=== PATIENT | male | born 1930 | race Caucasian/White ===

== ENCOUNTER 2017-12-14 16:49 | Emergency (ER) | payer MEDICARE ==
--- NOTE | 2017-12-14 17:19 | ED ---
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 Patient has been straight cathing himself for that time period. Patient presents today with 2 days of left testicular swelling. He also reports today when he was straight cathing himself he noticed some blood within his urine. Patient reports that yesterday evening he was gardening and feeling normal. He denies any fever or chills. Denies any new active pain. Patient states he's had no abdominal pain. His urologist is Dr. Daley.Patient denies any recent fever, chills, shortness of breath, chest pain, back pain, abdominal pain, nausea vomiting, numbness or tingling, constipation or diarrhea , headaches or visual changes, or any other current symptoms - Related Data Previous Rx's Medication Instructions Recorded Levofloxacin [Levaquin] 500 mg PO DAILY #20 tab 12/14/17 Allergies Allergy/AdvReac Type Severity Reaction Status Date / Time No Known Allergies Allergy Verified 12/14/17 17:02 Review of Systems ROS Statement: Those systems with pertinent positive or pertinent negative responses have been documented in the HPI. ROS Other: All systems not noted in ROS Statement are negative. Past Medical History Past Medical History: Thyroid Disorder Additional Past Medical History / Comment(s): Pt uses straight catheterization History of Any Multi-Drug Resistant Organisms: None Reported Past Surgical History: Hernia Repair, Orthopedic Surgery Past Psychological History: No Psychological Hx Reported Smoking Status: Former smoker Past Alcohol Use History: None Reported Past Drug Use History: None Reported General Exam - General Exam Comments Initial Comments: 87-year-old male. Alert and oriented. No acute distress. Limitations: no limitations General appearance: alert, in no apparent distress Head exam: Present: atraumatic Eye exam: Present: normal appearance, PERRL, EOMI. Absent: scleral icterus, conjunctival injection, periorbital swelling ENT exam: Present: normal exam, mucous membranes moist Neck exam: Present: normal inspection. Absent: tenderness, meningismus, lymphadenopathy Respiratory exam: Present: normal lung sounds bilaterally. Absent: respiratory distress, wheezes, rales, rhonchi, stridor Cardiovascular Exam: Present: regular rate, normal rhythm, normal heart sounds. Absent: systolic murmur, diastolic murmur, rubs, gallop, clicks GI/Abdominal exam: Present: soft, normal bowel sounds. Absent: distended, tenderness, guarding, rebound, rigid exam: Present: testicular tenderness (Left testicular tenderness and swelling noted.), scrotal swelling (Left-sided). Absent: circumcision (Patient is uncircumcised. Foreskin appears normal. Able to be retracted without difficulty.) Extremities exam: Present: normal inspection, full ROM, normal capillary refill. 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 Patient has been straight cathing himself for that time period. Patient presents today with 2 days of left testicular swelling. He also reports today when he was straight cathing himself he noticed some blood within his urine. Patient's urinalysis is positive for infection 60 white blood cells. Urine culture obtained. Ultrasound of the scrotum shows evidence of left sided epididymitis. Consistent with patient's consent systems and swelling. He does straight cath. Discussed sterile techniques to complete straight cath. We'll put the Patient on Levaquin for 10 days. Patient given n initial dose in the emergency department. Patient understands treatment plan will comply. He will follow-up with his urologist. - Lab Data Lab Results 12/14/17 Range/Units 17:28 Urine Color Yellow Urine Appearance Clear (Clear) Urine pH 5.5 (5.0-8.0) Ur Specific [place] 1.010 (1.001-1.035) Urine Protein Negative (Negative) Urine Glucose (UA) Negative (Negative) Urine Ketones Negative (Negative) Urine Blood Moderate H (Negative) Urine Nitrite Negative (Negative) Urine Bilirubin Negative (Negative) Urine Urobilinogen <2.0 (<2.0) mg/dL Ur Leukocyte Esterase Large H (Negative) Urine RBC 10 H (0-5) /hpf Urine WBC 61 H (0-5) /hpf Urine WBC Clumps Few H (None) /hpf - Radiology Data Radiology results: report reviewed Findings correlate with clinical exam is of left-sided epididymitis. Right testicle is 4.4 x 3.1 x 2 point recent admission. Left testicle is 4.9 x 3.8 x 3.5. Right epididymis 2.2 x 1 cm. Left epididymis is 2.4 x 1.9 x 2.6 m. The left testicular cyst Patient 0.6 5.6.5. Disposition Clinical Impression: Left epididymitis, UTI (urinary tract infection) Disposition: HOME SELF-CARE Condition: Good Instructions: Urinary Tract Infection in Men (ED), Epididymitis (ED), Scrotal Pain (ED) Additional Instructions: Patient was completely entire antibiotic prescription. Recommended follow-up with your urologist. Patient can do scrotal elevation. Return to the emergency department if any alarming signs or symptoms occur. Prescriptions: Levofloxacin [Levaquin] 500 mg PO DAILY #20 tab Is patient prescribed a controlled substance at d/c from ED?: No When asked, does pt state using other controlled substances?: No If prescribed controlled substance>3 days was MAPS reviewed?: No If opioid is for acute pain is fill amount 7 days or less?: No If Rx opioid, was Start Talking consent form obtained?: No Referrals: Angie Palomares MD [Primary Care Provider] - 1-2 days Time of Disposition: 19:41
[2017-12-14 17:40] LABS: Appearance,Urine Clear (Clear); Bilirubin,Urine Negative (Negative); Blood,Urine Moderate (Negative); Color,Urine Yellow; Glucose,Urine (UA) Negative (Negative); Ketones,Urine Negative (Negative); Leukocyte Esterase,Urine Large (Negative); Nitrite,Urine Negative (Negative); PH, Urine 5.5 (5.0-8.0); Protein,Urine Negative (Negative); RBC,Urine 10 /hpf (0-5); Urobilinogen,Urine <2.0 mg/dL (<2.0); WBC,Urine 61 /hpf (0-5)
[2017-12-14 19:11] VITALS: PULSE 70
--- NOTE | 2017-12-14 19:26 | US ---
EXAMINATION TYPE: US scrotum with doppler. Grayscale and color Doppler Duplex imaging performed of t keysha scrotum. DATE OF EXAM: 12/14/2017 COMPARISON: NONE CLINICAL HISTORY: Pain. EXAM MEASUREMENTS: TESTICLES: Right Testicle: 4.4 x 3.1 x 2.3 cm Left Testicle: 4.9 x 3.8 x 3.5 cm EPIDIDYMIS HEAD: Right Epididymis: 2.2 X 1.0 x 1.0 cm Left Epididymis: 2.4 x 1.9 x 2.6cm cm Doppler performed to assess for testicular vascularity; good bilateral color flow and waveforms are s een. There is no evidence of testicular torsion. Heterogeneous echotexture noted within bilateral testes. Presence of hydroceles: Small amount of fluid noted inferior left scrotal sac. Presence of varicoceles: No. Left scrotal sac has increased wall thickness. Enlarged left epididymis is seen throughout with hyper vascularity to left epididymis compared to right side. Left testicular cyst present = 0.6 x 0.6 x 0.5 cm at mid gland. IMPRESSION: 1. Negative for testicular torsion. 2. Findings which can correlate with a clinical diagnosis of left-sided epididymitis.
[2017-12-14] MEDS ORDERED: LEVOFLOXACIN 500 MG TAB PO STA (19:39)
[2017-12-14 19:52] VITALS: BP 119/70; RESP 18; TEMP 98.6
== END 2017-12-14 20:05 | disposition home or self-care (01) ==
LOC: EC 16:49
DX: N45.1 Epididymitis (principal); N39.0 Urinary tract infection, site not specified; Z87.891 Personal history of nicotine dependence
CPT/HCPCS: 76870; 81001; 87086; 93975; 99284

== ENCOUNTER 2018-03-14 16:29 | Inpatient (IN) | payer MEDICARE ==
[2018-03-14] MEDS ORDERED: ASPIRIN 81 MG PO STA (17:20)
[2018-03-14] MEDS ORDERED: SODIUM CHLORIDE 0.9% 1,000 ML IV STA (17:20)
--- NOTE | 2018-03-14 17:23 | ED ---
Chest Pain HPI - General Chief Complaint: Chest Pain Stated Complaint: Chest/arm pain Time Seen by Provider: 03/14/18 17:00 Source: patient, RN notes reviewed Mode of arrival: wheelchair Limitations: no limitations - History of Present Illness Initial Comments: This is a 87-year-old male with a history of prostatism no prior history of heart disease that he knows of who is had intermittent episodes of chest pain over the last week or so. He states it's intermittent 1-2 minutes in duration 4 -5/10 severity achy pain it radiates from his chest down his left arm. He also is had exertional dyspnea over last week or so. Currently he is symptom free no palpitations no lightheadedness dizziness blurry vision or other symptoms reported at this time. MD Complaint: chest pain, other - Related Data Previous Rx's Medication Instructions Recorded Levofloxacin [Levaquin] 500 mg PO DAILY #20 tab 12/14/17 Allergies Allergy/AdvReac Type Severity Reaction Status Date / Time No Known Allergies Allergy Verified 03/14/18 16:45 Review of Systems ROS Statement: Those systems with pertinent positive or pertinent negative responses have been documented in the HPI. ROS Other: All systems not noted in ROS Statement are negative. EKG Findings - EKG Results: EKG: interpreted by ERMD (Evidence of atrial fibrillation rate was 76 QRS 80 QT since QTC 44/454 low-voltage QRS nonspecific inferior changes poor R-wave progression occasional PVC) Past Medical History Past Medical History: Thyroid Disorder Additional Past Medical History / Comment(s): Pt uses straight catheterization History of Any Multi-Drug Resistant Organisms: None Reported Past Surgical History: Hernia Repair, Orthopedic Surgery Past Psychological History: No Psychological Hx Reported Smoking Status: Former smoker Past Alcohol Use History: None Reported Past Drug Use History: None Reported General Exam - General Exam Comments Initial Comments: This is a well up well-nourished awake alert oriented 3 male Limitations: no limitations General appearance: alert, in no apparent distress Head exam: Present: atraumatic, normocephalic, normal inspection Eye exam: Present: normal appearance, PERRL, EOMI. Absent: scleral icterus, conjunctival injection, periorbital swelling ENT exam: Present: normal exam, mucous membranes moist Neck exam: Present: normal inspection. Absent: tenderness, meningismus, lymphadenopathy Respiratory exam: Present: normal lung sounds bilaterally. Absent: respiratory distress, wheezes, rales, rhonchi, stridor Cardiovascular Exam: Present: irregular rhythm. Absent: systolic murmur, diastolic murmur, rubs, gallop, clicks GI/Abdominal exam: Present: soft, normal bowel sounds. Absent: distended, tenderness, guarding, rebound, rigid Extremities exam: Present: normal inspection, full ROM, normal capillary refill. Absent: tenderness, pedal edema, joint swelling, calf tenderness Back exam: Present: normal inspection Neurological exam: Present: alert, oriented X3, CN II-XII intact Psychiatric exam: Present: normal affect, normal mood Skin exam: Present: warm, dry, intact, normal color. 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 There is evidence of a 1.6 cm right lower lung nodule Critical Care Time Critical Care Time: Yes Critical Care Time: 31 minutes of critical care time which includes initial presentation with history physical labs x-rays reevaluation patient several occasions discussion with patient family regarding findings discussed with the main physician admission orders and documentation of the above Disposition Clinical Impression: Unstable angina pectoris, Chest pain, Right lower lobe pulmonary nodule Disposition: ADMITTED IP TO THIS [facility] Condition: Stable Referrals: Angie Palomares MD [Primary Care Provider] - 1-2 days
[2018-03-14 17:54] LABS: Basophils # (A) 0.1 k/uL (0-0.2); Basophils % (A) 1 %; Eosinophils # (A) 0.3 k/uL (0-0.7); Eosinophils % (A) 4 %; HCT 38.7 % (39.0-53.0); HGB 12.6 gm/dL (13.0-17.5); Lymphocytes # (A) 0.8 k/uL (1.0-4.8); Lymphocytes % (A) 12 %; MCH 29.4 pg (25.0-35.0); MCHC 32.5 g/dL (31.0-37.0); MCV 90.5 fL (80.0-100.0); Mean Platelet Volume 7.5; Monocytes # (A) 0.4 k/uL (0-1.0); Monocytes % (A) 6 %; Neutrophils # (A) 5.2 k/uL (1.3-7.7); Neutrophils % (A) 75 %; Platelet Count 141 k/uL (150-450); RBC 4.28 m/uL (4.30-5.90); RDW 13.8 % (11.5-15.5); WBC 6.9 k/uL (3.8-10.6)
[2018-03-14 18:05] LABS: Potassium 4.3 mmol/L (3.5-5.1); Total Bilirubin 2.2 mg/dL (0.2-1.3); Total Protein 6.8 g/dL (6.3-8.2)
[2018-03-14 18:13] LABS: INR 1.2 (<1.2); Partial Thromboplastin Time 25.4 sec (22.0-30.0); Prothrombin Time 11.4 sec (9.0-12.0)
[2018-03-14 18:26] LABS: Creatine Kinase MB 3.2 ng/mL (0.0-2.4); Troponin I 0.086 ng/mL (0.000-0.034)
--- NOTE | 2018-03-14 18:26 | XR ---
EXAMINATION TYPE: XR chest 2V DATE OF EXAM: 03/14/2018 COMPARISON: NONE HISTORY: Chest pain TECHNIQUE: Frontal and lateral views of the chest are obtained. FINDINGS: 1.6 cm nodule is seen in the right lower lung. There is no additional focal air space opaci ty, pleural effusion, or pneumothorax seen. The cardiac silhouette size is within normal limits. T he osseous structures are intact. IMPRESSION: 1.6 cm right lower lung nodule. Consideration should be given to nonemergent CT for further evaluatio n. Comparison with prior studies if available would be of benefit.
[2018-03-14] MEDS ORDERED: HEPARIN SODIUM,PORCINE 5,000 UNIT/ML 1 ML VIAL IV ONE (19:41)
[2018-03-14] MEDS ORDERED: NITROGLYCERIN SL TABS 0.4 MG TAB SUBLINGUAL PRN (19:41)
--- NOTE | 2018-03-14 19:44 | ED ---
Medical Decision Making - Lab Data Result diagrams: 03/14/18 17:21 03/14/18 17:21 Lab Results 03/14/18 03/14/18 03/14/18 Range/Units 17:21 17:21 17:21 WBC 6.9 (3.8-10.6) k/uL RBC 4.28 L (4.30-5.90) m/uL Hgb 12.6 L (13.0-17.5) gm/dL Hct 38.7 L (39.0-53.0) % MCV 90.5 (80.0-100.0) fL MCH 29.4 (25.0-35.0) pg MCHC 32.5 (31.0-37.0) g/dL RDW 13.8 (11.5-15.5) % Plt Count 141 L (150-450) k/uL Neutrophils % 75 % Lymphocytes % 12 % Monocytes % 6 % Eosinophils % 4 % Basophils % 1 % Neutrophils # 5.2 (1.3-7.7) k/uL Lymphocytes # 0.8 L (1.0-4.8) k/uL Monocytes # 0.4 (0-1.0) k/uL Eosinophils # 0.3 (0-0.7) k/uL Basophils # 0.1 (0-0.2) k/uL PT (9.0-12.0) sec INR (<1.2) APTT (22.0-30.0) sec Sodium 138 (137-145) mmol/L Potassium 4.3 (3.5-5.1) mmol/L Chloride 105 (98-107) mmol/L Carbon Dioxide 25 (22-30) mmol/L Anion Gap 8 mmol/L BUN 16 (9-20) mg/dL Creatinine 1.00 (0.66-1.25) mg/dL Est GFR (CKD-EPI)AfAm 78 (>60 ml/min/1.73 sqM) Est GFR (CKD-EPI)NonAf 67 (>60 ml/min/1.73 sqM) Glucose 112 H (74-99) mg/dL Calcium 9.0 (8.4-10.2) mg/dL Magnesium 2.0 (1.6-2.3) mg/dL Total Bilirubin 2.2 H (0.2-1.3) mg/dL AST 38 (17-59) U/L ALT 33 (21-72) U/L Alkaline Phosphatase 100 (38-126) U/L Total Creatine Kinase 176 H (55-170) U/L CK-MB (CK-2) 3.2 H* (0.0-2.4) ng/mL CK-MB (CK-2) Rel Index 1.8 Troponin I 0.086 H* (0.000-0.034) ng/mL Total Protein 6.8 (6.3-8.2) g/dL Albumin 4.0 (3.5-5.0) g/dL 03/14/18 Range/Units 17:21 WBC (3.8-10.6) k/uL RBC (4.30-5.90) m/uL Hgb (13.0-17.5) gm/dL Hct (39.0-53.0) % MCV (80.0-100.0) fL MCH (25.0-35.0) pg MCHC (31.0-37.0) g/dL RDW (11.5-15.5) % Plt Count (150-450) k/uL Neutrophils % % Lymphocytes % % Monocytes % % Eosinophils % % Basophils % % Neutrophils # (1.3-7.7) k/uL Lymphocytes # (1.0-4.8) k/uL Monocytes # (0-1.0) k/uL Eosinophils # (0-0.7) k/uL Basophils # (0-0.2) k/uL PT 11.4 (9.0-12.0) sec INR 1.2 H (<1.2) APTT 25.4 (22.0-30.0) sec Sodium (137-145) mmol/L Potassium (3.5-5.1) mmol/L Chloride (98-107) mmol/L Carbon Dioxide (22-30) mmol/L Anion Gap mmol/L BUN (9-20) mg/dL Creatinine (0.66-1.25) mg/dL Est GFR (CKD-EPI)AfAm (>60 ml/min/1.73 sqM) Est GFR (CKD-EPI)NonAf (>60 ml/min/1.73 sqM) Glucose (74-99) mg/dL Calcium (8.4-10.2) mg/dL Magnesium (1.6-2.3) mg/dL Total Bilirubin (0.2-1.3) mg/dL AST (17-59) U/L ALT (21-72) U/L Alkaline Phosphatase (38-126) U/L Total Creatine Kinase (55-170) U/L CK-MB (CK-2) (0.0-2.4) ng/mL CK-MB (CK-2) Rel Index Troponin I (0.000-0.034) ng/mL Total Protein (6.3-8.2) g/dL Albumin (3.5-5.0) g/dL Disposition Clinical Impression: Unstable angina pectoris, Chest pain, Right lower lobe pulmonary nodule, Atrial fibrillation Disposition: ADMITTED IP TO THIS HOSP Condition: Stable Referrals: Angie Palomares MD [Primary Care Provider] - 1-2 days
[2018-03-14] MEDS: SODIUM CHLORIDE 0.9% 1,000 ML IV SCH (20:06)
[2018-03-14] MEDS: HEPARIN SOD,PORK IN 0.45% NACL 25,000 UNIT in 0.45% NACL 1 500ML.BAG IV SCH (20:07)
[2018-03-14 21:02] VITALS: BMI 27.2
[2018-03-14] MEDS: NITROGLYCERIN OINT 1 INCH/GM PACKET TOPICAL SCH (23:01)
[2018-03-15 00:28] LABS: Troponin I 0.091 ng/mL (0.000-0.034)
[2018-03-15 01:32] LABS: Cholesterol 120 mg/dL (<200); HDL Cholesterol 66 mg/dL (40-60); LDL Cholesterol,Calculated 41 mg/dL (0-99); Triglycerides 64 mg/dL (<150)
[2018-03-15] MEDS: NITROGLYCERIN OINT 1 INCH/GM PACKET TOPICAL SCH ×4 (06:11→23:21)
[2018-03-15] MEDS: LEVOTHYROXINE 75 MCG TAB PO SCH (06:11)
[2018-03-15 06:57] LABS: Creatine Kinase MB 3.3 ng/mL (0.0-2.4); Troponin I 0.093 ng/mL (0.000-0.034)
--- NOTE | 2018-03-15 10:53 | P.CRDCN ---
History of Present Illness Consult date: 03/15/18 Requesting physician: Breonna Zapien Consult reason: chest pain Chief complaint: Chest pain History of present illness: This is a pleasant 87-year-old gentleman with no prior documented history of hypertension, no diabetes, no hyperlipidemia, nonsmoker, history of hypothyroidism and asthma, patient also states that he had been told in the past when he was in [place], 5 or 6 years ago to have had an irregular heartbeat , he was never initiated on any blood thinners. He also states he underwent a stress test and subsequent cardiac catheterization at that time and was told not to have any significant blockages. He presents to the hospital on this occasion with symptoms of approximately 2 week or more duration of chest discomfort. Initially patient started noticing, that when he would walk on his dry weight, even a short distance that he would need to stop because he would develop heaviness in his chest with some radiation to the back and down his arm , shortness of breath, symptoms would subside and patient would again this continue walking. He also states that he has been waking up on occasion at night and difficulty with taking a deep breath. Symptoms of chest discomfort had been getting progressively worse and for this reason he came to the emergency room for further evaluation. EKG on arrival showed atrial fibrillation with a heart rate in the 70s, occasional PVC. Subsequent EKG performed showed atrial fibrillation with controlled ventricular response. Inferior, anterior lateral changes suggesting prior myocardial infarction. Chest x-ray shows a 1.6 cm right lower lung nodule consideration should be given to non-emergent CT for further evaluation. Blood pressure 124/76 heart rate in the 80s, 97.3 temperature, 96% on room air. A blood cell count 6.9, hemoglobin 12.6, platelet count 141. Sodium 138, potassium 4.3, chloride 105, CO2 25, BUN 16, creatinine 1.0. Magnesium 2.0. Troponin 0.086, 0.091, 0.093. At the time of my examination this morning, patient denies any chest discomfort , breathing is stable. Past Medical History Past Medical History: Thyroid Disorder Additional Past Medical History / Comment(s): Pt uses straight catheterization History of Any Multi-Drug Resistant Organisms: None Reported Past Surgical History: Hernia Repair, Orthopedic Surgery Additional Past Surgical History / Comment(s): left knee replacement, back surgery, prostste surgery Past Psychological History: No Psychological Hx Reported Smoking Status: Former smoker Past Alcohol Use History: None Reported Past Drug Use History: None Reported Medications and Allergies Home Medications Medication Instructions Recorded Confirmed Type Levothyroxine Sodium [Synthroid] 75 mcg PO DAILY 03/14/18 03/15/18 History Albuterol Inhaler [Ventolin Hfa 1 - 2 puff INHALATION RT-Q6H PRN 03/15/18 History Inhaler] Allergies Allergy/AdvReac Type Severity Reaction Status Date / Time No Known Allergies Allergy Verified 03/15/18 09:25 Physical Exam Vitals: Vital Signs Temp Pulse Pulse Resp BP BP Pulse Ox 03/15/18 08:30 97.3 F L 82 16 125/76 96 03/15/18 03:59 77 18 03/15/18 03:58 97.2 F L 77 18 119/81 95 03/15/18 00:00 97.4 F L 85 18 118/77 94 L 03/14/18 21:00 85 18 03/14/18 20:51 97.0 F L 85 18 144/83 94 L 03/14/18 20:04 97.6 F 63 16 118/72 95 03/14/18 19:13 97.3 F L 75 18 122/70 95 03/14/18 18:44 71 18 124/70 98 03/14/18 17:24 56 L 03/14/18 16:41 98.6 F 82 18 129/82 95 Intake and Output 03/14/18 03/15/18 03/15/18 22:59 06:59 14:59 Intake Total 160 Balance 160 Intake: Intake, IV Titration 160 Amount Sodium Chloride 0.9% 1, 160 000 ml @ 20 mls/hr IV . Q24H [facility] Rx#:[id number] Other: Voiding Method Self-Catheterization Self-Catheterization Weight 86.183 kg 93.1 kg PHYSICAL EXAMINATION: GENERAL: 87-year-old gentleman in no acute distress at the time of my examination HEENT: Head is atraumatic, normocephalic. Pupils equal, round. Sclera anicteric. Conjunctiva are clear. Mucous membranes of the mouth are moist. Neck is supple. There is no elevated jugular venous pressure. No Carotid bruit is heard. HEART EXAMINATION: Heart S1-S2 irregularly irregular systolic murmur is heard. CHEST EXAMINATION: Lungs are clear to auscultation and precussion. No chest wall tenderness is noted on palpation or with deep breathing. ABDOMEN: Soft, nontender. Bowel sounds are heard. No organomegaly noted. EXTREMITIES: 2+ peripheral pulses with no evidence of peripheral edema and no calf tenderness noted. NEUROLOGIC patient is awake, alert and oriented X3. . Results 03/14/18 17:21 03/14/18 17:21 Cardiac Enzymes 03/14/18 03/14/18 03/14/18 Range/Units 17:21 17:21 23:18 AST 38 (17-59) U/L CK-MB (CK-2) 3.2 H* 3.0 H* (0.0-2.4) ng/mL Troponin I 0.086 H* 0.091 H* (0.000-0.034) ng/mL 03/15/18 Range/Units 05:54 AST (17-59) U/L CK-MB (CK-2) 3.3 H* (0.0-2.4) ng/mL Troponin I 0.093 H* (0.000-0.034) ng/mL Coagulation 03/14/1818 03/15/18 Range/Units 17:21 23:18 05:54 PT 11.4 (9.0-12.0) sec APTT 25.4 51.5 H 54.4 H (22.0-30.0) sec Lipids 03/14/18 Range/Units 17:21 Triglycerides 64 (<150) mg/dL Cholesterol 120 (<200) mg/dL HDL Cholesterol 66 H (40-60) mg/dL CBC 03/14/18 Range/Units 17:21 WBC 6.9 (3.8-10.6) k/uL RBC 4.28 L (4.30-5.90) m/uL Hgb 12.6 L (13.0-17.5) gm/dL Hct 38.7 L (39.0-53.0) % Plt Count 141 L (150-450) k/uL Comprehensive Metabolic Panel 03/14/18 Range/Units 17:21 Sodium 138 (137-145) mmol/L Potassium 4.3 (3.5-5.1) mmol/L Chloride 105 (98-107) mmol/L Carbon Dioxide 25 (22-30) mmol/L BUN 16 (9-20) mg/dL Creatinine 1.00 (0.66-1.25) mg/dL Glucose 112 H (74-99) mg/dL Calcium 9.0 (8.4-10.2) mg/dL AST 38 (17-59) U/L ALT 33 (21-72) U/L Alkaline Phosphatase 100 (38-126) U/L Total Protein 6.8 (6.3-8.2) g/dL Albumin 4.0 (3.5-5.0) g/dL Current Medications Generic Name Dose Route Start Last Admin Trade Name Freq PRN Reason Stop Dose Admin Aspirin 325 mg 03/15/18 09:00 Aspirin PO DAILY [facility] Heparin Sodium/Sodium Chloride 500 mls @ 19.99 mls/hr 03/14/18 19:45 20:07 25,000 unit/ Sodium Chloride IV 11.6 units/kg/hr .Q24H [facility]A 19.99 mls/hr Administration Protocol 11.6 UNITS/KG/HR Sodium Chloride 1,000 mls @ 20 mls/hr 03/14/18 19:45 03/14/18 20:06 Saline 0.9% IV 20 mls/hr .Q24H [facility] Administration Levothyroxine Sodium 75 mcg 03/15/18 06:00 03/15/18 06:11 Synthroid PO 75 mcg DAILY@0600 [facility] Administration Nitroglycerin 1 inch 03/15/18 00:00 03/15/18 06:11 Nitro-Bid Oint TOPICAL Not Given Q6HR [facility] Nitroglycerin 0.4 mg 03/14/18 19:41 Nitrostat SUBLINGUAL Q5M PRN Chest Pain Intake and Output 03/14/18 03/15/18 03/15/18 22:59 06:59 14:59 Intake Total 160 Balance 160 Intake: Intake, IV Titration 160 Amount Sodium Chloride 0.9% 1, 160 000 ml @ 20 mls/hr IV . 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 Assessment and Plan Plan: Assessment and plan #1 symptoms of exertional chest discomfort and shortness of breath, suggestive of possible acute coronary syndrome. Troponins 0.08, 0.09, 0.09. EKG shows atrial fibrillation with controlled ventricular response, ST-T wave changes suggestive of prior inferior anterior lateral [place] #2 history of cardiac catheterization 5 or 6 years ago in [place] at which time patient was told not to have any significant obstructive coronary artery disease #3 atrial fibrillation, chronic persistent, not on anticoagulation #4 hypothyroidism Plan We will obtain an echocardiogram with Doppler study. Continue IV heparin at this time. We will start the patient on a statin as well as beta marce, continue aspirin. Patient may require further intervention in the form of cardiac catheterization, the risks and benefits were explained to him in detail. We will first review the results of the echocardiogram with Doppler study. Patient was also educated regarding the need for anticoagulation. DNP note has been reviewed, I agree with a documented findings and plan of care. Patient was seen and examined.
[2018-03-15] MEDS: ASPIRIN 325 MG TAB PO SCH (12:13)
--- NOTE | 2018-03-15 12:35 | ECHOF ---
Referral Reason:chest pain MEASUREMENTS -------- HEIGHT: 177.8 cm WEIGHT: 93.0 kg BP: 125/76 RVIDd: 3.0 cm (< 3.3) IVSd: 1.6 cm (0.6 - 1.1) LVIDd: 4.0 cm (3.9 - 5.3) LVPWd: 1.4 cm (0.6 - 1.1) IVSs: 1.9 cm LVIDs: 2.8 cm LVPWs: 1.7 cm LAESV Index (A-L): 47.92 ml/m Ao Diam: 3.4 cm (2.0 - 3.7) AV Cusp: 2.3 cm (1.5 - 2.6) LA Diam: 3.9 cm (2.7 - 3.8) EPSS: 0.2 cm MV E Chencho: 1.12 m/s MV DecT: 245 ms MV A Chencho: 0.01 m/s MV E/A Ratio: 204.46 RAP: 15.00 mmHg RVSP: 43.09 mmHg MV EF SLOPE: 129.61 mm/s (70 - 150) MV EXCURSION: 1.73 cm (> 18.000) FINDINGS -------- Atrial fibrillation. This was a technically adequate study. The left ventricular size is normal. There is moderate concentric left ventricular hypertrophy. O verall left ventricular systolic function is mildly impaired with, an EF between 45 - 50 %. The right ventricle is normal in size and function. LA is severely dilated >40 ml/m2 The right atrium is markedly enlarged. There is mild aortic valve sclerosis. There is no evidence of aortic regurgitation. There is no e vidence of aortic stenosis. The mitral valve leaflets are mildly thickened. [id number] mitral regurgitation is present. Moderate to severe tricuspid regurgitation present. There is mild pulmonary hypertension. The rig ht ventricular systolic pressure, as measured by Doppler, is 43.09mmHg. The pulmonic valve was not well visualized. There is no pulmonic regurgitation present. The aortic root size is normal. The inferior vena cava is dilated with no significant inspiratory collapse which is consistent estima imelda right atrial pressure of >20 mmHg. There is a trivial pericardial effusion present. CONCLUSIONS -------- 1. Atrial fibrillation. 2. This was a technically adequate study. 3. The left ventricular size is normal. 4. There is moderate concentric left ventricular hypertrophy. 5. Overall left ventricular systolic function is mildly impaired with, an EF between 45 - 50 %. 6. LA is severely dilated >40 ml/m2 7. The right atrium is markedly enlarged. 8. There is mild aortic valve sclerosis. 9. The mitral valve leaflets are mildly thickened. 10. [id number] mitral regurgitation is present. 11. Moderate to severe tricuspid regurgitation present. 12. There is mild pulmonary hypertension. 13. The pulmonic valve was not well visualized. 14. There is no pulmonic regurgitation present. 15. The aortic root size is normal. 16. The inferior vena cava is dilated with no significant inspiratory collapse which is consistent es timated right atrial pressure of >20 mmHg. 17. There is a trivial pericardial effusion present. [employer] HAND: Tom Corona RDCS
--- NOTE | 2018-03-15 13:53 | P.HPIM ---
History of Present Illness H&P Date: 03/15/18 Chief Complaint: Chest pain Mr. Sanchez is an 87-year-old male with a past medical history of hypothyroidism admitted to the hospital with a chief complaint of chest pain. The patient states that he has been having substernal chest pain on and off, that is exertional in nature, 6 out of 10 in intensity, radiating to his left shoulder and back. Patient also complaining of exertional dyspnea for the past couple of weeks. Patient denies having any fever, cough. No sick contacts. Patient denies having any sweating or dizziness associated with the chest pain. No loss of consciousness or lightheadedness or blurring of vision. Patient denies having any orthopnea or PND or lower extremity swelling. Patient does not have any history of coronary artery disease. He states that he had a stress test done 5-6 years back and was told to be normal. At baseline patient is healthy able to take care of himself and lives with his . Patient denies having any history of smoking or alcohol use. Review of Systems REVIEW OF SYSTEMS: PSYCH: No history of anxiety or depression NEURO:No c/o weakness of the extremties, No facial droop, No speech abnormalities. VASCULAR: No lower extremity swelling. HEMATOLOGIC: No history of easy bleeding and bruising . No recent infections . RESPIRATORY: No cough, No SOB, No chest discomfort. IMMUNE: No infections INTEGUMENT: no rashes OPHTHALMOLOGIC: No blurry vision and no eye discharge : No dysuria or hematuria CARDIAC: As per HPI MUSCULOSKELETAL : No Aches or pains in the joints or muscles. GI: No abdominal pain, Nausea or vomiting. No constipation or diarrhea. Past Medical History Past Medical History: Thyroid Disorder Additional Past Medical History / Comment(s): Pt uses straight catheterization History of Any Multi-Drug Resistant Organisms: None Reported Past Surgical History: Hernia Repair, Orthopedic Surgery Additional Past Surgical History / Comment(s): left knee replacement, back surgery, prostste surgery Past Psychological History: No Psychological Hx Reported Smoking Status: Former smoker Past Alcohol Use History: None Reported Past Drug Use History: None Reported Medications and Allergies Home Medications Medication Instructions Recorded Confirmed Type Levothyroxine Sodium [Synthroid] 75 mcg PO DAILY 03/14/18 03/15/18 History Albuterol Inhaler [Ventolin Hfa 1 - 2 puff INHALATION RT-Q6H PRN 03/15/18 History Inhaler] Allergies Allergy/AdvReac Type Severity Reaction Status Date / Time No Known Allergies Allergy Verified 03/15/18 09:25 Physical Exam Vitals: Vital Signs Temp Pulse Pulse Resp BP BP Pulse Ox 03/15/18 11:55 88 16 129/72 95 03/15/18 08:30 97.3 F L 82 16 125/76 96 03/15/18 03:59 77 18 03/15/18 03:58 97.2 F L 77 18 119/81 95 03/15/18 00:00 97.4 F L 85 18 118/77 94 L 03/14/18 21:00 85 18 03/14/18 20:51 97.0 F L 85 18 144/83 94 L 03/14/18 20:04 97.6 F 63 16 118/72 95 03/14/18 19:13 97.3 F L 75 18 122/70 95 03/14/18 18:44 71 18 124/70 98 03/14/18 17:24 56 L 03/14/18 16:41 98.6 F 82 18 129/82 95 Intake and Output 03/14/18 03/15/18 03/15/18 22:59 06:59 14:59 Intake Total 160 240 Output Total 600 Balance 160 -360 Intake: Intake, IV Titration 160 Amount Sodium Chloride 0.9% 1, 160 000 ml @ 20 mls/hr IV . Q24H [facility] Rx#:[id number] Oral 240 Output: Urine 600 Other: Voiding Method Self-Catheterization Self-Catheterization Self-Catheterization Weight 86.183 kg 93.1 kg GENERAL EXAM GEN. APPEARANCE: alert, in no apparent distress HEAD EXAM: atraumatic, normocephalic, normal inspection EYE EXAM: No pallor no icterus ENT EXAM: normal exam, mucous membranes moist NECK EXAM: No JVD no thyromegaly RESPIRATORY EXAM: Bilateral breath sounds are normal. Few crackles on the right lower lobe. CARDIOVASCULAR EXAM: S1-S2 heard, tachycardia GI/ABDOMINAL EXAM: soft, normal bowel sounds. Absent: distended, tenderness, guarding, rebound, rigid EXTREMITIES EXAM: No pedal edema BACK EXAM: normal inspection NEUROLOGICAL EXAM: alert, oriented X3, no focal neurological deficits PSYCHIATRIC EXAM: normal affect, normal mood SKIN EXAM: warm, dry, intact, normal color. Absent: rash Results CBC & Chem 7: 03/14/18 17:21 03/14/18 17:21 Labs: Abnormal Lab Results - Last 24 Hours (Table) 03/14/18 03/14/18 03/14/18 Range/Units 17:21 17:21 17:21 RBC 4.28 L (4.30-5.90) m/uL Hgb 12.6 L (13.0-17.5) gm/dL Hct 38.7 L (39.0-53.0) % Plt Count 141 L (150-450) k/uL Lymphocytes # 0.8 L (1.0-4.8) k/uL INR (<1.2) APTT (22.0-30.0) sec Glucose 112 H (74-99) mg/dL Total Bilirubin 2.2 H (0.2-1.3) mg/dL Total Creatine Kinase 176 H (55-170) U/L CK-MB (CK-2) 3.2 H* (0.0-2.4) ng/mL Troponin I 0.086 H* (0.000-0.034) ng/mL HDL Cholesterol (40-60) mg/dL 03/14/18 03/14/18 03/14/18 Range/Units 17:21 17:21 23:18 RBC (4.30-5.90) m/uL Hgb (13.0-17.5) gm/dL Hct (39.0-53.0) % Plt Count (150-450) k/uL Lymphocytes # (1.0-4.8) k/uL INR 1.2 H (<1.2) APTT (22.0-30.0) sec Glucose (74-99) mg/dL Total Bilirubin (0.2-1.3) mg/dL Total Creatine Kinase (55-170) U/L CK-MB (CK-2) 3.0 H* (0.0-2.4) ng/mL Troponin I 0.091 H* (0.000-0.034) ng/mL HDL Cholesterol 66 H (40-60) mg/dL 03/14/18 03/15/18 03/15/18 Range/Units 23:18 05:54 05:54 RBC (4.30-5.90) m/uL Hgb (13.0-17.5) gm/dL Hct (39.0-53.0) % Plt Count (150-450) k/uL Lymphocytes # (1.0-4.8) k/uL INR (<1.2) APTT 51.5 H 54.4 H (22.0-30.0) sec Glucose (74-99) mg/dL Total Bilirubin (0.2-1.3) mg/dL Total Creatine Kinase (55-170) U/L CK-MB (CK-2) 3.3 H* (0.0-2.4) ng/mL Troponin I 0.093 H* (0.000-0.034) ng/mL HDL Cholesterol (40-60) mg/dL Thrombosis Risk Factor Assmnt - Choose All That Apply Any of the Below Risk Factors Present?: No Other Risk Factors: Yes Each Risk Factor Represents 3 Points: Age 75 years or older Thrombosis Risk Factor Assessment Total Risk Factor Score: 3 Thrombosis Risk Factor Assessment Level: Moderate Risk Assessment and Plan Assessment: ASSESSMENT NSTEMI A. fib with rate controlled Hypothyroidism Degenerative joint disease Plan: Patient has been started on IV heparin. Echocardiogram with Doppler pending. Cardiology has been consulted. Currently his A. fib is rate controlled, no acute intervention necessary. Continue with the rest of his home medications. Further recommendations depending on the progress of the patient. The treatment plan was discussed with the , daughter and granddaughter at the bedside in detail.
[2018-03-15] MEDS: METOPROLOL TARTRATE 25 MG TAB PO SCH (20:14)
[2018-03-15] MEDS: SODIUM CHLORIDE 0.9% 1,000 ML IV SCH (20:17)
[2018-03-15] MEDS: HEPARIN SOD,PORK IN 0.45% NACL 25,000 UNIT in 0.45% NACL 1 500ML.BAG IV SCH (22:32)
[2018-03-16] MEDS: LEVOTHYROXINE 75 MCG TAB PO SCH (06:29)
[2018-03-16] MEDS: NITROGLYCERIN OINT 1 INCH/GM PACKET TOPICAL SCH ×4 (06:29→23:14)
[2018-03-16 06:38] LABS: Basophils % (A) 1 %; Eosinophils # (A) 0.2 k/uL (0-0.7); Eosinophils % (A) 5 %; HCT 35.2 % (39.0-53.0); HGB 11.2 gm/dL (13.0-17.5); Lymphocytes # (A) 0.8 k/uL (1.0-4.8); Lymphocytes % (A) 19 %; MCH 29.5 pg (25.0-35.0); MCHC 31.9 g/dL (31.0-37.0); MCV 92.3 fL (80.0-100.0); Mean Platelet Volume 7.3; Monocytes # (A) 0.3 k/uL (0-1.0); Monocytes % (A) 6 %; Neutrophils # (A) 2.9 k/uL (1.3-7.7); Neutrophils % (A) 68 %; Platelet Count 131 k/uL (150-450); RBC 3.81 m/uL (4.30-5.90); RDW 13.9 % (11.5-15.5); WBC 4.3 k/uL (3.8-10.6)
[2018-03-16 06:52] LABS: Calcium 8.5 mg/dL (8.4-10.2); Potassium 4.4 mmol/L (3.5-5.1)
[2018-03-16] MEDS ORDERED: NITROGLYCERIN SL TABS 0.4 MG TAB SUBLINGUAL PRN (08:44)
[2018-03-16] MEDS ORDERED: ALPRAZolam 0.5 MG TAB PO PRN (08:44)
[2018-03-16] MEDS ORDERED: ASPIRIN 325 MG TAB PO STA (08:44)
[2018-03-16] MEDS ORDERED: ATORVASTATIN 40 MG TAB PO STA (08:44)
[2018-03-16] MEDS ORDERED: SODIUM CHLORIDE 0.9% 1,000 ML in EMPTY BAG 1 BAG IV ONE (08:44)
[2018-03-16] MEDS ORDERED: ALPRAZolam 0.25 MG TAB PO PRN (08:44)
[2018-03-16] MEDS: METOPROLOL TARTRATE 25 MG TAB PO SCH ×2 (08:46→20:30)
[2018-03-16] MEDS: ASPIRIN 325 MG TAB PO SCH (08:46)
[2018-03-16] MEDS: ATORVASTATIN 40 MG TAB PO SCH (08:46)
[2018-03-16 11:28] LABS: Glucose,Whole Blood 108 mg/dL (75-99)
[2018-03-16] MEDS ORDERED: IV FLUID CONTINUATION 800 ML IV ONE (13:44)
[2018-03-16] MEDS: fentaNYL (PF) 50 MCG/ML 2 ML AMP IV ONE ×2 (13:44→13:49)
[2018-03-16] MEDS ORDERED: LIDOCAINE 1% (PF) 10MG/ML VIAL SQ ONE (13:49)
[2018-03-16] MEDS ORDERED: IOPAMIDOL-370 125ML BTL INJ ONE (14:06)
[2018-03-16] MEDS ORDERED: RX INFO: IV CONTRAST WAS GIVEN 1 EACH MISC MISCELLANE PRN (14:24)
--- NOTE | 2018-03-16 14:52 | P.CARDCATH ---
Date of Procedure: 03/16/18 Preoperative Diagnosis: Non-ST elevation IL, CHF, atrial fibrillation Postoperative Diagnosis: Diffuse noncritical coronary artery disease, preserved LV function and moderate mitral regurgitation Procedure(s) Performed: Left heart catheterization with left ventriculography Description of Procedure: HISTORY: This is a 87-year-old gentleman with history of mild coronary artery disease who was admitted to the hospital with increasing shortness of breath and chest pains. Patient had abnormal troponin values consistent with non-ST elevation IL. EKG however, did not show any acute changes. Patient is advised to have a cardiac catheterization for definitive diagnosis. Echo showed evidence of moderate to severe mitral regurgitation. BNP levels are elevated. CONSENT:I have discussed the risks, benefits and alternative therapies for the above-mentioned procedure and for both sedation/analgesia as well as necessary blood product administration, if indicated, as they pertain to this patient. The patient has indicated understanding and acceptance of the risks and procedures discussed. [] PROCEDURE: Patient was brought to the lab in a fasting state. Patient was given some IV sedation. The right groin is infiltrated with lidocaine and right femoral artery was entered using Seldinger technique. A 6-Arabic catheter was left in place and selective coronary arteriography and left ventriculography was performed. Patient tolerated the procedure well. Femoral angiogram was performed and Angio-Seal was applied for hemostasis. No immediate complications were noted and patient was transferred to selective care in a stable condition Conscious Sedation: Versed 0 mg Fentanyl 37.5 g Duration 20 minutes HEMODYNAMICS: The aortic pressure is 140/95. Left ventricular end-diastolic pressure is 16. No gradient across the aortic valve SELECTIVE CORONARY ARTERIOGRAPHY: LEFT MAIN: Normal length and patent THE LEFT ANTERIOR DESCENDING CORONARY ARTERY:. Diffuse coronary artery disease with about 40-50% stenosis in the proximal segment and a 50-60% stenosis in the distal segment. No critical lesions are noted THE LEFT CIRCUMFLEX AND IS CORONARY ARTERY:. Dominant vessel giving rise to good-sized OM branch. Free of any significant occlusive disease THE RIGHT CORONARY ARTERY:. Good caliber vessel giving rise to good-sized PDA and PLV. Free of any significant occlusive disease LEFT VENTRICULOGRAPHY:. This was performed 30 right and Toprol projection which revealed mildly dilated left ventricle with fairly preserved LV function. Ejection fraction is a 50-55%. There is about 3+ mitral regurgitation FINAL IMPRESSION: Diffuse coronary artery disease with a intermediate disease in the LAD in the proximal and midportion. Right coronary artery and circumflex are free of any significant focal lesions PLAN: Maximum medical therapy and this factor modification PROGNOSIS: Guarded
[2018-03-16] MEDS ORDERED: IBUPROFEN 400 MG TAB PO STA (15:30)
[2018-03-16] MEDS: FUROSEMIDE 40 MG TAB PO SCH (15:35)
[2018-03-16] MEDS: SODIUM CHLORIDE 0.9% 1,000 ML IV SCH (15:35)
[2018-03-16 16:34] VITALS: RESP 18
[2018-03-16] MEDS ORDERED: HEPARIN SOD,PORK IN 0.45% NACL 25,000 UNIT in 0.45% NACL 1 500ML.BAG IV SCH ×2 (18:30)
[2018-03-17] MEDS: SODIUM CHLORIDE 0.9% 1,000 ML IV SCH (05:04)
[2018-03-17 06:44] LABS: Calcium 8.5 mg/dL (8.4-10.2); Potassium 4.2 mmol/L (3.5-5.1)
[2018-03-17] MEDS: LEVOTHYROXINE 75 MCG TAB PO SCH (06:44)
[2018-03-17] MEDS: NITROGLYCERIN OINT 1 INCH/GM PACKET TOPICAL SCH ×2 (06:53→11:48)
[2018-03-17] MEDS: FUROSEMIDE 40 MG TAB PO SCH (08:09)
[2018-03-17] MEDS: ASPIRIN 325 MG TAB PO SCH (08:09)
[2018-03-17] MEDS: METOPROLOL TARTRATE 25 MG TAB PO SCH (08:09)
[2018-03-17] MEDS: ATORVASTATIN 40 MG TAB PO SCH (08:09)
[2018-03-17] MEDS ORDERED: APIXABAN 2.5 MG TABLET PO SCH (11:45)
[2018-03-17 12:31] VITALS: BP 143/85; PULSE 70; TEMP 96
--- NOTE | 2018-03-17 13:38 | P.PN ---
Subjective Progress Note Date: 03/16/18 Principal diagnosis: Acute non-ST elevated OR Atrial fibrillation with controlled ventricular rate Mr. Sanchez is an 87-year-old male with a past medical history of hypothyroidism admitted to the hospital with a chief complaint of chest pain. The patient states that he has been having substernal chest pain on and off, that is exertional in nature, 6 out of 10 in intensity, radiating to his left shoulder and back. Patient also complaining of exertional dyspnea for the past couple of weeks. Patient denies having any fever, cough. No sick contacts. Patient denies having any sweating or dizziness associated with the chest pain. No loss of consciousness or lightheadedness or blurring of vision. Patient denies having any orthopnea or PND or lower extremity swelling. Patient does not have any history of coronary artery disease. He states that he had a stress test done 5-6 years back and was told to be normal. At baseline patient is healthy able to take care of himself and lives with his . Patient denies having any history of smoking or alcohol use. 03/16/2018 Patient denied any complaints of worsening shortness of breath. Patient does have some chest tightness. Otherwise no fever no chills. Continues to be in atrial fibrillation. Patient is being taken to cardiac catheterization today. Continued on heparin drip. No nausea vomiting or abdominal pain. No other acute overnight issues. Discussed with the family in detail at bedside. All other review of systems negative except the above Current medications reviewed Objective - Vital Signs Vital signs: Vital Signs Temp 97.2 F L 03/16/18 08:00 Pulse 71 03/16/18 08:00 Resp 18 03/16/18 08:00 BP 100/74 03/16/18 08:00 Pulse Ox 94 L 03/16/18 08:00 Intake & Output 03/15/18 03/16/18 03/16/18 18:59 06:59 18:59 Intake Total 560 720 Output Total 600 Balance -40 720 Weight 92.9 kg Intake: IV 220 Sodium Chloride 0.9% 1, 220 000 ml @ 20 mls/hr IV . Q24H [facility] Rx#:[id number] Intake, IV Titration 320 500 Amount Heparin Sod,Pork in 0.45% 160 500 NaCl 25,000 unit In 0.45 % NaCl 1 500ml.bag @ 11.6 UNITS/KG/HR 19.99 mls/hr IV .Q24H [facility] Rx#: [id number] Sodium Chloride 0.9% 1, 160 000 ml @ 20 mls/hr IV . Q24H [facility] Rx#:[id number] Oral 240 Output: Urine 600 Other: Voiding Method Self-Catheterization Self-Catheterization Self-Catheterization - Exam PHYSICAL EXAMINATION: Patient is lying in the bed comfortably, no acute distress, awake alert and oriented. Hard of hearing.. HEENT: Normocephalic. Neck is supple. Pupils reactive. Nostrils clear. Oral cavity is moist. Ears reveal no drainage. Neck reveals no JVD, carotid bruits, or thyromegaly. CHEST EXAMINATION: Trachea is central. Symmetrical expansion. Bibasilar diminished air entry. Lung guy clear to auscultation and percussion. CARDIAC: Normal S1, S2 with no gallops. Systolic murmur. ABDOMEN: Soft. Bowel sounds normal. No organomegaly. No abdominal bruits. Extremities: reveal no edema. No clubbing or cyanosis Neurologically awake, alert, oriented x3 with well-coordinated movements. Possible underlying dementia. No focal deficits noted Skin: No rash or skin lesions. Psychiatric: Coperative. Nonsuicidal Musculoskeletal: No joint swelling or deformity. Normal range of motion. - Labs CBC & Chem 7: 03/16/18 05:55 03/17/18 05:52 Labs: Abnormal Lab Results - Last 24 Hours (Table) 03/16/18 03/16/18 03/16/18 Range/Units 05:55 05:55 05:55 RBC 3.81 L (4.30-5.90) m/uL Hgb 11.2 L (13.0-17.5) gm/dL Hct 35.2 L (39.0-53.0) % Plt Count 131 L (150-450) k/uL Lymphocytes # 0.8 L (1.0-4.8) k/uL APTT 56.6 H (22.0-30.0) sec Sodium 135 L (137-145) mmol/L Assessment and Plan Assessment: Acute NSTEMI A. fib with rate controlled Hypothyroidism Degenerative joint disease Possible dementia Plan: Patient will be continued on heparin drip. 2-D echocardiogram showed normal ejection fraction and moderate to severe tricuspid and mitral regurgitation. Cardiology is planning for cardiac catheterization today. Otherwise continue the current management and further recommendations based on the clinical course. The treatment plan was discussed with the , daughter and granddaughter at the bedside in detail. Time with Patient: Greater than 30
--- NOTE | 2018-03-17 13:54 | P.DS ---
Providers Date of admission: 03/14/18 19:41 Expected date of discharge: 03/17/18 Attending physician: Breonna Zapien Consults: 03/14/18 19:41 Consult Physician Urgent Consulting Provider: Ryan Bardales Consult Reason/Comments: Chest pain, unstable angina, elevated troponin Do you want consulting provider notified?: Yes Primary care physician: Angie Palomares Hospital Course: Discharge diagnosis Acute NSTEMI. Status post cardiac catheterization ASabrina mckeon with rate controlled Hypothyroidism Degenerative joint disease Possible dementia Moderate mitral regurgitation Hospital course Mr. Sanchez is an 87-year-old male with a past medical history of hypothyroidism admitted to the hospital with a chief complaint of chest pain. The patient states that he has been having substernal chest pain on and off, that is exertional in nature, 6 out of 10 in intensity, radiating to his left shoulder and back. Patient also complaining of exertional dyspnea for the past couple of weeks. Patient denies having any fever, cough. No sick contacts. Patient denies having any sweating or dizziness associated with the chest pain. No loss of consciousness or lightheadedness or blurring of vision. Patient denies having any orthopnea or PND or lower extremity swelling. Patient does not have any history of coronary artery disease. He states that he had a stress test done 5-6 years back and was told to be normal. At baseline patient is healthy able to take care of himself and lives with his . Patient denies having any history of smoking or alcohol use. 03/16/2018 Patient denied any complaints of worsening shortness of breath. Patient does have some chest tightness. Otherwise no fever no chills. Continues to be in atrial fibrillation. Patient is being taken to cardiac catheterization today. Continued on heparin drip. No nausea vomiting or abdominal pain. No other acute overnight issues. Discussed with the family in detail at bedside. 03/17/2018 Cardiac catheterization showed Diffuse noncritical coronary artery disease, preserved LV function and moderate mitral regurgitation. Patient denied any complaints of chest pain or shortness of breath. Continues to be on atrial fibrillation. Clear Cardiology standpoint. Plan: Patient was continued on heparin drip. 2-D echocardiogram showed normal ejection fraction and moderate to severe tricuspid and mitral regurgitation. Patient underwent cardiac catheterization. Ventricular rate is controlled otherwise patient is still in atrial fibrillation. Patient was was started on oral anticoagulation. Patient otherwise denied any new complaints. Symptomatically much improved. Recommended to follow-up with cardiology clinic and maximal medical therapy will be continued. The treatment plan was discussed with the , daughter and granddaughter at the bedside in detail. PHYSICAL EXAMINATION: Patient is lying in the bed comfortably, no acute distress, awake alert and oriented.. HEENT: Normocephalic. Neck is supple. Pupils reactive. Nostrils clear. Oral cavity is moist. Ears reveal no drainage. Neck reveals no JVD, carotid bruits, or thyromegaly. CHEST EXAMINATION: Trachea is central. Symmetrical expansion. Lung guy clear to auscultation and percussion. CARDIAC: Normal S1, S2 with no gallops. Systolic murmurs ABDOMEN: Soft. Bowel sounds normal. No organomegaly. No abdominal bruits. Extremities: reveal no edema. No clubbing or cyanosis Neurologically awake, alert, oriented x3 with well-coordinated movements. No focal deficits noted Skin: No rash or skin lesions. Psychiatric: Coperative. Nonsuicidal Musculoskeletal: No joint swelling or deformity. Normal range of motion. Vital Signs - 8 hr 03/17/18 03/17/18 07:58 12:00 Temperature 97.0 F L 96.0 F L Pulse Rate [ 80 70 Pick Up Man ] Respiratory 18 18 Rate Blood Pressure 141/83 143/85 [Right Arm] O2 Sat by Pulse 91 L 93 L Oximetry Total time taken greater than 35 minutes including 18 minutes for counseling and coordination of care. Patient Condition at Discharge: Stable Plan - Discharge Summary Discharge Rx Participant: No New Discharge Prescriptions: New Apixaban [Eliquis] 2.5 mg PO BID #60 tablet Aspirin 81 mg PO DAILY #30 chew Atorvastatin [Lipitor] 40 mg PO DAILY #30 tab Metoprolol Tartrate [Lopressor] 25 mg PO BID #60 tab Nitroglycerin Sl Tabs [Nitrostat] 0.4 mg SUBLINGUAL Q5M PRN #30 tab PRN Reason: Chest Pain Furosemide [Lasix] 40 mg PO BID@0900,1600 #60 tab Continue Levothyroxine Sodium [Synthroid] 75 mcg PO DAILY Albuterol Inhaler [Ventolin Hfa Inhaler] 1 - 2 puff INHALATION RT-Q6H PRN PRN Reason: Shortness Of Breath Discharge Medication List Levothyroxine Sodium [Synthroid] 75 mcg PO DAILY 03/14/18 [History] Albuterol Inhaler [Ventolin Hfa Inhaler] 1 - 2 puff INHALATION RT-Q6H PRN [History] Apixaban [Eliquis] 2.5 mg PO BID #60 tablet 03/17/18 [Rx] Aspirin 81 mg PO DAILY #30 chew 03/17/18 [Rx] Atorvastatin [Lipitor] 40 mg PO DAILY #30 tab 03/17/18 [Rx] Furosemide [Lasix] 40 mg PO BID@0900,1600 #60 tab 03/17/18 [Rx] Metoprolol Tartrate [Lopressor] 25 mg PO BID #60 tab 03/17/18 [Rx] Nitroglycerin Sl Tabs [Nitrostat] 0.4 mg SUBLINGUAL Q5M PRN #30 tab 03/17/18 [Rx ] Follow up Appointment(s)/Referral(s): Emilia Nichols NPC [Nurse Practitioner] - 03/24/18 10:30 am (Thursday) Angie Palomares MD [Primary Care Provider] - 03/23/18 9:00 am (Thursday) Patient Instructions/Handouts: *Surgery [facility] - After Heart Catheterization - Packager Head Instructions, A-fib (Atrial Fibrillation) (DC), Left Heart Catheterization (DC), Safe Use of Anticoagulants (DC) Discharge Disposition: HOME SELF-CARE
--- NOTE | 2018-03-17 14:22 | P.PN ---
Subjective Progress Note Date: 03/17/18 This is a pleasant 87-year-old gentleman with no prior documented history of hypertension, no diabetes, no hyperlipidemia, nonsmoker, history of hypothyroidism and asthma, patient also states that he had been told in the past when he was in [place], 5 or 6 years ago to have had an irregular heartbeat , he was never initiated on any blood thinners. He also states he underwent a stress test and subsequent cardiac catheterization at that time and was told not to have any significant blockages. He presents to the hospital on this occasion with symptoms of approximately 2 week or more duration of chest discomfort. Initially patient started noticing, that when he would walk on his dry weight, even a short distance that he would need to stop because he would develop heaviness in his chest with some radiation to the back and down his arm , shortness of breath, symptoms would subside and patient would again this continue walking. He also states that he has been waking up on occasion at night and difficulty with taking a deep breath. Symptoms of chest discomfort had been getting progressively worse and for this reason he came to the emergency room for further evaluation. EKG on arrival showed atrial fibrillation with a heart rate in the 70s, occasional PVC. Subsequent EKG performed showed atrial fibrillation with controlled ventricular response. Inferior, anterior lateral changes suggesting prior myocardial infarction. Chest x-ray shows a 1.6 cm right lower lung nodule consideration should be given to non-emergent CT for further evaluation. Blood pressure 124/76 heart rate in the 80s, 97.3 temperature, 96% on room air. A blood cell count 6.9, hemoglobin 12.6, platelet count 141. Sodium 138, potassium 4.3, chloride 105, CO2 25, BUN 16, creatinine 1.0. Magnesium 2.0. Troponin 0.086, 0.091, 0.093. At the time of my examination this morning, patient denies any chest discomfort , breathing is stable. 03/17/2018 Patient underwent a cardiac catheterization yesterday by Dr. Bucio, he was not found to have diffuse coronary artery disease with an intermediate lesion in the LAD and proximal and midportion. RCA and circumflex free of any lesions. Maximal medical therapy was advised. Because of his atrial fibrillation, the IV heparin was discontinued today and patient was started on Eliquis 2-1/2 mg one tablet by mouth twice a day, he was educated regarding the importance of watching for any bleeding. Blood pressure 133/78 heart rate in the 80s, temperature 97.8, 96% on room air. Sodium 136, potassium 4.2, BUN 19, creatinine 1.0. Objective - Vital Signs Vital signs: Vital Signs Temp 96.0 F L 03/17/18 12:00 Pulse 70 03/17/18 12:00 Resp 18 03/17/18 12:00 BP 143/85 03/17/18 12:00 Pulse Ox 93 L 03/17/18 12:00 Intake & Output 03/16/18 03/17/18 03/17/18 18:59 06:59 18:59 Intake Total 650 225 600 Balance 650 225 600 Weight 93.4 kg Intake: IV 50 225 Sodium Chloride 0.9% 1, 225 000 ml @ 75 mls/hr IV . [id number] SHAINA Rx#:[id number] Intake, IV Titration 600 Amount Sodium Chloride 0.9% 1, 600 000 ml @ 75 mls/hr IV . [id number] SHAINA Rx#:[id number] Oral 600 Other: Voiding Method Self-Catheterization Self-Catheterization Self-Catheterization # Voids 3 - Exam PHYSICAL EXAMINATION: GENERAL: 87-year-old gentleman in no acute distress at the time of my examination HEENT: Head is atraumatic, normocephalic. Pupils equal, round. Sclera anicteric. Conjunctiva are clear. Mucous membranes of the mouth are moist. Neck is supple. There is no elevated jugular venous pressure. No Carotid bruit is heard. HEART EXAMINATION: Heart S1-S2 irregularly irregular systolic murmur is heard. CHEST EXAMINATION: Lungs are clear to auscultation and precussion. No chest wall tenderness is noted on palpation or with deep breathing. ABDOMEN: Soft, nontender. Bowel sounds are heard. No organomegaly noted. EXTREMITIES: 2+ peripheral pulses with no evidence of peripheral edema and no calf tenderness noted. Right groin soft, no evidence of any hematoma. NEUROLOGIC patient is awake, alert and oriented X3. - Labs CBC & Chem 7: 03/16/18 05:55 03/17/18 05:52 Labs: Abnormal Lab Results - Last 24 Hours (Table) 03/17/18 Range/Units 05:52 Sodium 136 L (137-145) mmol/L Carbon Dioxide 21 L (22-30) mmol/L Assessment and Plan Plan: Assessment and plan #1 symptoms of exertional chest discomfort and shortness of breath, suggestive of possible acute coronary syndrome. Troponins 0.08, 0.09, 0.09. EKG shows atrial fibrillation with controlled ventricular response, ST-T wave changes suggestive of prior inferior anterior lateral TN #2 history of cardiac catheterization 5 or 6 years ago in [place] at which time patient was told not to have any significant obstructive coronary artery disease #3 atrial fibrillation, chronic persistent, not on anticoagulation #4 hypothyroidism Plan Echo with Doppler study was performed which revealed an ejection fraction of 45- 50%. Moderate to severe mitral regurgitation, moderate to severe tricuspid regurgitation. Cardiac catheterization was performed which revealed diffuse coronary artery disease, medical therapy was advised. was started today on Eliquis 2-1/2 mg one tablet by mouth twice a day for anticoagulation for stroke prevention. He may be able to be discharged home from cardiology's perspective, to follow-up in the office post discharge. DNP note has been reviewed, I agree with a documented findings and plan of care. Patient was seen and examined.
[2018-03-18] MEDS ORDERED: ASPIRIN 81 MG PO SCH (09:00)
== END 2018-03-17 13:11 | disposition home or self-care (01) | DRG 281 ==
LOC: EC 16:29 → 6SEL 19:41
PROVIDERS: ADMIT Hospitalist; ATTEND Hospitalist
PROC: B2111ZZ Fluoroscopy of Multiple Coronary Arteries using Low Osmolar Contrast (ICD-10-PCS; 2018-03-16)
PROC: B2151ZZ Fluoroscopy of Left Heart using Low Osmolar Contrast (ICD-10-PCS; 2018-03-16)
PROC: 4A023N7 Measurement of Cardiac Sampling and Pressure, Left Heart, Percutaneous Approach (ICD-10-PCS; principal; 2018-03-16 13:30)
DX: I21.4 Non-ST elevation (NSTEMI) myocardial infarction (principal); I48.1 Persistent atrial fibrillation; E03.9 Hypothyroidism, unspecified; I08.1 Rheumatic disorders of both mitral and tricuspid valves; I25.110 Atherosclerotic heart disease of native coronary artery with unstable angina pectoris; I48.2 Chronic atrial fibrillation; I49.3 Ventricular premature depolarization; M19.90 Unspecified osteoarthritis, unspecified site; Z87.891 Personal history of nicotine dependence; Z96.652 Presence of left artificial knee joint; F03.90 Unspecified dementia, unspecified severity, without behavioral disturbance, psychotic disturbance, mood disturbance, and anxiety; J45.909 Unspecified asthma, uncomplicated; I50.9 Heart failure, unspecified; Z79.890 Hormone replacement therapy
CPT/HCPCS: 36415; 71046; 80048; 80053; 80061; 82550; 82553; 83735; 83880; 84484; 85025; 85610; 85730; 93005; 93306; 93458; 96360; 96361; 99291

== ENCOUNTER 2018-03-20 10:39 | Inpatient (IN) | payer MEDICARE ==
--- NOTE | 2018-03-20 11:04 | ED ---
General Adult HPI - General Chief complaint: Shortness of Breath Stated complaint: fluid retention Time Seen by Provider: 03/20/18 10:40 Source: patient, RN notes reviewed Mode of arrival: wheelchair Limitations: no limitations - History of Present Illness Initial comments: This is a 87-year-old male who presents emergency Department complaining of gaining weight since yesterday. He thinks she gained about 9 pounds. Patient states he recently had a catheterization and he was told everything look good and he was to come in if he had any weight gain. Patient thought he also was a little more short of breath this morning than normal. Patient denies any leg swelling or calf tenderness. Patient states last night he had 2 episodes of chest discomfort which both were relieved immediately with having a large burp. Patient states since then he's had no chest discomfort at all and currently he is chest pain-free. Patient states he was a little bit short of breath coming in. Patient denies any recent fever chills or cough. Patient denies abdominal pain patient denies nausea vomiting diarrhea. - Related Data Home Medications Medication Instructions Recorded Confirmed Levothyroxine Sodium [Synthroid] 75 mcg PO DAILY 03/14/18 03/20/18 Albuterol Inhaler [Ventolin Hfa 1 - 2 puff INHALATION RT-Q6H PRN 03/15/18 Inhaler] Previous Rx's Medication Instructions Recorded Apixaban [Eliquis] 2.5 mg PO BID #60 tablet 03/17/18 Aspirin 81 mg PO DAILY #30 chew 03/17/18 Atorvastatin [Lipitor] 40 mg PO DAILY #30 tab 03/17/18 Furosemide [Lasix] 40 mg PO BID@0900,1600 #60 tab 03/17/18 Metoprolol Tartrate [Lopressor] 25 mg PO BID #60 tab 03/17/18 Nitroglycerin Sl Tabs [Nitrostat] 0.4 mg SUBLINGUAL Q5M PRN #30 tab 03/17/18 Allergies Allergy/AdvReac Type Severity Reaction Status Date / Time No Known Allergies Allergy Verified 03/20/18 11:18 Review of Systems ROS Statement: Those systems with pertinent positive or pertinent negative responses have been documented in the HPI. ROS Other: All systems not noted in ROS Statement are negative. Past Medical History Past Medical History: Atrial Fibrillation, Thyroid Disorder Additional Past Medical History / Comment(s): Pt uses straight catheterization , [facility] HE[employer] [facility]VES History of Any Multi-Drug Resistant Organisms: None Reported Past Surgical History: Hernia Repair, Orthopedic Surgery Additional Past Surgical History / Comment(s): left knee replacement, back surgery, prostste surgery Past Psychological History: No Psychological Hx Reported Smoking Status: Former smoker Past Alcohol Use History: None Reported Past Drug Use History: None Reported General Exam - General Exam Comments Initial Comments: GENERAL: Patient is well-developed and well-nourished. Patient is nontoxic and well- hydrated and is in no acute distress. ENT: Neck is soft and supple. No significant lymphadenopathy is noted. Oropharynx is clear. Moist mucous membranes. Neck has full range of motion without eliciting any pain. EYES: The sclera were anicteric and conjunctiva were pink and moist. Extraocular movements were intact and pupils were equal round and reactive to light. Eyelids were unremarkable. PULMONARY: Unlabored respirations. Good breath sounds bilaterally. No audible rales rhonchi or wheezing was noted. CARDIOVASCULAR: There is a regular rate and rhythm without any murmurs gallops or rubs. ABDOMEN: Soft and nontender with normal bowel sounds. No palpable organomegaly was noted. There is no palpable pulsatile mass. SKIN: Skin is clear with no lesions or rashes and otherwise unremarkable. NEUROLOGIC: Patient is alert and oriented x3. Cranial nerves II through XII are grossly intact. Motor and sensory are also intact. Normal speech, volume and content. Symmetrical smile. MUSCULOSKELETAL: Normal extremities with adequate strength and full range of motion. No lower extremity swelling or edema. No calf tenderness. LYMPHATICS: No significant lymphadenopathy is noted PSYCHIATRIC: Normal psychiatric evaluation. Limitations: no limitations Course Vital Signs 03/20/18 10:50 Temperature 98.3 F Pulse Rate 67 Respiratory 18 Rate Blood Pressure 112/63 O2 Sat by Pulse 94 L Oximetry Medical Decision Making - Medical Decision Making EKG shows atrial fibrillation at a rate of 66 bpm QRS is 94 Q-T intervals 458 QTC is 480. Patient's EKG shows no ST segment elevation or depression or T wave abnormalities are noted. Chest x-ray shows bilateral pleural effusions which are new consistent with pulmonary edema. I started the patient Lasix and Nitropaste because of the weight gain shortness of breath and x-ray findings. I spoke with Dr. Zapien he agreed to admit the patient admitted the patient wrote admitting orders. - Lab Data Result diagrams: 03/20/18 11:04 03/20/18 11:04 Lab Results 03/20/18 03/20/18 03/20/18 Range/Units 11:04 11:04 11:04 WBC 6.5 (3.8-10.6) k/uL RBC 4.42 (4.30-5.90) m/uL Hgb 13.1 (13.0-17.5) gm/dL Hct 39.6 (39.0-53.0) % MCV 89.5 (80.0-100.0) fL MCH 29.7 (25.0-35.0) pg MCHC 33.1 (31.0-37.0) g/dL RDW 14.0 (11.5-15.5) % Plt Count 182 (150-450) k/uL Neutrophils % 76 % Lymphocytes % 13 % Monocytes % 7 % Eosinophils % 3 % Basophils % 0 % Neutrophils # 4.9 (1.3-7.7) k/uL Lymphocytes # 0.8 L (1.0-4.8) k/uL Monocytes # 0.5 (0-1.0) k/uL Eosinophils # 0.2 (0-0.7) k/uL Basophils # 0.0 (0-0.2) k/uL PT (9.0-12.0) sec INR (<1.2) APTT (22.0-30.0) sec Sodium 137 (137-145) mmol/L Potassium 3.4 L (3.5-5.1) mmol/L Chloride 96 L (98-107) mmol/L Carbon Dioxide 29 (22-30) mmol/L Anion Gap 12 mmol/L BUN 16 (9-20) mg/dL Creatinine 0.97 (0.66-1.25) mg/dL Est GFR (CKD-EPI)AfAm 82 (>60 ml/min/1.73 sqM) Est GFR (CKD-EPI)NonAf 71 (>60 ml/min/1.73 sqM) Glucose 123 H (74-99) mg/dL Calcium 9.3 (8.4-10.2) mg/dL Magnesium 1.7 (1.6-2.3) mg/dL Total Bilirubin 1.5 H (0.2-1.3) mg/dL AST 54 (17-59) U/L ALT 48 (21-72) U/L Alkaline Phosphatase 87 (38-126) U/L Total Creatine Kinase 193 H (55-170) U/L CK-MB (CK-2) 3.6 H* (0.0-2.4) ng/mL CK-MB (CK-2) Rel Index 1.9 Troponin I 0.118 H* (0.000-0.034) ng/mL NT-Pro-B Natriuret Pep pg/mL Total Protein 6.6 (6.3-8.2) g/dL Albumin 3.8 (3.5-5.0) g/dL 03/20/18 03/20/18 Range/Units 11:04 11:04 WBC (3.8-10.6) k/uL RBC (4.30-5.90) m/uL Hgb (13.0-17.5) gm/dL Hct (39.0-53.0) % MCV (80.0-100.0) fL MCH (25.0-35.0) pg MCHC (31.0-37.0) g/dL RDW (11.5-15.5) % Plt Count (150-450) k/uL Neutrophils % % Lymphocytes % % Monocytes % % Eosinophils % % Basophils % % Neutrophils # (1.3-7.7) k/uL Lymphocytes # (1.0-4.8) k/uL Monocytes # (0-1.0) k/uL Eosinophils # (0-0.7) k/uL Basophils # (0-0.2) k/uL PT 11.9 (9.0-12.0) sec INR 1.3 H (<1.2) APTT 26.6 (22.0-30.0) sec Sodium (137-145) mmol/L Potassium (3.5-5.1) mmol/L Chloride (98-107) mmol/L Carbon Dioxide (22-30) mmol/L Anion Gap mmol/L BUN (9-20) mg/dL Creatinine (0.66-1.25) mg/dL Est GFR (CKD-EPI)AfAm (>60 ml/min/1.73 sqM) Est GFR (CKD-EPI)NonAf (>60 ml/min/1.73 sqM) Glucose (74-99) mg/dL Calcium (8.4-10.2) mg/dL Magnesium (1.6-2.3) mg/dL Total Bilirubin (0.2-1.3) mg/dL AST (17-59) U/L ALT (21-72) U/L Alkaline Phosphatase (38-126) U/L Total Creatine Kinase (55-170) U/L CK-MB (CK-2) (0.0-2.4) ng/mL CK-MB (CK-2) Rel Index Troponin I (0.000-0.034) ng/mL NT-Pro-B Natriuret Pep 6650 pg/mL Total Protein (6.3-8.2) g/dL Albumin (3.5-5.0) g/dL Disposition Clinical Impression: Acute pulmonary edema Disposition: ADMITTED IP TO THIS HOSP Referrals: Angie Palomares MD [Primary Care Provider] - 1-2 days Time of Disposition: 12:12
[2018-03-20 11:16] LABS: Basophils % (A) 0 %; Eosinophils # (A) 0.2 k/uL (0-0.7); Eosinophils % (A) 3 %; HCT 39.6 % (39.0-53.0); HGB 13.1 gm/dL (13.0-17.5); Lymphocytes # (A) 0.8 k/uL (1.0-4.8); Lymphocytes % (A) 13 %; MCH 29.7 pg (25.0-35.0); MCHC 33.1 g/dL (31.0-37.0); MCV 89.5 fL (80.0-100.0); Mean Platelet Volume 7.6; Monocytes # (A) 0.5 k/uL (0-1.0); Monocytes % (A) 7 %; Neutrophils # (A) 4.9 k/uL (1.3-7.7); Neutrophils % (A) 76 %; Platelet Count 182 k/uL (150-450); RBC 4.42 m/uL (4.30-5.90); WBC 6.5 k/uL (3.8-10.6)
[2018-03-20 11:25] LABS: Albumin 3.8 g/dL (3.5-5.0); Calcium 9.3 mg/dL (8.4-10.2); Magnesium 1.7 mg/dL (1.6-2.3); Potassium 3.4 mmol/L (3.5-5.1); Total Bilirubin 1.5 mg/dL (0.2-1.3); Total Protein 6.6 g/dL (6.3-8.2)
[2018-03-20 11:26] LABS: INR 1.3 (<1.2); Partial Thromboplastin Time 26.6 sec (22.0-30.0); Prothrombin Time 11.9 sec (9.0-12.0)
--- NOTE | 2018-03-20 11:38 | XR ---
EXAMINATION TYPE: XR chest 2V DATE OF EXAM: 03/20/2018 COMPARISON: 03/14/2018 HISTORY: 87-year-old male difficulty breathing, fluid retention today TECHNIQUE: AP and lateral views FINDINGS: Heart mildly enlarged. Mild elongation thoracic aorta. Mild diffuse interstitial prominence. New smal l right pleural effusions. Redemonstrated 1.8 cm nodule peripheral right base. No consolidation. IMPRESSION: Cardiomegaly, interstitial prominence, and new small pleural effusions. Correlate for mild CHF. 1.8 cm pulmonary nodule at the right base redemonstrated. Correlate with any available outside priors to assess stability. Otherwise, nonemergent follow-up contrast enhanced CT is recommended.
[2018-03-20 11:52] LABS: Creatine Kinase MB 3.6 ng/mL (0.0-2.4)
[2018-03-20 11:53] LABS: Troponin I 0.118 ng/mL (0.000-0.034)
[2018-03-20] MEDS ORDERED: NITROGLYCERIN OINT 1 INCH/GM PACKET TOPICAL STA (12:02)
[2018-03-20] MEDS ORDERED: FUROSEMIDE 10 MG/ML 4 ML VIAL IV STA (12:02)
[2018-03-20] MEDS: FUROSEMIDE 10 MG/ML 4 ML VIAL IV SCH ×2 (13:03→23:16)
[2018-03-20] MEDS: NITROGLYCERIN OINT 1 INCH/GM PACKET TOPICAL SCH ×3 (13:03→21:02)
[2018-03-20] MEDS ORDERED: ALBUTEROL NEBULIZED 2.5 MG/3 ML INHALATION PRN (14:11)
[2018-03-20] MEDS ORDERED: TEMAZEPAM 15 MG CAP PO PRN (14:12)
[2018-03-20] MEDS ORDERED: ACETAMINOPHEN TAB 500 MG TAB PO PRN (14:12)
[2018-03-20] MEDS ORDERED: ALPRAZolam 0.25 MG TAB PO PRN (14:12)
--- NOTE | 2018-03-20 15:48 | HP ---
HISTORY AND PHYSICAL DATE OF SERVICE: 03/20/2018 CHIEF COMPLAINTS: Chief complaints are shortness of breath, acute pulmonary edema and chest pain. HISTORY OF PRESENT ILLNESS: This 87-year-old gentleman with a past medical history of atrial fibrillation, history of hypothyroidism, history of straight catheterization being followed by Dr. Palomares in the outpatient setting was in the emergency department with fluid again yesterday. The patient apparently gained 9 pounds of weight loss. The patient also had shortness of breath and some paroxysmal nocturnal dyspnea. The patient also had chest pain, was unable to sleep last night. The patient came to [facility] and admitted for further evaluation and treatment. Burping was noted last night. On admission, the BNP was noted to be 6650, troponin 0.118 and chest x-ray showed CHF and EKG showed a ST-T changes and atrial fibrillation also. Patient admitted for further evaluation and treatment. There is no history of fever or rigors. No history of headache, loss of consciousness, seizures. The recent 2D echo showed ejection fraction about 45% to 50% and moderate to severe mitral regurgitation and moderate to severe tricuspid regurgitation also. The recent cardiac catheterization showed diffuse noncritical coronary artery disease. PAST MEDICAL HISTORY: History of atrial fibrillation, hypothyroidism, history of straight catheterization, history of leaky heart valve. MEDICATIONS: Medications are: 1. Nitro 0.4 sublingual p.r.n. 2. Lopressor 25 mg b.i.d. 3. Synthroid 75 mcg p.o. daily. 4. Lasix 40 mg p.o. b.i.d. 5. Lipitor 40 mg p.o. daily. 6. Aspirin 81 mg daily. 7. Eliquis 2.5 mg b.i.d. 8. Ventolin HFA 1 to 2 puffs q.6 p.r.n. ALLERGIES: Allergies are none. FAMILY HISTORY: No history of heart disease or strokes in the family. SOCIAL HISTORY: Previous smoking. No history of alcohol intake. REVIEW OF SYSTEMS: ENT: Diminished hearing and diminished vision. CARDIOVASCULAR SYSTEM: As mentioned earlier. RESPIRATORY SYSTEM: As mentioned earlier. GI: No nausea. : No dysuria. NERVOUS SYSTEM: No numbness or weakness. ALLERGY/IMMUNOLOGY No asthma or hayfever. MUSCULOSKELETAL: As mentioned earlier. HEMATOLOGY/ONCOLOGY: No history of anemia. ENDOCRINE: No history of diabetes. Hypothyroidism. CONSTITUTIONAL: As mentioned earlier. DERMATOLOGY: Negative. RHEUMATOLOGY: Negative. PSYCHIATRY: As mentioned earlier. PHYSICAL EXAMINATION: On physical examination, the patient is alert and oriented x3. Pulse is 69, blood pressure 136/74, respiration 16, temperature 98.1, pulse ox 93% on room air. HEENT: Conjunctivae normal. Oral mucosa moist. NECK; . No carotid bruit. No lymph node enlargement. Jugular venous distention. CARDIOVASCULAR: S1, S2 muffled. Ejection systolic murmur present. RESPIRATORY: Breath sounds diminished at the bases. Bilateral scattered rhonchi and crackles. Respiratory wheezing also present. ABDOMEN: Soft, nontender. No mass palpable. LEGS: No edema, no swelling. NERVOUS SYSTEM: Higher functions as mentioned. Moves on 4 limbs. No focal motor or sensory deficits. LYMPHATICS: No lymphadenopathy of the neck, axillae or groin. SKIN: No ulcer, rash or bleeding. LABS: CBC within normal limits. INR 1.3. Sodium 137, potassium 3.4. Glucose 123. Total bilirubin 1.5. Creatine kinase 193 and troponin 0.118. ASSESSMENT: 1. Shortness of breath possible congestive heart failure acute exacerbation. Ejection fraction unknown. 2. Troponin 0.118. Possible acute cbl-VT-xieemat elevation myocardial infarction. 3. Atrial fibrillation with controlled ventricular rate. 4. Hypokalemia. 5. Increased bilirubin. 6. Hypothyroidism. 7. History of straight catheterization. 8. Remote history of nicotine dependence. 9. On Eliquis. 10.Congestive heart failure with acute on chronic systolic dysfunction, ejection fraction 45% to 50%. 11.Moderate to severe mitral and tricuspid regurgitations. RECOMMENDATIONS AND DISCUSSION: This 87-year-old gentleman presented with multiple complex medical issues. At this time, we will monitor the patient closely. Continue the current medications. Continue symptomatic treatment. Continue with antiplatelet agents. Otherwise continue the rest of medications, IV Lasix. Monitor fluid and electrolyte balance closely. Fluid 200 mL per 24 hours. A 2D echo with Doppler. Guarded prognosis because of multiple complex medical issues. Further recommendations to follow. A copy of dictation forwarded to Dr. Palomares who is the primary physician. MMODL / IJN: [id number] / MTDD
[2018-03-20 16:55] LABS: Appearance,Urine Clear (Clear); Bilirubin,Urine Negative (Negative); Blood,Urine Negative (Negative); Color,Urine Colorless; Glucose,Urine (UA) Negative (Negative); Ketones,Urine Negative (Negative); Leukocyte Esterase,Urine Negative (Negative); Nitrite,Urine Negative (Negative); Protein,Urine Negative (Negative); Specific Gravity,Urine 1.004 (1.001-1.035); Urobilinogen,Urine <2.0 mg/dL (<2.0)
[2018-03-20] MEDS: POTASSIUM CHLORIDE ER 20 MEQ TAB.ER PO SCH ×3 (21:01→23:16)
[2018-03-20] MEDS: APIXABAN 2.5 MG TABLET PO SCH (21:02)
[2018-03-20] MEDS: METOPROLOL TARTRATE 25 MG TAB PO SCH (21:02)
[2018-03-20] MEDS ORDERED: Potassium Replacement Protocol 1 EACH MISC MISCELLANE PRN (21:10)
[2018-03-21] MEDS: LEVOTHYROXINE 75 MCG TAB PO SCH (06:02)
[2018-03-21] MEDS: PANTOPRAZOLE 40 MG TABLET PO SCH (06:02)
[2018-03-21 06:46] LABS: Basophils # (A) 0.1 k/uL (0-0.2); Basophils % (A) 1 %; Eosinophils # (A) 0.4 k/uL (0-0.7); Eosinophils % (A) 6 %; HCT 38.8 % (39.0-53.0); HGB 12.4 gm/dL (13.0-17.5); Lymphocytes # (A) 1.1 k/uL (1.0-4.8); Lymphocytes % (A) 19 %; MCH 29.1 pg (25.0-35.0); MCV 90.9 fL (80.0-100.0); Mean Platelet Volume 6.8; Monocytes # (A) 0.5 k/uL (0-1.0); Monocytes % (A) 8 %; Neutrophils # (A) 3.9 k/uL (1.3-7.7); Neutrophils % (A) 64 %; Platelet Count 190 k/uL (150-450); RBC 4.27 m/uL (4.30-5.90); RDW 14.4 % (11.5-15.5); WBC 6.1 k/uL (3.8-10.6)
[2018-03-21 07:02] LABS: Potassium 3.6 mmol/L (3.5-5.1)
[2018-03-21] MEDS: NITROGLYCERIN OINT 1 INCH/GM PACKET TOPICAL SCH ×4 (07:49→20:28)
[2018-03-21] MEDS: ATORVASTATIN 40 MG TAB PO SCH (07:49)
[2018-03-21] MEDS: METOPROLOL TARTRATE 25 MG TAB PO SCH ×2 (07:50→20:27)
[2018-03-21] MEDS: APIXABAN 2.5 MG TABLET PO SCH ×2 (07:50→20:27)
[2018-03-21] MEDS: POTASSIUM CHLORIDE ER 20 MEQ TAB.ER PO SCH ×2 (07:50→20:28)
[2018-03-21] MEDS: ASPIRIN 325 MG TAB PO SCH (07:50)
--- NOTE | 2018-03-21 10:59 | P.CRDCN ---
History of Present Illness Consult date: 03/21/18 Requesting physician: Breonna Zapien Reason for Consult (text): Congestive heart failure, with systolic dysfunction, shortness of breath, elevated troponins Consult reason: atrial fibrillation, congestive heart failure Chief complaint: Shortness of breath, weight gain, chest discomfort History of present illness: This is a 87-year-old white male patient, who usually follows with Dr. Bucio for his history of congestive heart failure, with reduced left ventricular ejection fraction, chronic atrial fibrillation, presented to the emergency department on 03/20/2018 at 1039 with symptoms of shortness of breath , weight gain of 9.4 pounds in 1 day, few episodes of chest tightness that were relieved with her pain, and sleeping in the recliner, instead of lying down in bed. Patient has history of chronic atrial fibrillation currently on chronic anticoagulation in the form of Eliquis. Patient has valvular heart disease, moderate to severe mitral regurgitation noted on his last echo from 03/15/2018. It also showed reduced left ventricular systolic function with an EF between 45-50%, mild pulmonary hypertension with right ventricular systolic pressure of 43 mmHg. Patient underwent cardiac catheterization on 03/08/2018 during his last hospitalization for non-ST elevated VT, which showed diffuse coronary artery disease with about 40-50% stenosis in the left anterior descending coronary artery in the proximal segment and a 50-60% stenosis in the distal segment, no critical lesions were noted. The left circumflex, and right coronary artery were free of any significant occlusive disease. Chest x-ray showed cardiomegaly, interstitial prominence, and a new small pleural effusions. Lab work did not show any leukocytosis, hemoglobin of 13.1, and 0.3 , potassium is 3.4, chloride is 96, renal profile was within normal limits, troponin was 0.118, and proBNP was elevated at 6650. EKG showed atrial fibrillation with ventricular rate of 66 BPM, with evidence of anteroseptal infarct, age undetermined. Patient states his episodes of chest tightness lasted 2-3 minutes, not precipitated by any exertion, and were relieved with burping, and sitting upright. No peripheral swelling, patient is on maintenance dose of Lasix of 40 mg twice daily at home. During my evaluation patient seen resting in bed, in no acute distress, denies any shortness of breath, denies any chest pain, denies any palpitations, lightheadedness, or dizziness. Review of Systems All systems: negative Constitutional: Denies chills, Denies fever Eyes: denies blurred vision, denies pain Ears, nose, mouth and throat: Denies headache, Denies sore throat Cardiovascular: Denies chest pain, Denies shortness of breath Respiratory: Denies cough Gastrointestinal: Denies abdominal pain, Denies diarrhea, Denies nausea, Denies vomiting Musculoskeletal: Denies myalgias Integumentary: Denies pruritus, Denies rash Neurological: Denies numbness, Denies weakness Psychiatric: Denies anxiety, Denies depression Endocrine: Denies fatigue, Denies weight change Past Medical History Past Medical History: Atrial Fibrillation, Thyroid Disorder Additional Past Medical History / Comment(s): Pt uses straight catheterization , [facility] History of Any Multi-Drug Resistant Organisms: None Reported Past Surgical History: Heart Catheterization, Hernia Repair, Orthopedic Surgery Additional Past Surgical History / Comment(s): left knee replacement, back surgery, prostste surgery Past Psychological History: No Psychological Hx Reported Smoking Status: Former smoker Past Alcohol Use History: None Reported Past Drug Use History: None Reported Medications and Allergies Home Medications Medication Instructions Recorded Confirmed Type Levothyroxine Sodium [Synthroid] 75 mcg PO DAILY 03/14/18 03/20/18 History Albuterol Inhaler [Ventolin Hfa 1 - 2 puff INHALATION RT-Q6H PRN 03/15/18 History Inhaler] Apixaban [Eliquis] 2.5 mg PO BID #60 tablet 03/17/18 03/20/18 Rx Aspirin 81 mg PO DAILY #30 chew 03/17/18 03/20/18 Rx Atorvastatin [Lipitor] 40 mg PO DAILY #30 tab 03/17/18 03/20/18 Rx Furosemide [Lasix] 40 mg PO BID@0900,1600 #60 tab 03/17/18 03/20/18 Rx Metoprolol Tartrate [Lopressor] 25 mg PO BID #60 tab 03/17/18 03/20/18 Rx Nitroglycerin Sl Tabs [Nitrostat] 0.4 mg SUBLINGUAL Q5M PRN #30 tab 03/17/1808/06 Rx Allergies Allergy/AdvReac Type Severity Reaction Status Date / Time No Known Allergies Allergy Verified 03/20/18 11:18 Physical Exam Vitals: Vital Signs Temp Pulse Pulse Resp BP BP Pulse Ox 03/21/18 08:00 97.4 F L 77 18 141/70 94 L 03/21/18 04:00 98.4 F 70 16 102/61 95 03/20/18 23:49 98.4 F 68 16 100/56 94 L 03/20/18 20:00 98.4 F 62 16 119/71 95 03/20/18 16:00 65 18 110/56 96 03/20/18 13:13 98.1 F 69 16 136/74 93 L 03/20/18 13:01 97.8 F 77 18 151/80 96 03/20/18 12:22 64 18 115/69 92 L 03/20/18 10:50 98.3 F 67 18 112/63 94 L Intake and Output 03/20/18 03/21/18 03/21/18 22:59 06:59 14:59 Intake Total 240 240 Balance 240 240 Intake: Oral 240 240 Other: Voiding Method Self-Catheterization Self-Catheterization Self-Catheterization # Voids 1 1 Weight 89.1 kg GENERAL EXAM: Alert, pleasant, 87-year-old white male comfortable in no apparent distress. HEAD: Normocephalic/atraumatic. EYES: Normal reaction of pupils, equal size. Conjunctiva pink, sclera white. NOSE: Clear with pink turbinates. THROAT: No erythema or exudates. NECK: No masses, no JVD, no thyroid enlargement, no adenopathy. CHEST: No chest wall deformity. Symmetrical expansion. LUNGS: Equal air entry with crackles at the left lower base, no wheeze, rhonchi or dullness. CVS: Irregular rate and rhythm, normal S1 and S2, no gallops, systolic murmur noted at the apex ABDOMEN: Soft, nontender. No hepatosplenomegaly, normal bowel sounds, no guarding or rigidity. EXTREMITIES: No clubbing, no edema, no cyanosis, 2+ pulses and upper and lower extremities. MUSCULOSKELETAL: Muscle strength and tone normal. SPINE: No scoliosis or deformity SKIN: No rashes CENTRAL NERVOUS SYSTEM: Alert and oriented -3. No focal deficits, tone is normal in all 4 extremities. PSYCHIATRIC: Alert and oriented -3. Appropriate affect. Intact judgment and insight. Results 03/21/18 06:05 03/21/18 06:05 Cardiac Enzymes 03/20/18 03/20/18 Range/Units 11:04 11:04 AST 54 (17-59) U/L CK-MB (CK-2) 3.6 H* (0.0-2.4) ng/mL Troponin I 0.118 H* (0.000-0.034) ng/mL Coagulation 03/20/18 Range/Units 11:04 PT 11.9 (9.0-12.0) sec APTT 26.6 (22.0-30.0) sec CBC 03/20/18 03/21/18 Range/Units 11:04 06:05 WBC 6.5 6.1 (3.8-10.6) k/uL RBC 4.42 4.27 L (4.30-5.90) m/uL Hgb 13.1 12.4 L (13.0-17.5) gm/dL Hct 39.6 38.8 L (39.0-53.0) % Plt Count 182 190 (150-450) k/uL Comprehensive Metabolic Panel 03/20/18 03/21/18 Range/Units 11:04 06:05 Sodium 137 137 (137-145) mmol/L Potassium 3.4 L 3.6 (3.5-5.1) mmol/L Chloride 96 L 96 L (98-107) mmol/L Carbon Dioxide 29 33 H (22-30) mmol/L BUN 16 15 (9-20) mg/dL Creatinine 0.97 0.99 (0.66-1.25) mg/dL Glucose 123 H 92 (74-99) mg/dL Calcium 9.3 9.0 (8.4-10.2) mg/dL AST 54 (17-59) U/L ALT 48 (21-72) U/L Alkaline Phosphatase 87 (38-126) U/L Total Protein 6.6 (6.3-8.2) g/dL Albumin 3.8 (3.5-5.0) g/dL Current Medications Generic Name Dose Route Start Last Admin Trade Name Freq PRN Reason Stop Dose Admin Acetaminophen 500 mg 03/20/18 14:12 03/20/18 21:54 Tylenol Tab PO 500 mg Q6HR PRN Administration Fever and/ or Pain Albuterol Sulfate 2.5 mg 03/20/18 14:11 Ventolin Nebulized INHALATION RT-Q6H PRN Shortness Of Breath Alprazolam 0.25 mg 03/20/18 14:12 Xanax PO TID PRN Anxiety Apixaban 2.5 mg 03/20/18 21:00 03/21/18 07:50 Eliquis PO 2.5 mg BID SHAINA Administration Aspirin 325 mg 03/21/18 12:13 03/21/18 07:50 Aspirin PO 325 mg DAILY SHAINA Administration Atorvastatin Calcium 40 mg 03/21/18 09:00 03/21/18 07:49 Lipitor PO 40 mg DAILY SHAINA Administration Furosemide 40 mg 03/20/18 12:15 03/20/18 23:16 Lasix IV 40 mg Q12H SHAINA Administration Levothyroxine Sodium 75 mcg 03/21/18 06:30 03/21/18 06:02 Synthroid PO 75 mcg DAILY@0630 SHAINA Administration Metoprolol Tartrate 25 mg 03/20/18 21:00 03/21/18 07:50 Lopressor PO 25 mg BID SHAINA Administration Miscellaneous Information 1 each 03/20/18 21:10 Potassium Per Protocol MISCELLANE DAILY PRN Per Protocol Protocol Nitroglycerin 1 inch 03/20/18 13:00 03/21/18 07:49 Nitro-Bid Oint TOPICAL Not Given QID [facility] Pantoprazole Sodium 40 mg 03/21/18 07:30 03/21/18 06:02 Protonix PO 40 mg AC-[id number] SHANIA Administration Potassium Chloride 20 meq 03/20/18 21:00 03/21/18 07:50 K-Dur 20 PO 20 meq BID SHAINA Administration Temazepam 15 mg 03/20/18 14:12 Restoril PO HS PRN Insomnia Intake and Output 03/20/18 03/21/18 03/21/18 22:59 06:59 14:59 Intake Total 240 240 Balance 240 240 Intake: Oral 240 240 Other: Voiding Method Self-Catheterization Self-Catheterization Self-Catheterization # Voids 1 1 Weight 89.1 kg 03/21/18 06:05 03/21/18 06:05 - Imaging and Cardiology Echo: report reviewed Cardiac cath: report reviewed - EKG Interpretation EKG: interpreted by STEPHON, no acute changes EKG shows: atrial fibrillation Assessment and Plan Plan: Assessment: #1. Shortness of breath, related to acute exacerbation of congestive heart failure, with systolic dysfunction, based on a previous echocardiogram from #2. Elevated troponin #3. Chronic atrial fibrillation with controlled ventricular rate #4. History of valvular heart disease, with moderate to severe mitral regurgitation #5. Hypokalemia #6. Chronic congestive heart failure with systolic dysfunction #7. Hypothyroidism Plan: Continue IV diuretics at 40 mg every 12 hours, continue Eliquis, home dose metoprolol. Correct hypokalemia. Will add losartan 25 mg daily. Continue to follow. I performed a history & physical examination of the patient and discussed their management with my nurse practitioner, Cait Carlson. I reviewed the nurse practitioner's note and agree with the documented findings and plan of care. Lung sounds are positive for scattered rales at the left posterior base, heart sounds are irregularly irregular. The findings and the impression was discussed with the patient. I attest to the documentation by the nurse practitioner. Time with Patient: Greater than 30
[2018-03-21] MEDS: FUROSEMIDE 10 MG/ML 4 ML VIAL IV SCH ×2 (11:28→23:45)
[2018-03-21] MEDS: SPIRONOLACTONE 25 MG TAB PO SCH (11:29)
[2018-03-21 11:53] VITALS: BMI 28.1
[2018-03-21] MEDS: LOSARTAN 25 MG TAB PO SCH (12:06)
--- NOTE | 2018-03-21 18:22 | PN ---
PROGRESS NOTE DATE OF SERVICE: 03/21/2018 This 87-year-old gentleman who was admitted for shortness of breath with CHF acute exacerbation is being closely monitored. At this time Cardiology is following the patient closely. Patient is feeling slightly better. Patient is on diuretics. PHYSICAL EXAM: Alert and oriented x3. The pulse is 72, blood pressure 118/66, respiration 18, temperature 97.4, pulse ox 94% on room air. HEENT: Conjunctivae normal. Oral mucosa moist. Neck is no jugular venous distention. No carotid bruit. No lymph node enlargement. CARDIOVASCULAR: S1, S2. RESPIRATORY: Breath sounds diminished in the bases. A few scattered rhonchi and crackles. ABDOMEN: Soft, nontender. LEGS: No edema, no swelling. NERVOUS SYSTEM: No focal deficits. LABS: WBC 6, hemoglobin 12.4. D-dimer is 1.66. ASSESSMENT: 1. Shortness of breath with possible congestive heart failure acute exacerbation. ac on chronic systolic dysfucntion ef 40-45%. 2. Troponin 0.118. Possible acute non ST elevation myocardial infarction. 3. Atrial fibrillation with a controlled ventricular rate. 4. Hypokalemia. 5. Increased bilirubin. 6. Hypothyroidism. 7. History of straight catheterization. 8. Remote history of nicotine dependence. 9. On Eliquis. 10.Congestive heart failure with chronic systolic dysfunction ejection fraction 40- 45%. 11.Moderate to severe mitral and tricuspid regurgitation. RECOMMENDATIONS AND DISCUSSION: I recommend to continue current management, continue monitoring and symptomatic treatment. Continue with diuretics at this time. Otherwise, closely monitored. Closely follow with Cardiology. Guarded prognosis. Further recommendations to follow. MMBAILEEL / DAYANARAN: [id number] / MTDD
[2018-03-22] MEDS: PANTOPRAZOLE 40 MG TABLET PO SCH (06:21)
[2018-03-22] MEDS: LEVOTHYROXINE 75 MCG TAB PO SCH (06:21)
[2018-03-22 06:37] LABS: Basophils # (A) 0.1 k/uL (0-0.2); Basophils % (A) 1 %; Eosinophils # (A) 0.5 k/uL (0-0.7); Eosinophils % (A) 7 %; HCT 41.8 % (39.0-53.0); HGB 13.3 gm/dL (13.0-17.5); Lymphocytes # (A) 1.2 k/uL (1.0-4.8); Lymphocytes % (A) 19 %; MCH 28.9 pg (25.0-35.0); MCHC 31.7 g/dL (31.0-37.0); MCV 91.1 fL (80.0-100.0); Mean Platelet Volume 6.8; Monocytes # (A) 0.5 k/uL (0-1.0); Monocytes % (A) 7 %; Neutrophils # (A) 3.9 k/uL (1.3-7.7); Neutrophils % (A) 63 %; Platelet Count 196 k/uL (150-450); RBC 4.59 m/uL (4.30-5.90); RDW 14.3 % (11.5-15.5); WBC 6.3 k/uL (3.8-10.6)
[2018-03-22 06:57] LABS: Calcium 9.4 mg/dL (8.4-10.2)
--- NOTE | 2018-03-22 07:39 | XR ---
EXAMINATION TYPE: XR chest 1V portable DATE OF EXAM: 03/22/2018 Comparison: 03/20/2018 Clinical History: 87-year-old female CHF Findings: The heart remains mildly enlarged. Trace effusions seen on prior lateral view not seen on the frontal view. Redemonstrated 1.8 cm right basilar pulmonary nodule. Upper mid lungs remain clear. Impression: Cardiomegaly and redemonstrated a 1.8 cm right basilar pulmonary nodule. Nonemergent follow-up CT to assess versus comparison to outside priors. No acute change.
[2018-03-22] MEDS: APIXABAN 2.5 MG TABLET PO SCH ×2 (08:39→21:55)
[2018-03-22] MEDS: SPIRONOLACTONE 25 MG TAB PO SCH (08:39)
[2018-03-22] MEDS: ASPIRIN 325 MG TAB PO SCH (08:39)
[2018-03-22] MEDS: METOPROLOL TARTRATE 25 MG TAB PO SCH ×2 (08:39→21:55)
[2018-03-22] MEDS: POTASSIUM CHLORIDE ER 20 MEQ TAB.ER PO SCH ×2 (08:39→21:55)
[2018-03-22] MEDS: LOSARTAN 25 MG TAB PO SCH (08:39)
[2018-03-22] MEDS: NITROGLYCERIN OINT 1 INCH/GM PACKET TOPICAL SCH ×4 (08:40→21:59)
[2018-03-22] MEDS: ATORVASTATIN 40 MG TAB PO SCH (08:41)
[2018-03-22] MEDS: FUROSEMIDE 10 MG/ML 4 ML VIAL IV SCH ×2 (13:41→21:55)
--- NOTE | 2018-03-22 17:27 | CT ---
EXAMINATION TYPE: CT chest wo con DATE OF EXAM: 03/22/2018 COMPARISON: None HISTORY: Right pulmonary nodule. CT DLP: 393.9 mGycm. Automated Exposure Control for Dose Reduction was Utilized. TECHNIQUE: CT scan of the thorax is performed without IV contrast. FINDINGS: There is patchy linear density at the lung bases. There is no pleural effusion. There is small perica rdial effusion. Heart is enlarged. There is no mediastinal adenopathy. There are a few paratracheal l ymph nodes that measure less than 1 cm. There are no hilar masses. There is spurring in the thoracic spine. There is 1.3 cm calcified nodule in the right middle lobe. There is partly calcified 8 mm nodu le anterior right middle lobe. There is 8 mm calcified granuloma at the right pulmonary hilum. IMPRESSION: Cardiomegaly with small pericardial effusion. Old granulomatous disease. No suspicious pu lmonary nodules seen. Minimal scarring or subsegmental atelectasis at the lung bases.
[2018-03-23 05:33] VITALS: TEMP 97.4
--- NOTE | 2018-03-23 05:38 | PN ---
PROGRESS NOTE DATE OF SERVICE: 03/22/2018 This 87-year-old gentleman admitted with CHF acute exacerbation is improving significantly. IV Lasix has been switched to p.o. Lasix drip by Cardiology. A 1.8 cm right basal pulmonary nodule has been noted on the chest x-ray. No chest pain or palpitation. No fever. PHYSICAL EXAMINATION: On exam, alert and oriented x3. Pulse is 82, blood pressure 111/72, respiration 18, temperature 97.5, pulse ox 97% on room air. HEENT: Conjunctivae normal. Oral mucosa moist. Neck is no jugular venous distention. No carotid bruit. No lymph node enlargement. CARDIOVASCULAR: S1 and S2 muffled. RESPIRATORY: Breath sounds diminished at the bases. No rhonchi, no crackles. ABDOMEN: Soft, nontender. LEGS: No edema. NERVOUS SYSTEM: No focal deficits. LABS: CBC within normal limits, otherwise CO2 is 33. ASSESSMENT: 1. Shortness of breath with possible congestive heart failure acute exacerbation with acute on chronic systolic dysfunction, ejection fraction 40% to 45%. 2. Troponin 0.118. Possible acute non ST-segment elevation myocardial infarction. 3. Atrial fibrillation with controlled ventricular rate. 4. Possible 1.8 cm right basilar pulmonary nodule. 5. Hypokalemia. 6. Increased bilirubin. 7. Hypothyroidism. 8. History of straight catheterization. 9. Remote history of nicotine dependence. 10.On Eliquis. 11.Moderate to severe mitral and tricuspid regurgitation. RECOMMENDATION AND DISCUSSION: Recommend to continue current medications. Continue symptomatic treatment. Continue with Lasix. Otherwise, I would also order a CT scan of the chest to evaluate for the possible nodule. Otherwise, closely follow with Cardiology and further to recommendations. MMODL / IJN: [id number] /
[2018-03-23] MEDS: PANTOPRAZOLE 40 MG TABLET PO SCH (06:46)
[2018-03-23] MEDS: LEVOTHYROXINE 75 MCG TAB PO SCH (06:46)
[2018-03-23 07:26] LABS: Basophils # (A) 0.1 k/uL (0-0.2); Basophils % (A) 1 %; Eosinophils # (A) 0.5 k/uL (0-0.7); Eosinophils % (A) 8 %; HCT 41.8 % (39.0-53.0); HGB 13.2 gm/dL (13.0-17.5); Lymphocytes # (A) 1.1 k/uL (1.0-4.8); Lymphocytes % (A) 18 %; MCH 28.9 pg (25.0-35.0); MCHC 31.6 g/dL (31.0-37.0); MCV 91.4 fL (80.0-100.0); Mean Platelet Volume 6.7; Monocytes # (A) 0.4 k/uL (0-1.0); Monocytes % (A) 7 %; Neutrophils # (A) 3.9 k/uL (1.3-7.7); Neutrophils % (A) 65 %; Platelet Count 199 k/uL (150-450); RBC 4.58 m/uL (4.30-5.90); RDW 14.2 % (11.5-15.5); WBC 6.1 k/uL (3.8-10.6)
[2018-03-23 07:39] LABS: Calcium 9.6 mg/dL (8.4-10.2); Potassium 4.1 mmol/L (3.5-5.1)
--- NOTE | 2018-03-23 08:24 | PN ---
PROGRESS NOTE Mr. Sanchez is an 87-year-old gentleman who was admitted with symptoms of shortness of breath chest pain. Patient is feeling better. He denies any orthopnea or PND. The patient's oxygen saturation is 91%. The blood pressure is 130/80 mmHg. Heart S1, S2 heard. Lungs are clinically clear to auscultation and percussion. The patient's D- dimer is 1.66. Chest x-ray does not show any significant heart failure. Patient will be switched to the p.o. Lasix. Overall history is not suggestive of pulmonary embolism. Patient currently is already on Eliquis, so we will continue the current medications. If the patient remains stable, he can be discharged home tomorrow. VIKI / DAYANARAN: [id number] /
[2018-03-23 08:46] VITALS: RESP 18
[2018-03-23] MEDS: POTASSIUM CHLORIDE ER 20 MEQ TAB.ER PO SCH (09:21)
[2018-03-23] MEDS: APIXABAN 2.5 MG TABLET PO SCH (09:21)
[2018-03-23] MEDS: SPIRONOLACTONE 25 MG TAB PO SCH (09:21)
[2018-03-23] MEDS: LOSARTAN 25 MG TAB PO SCH (09:22)
[2018-03-23] MEDS: ASPIRIN 325 MG TAB PO SCH (09:22)
[2018-03-23] MEDS: METOPROLOL TARTRATE 25 MG TAB PO SCH (09:22)
[2018-03-23] MEDS: ATORVASTATIN 40 MG TAB PO SCH (09:22)
[2018-03-23] MEDS: NITROGLYCERIN OINT 1 INCH/GM PACKET TOPICAL SCH ×2 (09:29→12:55)
[2018-03-23] MEDS ORDERED: FUROSEMIDE 40 MG TAB PO SCH ×2 (10:05→16:00)
[2018-03-23 11:46] VITALS: BP 109/68; PULSE 62
--- NOTE | 2018-03-23 12:51 | P.PN ---
Subjective Mr. Sanchez is a pleasant 87-year-old male past medical history significant for paroxysmal atrial fibrillation , coronary artery disease, systolic congestive heart failure, moderate to severe mitral regurgitation and mild pulmonary hypertension. He recent was admitted with NSTEMI and underwent angioplasty. He presented with increased shortness of breath and diagnosed with acute exacerbation of heart failure and was started on IV diuretics. He is seen and examined sitting up in bed in no acute distress. He states his breathing is much better. Denies chest pain, dizziness or palpitations. Laboratory data reviewed, hgb 13.2, plt 172, sodium 137, potassium 4.1, creatinine 1.22. Blood pressure 109/68 heart rate 62 afebrile. Objective - Vital Signs Vital signs: Vital Signs Temp 97.4 F L 03/23/18 08:00 Pulse 62 03/23/18 11:45 Resp 18 03/23/18 11:45 BP 109/68 03/23/18 11:45 Pulse Ox 94 L 03/23/18 11:45 Intake & Output 03/22/18 03/23/18 03/23/18 18:59 06:59 18:59 Intake Total 720 30 240 Output Total 800 Balance -80 30 240 Weight 85.1 kg Intake: IV 30 Invasive Line 1 30 Oral 720 240 Output: Urine 800 Other: Voiding Method Self-Catheterization Self-Catheterization Self-Catheterization # Voids 2 1 - Exam GENERAL: Well-appearing, well-nourished and in no acute distress. NECK: Supple without JVD or thyromegaly. LUNGS: Breath sounds clear to auscultation bilaterally. Respiration equal and unlabored. No wheezes, rales or rhonchi. HEART: Irregular rate and rhythm with systolic murmur at the apex, no rubs or gallops. S1 and S2 heard. EXTREMITIES: Normal range of motion, no edema. No clubbing or cyanosis. Peripheral pulses intact. - Labs CBC & Chem 7: 03/23/18 07:13 03/23/18 07:13 Labs: Abnormal Lab Results - Last 24 Hours (Table) 03/23/18 Range/Units 07:13 Chloride 95 L (98-107) mmol/L Carbon Dioxide 33 H (22-30) mmol/L BUN 22 H (9-20) mg/dL Glucose 106 H (74-99) mg/dL Assessment and Plan Assessment: ASSESSMENT Acute exacerbation systolic heart failure. 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 Continue Lopressor 25 mg twice a day, atorvastatin 40 mg daily, aspirin 81 mg daily and Eliquis 2.5 mg twice a day. Follow-up appointment has been made with Dr. Bucio. Stable from a cardiac perspective. Nurse Practitioner note has been reviewed, I agree with a documented findings and plan of care. Patient was seen and examined.
--- NOTE | 2018-03-30 14:00 | P.DS ---
Providers Date of admission: 03/20/18 12:13 Expected date of discharge: 03/23/18 Attending physician: Breonna Frankel Consults: 03/20/18 12:12 Consult Physician Routine Consulting Provider: [facility] Consult Reason/Comments: Acute pulmonary edema Do you want consulting provider notified?: Yes Primary care physician: Angie Palomares [facility] Course: Final Diagnoses: -Shortness of breath and possible acute on chronic congestive heart failure exacerbation, systolic dysfunction, EF 4045% -Troponin 0.118, possible acute non-STEMI -Chronic Persistent Atrial fibrillation with controlled ventricular rate -Possible 1.8 cm right basilar pulmonary nodule per chest x-ray.CT reported few paratracheal lymph nodes less than 1 cm, no hilar masses, 1.3 cm calcified nodule in the right middle lobe, partially calcified 8 mm nodule anterior right middle lobe, 8 mm calcified granuloma at the right pulmonary hilum-no suspicious pulmonary nodules,old granulomatous disease. -Hypothyroidism -Moderate to severe mitral and tricuspid regurgitation -Hypokalemia, resolved -Mild Acute renal failure, diuretic induced. Hospital course this is an 87-year-old gentleman acute CHF exacerbation, recent non-STEMI /status post angioplasty and multiple other medical issues. Evaluated by cardiology. Diuresed well on IV diuretics. Significant clinical improvement. Chest x-ray reported to 1.8 cm right basal pulmonary nodule. CT reported few paratracheal lymph nodes less than 1 cm, no hilar masses, 1.3 cm calcified nodule in the right middle lobe, partially calcified 8 mm nodule anterior right middle lobe, 8 mm calcified granuloma at the right pulmonary hilum-no suspicious pulmonary nodules,old granulomatous disease. Patient has been cleared by cardiology for discharge. Patient is being discharged home in a stable condition with guarded prognosis. EXAM: Sitting up in bed, no acute distress CV:GENERAL: S1, S2, Irregular, positive systolic murmur, no rubs or gallops.LUNGS: Respiratory effort normal ,Clear to auscultation, no rhonchi, crackles, wheezes.ABD: Soft, nontender, positive bowel sounds. NEURO: No focal deficits. The impression and plan of care has been dictated as directed. : I performed a history and examination of this patient, discussed the same with the dictator. I agree with the dictator's note ,documented as a scribe. Any additional findings or plans will be noted. Time taken: 35 minutes Patient Condition at Discharge: Stable Plan - Discharge Summary New Discharge Prescriptions: Continue Levothyroxine Sodium [Synthroid] 75 mcg PO DAILY Albuterol Inhaler [Ventolin Hfa Inhaler] 1 - 2 puff INHALATION RT-Q6H PRN PRN Reason: Shortness Of Breath Apixaban [Eliquis] 2.5 mg PO BID #60 tablet Aspirin 81 mg PO DAILY #30 chew Atorvastatin [Lipitor] 40 mg PO DAILY #30 tab Metoprolol Tartrate [Lopressor] 25 mg PO BID #60 tab Nitroglycerin Sl Tabs [Nitrostat] 0.4 mg SUBLINGUAL Q5M PRN #30 tab PRN Reason: Chest Pain Furosemide [Lasix] 40 mg PO BID@0900,1600 #60 tab Discharge Medication List Levothyroxine Sodium [Synthroid] 75 mcg PO DAILY 03/14/18 [History] Albuterol Inhaler [Ventolin Hfa Inhaler] 1 - 2 puff INHALATION RT-Q6H PRN [History] Apixaban [Eliquis] 2.5 mg PO BID #60 tablet 03/17/18 [Rx] Aspirin 81 mg PO DAILY #30 chew 03/17/18 [Rx] Atorvastatin [Lipitor] 40 mg PO DAILY #30 tab 03/17/18 [Rx] Furosemide [Lasix] 40 mg PO BID@0900,1600 #60 tab 03/17/18 [Rx] Metoprolol Tartrate [Lopressor] 25 mg PO BID #60 tab 03/17/18 [Rx] Nitroglycerin Sl Tabs [Nitrostat] 0.4 mg SUBLINGUAL Q5M PRN #30 tab 03/17/18 [Rx ] Follow up Appointment(s)/Referral(s): Angie Palomares MD [Primary Care Provider] - 03/29/18 9:00 am Cole Bucio MD [STAFF PHYSICIAN] - 03/25/18 4:00 pm (Please keep previous follow up appointment. Rupinder off for the rest of the month.) Remigio Gonzalez MD [STAFF PHYSICIAN] - 2 Weeks Ambulatory/Diagnostic Orders: Complete Blood Count w/diff [LAB.AMB] Time Frame: 3 Days, Location: None Selected Patient Instructions/Handouts: Heart Failure (DC), Pulmonary Edema (DC), Low- Sodium Diet (DC) Discharge Disposition: HOME SELF-CARE
== END 2018-03-23 14:50 | disposition home or self-care (01) | DRG 280 ==
LOC: EC 10:39 → 6SEL 12:13
PROVIDERS: ADMIT Hospitalist; ATTEND Hospitalist
DX: I21.4 Non-ST elevation (NSTEMI) myocardial infarction (principal); I50.23 Acute on chronic systolic (congestive) heart failure; I48.2 Chronic atrial fibrillation; I25.10 Atherosclerotic heart disease of native coronary artery without angina pectoris; E03.9 Hypothyroidism, unspecified; E87.6 Hypokalemia; I27.20 Pulmonary hypertension, unspecified; Z96.652 Presence of left artificial knee joint; I08.1 Rheumatic disorders of both mitral and tricuspid valves; Z87.891 Personal history of nicotine dependence; Z79.01 Long term (current) use of anticoagulants; Z79.82 Long term (current) use of aspirin; Z79.899 Other long term (current) drug therapy
CPT/HCPCS: 36415; 71045; 71046; 71250; 80048; 80053; 81003; 82550; 82553; 83735; 83880; 84484; 85025; 85379; 85610; 85730; 96374; 99285

== ENCOUNTER 2018-05-18 19:06 | Inpatient (IN) | payer MEDICARE ==
[2018-05-18] MEDS ORDERED: SODIUM CHLORIDE 0.9% 500 ML 500 ML IV STA (20:22)
[2018-05-18] MEDS ORDERED: SODIUM CHLORIDE 0.9% 1,000 ML IV STA (20:22)
--- NOTE | 2018-05-18 20:45 | ED ---
General Adult HPI <AlexandrTres - Last Filed: 05/18/18 22:27> - General Source: patient, family, RN notes reviewed, old records reviewed Mode of arrival: wheelchair Limitations: no limitations <HaydeMaribel - Last Filed: 05/18/18 23:14> - General Chief complaint: Recheck/Abnormal Lab/Rx Stated complaint: Water retention Time Seen by Provider: 05/18/18 19:51 - History of Present Illness Initial comments: 87-year-old excess fluid retention. He has a history of CHF and A. fib. Patient reports that over the past that he's been 5 pounds. Patient states that he has having some dyspnea on exertion. He was treated in February for chest pains. He states he has no pain at this time. He reports that he feels like he is having increased swelling in his legs up into his abdomen and is having hard time buckling his by pants. Eyes any abdominal pain. He reports he 's had normal stools and he does have to self cath to help relieve his urine. Patient states that he has had no fevers or chills. Denies any cough. ( Maribel Lock) - Related Data Home Medications Medication Instructions Recorded Confirmed Levothyroxine Sodium [Synthroid] 75 mcg PO DAILY 03/14/18 05/18/18 Isosorbide Mononitrate ER [Imdur] 15 mg PO DAILY 05/18/18 05/18/18 Previous Rx's Medication Instructions Recorded Apixaban [Eliquis] 2.5 mg PO BID #60 tablet 03/17/18 Aspirin 81 mg PO DAILY #30 chew 03/17/18 Atorvastatin [Lipitor] 40 mg PO DAILY #30 tab 03/17/18 Furosemide [Lasix] 40 mg PO BID@0900,1600 #60 tab 03/17/18 Metoprolol Tartrate [Lopressor] 25 mg PO BID #60 tab 03/17/18 Nitroglycerin Sl Tabs [Nitrostat] 0.4 mg SUBLINGUAL Q5M PRN #30 tab 03/17/18 Allergies Allergy/AdvReac Type Severity Reaction Status Date / Time No Known Allergies Allergy Verified 05/18/18 19:49 Review of Systems ROS Other: All systems not noted in ROS Statement are negative. <Tres Strange - Last Filed: 05/18/18 22:27> ROS Other: All systems not noted in ROS Statement are negative. <Maribel Lock - Last Filed: 05/18/18 23:14> ROS Statement: Those systems with pertinent positive or pertinent negative responses have been documented in the HPI. Past Medical History Past Medical History: Atrial Fibrillation, Thyroid Disorder Additional Past Medical History / Comment(s): Pt uses straight catheterization , LEAKY HEART VALVES History of Any Multi-Drug Resistant Organisms: None Reported Past Surgical History: Heart Catheterization, Hernia Repair, Orthopedic Surgery Additional Past Surgical History / Comment(s): left knee replacement, back surgery, prostste surgery Past Psychological History: No Psychological Hx Reported Smoking Status: Former smoker Past Alcohol Use History: None Reported Past Drug Use History: None Reported <Maribel Lock - Last Filed: 05/18/18 23:14> General Exam <Tres Strange - Last Filed: 05/18/18 22:27> Limitations: no limitations General appearance: alert, in no apparent distress Head exam: Present: atraumatic, normocephalic, normal inspection Eye exam: Present: normal appearance, PERRL, EOMI. Absent: scleral icterus, conjunctival injection, periorbital swelling ENT exam: Present: normal exam, mucous membranes moist Neck exam: Present: normal inspection. Absent: tenderness, meningismus, lymphadenopathy Respiratory exam: Present: decreased breath sounds. Absent: normal lung sounds bilaterally, respiratory distress, rales, rhonchi, stridor Cardiovascular Exam: Present: regular rate, normal rhythm, normal heart sounds. Absent: systolic murmur, diastolic murmur, rubs, gallop, clicks GI/Abdominal exam: Present: soft, normal bowel sounds. Absent: distended, tenderness, guarding, rebound, rigid Extremities exam: Present: normal inspection, full ROM, normal capillary refill , pedal edema. Absent: tenderness, joint swelling, calf tenderness Back exam: Present: normal inspection Neurological exam: Present: alert, oriented X3, CN II-XII intact <Maribel Lock - Last Filed: 05/18/18 23:14> - General Exam Comments Initial Comments: This patient's a 89-year-old male. Alert and oriented. No significant distress. (Maribel Lock) Course <Tres Strange - Last Filed: 05/18/18 22:27> <Maribel Lock - Last Filed: 05/18/18 23:14> Vital Signs 05/18/18 05/18/18 05/18/18 19:09 19:30 20:30 Temperature 98.2 F Pulse Rate 80 71 73 Respiratory 16 15 22 Rate Blood Pressure 106/67 114/75 146/91 O2 Sat by Pulse 97 93 L 93 L Oximetry 05/18/18 05/18/18 05/18/18 21:30 22:00 23:00 Temperature Pulse Rate 89 68 86 Respiratory 20 22 24 Rate Blood Pressure 124/95 124/95 130/74 O2 Sat by Pulse 93 L 94 L 94 L Oximetry - Reevaluation(s) Reevaluation #1: 05/18/18 22:27 PA supervision: I personally do a [id number] evaluation the patient and did discuss findings with him and his family. Patient presents with complaints of exertional dyspnea with about a pound weight gain over last several days. Lung sounds reveal diminished breath sounds x-ray show evidence of CHF he does have elevated BNP as well as elevated troponin. He does present with evidence of a non-STEMI as well as CHF. He will be admitted with cardiology consultation. The case is discussed with Dr. Maldonado. I do agree with the assessment and plan. Additionally the patient did complain of scrotal penile edema which is been coming on for the same period time. (Tres Strange) Medical Decision Making - Lab Data Result diagrams: 05/18/18 19:41 05/18/18 19:41 <Tres Strange - Last Filed: 05/18/18 22:27> - Lab Data Result diagrams: 05/18/18 19:41 05/18/18 19:41 - Radiology Data Radiology results: report reviewed <Maribel Lock - Last Filed: 05/18/18 23:14> - Medical Decision Making 87-year-old male present is a with shortness breath on exertion and increased fluid retention. Patient has history of A. fib. He is on Eliquis. He denies any specific chest pain at this time. He does have some pedal edema. Chest x- ray shows acute CHF exacerbation with pleural effusion. Patient was started on Lasix and Nitropaste. He does have an elevated troponin as well. I will start the Patient on heparin. Patient is concerned for admission because he will miss his granddaughter's wedding. He does agree to be admitted. Consult to cardiology. (Maribel Lock) - Lab Data Lab Results 05/18/18 05/18/18 05/18/18 Range/Units 19:41 19:41 19:41 WBC 5.1 (3.8-10.6) k/uL RBC 4.58 (4.30-5.90) m/uL Hgb 13.3 (13.0-17.5) gm/dL Hct 41.6 (39.0-53.0) % MCV 90.8 (80.0-100.0) fL MCH 29.1 (25.0-35.0) pg MCHC 32.1 (31.0-37.0) g/dL RDW 15.0 (11.5-15.5) % Plt Count 155 (150-450) k/uL Neutrophils % 70 % Lymphocytes % 16 % Monocytes % 6 % Eosinophils % 5 % Basophils % 1 % Neutrophils # 3.5 (1.3-7.7) k/uL Lymphocytes # 0.8 L (1.0-4.8) k/uL Monocytes # 0.3 (0-1.0) k/uL Eosinophils # 0.3 (0-0.7) k/uL Basophils # 0.0 (0-0.2) k/uL PT (9.0-12.0) sec INR (<1.2) APTT (22.0-30.0) sec Sodium 136 L (137-145) mmol/L Potassium 3.9 (3.5-5.1) mmol/L Chloride 99 (98-107) mmol/L Carbon Dioxide 28 (22-30) mmol/L Anion Gap 9 mmol/L BUN 26 H (9-20) mg/dL Creatinine 1.21 (0.66-1.25) mg/dL Est GFR (CKD-EPI)AfAm 62 (>60 ml/min/1.73 sqM) Est GFR (CKD-EPI)NonAf 54 (>60 ml/min/1.73 sqM) Glucose 118 H (74-99) mg/dL Calcium 9.1 (8.4-10.2) mg/dL Magnesium 2.2 (1.6-2.3) mg/dL Total Bilirubin 2.4 H (0.2-1.3) mg/dL AST 63 H (17-59) U/L ALT 46 (21-72) U/L Alkaline Phosphatase 170 H (38-126) U/L Total Creatine Kinase 293 H (55-170) U/L CK-MB (CK-2) 5.3 H (0.0-2.4) ng/mL CK-MB (CK-2) Rel Index 1.8 Troponin I 0.347 H* (0.000-0.034) ng/mL NT-Pro-B Natriuret Pep pg/mL Total Protein 6.8 (6.3-8.2) g/dL Albumin 3.8 (3.5-5.0) g/dL Amylase 40 (30-110) U/L Lipase 287 (23-300) U/L Urine Color Urine Appearance (Clear) Urine pH (5.0-8.0) Ur Specific [place] (1.001-1.035) Urine Protein (Negative) Urine Glucose (UA) (Negative) Urine Ketones (Negative) Urine Blood (Negative) Urine Nitrite (Negative) Urine Bilirubin (Negative) Urine Urobilinogen (<2.0) mg/dL Ur Leukocyte Esterase (Negative) Urine RBC (0-5) /hpf Urine WBC (0-5) /hpf Urine Bacteria (None) /hpf Hyaline Casts (0-2) /lpf Urine Mucus (None) /hpf 05/18/18 05/18/18 05/18/18 Range/Units 19:41 19:41 20:56 WBC (3.8-10.6) k/uL RBC (4.30-5.90) m/uL Hgb (13.0-17.5) gm/dL Hct (39.0-53.0) % MCV (80.0-100.0) fL MCH (25.0-35.0) pg MCHC (31.0-37.0) g/dL RDW (11.5-15.5) % Plt Count (150-450) k/uL Neutrophils % % Lymphocytes % % Monocytes % % Eosinophils % % Basophils % % Neutrophils # (1.3-7.7) k/uL Lymphocytes # (1.0-4.8) k/uL Monocytes # (0-1.0) k/uL Eosinophils # (0-0.7) k/uL Basophils # (0-0.2) k/uL PT 12.7 H (9.0-12.0) sec INR 1.3 H (<1.2) APTT 27.1 (22.0-30.0) sec Sodium (137-145) mmol/L Potassium (3.5-5.1) mmol/L Chloride (98-107) mmol/L Carbon Dioxide (22-30) mmol/L Anion Gap mmol/L BUN (9-20) mg/dL Creatinine (0.66-1.25) mg/dL Est GFR (CKD-EPI)AfAm (>60 ml/min/1.73 sqM) Est GFR (CKD-EPI)NonAf (>60 ml/min/1.73 sqM) Glucose (74-99) mg/dL Calcium (8.4-10.2) mg/dL Magnesium (1.6-2.3) mg/dL Total Bilirubin (0.2-1.3) mg/dL AST (17-59) U/L ALT (21-72) U/L Alkaline Phosphatase (38-126) U/L Total Creatine Kinase (55-170) U/L CK-MB (CK-2) (0.0-2.4) ng/mL CK-MB (CK-2) Rel Index Troponin I (0.000-0.034) ng/mL NT-Pro-B Natriuret Pep 8130 pg/mL Total Protein (6.3-8.2) g/dL Albumin (3.5-5.0) g/dL Amylase (30-110) U/L Lipase (23-300) U/L Urine Color Yellow Urine Appearance Clear (Clear) Urine pH 6.5 (5.0-8.0) Ur Specific [place] 1.008 (1.001-1.035) Urine Protein Negative (Negative) Urine Glucose (UA) Negative (Negative) Urine Ketones Negative (Negative) Urine Blood Negative (Negative) Urine Nitrite Positive (Negative) Urine Bilirubin Negative (Negative) Urine Urobilinogen <2.0 (<2.0) mg/dL Ur Leukocyte Esterase Moderate H (Negative) Urine RBC 2 (0-5) /hpf Urine WBC 16 H (0-5) /hpf Urine Bacteria Few H (None) /hpf Hyaline Casts 7 H (0-2) /lpf Urine Mucus Rare H (None) /hpf 05/18/18 22:48 EKG shows atrial fibrillation level distress. Her condition to return. Anterolateral infarct age undetermined. Abnormal EKG noted. Ventricular rate of 70 bpm. NC interval is undetectable. Frustration 86. QT QTc is 44/436 most seconds. 05/18/18 23:11 (Maribel Lock) - Radiology Data Correlate for CHF exacerbation. There is cardiomegaly with new bilateral pleural effusion. Associated left basilar atelectasis or infiltrate is noted. ( Maribel Lock) Disposition <Tres Strange - Last Filed: 05/18/18 22:27> Is patient prescribed a controlled substance at d/c from ED?: No Time of Disposition: 22:38 <Maribel Lock - Last Filed: 05/18/18 23:14> Clinical Impression: NSTEMI (non-ST elevated myocardial infarction), CHF (congestive heart failure) Disposition: ADMITTED IP TO THIS HOSP Condition: Stable
[2018-05-18 20:48] LABS: Basophils % (A) 1 %; Eosinophils # (A) 0.3 k/uL (0-0.7); Eosinophils % (A) 5 %; HCT 41.6 % (39.0-53.0); HGB 13.3 gm/dL (13.0-17.5); Lymphocytes # (A) 0.8 k/uL (1.0-4.8); Lymphocytes % (A) 16 %; MCH 29.1 pg (25.0-35.0); MCHC 32.1 g/dL (31.0-37.0); MCV 90.8 fL (80.0-100.0); Mean Platelet Volume 7.9; Monocytes # (A) 0.3 k/uL (0-1.0); Monocytes % (A) 6 %; Neutrophils # (A) 3.5 k/uL (1.3-7.7); Neutrophils % (A) 70 %; Platelet Count 155 k/uL (150-450); RBC 4.58 m/uL (4.30-5.90); WBC 5.1 k/uL (3.8-10.6)
[2018-05-18 20:54] LABS: Albumin 3.8 g/dL (3.5-5.0); Calcium 9.1 mg/dL (8.4-10.2); Magnesium 2.2 mg/dL (1.6-2.3); Potassium 3.9 mmol/L (3.5-5.1); Total Bilirubin 2.4 mg/dL (0.2-1.3); Total Protein 6.8 g/dL (6.3-8.2)
--- NOTE | 2018-05-18 21:01 | XR ---
EXAMINATION TYPE: XR chest 2V DATE OF EXAM: 05/18/2018 COMPARISON: Chest x-ray and CT chest March 22, 2018. HISTORY: History of CHF with chest pain. TECHNIQUE: Frontal and lateral views of the chest are obtained. FINDINGS: There is cardiomegaly redemonstrated. New small bilateral pleural effusions are seen. Th ere is associated left basilar atelectasis and/or infiltrate. Calcified granuloma right lower lung is redemonstrated slightly ectatic descending thoracic aorta is redemonstrated. The osseous structures remain demineralized. IMPRESSION: Correlate for CHF exacerbation and there is cardiomegaly with new small bilateral pleura l effusions. Associated left basilar atelectasis and/or infiltrate is noted.
[2018-05-18 21:10] LABS: Creatine Kinase MB 5.3 ng/mL (0.0-2.4)
[2018-05-18 21:11] LABS: Troponin I 0.347 ng/mL (0.000-0.034)
[2018-05-18 21:14] LABS: Appearance,Urine Clear (Clear); Bacteria,Urine Few /hpf; Bilirubin,Urine Negative (Negative); Blood,Urine Negative (Negative); Color,Urine Yellow; Glucose,Urine (UA) Negative (Negative); Hyaline Casts,Urine 7 /lpf (0-2); Ketones,Urine Negative (Negative); Leukocyte Esterase,Urine Moderate (Negative); Mucus,Urine Rare /hpf; Nitrite,Urine Positive (Negative); PH, Urine 6.5 (5.0-8.0); Protein,Urine Negative (Negative); RBC,Urine 2 /hpf (0-5); Specific Gravity,Urine 1.008 (1.001-1.035); Urobilinogen,Urine <2.0 mg/dL (<2.0); WBC,Urine 16 /hpf (0-5)
[2018-05-18] MEDS ORDERED: HEPARIN SODIUM,PORCINE 5,000 UNIT/ML 1 ML VIAL IV ONE (21:37)
[2018-05-18] MEDS ORDERED: NITROGLYCERIN SL TABS 0.4 MG TAB SUBLINGUAL PRN (21:37)
[2018-05-18] MEDS ORDERED: FUROSEMIDE 10 MG/ML 4 ML VIAL IV STA (21:39)
[2018-05-18] MEDS: FUROSEMIDE 10 MG/ML 4 ML VIAL IV SCH (21:48)
[2018-05-18] MEDS ORDERED: HEPARIN SOD,PORK IN 0.45% NACL 25,000 UNIT in 0.45% NACL 1 500ML.BAG IV SCH (22:00)
[2018-05-18] MEDS ORDERED: NITROGLYCERIN OINT 1 INCH/GM PACKET TOPICAL SCH (22:00)
[2018-05-18 22:31] LABS: INR 1.3 (<1.2); Partial Thromboplastin Time 27.1 sec (22.0-30.0); Prothrombin Time 12.7 sec (9.0-12.0)
[2018-05-18 23:40] VITALS: BMI 29.7
[2018-05-18 23:51] LABS: Cholesterol 86 mg/dL (<200); HDL Cholesterol 51 mg/dL (40-60); LDL Cholesterol,Calculated 23 mg/dL (0-99); Triglycerides 61 mg/dL (<150)
[2018-05-19 02:18] LABS: Creatine Kinase MB 4.6 ng/mL (0.0-2.4)
[2018-05-19 02:23] LABS: Troponin I 0.411 ng/mL (0.000-0.034)
[2018-05-19] MEDS: FUROSEMIDE 10 MG/ML 4 ML VIAL IV SCH ×3 (05:28→21:13)
[2018-05-19 08:34] LABS: Creatine Kinase MB 4.7 ng/mL (0.0-2.4)
[2018-05-19 08:38] LABS: Troponin I 0.437 ng/mL (0.000-0.034)
[2018-05-19] MEDS ORDERED: ASPIRIN 325 MG TAB PO SCH (09:00)
--- NOTE | 2018-05-19 10:52 | P.CRDCN ---
History of Present Illness Consult date: 05/19/18 Requesting physician: Peggy Maldonado Consult reason: congestive heart failure Chief complaint: Shortness of breath and weight gain History of present illness: This is a pleasant 87-year-old gentleman who follows regularly with Dr. Bucio in the office. Patient has history of prior congestive cardiac failure with his most recent admission being in February of this year, at which time an echocardiogram with Doppler study was performed which revealed an ejection fraction of 45-50%, moderate to severe mitral regurg and moderate to severe tricuspid regurg noted at that time. Patient also underwent a cardiac catheterization in February by Dr. Bucio which revealed diffuse coronary artery disease with an intermediate lesion in the LAD in the proximal and midportion, right coronary artery and circumflex were free of any disease, and medical therapy was advised at that time. Patient comes to the hospital on this admission with a one-week duration of worsening shortness of breath, positive PND and orthopnea. Patient also states that he has put on a significant amount of swelling since that time. Patient has history of chronic persistent atrial fibrillation. He is on Eliquis for anticoagulation. Chest x- ray on admission showed correlation for congestive heart failure exacerbation and cardiomegaly with new small bilateral pleural effusions. EKG on admission here showed atrial fibrillation with a controlled ventricular response. Blood pressure 114/70 with a heart rate in the 70s, 93% on room air. CBC is normal. Sodium 136, potassium 3.9, BUN 26, creatinine 1.2. Troponin 0.3, 0.4, 0.4. BNP level 8130. Patient was initiated on IV Lasix in the emergency room and has been diuresing well through the night last night. At the time of my examination this morning, patient actually feels well. He is anxious to head to [place] for his granddaughter's wedding. We will discontinue the IV heparin and resume the Eliquis which she was on at home, decrease aspirin to 81 mg daily. Continue Lipitor, IV Lasix, resume metoprolol. Past Medical History Past Medical History: Atrial Fibrillation, Thyroid Disorder Additional Past Medical History / Comment(s): Pt uses straight catheterization , LEAKY HEART VALVES History of Any Multi-Drug Resistant Organisms: None Reported Past Surgical History: Heart Catheterization, Hernia Repair, Orthopedic Surgery Additional Past Surgical History / Comment(s): left knee replacement, back surgery, prostste surgery Past Psychological History: No Psychological Hx Reported Smoking Status: Former smoker Past Alcohol Use History: None Reported Past Drug Use History: None Reported - Past Family History Father Family Medical History: Cancer Additional Family Medical History / Comment(s): pancreas/liver cancer Daughter(s) Family Medical History: Cancer Additional Family Medical History / Comment(s): 'some sort of GI cancer' Medications and Allergies Home Medications Medication Instructions Recorded Confirmed Type Levothyroxine Sodium [Synthroid] 75 mcg PO DAILY 03/14/18 05/18/18 History Apixaban [Eliquis] 2.5 mg PO BID #60 tablet 03/17/18 05/18/18 Rx Aspirin 81 mg PO DAILY #30 chew 03/17/18 05/18/18 Rx Atorvastatin [Lipitor] 40 mg PO DAILY #30 tab 03/17/18 05/18/18 Rx Furosemide [Lasix] 40 mg PO BID@0900,1600 #60 tab 03/17/18 05/18/18 Rx Metoprolol Tartrate [Lopressor] 25 mg PO BID #60 tab 03/17/18 05/18/18 Rx Nitroglycerin Sl Tabs [Nitrostat] 0.4 mg SUBLINGUAL Q5M PRN #30 tab 03/17/18 Rx Isosorbide Mononitrate ER [Imdur] 15 mg PO DAILY 05/18/18 05/18/18 History Allergies Allergy/AdvReac Type Severity Reaction Status Date / Time No Known Allergies Allergy Verified 05/18/18 19:49 Physical Exam Vitals: Vital Signs Temp Pulse Pulse Resp BP BP Pulse Ox 05/19/18 09:06 97.7 F 75 16 117/72 95 05/19/18 04:00 97.4 F L 54 L 18 129/79 97 05/19/18 00:00 56 L 22 119/56 96 05/18/18 23:07 97.8 F 56 L 20 120/59 94 L 05/18/18 23:00 86 24 130/74 94 L 05/18/18 22:00 68 22 124/95 94 L 05/18/18 21:30 89 20 124/95 93 L 05/18/18 20:30 73 22 146/91 93 L 05/18/18 19:30 71 15 114/75 93 L 05/18/18 19:09 98.2 F 80 16 106/67 97 Intake and Output 05/18/18 05/19/18 05/19/18 22:59 06:59 14:59 Intake Total 480 Output Total 450 650 Balance -450 -170 Intake: Oral 480 Output: Urine 450 650 Other: Voiding Method Self-Catheterization Self-Catheterization Weight 88.451 kg 94 kg PHYSICAL EXAMINATION: GENERAL: 87-year-old gentleman in no acute distress at the time of my examination HEENT: Head is atraumatic, normocephalic. Pupils equal, round. Sclera anicteric. Conjunctiva are clear. Mucous membranes of the mouth are moist. Neck is supple. There is elevated jugular venous pressure. No carotid bruit is heard. HEART EXAMINATION: Heart S1 and S2 irregularly irregular a systolic murmur is heard. CHEST EXAMINATION: Lungs are clear with fine crackles to bilateral bases. ABDOMEN: Soft, nontender. Bowel sounds are heard. No organomegaly noted. EXTREMITIES: 2+ peripheral pulses with trace evidence of peripheral edema and no calf tenderness noted. NEUROLOGIC patient is awake, alert and oriented X3. . Results 05/18/18 19:41 05/18/18 19:41 Cardiac Enzymes 05/18/18 05/18/18 05/19/18 Range/Units 19:41 19:41 01:40 AST 63 H (17-59) U/L CK-MB (CK-2) 5.3 H 4.6 H (0.0-2.4) ng/mL Troponin I 0.347 H* 0.411 H* (0.000-0.034) ng/mL 05/19/18 Range/Units 07:28 AST (17-59) U/L CK-MB (CK-2) 4.7 H (0.0-2.4) ng/mL Troponin I 0.437 H* (0.000-0.034) ng/mL Coagulation 05/18/18 05/19/18 Range/Units 19:41 07:28 PT 12.7 H (9.0-12.0) sec APTT 27.1 97.5 H (22.0-30.0) sec Lipids 05/18/18 Range/Units 18:41 Triglycerides 61 (<150) mg/dL Cholesterol 86 (<200) mg/dL HDL Cholesterol 51 (40-60) mg/dL CBC 05/18/18 Range/Units 19:41 WBC 5.1 (3.8-10.6) k/uL RBC 4.58 (4.30-5.90) m/uL Hgb 13.3 (13.0-17.5) gm/dL Hct 41.6 (39.0-53.0) % Plt Count 155 (150-450) k/uL Comprehensive Metabolic Panel 05/18/18 Range/Units 19:41 Sodium 136 L (137-145) mmol/L Potassium 3.9 (3.5-5.1) mmol/L Chloride 99 (98-107) mmol/L Carbon Dioxide 28 (22-30) mmol/L BUN 26 H (9-20) mg/dL Creatinine 1.21 (0.66-1.25) mg/dL Glucose 118 H (74-99) mg/dL Calcium 9.1 (8.4-10.2) mg/dL AST 63 H (17-59) U/L ALT 46 (21-72) U/L Alkaline Phosphatase 170 H (38-126) U/L Total Protein 6.8 (6.3-8.2) g/dL Albumin 3.8 (3.5-5.0) g/dL Current Medications Generic Name Dose Route Start Last Admin Trade Name Freq PRN Reason Stop Dose Admin Aspirin 325 mg 05/19/18 09:00 Aspirin PO DAILY SHAINA Furosemide 40 mg 05/18/18 21:45 05/19/18 05:28 Lasix IV 40 mg Q8H SHAINA Administration Heparin Sodium/Sodium Chloride 500 mls @ 20 mls/hr 05/18/18 22:00 05/18/18 22 :27 25,000 unit/ Sodium Chloride IV 11.3 units/kg/hr .Q24H SHAINA 19.98 mls/hr Administration Protocol Nitroglycerin 0.4 mg 05/18/18 21:37 Nitrostat SUBLINGUAL Q5M PRN Chest Pain Nitroglycerin 1 inch 05/18/18 22:00 05/18/18 22:31 Nitro-Bid Oint TOPICAL 1 inch QID SHAINA Administration Intake and Output 05/18/18 05/19/18 05/19/18 22:59 06:59 14:59 Intake Total 480 Output Total 450 650 Balance -450 -170 Intake: Oral 480 Output: Urine 450 650 Other: Voiding Method Self-Catheterization Self-Catheterization Weight 88.451 kg 94 kg 05/18/18 19:41 05/18/18 19:41 EKG Interpretations (text) EKG shows atrial fibrillation with controlled ventricular response Assessment and Plan Plan: Assessment and plan #1 diastolic congestive heart failure acute on chronic #2 abnormal troponins, not consistent with acute coronary syndrome, likely secondary to supply and demand mismatch. Patient underwent a cardiac catheterization in February of this year which revealed diffuse coronary artery disease with an intermediate lesion in the LAD and in its proximal and midportion, medical therapy advised at that time. He also had an echo performed in February which revealed an ejection fraction of 45-50% with moderate to severe MR and moderate to severe TR. #3 chronic persistent atrial fibrillation on Eliquis for anticoagulation #4 hypothyroidism Plan We will continue current dose of IV Lasix, monitoring intake and output and daily weights, daily lytes BUN and creatinine. We will discontinue the IV heparin and resume the patient's Eliquis which she was taking at home. Decrease aspirin 81 mg daily and resume the patient's metoprolol. Further recommendations to follow. DNP note has been reviewed, I agree with a documented findings and plan of care. Patient was seen and examined.
[2018-05-19] MEDS: APIXABAN 2.5 MG TABLET PO SCH ×2 (12:35→21:12)
--- NOTE | 2018-05-19 13:06 | P.HPIM ---
History of Present Illness This is a pleasant 87 years old male with past medical history of atrial fibrillation's on Eliquis and hypothyroidism, coronary artery disease status post cardiac cath., History of chronic CHF Hyperlipidemia, essential hypertension, he was recently in the hospital about one month ago for possible NSTEMI, and multiple pulmonary nodules including right pulmonary nodule of 1.5 cm, moderate to severe mitral and tricuspid regurgitation. Presents because of dyspnea suspicious for acute on chronic diastolic CHF. With elevated troponins , mostly secondary to type II. This time patient presents because of one week of progressive dyspnea mainly on exertion with no chest pain associated with bilateral leg swelling which was worsening 2. No dizziness or headache. Patient and family are planning to leave the [place] tomorrow for his granddaughter waiting on this coming Thursday. When he went to see the patient he was shaving the restroom and he was coming walking with no difficulties with no exertional shortness of breath and he could talk freely with no interruption. Review of Systems CONSTITUTIONAL: No fever, no malaise, no fatigue. HEENT: No recent visual problems or hearing problems. Denied any sore throat. CARDIOVASCULAR: No orthopnea, PND, no palpitations, no syncope. PULMONARY: No shortness of breath, no cough, no hemoptysis. GASTROINTESTINAL: No diarrhea, no nausea, no vomiting, no abdominal pain. Normoactive bowel sounds. NEUROLOGICAL: No headaches, no weakness, no numbness. HEMATOLOGICAL: Denies any bleeding or petechiae. GENITOURINARY: Denies any burning micturition, frequency, or urgency. MUSCULOSKELETAL/RHEUMATOLOGICAL: Denies any joint pain, swelling, or any muscle pain. ENDOCRINE: Denies any polyuria or polydipsia. Past Medical History Past Medical History: Atrial Fibrillation, Thyroid Disorder Additional Past Medical History / Comment(s): Pt uses straight catheterization , [facility] History of Any Multi-Drug Resistant Organisms: None Reported Past Surgical History: Heart Catheterization, Hernia Repair, Orthopedic Surgery Additional Past Surgical History / Comment(s): left knee replacement, back surgery, prostste surgery Past Psychological History: No Psychological Hx Reported Smoking Status: Former smoker Past Alcohol Use History: None Reported Past Drug Use History: None Reported - Past Family History Father Family Medical History: Cancer Additional Family Medical History / Comment(s): pancreas/liver cancer Daughter(s) Family Medical History: Cancer Additional Family Medical History / Comment(s): 'some sort of GI cancer' Medications and Allergies Home Medications Medication Instructions Recorded Confirmed Type Levothyroxine Sodium [Synthroid] 75 mcg PO DAILY 03/14/18 05/18/18 History Apixaban [Eliquis] 2.5 mg PO BID #60 tablet 03/17/18 05/18/18 Rx Aspirin 81 mg PO DAILY #30 chew 03/17/18 05/18/18 Rx Atorvastatin [Lipitor] 40 mg PO DAILY #30 tab 03/17/18 05/18/18 Rx Furosemide [Lasix] 40 mg PO BID@0900,1600 #60 tab 03/17/18 05/18/18 Rx Metoprolol Tartrate [Lopressor] 25 mg PO BID #60 tab 03/17/18 05/18/18 Rx Nitroglycerin Sl Tabs [Nitrostat] 0.4 mg SUBLINGUAL Q5M PRN #30 tab 03/17/18 Rx Isosorbide Mononitrate ER [Imdur] 15 mg PO DAILY 05/18/18 05/18/18 History Allergies Allergy/AdvReac Type Severity Reaction Status Date / Time No Known Allergies Allergy Verified 05/18/18 19:49 Physical Exam Vitals: Vital Signs Temp Pulse Pulse Resp BP BP Pulse Ox 05/19/18 09:06 97.7 F 75 16 117/72 95 05/19/18 04:00 97.4 F L 54 L 18 129/79 97 05/19/18 00:00 56 L 22 119/56 96 05/18/18 23:07 97.8 F 56 L 20 120/59 94 L 05/18/18 23:00 86 24 130/74 94 L 05/18/18 22:00 68 22 124/95 94 L 05/18/18 21:30 89 20 124/95 93 L 05/18/18 20:30 73 22 146/91 93 L 05/18/18 19:30 71 15 114/75 93 L 05/18/18 19:09 98.2 F 80 16 106/67 97 Intake and Output 05/18/18 05/19/18 05/19/18 22:59 06:59 14:59 Intake Total 480 Output Total 450 650 Balance -450 -170 Intake: Oral 480 Output: Urine 450 650 Other: Voiding Method Self-Catheterization Self-Catheterization Weight 88.451 kg 94 kg GENERAL: The patient is alert and oriented x3, not in any acute distress. Well developed, well nourished. HEENT: Pupils are round and equally reacting to light. EOMI. No scleral icterus. No conjunctival pallor. Normocephalic, atraumatic. No pharyngeal erythema. No thyromegaly. CARDIOVASCULAR: S1 and S2 present. No murmurs, rubs, or gallops. PULMONARY: Chest is clear to auscultation, no wheezing or crackles. ABDOMEN: Soft, nontender, nondistended, normoactive bowel sounds. No palpable organomegaly. MUSCULOSKELETAL: No joint swelling or deformity. EXTREMITIES: No cyanosis, clubbing, or pedal edema. NEUROLOGICAL: Gross neurological examination did not reveal any focal deficits. SKIN: No rashes. Results CBC & Chem 7: 05/18/18 19:41 05/18/18 19:41 Labs: Abnormal Lab Results - Last 24 Hours (Table) 05/18/18 05/18/18 05/18/18 Range/Units 19:41 19:41 19:41 Lymphocytes # 0.8 L (1.0-4.8) k/uL PT (9.0-12.0) sec INR (<1.2) APTT (22.0-30.0) sec Sodium 136 L (137-145) mmol/L BUN 26 H (9-20) mg/dL Glucose 118 H (74-99) mg/dL Total Bilirubin 2.4 H (0.2-1.3) mg/dL AST 63 H (17-59) U/L Alkaline Phosphatase 170 H (38-126) U/L Total Creatine Kinase 293 H (55-170) U/L CK-MB (CK-2) 5.3 H (0.0-2.4) ng/mL Troponin I 0.347 H* (0.000-0.034) ng/mL Ur Leukocyte Esterase (Negative) Urine WBC (0-5) /hpf Urine Bacteria (None) /hpf Hyaline Casts (0-2) /lpf Urine Mucus (None) /hpf 05/18/18 05/18/18 05/19/18 Range/Units 19:41 20:56 01:40 Lymphocytes # (1.0-4.8) k/uL PT 12.7 H (9.0-12.0) sec INR 1.3 H (<1.2) APTT (22.0-30.0) sec Sodium (137-145) mmol/L BUN (9-20) mg/dL Glucose (74-99) mg/dL Total Bilirubin (0.2-1.3) mg/dL AST (17-59) U/L Alkaline Phosphatase (38-126) U/L Total Creatine Kinase 260 H (55-170) U/L CK-MB (CK-2) 4.6 H (0.0-2.4) ng/mL Troponin I 0.411 H* (0.000-0.034) ng/mL Ur Leukocyte Esterase Moderate H (Negative) Urine WBC 16 H (0-5) /hpf Urine Bacteria Few H (None) /hpf Hyaline Casts 7 H (0-2) /lpf Urine Mucus Rare H (None) /hpf 05/19/18 05/19/18 Range/Units 07:28 07:28 Lymphocytes # (1.0-4.8) k/uL PT (9.0-12.0) sec INR (<1.2) APTT 97.5 H (22.0-30.0) sec Sodium (137-145) mmol/L BUN (9-20) mg/dL Glucose (74-99) mg/dL Total Bilirubin (0.2-1.3) mg/dL AST (17-59) U/L Alkaline Phosphatase (38-126) U/L Total Creatine Kinase 225 H (55-170) U/L CK-MB (CK-2) 4.7 H (0.0-2.4) ng/mL Troponin I 0.437 H* (0.000-0.034) ng/mL Ur Leukocyte Esterase (Negative) Urine WBC (0-5) /hpf Urine Bacteria (None) /hpf Hyaline Casts (0-2) /lpf Urine Mucus (None) /hpf Thrombosis Risk Factor Assmnt - Choose All That Apply Each Risk Factor Represents 3 Points: Age 75 years or older Thrombosis Risk Factor Assessment Total Risk Factor Score: 3 Thrombosis Risk Factor Assessment Level: Moderate Risk Assessment and Plan Assessment: acute on chronic diastolic CHF elevated troponins, mostly secondary to type II Moderate to severe mitral and tricuspid regurgitation atrial fibrillation's on Eliquis Hypothyroidism History of coronary artery disease is status post cardiac cath Essential hypertension Hyperlipidemia multiple pulmonary nodules including right pulmonary nodule of 1.5 cm Plan: This is a pleasant 87 years old male who presents because of acute diastolic CHF. Cardiology evaluated the patient. Continue with diuretic and beta marce. Continue with the Eliquis. Labs and medication were resumed. Continue same treatment. Continue with symptomatic treatment. Resume home medication. Monitor lytes and vitals. DVT and GI prophylaxis. Further recommendationsof the clinical course of the patient DVT prophylaxis: On Eliquis GI Prophylaxis: Pepcid Patient looks mobile with no difficulty. Prognosis is guarded Discharge planning in 24-48 hours
[2018-05-19] MEDS ORDERED: FAMOTIDINE 20 MG/2 ML VIAL IV SCH (21:00)
[2018-05-19] MEDS: METOPROLOL TARTRATE 25 MG TAB PO SCH (21:12)
[2018-05-19 22:32] VITALS: RESP 17
[2018-05-20] MEDS ORDERED: LEVOTHYROXINE 75 MCG TAB PO SCH (06:30)
[2018-05-20] MEDS: FUROSEMIDE 10 MG/ML 4 ML VIAL IV SCH (06:35)
[2018-05-20 09:00] VITALS: BP 126/64; PULSE 73; TEMP 97.9
[2018-05-20] MEDS ORDERED: ATORVASTATIN 40 MG TAB PO SCH (09:00)
[2018-05-20] MEDS: APIXABAN 2.5 MG TABLET PO SCH (09:00)
[2018-05-20] MEDS ORDERED: FAMOTIDINE 20 MG/2 ML VIAL IV SCH (09:00)
[2018-05-20] MEDS ORDERED: ASPIRIN 81 MG PO SCH (09:00)
[2018-05-20] MEDS: METOPROLOL TARTRATE 25 MG TAB PO SCH (09:01)
--- NOTE | 2018-05-20 10:27 | P.DS ---
Providers Date of admission: 05/18/18 22:29 Attending physician: Peggy Maldonado Consults: 05/19/18 07:41 Consult Physician Stat Consulting Provider: Ayan Argueta Consult Reason/Comments: chf nstemi Do you want consulting provider notified?: Yes Primary care physician: Angie Palomares [facility] Course: This is a pleasant 87 years old male with past medical history of atrial fibrillation's on Eliquis and hypothyroidism, coronary artery disease status post cardiac cath., History of chronic CHF Hyperlipidemia, essential hypertension, he was recently in the hospital about one month ago for possible NSTEMI, and multiple pulmonary nodules including right pulmonary nodule of 1.5 cm, moderate to severe mitral and tricuspid regurgitation. Presents because of dyspnea suspicious for acute on chronic diastolic CHF. With elevated troponins , mostly secondary to type II. This time patient presents because of one week of progressive dyspnea mainly on exertion with no chest pain associated with bilateral leg swelling which was worsening 2. No dizziness or headache. Patient and family are planning to leave the [place] tomorrow for his granddaughter waiting on this coming Thursday. When he went to see the patient he was shaving the restroom and he was coming walking with no difficulties with no exertional shortness of breath and he could talk freely with no interruption. Patient was treated with diuretics Lasix 40 mg every 8 hours. Patient showed interval improvement and on the day of discharge patient denies any dyspnea. No chest pain. No change in bowel habits. No fever. Patient wants to be discharged home because he has limited to catch up his trip to [place] for his granddaughter in 2-3 days. Patient has been evaluated by java scala developer and cleared for discharge. Patient does feel stable and can be discharged home. Problems and management plan was discussed with the patient and he verbalized understanding and acceptance. Patient is found stable and can be discharged home in correct prognosis. However he needs follow-up as an outpatient. Gen: patient is a AAOx3, no distress CVS: S1-S2, RRR, no murmur Lungs: B/L CTA, no wheezing Abdomen: soft, no distention, no tenderness, positive bowel sounds Extremity: no induration, still has bilateral leg swelling but is improving Time spent more than 35 minutes Patient Condition at Discharge: Stable Plan - Discharge Summary Discharge Rx Participant: No New Discharge Prescriptions: No Action Levothyroxine Sodium [Synthroid] 75 mcg PO DAILY Apixaban [Eliquis] 2.5 mg PO BID #60 tablet Aspirin 81 mg PO DAILY #30 chew Atorvastatin [Lipitor] 40 mg PO DAILY #30 tab Metoprolol Tartrate [Lopressor] 25 mg PO BID #60 tab Nitroglycerin Sl Tabs [Nitrostat] 0.4 mg SUBLINGUAL Q5M PRN #30 tab PRN Reason: Chest Pain Furosemide [Lasix] 40 mg PO BID@0900,1600 #60 tab Isosorbide Mononitrate ER [Imdur] 15 mg PO DAILY Discharge Medication List Levothyroxine Sodium [Synthroid] 75 mcg PO DAILY 03/14/18 [History] Apixaban [Eliquis] 2.5 mg PO BID #60 tablet 03/17/18 [Rx] Aspirin 81 mg PO DAILY #30 chew 03/17/18 [Rx] Atorvastatin [Lipitor] 40 mg PO DAILY #30 tab 03/17/18 [Rx] Furosemide [Lasix] 40 mg PO BID@0900,1600 #60 tab 03/17/18 [Rx] Metoprolol Tartrate [Lopressor] 25 mg PO BID #60 tab 03/17/18 [Rx] Nitroglycerin Sl Tabs [Nitrostat] 0.4 mg SUBLINGUAL Q5M PRN #30 tab 03/17/18 [Rx ] Isosorbide Mononitrate ER [Imdur] 15 mg PO DAILY 05/18/18 [History] Follow up Appointment(s)/Referral(s): Angie Palomares MD [Primary Care Provider] - 05/26/18 12:30 pm Cole Bucio MD [STAFF PHYSICIAN] - 1 Week Patient Instructions/Handouts: Heart Failure (DC), Heart Healthy Diet (DC)
--- NOTE | 2018-05-20 11:21 | PN ---
PROGRESS NOTE Mr. Sanchez is an 87-year-old male who presented with symptoms of dyspnea and worsening peripheral edema. He is followed by Dr. Bucio on a regular basis, has a mildly impaired left ventricular systolic function with significant mitral regurgitation and tricuspid regurgitation. He has diffuse coronary artery disease. He is feeling much better today. His breathing is stable. He is denying any symptoms of chest pain. He denies any dizziness, palpitation. He denies any nausea. He is anxious to go home to attend his granddaughter's wedding in [place]. He continues to be on Eliquis 2.5 mg twice a day, aspirin once a day, Lipitor 40 mg daily, Lasix 40 mg IV q.8 hours, metoprolol tartrate 25 mg twice a day, levothyroxine. PHYSICAL EXAMINATION: Blood pressure 126/60 with a heart rate in the 70s. LUNGS: No wheezes. HEART: Irregular, regular. S1, S2. No S3 with a holosystolic murmur at the apex. No diastolic murmur, no rub. ABDOMEN: Soft, nontender. EXTREMITIES: Trace to 1+ edema. LAB DATA: Revealed BUN and creatinine 26 and 1.21. Hemoglobin of 13.3. IMPRESSION: 1. Worsening congestive heart failure in a patient with preserved systolic function and significant valvular disease. 2. History of coronary artery disease. 3. Mild troponin elevation, most likely related to a type 2 event. 4. Persistent chronic atrial fibrillation. RECOMMENDATION: From the cardiac standpoint, he should be able to be discharged home today. I will stop his IV Lasix and switch him to 60 mg orally twice a day. I have discussed with him the importance of salt intake. He will follow up with Dr. Bucio on a regular basis. MMODL / IJN: [id number] /
[2018-05-20] MEDS ORDERED: FUROSEMIDE 20 MG TAB PO SCH (21:00)
== END 2018-05-20 11:52 | disposition home or self-care (01) | DRG 293 ==
LOC: EC 19:06 → 3SCARD 22:29
PROVIDERS: ADMIT Internal Medicine; ATTEND Internal Medicine
DX: I11.0 Hypertensive heart disease with heart failure (principal); I08.1 Rheumatic disorders of both mitral and tricuspid valves; I48.2 Chronic atrial fibrillation; I50.33 Acute on chronic diastolic (congestive) heart failure; E03.9 Hypothyroidism, unspecified; E78.5 Hyperlipidemia, unspecified; I25.10 Atherosclerotic heart disease of native coronary artery without angina pectoris; R77.9 Abnormality of plasma protein, unspecified; R91.8 Other nonspecific abnormal finding of lung field; Z79.82 Long term (current) use of aspirin; Z79.899 Other long term (current) drug therapy; Z79.01 Long term (current) use of anticoagulants; Z79.890 Hormone replacement therapy; Z96.652 Presence of left artificial knee joint; Z87.891 Personal history of nicotine dependence; Z80.0 Family history of malignant neoplasm of digestive organs
CPT/HCPCS: 36415; 71046; 80053; 80061; 81001; 82150; 82550; 82553; 83690; 83735; 83880; 84484; 85025; 85610; 85730; 96361; 96365; 96375; 96376; 99285

== ENCOUNTER 2018-07-02 23:01 | Inpatient (IN) | payer MEDICARE ==
[2018-07-03 01:02] LABS: Basophils % (A) 0 %; Eosinophils # (A) 0.2 k/uL (0-0.7); Eosinophils % (A) 3 %; HGB 14.4 gm/dL (13.0-17.5); Lymphocytes # (A) 0.7 k/uL (1.0-4.8); Lymphocytes % (A) 12 %; MCH 29.6 pg (25.0-35.0); MCHC 32.7 g/dL (31.0-37.0); MCV 90.5 fL (80.0-100.0); Mean Platelet Volume 7.7; Monocytes # (A) 0.4 k/uL (0-1.0); Monocytes % (A) 7 %; Neutrophils # (A) 3.9 k/uL (1.3-7.7); Neutrophils % (A) 74 %; Platelet Count 128 k/uL (150-450); RBC 4.87 m/uL (4.30-5.90); RDW 15.9 % (11.5-15.5); WBC 5.2 k/uL (3.8-10.6)
--- NOTE | 2018-07-03 01:09 | ED ---
General Adult HPI - General Source: patient Mode of arrival: wheelchair Limitations: no limitations <Laura Marin - Last Filed: 07/03/18 03:43> <Kaelyn Main - Last Filed: 07/09/18 02:49> - General Chief complaint: Recheck/Abnormal Lab/Rx Stated complaint: Retaining water Time Seen by Provider: 07/02/18 23:35 - History of Present Illness Initial comments: 87-year-old male patient presents to the emergency department today for evaluation of increased abdominal and lower extremity swelling. Patient states that he does have history of congestive heart failure, does take 60 mg of Lasix twice a day. Patient states over the last 24-48 hours he has been expands and increased swelling to the abdomen and legs. Patient states that his scrotum is also quite swollen. States he did take an additional 20 mg of Lasix twice yesterday. States that he did lose a pound overnight however he still feels very uncomfortable and swollen. He denies any chest pain, shortness of breath, or orthopnea. Denies any dyspnea with physical activity. Patient states that he feels he has been urinating less than usual. Denies any fevers or chills. Denies any significant abdominal pain. States bowel movements have been normal. He has had decreased appetite. Patient denies any recent rash, fever, chills, nausea, vomiting, back pain, numbness, tingling, dizziness, weakness, hematuria, dysuria, urinary urgency, urinary frequency, headache, visual changes , or any other complaints. (Laura Marin) - Related Data Home Medications Medication Instructions Recorded Confirmed Isosorbide Mononitrate ER [Imdur] 15 mg PO DAILY 05/18/18 07/03/18 Levothyroxine Sodium [Synthroid] 100 mcg PO DAILY 07/03/18 07/03/18 Previous Rx's Medication Instructions Recorded Apixaban [Eliquis] 2.5 mg PO BID #60 tablet 03/17/18 Aspirin 81 mg PO DAILY #30 chew 03/17/18 Atorvastatin [Lipitor] 40 mg PO DAILY #30 tab 03/17/18 Metoprolol Tartrate [Lopressor] 25 mg PO BID #60 tab 03/17/18 Nitroglycerin Sl Tabs [Nitrostat] 0.4 mg SUBLINGUAL Q5M PRN #30 tab 03/17/18 Spironolactone [Aldactone] 25 mg PO DAILY #90 tab 07/05/18 Furosemide [Lasix] 40 mg PO BID@0900,1600 #60 tab 07/08/18 Allergies Allergy/AdvReac Type Severity Reaction Status Date / Time No Known Allergies Allergy Verified 07/03/18 08:05 Review of Systems ROS Other: All systems not noted in ROS Statement are negative. <Laura Marin - Last Filed: 07/03/18 03:43> ROS Other: All systems not noted in ROS Statement are negative. <Kaelyn Main - Last Filed: 07/09/18 02:49> ROS Statement: Those systems with pertinent positive or pertinent negative responses have been documented in the HPI. Past Medical History Past Medical History: Atrial Fibrillation, Heart Failure, Hearing Disorder / Deafness, Thyroid Disorder Additional Past Medical History / Comment(s): Pt uses straight catheterization , LEAKY HEART VALVES History of Any Multi-Drug Resistant Organisms: None Reported Past Surgical History: Heart Catheterization, Hernia Repair, Orthopedic Surgery Additional Past Surgical History / Comment(s): left knee replacement, back surgery, prostste surgery Past Psychological History: No Psychological Hx Reported Smoking Status: Former smoker Past Alcohol Use History: None Reported Past Drug Use History: None Reported - Past Family History Father Family Medical History: Cancer Additional Family Medical History / Comment(s): pancreas/liver cancer Daughter(s) Family Medical History: Cancer Additional Family Medical History / Comment(s): 'some sort of GI cancer' <Laura Marin - Last Filed: 07/03/18 03:43> General Exam Limitations: no limitations General appearance: alert, in no apparent distress, other (This is a well- developed, well-nourished elderly male patient in no acute distress. Vital signs upon presentation are temperature 98.3F, pulse 83, respirations 17, blood pressure 92/49, pulse ox 95% on room air.) Eye exam: Present: normal appearance, PERRL, EOMI. Absent: scleral icterus, conjunctival injection, periorbital swelling ENT exam: Present: normal exam, normal oropharynx, mucous membranes moist Respiratory exam: Present: normal lung sounds bilaterally. Absent: respiratory distress, wheezes, rales, rhonchi, stridor Cardiovascular Exam: Present: regular rate, normal rhythm, normal heart sounds. Absent: systolic murmur, diastolic murmur, rubs, gallop, clicks GI/Abdominal exam: Present: soft, distended (=), normal bowel sounds. Absent: tenderness, guarding, rebound, rigid Extremities exam: Present: normal inspection, full ROM, normal capillary refill , pedal edema, other (Patient has 3+ pitting edema to the lower extremities and feet.). Absent: tenderness, joint swelling, calf tenderness Neurological exam: Present: alert, oriented X3, CN II-XII intact Psychiatric exam: Present: normal affect, normal mood Skin exam: Present: warm, dry, intact, normal color. Absent: rash <Laura Marin - Last Filed: 07/03/18 03:43> Vital Signs 07/02/18 07/03/18 07/03/18 23:28 00:00 01:00 Temperature 98.3 F Pulse Rate 83 61 63 Respiratory 17 18 13 Rate Blood Pressure 92/49 115/86 103/71 O2 Sat by Pulse 95 90 L 95 Oximetry 07/03/18 07/03/18 07/03/18 01:55 02:00 03:00 Temperature 98.0 F Pulse Rate 65 68 Respiratory 20 14 30 H Rate Blood Pressure 118/89 118/89 O2 Sat by Pulse 95 93 L 95 Oximetry 07/03/18 07/03/18 04:00 05:00 Temperature Pulse Rate 72 71 Respiratory 18 13 Rate Blood Pressure 102/72 102/72 O2 Sat by Pulse 95 92 L Oximetry Medical Decision Making - Lab Data Result diagrams: 07/03/18 00:37 07/03/18 00:37 - Radiology Data Radiology results: report reviewed, image reviewed <Laura Marin - Last Filed: 07/03/18 03:43> - Lab Data Result diagrams: 07/06/18 10:06 07/08/18 07:20 <Kaelyn Main - Last Filed: 07/09/18 02:49> - Medical Decision Making 87-year-old male patient presents to the emergency department today with complaints of increased swelling to his abdomen and lower extremities. Physical examination did reveal 2+ pitting edema to the lower extremities. Lungs are clear to auscultation. Labs reviewed and did reveal sodium of 135, potassium 3.3, BUN 31, creatinine 1.49, elevated AST at 113, total bili 3.7. BNP was 10,600, TSH 11.5. Urinalysis did show small amount of blood, large leukocyte esterase, 30 white blood cells, many bacteria, 33 hyaline casts, rare urine mucus. Chest x-ray shows no evidence of heart failure but there is small bilateral pleural effusions. Patient will be admitted to the hospital heart failure protocol, IV Lasix ordered. We will consult cardiology. Patient is aware of all results and plan, he is agreeable. (Laura Marin) I personally saw and examined the patient. I reviewed and agree with the mid- level provider findings including all diagnostic interpretations and treatment plans as written unless otherwise stated. Admission orders placed (Kaelyn Main) - Lab Data Lab Results 07/03/18 07/03/18 07/03/18 Range/Units 00:37 00:37 00:37 WBC 5.2 (3.8-10.6) k/uL RBC 4.87 (4.30-5.90) m/uL Hgb 14.4 (13.0-17.5) gm/dL Hct 44.0 (39.0-53.0) % MCV 90.5 (80.0-100.0) fL MCH 29.6 (25.0-35.0) pg MCHC 32.7 (31.0-37.0) g/dL RDW 15.9 H (11.5-15.5) % Plt Count 128 L (150-450) k/uL Neutrophils % 74 % Lymphocytes % 12 % Monocytes % 7 % Eosinophils % 3 % Basophils % 0 % Neutrophils # 3.9 (1.3-7.7) k/uL Lymphocytes # 0.7 L (1.0-4.8) k/uL Monocytes # 0.4 (0-1.0) k/uL Eosinophils # 0.2 (0-0.7) k/uL Basophils # 0.0 (0-0.2) k/uL PT (9.0-12.0) sec INR (<1.2) APTT (22.0-30.0) sec Sodium 135 L (137-145) mmol/L Potassium 3.3 L (3.5-5.1) mmol/L Chloride 95 L (98-107) mmol/L Carbon Dioxide 30 (22-30) mmol/L Anion Gap 10 mmol/L BUN 31 H (9-20) mg/dL Creatinine 1.49 H (0.66-1.25) mg/dL Est GFR (CKD-EPI)AfAm 48 (>60 ml/min/1.73 sqM) Est GFR (CKD-EPI)NonAf 42 (>60 ml/min/1.73 sqM) Glucose 98 (74-99) mg/dL Calcium 9.0 (8.4-10.2) mg/dL Total Bilirubin 3.7 H (0.2-1.3) mg/dL AST 113 H (17-59) U/L ALT 72 (21-72) U/L Alkaline Phosphatase 177 H (38-126) U/L NT-Pro-B Natriuret Pep 53666 pg/mL Total Protein 6.6 (6.3-8.2) g/dL Albumin 3.6 (3.5-5.0) g/dL TSH 11.500 H (0.465-4.680) mIU/L Free T4 (0.78-2.19) ng/dL Urine Color Urine Appearance (Clear) Urine pH (5.0-8.0) Ur Specific Pritchett (1.001-1.035) Urine Protein (Negative) Urine Glucose (UA) (Negative) Urine Ketones (Negative) Urine Blood (Negative) Urine Nitrite (Negative) Urine Bilirubin (Negative) Urine Urobilinogen (<2.0) mg/dL Ur Leukocyte Esterase (Negative) Urine RBC (0-5) /hpf Urine WBC (0-5) /hpf Ur Squamous Epith Cells (0-4) /hpf Urine Bacteria (None) /hpf Hyaline Casts (0-2) /lpf Urine Mucus (None) /hpf 07/03/18 07/03/18 07/03/18 Range/Units 00:37 00:37 01:45 WBC (3.8-10.6) k/uL RBC (4.30-5.90) m/uL Hgb (13.0-17.5) gm/dL Hct (39.0-53.0) % MCV (80.0-100.0) fL MCH (25.0-35.0) pg MCHC (31.0-37.0) g/dL RDW (11.5-15.5) % Plt Count (150-450) k/uL Neutrophils % % Lymphocytes % % Monocytes % % Eosinophils % % Basophils % % Neutrophils # (1.3-7.7) k/uL Lymphocytes # (1.0-4.8) k/uL Monocytes # (0-1.0) k/uL Eosinophils # (0-0.7) k/uL Basophils # (0-0.2) k/uL PT 13.5 H (9.0-12.0) sec INR 1.3 H (<1.2) APTT 31.9 H (22.0-30.0) sec Sodium (137-145) mmol/L Potassium (3.5-5.1) mmol/L Chloride (98-107) mmol/L Carbon Dioxide (22-30) mmol/L Anion Gap mmol/L BUN (9-20) mg/dL Creatinine (0.66-1.25) mg/dL Est GFR (CKD-EPI)AfAm (>60 ml/min/1.73 sqM) Est GFR (CKD-EPI)NonAf (>60 ml/min/1.73 sqM) Glucose (74-99) mg/dL Calcium (8.4-10.2) mg/dL Total Bilirubin (0.2-1.3) mg/dL AST (17-59) U/L ALT (21-72) U/L Alkaline Phosphatase (38-126) U/L NT-Pro-B Natriuret Pep pg/mL Total Protein (6.3-8.2) g/dL Albumin (3.5-5.0) g/dL TSH (0.465-4.680) mIU/L Free T4 2.03 (0.78-2.19) ng/dL Urine Color Yellow Urine Appearance Clear (Clear) Urine pH 6.0 (5.0-8.0) Ur Specific [place]tt 1.011 (1.001-1.035) Urine Protein Trace H (Negative) Urine Glucose (UA) Negative (Negative) Urine Ketones Negative (Negative) Urine Blood Small H (Negative) Urine Nitrite Negative (Negative) Urine Bilirubin Negative (Negative) Urine Urobilinogen 2.0 (<2.0) mg/dL Ur Leukocyte Esterase Large H (Negative) Urine RBC 3 (0-5) /hpf Urine WBC 30 H (0-5) /hpf Ur Squamous Epith Cells 2 (0-4) /hpf Urine Bacteria Many H (None) /hpf Hyaline Casts 33 H (0-2) /lpf Urine Mucus Rare H (None) /hpf - Radiology Data Two-view x-ray of the chest is obtained. Report was reviewed in its entirety. Impression by Dr. Martinez shows small pleural effusions or pleural diaphragmatic scarring without change. No heart failure. Old granulomatous disease. Moderate cardiomegaly. (Laura Marin) Disposition Decision to Admit Reason: Admit from EC Decision Date: 07/03/18 Decision Time: 03:26 <Laura Marin - Last Filed: 07/03/18 03:43> <Kaelyn Main - Last Filed: 07/09/18 02:49> Clinical Impression: CHF (congestive heart failure), Urinary tract infection Disposition: ADMITTED IP TO THIS HOSP Condition: Serious Addendum entered and electronically signed by Laura Marin, [employer] SALESPERSON-BC, AGACNP -BC 07/03/18 17:25: EKG DOCUMENTATION: EKG obtained at 00 42 shows atrial fibrillation ventricular rate of 68, QRS duration 106, QT 458, QTC 487. No evidence of ST elevation or depression, QRS is widened.
[2018-07-03 01:13] LABS: Albumin 3.6 g/dL (3.5-5.0); Potassium 3.3 mmol/L (3.5-5.1); Total Bilirubin 3.7 mg/dL (0.2-1.3); Total Protein 6.6 g/dL (6.3-8.2)
[2018-07-03 01:16] LABS: INR 1.3 (<1.2); Partial Thromboplastin Time 31.9 sec (22.0-30.0); Prothrombin Time 13.5 sec (9.0-12.0)
--- NOTE | 2018-07-03 01:29 | XR ---
EXAMINATION TYPE: XR chest 2V DATE OF EXAM: 07/03/2018 COMPARISON: 05/08/2018 HISTORY: Retaining water TECHNIQUE: Frontal and lateral views of the chest are obtained. FINDINGS: Heart is enlarged. There is slight blunting of costophrenic angles. There is a 1.5 cm nodu lar density in the lateral right lower lobe there is quite dense and is a calcifying granuloma. Thora cic aorta is atheromatous. There is no heart failure. Bony thorax is intact. IMPRESSION: Small pleural effusions or pleural diaphragmatic scarring without change. No heart failu re. Old granulomatous disease. Moderate cardiomegaly.
[2018-07-03 02:12] LABS: Appearance,Urine Clear (Clear); Bacteria,Urine Many /hpf; Bilirubin,Urine Negative (Negative); Blood,Urine Small (Negative); Color,Urine Yellow; Glucose,Urine (UA) Negative (Negative); Hyaline Casts,Urine 33 /lpf (0-2); Ketones,Urine Negative (Negative); Leukocyte Esterase,Urine Large (Negative); Mucus,Urine Rare /hpf; Nitrite,Urine Negative (Negative); Protein,Urine Trace (Negative); RBC,Urine 3 /hpf (0-5); Specific Gravity,Urine 1.011 (1.001-1.035); Squamous Epithelial Cell,Urine 2 /hpf (0-4); WBC,Urine 30 /hpf (0-5)
[2018-07-03] MEDS: FUROSEMIDE 10 MG/ML 4 ML VIAL IV SCH ×3 (03:26→17:42)
[2018-07-03] MEDS ORDERED: LEVOTHYROXINE 75 MCG TAB PO SCH (06:30)
[2018-07-03 08:38] LABS: Creatine Kinase MB 5.2 ng/mL (0.0-2.4)
[2018-07-03 08:52] LABS: Troponin I 0.494 ng/mL (0.000-0.034)
--- NOTE | 2018-07-03 10:01 | ECHOF ---
Referral Reason:Heart Failure MEASUREMENTS -------- HEIGHT: 180.3 cm WEIGHT: 86.2 kg BP: 102/72 RVIDd: 4.2 cm (< 3.3) IVSd: 1.6 cm (0.6 - 1.1) LVIDd: 3.3 cm (3.9 - 5.3) LVPWd: 2.0 cm (0.6 - 1.1) IVSs: 2.2 cm LVIDs: 2.4 cm LVPWs: 2.2 cm LAESV Index (A-L): 35.75 ml/m Ao Diam: 3.1 cm (2.0 - 3.7) AV Cusp: 2.0 cm (1.5 - 2.6) LA Diam: 3.6 cm (2.7 - 3.8) MV EXCURSION: 13.883 mm (> 18.000) MV EF SLOPE: 73 mm/s (70 - 150) EPSS: 0.2 cm MV E Chencho: 0.86 m/s MV DecT: 254 ms MV A Chencho: 0.30 m/s MV E/A Ratio: 2.88 RAP: 15.00 mmHg RVSP: 24.31 mmHg FINDINGS -------- Sinus rhythm with extra systolic beats. This was a technically good study. The cavity size is decreased. There is severe concentric left ventricular hypertrophy. Overall le ft ventricular systolic function is normal with, an EF between 60 - 65 %. The right ventricle is moderately enlarged. LA is moderately dilated 34-39 ml/m2 The right atrium is mildly enlarged. Aortic valve is trileaflet and is mildly thickened. The mitral valve leaflets are mildly thickened. Mild mitral annular calcification present. Mild m itral regurgitation is present. The tricuspid valve appears myxomatous. Severe tricuspid regurgitation present. The right ventric ular systolic pressure, as measured by Doppler, is 24.31mmHg. Tricuspid Valve is apically displaced. ? Ebstein's Pulmonic valve appears structurally normal. The aortic root size is normal. The inferior vena cava is mildly dilated. There is a trivial pericardial effusion present. CONCLUSIONS -------- 1. Sinus rhythm with extra systolic beats. 2. This was a technically good study. 3. The cavity size is decreased. 4. There is severe concentric left ventricular hypertrophy. 5. Overall left ventricular systolic function is normal with, an EF between 60 - 65 %. 6. The right ventricle is moderately enlarged. 7. LA is moderately dilated 34-39 ml/m2 8. The right atrium is mildly enlarged. 9. Aortic valve is trileaflet and is mildly thickened. 10. The mitral valve leaflets are mildly thickened. 11. Mild mitral annular calcification present. 12. Mild mitral regurgitation is present. 13. The tricuspid valve appears myxomatous. 14. Severe tricuspid regurgitation present. 15. The right ventricular systolic pressure, as measured by Doppler, is 24.31mmHg. 16. Pulmonic valve appears structurally normal. 17. The aortic root size is normal. 18. The inferior vena cava is mildly dilated. 19. There is a trivial pericardial effusion present. TAXATION ACCOUNTANT: Traci Godinez RDCS
[2018-07-03] MEDS: APIXABAN 2.5 MG TABLET PO SCH ×2 (10:09→21:17)
[2018-07-03] MEDS: ASPIRIN 81 MG PO SCH (10:09)
[2018-07-03] MEDS: METOPROLOL TARTRATE 25 MG TAB PO SCH ×2 (10:09→21:17)
[2018-07-03] MEDS: ATORVASTATIN 40 MG TAB PO SCH (10:09)
--- NOTE | 2018-07-03 12:51 | P.HPIM ---
History of Present Illness This is a pleasant 87 years old male with past medical history of congestive heart failure, atrial fibrillation on eliquis, hypothyroidism, hearing disorder , deafness status post cardiac cath. He presents because of increasing swelling in his both lower, scrotum and waist over 3-4 days , no chest pain or dyspnea In the emergency room Vitas looks stable and saturation 92% on room air. CBC was artery: Whole except for low platelets at 1.8. INR 1.3. Sodium 135. Potassium 3.3. Creatinine 1.49, with baseline 0.9-1.2. Urine suspicious for infection. Urine culture sent chest x-ray shows small pleural effusion with no heart failure. Echocardiogram done today showing ejection fraction 60-65% with severe left ventricular hypertrophy, dilated LA, with severe tricuspid regurgitation and right ventricular systolic pressure of 24. Review of Systems CONSTITUTIONAL: No fever, no malaise, no fatigue. HEENT: No recent visual problems or hearing problems. Denied any sore throat. CARDIOVASCULAR: No orthopnea, PND, no palpitations, no syncope. PULMONARY: No shortness of breath, no cough, no hemoptysis. GASTROINTESTINAL: No diarrhea, no nausea, no vomiting, no abdominal pain. Normoactive bowel sounds. NEUROLOGICAL: No headaches, no weakness, no numbness. HEMATOLOGICAL: Denies any bleeding or petechiae. GENITOURINARY: Denies any burning micturition, frequency, or urgency. MUSCULOSKELETAL/RHEUMATOLOGICAL: Denies any joint pain, swelling, or any muscle pain. ENDOCRINE: Denies any polyuria or polydipsia. Past Medical History Past Medical History: Atrial Fibrillation, Heart Failure, Hearing Disorder / Deafness, Thyroid Disorder Additional Past Medical History / Comment(s): Pt uses straight catheterization , LEAKY HEART VALVES History of Any Multi-Drug Resistant Organisms: None Reported Past Surgical History: Heart Catheterization, Hernia Repair, Orthopedic Surgery Additional Past Surgical History / Comment(s): left knee replacement, back surgery, prostste surgery Past Psychological History: No Psychological Hx Reported Smoking Status: Never smoker Past Alcohol Use History: None Reported Past Drug Use History: None Reported - Past Family History Father Family Medical History: Cancer Additional Family Medical History / Comment(s): pancreas/liver cancer Daughter(s) Family Medical History: Cancer Additional Family Medical History / Comment(s): 'some sort of GI cancer' Medications and Allergies Home Medications Medication Instructions Recorded Confirmed Type Apixaban [Eliquis] 2.5 mg PO BID #60 tablet 03/17/18 07/03/18 Rx Aspirin 81 mg PO DAILY #30 chew 03/17/18 07/03/18 Rx Atorvastatin [Lipitor] 40 mg PO DAILY #30 tab 03/17/18 07/03/18 Rx Metoprolol Tartrate [Lopressor] 25 mg PO BID #60 tab 03/17/18 07/03/18 Rx Nitroglycerin Sl Tabs [Nitrostat] 0.4 mg SUBLINGUAL Q5M PRN #30 tab 03/17/18 Rx Isosorbide Mononitrate ER [Imdur] 15 mg PO DAILY 05/18/18 07/03/18 History Furosemide [Lasix] 60 mg PO BID #180 tab 05/20/18 07/03/18 Rx Levothyroxine Sodium [Synthroid] 100 mcg PO DAILY 07/03/18 07/03/18 History Allergies Allergy/AdvReac Type Severity Reaction Status Date / Time No Known Allergies Allergy Verified 07/03/18 08:05 Physical Exam Vitals: Vital Signs Temp Pulse Pulse Resp BP BP Pulse Ox 07/03/18 09:13 98.2 F 84 16 102/58 92 L 07/03/18 05:00 71 13 102/72 92 L 07/03/18 04:00 72 18 102/72 95 07/03/18 03:00 30 H 95 07/03/18 02:00 68 14 118/89 93 L 07/03/18 01:55 98.0 F 65 20 118/89 95 07/03/18 01:00 63 13 103/71 95 07/03/18 00:00 61 18 115/86 90 L 07/02/18 23:28 98.3 F 83 17 92/49 95 Intake and Output 07/02/18 07/03/18 07/03/18 22:59 06:59 14:59 Intake Total 70 240 Output Total 300 Balance -230 240 Intake: Amount of Fluid Infused ( 70 ml) Oral 240 Output: Urine 300 Other: Voiding Method Self-Catheterization Weight 86.273 kg 89.6 kg GENERAL: The patient is alert and oriented x3, not in any acute distress. Well developed, well nourished. HEENT: Pupils are round and equally reacting to light. EOMI. No scleral icterus. No conjunctival pallor. Normocephalic, atraumatic. No pharyngeal erythema. No thyromegaly. CARDIOVASCULAR: S1 and S2 present. No murmurs, rubs, or gallops. PULMONARY: Chest is clear to auscultation, no wheezing or crackles. ABDOMEN: Soft, nontender, nondistended, normoactive bowel sounds. No palpable organomegaly. MUSCULOSKELETAL: No joint swelling or deformity. EXTREMITIES: No cyanosis, clubbing, or pedal edema. NEUROLOGICAL: Gross neurological examination did not reveal any focal deficits. SKIN: No rashes. Results CBC & Chem 7: 07/03/18 00:37 07/03/18 00:37 Labs: Abnormal Lab Results - Last 24 Hours (Table) 07/03/18 07/03/18 07/03/18 Range/Units 00:37 00:37 00:37 RDW 15.9 H (11.5-15.5) % Plt Count 128 L (150-450) k/uL Lymphocytes # 0.7 L (1.0-4.8) k/uL PT 13.5 H (9.0-12.0) sec INR 1.3 H (<1.2) APTT 31.9 H (22.0-30.0) sec Sodium 135 L (137-145) mmol/L Potassium 3.3 L (3.5-5.1) mmol/L Chloride 95 L (98-107) mmol/L BUN 31 H (9-20) mg/dL Creatinine 1.49 H (0.66-1.25) mg/dL Total Bilirubin 3.7 H (0.2-1.3) mg/dL AST 113 H (17-59) U/L Alkaline Phosphatase 177 H (38-126) U/L CK-MB (CK-2) (0.0-2.4) ng/mL Troponin I (0.000-0.034) ng/mL TSH 11.500 H (0.465-4.680) mIU/L Urine Protein (Negative) Urine Blood (Negative) Ur Leukocyte Esterase (Negative) Urine WBC (0-5) /hpf Urine Bacteria (None) /hpf Hyaline Casts (0-2) /lpf Urine Mucus (None) /hpf 07/03/18 07/03/18 Range/Units 01:45 07:30 RDW (11.5-15.5) % Plt Count (150-450) k/uL Lymphocytes # (1.0-4.8) k/uL PT (9.0-12.0) sec INR (<1.2) APTT (22.0-30.0) sec Sodium (137-145) mmol/L Potassium (3.5-5.1) mmol/L Chloride (98-107) mmol/L BUN (9-20) mg/dL Creatinine (0.66-1.25) mg/dL Total Bilirubin (0.2-1.3) mg/dL AST (17-59) U/L Alkaline Phosphatase (38-126) U/L CK-MB (CK-2) 5.2 H (0.0-2.4) ng/mL Troponin I 0.494 H* (0.000-0.034) ng/mL TSH (0.465-4.680) mIU/L Urine Protein Trace H (Negative) Urine Blood Small H (Negative) Ur Leukocyte Esterase Large H (Negative) Urine WBC 30 H (0-5) /hpf Urine Bacteria Many H (None) /hpf Hyaline Casts 33 H (0-2) /lpf Urine Mucus Rare H (None) /hpf Microbiology - Last 24 Hours (Table) 07/03/18 01:45 Urine Culture - Preliminary Urine,Voided Thrombosis Risk Factor Assmnt - Choose All That Apply Each Risk Factor Represents 3 Points: Age 75 years or older Thrombosis Risk Factor Assessment Total Risk Factor Score: 3 Thrombosis Risk Factor Assessment Level: Moderate Risk Assessment and Plan Assessment: Acute on chronic diastolic CHF Severe tricuspid regurgitation Dilated left atrium Thrombocytopenia Acute kidney injury Mild electrolyte abnormality of hyponatremia and hypokalemia Plan: This is a pleasant 87 years old male who presents because of acute diastolic CHF. Continue with diuresis. Cardiology consult. Labs and medication were reviewed.. Continue same treatment. Continue with symptomatic treatment. Resume home medication. Monitor lytes and vitals. DVT and GI prophylaxis. Further recommendations of the clinical course of the patient DVT prophylaxis: Subcutaneous heparin GI Prophylaxis: Pepcid PT/OT: Pending Prognosis is guarded
[2018-07-03] MEDS ORDERED: POTASSIUM CHLORIDE ER 20 MEQ TAB.ER PO STA (13:28)
--- NOTE | 2018-07-03 13:30 | P.CRDCN ---
History of Present Illness Consult date: 07/03/18 Reason for Consult (text): Heart failure History of present illness: This is a pleasant 87-year-old gentleman who follows regularly with Dr. Bucio in the office. Patient has history of prior congestive cardiac failure with his most recent admission being in February of this year, at which time an echocardiogram with Doppler study was performed which revealed an ejection fraction of 45-50%, moderate to severe mitral regurg and moderate to severe tricuspid regurg noted at that time. Patient also underwent a cardiac catheterization in February by Dr. Bucio which revealed diffuse coronary artery disease with an intermediate lesion in the LAD in the proximal and midportion, right coronary artery and circumflex were free of any disease, and medical therapy was advised at that time. Patient states that he has been instructed by Dr. Bucio to increase his Lasix at home when he feels he is filling up with fluid. Patient states that yesterday he thought he was holding fluid and was taking his prescribed Lasix at 60 mg twice daily. Yesterday he increased it to 80 mg twice daily and he did lose weight but he still felt that he was full of fluid. He came into [facility] emergency center for evaluation. He denies having any chest pain, shortness of breath, orthopnea. No PND. He has been started on Lasix 40 mg IV every 8 hours and states he has been urinating well since he came in and feels that he has had some mild improvement but continues to have some fullness feeling. EKG reveals atrial fibrillation with a controlled ventricular response. Chest x-ray reveals small pleural effusions or pleural diaphragmatic scarring without change. No heart failure. 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 Moderate cardiomegaly. Laboratory data review: WBC 5.2, hemoglobin 14.4, platelets 128, sodium 135, potassium 3.3, creatinine 1.49, cardiac enzymes 0.494, proBNP 10,600, TSH 11.5 with free T4 2 0.03. Current cardiac medications include eliquis 2.5 mg daily, aspirin 81 mg daily, Lipitor 40 mg daily, Lasix 60 mg twice daily, Imdur 15 mg daily, Lopressor 25 mg twice daily. At the time of my exam: CONSTITUTIONAL: Denies fever. Denies chills. EYES: Denies blurred vision. Denies vision changes. Denies eye pain. EARS, NOSE, MOUTH & THROAT: Denies headache. Denies sore throat. Denies ear pain. CARDIOVASCULAR: Denies chest pain. Denies shortness of breath. Denies orthopnea. Denies PND. Denies palpitations. RESPIRATORY: Denies cough. GASTROINTESTINAL: Denies abdominal pain. Denies diarrhea. Denies constipation. Denies nausea. Denies vomiting. MUSCULOSKELETAL: Denies myalgias. Complains of pain to the left elbow. INTEGUMENTARY: Denies pruitis. Denies rash. NEUROLOGIC: Denies numbness. Denies tingling. Denies weakness. PSYCHIATRIC: Denies anxiety. Denies depression. ENDOCRINE: Denies fatigue. Denies weight change. Denies polydipsia. Denies polyurina. GENITOURINARY: Denies burning, hematuria or urgency with micturation. HEMATOLOGIC: Denies history of anemia. Denies bleeding. Blood pressure 102/58, heart rate 72, afebrile, maintaining oxygen saturation on room air 92%. GENERAL: This is an 87-year-old male in no apparent distress at the time of my examination. HEENT: Head is atraumatic, normocephalic. Pupils are equal, round. Sclerae anicteric. Conjunctivae are clear. Mucous membranes of the mouth are moist. Neck is supple. There is no jugular venous distention. No carotid bruit is heard. LUNGS: Clear to auscultation no wheezes, rales or rhonchi. No chest wall tenderness is noted on palpation or with deep breathing. HEART: Irregularly irregular with systolic murmur, no rubs or gallops. S1 and S2 heard. ABDOMEN: Soft, nontender. Bowel sounds are heard. No organomegaly noted. EXTREMITIES: Trace lower extremity edema and no calf tenderness noted. Dorsalis pedis +2 bilaterally. VASCULAR: Radial and dorsalis pedis pulses palpated, no evidence of clubbing. NEUROLOGIC: Patient is awake, alert and oriented x3. No focal neuro deficits. ASSESSMENT Acute on chronic diastolic heart failure. Abnormal troponin most likely secondary to heart failure Chronic atrial fibrillation Valvular heart disease with severe mitral regurgitation and tricuspid regurgitation Hypothyroidism UTI on ceftriaxone PLAN Patient will be maintained on Lasix 40 mg IV every 12 hours. Potassium replacement. Continue Lopressor 25 mg twice daily and eliquis 2.5 mg twice daily, aspirin 81 mg daily, Imdur 15 mg daily. Home dose of levothyroxine was 100 g and this will be increased to 112 g daily. Repeat electrolytes and magnesium level. Anticipate patient will be ready for discharge by tomorrow. Thank you kindly for this consultation. Nurse Practitioner note has been reviewed, I agree with a documented findings and plan of care. Patient was seen and examined. Past Medical History Past Medical History: Atrial Fibrillation, Heart Failure, Hearing Disorder / Deafness, Thyroid Disorder Additional Past Medical History / Comment(s): Pt uses straight catheterization , [facility] History of Any Multi-Drug Resistant Organisms: None Reported Past Surgical History: Heart Catheterization, Hernia Repair, Orthopedic Surgery Additional Past Surgical History / Comment(s): left knee replacement, back surgery, prostste surgery Past Psychological History: No Psychological Hx Reported Smoking Status: Never smoker Past Alcohol Use History: None Reported Past Drug Use History: None Reported - Past Family History Father Family Medical History: Cancer Additional Family Medical History / Comment(s): pancreas/liver cancer Daughter(s) Family Medical History: Cancer Additional Family Medical History / Comment(s): 'some sort of GI cancer' Medications and Allergies Home Medications Medication Instructions Recorded Confirmed Type Apixaban [Eliquis] 2.5 mg PO BID #60 tablet 03/17/18 07/03/18 Rx Aspirin 81 mg PO DAILY #30 chew 03/17/18 07/03/18 Rx Atorvastatin [Lipitor] 40 mg PO DAILY #30 tab 03/17/18 07/03/18 Rx Metoprolol Tartrate [Lopressor] 25 mg PO BID #60 tab 03/17/18 07/03/18 Rx Nitroglycerin Sl Tabs [Nitrostat] 0.4 mg SUBLINGUAL Q5M PRN #30 tab 03/17/18 Rx Isosorbide Mononitrate ER [Imdur] 15 mg PO DAILY 05/18/18 07/03/18 History Furosemide [Lasix] 60 mg PO BID #180 tab 05/20/18 07/03/18 Rx Levothyroxine Sodium [Synthroid] 100 mcg PO DAILY 07/03/18 07/03/18 History Allergies Allergy/AdvReac Type Severity Reaction Status Date / Time No Known Allergies Allergy Verified 07/03/18 08:05 Physical Exam Vitals: Vital Signs Temp Pulse Pulse Resp BP BP Pulse Ox 07/03/18 09:13 98.2 F 84 16 102/58 92 L 07/03/18 05:00 71 13 102/72 92 L 07/03/18 04:00 72 18 102/72 95 07/03/18 03:00 30 H 95 07/03/18 02:00 68 14 118/89 93 L 07/03/18 01:55 98.0 F 65 20 118/89 95 07/03/18 01:00 63 13 103/71 95 07/03/18 00:00 61 18 115/86 90 L 07/02/18 23:28 98.3 F 83 17 92/49 95 Intake and Output 07/02/18 07/03/18 07/03/18 22:59 06:59 14:59 Intake Total 70 240 Output Total 300 Balance -230 240 Intake: Amount of Fluid Infused ( 70 ml) Oral 240 Output: Urine 300 Other: Voiding Method Self-Catheterization Weight 86.273 kg 89.6 kg Results 07/03/18 00:37 07/03/18 00:37 Cardiac Enzymes 07/03/18 07/03/18 Range/Units 00:37 07:30 AST 113 H (17-59) U/L CK-MB (CK-2) 5.2 H (0.0-2.4) ng/mL Troponin I 0.494 H* (0.000-0.034) ng/mL Coagulation 07/03/18 Range/Units 00:37 PT 13.5 H (9.0-12.0) sec APTT 31.9 H (22.0-30.0) sec CBC 07/03/18 Range/Units 00:37 WBC 5.2 (3.8-10.6) k/uL RBC 4.87 (4.30-5.90) m/uL Hgb 14.4 (13.0-17.5) gm/dL Hct 44.0 (39.0-53.0) % Plt Count 128 L (150-450) k/uL Comprehensive Metabolic Panel 07/03/18 Range/Units 00:37 Sodium 135 L (137-145) mmol/L Potassium 3.3 L (3.5-5.1) mmol/L Chloride 95 L (98-107) mmol/L Carbon Dioxide 30 (22-30) mmol/L BUN 31 H (9-20) mg/dL Creatinine 1.49 H (0.66-1.25) mg/dL Glucose 98 (74-99) mg/dL Calcium 9.0 (8.4-10.2) mg/dL AST 113 H (17-59) U/L ALT 72 (21-72) U/L Alkaline Phosphatase 177 H (38-126) U/L Total Protein 6.6 (6.3-8.2) g/dL Albumin 3.6 (3.5-5.0) g/dL Current Medications Generic Name Dose Route Start Last Admin Trade Name Freq PRN Reason Stop Dose Admin Apixaban 2.5 mg 07/03/18 09:00 07/03/18 10:09 Eliquis PO 2.5 mg BID SHAINA Administration Aspirin 81 mg 07/03/18 09:00 07/03/18 10:09 Aspirin PO 81 mg DAILY SHANIA Administration Atorvastatin Calcium 40 mg 07/03/18 09:00 07/03/18 10:09 Lipitor PO 40 mg DAILY SHAINA Administration Furosemide 40 mg 07/03/18 03:00 07/03/18 10:08 Lasix IV 40 mg Q8H SHAINA Administration Ceftriaxone Sodium 1,000 mg/ 50 mls @ 100 mls/hr 07/03/18 04:00 07/03/18 04: 26 Sodium Chloride IVPB 100 mls/hr Q24H SHAINA Administration Levothyroxine Sodium 75 mcg 07/03/18 06:30 07/03/18 06:38 Synthroid PO 75 mcg DAILY@0630 SHAINA Administration Metoprolol Tartrate 25 mg 07/03/18 09:00 07/03/18 10:09 Lopressor PO 25 mg BID SHAINA Administration Intake and Output 07/02/18 07/03/18 07/03/18 22:59 06:59 14:59 Intake Total 70 240 Output Total 300 Balance -230 240 Intake: Amount of Fluid Infused ( 70 ml) Oral 240 Output: Urine 300 Other: Voiding Method Self-Catheterization Weight 86.273 kg 89.6 kg Patient Weight 07/04/18 06:59 Weight 89.6 kg 07/03/18 00:37 07/03/18 00:37
[2018-07-03 14:49] LABS: Creatine Kinase MB 4.7 ng/mL (0.0-2.4)
[2018-07-03 15:17] LABS: Troponin I 0.555 ng/mL (0.000-0.034)
[2018-07-04] MEDS: FUROSEMIDE 10 MG/ML 4 ML VIAL IV SCH (05:32)
[2018-07-04] MEDS: METOPROLOL TARTRATE 25 MG TAB PO SCH ×2 (07:28→22:20)
[2018-07-04] MEDS: APIXABAN 2.5 MG TABLET PO SCH ×2 (07:28→22:20)
[2018-07-04] MEDS: LEVOTHYROXINE 112 MCG TAB PO SCH (07:28)
[2018-07-04] MEDS: ASPIRIN 81 MG PO SCH (07:29)
[2018-07-04] MEDS: ISOSORBIDE MONONITRATE ER 15 MG TAB PO SCH (07:29)
[2018-07-04] MEDS: ATORVASTATIN 40 MG TAB PO SCH (07:29)
[2018-07-04 08:17] LABS: Calcium 8.7 mg/dL (8.4-10.2); Potassium 3.4 mmol/L (3.5-5.1)
[2018-07-04] MEDS ORDERED: POTASSIUM CHLORIDE ER 20 MEQ TAB.ER PO SCH (09:00)
--- NOTE | 2018-07-04 11:05 | P.PN ---
Subjective This is a pleasant 87-year-old gentleman who follows regularly with Dr. Bucio in the office. Patient has history of prior congestive cardiac failure with his most recent admission being in February of this year, at which time an echocardiogram with Doppler study was performed which revealed an ejection fraction of 45-50%, moderate to severe mitral regurg and moderate to severe tricuspid regurg noted at that time. Patient also underwent a cardiac catheterization in February by Dr. Bucio which revealed diffuse coronary artery disease with an intermediate lesion in the LAD in the proximal and midportion, right coronary artery and circumflex were free of any disease, and medical therapy was advised at that time. Echocardiogram obtained yesterday reveals preserved LV systolic function with ejection fraction 60-65%, moderately dilated left atrium, severe tricuspid regurgitation and trivial pericardial effusion. he is currently maintained on Lasix 40 mg IV twice a day. Laboratory data reviewed, potassium 3.4, creatinine down to 1.37, magnesium 2.3. Blood [id number] heart rate 72 afebrile maintaining oxygen saturation on room air. He states generally he feels well he denies symptoms of shortness of breath, chest pain, dizziness or palpitations. He states he feels as though his swelling is improving but he still feels generally "tight all over". GENERAL: This is an 87-year-old male in no apparent distress at the time of my examination. HEENT: Head is atraumatic, normocephalic. Pupils are equal, round. Sclerae anicteric. Conjunctivae are clear. Mucous membranes of the mouth are moist. Neck is supple. There is no jugular venous distention. No carotid bruit is heard. LUNGS: Clear to auscultation no wheezes, rales or rhonchi. No chest wall tenderness is noted on palpation or with deep breathing. HEART: Irregularly irregular with systolic murmur, no rubs or gallops. S1 and S2 heard. ABDOMEN: Soft, nontender. Bowel sounds are heard. No organomegaly noted. EXTREMITIES: 1+ bilateral lower extremity edema, right greater than left. some improvement since admission. ASSESSMENT Acute on chronic diastolic heart failure. 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 Replace potassium with two does this morning then start on aldactone 25 mg daily and discontinue to daily potassium. Repeat electrolytes and kidney function in the morning. Repeat EKG. Further recommendations to follow. Nurse Practitioner note has been reviewed, I agree with a documented findings and plan of care. Patient was seen and examined. Objective - Vital Signs Vital signs: Vital Signs Temp 98.1 F 07/04/18 07:20 Pulse 72 07/04/18 07:20 Resp 16 07/04/18 07:20 BP 102/69 07/04/18 07:20 Pulse Ox 94 L 07/04/18 07:20 Intake & Output 07/03/18 07/04/18 07/04/18 18:59 06:59 18:59 Intake Total 720 240 Balance 720 240 Weight 89.6 kg 89.2 kg Intake: Oral 720 240 Other: Voiding Method Self-Catheterization Self-Catheterization # Voids 2 1 - Labs CBC & Chem 7: 07/03/18 00:37 07/04/18 06:50 Labs: Abnormal Lab Results - Last 24 Hours (Table) 07/03/18 07/04/18 Range/Units 13:58 06:50 Potassium 3.4 L (3.5-5.1) mmol/L Chloride 94 L (98-107) mmol/L Carbon Dioxide 31 H (22-30) mmol/L BUN 25 H (9-20) mg/dL Creatinine 1.37 H (0.66-1.25) mg/dL CK-MB (CK-2) 4.7 H (0.0-2.4) ng/mL Troponin I 0.555 H* (0.000-0.034) ng/mL Microbiology - Last 24 Hours (Table) 07/03/18 01:45 Urine Culture - Preliminary Urine,Voided
[2018-07-04] MEDS: POTASSIUM CHLORIDE ER 20 MEQ TAB.ER PO SCH ×2 (13:04→14:27)
[2018-07-04] MEDS: FUROSEMIDE 20 MG TAB PO SCH (16:31)
[2018-07-04] MEDS ORDERED: POTASSIUM CHLORIDE ER 20 MEQ TAB.ER PO STA (16:34)
[2018-07-05] MEDS: SPIRONOLACTONE 25 MG TAB PO SCH (07:52)
[2018-07-05] MEDS: FUROSEMIDE 20 MG TAB PO SCH (07:52)
[2018-07-05] MEDS: ISOSORBIDE MONONITRATE ER 15 MG TAB PO SCH (07:52)
[2018-07-05] MEDS: METOPROLOL TARTRATE 25 MG TAB PO SCH ×2 (07:52→21:09)
[2018-07-05] MEDS: ASPIRIN 81 MG PO SCH (07:52)
[2018-07-05] MEDS: ATORVASTATIN 40 MG TAB PO SCH (07:52)
[2018-07-05] MEDS: APIXABAN 2.5 MG TABLET PO SCH ×2 (07:53→21:09)
[2018-07-05] MEDS: LEVOTHYROXINE 112 MCG TAB PO SCH (07:53)
--- NOTE | 2018-07-05 09:01 | P.PN ---
Subjective This is a pleasant 87 years old male with past medical history of congestive heart failure, atrial fibrillation on eliquis, hypothyroidism, hearing disorder , deafness status post cardiac cath. He presents because of increasing swelling in his both lower, scrotum and waist over 3-4 days , no chest pain or dyspnea In the emergency room Vitas looks stable and saturation 92% on room air. CBC was unremarkable except for low platelets at 1.8. INR 1.3. Sodium 135. Potassium 3.3. Creatinine 1.49, with baseline 0.9-1.2. Urine suspicious for infection. Urine culture sent chest x-ray shows small pleural effusion with no heart failure. Echocardiogram done today showing ejection fraction 60-65% with severe left ventricular hypertrophy, dilated LA, with severe tricuspid regurgitation and right ventricular systolic pressure of 24. 07/04/2018 Patient lying in bed comfortable with no chest pain or dyspnea. He lost 0.4 kg of weight. Vitals stable.labs reviewed, potassium 3.4, potassium replaced. Patient on ceftriaxone for UTI. Urine culture showing gram-negative bacilli. Final culture results still pending. Cardiology input is appreciated and they recommended to adjust the dose of Lasix to 60 mg by mouth twice a day. And add Aldactone. Repeat labs in the morning. Objective - Vital Signs Vital signs: Vital Signs Temp 98.0 F 07/04/18 14:24 Pulse 97 07/04/18 14:24 Resp 18 07/04/18 14:24 BP 97/61 07/04/18 14:24 Pulse Ox 95 07/04/18 14:24 Intake & Output 07/03/18 07/04/18 07/04/18 18:59 06:59 18:59 Intake Total 720 480 Balance 720 480 Weight 89.6 kg 89.2 kg Intake: Oral 720 480 Other: Voiding Method Self-Catheterization Self-Catheterization # Voids 2 1 4 - Exam GENERAL: The patient is alert and oriented x3, not in any acute distress. Well developed, well nourished. HEENT: Pupils are round and equally reacting to light. EOMI. No scleral icterus. No conjunctival pallor. Normocephalic, atraumatic. No pharyngeal erythema. No thyromegaly. CARDIOVASCULAR: S1 and S2 present. No murmurs, rubs, or gallops. PULMONARY: Chest is clear to auscultation, no wheezing or crackles. ABDOMEN: Soft, nontender, nondistended, normoactive bowel sounds. No palpable organomegaly. -Scrotal swelling MUSCULOSKELETAL: No joint swelling or deformity. EXTREMITIES: No cyanosis, clubbing, bilateral leg edema. NEUROLOGICAL: Gross neurological examination did not reveal any focal deficits. SKIN: No rashes. - Labs CBC & Chem 7: 07/03/18 00:37 07/04/18 06:50 Labs: Abnormal Lab Results - Last 24 Hours (Table) 07/04/18 Range/Units 06:50 Potassium 3.4 L (3.5-5.1) mmol/L Chloride 94 L (98-107) mmol/L Carbon Dioxide 31 H (22-30) mmol/L BUN 25 H (9-20) mg/dL Creatinine 1.37 H (0.66-1.25) mg/dL Microbiology - Last 24 Hours (Table) 07/03/18 01:45 Urine Culture - Preliminary Urine,Voided Gram Neg Bacilli Assessment and Plan Assessment: Acute on chronic diastolic CHF Severe tricuspid regurgitation Dilated left atrium Thrombocytopenia Acute kidney injury Mild electrolyte abnormality of hyponatremia and hypokalemia Plan: This is a pleasant 87 years old male who presents because of acute diastolic CHF. Continue with diuresis. Cardiology consult. Labs and medication were reviewed.. Continue same treatment. Continue with symptomatic treatment. Resume home medication. Monitor lytes and vitals. DVT and GI prophylaxis. Further recommendations of the clinical course of the patient DVT prophylaxis: Subcutaneous heparin GI Prophylaxis: Pepcid PT/OT: Pending Prognosis is guarded
[2018-07-05 09:34] LABS: Calcium 8.8 mg/dL (8.4-10.2); Potassium 3.5 mmol/L (3.5-5.1)
--- NOTE | 2018-07-05 14:10 | P.PN ---
Subjective This is a pleasant 87-year-old gentleman who follows regularly with Dr. Bucio in the office. Patient has history of prior congestive cardiac failure with his most recent admission being in February of this year, at which time an echocardiogram with Doppler study was performed which revealed an ejection fraction of 45-50%, moderate to severe mitral regurg and moderate to severe tricuspid regurg noted at that time. Patient also underwent a cardiac catheterization in February by Dr. Bucio which revealed diffuse coronary artery disease with an intermediate lesion in the LAD in the proximal and midportion, right coronary artery and circumflex were free of any disease, and medical therapy was advised at that time. Echocardiogram obtained this admission reveals preserved LV systolic function with ejection fraction 60-65%, moderately dilated left atrium, severe tricuspid regurgitation and trivial pericardial effusion. Lasix was transitioned to PO last evening and aldactone was added. He is seen and examined sitting up in bed in no acute distress. He states he has been up walking around with no shortness of breath or chest pain. His swelling has decreased since admission. Blood pressure 118/74 heart rate 68 afebrile maintaining oxygen saturation on room air. Laboratory data reviewed, sodium 136, potassium 3.5, creatinine 1.32, repeat NTproBNP 11,600. GENERAL: This is an 87-year-old male in no apparent distress at the time of my examination. HEENT: Head is atraumatic, normocephalic. Pupils are equal, round. Sclerae anicteric. Conjunctivae are clear. Mucous membranes of the mouth are moist. Neck is supple. There is elevated jugular venous distention. No carotid bruit is heard. LUNGS: Clear to auscultation no wheezes, rales or rhonchi. No chest wall tenderness is noted on palpation or with deep breathing. HEART: Irregularly irregular with systolic murmur, no rubs or gallops. S1 and S2 heard. ABDOMEN: Soft, nontender. Bowel sounds are heard. No organomegaly noted. EXTREMITIES: 1+ bilateral lower extremity edema, right greater than left, with some improvement since admission. ASSESSMENT Acute on chronic diastolic heart failure, improved Abnormal troponin most likely secondary to heart failure not an acute event. Chronic atrial fibrillation on longterm anticoagulation Valvular heart disease with severe mitral regurgitation and tricuspid regurgitation Hypothyroidism UTI on ceftriaxone Hypokalemia, resolved. PLAN Increase lasix to 40 mg TID. Follow renal function and electrolytes in the morning. Further recommendations to follow. Nurse Practitioner note has been reviewed, I agree with a documented findings and plan of care. Patient was seen and examined. Objective - Vital Signs Vital signs: Vital Signs Temp 98.1 F 07/05/18 07:48 Pulse 68 07/05/18 07:48 Resp 16 07/05/18 07:48 BP 118/74 07/05/18 07:48 Pulse Ox 94 L 07/05/18 07:48 Intake & Output 07/04/18 07/05/18 07/05/18 18:59 06:59 18:59 Intake Total 720 240 Balance 720 240 Weight 89.2 kg 90.3 kg Intake: Oral 720 240 Other: Voiding Method Self-Catheterization Self-Catheterization # Voids 4 1 - Labs CBC & Chem 7: 07/03/18 00:37 07/05/18 08:43 Labs: Abnormal Lab Results - Last 24 Hours (Table) 07/05/18 Range/Units 08:43 Sodium 136 L (137-145) mmol/L Chloride 94 L (98-107) mmol/L BUN 26 H (9-20) mg/dL Creatinine 1.32 H (0.66-1.25) mg/dL Glucose 128 H (74-99) mg/dL Microbiology - Last 24 Hours (Table) 07/03/18 01:45 Urine Culture - Final Urine,Voided Escherichia coli
--- NOTE | 2018-07-05 14:55 | P.PN ---
Subjective Progress Note Date: 07/05/18 Pleasant 87-year-old gentleman with a history of CHF, A. fib on antibiotic admission is admitted forwhat is swelling, scrotal swelling and swelling up to the waist. Today the patient says that his swelling has gone down. He does not complain of any chest pain, racing heart, no cough, shortness of breath, no bowel pain, nausea and vomiting, no diarrhea no constipation, no tingling numbness in the extremities, no itch or rash. Patient was also diagnosed with UTI and started on ceftriaxone Objective - Vital Signs Vital signs: Vital Signs Temp 98.1 F 07/05/18 07:48 Pulse 68 07/05/18 07:48 Resp 16 07/05/18 07:48 BP 118/74 07/05/18 07:48 Pulse Ox 94 L 07/05/18 07:48 Intake & Output 07/04/18 07/05/18 07/05/18 18:59 06:59 18:59 Intake Total 720 480 Balance 720 480 Weight 89.2 kg 90.3 kg Intake: Oral 720 480 Other: Voiding Method Self-Catheterization Self-Catheterization # Voids 4 1 2 - Constitutional General appearance: Present: cooperative - EENT Eyes: Present: PERRLA ENT: Present: hard of hearing - Neck Neck: Absent: lymphadenopathy, thyromegaly - Respiratory Respiratory: bilateral: CTA - Cardiovascular Heart sounds: normal: S1, S2 - Gastrointestinal General gastrointestinal: Present: normal bowel sounds - Genitourinary Male genitourinary: scrotal edema - Neurologic Neurologic: Present: CNII-XII intact. Absent: focal deficits - Musculoskeletal Musculoskeletal: Present: strength equal bilaterally - Psychiatric Psychiatric: Present: A&O x's 3, appropriate affect - Labs CBC & Chem 7: 07/03/18 00:37 07/05/18 08:43 Labs: Abnormal Lab Results - Last 24 Hours (Table) 07/05/18 Range/Units 08:43 Sodium 136 L (137-145) mmol/L Chloride 94 L (98-107) mmol/L BUN 26 H (9-20) mg/dL Creatinine 1.32 H (0.66-1.25) mg/dL Glucose 128 H (74-99) mg/dL Microbiology - Last 24 Hours (Table) 07/03/18 01:45 Urine Culture - Final Urine,Voided Escherichia coli Assessment and Plan Plan: Assessment 1. CHF exacerbation 2. UTI 3. History of A. fib on eliquis 4. Severe tricuspid regurgitation 5. AK I Plan - Continue Lasix 40 3 times a day IV as per cardiology recommendations - Continue Rocephin - Continue rest of the patient's home medications - DVT and GI prophylaxis - Monitor labs - We will follow the patient
[2018-07-05] MEDS: FUROSEMIDE 10 MG/ML 4 ML VIAL IV SCH ×2 (17:10→23:44)
[2018-07-06] MEDS: ATORVASTATIN 40 MG TAB PO SCH (08:39)
[2018-07-06] MEDS: SPIRONOLACTONE 25 MG TAB PO SCH (08:39)
[2018-07-06] MEDS: ISOSORBIDE MONONITRATE ER 15 MG TAB PO SCH (08:40)
[2018-07-06] MEDS: APIXABAN 2.5 MG TABLET PO SCH ×2 (08:40→20:38)
[2018-07-06] MEDS: METOPROLOL TARTRATE 25 MG TAB PO SCH ×2 (08:40→20:38)
[2018-07-06] MEDS: FUROSEMIDE 10 MG/ML 4 ML VIAL IV SCH ×3 (08:40→22:05)
[2018-07-06] MEDS: ASPIRIN 81 MG PO SCH (08:40)
[2018-07-06] MEDS: LEVOTHYROXINE 112 MCG TAB PO SCH (09:52)
[2018-07-06 11:24] LABS: Calcium 8.7 mg/dL (8.4-10.2); Potassium 3.2 mmol/L (3.5-5.1)
[2018-07-06 11:27] LABS: Anisocytosis Slight; Basophils % (A) 0 %; Eosinophils # (A) 0.2 k/uL (0-0.7); Eosinophils % (A) 3 %; HCT 44.3 % (39.0-53.0); HGB 13.9 gm/dL (13.0-17.5); Lymphocytes # (A) 0.7 k/uL (1.0-4.8); Lymphocytes % (A) 13 %; MCH 29.1 pg (25.0-35.0); MCHC 31.3 g/dL (31.0-37.0); MCV 92.8 fL (80.0-100.0); Mean Platelet Volume 7.6; Monocytes # (A) 0.3 k/uL (0-1.0); Monocytes % (A) 7 %; Neutrophils # (A) 3.7 k/uL (1.3-7.7); Neutrophils % (A) 74 %; Platelet Count 132 k/uL (150-450); RBC 4.77 m/uL (4.30-5.90); RDW 16.3 % (11.5-15.5)
[2018-07-06] MEDS ORDERED: POTASSIUM CHLORIDE ER 20 MEQ TAB.ER PO STA (13:33)
--- NOTE | 2018-07-06 13:35 | P.PN ---
Subjective This is a pleasant 87-year-old gentleman who follows regularly with Dr. Bucio in the office. Patient has history of prior congestive cardiac failure with his most recent admission being in February of this year, at which time an echocardiogram with Doppler study was performed which revealed an ejection fraction of 45-50%, moderate to severe mitral regurg and moderate to severe tricuspid regurg noted at that time. Patient also underwent a cardiac catheterization in February by Dr. Bucio which revealed diffuse coronary artery disease with an intermediate lesion in the LAD in the proximal and midportion, right coronary artery and circumflex were free of any disease, and medical therapy was advised at that time. Echocardiogram obtained this admission reveals preserved LV systolic function with ejection fraction 60-65%, moderately dilated left atrium, severe tricuspid regurgitation and trivial pericardial effusion. He is maintained on lasix 40 mg TID. He continues to have lower extremity edema and increased jugular venous pressure. Laboratory data reviewed, WBC 5.0, hemoglobin 13.9, platelets 132, sodium 137, potassium 3.2, creatinine 1.29. Blood pressure 102/68 heart rate 68 afebrile maintaining oxygen saturation on room air. GENERAL: This is an 87-year-old male in no apparent distress at the time of my examination. HEENT: Head is atraumatic, normocephalic. Pupils are equal, round. Sclerae anicteric. Conjunctivae are clear. Mucous membranes of the mouth are moist. Neck is supple. There is elevated jugular venous distention. No carotid bruit is heard. LUNGS: Clear to auscultation no wheezes, rales or rhonchi. No chest wall tenderness is noted on palpation or with deep breathing. HEART: Irregularly irregular with systolic murmur, no rubs or gallops. S1 and S2 heard. ABDOMEN: Soft, nontender. Bowel sounds are heard. No organomegaly noted. EXTREMITIES: 1+ bilateral lower extremity edema, right greater than left, with some improvement since admission. ASSESSMENT Acute on chronic diastolic heart failure, improved Abnormal troponin most likely secondary to heart failure not an acute event. 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 Repeat chest xray today and NTproBNP tomorrow morning. Follow renal function and electrolytes in the morning. Further recommendations to follow. Nurse Practitioner note has been reviewed, I agree with a documented findings and plan of care. Patient was seen and examined. Objective - Vital Signs Vital signs: Vital Signs Temp 97.8 F 07/06/18 07:37 Pulse 68 07/06/18 07:37 Resp 17 07/06/18 07:37 BP 102/68 07/06/18 07:37 Pulse Ox 97 07/06/18 07:37 Intake & Output 07/05/18 07/06/18 07/06/18 18:59 06:59 18:59 Intake Total 480 550 Balance 480 550 Weight 90.3 kg Intake: Intake, IV Titration 100 Amount cefTRIAXone 1,000 mg In 100 Sodium Chloride 0.9% 50 ml @ 100 mls/hr IVPB Q24H [facility] Rx#:[id number] Oral 480 450 Other: Voiding Method Self-Catheterization Self-Catheterization # Voids 2 1 - Labs CBC & Chem 7: 07/06/18 10:06 07/06/18 10:06 Labs: Abnormal Lab Results - Last 24 Hours (Table) 07/06/18 07/06/18 Range/Units 10:06 10:06 RDW 16.3 H (11.5-15.5) % Plt Count 132 L (150-450) k/uL Lymphocytes # 0.7 L (1.0-4.8) k/uL Potassium 3.2 L (3.5-5.1) mmol/L Chloride 94 L (98-107) mmol/L Carbon Dioxide 32 H (22-30) mmol/L BUN 25 H (9-20) mg/dL Creatinine 1.29 H (0.66-1.25) mg/dL Glucose 100 H (74-99) mg/dL Microbiology - Last 24 Hours (Table) 07/03/18 01:45 Urine Culture - Final Urine,Voided Escherichia coli
[2018-07-06 14:18] VITALS: BMI 28.5
[2018-07-06 15:03] VITALS: RESP 16
--- NOTE | 2018-07-06 20:17 | P.PN ---
Subjective Progress Note Date: 07/06/18 Pleasant 87-year-old gentleman with a history of CHF, A. fib on antibiotic admission is admitted forwhat is swelling, scrotal swelling and swelling up to the waist. Today the patient says that his swelling has gone down. He does not complain of any chest pain, racing heart, no cough, shortness of breath, no bowel pain, nausea and vomiting, no diarrhea no constipation, no tingling numbness in the extremities, no itch or rash. Patient was also diagnosed with UTI and started on ceftriaxone 07/06/2018 Patient still having lower extremity edema. He does not complain of any shortness of breath or cough, no chest pain or racing heart, no abdominal pain, nausea no vomiting, no diarrhea constipation Objective - Vital Signs Vital signs: Vital Signs Temp 97.8 F 07/06/18 07:37 Pulse 68 07/06/18 07:37 Resp 17 07/06/18 07:37 BP 102/68 07/06/18 07:37 Pulse Ox 97 07/06/18 07:37 Intake & Output 07/05/18 07/06/18 07/06/18 18:59 06:59 18:59 Intake Total 480 550 Balance 480 550 Weight 90.3 kg 90.3 kg Intake: Intake, IV Titration 100 Amount cefTRIAXone 1,000 mg In 100 Sodium Chloride 0.9% 50 ml @ 100 mls/hr IVPB Q24H [facility] Rx#:[id number] Oral 480 450 Other: Voiding Method Self-Catheterization Self-Catheterization # Voids 2 1 - Exam Constitutional General appearance: Present: cooperative - EENT Eyes: Present: PERRLA ENT: Present: hard of hearing - Neck Neck: Absent: lymphadenopathy, thyromegaly, JVD present, - Respiratory Respiratory: bilateral: CTA - Cardiovascular Heart sounds: normal: S1, S2 - Gastrointestinal General gastrointestinal: Present: normal bowel sounds - Genitourinary Male genitourinary: scrotal edema - Neurologic Neurologic: Present: CNII-XII intact. Absent: focal deficits - Musculoskeletal Musculoskeletal: Present: strength equal bilaterally - Psychiatric Psychiatric: Present: A&O x's 3, appropriate affect - Labs CBC & Chem 7: 07/06/18 10:06 07/06/18 10:06 Labs: Abnormal Lab Results - Last 24 Hours (Table) 07/06/18 07/06/18 Range/Units 10:06 10:06 RDW 16.3 H (11.5-15.5) % Plt Count 132 L (150-450) k/uL Lymphocytes # 0.7 L (1.0-4.8) k/uL Potassium 3.2 L (3.5-5.1) mmol/L Chloride 94 L (98-107) mmol/L Carbon Dioxide 32 H (22-30) mmol/L BUN 25 H (9-20) mg/dL Creatinine 1.29 H (0.66-1.25) mg/dL Glucose 100 H (74-99) mg/dL Assessment and Plan Plan: Assessment 1. CHF exacerbation 2. UTI 3. History of A. fib on eliquis 4. Severe tricuspid regurgitation 5. AK I Plan - Continue lasix as per cardio recommedations - Continue Rocephin - Monitor I and O - Order for labs in THE AM - DVT and GI ppx - Will f/u on the patient. Time with Patient: Greater than 30
--- NOTE | 2018-07-06 20:29 | XR ---
EXAMINATION: XR chest 2V DATE AND TIME: 07/06/2018 7:15 PM CLINICAL INDICATION: PHH; sob TECHNIQUE: Departmental protocol COMPARISON: 07/03/2018 FINDINGS: Previously seen 1.5 cm nodular density in the lateral right lower lung zone is redemonstrated, likely calcified granuloma. Lungs are otherwise clear bilaterally. Bilateral blunting of the costophrenic angle is redemonstrated, later on the left, likely bilateral s mall pleural effusions. Moderate cardiac silhouette enlargement redemonstrated. No acute bone or soft tissue findings. IMPRESSION: Stable radiographic findings. No new process.
[2018-07-07] MEDS: LEVOTHYROXINE 112 MCG TAB PO SCH (05:25)
--- NOTE | 2018-07-07 08:03 | P.CONS ---
History of Present Illness - Reason for Consult Consult date: 07/06/18 Leg swelling Requesting physician: Breonna Zapien - Chief Complaint leg swelling, shortness of breath - History of Present Illness The patient is a pleasant 87-year-old male with a known history of coronary artery disease currently on medical treatment who presented to the hospital due to complaints of fluid overload. The patient had noticed increasing in his lower extremity swelling and some shortness of breath. Currently the patient is being seen and managed by the cardiology service with associated diaphoresis as part of his management. The patient had lower extremity swelling and distention which extended up to his abdomen. He denies any history of prior abdominal swelling or ascites. He denies any history of liver disease or cirrhosis. He denies any associated abdominal pain. He denies any history of dysphagia, nausea or vomiting. He reports that bowel movements are regular and color, caliber and without any hematochezia or melena. He reports very occasional heartburn for which he takes [id number] Tums. He does report a prior history of colonoscopy but states that this was approximately 30 years ago and he has a known history of colonic polyps. He denies any fevers chills or night sweats. Review of Systems REVIEW OF SYSTEMS: CARDIO: Denies any chest pain or palpitations. PULMONARY: Denies any shortness of breath or wheezing. GENITOURINARY: No dysuria or hematuria. MUSCULOSKELETAL: No weakness reported. SKIN: Denies any new rashes or lesions, jaundice or pallor. PSYCHIATRIC: Denies any depression or anxiety. NEUROLOGY: Denies headache, denies any new focal deficits. EARS: No tinnitus, discharge or new hearing loss. NOSE: No discharge or congestion. EYES: No pain in eyes or change in vision. CONSTITUTIONAL: No recent weight loss. No fever, chills, night sweats. Past Medical History Past Medical History: Atrial Fibrillation, Heart Failure, Hearing Disorder / Deafness, Thyroid Disorder Additional Past Medical History / Comment(s): Pt uses straight catheterization , [facility] History of Any Multi-Drug Resistant Organisms: None Reported Past Surgical History: Heart Catheterization, Hernia Repair, Orthopedic Surgery Additional Past Surgical History / Comment(s): left knee replacement, back surgery, prostste surgery Past Psychological History: No Psychological Hx Reported Smoking Status: Never smoker Past Alcohol Use History: None Reported Past Drug Use History: None Reported - Past Family History Father Family Medical History: Cancer Additional Family Medical History / Comment(s): pancreas/liver cancer Daughter(s) Family Medical History: Cancer Additional Family Medical History / Comment(s): 'some sort of GI cancer' Medications and Allergies Home Medications Medication Instructions Recorded Confirmed Type Apixaban [Eliquis] 2.5 mg PO BID #60 tablet 03/17/18 07/03/18 Rx Aspirin 81 mg PO DAILY #30 chew 03/17/18 07/03/18 Rx Atorvastatin [Lipitor] 40 mg PO DAILY #30 tab 03/17/18 07/03/18 Rx Metoprolol Tartrate [Lopressor] 25 mg PO BID #60 tab 03/17/18 07/03/18 Rx Nitroglycerin Sl Tabs [Nitrostat] 0.4 mg SUBLINGUAL Q5M PRN #30 tab 03/17/18 Rx Isosorbide Mononitrate ER [Imdur] 15 mg PO DAILY 05/18/18 07/03/18 History Furosemide [Lasix] 60 mg PO BID #180 tab 05/20/18 07/03/18 Rx Levothyroxine Sodium [Synthroid] 100 mcg PO DAILY 07/03/18 07/03/18 History Spironolactone [Aldactone] 25 mg PO DAILY #90 tab 07/05/18 Rx Allergies Allergy/AdvReac Type Severity Reaction Status Date / Time No Known Allergies Allergy Verified 07/03/18 08:05 Physical Exam Vitals: Vital Signs Temp Pulse Resp BP Pulse Ox 07/06/18 19:54 98.0 F 71 16 112/64 95 07/06/18 15:00 97.7 F 70 16 102/69 95 07/06/18 07:37 97.8 F 68 17 102/68 97 Intake and Output 07/06/18 07/06/18 07/07/18 14:59 22:59 06:59 Intake Total 150 Balance 150 Intake: Oral 150 Other: Voiding Method Self-Catheterization Self-Catheterization Self-Catheterization # Voids 2 1 Weight 90.3 kg On physical examination, patient appears comfortable in no apparent distress. HEAD: Normocephalic, atraumatic. EYES: No scleral icterus. No conjunctival injection. MOUTH: No lesions, tongue midline. NECK: Trachea midline, no gross abnormalities. CHEST: Clear to auscultation with no wheezing or rhonchi appreciated. HEART: S1, S2, irregularly irregular. ABDOMEN: Soft, obese. Bowel sounds are positive. No organomegaly. No guarding or rigidity. EXTREMITIES: Bilateral pitting pedal edema. SKIN: No rashes, no jaundice. NEUROLOGIC: Alert and oriented x3. No focal deficits. Results CBC & Chem 7: 07/06/18 10:06 07/06/18 10:06 Labs: Abnormal Lab Results - Last 24 Hours (Table) 07/06/18 07/06/18 Range/Units 10: 10:06 RDW 16.3 H (11.5-15.5) % Plt Count 132 L (150-450) k/uL Lymphocytes # 0.7 L (1.0-4.8) k/uL Potassium 3.2 L (3.5-5.1) mmol/L Chloride 94 L (98-107) mmol/L Carbon Dioxide 32 H (22-30) mmol/L BUN 25 H (9-20) mg/dL Creatinine 1.29 H (0.66-1.25) mg/dL Glucose 100 H (74-99) mg/dL Assessment and Plan (1) Abdominal distension Narrative/Plan: New-onset abdominal distention which the patient reports extends up from his lower extremities into the abdomen. In a patient with no laboratory evidence of liver disease or reported history of cirrhosis or liver disease this likely represents a cardiac etiology. Differential also includes infectious process, malignant process, underlying liver disease or other etiology although these are less likely. Current Visit: Yes Status: Acute Code(s): R14.0 - ABDOMINAL DISTENSION ( GASEOUS) SNOMED Code(s): 10798215 (2) CHF (congestive heart failure) Current Visit: Yes Status: Acute Code(s): I50.9 - HEART FAILURE, UNSPECIFIED SNOMED Code(s): 15781664 Plan: Supportive care Okay for diet Continue diuresis per cardiology service Cardiology recommendations appreciated Will order ultrasound-guided paracentesis with fluid studies, continue on the patient having enough ascitic fluid for paracentesis to be performed Thank you for allowing us to participate in the care of this patient we will continue to follow
[2018-07-07 09:17] LABS: Calcium 8.8 mg/dL (8.4-10.2); Potassium 3.3 mmol/L (3.5-5.1)
--- NOTE | 2018-07-07 09:20 | P.PN ---
Subjective Progress Note Date: 07/07/18 Pleasant 87-year-old gentleman with a history of CHF, A. fib on antibiotic admission is admitted forwhat is swelling, scrotal swelling and swelling up to the waist. Today the patient says that his swelling has gone down. He does not complain of any chest pain, racing heart, no cough, shortness of breath, no bowel pain, nausea and vomiting, no diarrhea no constipation, no tingling numbness in the extremities, no itch or rash. Patient was also diagnosed with UTI and started on ceftriaxone 07/06/2018 Patient still having lower extremity edema. He does not complain of any shortness of breath or cough, no chest pain or racing heart, no abdominal pain, nausea no vomiting, no diarrhea constipation 07/07/2018 Patient still having lower extremities edema which is more than yesterday. GI evaluated the patient. He'll be going for ultrasound to see if he needs paracentesis. He otherwise does not complain of any chest pain or racing heart, , no cough or shortness of breath, no bowel pain, nausea or vomiting, or diarrhea constipation. Objective - Vital Signs Vital signs: Vital Signs Temp 98.0 F 07/07/18 00:02 Pulse 64 07/07/18 00:02 Resp 16 07/07/18 00:02 BP 101/65 07/07/18 00:02 Pulse Ox 95 07/07/18 00:02 Intake & Output 07/06/18 07/07/18 07/07/18 18:59 06:59 18:59 Intake Total 150 Balance 150 Weight 90.3 kg 89.8 kg Intake: Oral 150 Other: Voiding Method Self-Catheterization Self-Catheterization # Voids 2 1 - Exam Constitutional General appearance: Present: cooperative - EENT Eyes: Present: PERRLA ENT: Present: hard of hearing - Neck Neck: Absent: lymphadenopathy, thyromegaly, JVD present, - Respiratory Respiratory: bilateral: CTA - Cardiovascular Heart sounds: normal: S1, S2 - Gastrointestinal General gastrointestinal: Present: normal bowel sounds - Genitourinary Male genitourinary: scrotal edema - Neurologic Neurologic: Present: CNII-XII intact. Absent: focal deficits - Musculoskeletal Musculoskeletal: Present: strength equal bilaterally, +2 pedal edema bilateral - Psychiatric Psychiatric: Present: A&O x's 3, appropriate affect - Labs CBC & Chem 7: 07/06/18 10:06 07/06/18 10:06 Labs: Abnormal Lab Results - Last 24 Hours (Table) 07/06/18 07/06/18 Range/Units 10:06 10:06 RDW 16.3 H (11.5-15.5) % Plt Count 132 L (150-450) k/uL Lymphocytes # 0.7 L (1.0-4.8) k/uL Potassium 3.2 L (3.5-5.1) mmol/L Chloride 94 L (98-107) mmol/L Carbon Dioxide 32 H (22-30) mmol/L BUN 25 H (9-20) mg/dL Creatinine 1.29 H (0.66-1.25) mg/dL Glucose 100 H (74-99) mg/dL Assessment and Plan Plan: Assessment 1. CHF exacerbation 2. UTI 3. History of A. fib on eliquis 4. Severe tricuspid regurgitation 5. MARK ANTHONY improving her diuretics probably due to cardiorenal syndrome Plan - Continue lasix as per cardio recommedations - Continue Rocephin - Monitor I and O -GI saw the patient. Appreciate GI recommendations. Patient having ultrasound to see if he needs paracentesis if there is significant ascites fluid - Order for labs in THE AM - DVT and GI ppx - Will f/u on the patient. Time with Patient: Greater than 30
[2018-07-07] MEDS: FUROSEMIDE 10 MG/ML 4 ML VIAL IV SCH (09:34)
[2018-07-07] MEDS: ATORVASTATIN 40 MG TAB PO SCH (09:35)
[2018-07-07] MEDS: METOPROLOL TARTRATE 25 MG TAB PO SCH ×2 (09:35→23:01)
[2018-07-07] MEDS: ASPIRIN 81 MG PO SCH (09:35)
[2018-07-07] MEDS: APIXABAN 2.5 MG TABLET PO SCH ×2 (09:35→23:01)
[2018-07-07] MEDS: SPIRONOLACTONE 25 MG TAB PO SCH (09:35)
[2018-07-07] MEDS: ISOSORBIDE MONONITRATE ER 15 MG TAB PO SCH (09:36)
--- NOTE | 2018-07-07 11:22 | US ---
EXAMINATION TYPE: US abdomen limited DATE OF EXAM: 07/07/2018 COMPARISON: US CLINICAL HISTORY: ascites. Ascites check Mild/Moderate amount of ascites visualized, more RLQ and left flank 6 images saved show mild to moderate amount of ascites most prominent in the left flank. IMPRESSION: As above.
[2018-07-07] MEDS ORDERED: POTASSIUM CHLORIDE ER 20 MEQ TAB.ER PO STA (11:48)
--- NOTE | 2018-07-07 11:50 | P.PN ---
Subjective This is a pleasant 87-year-old gentleman who follows regularly with Dr. Bucio in the office. Patient has history of prior congestive cardiac failure with his most recent admission being in February of this year, at which time an echocardiogram with Doppler study was performed which revealed an ejection fraction of 45-50%, moderate to severe mitral regurg and moderate to severe tricuspid regurg noted at that time. Patient also underwent a cardiac catheterization in February by Dr. Bucio which revealed diffuse coronary artery disease with an intermediate lesion in the LAD in the proximal and midportion, right coronary artery and circumflex were free of any disease, and medical therapy was advised at that time. Echocardiogram obtained this admission reveals preserved LV systolic function with ejection fraction 60-65%, moderately dilated left atrium, severe tricuspid regurgitation and trivial pericardial effusion. He is maintained on lasix 40 mg IV TID. He continues to have lower extremity edema and increased jugular venous pressure. Laboratory data reviewed, sodium 137, potassium 3.3, creatinine 1.3, NT proBNP 10,900. Repeat chest x-ray is stable with ongoing bilateral blunting of the costophrenic angles with a likely bilateral small pleural effusions. He has been seen in consultation by GI services an abdominal ultrasound was then obtained. Mild to moderate amount of ascites visualized in the right lower quadrant and left flank. Blood pressure 120/63 heart rate 79 afebrile maintaining oxygen saturation on room air. He is seen and examined resting comfortably in bed in no acute distress. He continues to deny symptoms of shortness of breath, chest pain, dizziness or palpitations. GENERAL: This is an 87-year-old male in no apparent distress at the time of my examination. HEENT: Head is atraumatic, normocephalic. Pupils are equal, round. Sclerae anicteric. Conjunctivae are clear. Mucous membranes of the mouth are moist. Neck is supple. There is elevated jugular venous distention. No carotid bruit is heard. LUNGS: Clear to auscultation no wheezes, rales or rhonchi. No chest wall tenderness is noted on palpation or with deep breathing. HEART: Irregularly irregular with systolic murmur, no rubs or gallops. S1 and S2 heard. ABDOMEN: Soft, nontender. Bowel sounds are heard. No organomegaly noted. EXTREMITIES: 1+ bilateral lower extremity edema. No change from yesterday's exam. ASSESSMENT Acute on chronic diastolic heart failure, improved Abnormal troponin most likely secondary to heart failure not an acute event. Chronic atrial fibrillation on medical terminologist anticoagulation Valvular heart disease with severe mitral regurgitation and tricuspid regurgitation Hypothyroidism UTI on ceftriaxone Hypokalemia ongoing despite addition of aldactone PLAN Give potassium 40 MEQ x 1. Transition to PO lasix 40 mg BID. Ongoing medical management per GI services for possible drainage of ascites. Follow up with Dr. Bucio upon discharge. Nurse Practitioner note has been reviewed, I agree with a documented findings and plan of care. Patient was seen and examined. Objective - Vital Signs Vital signs: Vital Signs Temp 97.5 F L 07/07/18 08:05 Pulse 79 07/07/18 08:05 Resp 16 07/07/18 08:05 BP 120/63 07/07/18 08:05 Pulse Ox 94 L 07/07/18 08:05 Intake & Output 07/06/18 07/07/18 07/07/18 18:59 06:59 18:59 Intake Total 150 Balance 150 Weight 90.3 kg 89.8 kg Intake: Oral 150 Other: Voiding Method Self-Catheterization Self-Catheterization Self-Catheterization # Voids 2 1 - Labs CBC & Chem 7: 07/06/18 10:06 07/07/18 08:25 Labs: Abnormal Lab Results - Last 24 Hours (Table) 07/07/18 Range/Units 08:25 Potassium 3.3 L (3.5-5.1) mmol/L Chloride 97 L (98-107) mmol/L Carbon Dioxide 32 H (22-30) mmol/L BUN 25 H (9-20) mg/dL Creatinine 1.30 H (0.66-1.25) mg/dL Glucose 109 H (74-99) mg/dL
--- NOTE | 2018-07-07 12:41 | P.PN ---
Subjective Progress Note Date: 07/07/18 Principal diagnosis: Shortness of breath leg swelling 87-year-old male with a history of CAD maintained on anticoagulation admitted with lower extremity edema abdominal bloatedness shortness of breath. Feels better today. Abdominal bloatedness improved. Receiving diuretics. Diagnostic paracentesis requested but presently on hold secondary to anticoagulation. Ultrasound abdomen mild/moderate ascites. Objective - Vital Signs Vital signs: Vital Signs Temp 97.5 F L 07/07/18 08:05 Pulse 79 07/07/18 08:05 Resp 16 07/07/18 08:05 BP 120/63 07/07/18 08:05 Pulse Ox 94 L 07/07/18 08:05 Intake & Output 07/06/18 07/07/18 07/07/18 18:59 06:59 18:59 Intake Total 150 Balance 150 Weight 90.3 kg 89.8 kg Intake: Oral 150 Other: Voiding Method Self-Catheterization Self-Catheterization Self-Catheterization # Voids 2 1 - Exam General appearance: The patient is alert, oriented, in no acute distress. HET: Head is normocephalic and atraumatic. Pupils are equal and reactive. Oropharynx is clear without lesions. Neck: Supple without lymphadenopathy. Trachea midline. Heart: S1 S2. Regular rate and rhythm. Lungs: No crackles or wheezes are heard. Abdomen: Soft, nontender, mildly bloated with bowel sounds. No peritoneal signs. No palpable organomegaly or masses. Extremities: +2 bilateral lower extremity edema. Neurological: No focal deficits. Strength and sensation are grossly intact. - Labs CBC & Chem 7: 07/06/18 10:06 07/07/18 08:25 Labs: Abnormal Lab Results - Last 24 Hours (Table) 07/07/18 Range/Units 08:25 Potassium 3.3 L (3.5-5.1) mmol/L Chloride 97 L (98-107) mmol/L Carbon Dioxide 32 H (22-30) mmol/L BUN 25 H (9-20) mg/dL Creatinine 1.30 H (0.66-1.25) mg/dL Glucose 109 H (74-99) mg/dL Assessment and Plan (1) Abdominal distension Current Visit: Yes Status: Acute Code(s): R14.0 - ABDOMINAL DISTENSION ( GASEOUS) SNOMED Code(s): 31639328 (2) CHF (congestive heart failure) Current Visit: Yes Status: Acute Code(s): I50.9 - HEART FAILURE, UNSPECIFIED SNOMED Code(s): 09911864 (3) Elevated liver enzymes Narrative/Plan: Possible secondary to passive venous congestion CHF exacerbation Current Visit: Yes Status: Acute Code(s): R74.8 - ABNORMAL LEVELS OF OTHER SERUM ENZYMES SNOMED Code(s): 197160024 Plan: 1. Continue with diuretic therapy. Low-salt diet. CMP in a.m. Diagnostic paracentesis requested however anticoagulation needs to be held 48 hours prior to procedure. Consideration for holding off on paracentesis if lower extremity/ abdominal edema improves with diuretics; advanced age and diagnosis of underlying portal hypertension would not necessarily change present diuretic treatment. Assessment and plan a care discussed with Dr. Cook
--- NOTE | 2018-07-07 13:56 | CDI ---
Documentation Clarification Form Date: 07/08/2018 CDS: Kayli Medeiros, CCS, CCDS Admit Date: 07/03/2018 Patient Name: Shahzad Sanchez Discharge Date: ATTENTION: The Clinical Documentation Specialists (CDI) and [facility] Coding Staff appreciate your assistance in clarifying documentation. Please respond to the clarification below the line at the bottom and electronically sign. The CDI & [facility] Coding staff will review the response and follow-up if needed. Please note: Queries are made part of the Legal Health Record. If you have any questions, please contact the author of this message via ITS. Dr. Tremayne Marques M.D.: Per the 07/07 attending progress note: "MARK ANTHONY improving her diuretics probably due to cardiorenal syndrome." History/Risk Factors: Atrial Fibrillation on Eliquis, CHF, Hypothyroidism, no documented history of hypertension. Clinical Indicators: Presented with swelling in bilateral lower extremities & scrotum & increased abdominal swelling. Diagnosed with Acute on Chronic Diastolic CHF. ECHO 07/03: EF 60-65% w/severe left ventricular hypertrophy. Current BUN/CR/GFR: 31 - 1.49 - 42 Patients Baseline BUN/CR/GFR: unknown or not documented, no nephrology consult. Treatment: Telemetry, IV Lasix, IV Rocephin, Nephrology not consulted. In order to capture the severity of condition, please clarify if the condition signifies: Cardiorenal syndrome including Hypertensive heart disease with documented acute on chronic diastolic congestive heart failure o With or Without Acute Renal Failure and o CKD Stage 1 (GFR > 90) o CKD Stage 2 (GFR 60-89) o CKD Stage 3 (GFR 30-59) o Other, please specify: o Unable to determine o CKD ruled out (Last Revision: October 2017) MTDD
[2018-07-07] MEDS: FUROSEMIDE 40 MG TAB PO SCH (17:43)
[2018-07-08] MEDS: LEVOTHYROXINE 112 MCG TAB PO SCH (06:06)
[2018-07-08 08:08] VITALS: BP 123/76; PULSE 67; TEMP 97.7
[2018-07-08 08:51] LABS: Albumin 3.1 g/dL (3.5-5.0); Calcium 8.5 mg/dL (8.4-10.2); Potassium 3.4 mmol/L (3.5-5.1); Total Bilirubin 2.6 mg/dL (0.2-1.3); Total Protein 6.2 g/dL (6.3-8.2)
[2018-07-08] MEDS ORDERED: CODEINE 30 MG TAB PO PRN ×2 (09:28)
[2018-07-08] MEDS: SPIRONOLACTONE 25 MG TAB PO SCH (10:02)
[2018-07-08] MEDS: METOPROLOL TARTRATE 25 MG TAB PO SCH (10:02)
[2018-07-08] MEDS: ISOSORBIDE MONONITRATE ER 15 MG TAB PO SCH (10:02)
[2018-07-08] MEDS: FUROSEMIDE 40 MG TAB PO SCH (10:02)
[2018-07-08] MEDS: ASPIRIN 81 MG PO SCH (10:02)
[2018-07-08] MEDS: ATORVASTATIN 40 MG TAB PO SCH (10:02)
[2018-07-08] MEDS: APIXABAN 2.5 MG TABLET PO SCH (10:02)
--- NOTE | 2018-07-08 12:02 | P.DS ---
Providers Date of admission: 07/03/18 02:52 Expected date of discharge: 07/08/18 Attending physician: Breonna Zapien Consults: 07/03/18 02:53 Consult Physician Routine Consulting Provider: Cardiology Naz Consult Reason/Comments: chf exacerbation Do you want consulting provider notified?: Yes, Notify in am 07/05/18 11:35 Consult Physician Routine Consulting Provider: Meghan Hanna Consult Reason/Comments: leg swelling Do you want consulting provider notified?: Yes Primary care physician: Angie Palomares - Linda Diagnosis(es) (1) CHF (congestive heart failure) Current Visit: Yes Status: Acute (2) Urinary tract infection Current Visit: Yes Status: Acute (3) Abdominal distension Current Visit: Yes Status: Acute (4) Elevated liver enzymes Current Visit: Yes Status: Acute (5) Atrial fibrillation Current Visit: No Status: Acute Hospital Course: Very pleasant 87-year-old gentleman with a history of CHF and A. fib on anti- correlation for swelling of his lower extremities, scrotum and his waist. He was not complaining of any chest pain or shortness of breath no racing heart no cough. He is also diagnosed with UTI and started on Rocephin. Cardiology was consulted and he was put on Lasix IV. His swelling started improving and his kidney functions also started to improve. He was continued on Rocephin and completed about 6 days course of antibiotic. GI was also consulted for swelling of his abdomen and his lower extremities. Ultrasound was done and showed mild to moderate ascites. GI service that the patient can be discharged on Lasix and see her response. Patient will thus be discharged on Lasix and we'll have to follow with cardiology and primary care doctors after discharge for follow-up Patient Condition at Discharge: Serious Plan - Discharge Summary Discharge Rx Participant: No New Discharge Prescriptions: New Spironolactone [Aldactone] 25 mg PO DAILY #90 tab Furosemide [Lasix] 40 mg PO BID@0900,1600 #60 tab Continue Apixaban [Eliquis] 2.5 mg PO BID #60 tablet Aspirin 81 mg PO DAILY #30 chew Atorvastatin [Lipitor] 40 mg PO DAILY #30 tab Metoprolol Tartrate [Lopressor] 25 mg PO BID #60 tab Nitroglycerin Sl Tabs [Nitrostat] 0.4 mg SUBLINGUAL Q5M PRN #30 tab PRN Reason: Chest Pain Isosorbide Mononitrate ER [Imdur] 15 mg PO DAILY Levothyroxine Sodium [Synthroid] 100 mcg PO DAILY Discontinued Furosemide [Lasix] 60 mg PO BID #180 tab Discharge Medication List Apixaban [Eliquis] 2.5 mg PO BID #60 tablet 03/17/18 [Rx] Aspirin 81 mg PO DAILY #30 chew 03/17/18 [Rx] Atorvastatin [Lipitor] 40 mg PO DAILY #30 tab 03/17/18 [Rx] Metoprolol Tartrate [Lopressor] 25 mg PO BID #60 tab 03/17/18 [Rx] Nitroglycerin Sl Tabs [Nitrostat] 0.4 mg SUBLINGUAL Q5M PRN #30 tab 03/17/18 [Rx ] Isosorbide Mononitrate ER [Imdur] 15 mg PO DAILY 05/18/18 [History] Levothyroxine Sodium [Synthroid] 100 mcg PO DAILY 07/03/18 [History] Spironolactone [Aldactone] 25 mg PO DAILY #90 tab 07/05/18 [Rx] Furosemide [Lasix] 40 mg PO BID@0900,1600 #60 tab 07/08/18 [Rx] Follow up Appointment(s)/Referral(s): Angie Palomares MD [Primary Care Provider] - 07/14/18 2:00 pm Cole Bucio MD [STAFF PHYSICIAN] - 2 Weeks [facility] Visiting Nurse, [NON-STAFF] - As Needed Activity/Diet/Wound Care/Special Instructions: DC pending recommendations from GI regarding Paracentesis if they want to do it while pt is inpatient or as an outpatient. and also clarification from cardiology if patient needs to be dced on lasix 40 mg bid vs lasix 60 mg bid Discharge Disposition: HOME SELF-CARE
--- NOTE | 2018-07-08 14:34 | P.PN ---
Subjective This is a pleasant 87-year-old gentleman who follows regularly with Dr. Bucio in the office. Patient has history of prior congestive cardiac failure with his most recent admission being in February of this year, at which time an echocardiogram with Doppler study was performed which revealed an ejection fraction of 45-50%, moderate to severe mitral regurg and moderate to severe tricuspid regurg noted at that time. Patient also underwent a cardiac catheterization in February by Dr. Bucio which revealed diffuse coronary artery disease with an intermediate lesion in the LAD in the proximal and midportion, right coronary artery and circumflex were free of any disease, and medical therapy was advised at that time. Echocardiogram obtained this admission reveals preserved LV systolic function with ejection fraction 60-65%, moderately dilated left atrium, severe tricuspid regurgitation and trivial pericardial effusion. He was transitioned to PO lasix yesterday. His echo was again reviewed by Dr. Chapman and feels there is some degree of possible amyloidosis with possibly restrictive cardiomyopathy. Blood pressure 123/76 herat rate 67 afebrile maintaining oxygen saturation on room air. Laboratory data reviewed, sodium 136, potassium 3.4, creatinine 1.27, repeat NT proBNP 10, 900. GI has evaluated the abdominal ultrasound and has decided to hold off for now due to anticoagulation. He is seen and examined sitting up in the chair reading. He denies chest pain, shortness of breath at rest or with exertion, dizziness or palpitations. GENERAL: This is an 87-year-old male in no apparent distress at the time of my examination. HEENT: Head is atraumatic, normocephalic. Pupils are equal, round. Sclerae anicteric. Conjunctivae are clear. Mucous membranes of the mouth are moist. Neck is supple. There is elevated jugular venous distention. No carotid bruit is heard. LUNGS: Clear to auscultation no wheezes, rales or rhonchi. No chest wall tenderness is noted on palpation or with deep breathing. HEART: Irregularly irregular with systolic murmur, no rubs or gallops. S1 and S2 heard. ABDOMEN: Soft, nontender. Bowel sounds are heard. No organomegaly noted. EXTREMITIES: 1+ bilateral lower extremity edema. No change from yesterday's exam. ASSESSMENT Acute on chronic diastolic heart failure. 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 Stable for discharge to follow up with Dr. Bucio in 2 weeks. Repeat BMP in 1 week. Nurse Practitioner note has been reviewed, I agree with a documented findings and plan of care. Patient was seen and examined. Objective - Vital Signs Vital signs: Vital Signs Temp 97.7 F 07/08/18 07:00 Pulse 67 07/08/18 07:00 Resp 16 07/08/18 07:00 BP 123/76 07/08/18 07:00 Pulse Ox 94 L 07/08/18 07:00 Intake & Output 07/07/18 07/08/18 07/08/18 18:59 06:59 18:59 Intake Total 450 222 Balance 450 222 Weight 91.3 kg Intake: Oral 450 222 Other: Voiding Method Self-Catheterization Self-Catheterization Self-Catheterization # Voids 1 - Labs CBC & Chem 7: 07/06/18 10:06 07/08/18 07:20 Labs: Abnormal Lab Results - Last 24 Hours (Table) 07/08/18 Range/Units 07:20 Sodium 136 L (137-145) mmol/L Potassium 3.4 L (3.5-5.1) mmol/L BUN 25 H (9-20) mg/dL Creatinine 1.27 H (0.66-1.25) mg/dL Total Bilirubin 2.6 H (0.2-1.3) mg/dL AST 109 H (17-59) U/L Alkaline Phosphatase 185 H (38-126) U/L Total Protein 6.2 L (6.3-8.2) g/dL Albumin 3.1 L (3.5-5.0) g/dL
[2018-07-08] MEDS ORDERED: SPIRONOLACTONE 25 MG TAB PO SCH (21:00)
== END 2018-07-08 13:30 | disposition home or self-care (01) | DRG 291 ==
LOC: EC 23:01 → 4SSUR 07-03 02:52
PROVIDERS: ADMIT Hospitalist; ATTEND Hospitalist
DX: I13.0 Hypertensive heart and chronic kidney disease with heart failure and stage 1 through stage 4 chronic kidney disease, or unspecified chronic kidney disease (principal); I50.33 Acute on chronic diastolic (congestive) heart failure; E87.1 Hypo-osmolality and hyponatremia; N17.9 Acute kidney failure, unspecified; N39.0 Urinary tract infection, site not specified; R18.8 Other ascites; D69.6 Thrombocytopenia, unspecified; I08.1 Rheumatic disorders of both mitral and tricuspid valves; I48.2 Chronic atrial fibrillation; E03.9 Hypothyroidism, unspecified; N18.9 Chronic kidney disease, unspecified; E87.6 Hypokalemia; H91.90 Unspecified hearing loss, unspecified ear; I25.10 Atherosclerotic heart disease of native coronary artery without angina pectoris; N50.89 Other specified disorders of the male genital organs; R77.9 Abnormality of plasma protein, unspecified; B96.20 Unspecified Escherichia coli [E. coli] as the cause of diseases classified elsewhere; Z79.01 Long term (current) use of anticoagulants; Z79.82 Long term (current) use of aspirin; Z79.890 Hormone replacement therapy; Z79.899 Other long term (current) drug therapy; Z96.652 Presence of left artificial knee joint; Z87.891 Personal history of nicotine dependence; Z86.010 Personal history of colon polyps; Z80.0 Family history of malignant neoplasm of digestive organs
CPT/HCPCS: 36415; 71046; 76705; 80048; 80053; 81001; 82553; 83735; 83880; 84439; 84443; 84484; 85025; 85610; 85730; 87077; 87086; 87186; 93005; 93306; 96365; 96375; 99284

== ENCOUNTER 2018-08-06 04:05 | Emergency (ER) | payer MEDICARE ==
[2018-08-06 04:30] LABS: Anisocytosis Slight; Basophils % (A) 0 %; Eosinophils # (A) 0.1 k/uL (0-0.7); Eosinophils % (A) 3 %; HCT 43.9 % (39.0-53.0); HGB 14.2 gm/dL (13.0-17.5); Lymphocytes # (A) 0.6 k/uL (1.0-4.8); Lymphocytes % (A) 12 %; MCH 30.8 pg (25.0-35.0); MCHC 32.3 g/dL (31.0-37.0); MCV 95.5 fL (80.0-100.0); Mean Platelet Volume 7.8; Monocytes # (A) 0.3 k/uL (0-1.0); Monocytes % (A) 7 %; Neutrophils # (A) 3.4 k/uL (1.3-7.7); Neutrophils % (A) 75 %; Platelet Count 113 k/uL (150-450); RDW 16.7 % (11.5-15.5); WBC 4.6 k/uL (3.8-10.6)
[2018-08-06 04:40] LABS: Albumin 3.5 g/dL (3.5-5.0); Calcium 9.4 mg/dL (8.4-10.2); Potassium 4.3 mmol/L (3.5-5.1); Total Bilirubin 3.3 mg/dL (0.2-1.3); Total Protein 6.6 g/dL (6.3-8.2)
[2018-08-06 04:48] LABS: Appearance,Urine Cloudy (Clear); Bilirubin,Urine Negative (Negative); Blood,Urine Small (Negative); Color,Urine Yellow; Glucose,Urine (UA) Negative (Negative); Hyaline Casts,Urine 77 /lpf (0-2); Ketones,Urine Negative (Negative); Leukocyte Esterase,Urine Moderate (Negative); Mucus,Urine Occasional /hpf; Nitrite,Urine Negative (Negative); Protein,Urine 1+ (Negative); RBC,Urine 5 /hpf (0-5); Specific Gravity,Urine 1.014 (1.001-1.035); Squamous Epithelial Cell,Urine 2 /hpf (0-4); WBC,Urine 8 /hpf (0-5)
--- NOTE | 2018-08-06 05:11 | ED ---
Abdominal Pain HPI - General Chief Complaint: Abdominal Pain Stated Complaint: Abdominal Pain Time Seen by Provider: 08/06/18 04:16 Source: patient, EMS Mode of arrival: EMS Limitations: no limitations - History of Present Illness Initial Comments: This patient is a 87-year-old man who comes to be evaluated for abdominal pain. He indicates the pain started proximally 5-6 hours ago. He indicates the suprapubic area but then states that it moved up to the umbilical area. He states that the pain seemed to resolve as ambulance was bringing him here. He states that he feels well now. Complaint: abdominal pain Onset/Timin -: hour(s) Location: suprapubic Migration to: periumbilical Severity: moderate Quality: aching Consistency: constant, now resolved Improves With: nothing Worsens With: nothing Associated Symptoms: nausea - Related Data Home Medications Medication Instructions Recorded Confirmed Isosorbide Mononitrate ER [Imdur] 15 mg PO DAILY 05/18/18 08/06/18 Metoprolol Tartrate [Lopressor] 25 mg PO BID@0900,1400 08/06/18 08/06/18 Previous Rx's Medication Instructions Recorded Apixaban [Eliquis] 2.5 mg PO BID #60 tablet 03/17/18 Aspirin 81 mg PO DAILY #30 chew 03/17/18 Atorvastatin [Lipitor] 40 mg PO DAILY #30 tab 03/17/18 Nitroglycerin Sl Tabs [Nitrostat] 0.4 mg SUBLINGUAL Q5M PRN #30 tab 03/17/18 Spironolactone [Aldactone] 25 mg PO DAILY #90 tab 07/05/18 Furosemide [Lasix] 40 mg PO BID@0900,1600 #60 tab 07/08/18 Allergies Allergy/AdvReac Type Severity Reaction Status Date / Time No Known Allergies Allergy Verified 08/06/18 07:15 Review of Systems ROS Statement: Those systems with pertinent positive or pertinent negative responses have been documented in the HPI. ROS Other: All systems not noted in ROS Statement are negative. Constitutional: Denies: fever, chills Respiratory: Denies: cough, dyspnea Cardiovascular: Denies: chest pain, palpitations, edema Gastrointestinal: Reports: as per HPI, abdominal pain, nausea. Denies: vomiting , diarrhea, melena, hematochezia Genitourinary: Denies: dysuria, hematuria Musculoskeletal: Denies: back pain Neurological: Denies: headache, weakness, numbness Past Medical History Past Medical History: Atrial Fibrillation, Heart Failure, Hearing Disorder / Deafness, Thyroid Disorder Additional Past Medical History / Comment(s): Pt uses straight catheterization , [facility] HE[employer] [facility]VES History of Any Multi-Drug Resistant Organisms: None Reported Past Surgical History: Heart Catheterization, Hernia Repair, Orthopedic Surgery Additional Past Surgical History / Comment(s): left knee replacement, back surgery, prostste surgery Past Psychological History: No Psychological Hx Reported Smoking Status: Never smoker Past Alcohol Use History: None Reported Past Drug Use History: None Reported - Past Family History Father Family Medical History: Cancer Additional Family Medical History / Comment(s): pancreas/liver cancer Daughter(s) Family Medical History: Cancer Additional Family Medical History / Comment(s): 'some sort of GI cancer' General Exam Limitations: no limitations General appearance: alert, in no apparent distress Head exam: Present: atraumatic, normocephalic Eye exam: Present: normal appearance. Absent: scleral icterus, conjunctival injection ENT exam: Present: normal oropharynx Neck exam: Present: normal inspection Respiratory exam: Present: normal lung sounds bilaterally. Absent: respiratory distress, wheezes, rales, rhonchi, stridor Cardiovascular Exam: Present: regular rate, irregular rhythm, normal heart sounds. Absent: systolic murmur, diastolic murmur GI/Abdominal exam: Present: soft. Absent: distended, tenderness, guarding, rebound, rigid Extremities exam: Present: normal inspection, normal capillary refill, pedal edema. Absent: calf tenderness Back exam: Present: normal inspection. Absent: CVA tenderness (R), CVA tenderness (L) Neurological exam: Present: alert Skin exam: Present: warm, dry, intact, normal color. Absent: rash Course Vital Signs 08/06/18 08/06/18 08/06/18 04:06 05:30 06:00 Temperature 98.2 F 98 F Pulse Rate 82 71 60 Respiratory 20 20 18 Rate Blood Pressure 99/85 105/75 105/73 O2 Sat by Pulse 95 97 97 Oximetry 08/06/18 07:00 Temperature 98 F Pulse Rate 75 Respiratory 16 Rate Blood Pressure 104/64 O2 Sat by Pulse 97 Oximetry Medical Decision Making - Medical Decision Making This patient is a 7-year-old man presenting to be evaluated for abdominal pain. His pain had resolved just prior to the arrival by ambulance. His workup is unremarkable other than the mild elevation in his troponin, but he has chronically elevated troponin. I did discuss with him whether this could've represented anginal episode, but he is maintaining that the pain was mainly low in the abdomen, and he does not think it was cardiac in nature. He states that he feels well and wants to go home. He understands possibility of missed ME. He does agree to return should any symptoms recur or if he is feeling worse in anyway. Discussed return parameters. - Lab Data Result diagrams: 08/06/18 04:14 08/06/18 04:14 Lab Results 08/06/18 08/06/18 08/06/18 Range/Units 04:14 04:14 04:14 WBC 4.6 (3.8-10.6) k/uL RBC 4.60 (4.30-5.90) m/uL Hgb 14.2 (13.0-17.5) gm/dL Hct 43.9 (39.0-53.0) % MCV 95.5 (80.0-100.0) fL MCH 30.8 (25.0-35.0) pg MCHC 32.3 (31.0-37.0) g/dL RDW 16.7 H (11.5-15.5) % Plt Count 113 L (150-450) k/uL Neutrophils % 75 % Lymphocytes % 12 % Monocytes % 7 % Eosinophils % 3 % Basophils % 0 % Neutrophils # 3.4 (1.3-7.7) k/uL Lymphocytes # 0.6 L (1.0-4.8) k/uL Monocytes # 0.3 (0-1.0) k/uL Eosinophils # 0.1 (0-0.7) k/uL Basophils # 0.0 (0-0.2) k/uL Anisocytosis Slight Sodium 135 L (137-145) mmol/L Potassium 4.3 (3.5-5.1) mmol/L Chloride 97 L (98-107) mmol/L Carbon Dioxide 30 (22-30) mmol/L Anion Gap 8 mmol/L BUN 29 H (9-20) mg/dL Creatinine 1.30 H (0.66-1.25) mg/dL Est GFR (CKD-EPI)AfAm 57 (>60 ml/min/1.73 sqM) Est GFR (CKD-EPI)NonAf 49 (>60 ml/min/1.73 sqM) Glucose 123 H (74-99) mg/dL Plasma Lactic Acid Prabhu 1.5 (0.7-2.0) mmol/L Calcium 9.4 (8.4-10.2) mg/dL Total Bilirubin 3.3 H (0.2-1.3) mg/dL AST 72 H (17-59) U/L ALT 48 (21-72) U/L Alkaline Phosphatase 199 H (38-126) U/L Troponin I (0.000-0.034) ng/mL Total Protein 6.6 (6.3-8.2) g/dL Albumin 3.5 (3.5-5.0) g/dL Amylase 42 (30-110) U/L Lipase 237 (23-300) U/L Urine Color Urine Appearance (Clear) Urine pH (5.0-8.0) Ur Specific Rosser (1.001-1.035) Urine Protein (Negative) Urine Glucose (UA) (Negative) Urine Ketones (Negative) Urine Blood (Negative) Urine Nitrite (Negative) Urine Bilirubin (Negative) Urine Urobilinogen (<2.0) mg/dL Ur Leukocyte Esterase (Negative) Urine RBC (0-5) /hpf Urine WBC (0-5) /hpf Ur Squamous Epith Cells (0-4) /hpf Hyaline Casts (0-2) /lpf Urine Mucus (None) /hpf 08/06/18 08/06/18 Range/Units 04:14 04:14 WBC (3.8-10.6) k/uL RBC (4.30-5.90) m/uL Hgb (13.0-17.5) gm/dL Hct (39.0-53.0) % MCV (80.0-100.0) fL MCH (25.0-35.0) pg MCHC (31.0-37.0) g/dL RDW (11.5-15.5) % Plt Count (150-450) k/uL Neutrophils % % Lymphocytes % % Monocytes % % Eosinophils % % Basophils % % Neutrophils # (1.3-7.7) k/uL Lymphocytes # (1.0-4.8) k/uL Monocytes # (0-1.0) k/uL Eosinophils # (0-0.7) k/uL Basophils # (0-0.2) k/uL Anisocytosis Sodium (137-145) mmol/L Potassium (3.5-5.1) mmol/L Chloride (98-107) mmol/L Carbon Dioxide (22-30) mmol/L Anion Gap mmol/L BUN (9-20) mg/dL Creatinine (0.66-1.25) mg/dL Est GFR (CKD-EPI)AfAm (>60 ml/min/1.73 sqM) Est GFR (CKD-EPI)NonAf (>60 ml/min/1.73 sqM) Glucose (74-99) mg/dL Plasma Lactic Acid Prabhu (0.7-2.0) mmol/L Calcium (8.4-10.2) mg/dL Total Bilirubin (0.2-1.3) mg/dL AST (17-59) U/L ALT (21-72) U/L Alkaline Phosphatase (38-126) U/L Troponin I 0.219 H* (0.000-0.034) ng/mL Total Protein (6.3-8.2) g/dL Albumin (3.5-5.0) g/dL Amylase (30-110) U/L Lipase (23-300) U/L Urine Color Yellow Urine Appearance Cloudy (Clear) Urine pH 5.0 (5.0-8.0) Ur Specific Rosser 1.014 (1.001-1.035) Urine Protein 1+ H (Negative) Urine Glucose (UA) Negative (Negative) Urine Ketones Negative (Negative) Urine Blood Small H (Negative) Urine Nitrite Negative (Negative) Urine Bilirubin Negative (Negative) Urine Urobilinogen 2.0 (<2.0) mg/dL Ur Leukocyte Esterase Moderate H (Negative) Urine RBC 5 (0-5) /hpf Urine WBC 8 H (0-5) /hpf Ur Squamous Epith Cells 2 (0-4) /hpf Hyaline Casts 77 H (0-2) /lpf Urine Mucus Occasional H (None) /hpf - EKG Data -: EKG Interpreted by Al EKG shows normal: axis (Normal), intervals (Normal), QRS complexes (Low-voltage QRS complexes), ST-T waves (Normal) Interpretation: other (Atrial fibrillation, rate proximal to 70 bpm. There are multiple ventricular beats.) Disposition Clinical Impression: Abdominal pain Disposition: HOME SELF-CARE Condition: Good Instructions: Abdominal Pain (ED) Is patient prescribed a controlled substance at d/c from ED?: No Referrals: Angie Palomares MD [Primary Care Provider] - 1-2 days
[2018-08-06 06:37] VITALS: TEMP 98
[2018-08-06 07:03] VITALS: BP 104/64; PULSE 75; RESP 16
--- NOTE | 2018-08-06 07:07 | CT ---
EXAMINATION TYPE: CT abdomen pelvis wo con DATE OF EXAM: 08/06/2018 COMPARISON: None HISTORY: Abdomnial pain CT DLP: 649.3 mGycm Automated exposure control for dose reduction was used. TECHNIQUE: Helical acquisition of images was performed from the lung bases through the pelvis. FINDINGS: There are bilateral pleural effusions slightly more on the right side. There is 1.5 cm calcified gran uloma in the right middle lobe. Heart is enlarged. There is small pericardial effusion. There is a la rge amount of ascites fluid in the abdomen. Bladder distends smoothly. Liver is relatively small and consistent with cirrhosis. There is no evidence of a splenic mass. There is no pancreatic mass. There is a 2 cm calcified gallstone. There is no adrenal mass. Kidneys have normal size. There is no hydro nephrosis. Ureters are not dilated. There is no sign of a bowel obstruction. There is no evidence of pneumoperitoneum. I see no intestinal wall thickening. There are spondylotic changes in the lumbar sp ine. There is hypertrophic spurring and disc space narrowing. IMPRESSION: LARGE AMOUNT OF ASCITES FLUID. CHANGES IN THE LIVER CONSISTENT WITH CIRRHOSIS. CARDIOMEGALY WITH PLEU RAL EFFUSIONS. SMALL PERICARDIAL EFFUSION. No evidence of a bowel obstruction. Mild intestinal ileus is probably present.
== END 2018-08-06 07:30 | disposition home or self-care (01) ==
LOC: EC 04:05
DX: R10.33 Periumbilical pain (principal); R11.0 Nausea; R79.89 Other specified abnormal findings of blood chemistry; I50.9 Heart failure, unspecified; I48.91 Unspecified atrial fibrillation; Z79.899 Other long term (current) drug therapy; Z95.818 Presence of other cardiac implants and grafts; Z96.652 Presence of left artificial knee joint
CPT/HCPCS: 36415; 74176; 80053; 81001; 82150; 83605; 83690; 84484; 85025; 93005; 99285

== ENCOUNTER 2018-08-07 06:28 | Emergency (ER) | payer MEDICARE ==
[2018-08-07 06:44] VITALS: TEMP 99
[2018-08-07 06:57] LABS: Anisocytosis Slight; Basophils % (A) 1 %; Eosinophils # (A) 0.3 k/uL (0-0.7); Eosinophils % (A) 5 %; HCT 42.9 % (39.0-53.0); HGB 13.8 gm/dL (13.0-17.5); Lymphocytes # (A) 0.9 k/uL (1.0-4.8); Lymphocytes % (A) 17 %; MCHC 32.2 g/dL (31.0-37.0); MCV 93.1 fL (80.0-100.0); Mean Platelet Volume 8.2; Monocytes # (A) 0.4 k/uL (0-1.0); Monocytes % (A) 8 %; Neutrophils # (A) 3.4 k/uL (1.3-7.7); Neutrophils % (A) 67 %; Platelet Count 128 k/uL (150-450); RBC 4.61 m/uL (4.30-5.90); RDW 16.8 % (11.5-15.5); WBC 5.1 k/uL (3.8-10.6)
[2018-08-07 07:03] LABS: INR 1.3 (<1.2); Partial Thromboplastin Time 30.2 sec (22.0-30.0)
--- NOTE | 2018-08-07 07:09 | XR ---
EXAMINATION TYPE: XR chest 2V DATE OF EXAM: 08/07/2018 HISTORY: Pain. REFERENCE: Previous study dated 07/06/2018. FINDINGS: The heart is enlarged. There is a stable right-sided pulmonary nodule and a questionable le ft-sided pulmonary nodule. There is blunting of both CP angles. I could not exclude effusions or pleu ral reactions. There has been no significant interval change in the appearance of the chest. IMPRESSION: 1. CARDIOMEGALY. 2. BILATERAL PLEURAL REACTIONS. 3. BILATERAL PULMONARY NODULES.
--- NOTE | 2018-08-07 07:09 | XR ---
EXAMINATION TYPE: XR shoulder complete LT , 3 VIEWS DATE OF EXAM ORDERED: 08/07/2018 HISTORY: Pain. COMPARISON: None. FINDINGS: There are hypertrophic changes present in the left AC joint. No fracture or dislocation is seen. IMPRESSION: 1. NO ACUTE OSSEOUS LESION. 2. DEGENERATIVE CHANGE.
[2018-08-07 07:11] LABS: Albumin 3.6 g/dL (3.5-5.0); Calcium 9.2 mg/dL (8.4-10.2); Potassium 4.5 mmol/L (3.5-5.1); Total Bilirubin 3.5 mg/dL (0.2-1.3); Total Protein 6.9 g/dL (6.3-8.2)
--- NOTE | 2018-08-07 07:20 | ED ---
General Adult HPI - General Chief complaint: Extremity Injury, Upper Stated complaint: Shoulder pain Time Seen by Provider: 08/07/18 07:03 Source: patient, EMS, RN notes reviewed Mode of arrival: EMS Limitations: no limitations - History of Present Illness Initial comments: 87-year-old male presents for evaluation of left shoulder and arm pain. Patient 's symptoms began at 5 AM just upon wakening. Patient states he rolled over and developed left shoulder pain radiating down his arm. Denies chest pain or dyspnea. Denies pain in the arm at the time my evaluation. He has some mild persistent left shoulder pain which is worse with movement. Patient has history of atrial fibrillation, CAD, and congestive heart failure. He is currently on Eliquis. Patient is presenting with this complaint is concerned it may be related to his heart. No abdominal pain. No nausea vomiting. No diaphoresis. Patient has bilateral lower extremity swelling which he states is chronic. - Related Data Home Medications Medication Instructions Recorded Confirmed Isosorbide Mononitrate ER [Imdur] 15 mg PO DAILY 05/18/18 08/07/18 Metoprolol Tartrate [Lopressor] 25 mg PO BID@0900,1400 08/06/18 08/07/18 Previous Rx's Medication Instructions Recorded Apixaban [Eliquis] 2.5 mg PO BID #60 tablet 03/17/18 Aspirin 81 mg PO DAILY #30 chew 03/17/18 Atorvastatin [Lipitor] 40 mg PO DAILY #30 tab 03/17/18 Nitroglycerin Sl Tabs [Nitrostat] 0.4 mg SUBLINGUAL Q5M PRN #30 tab 03/17/18 Spironolactone [Aldactone] 25 mg PO DAILY #90 tab 07/05/18 Furosemide [Lasix] 40 mg PO BID@0900,1600 #60 tab 07/08/18 traMADol HCL [Ultram] 50 mg PO Q8HR PRN 3 Days #12 tab 08/07/18 Allergies Allergy/AdvReac Type Severity Reaction Status Date / Time No Known Allergies Allergy Verified 08/07/18 06:44 Review of Systems ROS Statement: Those systems with pertinent positive or pertinent negative responses have been documented in the HPI. ROS Other: All systems not noted in ROS Statement are negative. Past Medical History Past Medical History: Atrial Fibrillation, Heart Failure, Hearing Disorder / Deafness, Thyroid Disorder Additional Past Medical History / Comment(s): Pt uses straight catheterization , LEAKY HEART VALVES History of Any Multi-Drug Resistant Organisms: None Reported Past Surgical History: Heart Catheterization, Hernia Repair, Orthopedic Surgery Additional Past Surgical History / Comment(s): left knee replacement, back surgery, prostste surgery Past Psychological History: No Psychological Hx Reported Smoking Status: Never smoker Past Alcohol Use History: None Reported Past Drug Use History: None Reported - Past Family History Father Family Medical History: Cancer Additional Family Medical History / Comment(s): pancreas/liver cancer Daughter(s) Family Medical History: Cancer Additional Family Medical History / Comment(s): 'some sort of GI cancer' General Exam Limitations: no limitations General appearance: alert, in no apparent distress Head exam: Present: atraumatic, normocephalic Eye exam: Present: normal appearance, PERRL ENT exam: Present: normal exam Neck exam: Present: normal inspection. Absent: tenderness, meningismus Respiratory exam: Present: normal lung sounds bilaterally, wheezes (trace). Absent: respiratory distress, rales, rhonchi Cardiovascular Exam: Present: regular rate, irregular rhythm GI/Abdominal exam: Present: soft. Absent: distended, tenderness, guarding Extremities exam: Present: pedal edema (1+ bilateral pedal edema) Neurological exam: Present: alert, oriented X3, CN II-XII intact. Absent: motor sensory deficit Psychiatric exam: Present: normal affect, normal mood Skin exam: Present: warm, dry, intact. Absent: cyanosis, diaphoretic Course Vital Signs 08/07/18 08/07/18 06:39 08:35 Temperature 99 F Pulse Rate 88 65 Respiratory 20 18 Rate Blood Pressure 95/66 101/69 O2 Sat by Pulse 99 94 L Oximetry - Reevaluation(s) Reevaluation #1: 08/07/18 07:19 Labs and x-rays ordered as advanced triage protocol. EKG Findings - EKG Comments: EKG Findings:: EKG: Atrial fibrillation rate of 69, QRS duration 104, QTC 471, no definitive signs of acute ischemia, no ST segment elevation Medical Decision Making - Medical Decision Making 87-year-old male presenting for left shoulder pain. Pain sounds musculoskeletal and is reproducible on exam patient is concerned this may be his heart. He does receive workup in the emergency department which shows chest x-ray with left-sided pleural effusion, no central pulmonary edema, no focal pneumonia as well as cardiomegaly. Shoulder x-ray shows some hypertrophy of the before meals joint as well as diffuse osteoarthritis. Patient has normal white blood cell count, stable hemoglobin, mildly elevated creatinine which is at baseline. Total bili elevated which is also baseline. Troponin 0.256 which is chronic and stable for this patient. I did discuss this at length with the patient that his heart enzymes elevated, patient prefers to be discharged as this is chronic troponin elevation. Patient had a heart cath in February of this year which showed CAD, no intervention. Recommended maximal medical therapy at that time. Patient is on antiplatelet and anticoagulant as well as statin. Given his history and exam I feel this is more related to musculoskeletal shoulder pain rather than acute TX. - Lab Data Result diagrams: 08/07/18 06:32 08/07/18 06:32 Lab Results 08/07/18 08/07/18 08/07/18 Range/Units 06:32 06:32 06:32 WBC 5.1 (3.8-10.6) k/uL RBC 4.61 (4.30-5.90) m/uL Hgb 13.8 (13.0-17.5) gm/dL Hct 42.9 (39.0-53.0) % MCV 93.1 (80.0-100.0) fL MCH 30.0 (25.0-35.0) pg MCHC 32.2 (31.0-37.0) g/dL RDW 16.8 H (11.5-15.5) % Plt Count 128 L (150-450) k/uL Neutrophils % 67 % Lymphocytes % 17 % Monocytes % 8 % Eosinophils % 5 % Basophils % 1 % Neutrophils # 3.4 (1.3-7.7) k/uL Lymphocytes # 0.9 L (1.0-4.8) k/uL Monocytes # 0.4 (0-1.0) k/uL Eosinophils # 0.3 (0-0.7) k/uL Basophils # 0.0 (0-0.2) k/uL Anisocytosis Slight PT (9.0-12.0) sec INR (<1.2) APTT (22.0-30.0) sec Sodium 139 (137-145) mmol/L Potassium 4.5 (3.5-5.1) mmol/L Chloride 100 (98-107) mmol/L Carbon Dioxide 29 (22-30) mmol/L Anion Gap 10 mmol/L BUN 29 H (9-20) mg/dL Creatinine 1.29 H (0.66-1.25) mg/dL Est GFR (CKD-EPI)AfAm 57 (>60 ml/min/1.73 sqM) Est GFR (CKD-EPI)NonAf 50 (>60 ml/min/1.73 sqM) Glucose 91 (74-99) mg/dL Calcium 9.2 (8.4-10.2) mg/dL Total Bilirubin 3.5 H (0.2-1.3) mg/dL AST 74 H (17-59) U/L ALT 42 (21-72) U/L Alkaline Phosphatase 165 H (38-126) U/L Total Creatine Kinase 187 H (55-170) U/L CK-MB (CK-2) 3.0 H (0.0-2.4) ng/mL CK-MB (CK-2) Rel Index 1.6 Troponin I 0.256 H* (0.000-0.034) ng/mL Total Protein 6.9 (6.3-8.2) g/dL Albumin 3.6 (3.5-5.0) g/dL 08/07/18 Range/Units 06:32 WBC (3.8-10.6) k/uL RBC (4.30-5.90) m/uL Hgb (13.0-17.5) gm/dL Hct (39.0-53.0) % MCV (80.0-100.0) fL MCH (25.0-35.0) pg MCHC (31.0-37.0) g/dL RDW (11.5-15.5) % Plt Count (150-450) k/uL Neutrophils % % Lymphocytes % % Monocytes % % Eosinophils % % Basophils % % Neutrophils # (1.3-7.7) k/uL Lymphocytes # (1.0-4.8) k/uL Monocytes # (0-1.0) k/uL Eosinophils # (0-0.7) k/uL Basophils # (0-0.2) k/uL Anisocytosis PT 13.0 H (9.0-12.0) sec INR 1.3 H (<1.2) APTT 30.2 H (22.0-30.0) sec Sodium (137-145) mmol/L Potassium (3.5-5.1) mmol/L Chloride (98-107) mmol/L Carbon Dioxide (22-30) mmol/L Anion Gap mmol/L BUN (9-20) mg/dL Creatinine (0.66-1.25) mg/dL Est GFR (CKD-EPI)AfAm (>60 ml/min/1.73 sqM) Est GFR (CKD-EPI)NonAf (>60 ml/min/1.73 sqM) Glucose (74-99) mg/dL Calcium (8.4-10.2) mg/dL Total Bilirubin (0.2-1.3) mg/dL AST (17-59) U/L ALT (21-72) U/L Alkaline Phosphatase (38-126) U/L Total Creatine Kinase (55-170) U/L CK-MB (CK-2) (0.0-2.4) ng/mL CK-MB (CK-2) Rel Index Troponin I (0.000-0.034) ng/mL Total Protein (6.3-8.2) g/dL Albumin (3.5-5.0) g/dL Disposition Clinical Impression: Atrial fibrillation, Troponin level elevated, Osteoarthritis of left shoulder Disposition: HOME SELF-CARE Condition: Fair Instructions: Osteoarthritis (ED) Prescriptions: traMADol HCL [Ultram] 50 mg PO Q8HR PRN 3 Days #12 tab PRN Reason: Pain Is patient prescribed a controlled substance at d/c from ED?: No Referrals: Angie Palomares MD [Primary Care Provider] - 1-2 days Cole Bucio MD [STAFF PHYSICIAN] - 1-2 days Time of Disposition: 09:03
[2018-08-07 07:30] LABS: Troponin I 0.256 ng/mL (0.000-0.034)
[2018-08-07 08:36] VITALS: BP 101/69; PULSE 65; RESP 18
== END 2018-08-07 09:12 | disposition home or self-care (01) ==
LOC: EC 06:28
DX: M19.012 Primary osteoarthritis, left shoulder (principal); I48.91 Unspecified atrial fibrillation; R74.8 Abnormal levels of other serum enzymes; J90 Pleural effusion, not elsewhere classified; I25.10 Atherosclerotic heart disease of native coronary artery without angina pectoris; I50.9 Heart failure, unspecified; Z79.01 Long term (current) use of anticoagulants; Z79.02 Long term (current) use of antithrombotics/antiplatelets; Z79.899 Other long term (current) drug therapy; Z95.5 Presence of coronary angioplasty implant and graft; Z96.652 Presence of left artificial knee joint
CPT/HCPCS: 36415; 71046; 80053; 82550; 82553; 83880; 84484; 85025; 85610; 85730; 93005; 99284

== ENCOUNTER 2019-01-15 10:25 | Emergency (ER) | payer MEDICARE ==
[2019-01-15 10:41] VITALS: RESP 18
--- NOTE | 2019-01-15 12:11 | CT ---
EXAMINATION TYPE: CT brain annamaria james DATE OF EXAM: 01/15/2019 COMPARISON: NONE HISTORY: Fall, hit head CT DLP: 1402.2 mGycm Automated exposure control for dose reduction was used. TECHNIQUE: CT scan of the head and cervical spine are performed without contrast. FINDINGS: BRAIN: There are generalized changes of sulcal prominence and ventriculomegaly, compatible with atrop hic change. There is periventricular white matter lucency, compatible with chronic white matter ische dane change. There is no acute focal lesion, mass effect or midline shift identified. I do not see julio dence of intracranial blood. There is some mucoperiosteal thickening involving a left maxillary sinus. The remainder the visualize d paranasal sinuses and mastoids are clear. There is no depressed skull fracture. IMPRESSION: 1. NO ACUTE INTRACRANIAL ABNORMALITY. 2. DEGENERATIVE CHANGE. 3. LEFT MAXILLARY SINUS MUCOSAL DISEASE. CERVICAL SPINE: Visualized portions of the lungs are clear. Prevertebral soft tissues are normal. Vertebral body height and alignment are maintained. Atlantoaxial relationships are normal. There is some pseudocystic formation in the odontoid. There is diffuse degenerative disc disease and hypertrophic spondylosis throughout the cervical spine . There is diffuse uncovertebral joint disease. There is facet arthropathy present throughout the cer vical spine. No fractures are seen. No definite protrusion is identified. IMPRESSION: 1. NO ACUTE OSSEOUS ABNORMALITY. 2. MODERATE DEGENERATIVE CHANGE.
--- NOTE | 2019-01-15 12:42 | ED ---
Fall HPI - General Source: patient Mode of arrival: ambulatory <Jaison Cook - Last Filed: 01/15/19 13:14> <BrianTres stein Donna - Last Filed: 01/16/19 08:38> - General Chief Complaint: Fall Stated Complaint: Fall, hit head Time Seen by Provider: 01/15/19 10:42 - History of Present Illness Initial Comments: Patient is an 88-year-old male presents emergency department after fall. Patient reports he was at the house when his cane slipped and he fell forward. Patient reports that he lost his balance causing his fall. Patient does report a chronic history of poor balance for which she uses a cane and a walker. Patient denied loss of consciousness at time of incident. Patient states that he is on blood thinners (eliquis). Patient reports easy bruising. Patient reports no pain except mild soreness in the right shoulder. Patient denies headache, burning, nausea, vomiting. Patient denies taking any medication to relieve the symptoms. (Jaison Cook) - Related Data Home Medications Medication Instructions Recorded Confirmed Isosorbide Mononitrate ER [Imdur] 15 mg PO DAILY 05/18/18 08/07/18 Metoprolol Tartrate [Lopressor] 25 mg PO BID@0900,1400 08/06/18 08/07/18 Previous Rx's Medication Instructions Recorded Apixaban [Eliquis] 2.5 mg PO BID #60 tablet 03/17/18 Aspirin 81 mg PO DAILY #30 chew 03/17/18 Atorvastatin [Lipitor] 40 mg PO DAILY #30 tab 03/17/18 Nitroglycerin Sl Tabs [Nitrostat] 0.4 mg SUBLINGUAL Q5M PRN #30 tab 03/17/18 Spironolactone [Aldactone] 25 mg PO DAILY #90 tab 07/05/18 Furosemide [Lasix] 40 mg PO BID@0900,1600 #60 tab 07/08/18 traMADol HCL [Ultram] 50 mg PO Q8HR PRN 3 Days #12 tab 08/07/18 Allergies Allergy/AdvReac Type Severity Reaction Status Date / Time No Known Allergies Allergy Verified 01/15/19 10:41 Review of Systems ROS Other: All systems not noted in ROS Statement are negative. <Jaison Cook - Last Filed: 01/15/19 13:14> ROS Other: All systems not noted in ROS Statement are negative. <Tres Lagunas - Last Filed: 01/16/19 08:38> ROS Statement: Those systems with pertinent positive or pertinent negative responses have been documented in the HPI. Past Medical History Past Medical History: Atrial Fibrillation, Heart Failure, Hearing Disorder / Deafness, Thyroid Disorder Additional Past Medical History / Comment(s): Pt uses straight catheterization , LEAKY HEART VALVES History of Any Multi-Drug Resistant Organisms: None Reported Past Surgical History: Heart Catheterization, Hernia Repair, Orthopedic Surgery Additional Past Surgical History / Comment(s): left knee replacement, back surgery, prostste surgery Past Psychological History: No Psychological Hx Reported Smoking Status: Never smoker Past Alcohol Use History: None Reported Past Drug Use History: None Reported - Past Family History Father Family Medical History: Cancer Additional Family Medical History / Comment(s): pancreas/liver cancer Daughter(s) Family Medical History: Cancer Additional Family Medical History / Comment(s): 'some sort of GI cancer' <Jaison Cook - Last Filed: 01/15/19 13:14> General Exam Limitations: no limitations General appearance: alert, in no apparent distress Head exam: Present: normocephalic, other (No raccoon eyes or Alvarado sign.). Absent: atraumatic (1 cm abrasion on the right frontal region.) Eye exam: Present: normal appearance, PERRL, EOMI Pupils: Present: normal accommodation ENT exam: Present: normal exam, mucous membranes moist, TM's normal bilaterally (No hemotympanum) Neck exam: Present: normal inspection, full ROM. Absent: tenderness Respiratory exam: Present: normal lung sounds bilaterally Cardiovascular Exam: Present: regular rate, normal rhythm, normal heart sounds Extremities exam: Present: full ROM (+2 ulnar and radial pulses, bilaterally. Centimeter abrasion on the right lateral shoulder. Patient does have full range of motion bilateral upper and lower extremities.), tenderness (Mild pain in the right shoulder.), normal capillary refill Back exam: Present: normal inspection. Absent: tenderness Neurological exam: Present: alert, oriented X3 Psychiatric exam: Present: normal affect, normal mood Skin exam: Present: warm, intact, normal color <Jaison Cook - Last Filed: 01/15/19 13:14> Course Vital Signs 01/15/19 01/15/19 10:36 13:08 Temperature 97.9 F 98 F Pulse Rate 64 61 Respiratory 18 18 Rate Blood Pressure 98/61 98/68 O2 Sat by Pulse 97 94 L Oximetry Medical Decision Making <Jaison Cook - Last Filed: 01/15/19 13:14> <Tres Lagunas - Last Filed: 01/16/19 08:38> - Medical Decision Making Patient is an 80-year-old male presents emergency department after fall. Computed tomography scan of the brain and C-spine is negative for a acute fractures, dislocations, hemorrhage or any space-occupying lesions. The abrasion of the right shoulder was covered with triple antibiotic and gauze. Patient advised possible options of assisted-living and using mobility aids. At this point I do not suspect any imaging is necessary for right shoulder because the patient has full range of motion the pain is only exacerbated on palpation. Patient advised to follow with primary care. Strict return parameters were thoroughly discussed with the patient and family members who are understandable and agreeable. Case discussed with physician. (Jaison Cook) 80-year-old male, evaluated by myself. Resting comfortably stable vitals. He did have head trauma, he has right forehead abrasion and minimal hematoma. Head CT performed which is negative for intracranial hemorrhage. Patient is on eliquis, and can be closely monitored. His daughter who is at bedside will stay with him, they will return with any changes or concerns. (Tres Lagunas) Disposition Is patient prescribed a controlled substance at d/c from ED?: No Time of Disposition: 12:42 <Jaison Cook - Last Filed: 01/15/19 13:14> <Tres Lagunas - Last Filed: 01/16/19 08:38> Clinical Impression: Fall Disposition: HOME SELF-CARE Condition: Stable Instructions (If sedation given, give patient instructions): Fall Prevention for Older Adults (ED) Additional Instructions: Please return to emergency department if he starts to develop headaches, blurry vision, nausea, vomiting, dizziness or light headedness. Please follow-up with primary care. Please return to emergency department if symptoms worsen. Referrals: Angie Palomares MD [Primary Care Provider] - 1-2 days
[2019-01-15 13:09] VITALS: BP 98/68; PULSE 61; TEMP 98
== END 2019-01-15 13:08 | disposition home or self-care (01) ==
LOC: EC 10:25
DX: S00.83XA Contusion of other part of head, initial encounter (principal); S40.211A Abrasion of right shoulder, initial encounter; I50.9 Heart failure, unspecified; I48.91 Unspecified atrial fibrillation; Z79.899 Other long term (current) drug therapy; Z95.5 Presence of coronary angioplasty implant and graft; Z96.652 Presence of left artificial knee joint; W01.198A Fall on same level from slipping, tripping and stumbling with subsequent striking against other object, initial encounter
CPT/HCPCS: 70450; 72125; 99283

== ENCOUNTER 2019-02-07 13:30 | Inpatient (IN) | payer MEDICARE ==
[2019-02-07] MEDS ORDERED: IPRATROPIUM 0.5 MG/2.5 ML NEBU INHALATION STA (14:52)
[2019-02-07] MEDS ORDERED: ALBUTEROL NEBULIZED 2.5 MG/3 ML INHALATION STA (14:52)
[2019-02-07] MEDS ORDERED: DEXAMETHASONE 4 MG TAB PO STA (14:53)
--- NOTE | 2019-02-07 14:58 | ED ---
General Adult HPI - General Chief complaint: Shortness of Breath Stated complaint: SOB Time Seen by Provider: 02/07/19 14:26 Source: patient Mode of arrival: wheelchair Limitations: no limitations - History of Present Illness Initial comments: Dictation was produced using [employer] dictation software. please excuse any grammatical, word or spelling errors. Chief Complaint: 88-year-old male past medical history atrial fibrillation ablation heart failure presents for shortness of breath and cough. History of Present Illness: She is an 88-year-old male he has past medical history of heart failure and atrial fibrillation he is on anticoagulation medications presents with noisy breathing. He was seen by his physical thera pist at home today told to come to the emergency department for his breathing symptoms. Patient has a history of heart failure. He has been having a productive cough over the last 48 hours. Patient denies any constitutional symptoms. He has been around his family member who also has similar symptoms and ended up getting admitted for pneumonia. Denies any history of COPD or asthma. He does have remote history of smoking from early adulthood. The ROS documented in this emergency department record has been reviewed and confirmed by me. Those systems with pertinent positive or negative responses have been documented in the HPI. All other systems are other negative and/or noncontributory. PHYSICAL EXAM: General Impression: Alert and oriented x3, not in acute distress HEENT: Normocephalic atraumatic, extra-ocular movements intact, pupils equal and reactive to light bilaterally, mucous membranes moist. Cardiovascular: Heart regular rate and rhythm, S1&S2 audible, no murmurs, rubs or gallops Chest: Bilateral lung wheezing Abdomen: Bowel sounds present, abdomen soft, non-tender, non-distended, no organomegaly Musculoskeletal: Pulses present and equal in all extremities, no peripheral edema Motor: no focal deficits noted Neurological: CN II-XII grossly intact, no focal motor or sensory deficits noted Skin: Intact with no visualized rashes Psych: Normal affect and mood ED course: 88-year-old male with clinical presentation consistent with acute bronchitis. Vital signs upon arrival are within acceptable limits.Patient referred breathing treatment. He is also given Decadron. Laboratory evaluation obtained. CBC is unremarkable. Metabolic panel shows elevated BNP creatinine ratio. His BUN is 72. Patient has been naturopathic peptide of 8000 which is above his usual limit. Patient denies any improvement of symptoms after breathing treatment. X-ray shows cardiomegaly and chronic parenchymal changes. It's without any acute pulmonary processes. Given patient's symptomatology there is concern that patient's symptoms reflect acute decompensated heart failure. He does report exertional dyspnea and increase swelling to his lower legs with mild exacerbation of orthopnea as well. Patient given 40 mg of IV Lasix. She decision-making was made with patient and family members. They're requested patient be admitted observation for diuresis and cardiology cons ultation. EKG interpretation: Ventricular rate 59, A. fib, QS 90, QTc 435. No MA prolongation, no QTC prolongation, no ST or T-wave changes noted. Overall, this EKG is unremarkable - Related Data Home Medications Medication Instructions Recorded Confirmed Isosorbide Mononitrate ER [Imdur] 15 mg PO DAILY 05/18/18 02/07/19 Carvedilol [Coreg] 3.125 mg PO BID 02/07/19 02/07/19 Furosemide [Lasix] 60 mg PO BID@0900,1600 02/07/19 02/07/19 Levothyroxine Sodium [Synthroid] 137 mcg PO DAILY 02/07/19 02/07/19 Spironolactone [Aldactone] 25 mg PO BID 02/07/19 02/07/19 Previous Rx's Medication Instructions Recorded Apixaban [Eliquis] 2.5 mg PO BID #60 tablet 03/17/18 Atorvastatin [Lipitor] 40 mg PO DAILY #30 tab 03/17/18 Allergies Allergy/AdvReac Type Severity Reaction Status Date / Time No Known Allergies Allergy Verified 02/07/19 14:46 Review of Systems ROS Statement: Those systems with pertinent positive or pertinent negative responses have been documented in the HPI. ROS Other: All systems not noted in ROS Statement are negative. Past Medical History Past Medical History: Atrial Fibrillation, Heart Failure, Hearing Disorder / Deafness, Thyroid Disorder Additional Past Medical History / Comment(s): Pt uses straight catheterization , LEAKY HEART VALVES History of Any Multi-Drug Resistant Organisms: None Reported Past Surgical History: Heart Catheterization, Hernia Repair, Orthopedic Surgery Additional Past Surgical History / Comment(s): left knee replacement, back surgery, prostste surgery Past Psychological History: No Psychological Hx Reported Smoking Status: Never smoker Past Alcohol Use History: None Reported Past Drug Use History: None Reported - Past Family History Father Family Medical History: Cancer Additional Family Medical History / Comment(s): pancreas/liver cancer Daughter(s) Family Medical History: Cancer Additional Family Medical History / Comment(s): 'some sort of GI cancer' General Exam Limitations: no limitations Course Vital Signs 02/07/19 02/07/19 02/07/19 14:25 14:50 15:00 Temperature 98.1 F Pulse Rate 60 64 63 Respiratory 22 22 22 Rate Blood Pressure 112/69 91/64 103/77 O2 Sat by Pulse 96 96 91 L Oximetry 02/07/19 02/07/19 02/07/19 15:41 16:09 16:10 Temperature Pulse Rate 52 L 54 L 64 Respiratory 18 Rate Blood Pressure 109/70 O2 Sat by Pulse 99 Oximetry Medical Decision Making - Lab Data Result diagrams: 02/07/19 15:00 02/07/19 15:00 Lab Results 02/07/19 02/07/19 02/07/19 Range/Units 15:00 15:00 15:00 WBC 4.0 (3.8-10.6) k/uL RBC 3.96 L (4.30-5.90) m/uL Hgb 12.7 L (13.0-17.5) gm/dL Hct 39.6 (39.0-53.0) % MCV 100.1 H (80.0-100.0) fL MCH 32.2 (25.0-35.0) pg MCHC 32.2 (31.0-37.0) g/dL RDW 14.4 (11.5-15.5) % Plt Count 132 L (150-450) k/uL Neutrophils % 77 % Lymphocytes % 10 % Monocytes % 7 % Eosinophils % 2 % Basophils % 0 % Neutrophils # 3.1 (1.3-7.7) k/uL Lymphocytes # 0.4 L (1.0-4.8) k/uL Monocytes # 0.3 (0-1.0) k/uL Eosinophils # 0.1 (0-0.7) k/uL Basophils # 0.0 (0-0.2) k/uL Macrocytosis Slight Sodium 135 L (137-145) mmol/L Potassium 4.4 (3.5-5.1) mmol/L Chloride 99 (98-107) mmol/L Carbon Dioxide 26 (22-30) mmol/L Anion Gap 10 mmol/L BUN 72 H (9-20) mg/dL Creatinine 1.07 (0.66-1.25) mg/dL Est GFR (CKD-EPI)AfAm 72 (>60 ml/min/1.73 sqM) Est GFR (CKD-EPI)NonAf 62 (>60 ml/min/1.73 sqM) Glucose 96 (74-99) mg/dL Calcium 8.4 (8.4-10.2) mg/dL NT-Pro-B Natriuret Pep 8150 pg/mL Disposition Clinical Impression: Dyspnea Disposition: ADMITTED IP TO THIS HOSP Condition: Fair Is patient prescribed a controlled substance at d/c from ED?: No Referrals: Angie Palomares MD [Primary Care Provider] - 1-2 days Decision Time: 16:52
[2019-02-07 15:09] LABS: Basophils % (A) 0 %; Eosinophils # (A) 0.1 k/uL (0-0.7); Eosinophils % (A) 2 %; HCT 39.6 % (39.0-53.0); HGB 12.7 gm/dL (13.0-17.5); Lymphocytes # (A) 0.4 k/uL (1.0-4.8); Lymphocytes % (A) 10 %; MCH 32.2 pg (25.0-35.0); MCHC 32.2 g/dL (31.0-37.0); MCV 100.1 fL (80.0-100.0); Macrocytosis Slight; Mean Platelet Volume 7.8; Monocytes # (A) 0.3 k/uL (0-1.0); Monocytes % (A) 7 %; Neutrophils # (A) 3.1 k/uL (1.3-7.7); Neutrophils % (A) 77 %; Platelet Count 132 k/uL (150-450); RBC 3.96 m/uL (4.30-5.90); RDW 14.4 % (11.5-15.5)
[2019-02-07 15:15] LABS: Calcium 8.4 mg/dL (8.4-10.2); Potassium 4.4 mmol/L (3.5-5.1)
--- NOTE | 2019-02-07 16:36 | XR ---
EXAMINATION TYPE: XR chest 2V DATE OF EXAM: 02/07/2019 COMPARISON: Chest x-ray August 07, 2018. HISTORY: Increasing shortness of breath for 2 days. TECHNIQUE: Frontal and lateral views of the chest are obtained. FINDINGS: There is chronic parenchymal change in the bases without suspicious new focal air space op acity, pleural effusion, or pneumothorax seen. Calcified granuloma or nodule right lung base is redem onstrated. The cardiac silhouette size remains enlarged with atherosclerotic and ectatic aorta. The osseous structures are demineralized. IMPRESSION: Cardiomegaly and chronic parenchymal changes without acute pulmonary process.
[2019-02-07] MEDS ORDERED: FUROSEMIDE 10 MG/ML 4 ML VIAL IV STA (16:47)
[2019-02-07] MEDS ORDERED: FUROSEMIDE 40 MG TAB PO SCH (17:00)
[2019-02-07] MEDS ORDERED: IPRATROPIUM-ALBUTEROL 3 ML NEB INHALATION PRN (20:11)
[2019-02-07] MEDS ORDERED: ACETAMINOPHEN TAB 500 MG TAB PO PRN (20:12)
[2019-02-07] MEDS ORDERED: ALPRAZolam 0.25 MG TAB PO PRN (20:12)
[2019-02-07 20:54] LABS: INR 1.1 (<1.2); Prothrombin Time 11.7 sec (9.0-12.0)
--- NOTE | 2019-02-07 21:26 | HP ---
HISTORY AND PHYSICAL DATE OF SERVICE: 02/07/2019 CHIEF COMPLAINT: Shortness of breath, cough and sputum. HISTORY OF PRESENT ILLNESS: This 88-year-old gentleman with a past medical history of atrial fibrillation, history of congestive heart failure with chronic diastolic dysfunction, ejection fraction 50-60 percent, history of valve abnormality, history of cryptogenic cirrhosis of the liver, being followed by Dr. Palomares in the outpatient setting was complaining of shortness of breath which is increasing over the past several days. Patient also had cough and sputum also. The patient also went to [facility] and drained about 8 L of ascitic fluid. The records are not available at this time. The chest x-ray showed some minimal CHF. Patient has taken 3 times Lasix and patient also following Cardiology, Dr. Gutiérrez in the outpatient setting. There is no history of fever, rigors or chills at this time. PAST MEDICAL HISTORY: Atrial fibrillation, history of hypothyroidism, history of cryptogenic cirrhosis of the liver, history of cardiac valve abnormality. MEDICATIONS: Home medications are: 1. Aldactone 25 mg p.o. b.i.d. 2. Synthroid 137 mcg p.o. daily. 3. Imdur 15 mg p.o. daily. 4. Lasix 60 mg p.o. b.i.d. 5. Coreg 3.125 mg p.o. b.i.d. 6. Lipitor 40 mg b.i.d. 7. Eliquis 2.5 mg p.o. b.i.d. ALLERGIES: None. FAMILY HISTORY: History of pancreas and liver cancer. SOCIAL HISTORY: No history of smoking. No history of alcohol. REVIEW OF SYSTEMS: ENT diminished vision. No diminished hearing. CARDIOVASCULAR system as mentioned earlier. RESPIRATORY: As mentioned earlier. GI: As mentioned earlier. no dysuria or hematuria. NERVOUS SYSTEM: No numbness or weakness. ALLERGY/IMMUNOLOGY: No asthma or hayfever. MUSCULOSKELETAL as mentioned earlier. HEMATOLOGY/ONCOLOGY: As mentioned earlier. ENDOCRINE: Hypothyroidism. CONSTITUTIONAL: As mentioned earlier. DERMATOLOGY negative. RHEUMATOLOGY negative. PSYCHIATRY as mentioned. PHYSICAL EXAMINATION: Alert and oriented times two. Pulse 71, blood pressure 99/65, respiration 18, temperature 97.8, pulse ox 94% on 2 L. HEENT: Conjunctivae normal. Oral mucosa moist. NECK: Jugular venous distention at the root of the neck. CARDIOVASCULAR SYSTEM: S1, S2 muffled. Ejection systolic murmur present. RESPIRATION: Breath sounds diminished in the bases. Bilateral scattered rhonchi and crackles. Expiratory wheezing also present. ABDOMEN is diffusely distended. No tenderness while tense. Fluid thrill and flanks are also dull. LEGS: Bilateral leg edema. NERVOUS SYSTEM: Higher functions as mentioned earlier. Moves all 4 limbs. No focal motor or sensory deficits. Lymphatics: No lymph nodes palpable in the neck, axillae or groin. SKIN: No ulcers, no rashes, no bleeding. JOINTS: No active deforming arthropathy. LABS: WBC 4, hemoglobin 12.7, MCV 100.1, sodium 135, BUN is 72. ASSESSMENT: 1. Shortness of breath with possible congestive heart failure, acute exacerbation with acute on chronic diastolic dysfunction ejection fraction 50 to 60%. 2. Acute cryptogenic cirrhosis of the liver with tense ascites, status post multiple thoracocentesis at [facility]. 3. Possible acute bronchitis with purulent tracheobronchitis. 4. Anemia macrocytic secondary to cirrhosis of liver. 5. Thrombocytopenia secondary to cirrhosis of the liver. 6. Hyponatremia. 7. Increased BUN. 8. History of atrial fibrillation. 9. On Eliquis. 10.Hard of hearing. 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 RECOMMENDATIONS AND DISCUSSION: Recommend to continue current medications, management and symptomatic treatment. Recommend to continue with the diuretics. I would also recommend Cardiology evaluation and also interventional radiology evaluation for possible ascitic therapeutic tap. I would also recommend a course of bronchodilators and empiric antibiotics also. Will follow the patient closely. Discussed the patient with Dr. Palomares. Prognosis guarded because of multiple complex medical issues. See orders for details. A copy of dictation is being forwarded to Dr. Palomares who is the primary physician. MMODL / IJN: [id number] /
[2019-02-07] MEDS: APIXABAN 2.5 MG TABLET PO SCH (21:35)
[2019-02-07] MEDS: SPIRONOLACTONE 25 MG TAB PO SCH (21:35)
[2019-02-07] MEDS: CARVEDILOL 3.125 MG TAB PO SCH (22:50)
[2019-02-07] MEDS: FUROSEMIDE 10 MG/ML 10 ML VIAL IV SCH (23:47)
[2019-02-08] MEDS ORDERED: FUROSEMIDE 20 MG TAB PO SCH
[2019-02-08] MEDS: LEVOTHYROXINE 137 MCG TAB PO SCH (05:50)
[2019-02-08] MEDS: FUROSEMIDE 10 MG/ML 10 ML VIAL IV SCH ×3 (08:29→23:29)
[2019-02-08] MEDS: CARVEDILOL 3.125 MG TAB PO SCH ×2 (08:30→17:18)
[2019-02-08] MEDS: ATORVASTATIN 40 MG TAB PO SCH (08:30)
[2019-02-08] MEDS: APIXABAN 2.5 MG TABLET PO SCH (08:30)
[2019-02-08] MEDS: SPIRONOLACTONE 25 MG TAB PO SCH ×2 (08:30→21:34)
[2019-02-08 09:29] LABS: Basophils % (A) 0 %; Eosinophils % (A) 0 %; HCT 37.6 % (39.0-53.0); HGB 11.8 gm/dL (13.0-17.5); Lymphocytes # (A) 0.3 k/uL (1.0-4.8); Lymphocytes % (A) 5 %; MCH 32.2 pg (25.0-35.0); MCHC 31.4 g/dL (31.0-37.0); MCV 102.5 fL (80.0-100.0); Macrocytosis Slight; Mean Platelet Volume 7.8; Monocytes # (A) 0.2 k/uL (0-1.0); Monocytes % (A) 5 %; Neutrophils # (A) 4.5 k/uL (1.3-7.7); Neutrophils % (A) 89 %; Platelet Count 143 k/uL (150-450); RBC 3.67 m/uL (4.30-5.90); RDW 14.3 % (11.5-15.5); WBC 5.1 k/uL (3.8-10.6)
[2019-02-08] MEDS: IPRATROPIUM-ALBUTEROL 3 ML NEB INHALATION SCH ×3 (09:33→19:03)
[2019-02-08 09:52] LABS: Potassium 3.6 mmol/L (3.5-5.1)
[2019-02-08 11:30] LABS: ALT 44 U/L (21-72); AST 61 U/L (17-59)
[2019-02-08 11:58] VITALS: BMI 27.9
[2019-02-08] MEDS: ISOSORBIDE MONONITRATE ER 15 MG TAB PO SCH (12:45)
--- NOTE | 2019-02-08 14:46 | US ---
EXAMINATION TYPE: US abdomen limited DATE OF EXAM: 02/08/2019 COMPARISON: NONE CLINICAL HISTORY: 88-year-old male reassess ascites. TECHNIQUE: Multiple sonographic images of the 4 abdominal quadrants for assessment of ascites fluid. FINDINGS: Large amount of abdominal ascites is demonstrated within all 4 quadrants. IMPRESSION: Large abdominal ascites fluid.
--- NOTE | 2019-02-08 15:06 | P.CRDCN ---
History of Present Illness History of present illness: This is a pleasant 88-year-old male past medical history significant for atrial fibrillation on long-term anticoagulation, chronic diastolic heart failure, liver disease and hypothyroidism. He states he recently underwent a paracentesis at [facility] in early December. He presented to the hospital with symptoms of shortness of breath and cough. He states for the previous one to 2 days he has noticed increasing shortness of breath at rest and with exertion. He is also coughing bringing up yellow green sputum. Denies fever or chills at home. He denies significant chest discomfort, there've been no palpitations, nausea, vomiting or diaphoresis. He states his abdomen does seem tight. He states he weighs himself daily and there has been no real fluctuation in his daily weight. He is seen and examined resting comfortably in no acute distress. EKG reveals atrial fibrillation with poor R-wave progression and nonspecific ST abnormalities. Chest x-ray reveals cardiomegaly and chronic proximal changes without an acute cardiopulmonary process. Laboratory data reviewed, WBC 5.1, hemoglobin 11.8, platelets 143, sodium 137, potassium 3.6, creatinine 1.24, AST 61, ALT 44 and proBNP 8150. Current cardiac medications include Eliquis 2.5 mg twice a day, atorvastatin 40 mg daily, carvedilol 3.125 mg twice a day, Lasix 60 mg twice a day, Imdur 15 mg daily and Aldactone 25 mg twice a day. He recently underwent cardiac catheterization in February 2018 revealing 40-50% proximal LAD stenosis and 50-60% distal LAD stenosis, RCA and circumflex artery are free of stenosis. Most recent echocardiogram obtained June 2018 reveals preserved LV systolic function with ejection fraction 60-65%, severe concentric LVH, moderately dilated left atrium, moderately enlarged right ventricle, mild mitral regurgitation, severe tricuspid regurgitation and normal RVSP with no evidence of pulmonary hypertension. At the time of my exam: CONSTITUTIONAL: Denies fever. Denies chills. EYES: Denies blurred vision. Denies vision changes. Denies eye pain. EARS, NOSE, MOUTH & THROAT: Denies headache. Denies sore throat. Denies ear pain. CARDIOVASCULAR: Denies chest pain. Complains of shortness of breath. Denies orthopnea. Denies PND. Denies palpitations. RESPIRATORY: Complains of cough. GASTROINTESTINAL: Complains of abdominal fullness. Denies abdominal pain. Denies diarrhea. Denies constipation. Denies nausea. Denies vomiting. MUSCULOSKELETAL: Denies myalgias. INTEGUMENTARY: Denies pruitis. Denies rash. NEUROLOGIC: Denies numbness. Denies tingling. Denies weakness. PSYCHIATRIC: Denies anxiety. Denies depression. ENDOCRINE: Denies fatigue. Denies weight change. Denies polydipsia. Denies polyurina. GENITOURINARY: Denies burning, hematuria or urgency with micturation. HEMATOLOGIC: Denies history of anemia. Denies bleeding. Blood pressure 111/70 heart rate 59 afebrile maintaining oxygen saturation on room air GENERAL: This is a 88-year-old male in no apparent distress at the time of my examination. HEENT: Head is atraumatic, normocephalic. Pupils are equal, round. Sclerae anicteric. Conjunctivae are clear. Mucous membranes of the mouth are moist. Neck is supple. There is jugular venous distention. No carotid bruit is heard. LUNGS: Scattered rhonchi and faint bibasilar rales. No wheezes. No chest wall tenderness is noted on palpation or with deep breathing. HEART: Irregular rate and rhythm with murmur at the left sternal border, no rubs or gallops. S1 and S2 heard. ABDOMEN: Mildly firm, nontender and distended. Bowel sounds are heard. No org anomegaly noted. EXTREMITIES: 2+ bilateral lower extremity pitting edema and no calf tenderness noted. VASCULAR: Radial and dorsalis pedis pulses palpated, no evidence of clubbing. NEUROLOGIC: Patient is awake, alert and oriented x3. 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 Repeat echocardiogram to assess cardiac structure and function. Continue IV diuresis. Recommend GI evaluation. Document accurate intake and output along with daily weights. Follow renal function and electrolytes in the morning. Thank you kindly for this consultation. Nurse Practitioner note has been reviewed, I agree with a documented findings and plan of care. Patient was seen and examined. Past Medical History Past Medical History: Atrial Fibrillation, Heart Failure, Hearing Disorder / Deafness, Thyroid Disorder Additional Past Medical History / Comment(s): Pt uses straight catheterization , LEAKY HEART VALVES History of Any Multi-Drug Resistant Organisms: None Reported Past Surgical History: Heart Catheterization, Hernia Repair, Orthopedic Surgery Additional Past Surgical History / Comment(s): left knee replacement, back surgery, prostste surgery Past Psychological History: No Psychological Hx Reported Smoking Status: Never smoker Past Alcohol Use History: None Reported Past Drug Use History: None Reported - Past Family History Father Family Medical History: Cancer Additional Family Medical History / Comment(s): pancreas/liver cancer Daughter(s) Family Medical History: Cancer Additional Family Medical History / Comment(s): 'some sort of GI cancer' Medications and Allergies Home Medications Medication Instructions Recorded Confirmed Type Apixaban [Eliquis] 2.5 mg PO BID #60 tablet 03/17/18 02/07/19 Rx Atorvastatin [Lipitor] 40 mg PO DAILY #30 tab 03/17/18 02/07/19 Rx Isosorbide Mononitrate ER [Imdur] 15 mg PO DAILY 05/18/18 02/07/19 History Carvedilol [Coreg] 3.125 mg PO BID 02/07/19 02/07/19 History Furosemide [Lasix] 60 mg PO BID@0900,1600 02/07/19 02/07/19 History Levothyroxine Sodium [Synthroid] 137 mcg PO DAILY 02/07/19 02/07/19 History Spironolactone [Aldactone] 25 mg PO BID 02/07/19 02/07/19 History Allergies Allergy/AdvReac Type Severity Reaction Status Date / Time No Known Allergies Allergy Verified 02/07/19 14:46 Physical Exam Vitals: Vital Signs Temp Pulse Pulse Resp BP BP Pulse Ox 02/08/19 09:42 56 L 02/08/19 09:33 56 L 02/08/19 05:00 97.8 F 59 L 22 111/70 94 L 02/08/19 03:52 80 22 02/08/19 00:00 80 02/07/19 20:00 97.7 F 61 22 94/57 99 02/07/19 18:32 97.6 F 64 16 100/68 95 02/07/19 17:56 97.8 F 71 18 99/65 94 L 02/07/19 17:00 62 20 94/65 93 L 02/07/19 16:10 64 20 109/70 99 02/07/19 16:09 54 L 02/07/19 15:41 52 L 02/07/19 15:00 63 22 103/77 91 L 02/07/19 14:50 64 22 91/64 96 02/07/19 14:25 98.1 F 60 22 112/69 96 Intake and Output 02/07/19 02/08/19 02/08/19 22:59 06:59 14:59 Intake Total 420 50 Balance 420 50 Intake: Intake, IV Titration 50 Amount cefTRIAXone 1 gm In 50 Sodium Chloride 0.9% 50 ml @ 100 mls/hr IVPB Q24H [facility] Rx#:[id number] Oral 420 Other: Voiding Method Self-Catheterization Self-Catheterization Self-Catheterization # Voids 2 Weight 88.4 kg 88.4 kg Results 02/08/19 08:54 02/08/19 08:54 Cardiac Enzymes 02/08/19 Range/Units 08:54 AST 61 H (17-59) U/L Coagulation 02/07/19 Range/Units 15:00 PT 11.7 (9.0-12.0) sec CBC 02/07/19 02/08/19 Range/Units 15:00 08:54 WBC 4.0 5.1 (3.8-10.6) k/uL RBC 3.96 L 3.67 L (4.30-5.90) m/uL Hgb 12.7 L 11.8 L (13.0-17.5) gm/dL Hct 39.6 37.6 L (39.0-53.0) % Plt Count 132 L 143 L (150-450) k/uL Comprehensive Metabolic Panel 02/07/19 02/08/19 02/08/19 Range/Units 15:00 08:54 08:54 Sodium 135 L 137 (137-145) mmol/L Potassium 4.4 3.6 (3.5-5.1) mmol/L Chloride 99 98 (98-107) mmol/L Carbon Dioxide 26 28 (22-30) mmol/L BUN 72 H 66 H (9-20) mg/dL Creatinine 1.07 1.24 (0.66-1.25) mg/dL Glucose 96 159 H (74-99) mg/dL Calcium 8.4 9.0 (8.4-10.2) mg/dL AST 61 H (17-59) U/L ALT 44 (21-72) U/L Current Medications Generic Name Dose Route Start Last Admin Trade Name Freq PRN Reason Stop Dose Admin Acetaminophen 500 mg 02/07/19 20:12 Tylenol Tab PO Q6HR PRN Fever and/ or Mild Pain Albuterol/Ipratropium 3 ml 02/08/19 08:00 02/08/19 09:33 Duoneb 0.5 Mg-3 Mg/3 Ml Soln INHALATION 3 ml RT-TID SHAINA Administration Albuterol/Ipratropium 3 ml 02/07/19 20:11 Duoneb 0.5 Mg-3 Mg/3 Ml Soln INHALATION RT-TID PRN Shortness Of Breath Or Wheezing Alprazolam 0.25 mg 02/07/19 20:12 Xanax PO TID PRN Anxiety Apixaban 2.5 mg 02/07/19 21:00 02/08/19 08:30 Eliquis PO 2.5 mg BID SHAINA Administration Atorvastatin Calcium 40 mg 02/08/19 09:00 02/08/19 08:30 Lipitor PO 40 mg DAILY SHAINA Administration Carvedilol 3.125 mg 02/07/19 18:00 02/08/19 08:30 Coreg PO 3.125 mg AC-BID SHAINA Administration Furosemide 60 mg 02/08/19 00:00 02/08/19 08:29 Lasix IV 60 mg Q8HR SHAINA Administration Ceftriaxone Sodium 1 gm/ 50 mls @ 100 mls/hr 02/07/19 21:00 02/07/19 21:36 Sodium Chloride IVPB 100 mls/hr Q24H SHAINA Administration Isosorbide Mononitrate 15 mg 02/08/19 09:00 Imdur PO DAILY SHAINA Levothyroxine Sodium 137 mcg 02/08/19 06:30 02/08/19 05:50 Synthroid PO 137 mcg DAILY@0630 SHAINA Administration Spironolactone 25 mg 02/07/19 21:00 02/08/19 08:30 Aldactone PO 25 mg BID SHAINA Administration Intake and Output 02/07/19 02/08/19 02/08/19 22:59 06:59 14:59 Intake Total 420 50 Balance 420 50 Intake: Intake, IV Titration 50 Amount cefTRIAXone 1 gm In 50 Sodium Chloride 0.9% 50 ml @ 100 mls/hr IVPB Q24H [facility] Rx#:[id number] Oral 420 Other: Voiding Method Self-Catheterization Self-Catheterization Self-Catheterization # Voids 2 Weight 88.4 kg 88.4 kg Patient Weight 02/09/19 06:59 Weight 88.4 kg 02/08/19 08:54 02/08/19 08:54
--- NOTE | 2019-02-08 18:35 | PN ---
PROGRESS NOTE DATE OF SERVICE: 02/08/2019 This 88-year-old gentleman, admitted with CHF, acute exacerbation, had significant ascites, also. The patient is also taking Eliquis at this time. Dr. Palomares is following the patient closely. The patient also had cryptogenic cirrhosis. The patient was evaluated by Cardiology as well as [facility]. There is no history of any fever, rigor or chills. No history of headache, loss of consciousness, seizures. The patient is still have shortness of breath and cough and sputum. Past medical history reviewed. REVIEW OF SYSTEMS: CARDIOVASCULAR SYSTEM: As mentioned earlier. RESPIRATORY SYSTEM: As mentioned earlier. GI: As mentioned earlier. : No dysuria or retention. NERVOUS SYSTEM: No numbness, weakness. CURRENT MEDICATIONS: Reviewed. They include: 1. Tylenol 500 mg q.6 p.r.n. 2. DuoNeb q.i.d. and p.r.n. 3. Xanax 0.25 t.i.d. 4. Lipitor 40 mg daily. 5. Coreg 3.125 mg b.i.d. 6. Rocephin 1 gram daily. 7. Lasix 60 mg IV at bedtime. 8. Imdur 15 mg daily. 9. Synthroid 137 mcg p.o. daily. 10.Aldactone 25 mg p.o. b.i.d. PHYSICAL EXAMINATION: Patient is alert, oriented x3. Pulse 58, blood pressure 107/71, respiration 17, temperature 97.9, pulse ox 94% on room air. HEENT: Conjunctivae normal. Oral mucosa moist. NECK: No jugular venous distention. No carotid bruit. No lymph node enlargement. CARDIOVASCULAR SYSTEM: S1, S2 muffled. RESPIRATORY SYSTEM: Breath sounds diminished at the bases. Bilateral scattered rhonchi and crackles. Expiratory wheezing also present. ABDOMEN: Soft but diffuse distention, ascites present. LEGS: Bilateral leg edema. NERVOUS SYSTEM: Diffusely weak. LABS: WBC 5.1, hemoglobin 11.8, sodium 137, potassium 3.6. ASSESSMENT: 1. Shortness of breath with possible congestive heart failure, acute exacerbation, with acute on chronic diastolic dysfunction, ejection fraction 50% to 60%. 2. Tense ascites secondary to cryptogenic cirrhosis, status post multiple abdominal paracenteses at [facility]. 3. Possible acute bronchitis with purulent tracheobronchitis. 4. Anemia, macrocytic, secondary to cirrhosis of the liver. 5. Thrombocytopenia secondary to cirrhosis of the liver. 6. Hyponatremia. 7. Increased BUN. 8. History of atrial fibrillation. 9. On Eliquis. 10.Hard of hearing. 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 RECOMMENDATIONS AND DISCUSSION: I recommend to continue current medications, continue with the monitoring, symptomatic treatment. Continue the diuretics. Monitor fluid/electrolyte balance closely. Hold Eliquis. Otherwise, intervention radiology consultation for possible abdominal paracentesis. Guarded prognosis because of multiple complex medical issues. Further recommendations to follow. See orders for further details. MMODL / IJN: [id number] /
--- NOTE | 2019-02-08 18:50 | ECHOF ---
Referral Reason:sob MEASUREMENTS -------- HEIGHT: 177.8 cm WEIGHT: 88.0 kg BP: 111/70 RVIDd: 5.1 cm (< 3.3) IVSd: 2.3 cm (0.6 - 1.1) LVIDd: 3.8 cm (3.9 - 5.3) LVPWd: 1.9 cm (0.6 - 1.1) IVSs: 2.8 cm LVIDs: 1.4 cm LVPWs: 3.1 cm LAESV Index (A-L): 48.78 ml/m Ao Diam: 3.5 cm (2.0 - 3.7) AV Cusp: 2.2 cm (1.5 - 2.6) LA Diam: 5.4 cm (2.7 - 3.8) AR PHT: 583 ms RAP: 10.00 mmHg RVSP: 33.81 mmHg FINDINGS -------- This was a technically adequate study. The left ventricular size is normal. There is severe concentric left ventricular hypertrophy. Ove rall left ventricular systolic function is normal with, an EF between 55 - 60 %. 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 Left ventricular fillimg pressure cannot be estimated due to Atrial fibrillation. The right ventricle is severely enlarged. LA is severely dilated >40 ml/m2 The right atrium is moderately enlarged. Interatrial and interventricular septum intact. There is mild to moderate aortic valve sclerosis. There is mild aortic regurgitation. There is no evidence of aortic stenosis. The mitral valve leaflets are mild to moderately thickened. Mild mitral annular calcification pres ent. Moderate mitral regurgitation is present. Severe tricuspid regurgitation present. There is mild pulmonary hypertension. The right ventricul ar systolic pressure, as measured by Doppler, is 33.81mmHg. Trace/mild (physiologic) pulmonic regurgitation. The aortic root size is normal. IVC Not well visulized. There is a small, generalized pericardial effusion present. CONCLUSIONS -------- 1. This was a technically adequate study. 2. The left ventricular size is normal. 3. There is severe concentric left ventricular hypertrophy. 4. Overall left ventricular systolic function is normal with, an EF between 55 - 60 %. 5. 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 6. Left ventricular fillimg pressure cannot be estimated due to Atrial fibrillation. 7. The right ventricle is severely enlarged. 8. LA is severely dilated >40 ml/m2 9. The right atrium is moderately enlarged. 10. Interatrial and interventricular septum intact. 11. There is mild to moderate aortic valve sclerosis. 12. There is mild aortic regurgitation. 13. There is no evidence of aortic stenosis. 14. The mitral valve leaflets are mild to moderately thickened. 15. Mild mitral annular calcification present. 16. Moderate mitral regurgitation is present. 17. Severe tricuspid regurgitation present. 18. There is mild pulmonary hypertension. 19. The right ventricular systolic pressure, as measured by Doppler, is 33.81mmHg. 20. Trace/mild (physiologic) pulmonic regurgitation. 21. The aortic root size is normal. 22. IVC Not well visulized. 23. There is a small, generalized pericardial effusion present. [employer] WORKER: Janette Baker RDCS
[2019-02-09] MEDS: LEVOTHYROXINE 137 MCG TAB PO SCH (05:37)
[2019-02-09] MEDS: IPRATROPIUM-ALBUTEROL 3 ML NEB INHALATION SCH ×3 (07:24→19:50)
[2019-02-09 08:59] LABS: Basophils % (A) 0 %; Eosinophils % (A) 0 %; HGB 12.5 gm/dL (13.0-17.5); Lymphocytes # (A) 0.5 k/uL (1.0-4.8); Lymphocytes % (A) 10 %; MCH 33.3 pg (25.0-35.0); MCHC 32.2 g/dL (31.0-37.0); MCV 103.3 fL (80.0-100.0); Macrocytosis Slight; Mean Platelet Volume 8.1; Monocytes # (A) 0.3 k/uL (0-1.0); Monocytes % (A) 5 %; Neutrophils # (A) 4.4 k/uL (1.3-7.7); Neutrophils % (A) 83 %; Platelet Count 125 k/uL (150-450); RBC 3.77 m/uL (4.30-5.90); RDW 15.3 % (11.5-15.5); WBC 5.2 k/uL (3.8-10.6)
[2019-02-09 09:11] LABS: Calcium 8.8 mg/dL (8.4-10.2); Potassium 3.7 mmol/L (3.5-5.1)
[2019-02-09] MEDS: ATORVASTATIN 40 MG TAB PO SCH (10:15)
[2019-02-09] MEDS: SPIRONOLACTONE 25 MG TAB PO SCH ×2 (10:15→21:39)
[2019-02-09] MEDS: ISOSORBIDE MONONITRATE ER 15 MG TAB PO SCH (10:15)
[2019-02-09] MEDS: FUROSEMIDE 10 MG/ML 10 ML VIAL IV SCH ×3 (10:15→23:15)
[2019-02-09] MEDS: CARVEDILOL 3.125 MG TAB PO SCH ×2 (10:15→16:15)
--- NOTE | 2019-02-09 12:12 | XR ---
EXAMINATION TYPE: XR chest 1V portable DATE OF EXAM: 02/09/2019 HISTORY: Shortness of breath. COMPARISON: 02/07/2019 TECHNIQUE: Single view of the chest is submitted. FINDINGS: Lucency underneath the right hemidiaphragm. Has there been recent surgical intervention. Otherwise fr ee air not excluded. Demonstrated are scattered senescent parenchymal change. There is no evidence for focal infiltrate. Nodular density right lower lobe. The heart is stable. Hilar and mediastinal structures are within normal limits. Degenerative changes are seen of the dorsal spine. IMPRESSION: 1. Lucency underneath the right hemidiaphragm. Has there been recent surgical intervention. Otherwis e free air not excluded.
--- NOTE | 2019-02-09 14:12 | P.PN ---
Subjective This is a pleasant 88-year-old male past medical history significant for atrial fibrillation on long-term anticoagulation, chronic diastolic heart failure, liver disease and hypothyroidism. He states he recently underwent a paracentesis at [facility] in early December. He presented to the hospital with symptoms of shortness of breath and cough. He states for the previous one to 2 days he has noticed increasing shortness of breath at rest and with exertion. He is also coughing bringing up yellow green sputum. Denies fever or chills at home. He denies significant chest discomfort, there've been no palpitations, nausea, vomiting or diaphoresis. He states his abdomen does seem tight. He states he weighs himself daily and there has been no real fluctuation in his daily weight. He is seen and examined resting comfortably in no acute distress. EKG reveals atrial fibrillation with poor R-wave progression and nonspecific ST abnormalities. Chest x-ray reveals cardiomegaly and chronic proximal changes without an acute cardiopulmonary process. 02/09/2019 Pt seen and examined sitting up in bed. He is complaining of ongoing shortness of breath with increased congestion on today's exam, despite diuresis. He also has some epigastric discomfort due to increasing abdominal girth. Abdominal ultrasound reveals large amount of ascites in all quadrants. Eliquis was held last night and he is scheduled for paracentesis with interventional radiology . Blood pressure marginal this morning at 101/68 heart rate 62 afeibrile and maintaining oxygen saturation on room air. Laboratory data reviewed, WBC 5.2, hgb 12.5, plt 125, sodium 137, potassium 3.7, creatinine 1.15. Echo reveals preserved LV systolic function with EF 55-60%, mild AR, mild with no gradient, severe TR, moderate MR and mild PH with RVSP 33 mmHg. Currently maintained on IV lasix 60 mg TID, aldactone 25 mg BID, imdur 15 mg daily, carvedilol 3.125 mg BID and atorvastatin 40 mg daily. GENERAL: This is a 88-year-old male in no apparent distress at the time of my examination. HEENT: Head is atraumatic, normocephalic. Pupils are equal, round. Sclerae anicteric. Conjunctivae are clear. Mucous membranes of the mouth are moist. Neck is supple. There is jugular venous distention. No carotid bruit is heard. LUNGS: Scattered rhonchi, intermittent wheezes and bibasilar rales. No wheezes. No chest wall tenderness is noted on palpation or with deep breathing. HEART: Irregular rate and rhythm with murmur at the left sternal border, no rubs or gallops. S1 and S2 heard. EXTREMITIES: 2+ bilateral lower extremity pitting edema and no calf tenderness noted. 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 Continue IV diuresis. Plan for paracentesis tomorrow morning, eliquis is on hold. Nurse Practitioner note has been reviewed, I agree with a documented findings and plan of care. Patient was seen and examined. Objective - Vital Signs Vital signs: Vital Signs Temp 97.8 F 02/09/19 05:00 Pulse 62 02/09/19 11:04 Resp 18 02/09/19 05:00 BP 101/68 02/09/19 05:00 Pulse Ox 95 02/09/19 05:00 Intake & Output 02/08/19 02/09/19 02/09/19 18:59 06:59 18:59 Weight 89 kg 87.5 kg Other: Voiding Method Self-Catheterization Self-Catheterization - Labs CBC & Chem 7: 02/09/19 08:15 02/09/19 08:15 Labs: Abnormal Lab Results - Last 24 Hours (Table) 02/09/19 02/09/19 Range/Units 08:15 08:15 RBC 3.77 L (4.30-5.90) m/uL Hgb 12.5 L (13.0-17.5) gm/dL MCV 103.3 H (80.0-100.0) fL Plt Count 125 L (150-450) k/uL Lymphocytes # 0.5 L (1.0-4.8) k/uL Chloride 96 L (98-107) mmol/L Carbon Dioxide 32 H (22-30) mmol/L BUN 64 H (9-20) mg/dL
--- NOTE | 2019-02-09 16:25 | PN ---
PROGRESS NOTE DATE OF SERVICE: 02/09/2019 This 88-year-old gentleman who was admitted with CHF, acute exacerbation, also had tense ascites. Interventional Radiology is planning ascitic tap tomorrow. Patient had cryptogenic cirrhosis apparently. No chest pain. No palpitations. No fever. Most recent chest x-ray, which was personally reviewed by me, showed some improvement in the vascular congestion. No chest pain. No palpitations. No fever. On exam, alert and oriented x3. Pulse 68, blood pressure 90/56, respiration 18, temperature 97.5, pulse ox 94% on room air. HEENT: Conjunctivae normal. NECK: No jugular venous distention. CARDIOVASCULAR SYSTEM: S1, S2 muffled. Ejection systolic murmur present. RESPIRATORY SYSTEM: Breath sounds diminished at the bases. Bilateral scattered rhonchi and crackles. ABDOMEN: Soft. Otherwise, tense ascites present. Bowel sounds present. LEGS: Bilateral leg edema. NERVOUS SYSTEM: Diffusely weak. LABS: WBC 5.2, hemoglobin 12.5, MCV 103. Sodium 137, potassium 3.7. ASSESSMENT: 1. Shortness of breath with possible congestive heart failure, acute exacerbation, with acute on chronic diastolic dysfunction, ejection fraction 50% to 60%. 2. 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 3. Possible acute purulent tracheobronchitis. 4. Anemia, macrocytic, secondary to cirrhosis of the liver. 5. Thrombocytopenia secondary to cirrhosis of the liver. 6. Hyponatremia. 7. Increased BUN. 8. History of atrial fibrillation. 9. On Eliquis. 10.Hard of hearing. 11.History of severe tricuspid regurgitation, myxomatous tricuspid valve. RECOMMENDATIONS AND DISCUSSION: I recommend to continue current medications, continue with the monitoring, symptomatic treatment. Hold Eliquis today. Possible abdominal paracentesis tomorrow. Cardiology input appreciated. Further recommendations to follow. MMODL / IJN: [id number] /
--- NOTE | 2019-02-09 22:25 | P.CONS ---
History of Present Illness - Reason for Consult Consult date: 02/09/19 Ascites, cirrhosis Requesting physician: Breonna Zapien - Chief Complaint Shortness of breath - History of Present Illness 88-year-old male with medical history significant for atrial fibrillation on anticoagulation therapy, chronic diastolic heart failure, hypothyroidism and cryptogenic cirrhosis who presents to the hospital with complaints of shortness of breath and cough. The patient had noticed increasing shortness of breath at rest and with exertion as well as a productive cough prior to presentation. Currently he is being seen by the cardiology service and treated for an acute exacerbation of chronic diastolic heart failure. In addition the patient has a known history of cryptogenic cirrhosis. In December he underwent paracentesis at [facility]. At that time approximately 8 L of ascitic fluid were removed. He reports that this was the only time he required paracentesis, aside from the first time he underwent paracentesis in 03/2018. He is on home diuretic therapy with Lasix 60 mg twice daily and Aldactone 25 mg twice daily. He denies any history of hepatic encephalopathy or GI bleeding. Laboratory evaluation on presentation was significant for WBC 5.2, hemoglobin 12.5, platelet count 125,000, AST 61 and ALT 44. Currently his lying comfortably in bed. He does report a tearing to a low-sodium diet at home. Review of Systems REVIEW OF SYSTEMS: CONSTITUTIONAL: Denies any fevers, chills, weight change or fatigue. CARDIOVASCULAR: Denies any chest pain, palpitations high or low blood pressures, but does report a known history of atrial fibrillation RESPIRATORY: He does report shortness of breath at rest and on exertion with associated productive cough but denies any hemoptysis. GENITOURINARY: No dysuria or hematuria. MUSCULOSKELETAL: No weakness reported. SKIN: Denies any new rashes or lesions, jaundice or pallor. PSYCHIATRIC: Denies any depression. NEUROLOGY: Denies headache, denies any new focal deficits. EARS/NOSE/THROAT: No recent hearing change, congestion, nasal discharge or sore throat. EYES: No pain in eyes, discharge or change in vision. GASTROINTESTINAL: As per HPI. Past Medical History Past Medical History: Atrial Fibrillation, Heart Failure, Hearing Disorder / Deafness, Thyroid Disorder Additional Past Medical History / Comment(s): Pt uses straight catheterization , LEAKY HEART VALVES History of Any Multi-Drug Resistant Organisms: None Reported Past Surgical History: Heart Catheterization, Hernia Repair, Orthopedic Surgery Additional Past Surgical History / Comment(s): left knee replacement, back surgery, prostste surgery Past Psychological History: No Psychological Hx Reported Smoking Status: Never smoker Past Alcohol Use History: None Reported Past Drug Use History: None Reported - Past Family History Father Family Medical History: Cancer Additional Family Medical History / Comment(s): pancreas/liver cancer Daughter(s) Family Medical History: Cancer Additional Family Medical History / Comment(s): 'some sort of GI cancer' Medications and Allergies Home Medications Medication Instructions Recorded Confirmed Type Apixaban [Eliquis] 2.5 mg PO BID #60 tablet 03/17/18 02/07/19 Rx Atorvastatin [Lipitor] 40 mg PO DAILY #30 tab 03/17/18 02/07/19 Rx Isosorbide Mononitrate ER [Imdur] 15 mg PO DAILY 05/18/18 02/07/19 History Carvedilol [Coreg] 3.125 mg PO BID 02/07/19 02/07/19 History Furosemide [Lasix] 60 mg PO BID@0900,1600 02/07/19 02/07/19 History Levothyroxine Sodium [Synthroid] 137 mcg PO DAILY 02/07/19 02/07/19 History Spironolactone [Aldactone] 25 mg PO BID 02/07/19 02/07/19 History Allergies Allergy/AdvReac Type Severity Reaction Status Date / Time No Known Allergies Allergy Verified 02/07/19 14:46 Physical Exam Vitals: Vital Signs Temp Pulse Pulse Resp BP Pulse Ox 02/09/19 11:55 97.5 F L 68 18 90/56 95 02/09/19 11:04 62 02/09/19 10:52 62 02/09/19 05:00 97.8 F 62 18 101/68 95 02/08/19 20:00 97.8 F 69 20 96/53 95 02/08/19 13:35 60 02/08/19 13:23 60 02/08/19 12:46 97.9 F 58 L 17 107/71 94 L Intake and Output 02/08/19 02/09/19 02/09/19 22:59 06:59 14:59 Other: Voiding Method Self-Catheterization Self-Catheterization Weight 89 kg 87.5 kg On physical examination, patient appears comfortable in no apparent distress. HEAD: Normocephalic, atraumatic. EYES: No scleral icterus. No conjunctival injection. MOUTH: No lesions, tongue midline. NECK: Trachea midline, no gross abnormalities. CHEST: Decreased air entry bilaterally with coarse respiratory noises in lower lobes bilaterally. HEART: S1-S2 appreciated, irregularly irregular. ABDOMEN: Soft, distended with positive fluid wave. Bowel sounds are positive. No organomegaly. No guarding or rigidity. EXTREMITIES: Bilateral pedal edema. SKIN: No rashes, no jaundice. NEUROLOGIC: Alert and oriented x3, no asterixis noted. No focal deficits. Results CBC & Chem 7: 02/09/19 08:15 02/09/19 08:15 Labs: Abnormal Lab Results - Last 24 Hours (Table) 02/09/19 02/09/19 Range/Units 08:15 08:15 RBC 3.77 L (4.30-5.90) m/uL Hgb 12.5 L (13.0-17.5) gm/dL MCV 103.3 H (80.0-100.0) fL Plt Count 125 L (150-450) k/uL Lymphocytes # 0.5 L (1.0-4.8) k/uL Chloride 96 L (98-107) mmol/L Carbon Dioxide 32 H (22-30) mmol/L BUN 64 H (9-20) mg/dL US - abdomen: report reviewed (Ultrasound abdomen significant for large amount of ascites.) Assessment and Plan (1) Decompensation of cirrhosis of liver Narrative/Plan: 80-year-old with multiple medical comorbidities including atrial fibrillation on Eliquis therapy, chronic diastolic heart failure and cryptogenic cirrhosis who presented to the hospital with complaints of shortness of breath and productive cough and is currently being treated for an acute exacerbation of chronic diastolic heart failure. The patient has a known history of cryptogenic deco mpensated cirrhosis requiring paracentesis twice in the past, with his last paracentesis in December with approximately 8 L removed. The patient is on home diuretic therapy with Lasix 60 mg twice daily and Aldactone 25 mg twice daily and does report a tearing to a low-sodium diet. He does report abdominal distention and lower extremity swelling. Denies any prior history of variceal bleed or hepatic encephalopathy. Current Visit: Yes Status: Acute Code(s): K72.90 - HEPATIC FAILURE, UNSPECIFIED WITHOUT COMA SNOMED Code(s): 821099301 (2) Abdominal distension Current Visit: No Status: Acute Code(s): R14.0 - ABDOMINAL DISTENSION (GASEOUS) SNOMED Code(s): 47414209 (3) Elevated liver enzymes Current Visit: No Status: Acute Code(s): R74.8 - ABNORMAL LEVELS OF OTHER SERUM ENZYMES SNOMED Code(s): 403146919 Plan: Supportive care Low-sodium diet Continue diuretic therapy with Lasix and Aldactone Continue to hold anticoagulation therapy Tentative plan for paracentesis Cardiology service following, appreciate the recommendations, currently treating the patient for acute exacerbation of chronic diastolic heart failure Continue to monitor her symptomatically Thank you for allowing us to participate in the care of the patient we will continue to follow
[2019-02-10] MEDS: LEVOTHYROXINE 137 MCG TAB PO SCH (06:22)
[2019-02-10 07:54] LABS: Basophils % (A) 1 %; Eosinophils # (A) 0.2 k/uL (0-0.7); Eosinophils % (A) 3 %; HCT 38.8 % (39.0-53.0); HGB 12.2 gm/dL (13.0-17.5); Lymphocytes # (A) 0.4 k/uL (1.0-4.8); Lymphocytes % (A) 8 %; MCH 32.3 pg (25.0-35.0); MCHC 31.6 g/dL (31.0-37.0); MCV 102.4 fL (80.0-100.0); Macrocytosis Slight; Mean Platelet Volume 7.9; Monocytes # (A) 0.3 k/uL (0-1.0); Monocytes % (A) 6 %; Neutrophils # (A) 3.8 k/uL (1.3-7.7); Neutrophils % (A) 81 %; Platelet Count 129 k/uL (150-450); RBC 3.78 m/uL (4.30-5.90); RDW 15.2 % (11.5-15.5); WBC 4.8 k/uL (3.8-10.6)
[2019-02-10] MEDS: IPRATROPIUM-ALBUTEROL 3 ML NEB INHALATION SCH ×3 (07:57→20:48)
[2019-02-10] MEDS: FUROSEMIDE 10 MG/ML 10 ML VIAL IV SCH (08:06)
[2019-02-10 08:15] LABS: Calcium 8.6 mg/dL (8.4-10.2); Potassium 3.3 mmol/L (3.5-5.1)
[2019-02-10] MEDS: CARVEDILOL 3.125 MG TAB PO SCH ×2 (11:57→17:49)
[2019-02-10] MEDS ORDERED: Potassium Replacement Protocol 1 EACH MISC MISCELLANE PRN (12:57)
[2019-02-10] MEDS ORDERED: CALCIUM CARBONATE 500 MG CHEWABLE PO PRN (13:45)
[2019-02-10] MEDS: POTASSIUM CHLORIDE ER 20 MEQ TAB.ER PO SCH ×4 (13:47→20:53)
[2019-02-10] MEDS: ATORVASTATIN 40 MG TAB PO SCH (13:48)
[2019-02-10] MEDS: ISOSORBIDE MONONITRATE ER 15 MG TAB PO SCH (13:48)
[2019-02-10] MEDS: SPIRONOLACTONE 25 MG TAB PO SCH ×2 (13:48→20:53)
--- NOTE | 2019-02-10 15:20 | P.PN ---
Subjective This is a pleasant 88-year-old male past medical history significant for atrial fibrillation on long-term anticoagulation, chronic diastolic heart failure, cryptogenic cirrhosis and hypothyroidism. He states he recently underwent a paracentesis at [facility] in early December. He presented to the hospital with symptoms of shortness of breath and cough. He states for the previous one to 2 days he has noticed increasing shortness of breath at rest and with exertion. He is also coughing bringing up yellow green sputum. Denies fever or chills at home. He denies significant chest discomfort, there've been no palpitations, nausea, vomiting or diaphoresis. He states his abdomen does seem tight. He states he weighs himself daily and there has been no real fluctuation in his daily weight. He is seen and examined resting comfortably in no acute distress. EKG reveals atrial fibrillation with poor R-wave progression and nonspecific ST abnormalities. Chest x-ray reveals cardiomegaly and chronic proximal changes without an acute cardiopulmonary process. 02/09/2019 Pt seen and examined sitting up in bed. He is complaining of ongoing shortness of breath with increased congestion on today's exam, despite diuresis. He also has some epigastric discomfort due to increasing abdominal girth. Abdominal ultrasound reveals large amount of ascites in all quadrants. Eliquis was held last night and he is scheduled for paracentesis with interventional radiology . Blood pressure marginal this morning at 101/68 heart rate 62 afeibrile and maintaining oxygen saturation on room air. Laboratory data reviewed, WBC 5.2, hgb 12.5, plt 125, sodium 137, potassium 3.7, creatinine 1.15. Echo reveals preserved LV systolic function with EF 55-60%, appearance suggestive of infiltrative cardiomyopathy mild AR, mild with no gradient, severe TR, moderate MR and mild PH with RVSP 33 mmHg. Currently maintained on IV lasix 60 mg TID, aldactone 25 mg BID, imdur 15 mg daily, carvedilol 3.125 mg BID and atorvastatin 40 mg daily. 02/10/2019 Pt is seen and examined sitting up in bed. His breathing is much better since undergoing paracentesis, 9.1 liters removed. He states his breathing is much improved, however he continues to feel abdominal discomfort, mostly in the epigastric region. Laboratory data reviewed, WBC 4.8, hgb 12.2, plt 129, sodium 136, potassium 3.3, creatinine 1.08. Blood pressure 107/68 heart rate 75. Weight is down this morning 4 kg. GENERAL: This is a 88-year-old male in no apparent distress at the time of my examination. HEENT: Head is atraumatic, normocephalic. Pupils are equal, round. Sclerae anicteric. Conjunctivae are clear. Mucous membranes of the mouth are moist. Neck is supple. There is jugular venous distention. No carotid bruit is heard. LUNGS: Scattered rhonchi throughout. No wheezes or rales. No chest wall tenderness is noted on palpation or with deep breathing. HEART: Irregular rate and rhythm with murmur at the left sternal border, no rubs or gallops. S1 and S2 heard. EXTREMITIES: trace bilateral lower extremity edema, improved from previous exam and no calf tenderness noted. 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 Will resume residential anti- coagulation tomorrow if he remains stable. Echocardiogram findings will warrant further evaluation to for possibly amyloidosis. This can be done as an outpatient. We will continue to follow and make recommendations accordingly. Nurse Practitioner note has been reviewed, I agree with a documented findings and plan of care. Patient was seen and examined. Objective - Vital Signs Vital signs: Vital Signs Temp 98.2 F 02/10/19 13:25 Pulse 77 02/10/19 14:44 Resp 18 02/10/19 13:25 BP 107/68 02/10/19 13:25 Pulse Ox 94 L 02/10/19 13:05 Intake & Output 02/09/19 02/10/19 02/10/19 18:59 06:59 18:59 Intake Total 50 Balance 50 Weight 84.5 kg Intake: Intake, IV Titration 50 Amount cefTRIAXone 1 gm In 50 Sodium Chloride 0.9% 50 ml @ 100 mls/hr IVPB Q24H [facility] Rx#:[id number] Other: Voiding Method Self-Catheterization Self-Catheterization Self-Catheterization # Voids 2 - Labs CBC & Chem 7: 02/10/19 07:14 02/10/19 07:14 Labs: Abnormal Lab Results - Last 24 Hours (Table) 02/10/19 02/10/19 Range/Units 07:14 07:14 RBC 3.78 L (4.30-5.90) m/uL Hgb 12.2 L (13.0-17.5) gm/dL Hct 38.8 L (39.0-53.0) % MCV 102.4 H (80.0-100.0) fL Plt Count 129 L (150-450) k/uL Lymphocytes # 0.4 L (1.0-4.8) k/uL Sodium 136 L (137-145) mmol/L Potassium 3.3 L (3.5-5.1) mmol/L Chloride 97 L (98-107) mmol/L Carbon Dioxide 33 H (22-30) mmol/L BUN 56 H (9-20) mg/dL Glucose 103 H (74-99) mg/dL
--- NOTE | 2019-02-10 16:37 | US ---
EXAMINATION TYPE: US paracentesis abd w/image DATE OF EXAM: 02/10/2019 COMPARISON: NONE HISTORY: Ascites. PROCEDURE: Maximal barrier technique was utilized. The skin overlying a suitable pocket of fluid was localized with ultrasound and the overlying skin was prepped and draped. Ultrasound was utilized with sterile technique. Lidocaine was used for local anesthesia and a skin nathan made with a scalpel. Catheter was advanced under direct ultrasound guidance into a suitable pocket of fluid and approximately 9.1 liter s of serous sanguinous fluid were removed. Catheter was withdrawn and hemostasis achieved. There is no immediate complication; the patient is discharged in stable condition. IMPRESSION: STATUS POST ULTRASOUND GUIDED PARACENTESIS FOR PALLIATION OF ASCITES. THIS PROCEDURE WA S PERFORMED BY THE UNDERSIGNED. Specimen sent for laboratory analysis.
--- NOTE | 2019-02-10 17:22 | PN ---
PROGRESS NOTE DATE OF SERVICE: 02/10/2019. This 88-year-old gentleman admitted with shortness of breath and CHF acute exacerbation. Patient also had tense ascites. About 9 L of hemorrhagic fluid was aspirated today and sent for cytology. Patient is feeling much better today. Complaints of epigastric pain. No chest pain. No palpitations. No fever. PHYSICAL EXAM: Alert and oriented times three. Pulse 72, blood pressure 100/55, respiration 18, temperature 98.2, pulse ox 94% on room air. HEENT: Conjunctivae normal. NECK: No JVD. CARDIOVASCULAR: S1, S2 normal. RESPIRATORY: Breath sounds diminished in the bases. No rhonchi. No crackles. ABDOMEN: Soft. Mild discomfort in the epigastrium. Otherwise, no guarding, no rigidity. Ascites present, but abdomen is much more flaccid and soft at this time after ascitic tap. LEGS: Minimal edema. NERVOUS SYSTEM: Diffusely weak. LAB STUDIES: WBC 4.8, hemoglobin 12.2, sodium 130, potassium 3.3. ASSESSMENT: 1. Shortness of breath with possible congestive heart failure acute exacerbation with acute on chronic diastolic dysfunction, ejection fraction 50 to 60%. 2. 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 3. Previous abdominal paracentesis at [facility]. 4. Possible acute purulent tracheobronchitis, present on admission. 5. Anemia, microcytic, secondary to cirrhosis of the liver. 6. Thrombocytopenia secondary to cirrhosis of the liver. 7. Hyponatremia. 8. Increased BUN. 9. History of atrial fibrillation on Eliquis. 10.Hard of hearing. 11.History of severe tricuspid regurgitation and myxomatous tricuspid valve. 12.Hypokalemia. RECOMMENDATIONS AND DISCUSSION: Recommend to continue current medications, continue with monitoring, symptomatic treatment. Supplement potassium. Otherwise, await cytology report from the ascitic fluid aspiration. Other than that, I would continue the rest of the medication including diuretics. Monitor electrolytes closely. Guarded prognosis because of multiple complex medical issues. Further recommendations to follow. MMODL / IJN: [id number] /
[2019-02-10] MEDS: PANTOPRAZOLE 40 MG/10 ML VIAL IVP SCH ×2 (17:49→20:53)
--- NOTE | 2019-02-10 22:09 | P.PN ---
Subjective Progress Note Date: 02/10/19 Principal diagnosis: Decompensated cryptogenic cirrhosis, ascites Patient is seen sitting bedside. Reports breathing is much improved after paracentesis. Some improvement in lower extremity swelling. Objective - Vital Signs Vital signs: Vital Signs Temp 97.9 F 02/10/19 21:52 Pulse 66 02/10/19 21:52 Resp 18 02/10/19 21:52 BP 104/64 02/10/19 21:52 Pulse Ox 92 L 02/10/19 21:52 Intake & Output 02/10/19 02/10/19 02/11/19 06:59 18:59 06:59 Intake Total 50 Balance 50 Weight 84.5 kg Intake: Intake, IV Titration 50 Amount cefTRIAXone 1 gm In 50 Sodium Chloride 0.9% 50 ml @ 100 mls/hr IVPB Q24H [facility] Rx#:[id number] Other: Voiding Method Self-Catheterization Self-Catheterization # Voids 2 - Exam On physical examination, patient appears comfortable in no apparent distress. HEAD: Normocephalic, atraumatic. EYES: No scleral icterus. No conjunctival injection. MOUTH: No lesions, tongue midline. NECK: Trachea midline, no gross abnormalities. CHEST: Decreased air entry with coarse respiratory notices in the lower lung guy bilaterally, improved from yesterday. HEART: S1-S2 appreciated. ABDOMEN: Soft, distended with positive fluid wave. Bowel sounds are positive. No organomegaly. No guarding or rigidity. EXTREMITIES: Bilateral pedal edema. SKIN: No rashes, no jaundice. NEUROLOGIC: Alert and oriented x3. No focal deficits. - Labs CBC & Chem 7: 02/10/19 07:14 02/10/19 07:14 Labs: Abnormal Lab Results - Last 24 Hours (Table) 02/10/19 02/10/19 Range/Units 07:14 07:14 RBC 3.78 L (4.30-5.90) m/uL Hgb 12.2 L (13.0-17.5) gm/dL Hct 38.8 L (39.0-53.0) % MCV 102.4 H (80.0-100.0) fL Plt Count 129 L (150-450) k/uL Lymphocytes # 0.4 L (1.0-4.8) k/uL Sodium 136 L (137-145) mmol/L Potassium 3.3 L (3.5-5.1) mmol/L Chloride 97 L (98-107) mmol/L Carbon Dioxide 33 H (22-30) mmol/L BUN 56 H (9-20) mg/dL Glucose 103 H (74-99) mg/dL Assessment and Plan (1) Decompensation of cirrhosis of liver Narrative/Plan: 80-year-old with multiple medical comorbidities including atrial fibrillation on Eliquis therapy, chronic diastolic heart failure and cryptogenic cirrhosis who presented to the hospital with complaints of shortness of breath and productive cough and is currently being treated for an acute exacerbation of chronic diastolic heart failure. The patient has a known history of cryptogenic decompensated cirrhosis requiring paracentesis twice in the past, with his last paracentesis in December with approximately 8 L removed. The patient is on home diuretic therapy with Lasix 60 mg twice daily and Aldactone 25 mg twice daily and does report a tearing to a low-sodium diet. He does report abdominal distention and lower extremity swelling. Denies any prior history of variceal bleed or hepatic encephalopathy. Current Visit: Yes Status: Acute Code(s): K72.90 - HEPATIC FAILURE, UNSPECIFIED WITHOUT COMA SNOMED Code(s): 583016022 (2) Abdominal distension Current Visit: No Status: Acute Code(s): R14.0 - ABDOMINAL DISTENSION (GASEOUS) SNOMED Code(s): 65412192 (3) Elevated liver enzymes Current Visit: No Status: Acute Code(s): R74.8 - ABNORMAL LEVELS OF OTHER SERUM ENZYMES SNOMED Code(s): 548657284 Plan: Supportive care Low-sodium diet Continue diuretic therapy with Lasix milligrams IV twice daily and Aldactone, with dose increased to 50 mg twice daily from 25 mg twice daily Continue to hold anticoagulation therapy Patient is status post paracentesis with 9 L removed Cardiology service following, appreciate the recommendations, currently treating the patient for acute exacerbation of chronic diastolic heart failure Continue to monitor her symptomatically Thank you for allowing us to participate in the care of the patient we will continue to follow
[2019-02-11] MEDS: FUROSEMIDE 20 MG TAB PO SCH ×2 (06:13→16:29)
[2019-02-11] MEDS: LEVOTHYROXINE 137 MCG TAB PO SCH (06:13)
[2019-02-11] MEDS: IPRATROPIUM-ALBUTEROL 3 ML NEB INHALATION SCH ×3 (08:19→20:22)
[2019-02-11] MEDS: PANTOPRAZOLE 40 MG/10 ML VIAL IVP SCH (08:43)
[2019-02-11] MEDS: ATORVASTATIN 40 MG TAB PO SCH (08:44)
[2019-02-11] MEDS: CARVEDILOL 3.125 MG TAB PO SCH ×2 (08:44→16:29)
[2019-02-11] MEDS: POTASSIUM CHLORIDE ER 20 MEQ TAB.ER PO SCH ×2 (08:44→23:09)
[2019-02-11] MEDS: SPIRONOLACTONE 25 MG TAB PO SCH ×2 (08:44→23:09)
[2019-02-11] MEDS: ISOSORBIDE MONONITRATE ER 15 MG TAB PO SCH (08:44)
[2019-02-11 09:25] LABS: Basophils % (A) 1 %; Eosinophils # (A) 0.1 k/uL (0-0.7); Eosinophils % (A) 3 %; HCT 43.4 % (39.0-53.0); HGB 13.6 gm/dL (13.0-17.5); Lymphocytes # (A) 0.4 k/uL (1.0-4.8); Lymphocytes % (A) 10 %; MCH 32.4 pg (25.0-35.0); MCHC 31.4 g/dL (31.0-37.0); MCV 103.2 fL (80.0-100.0); Macrocytosis Slight; Monocytes # (A) 0.3 k/uL (0-1.0); Monocytes % (A) 7 %; Neutrophils # (A) 3.1 k/uL (1.3-7.7); Neutrophils % (A) 78 %; Platelet Count 122 k/uL (150-450); RBC 4.21 m/uL (4.30-5.90); RDW 14.7 % (11.5-15.5)
[2019-02-11 09:27] LABS: Calcium 8.5 mg/dL (8.4-10.2); Potassium 4.9 mmol/L (3.5-5.1)
[2019-02-11 09:30] LABS: INR 1.2 (<1.2); Prothrombin Time 12.3 sec (9.0-12.0)
--- NOTE | 2019-02-11 14:27 | P.PN ---
Subjective This is a pleasant 88-year-old male past medical history significant for atrial fibrillation on long-term anticoagulation, chronic diastolic heart failure, cryptogenic cirrhosis and hypothyroidism. He states he recently underwent a paracentesis at [facility] in early December. He presented to the hospital with symptoms of shortness of breath and cough. He states for the previous one to 2 days he has noticed increasing shortness of breath at rest and with exertion. He is also coughing bringing up yellow green sputum. Denies fever or chills at home. He denies significant chest discomfort, there've been no palpitations, nausea, vomiting or diaphoresis. He states his abdomen does seem tight. He states he weighs himself daily and there has been no real fluctuation in his daily weight. He is seen and examined resting comfortably in no acute distress. EKG reveals atrial fibrillation with poor R-wave progression and nonspecific ST abnormalities. Chest x-ray reveals cardiomegaly and chronic proximal changes without an acute cardiopulmonary process. 02/09/2019 Pt seen and examined sitting up in bed. He is complaining of ongoing shortness of breath with increased congestion on today's exam, despite diuresis. He also has some epigastric discomfort due to increasing abdominal girth. Abdominal ultrasound reveals large amount of ascites in all quadrants. Eliquis was held last night and he is scheduled for paracentesis with interventional radiology . Blood pressure marginal this morning at 101/68 heart rate 62 afeibrile and maintaining oxygen saturation on room air. Laboratory data reviewed, WBC 5.2, hgb 12.5, plt 125, sodium 137, potassium 3.7, creatinine 1.15. Echo reveals preserved LV systolic function with EF 55-60%, appearance suggestive of infiltrative cardiomyopathy mild AR, mild with no gradient, severe TR, moderate MR and mild PH with RVSP 33 mmHg. Currently maintained on IV lasix 60 mg TID, aldactone 25 mg BID, imdur 15 mg daily, carvedilol 3.125 mg BID and atorvastatin 40 mg daily. 02/10/2019 Pt is seen and examined sitting up in bed. His breathing is much better since undergoing paracentesis, 9.1 liters removed. He states his breathing is much improved, however he continues to feel abdominal discomfort, mostly in the epigastric region. Laboratory data reviewed, WBC 4.8, hgb 12.2, plt 129, sodium 136, potassium 3.3, creatinine 1.08. Blood pressure 107/68 heart rate 75. Weight is down this morning 4 kg. 02/11/2019 Pt is seen and examined resting comfortably in bed. He is having significant amount of drainage from paracentesis site. Frequent dressing changes per the nurse saturated with serous blood tinged drainage. He denies pain at the site, just general discomfort overall from being constantly saturated. He denies chest pain, worsening shortness of breath, dizziness or palpitations. Blood pressure 105/66 heart rate 88 afebrile maintaining oxygen saturation on room air. Laboratory data reviewed, WBC 4.0, hemoglobin 13.6, platelets 122, sodium 136, potassium 4.9, creatinine 1.01. Eliquis continues to remain on hold. He has been transitioned to oral diuretics as of this morning. GENERAL: This is a 88-year-old male in no apparent distress at the t praas of my examination. HEENT: Head is atraumatic, normocephalic. Pupils are equal, round. Sclerae an icteric. Conjunctivae are clear. Mucous membranes of the mouth are moist. Neck is supple. There is jugular venous distention. No carotid bruit is heard. LUNGS: Scattered rhonchi throughout. No wheezes or rales. No chest wall tenderness is noted on palpation or with deep breathing. HEART: Irregular rate and rhythm with murmur at the left sternal border, no rubs or gallops. S1 and S2 heard. EXTREMITIES: trace bilateral lower extremity edema, improved from previous exam and no calf tenderness noted. 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 Hampton for evaluation of paracentesis puncture site. Continue to hold Eliquis until bleeding has subsided. Nurse Practitioner note has been reviewed, I agree with a documented findings and plan of care. Patient was seen and examined. Objective - Vital Signs Vital signs: Vital Signs Temp 97.9 F 02/11/19 05:11 Pulse 80 02/11/19 12:52 Resp 16 02/11/19 12:07 BP 105/66 02/11/19 12:07 Pulse Ox 97 02/11/19 12:07 Intake & Output 02/10/19 02/11/19 02/11/19 18:59 06:59 18:59 Intake Total 50 Balance 50 Weight 74.5 kg Intake: Intake, IV Titration 50 Amount cefTRIAXone 1 gm In 50 Sodium Chloride 0.9% 50 ml @ 100 mls/hr IVPB Q24H [facility] Rx#:[id number] Other: Voiding Method Self-Catheterization Self-Catheterization Self-Catheterization # Voids 2 3 - Labs CBC & Chem 7: 02/11/19 08:03 02/11/19 08:03 Labs: Abnormal Lab Results - Last 24 Hours (Table) 02/11/19 02/11/19 02/11/19 Range/Units 08:03 08:03 08:03 RBC 4.21 L (4.30-5.90) m/uL MCV 103.2 H (80.0-100.0) fL Plt Count 122 L (150-450) k/uL Lymphocytes # 0.4 L (1.0-4.8) k/uL PT 12.3 H (9.0-12.0) sec INR 1.2 H (<1.2) Sodium 136 L (137-145) mmol/L Carbon Dioxide 34 H (22-30) mmol/L BUN 41 H (9-20) mg/dL
--- NOTE | 2019-02-11 16:25 | P.PN ---
Subjective Progress Note Date: 02/11/19 Principal diagnosis: This is an 88-year-old male who was admitted with shortness of breath, CHF acute exacerbation, and tense ascites. Yesterday patient underwent a paracentesis re moving over 9 L of hemorrhagic fluid that was dark in color and sent for cytology. Upon visiting the patient today the patient is sitting up in bed at the site of the bed in no acute distress and is having some serosanguineous drainage from the paracentesis site that was done yesterday. Per nursing staff and the patient, there has been multiple dressing changes of ADD pads that of been saturated as well as towels that had been saturated overnight. Patient states that he still feels much better and is able to breathe better. Patient denies any chest pain, shortness of breath, or palpitations at this time. Patient denies any weakness, dizziness, lightheadedness. Patient denies any nausea or vomiting at this time. Patient is looking forward to going home today. Patient is being followed by cardiology and due to this serosanguineous drainage anticoagulation will still be held at this time. We will continue to monitor monitor closely. Objective - Vital Signs Vital signs: Vital Signs Temp 97.9 F 02/11/19 05:11 Pulse 80 02/11/19 12:52 Resp 16 02/11/19 12:07 BP 105/66 02/11/19 12:07 Pulse Ox 97 02/11/19 12:07 Intake & Output 02/10/19 02/11/19 02/11/19 18:59 06:59 18:59 Intake Total 50 Balance 50 Weight 74.5 kg Intake: Intake, IV Titration 50 Amount cefTRIAXone 1 gm In 50 Sodium Chloride 0.9% 50 ml @ 100 mls/hr IVPB Q24H [facility] Rx#:[id number] Other: Voiding Method Self-Catheterization Self-Catheterization Self-Catheterization # Voids 2 3 - Exam Gen: This is a 88-year-old male who is sitting up at the site of the bed in no acute distress. Vital signs are temp is 97.9F, pulse is 71, respirations are 18, blood pressure is 92/63, oxygen saturation is 92% on room air HEENT: Head is atraumatic, normocephalic. Pupils equal, round. Sclerae is anicteric. NECK: Supple. No JVD. No lymphadenopathy. No thyromegaly. LUNGS: Diminished in the bases. No wheezes or rhonchi. No intercostal retractions. HEART: Regular rate and rhythm. No murmur. ABDOMEN: Soft. Mildly distended. Bowel sounds are present. No masses. No tenderness. ABD pads noted at the paracentesis site of the lower left abdomen and are saturated with serosanguineous fluid EXTREMITIES: No pedal edema. No calf tenderness. NEUROLOGICAL: Patient is awake, alert and oriented x3. Cranial nerves 2 through 12 are grossly intact. - Labs CBC & Chem 7: 02/11/19 08:03 02/11/19 08:03 Labs: Abnormal Lab Results - Last 24 Hours (Table) 02/11/19 02/11/19 02/11/19 Range/Units 08:03 08:03 08:03 RBC 4.21 L (4.30-5.90) m/uL MCV 103.2 H (80.0-100.0) fL Plt Count 122 L (150-450) k/uL Lymphocytes # 0.4 L (1.0-4.8) k/uL PT 12.3 H (9.0-12.0) sec INR 1.2 H (<1.2) Sodium 136 L (137-145) mmol/L Carbon Dioxide 34 H (22-30) mmol/L BUN 41 H (9-20) mg/dL Assessment and Plan Assessment: Shortness of breath with possible congestive heart failure acute exacerbation with acute on chronic diastolic dysfunction, ejection fraction is 50-60% Tense ascites secondary to cryptogenic cirrhosis and congestive heart failure status post abdominal paracentesis, 9.1 L of hemorrhagic fluid removed Previous abdominal paracentesis done at [facility] Possible acute purulent tracheobronchitis, present on admission Anemia, microcytic, secondary to cirrhosis of the liver Thrombocytopenia secondary to cirrhosis of liver Hyponatremia Increased BUN 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 Will continue to monitor closely. We'll monitor labs and vital signs closely. Awaiting cytology report from the ascitic fluid aspiration done yesterday. Guarded prognosis because of multiple complex medical issues. Will await cardiology recommendations on anticoagulation resumption. Will monitor output of drainage from the paracentesis site. Further recommendations to follow. Possible discharge in 24-48 hours.
[2019-02-11] MEDS: PANTOPRAZOLE 40 MG TABLET PO SCH (16:29)
--- NOTE | 2019-02-11 21:05 | P.PN ---
Subjective Progress Note Date: 02/11/19 Principal diagnosis: Decompensated cryptogenic cirrhosis, ascites Patient is seen sitting bedside. Reports breathing is much improved after paracentesis. Patient reporting some leaking from site of paracentesis. Objective - Vital Signs Vital signs: Vital Signs Temp 97.9 F 02/11/19 05:11 Pulse 80 02/11/19 20:34 Resp 22 02/11/19 20:22 BP 105/66 02/11/19 12:07 Pulse Ox 97 02/11/19 12:07 Intake & Output 02/11/19 02/11/19 02/12/19 06:59 18:59 06:59 Intake Total 50 Balance 50 Weight 74.5 kg Intake: Intake, IV Titration 50 Amount cefTRIAXone 1 gm In 50 Sodium Chloride 0.9% 50 ml @ 100 mls/hr IVPB Q24H [facility] Rx#:[id number] Other: Voiding Method Self-Catheterization Self-Catheterization # Voids 3 - Exam On physical examination, patient appears comfortable in no apparent distress. HEAD: Normocephalic, atraumatic. EYES: No scleral icterus. No conjunctival injection. MOUTH: No lesions, tongue midline. NECK: Trachea midline, no gross abnormalities. CHEST: Decreased air entry with coarse respiratory notices in the lower lung guy bilaterally, improved from yesterday. HEART: S1-S2 appreciated. ABDOMEN: Soft, distended with positive fluid wave, some leaking of fluid from right abdomen as site of paracentesis. Bowel sounds are positive. No organomegaly. No guarding or rigidity. EXTREMITIES: Bilateral pedal edema. SKIN: No rashes, no jaundice. NEUROLOGIC: Alert and oriented x3. No focal deficits. - Labs CBC & Chem 7: 02/11/19 08:03 02/11/19 08:03 Labs: Abnormal Lab Results - Last 24 Hours (Table) 02/11/19 02/11/19 02/11/19 Range/Units 08:03 08:03 08:03 RBC 4.21 L (4.30-5.90) m/uL MCV 103.2 H (80.0-100.0) fL Plt Count 122 L (150-450) k/uL Lymphocytes # 0.4 L (1.0-4.8) k/uL PT 12.3 H (9.0-12.0) sec INR 1.2 H (<1.2) Sodium 136 L (137-145) mmol/L Carbon Dioxide 34 H (22-30) mmol/L BUN 41 H (9-20) mg/dL Assessment and Plan (1) Decompensation of cirrhosis of liver Narrative/Plan: 80-year-old with multiple medical comorbidities including atrial fibrillation on Eliquis therapy, chronic diastolic heart failure and cryptogenic cirrhosis who presented to the hospital with complaints of shortness of breath and productive cough and is currently being treated for an acute exacerbation of chronic diastolic heart failure. The patient has a known history of cryptogenic decompensated cirrhosis requiring paracentesis twice in the past, with his last paracentesis in December with approximately 8 L removed. The patient is on home diuretic therapy with Lasix 60 mg twice daily and Aldactone 25 mg twice daily and does report a tearing to a low-sodium diet. He does report abdominal distention and lower extremity swelling. Denies any prior history of variceal bleed or hepatic encephalopathy. Current Visit: Yes Status: Acute Code(s): K72.90 - HEPATIC FAILURE, UNSPECIFIED WITHOUT COMA SNOMED Code(s): 960418185 (2) Abdominal distension Current Visit: No Status: Acute Code(s): R14.0 - ABDOMINAL DISTENSION (GASEOUS) SNOMED Code(s): 36968519 (3) Elevated liver enzymes Current Visit: No Status: Acute Code(s): R74.8 - ABNORMAL LEVELS OF OTHER SERUM ENZYMES SNOMED Code(s): 102584892 Plan: Supportive care Low-sodium diet Continue diuretic therapy with Lasix milligrams IV twice daily and Aldactone, with dose increased to 50 mg twice daily from 25 mg twice daily Continue to monitor her creatinine and potassium in the setting of increased diuretic therapy Continue to hold anticoagulation therapy Patient is status post paracentesis with 9 L removed Cardiology service following, appreciate the recommendations, currently treating the patient for acute exacerbation of chronic diastolic heart failure Continue to monitor her symptomatically Thank you for allowing us to participate in the care of the patient we will continue to follow
[2019-02-12] MEDS: FUROSEMIDE 20 MG TAB PO SCH ×2 (06:18→16:08)
[2019-02-12] MEDS: LEVOTHYROXINE 137 MCG TAB PO SCH (06:18)
[2019-02-12] MEDS: IPRATROPIUM-ALBUTEROL 3 ML NEB INHALATION SCH ×3 (07:45→20:27)
[2019-02-12] MEDS: SPIRONOLACTONE 25 MG TAB PO SCH ×2 (08:09→20:50)
[2019-02-12] MEDS: POTASSIUM CHLORIDE ER 20 MEQ TAB.ER PO SCH ×2 (08:09→20:50)
[2019-02-12] MEDS: ATORVASTATIN 40 MG TAB PO SCH (08:09)
[2019-02-12] MEDS: PANTOPRAZOLE 40 MG TABLET PO SCH ×2 (08:09→17:15)
[2019-02-12] MEDS: ISOSORBIDE MONONITRATE ER 15 MG TAB PO SCH (08:09)
[2019-02-12] MEDS: CARVEDILOL 3.125 MG TAB PO SCH ×2 (08:09→17:15)
[2019-02-12 10:17] LABS: Potassium 4.7 mmol/L (3.5-5.1)
[2019-02-12 10:55] LABS: Basophils % (A) 0 %; Eosinophils # (A) 0.1 k/uL (0-0.7); Eosinophils % (A) 2 %; HCT 41.4 % (39.0-53.0); HGB 12.9 gm/dL (13.0-17.5); Lymphocytes # (A) 0.5 k/uL (1.0-4.8); Lymphocytes % (A) 11 %; MCH 31.8 pg (25.0-35.0); MCHC 31.3 g/dL (31.0-37.0); MCV 101.6 fL (80.0-100.0); Macrocytosis Slight; Mean Platelet Volume 7.3; Monocytes # (A) 0.3 k/uL (0-1.0); Monocytes % (A) 6 %; Neutrophils # (A) 3.8 k/uL (1.3-7.7); Neutrophils % (A) 79 %; Platelet Count 139 k/uL (150-450); RBC 4.07 m/uL (4.30-5.90); RDW 14.1 % (11.5-15.5); WBC 4.8 k/uL (3.8-10.6)
--- NOTE | 2019-02-12 12:01 | PN ---
PROGRESS NOTE FOLLOW-UP NOTE: Shahzad is an 88-year-old gentleman who was admitted to hospital with atrial fibrillation, chronic diastolic heart failure, cirrhosis of the liver. He has ascites and underwent paracentesis on this admission. The patient is still oozing blood from the paracentesis site. He is off anticoagulant at this time. He is otherwise doing well and is free of symptoms. On exam, heart rate is 80 beats per minute. Blood pressure is 95/58. Oxygen saturation is 96% on room air. There is no jugular venous distention. Chest exam reveals diminished air entry at the bases. Heart exam reveals first and second heart sounds. No gallop. Examination of extremities did not reveal any edema. ASSESSMENT: 1. Acute on chronic diastolic heart failure. 2. History of cryptogenic cirrhosis with ascites, status post paracentesis. 3. Chronic persistent atrial fibrillation. PLAN: Will hold the Eliquis until the bleeding at the paracentesis site resolves. Continue rest of his medications. MMODL / IJN: [id number] /
--- NOTE | 2019-02-12 17:13 | PN ---
PROGRESS NOTE DATE OF SERVICE: 02/12/2019 This 88-year-old gentleman who was admitted with significant shortness of breath and CHF, acute exacerbation, also had tense ascites. After ascitic tap, some leakage was noted. Ileostomy bag was applied. No chest pain. No palpitations. No fever. On exam, alert and oriented x3. Pulse 74, blood pressure 92/52, respirations 16, temperature 97.8, pulse ox 99% on room air. HEENT: Conjunctivae normal. NECK: No jugular venous distention. CARDIOVASCULAR SYSTEM: S1, S2 muffled. RESPIRATORY SYSTEM: Breath sounds diminished at the bases. No rhonchi. No crackles. ABDOMEN: Soft. Ascites present. LEGS: No edema. No swelling. NERVOUS SYSTEM: No focal deficit. LABS: WBC 4.8, hemoglobin 12.9. Sodium 134, potassium 4.7. ASSESSMENT: 1. Shortness of breath with possible congestive heart failure, acute exacerbation, with acute on chronic diastolic dysfunction, ejection fraction 50% to 60%. 2. Tense ascites secondary to cryptogenic cirrhosis as well as congestive heart failure, status post abdominal paracentesis; about 9.1 L of hemorrhagic fluid removed. 3. Previous abdominal paracentesis done at [facility]. 4. Possible acute purulent tracheobronchitis, present on admission. 5. Anemia, macrocytic, secondary to cirrhosis of the liver. 6. Thrombocytopenia secondary to cirrhosis of the liver. 7. Hyponatremia. 8. Increased BUN. 9. 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 10.History of atrial fibrillation, on Eliquis, currently being held by Cardiology because of serosanguineous fluid leakage at the paracentesis site. 11.Hypokalemia. 12.Hard of hearing. RECOMMENDATIONS AND DISCUSSION: In this 88-year-old gentleman who presented with multiple medical issues, at this time I recommend to continue current management, continue symptomatic treatment, continue with the p.o. diuretics, continue with the antibiotics. Continue the rest of the medications. Prognosis guarded because of multiple complex medical issues. Further recommendations to follow. MMODL / IJN: [id number] /
[2019-02-13] MEDS: LEVOTHYROXINE 137 MCG TAB PO SCH (05:55)
[2019-02-13] MEDS: FUROSEMIDE 20 MG TAB PO SCH ×2 (05:55→18:01)
[2019-02-13] MEDS: IPRATROPIUM-ALBUTEROL 3 ML NEB INHALATION SCH ×3 (06:00→19:33)
[2019-02-13 07:47] LABS: Basophils % (A) 1 %; Eosinophils # (A) 0.2 k/uL (0-0.7); Eosinophils % (A) 3 %; HCT 42.9 % (39.0-53.0); HGB 13.7 gm/dL (13.0-17.5); Lymphocytes # (A) 0.5 k/uL (1.0-4.8); Lymphocytes % (A) 9 %; MCH 32.4 pg (25.0-35.0); MCHC 31.9 g/dL (31.0-37.0); MCV 101.8 fL (80.0-100.0); Macrocytosis Slight; Mean Platelet Volume 7.8; Monocytes # (A) 0.4 k/uL (0-1.0); Monocytes % (A) 7 %; Neutrophils # (A) 4.4 k/uL (1.3-7.7); Neutrophils % (A) 79 %; Platelet Count 143 k/uL (150-450); RBC 4.21 m/uL (4.30-5.90); RDW 14.7 % (11.5-15.5); WBC 5.6 k/uL (3.8-10.6)
[2019-02-13 08:05] LABS: Calcium 8.2 mg/dL (8.4-10.2); Potassium 5.6 mmol/L (3.5-5.1)
[2019-02-13] MEDS: CARVEDILOL 3.125 MG TAB PO SCH ×2 (10:20→17:59)
[2019-02-13] MEDS: PANTOPRAZOLE 40 MG TABLET PO SCH ×2 (10:20→18:01)
[2019-02-13] MEDS: ISOSORBIDE MONONITRATE ER 15 MG TAB PO SCH (10:20)
[2019-02-13] MEDS: ATORVASTATIN 40 MG TAB PO SCH (10:21)
[2019-02-13] MEDS: SPIRONOLACTONE 25 MG TAB PO SCH (10:21)
[2019-02-13] MEDS: POTASSIUM CHLORIDE ER 20 MEQ TAB.ER PO SCH ×2 (10:21→10:27)
[2019-02-13] MEDS ORDERED: SODIUM POLYSTYRENE SULFONATE 15 GM/60 ML BOTTLE PO STA (11:00)
[2019-02-13] MEDS ORDERED: SPIRONOLACTONE 25 MG TAB PO STA (11:22)
--- NOTE | 2019-02-13 11:46 | PN ---
PROGRESS NOTE Mr. Sanchez is admitted to hospital with CHF exacerbation and had paracentesis and continued to have oozing from the paracentesis site. Currently, the anticoagulant is on hold. He has history of chronic diastolic heart failure, atrial fibrillation, cirrhosis of the liver. The patient wants to go home. This morning, heart rate is 80 beats per minute. Blood pressure is 84/59. respirations 18. Chest exam reveals diminished air entry at the bases. Heart exam reveals first and second heart sounds, irregular rhythm. Abdomen is soft. Exam of the extremities did not reveal any edema. Labs show a hemoglobin of 13.7, platelet count is 140, creatinine is 1, potassium is 5.6. ASSESSMENT: 1. Chronic atrial fibrillation. 2. Ascites. 3. Cirrhosis of the liver. 4. Hypotension. The patient's Coreg was held this morning. Continue with the Lasix, decrease the dose of Aldactone given the hyperkalemia. MMODL / IJN: [id number] /
[2019-02-13 18:32] LABS: Potassium 4.8 mmol/L (3.5-5.1)
--- NOTE | 2019-02-13 18:48 | PN ---
PROGRESS NOTE DATE OF SERVICE: 02/13/2019. This 88-year-old gentleman who was admitted with shortness of breath and CHF acute exacerbation also had tense ascites. After ascitic tap, some leaking was noted which is improving at this time. The patient also found to have hyperkalemia today with potassium 5.6. Kayexalate has been given at this time. No chest pain. No palpitations. No fever. Potassium dose was also being held. PHYSICAL EXAM: Alert and oriented times three. Pulse 72, blood pressure 87/43, respirations 16, temperature 97.8, pulse ox 93% on room air. HEENT: Conjunctivae normal. NECK: No JVD. CARDIOVASCULAR: S1, S2 muffled. RESPIRATIONS: Breath sounds diminished in the bases. A few scattered rhonchi and crackles. ABDOMEN is soft, obese. Ascites present. LEGS no edema. No swelling. NERVOUS SYSTEM: No focal deficits. LABS: WBC 5.7, hemoglobin 13.7. Sodium 130, potassium 5.6. ASSESSMENT: 1. Shortness of breath with possible congestive heart failure acute exacerbation with acute on chronic diastolic dysfunction, ejection fraction 50 to 60%. 2. Tense ascites secondary to cryptogenic cirrhosis as well as congestive heart failure, status post abdominal paracentesis with 9.1 L hemorrhagic fluid removed. 3. Minimal leakage from the abdominal paracentesis site. 4. Previous abdominal paracentesis done at [facility]. 5. Acute purulent tracheobronchitis present on admission. 6. Anemia macrocytic secondary to cirrhosis of the liver. 7. Thrombocytopenia secondary to cirrhosis of the liver. 8. Hyponatremia. 9. Increased BUN. 10.History of severe tricuspid regurgitation, myxomatis tricuspid valve. 11.History of atrial fibrillation on Eliquis, currently being held by Cardiology because of serosanguineous fluid leakage of the paracentesis site. 12.Hypokalemia. 13.Hard of hearing. RECOMMENDATIONS AND DISCUSSION: Recommend to continue current medications, continue to monitor. Current medications. Symptomatic treatment. Otherwise, x-ray, repeat lytes. Stop potassium as mentioned earlier. We will continue to monitor. Guarded prognosis because of multiple complex medical issues. Further recommendations to follow. Once the lytes are stabilized, the patient will be able to be discharged home. MMODL / IJN: [id number] /
--- NOTE | 2019-02-13 19:36 | P.PN ---
Subjective Progress Note Date: 02/13/19 Principal diagnosis: Decompensated cryptogenic cirrhosis, ascites Patient is seen sitting bedside. Reports breathing is much improved and he is tolerating his diet. Abdominal leaking from paracentesis site is less. Objective - Vital Signs Vital signs: Vital Signs Temp 97.9 F 02/13/19 12:22 Pulse 76 02/13/19 12:35 Resp 16 02/13/19 12:22 BP 87/43 02/13/19 12:22 Pulse Ox 93 L 02/13/19 12:22 Intake & Output 02/13/19 02/13/19 02/14/19 06:59 18:59 06:59 Intake Total 880 Output Total 10 Balance 880 -10 Weight 74 kg Intake: Intake, IV Titration 100 Amount cefTRIAXone 1 gm In 100 Sodium Chloride 0.9% 50 ml @ 100 mls/hr IVPB Q24H [facility] Rx#:[id number] Oral 780 Output: Gastric Drainage 10 Other: Voiding Method Self-Catheterization Self-Catheterization # Voids 2 - Exam On physical examination, patient appears comfortable in no apparent distress. HEAD: Normocephalic, atraumatic. EYES: No scleral icterus. No conjunctival injection. MOUTH: No lesions, tongue midline. NECK: Trachea midline, no gross abnormalities. CHEST: Decreased air entry with coarse respiratory notices in the lower lung guy bilaterally, improved from yesterday. HEART: S1-S2 appreciated. ABDOMEN: Soft, abdomen is less distended. Bowel sounds are positive. No organomegaly. No guarding or rigidity. EXTREMITIES: Bilateral pedal edema. SKIN: No rashes, no jaundice. NEUROLOGIC: Alert and oriented x3. No focal deficits. - Labs CBC & Chem 7: 02/13/19 07:05 02/13/19 17:50 Labs: Abnormal Lab Results - Last 24 Hours (Table) 02/13/19 02/13/19 02/13/19 Range/Units 07:05 07:05 17:50 RBC 4.21 L (4.30-5.90) m/uL MCV 101.8 H (80.0-100.0) fL Plt Count 143 L (150-450) k/uL Lymphocytes # 0.5 L (1.0-4.8) k/uL Sodium 133 L 131 L (137-145) mmol/L Potassium 5.6 H (3.5-5.1) mmol/L Chloride 94 L 93 L (98-107) mmol/L Carbon Dioxide 35 H 33 H (22-30) mmol/L BUN 32 H (9-20) mg/dL Calcium 8.2 L (8.4-10.2) mg/dL Assessment and Plan (1) Decompensation of cirrhosis of liver Narrative/Plan: 80-year-old with multiple medical comorbidities including atrial fibrillation on Eliquis therapy, chronic diastolic heart failure and cryptogenic cirrhosis who presented to the hospital with complaints of shortness of breath and productive cough and is currently being treated for an acute exacerbation of chronic diastolic heart failure. The patient has a known history of cryptogenic decompensated cirrhosis requiring paracentesis twice in the past, with his last paracentesis in December with approximately 8 L removed. The patient is on home diuretic therapy with Lasix 60 mg twice daily and Aldactone 25 mg twice daily and does report a tearing to a low-sodium diet. He does report abdominal distention and lower extremity swelling. Denies any prior history of variceal bleed or hepatic encephalopathy. Current Visit: Yes Status: Acute Code(s): K72.90 - HEPATIC FAILURE, UNSPECIFIED WITHOUT COMA SNOMED Code(s): 232860307 (2) Abdominal distension Current Visit: No Status: Acute Code(s): R14.0 - ABDOMINAL DISTENSION (GASEOUS) SNOMED Code(s): 41359216 (3) Elevated liver enzymes Current Visit: No Status: Acute Code(s): R74.8 - ABNORMAL LEVELS OF OTHER S DARRELL ENZYMES SNOMED Code(s): 188353361 Plan: Supportive care Low-sodium diet Continue diuretic therapy with Lasix and Aldactone Continue to monitor her creatinine and potassium in the setting of increased diuretic therapy Continue to hold anticoagulation therapy Patient is status post paracentesis with 9 L removed Cardiology service following, appreciate the recommendations, currently treating the patient for acute exacerbation of chronic diastolic heart failure Continue to monitor her symptomatically Thank you for allowing us to participate in the care of the patient, the gastroenterology service will stand by, please call us back with any questions or concerns
[2019-02-14] MEDS: FUROSEMIDE 20 MG TAB PO SCH (05:53)
[2019-02-14] MEDS: LEVOTHYROXINE 137 MCG TAB PO SCH (05:53)
[2019-02-14 07:55] LABS: Calcium 8.4 mg/dL (8.4-10.2); Potassium 4.5 mmol/L (3.5-5.1)
[2019-02-14] MEDS: IPRATROPIUM-ALBUTEROL 3 ML NEB INHALATION SCH ×2 (08:43→14:00)
[2019-02-14] MEDS ORDERED: SPIRONOLACTONE 25 MG TAB PO SCH (09:00)
[2019-02-14] MEDS: CARVEDILOL 3.125 MG TAB PO SCH (09:53)
[2019-02-14] MEDS: ISOSORBIDE MONONITRATE ER 15 MG TAB PO SCH (09:56)
[2019-02-14] MEDS: PANTOPRAZOLE 40 MG TABLET PO SCH (09:56)
[2019-02-14] MEDS: ATORVASTATIN 40 MG TAB PO SCH (09:56)
[2019-02-14 12:32] VITALS: BP 90/60; PULSE 71; RESP 17; TEMP 97.9
--- NOTE | 2019-02-14 13:05 | P.PN ---
Subjective This is a pleasant 88-year-old male past medical history significant for atrial fibrillation on long-term anticoagulation, chronic diastolic heart failure, cryptogenic cirrhosis and hypothyroidism. He states he recently underwent a paracentesis at [facility] in early December. He presented to the hospital with symptoms of shortness of breath and cough. He states for the previous one to 2 days he has noticed increasing shortness of breath at rest and with exertion. He is also coughing bringing up yellow green sputum. Denies fever or chills at home. He denies significant chest discomfort, there've been no palpitations, nausea, vomiting or diaphoresis. He states his abdomen does seem tight. He states he weighs himself daily and there has been no real fluctuation in his daily weight. He is seen and examined resting comfortably in no acute distress. EKG reveals atrial fibrillation with poor R-wave progression and nonspecific ST abnormalities. Chest x-ray reveals cardiomegaly and chronic proximal changes without an acute cardiopulmonary process. 02/09/2019 Pt seen and examined sitting up in bed. He is complaining of ongoing shortness of breath with increased congestion on today's exam, despite diuresis. He also has some epigastric discomfort due to increasing abdominal girth. Abdominal ultrasound reveals large amount of ascites in all quadrants. Eliquis was held last night and he is scheduled for paracentesis with interventional radiology . Blood pressure marginal this morning at 101/68 heart rate 62 afeibrile and maintaining oxygen saturation on room air. Laboratory data reviewed, WBC 5.2, hgb 12.5, plt 125, sodium 137, potassium 3.7, creatinine 1.15. Echo reveals preserved LV systolic function with EF 55-60%, appearance suggestive of infiltrative cardiomyopathy mild AR, mild with no gradient, severe TR, moderate MR and mild PH with RVSP 33 mmHg. Currently maintained on IV lasix 60 mg TID, aldactone 25 mg BID, imdur 15 mg daily, carvedilol 3.125 mg BID and atorvastatin 40 mg daily. 02/10/2019 Pt is seen and examined sitting up in bed. His breathing is much better since undergoing paracentesis, 9.1 liters removed. He states his breathing is much improved, however he continues to feel abdominal discomfort, mostly in the epigastric region. Laboratory data reviewed, WBC 4.8, hgb 12.2, plt 129, sodium 136, potassium 3.3, creatinine 1.08. Blood pressure 107/68 heart rate 75. Weight is down this morning 4 kg. 02/11/2019 Pt is seen and examined resting comfortably in bed. He is having significant amount of drainage from paracentesis site. Frequent dressing changes per the nurse saturated with serous blood tinged drainage. He denies pain at the site, just general discomfort overall from being constantly saturated. He denies chest pain, worsening shortness of breath, dizziness or palpitations. Blood pressure 105/66 heart rate 88 afebrile maintaining oxygen saturation on room air. Laboratory data reviewed, WBC 4.0, hemoglobin 13.6, platelets 122, sodium 136, potassium 4.9, creatinine 1.01. Eliquis continues to remain on hold. He has been transitioned to oral diuretics as of this morning. 02/14/2019 Seen and examined sitting up in the chair in no acute distress. There is no further bleeding noted from the puncture side in the abdomen. He denies shortness of breath, dizziness, chest pain or palpitations. He is quite anxious to be discharged home. Blood pressure 90/60 heart rate 71 afeibrile and maintaining oxygen saturation on room air. Aldactone has been decreased due to an episode of hyperkalemia. Coreg has also been held since frequently throughout admission due to hypotension. GENERAL: This is a 88-year-old male in no apparent distress at the time of my examination. HEENT: Head is atraumatic, normocephalic. Pupils are equal, round. Sclerae anicteric. Conjunctivae are clear. Mucous membranes of the mouth are moist. Neck is supple. There is mild jugular venous distention. No carotid bruit is heard. LUNGS: Some faint scattered rhonchi. No wheezes or rales. No chest wall tenderness is noted on palpation or with deep breathing. HEART: Irregular rate and rhythm with murmur at the left sternal border, no rubs or gallops. S1 and S2 heard. EXTREMITIES: No lower extremity edema, improved from previous exam and no calf tenderness noted. 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 Will discuss resuming at his follow up appointment in the office in 1 week. Stable for discharge home from a cardiac perspective. Nurse Practitioner note has been reviewed, I agree with a documented findings and plan of care. Patient was seen and examined. Objective - Vital Signs Vital signs: Vital Signs Temp 97.9 F 02/14/19 12:31 Pulse 71 02/14/19 12:31 Resp 17 02/14/19 12:31 BP 90/60 02/14/19 12:31 Pulse Ox 94 L 02/14/19 12:31 Intake & Output 02/13/19 02/14/19 02/14/19 18:59 06:59 18:59 Intake Total 890 Output Total 10 Balance -10 890 Weight 73.9 kg Intake: Intake, IV Titration 50 Amount cefTRIAXone 1 gm In 50 Sodium Chloride 0.9% 50 ml @ 100 mls/hr IVPB Q24H [facility] Rx#:[id number] Oral 840 Output: Gastric Drainage 10 Other: Voiding Method Self-Catheterization Self-Catheterization Self-Catheterization # Voids 3 - Labs CBC & Chem 7: 02/13/19 07:05 02/14/19 07:08 Labs: Abnormal Lab Results - Last 24 Hours (Table) 02/13/19 02/14/19 Range/Units 17:50 07:08 Sodium 131 L 135 L (137-145) mmol/L Chloride 93 L 94 L (98-107) mmol/L Carbon Dioxide 33 H 34 H (22-30) mmol/L BUN 31 H (9-20) mg/dL
--- NOTE | 2019-02-14 15:10 | P.DS ---
Providers Date of admission: 02/09/19 15:04 Expected date of discharge: 02/14/19 Attending physician: Oleg Goodwin MD Consults: 02/07/19 16:52 Consult Physician Routine Consulting Provider: Ayan Argueta Consult Reason/Comments: chf Do you want consulting provider notified?: Yes Primary care physician: Angie [facility] Course: final diagnosis shortness of breath with possible congestive heart failure, acute exacerbation with acute on chronic diastolic dysfunction, ejection fraction is 50-60% Tense ascites secondary to cryptogenic cirrhosis as well as congestive heart failure, status post abdominal paracentesis with 9.1 L hemorrhagic fluid removed minimal leakage from the abdominal paracentesis site, resolved Previous abdominal paracentesis done at in December 2018 Acute purulent tracheobronchitis present on admission 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 Anticoagulation will be held until follow-up with cardiology in their office in one week. Cardiology is following this patient. history of present illness this is an 88-year-old male who was admitted with shortness of breath, CHF exacerbation, and tense ascites. Patient underwent a paracentesis and had 9.1 L removed. Patient's anticoagulants were held due to continuous serosanguineous leakage from the paracentesis site. Cardiology was following closely. Per cardiology recommendations the patient will be discharged home and to follow-up with them in the outpatient setting at which time they will discuss resuming anticoagulation therapy. Patient is not having any more active drainage from the site and patient denies any abdominal pain, bleeding, nausea, or vomiting at this time. Yesterday patient was found to have an elevated potassium level of 5.6 and was treated. Current potassium is 4.5. Patient denies any chest pain, shortness of breath, or palpitations at this time. Patient is very eager and willing to go home. Family is at the bedside. On exam vital signs are stable. blood pressure is 90/60, pulse is 71, respirations 17, temp is 97.9F, oxygen saturation is 94% on room air. Cardio S1 and S2 are muffled. Respiratory system shows diminished breath sounds in the bases. Abdomen is soft with mild ascites present. Nervous system shows no focal deficits and gait is steady. Please refer to the medication reconciliation sheet for list of medications. Patient Condition at Discharge: Fair Plan - Discharge Summary Discharge Rx Participant: Yes New Discharge Prescriptions: Continue Atorvastatin [Lipitor] 40 mg PO DAILY #30 tab Isosorbide Mononitrate ER [Imdur] 15 mg PO DAILY Levothyroxine Sodium [Synthroid] 137 mcg PO DAILY Furosemide [Lasix] 60 mg PO BID@0900,1600 Apixaban [Eliquis] 2.5 mg PO BID #60 tablet Spironolactone [Aldactone] 25 mg PO DAILY #30 tab Discontinued Carvedilol [Coreg] 3.125 mg PO BID Spironolactone [Aldactone] 25 mg PO BID Discharge Medication List Atorvastatin [Lipitor] 40 mg PO DAILY #30 tab 03/17/18 [Rx] Isosorbide Mononitrate ER [Imdur] 15 mg PO DAILY 05/18/18 [History] Furosemide [Lasix] 60 mg PO BID@0900,1600 02/07/19 [History] Levothyroxine Sodium [Synthroid] 137 mcg PO DAILY 02/07/19 [History] Apixaban [Eliquis] 2.5 mg PO BID #60 tablet 02/14/19 [Rx] Spironolactone [Aldactone] 25 mg PO DAILY #30 tab 02/14/19 [Rx] Follow up Appointment(s)/Referral(s): [facility] [NON-STAFF] - 1-2 Days Angie Palomares MD [Primary Care Provider] - 02/21/19 3:30 pm Cole Bucio MD [STAFF PHYSICIAN] - 02/22/19 4:00 pm () Patient Instructions/Handouts: Cirrhosis (DC), Dyspnea (DC), Paracentesis (DC) Activity/Diet/Wound Care/Special Instructions: Per Yuliet Lentz to remain on hold until patient seen by Dr. Bucio in the office in 1-2 week. Activity limited until follow-up Heart healthy diet Discharge Disposition: HOME WITH HOME HEALTH SERVICES
== END 2019-02-14 14:45 | disposition home health service (06) | DRG 292 ==
LOC: EC 13:30 → 1SOBS 16:52 → 3NMEDONC 17:48 → OBSVTOIN 02-09 15:04
PROVIDERS: ADMIT Internal Medicine; ATTEND Internal Medicine
PROC: 0W9G3ZZ Drainage of Peritoneal Cavity, Percutaneous Approach (ICD-10-PCS; principal; 2019-02-10)
DX: I11.0 Hypertensive heart disease with heart failure (principal); I48.1 Persistent atrial fibrillation; E87.1 Hypo-osmolality and hyponatremia; R18.8 Other ascites; I25.10 Atherosclerotic heart disease of native coronary artery without angina pectoris; D50.9 Iron deficiency anemia, unspecified; D53.9 Nutritional anemia, unspecified; D69.59 Other secondary thrombocytopenia; E03.9 Hypothyroidism, unspecified; E78.5 Hyperlipidemia, unspecified; E87.5 Hyperkalemia; E87.6 Hypokalemia; H91.90 Unspecified hearing loss, unspecified ear; I07.1 Rheumatic tricuspid insufficiency; I50.33 Acute on chronic diastolic (congestive) heart failure; J20.9 Acute bronchitis, unspecified; K72.90 Hepatic failure, unspecified without coma; K74.69 Other cirrhosis of liver; Z79.01 Long term (current) use of anticoagulants; Z79.890 Hormone replacement therapy; Z79.899 Other long term (current) drug therapy; Z80.0 Family history of malignant neoplasm of digestive organs; Z87.891 Personal history of nicotine dependence; Z96.652 Presence of left artificial knee joint; I95.9 Hypotension, unspecified
CPT/HCPCS: 36415; 49083; 71045; 71046; 76705; 80048; 80051; 82105; 83880; 84450; 84460; 85025; 85610; 88108; 88305; 93005; 93306; 94640; 94644; 96374; 99285

== ENCOUNTER → 2019-06-01 | Day surgery (SDC) | payer MEDICARE ==
[2019-05-30 15:09] VITALS: BMI 22.5
[~2019-06-01] MED LIST: ATROPINE SULFATE 0.4 MG/ML 1 ML VIAL SQ ONE; BALANCED SALT IRRIG SOLN COMB2 15 ML IRRIG.SOLN IRRIGATION ONE; BALANCED SALT IRRIG SOLN COMB2 500 ML IRRIGATION ONE; HYALURONATE SODIUM INTRAOCULAR 1 EACH SYRINGE (12MG/ML) INTRAOCULA ONE; LACTATED RINGERS 1,000 ML IV SCH; LIDOCAINE 1% 20 ML VIAL (10MG/ML) FOR IV START INTRADERMA PRN; MIDAZOLAM 2 MG/2 ML VIAL ONE; MOXIFLOXACIN HCL 0.5% DROPS 3 ML BTL OP NR; SODIUM CHLORIDE 0.9% 500 ML 500 ML IV ONE; TETRACAINE 0.5% OPHTH (PF) DROPS 4 ML BTL OP NR; TRYPAN BLUE 0.06% SYRINGE 0.5 ML SYRINGE INTRAOCULA ONE; fentaNYL (PF) 50 MCG/ML 2 ML AMP ONE
[2019-06-01] MEDS: PILOCARPINE 2% OPHTH DROPS 15 ML BTL OP NR ×3 (09:30→09:45)
[2019-06-01 09:57] VITALS: TEMP 97.8
--- NOTE | 2019-06-01 11:49 | P.OP ---
Date of Procedure: 06/01/19 Preoperative Diagnosis: Fuch's corneal dystrophy Postoperative Diagnosis: same Procedure(s) Performed: DMEK Anesthesia: MAC Surgeon: Mg Collado Condition: stable Disposition: same day Indications for Procedure: failing cornea Operative Findings: No complications
[2019-06-01 12:41] VITALS: RESP 16
[2019-06-01 13:14] VITALS: BP 100/64; PULSE 68
--- NOTE | 2019-06-02 05:25 | OP ---
OPERATIVE REPORT PROCEDURE: Descemet membrane endothelial keratoplasty of the right eye. PREOPERATIVE DIAGNOSIS: Fuchs' dystrophy with corneal edema. POSTOPERATIVE DIAGNOSES: Fuchs' dystrophy with corneal edema. SURGEON: Dr. Mg Collado. ANESTHESIA: Topical. ESTIMATED BLOOD LOSS: None. SPECIMEN TAKEN: Culture of the donor solution but no tissue samples were sent to pathology. NARRATIVE: After obtaining the appropriate consent, the patient was brought to the operating room. There he was placed under cardiac monitoring, prepped and draped in the usual sterile manner. Attention was first directed to the donor tissue identified as [id number]. Left lamellar posterior layer only tissue in the Bain tube. This was correctly identified and was placed on a 3 mL syringe with balanced salt solution. Attention was then directed to the patient and 4 paracenteses using an MVR blade were created in each of the diagonal quadrants. This was followed by instillation of Xylocaine MPF into the anterior chamber as well as placing a 8.25 mm Maria C trephination blade centrally on the patient's cornea. Each of the paracenteses as well as the outline of the Maria C ring were marked with gentian romero. This was followed by instillation of Trypan Blue staining the anterior chamber contents for 3 minutes total. This was irrigated away and instillation of Amvisc was placed in the patient's eye to stabilize the anterior chamber. Using a Montez-Sinskey hook, scoring of the endothelium was accomplished within the boundaries of the central ring on the patient's cornea. This was followed by using a Descemet's membrane stripping tool which easily removed the diseased endothelium. A 2.75 mm keratome was used to create a self-sealing corneal flap incision. Through this opening, lucent Descemet membrane was removed from the anterior chamber and this was followed by thorough irrigation of the anterior chamber under irrigation and aspiration removing all remaining Amvisc. The anterior chamber of the eye was partially deflated and the donor tissue was then brought to the patient's eye. Initial attempt to place the stripped tissue within the anterior chamber was followed by ejection of the donor tissue into the temporal canthal area. This was immediately returned to the Bain tube and placed in a James dish with balanced salt solution to attempt to second delivery of the tissue into the eye. A little bit less anterior chamber fluid was left in the anterior chamber of the patient's eye and a second attempt to inject the tissue was successful trapping the donor tissue within the anterior chamber. A 10-0 nylon suture in an X fashion was used to secure the temporal incision. Once the tissue was inside the eye and the temporal incision secured, manipulation of the Descemet membrane into its proper position was accomplished which did require one flip of the tissue to orient it in the proper anterior-posterior orientation. Once the tissue had sufficiently unrolled and remained properly centered within the patient's eye, a small air bubble was inserted. This was followed by using SF6 at 20% concentration and this was injected into the patient's eye at a higher pressure slightly reducing the patient's perception of light from this eye. He was left in the operating room with the higher pressure for approximately 20 minutes and at the end of this time balanced salt solution was injected while removing a good portion of the gas bubble and then followed by refilling the anterior chamber about 50% with the 20% SF6. Two drops of moxifloxacin as well as two drops of 1% atropine as well as 0.5% timolol was placed on the patient's eye. The eye was shielded and the patient was returned to the recovery area where he remained supine for an additional hour. Following confirmation at a slit lamp at the bedside that the corneal tissue had not migrated or from the host bed, the patient was then released to home in good condition. There were no complications from the procedure. He otherwise tolerated the procedure well. VIKI / AAMIR: [id number] /
== END | disposition home or self-care (01) ==
LOC: OR 08:24
PROVIDERS: ATTEND Ophthalmology
DX: H18.51 Endothelial corneal dystrophy (principal); H40.831 Aqueous misdirection, right eye; H52.32 Aniseikonia; H52.13 Myopia, bilateral; H52.223 Regular astigmatism, bilateral; E03.9 Hypothyroidism, unspecified; I50.9 Heart failure, unspecified; I48.91 Unspecified atrial fibrillation; I38 Endocarditis, valve unspecified; K74.60 Unspecified cirrhosis of liver; Z98.42 Cataract extraction status, left eye; Z98.41 Cataract extraction status, right eye; Z96.1 Presence of intraocular lens; Z96.652 Presence of left artificial knee joint; Z80.9 Family history of malignant neoplasm, unspecified; Z82.61 Family history of arthritis; Z97.3 Presence of spectacles and contact lenses; Z79.01 Long term (current) use of anticoagulants; Z79.890 Hormone replacement therapy; Z79.899 Other long term (current) drug therapy
CPT/HCPCS: 87070; 87205; 87075; 87102; 65756; V2785; J2250; J0461; J3010

== ENCOUNTER 2019-06-03 07:25 | Day surgery (SDC) | payer MEDICARE ==
[2019-06-02 13:27] VITALS: BMI 23.1
[~2019-06-03 07:25] MED LIST changes: -ATROPINE SULFATE 0.4 MG/ML 1 ML VIAL SQ ONE; -BALANCED SALT IRRIG SOLN COMB2 15 ML IRRIG.SOLN IRRIGATION ONE; -BALANCED SALT IRRIG SOLN COMB2 500 ML IRRIGATION ONE; -HYALURONATE SODIUM INTRAOCULAR 1 EACH SYRINGE (12MG/ML) INTRAOCULA ONE; -LACTATED RINGERS 1,000 ML IV SCH; -MIDAZOLAM 2 MG/2 ML VIAL ONE; -MOXIFLOXACIN HCL 0.5% DROPS 3 ML BTL OP NR; +MOXIFLOXACIN HCL 0.5% DROPS 3 ML BTL OP ONE; -SODIUM CHLORIDE 0.9% 500 ML 500 ML IV ONE; -TETRACAINE 0.5% OPHTH (PF) DROPS 4 ML BTL OP NR; +TETRACAINE 0.5% OPHTH (PF) DROPS 4 ML BTL OP ONE; -TRYPAN BLUE 0.06% SYRINGE 0.5 ML SYRINGE INTRAOCULA ONE; -fentaNYL (PF) 50 MCG/ML 2 ML AMP ONE
[2019-06-03] MEDS: PILOCARPINE 2% OPHTH DROPS 15 ML BTL OP ONE ×3 (08:07→08:18)
[2019-06-03] MEDS: LACTATED RINGERS 1,000 ML IV SCH ×2 (08:16→08:40)
[2019-06-03 08:19] VITALS: TEMP 97.8
[2019-06-03] MEDS ORDERED: MIDAZOLAM 2 MG/2 ML VIAL ONE (08:38)
[2019-06-03] MEDS ORDERED: BALANCED SALT IRRIG SOLN COMB2 15 ML IRRIG.SOLN INTRAOCULA ONE (09:02)
[2019-06-03 09:19] VITALS: RESP 16
--- NOTE | 2019-06-03 09:24 | P.OP ---
Date of Procedure: 06/03/19 Preoperative Diagnosis: post DMEK partial dehissence of tissue Postoperative Diagnosis: same Procedure(s) Performed: rebubbling right eye Implants: none Anesthesia: MAC Surgeon: Mg Collado Estimated Blood Loss (ml): 0 Pathology: none sent Condition: stable Disposition: same day Indications for Procedure: corneal transplant complication Operative Findings: no complication, added additional SF6 to increase pressure
[2019-06-03] MEDS ORDERED: ACETAMINOPHEN TAB 500 MG TAB PO ONE (09:50)
--- NOTE | 2019-06-03 09:52 | OP ---
OPERATIVE REPORT DATE OF SURGERY: 06/03/2019. PROCEDURE: Re-bubbling of the right eye post Descemet transplant. 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 SURGEON: Dr. Mg Collado. ANESTHESIA: Topical. ESTIMATED BLOOD LOSS: None. SPECIMEN TAKEN: None. NARRATIVE: After obtaining the appropriate consent, the patient was brought to the operating room. There he was placed under cardiac monitoring, prepped and draped in the usual sterile manner. Examination of the globe revealed moderate stromal wrinkling as well as probably 40% gas within the anterior chamber of the right eye by palpation. The intra- ocular pressure was approximately 10 mmHg. Using 20% SF6 gas on a 30-gauge hypodermic needle, a tunnel through cornea tissue into the anterior chamber beneath the existing air bubble and transplant so that the additional gas would not disinsert the transplant in its current position. A sufficient amount of SF6 gas was instilled into the anterior chamber to tighten the appearance of the corneal tissue and increase the intra- ocular pressure to approximately 35 mmHg by palpation. Allowing for a few minutes of stabilization, a small amount of balanced salt solution was also instilled into the anterior chamber through the same technique. Intra-ocular pressure at the end of the case was still approximately 35 mmHg. Patient then received 2 drops of 0.5% timolol as well as moxifloxacin. He was shielded in the proper manner and returned to recovery in good condition. MMODL / IJN: [id number] /
[2019-06-03 10:03] VITALS: BP 99/62; PULSE 60
== END 2019-06-03 10:32 | disposition home or self-care (01) ==
LOC: OR 07:25
PROVIDERS: ATTEND Ophthalmology
DX: T86.848 Other complications of corneal transplant (principal); H18.51 Endothelial corneal dystrophy; H40.831 Aqueous misdirection, right eye; H52.32 Aniseikonia; H52.13 Myopia, bilateral; H52.223 Regular astigmatism, bilateral; E03.9 Hypothyroidism, unspecified; I50.9 Heart failure, unspecified; I48.91 Unspecified atrial fibrillation; I25.2 Old myocardial infarction; E78.5 Hyperlipidemia, unspecified; H91.90 Unspecified hearing loss, unspecified ear; Z79.890 Hormone replacement therapy; Z79.899 Other long term (current) drug therapy; Z79.01 Long term (current) use of anticoagulants; Z98.41 Cataract extraction status, right eye; Z98.42 Cataract extraction status, left eye; Z96.1 Presence of intraocular lens; Z96.652 Presence of left artificial knee joint; Z80.9 Family history of malignant neoplasm, unspecified; Z82.61 Family history of arthritis; Z97.3 Presence of spectacles and contact lenses; Z98.890 Other specified postprocedural states
CPT/HCPCS: 66020; J2250

== ENCOUNTER 2019-08-15 10:49 | Day surgery (SDC) | payer MEDICARE ==
[2019-08-15 11:22] VITALS: TEMP 97.9
[2019-08-15 11:51] LABS: Mean Platelet Volume 7.7; Platelet Count 138 k/uL (150-450)
[2019-08-15 12:10] LABS: INR 1.2 (<1.2); Prothrombin Time 11.7 sec (9.0-12.0)
[2019-08-15] MEDS: ALBUMIN HUMAN 25% 50 ML in EMPTY BAG 1 BAG IVPB SCH ×2 (13:01→13:15)
[2019-08-15 14:05] VITALS: BP 98/58; PULSE 67; RESP 14
--- NOTE | 2019-08-15 16:49 | US ---
EXAMINATION TYPE: US paracentesis abd w/image DATE OF EXAM: 08/15/2019 CLINICAL HISTORY: Ascites, cirrhosis The procedure was discussed with the patient. The risks, complications, benefits, and alternatives we re discussed and any questions were answered. Informed consent was obtained. The patient was placed s upine on the ultrasound table and prepped and draped in the usual sterile fashion. All elements of maximal barrier technique were utilized. Under ultrasound guidance, access into the right lower quadrant was obtained, via the paracentesis catheter system and direct ultrasound guidanc e. Approximately 5.1 liters of straw-colored fluid was removed. The patient was stable throughout the pr ocedure and remained stable upon discharge from Department of Radiology. IMPRESSION: Successful therapeutic paracentesis under ultrasound guidance. This procedure performed by the unders igned.
== END 2019-08-15 13:50 | disposition home or self-care (01) ==
LOC: RADPROMAIN 10:49
PROVIDERS: ATTEND Internal Medicine
DX: R18.8 Other ascites (principal); K74.60 Unspecified cirrhosis of liver; I48.91 Unspecified atrial fibrillation; I25.2 Old myocardial infarction; E03.9 Hypothyroidism, unspecified; E78.00 Pure hypercholesterolemia, unspecified; I50.22 Chronic systolic (congestive) heart failure; K76.6 Portal hypertension; Z98.49 Cataract extraction status, unspecified eye; Z96.659 Presence of unspecified artificial knee joint; Z98.890 Other specified postprocedural states; Z88.2 Allergy status to sulfonamides; Z79.890 Hormone replacement therapy; Z79.02 Long term (current) use of antithrombotics/antiplatelets; Z79.899 Other long term (current) drug therapy
CPT/HCPCS: 82565; 85049; 85610; 36415; 49083; P9047

== ENCOUNTER 2019-09-12 13:24 | Inpatient (IN) | payer MEDICARE ==
[2019-09-12] MEDS ORDERED: DIPH,PERTUS(ACELL)TETVAC-LF 0.5 ML VIAL IM ONE (14:02)
--- NOTE | 2019-09-12 14:07 | ED ---
General Adult HPI - General Chief complaint: Syncope Stated complaint: syncope, multiple injuries Time Seen by Provider: 09/12/19 13:30 Source: patient, family, RN notes reviewed, old records reviewed Mode of arrival: wheelchair Limitations: physical limitation - History of Present Illness Initial comments: This is an 89-year-old male with past medical history significant for atrial fibrillation. Patient comes into the emergency department today because on Thursday he fell over he states he hit his head hard on the concrete and he is on eliquis. Patient denies losing consciousness. Patient currently denies any headache or any neck pain. Patient any numbness or weakness. Patient states he has a skin tear in his right upper arm and left elbow area. Patient states she's wrapped though since then. Patient denies any recent tetanus. Patient's daughter states his heart rate has been in the 40s recently. Patient states she's had multiple dizzy spells in fact quit driving a week ago because of all these dizzy spells. Patient states that's what occurred Thursday when he bent over and felt the ground. Patient states he really didn't want to come in today with his daughter and granddaughter made him. Patient denies any fevers or chills recently. Patient denies any chest pain difficulty breathing first breath. Patient denies any back pain. Patient denies any abdominal pain patient denies any nausea vomiting diarrhea. - Related Data Home Medications Medication Instructions Recorded Confirmed Furosemide [Lasix] 60 mg PO BID@0900,1600 02/07/19 08/15/19 Atorvastatin [Lipitor] 40 mg PO DAILY 05/30/19 08/15/19 Midodrine HCl [ProAmantine] 2.5 mg PO BID 05/30/19 08/15/19 Apixaban [Eliquis] 2.5 mg PO DAILY 06/02/19 08/15/19 Levothyroxine Sodium [Synthroid] 175 mcg PO DAILY 06/02/19 08/15/19 Spironolactone [Aldactone] 25 mg PO BID 06/02/19 08/15/19 Allergies Allergy/AdvReac Type Severity Reaction Status Date / Time No Known Allergies Allergy Verified 09/12/19 14:00 Review of Systems ROS Statement: Those systems with pertinent positive or pertinent negative responses have been documented in the HPI. ROS Other: All systems not noted in ROS Statement are negative. Past Medical History Past Medical History: Atrial Fibrillation, Heart Failure, Eye Disorder, Hearing Disorder / Deafness, Thyroid Disorder Additional Past Medical History / Comment(s): Self catheterization , LEAKY HEART VALVES, sinus drainage. Had Rt eye surg 06/01/19, "membrane not sealing completely." History of Any Multi-Drug Resistant Organisms: None Reported Past Surgical History: Heart Catheterization, Hernia Repair, Orthopedic Surgery Additional Past Surgical History / Comment(s): left knee replacement, back surgery, prostate surgery. RT Eye Keratoplasty. 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 Past Anesthesia/Blood Transfusion Reactions: No Reported Reaction Past Psychological History: No Psychological Hx Reported Smoking Status: Never smoker Past Alcohol Use History: None Reported Past Drug Use History: None Reported - Past Family History Father Family Medical History: Cancer Additional Family Medical History / Comment(s): pancreas/liver cancer Daughter(s) Family Medical History: Cancer Additional Family Medical History / Comment(s): 'some sort of GI cancer' Mother Family Medical History: No Reported History General Exam - General Exam Comments Initial Comments: GENERAL: Patient is well-developed and well-nourished. Patient is nontoxic and well- hydrated and is in mild distress. ENT: Neck is soft and supple. No significant lymphadenopathy is noted. Oropharynx is clear. Moist mucous membranes. Neck has full range of motion without eliciting any pain. EYES: The sclera were anicteric and conjunctiva were pink and moist. Extraocular movements were intact and pupils were equal round and reactive to light. Eyelids were unremarkable. PULMONARY: Unlabored respirations. Good breath sounds bilaterally. No audible rales rhonchi or wheezing was noted. CARDIOVASCULAR: Patient's heart rate was in the 40s. ABDOMEN: Soft and nontender with normal bowel sounds. SKIN: Patient has a skin tear measuring about 0.5 cm x 3 cm on the right upper arm he also has a skin tear measuring about 3 cm x 5 cm on the left elbow. Patient has a small contusion on the top of his head there is no open wound there. NEUROLOGIC: Patient is alert and oriented x3. Cranial nerves II through XII are grossly intact. Motor and sensory are also intact. Normal speech, volume and content. Symmetrical smile. MUSCULOSKELETAL: Normal extremities with adequate strength and full range of motion. LYMPHATICS: No significant lymphadenopathy is noted PSYCHIATRIC: Normal psychiatric evaluation. Limitations: physical limitation Course Vital Signs 09/12/19 13:30 Temperature 97.2 F L Pulse Rate 68 Respiratory 20 Rate Blood Pressure 101/60 O2 Sat by Pulse 95 Oximetry Medical Decision Making - Medical Decision Making When I was in the room interviewing the patient she was on the monitors heart rate was 40 beats a minute and eventually varied up until about 50 went back down in the low 40s. EKG shows atrial fibrillation with multiple PVCs at a rate of 75 bpm QRS is 94 Q-T intervals 44 QTC is 451. Chest x-ray shows no acute abnormality. CT of the brain and C-spine showed no acute abnormality. Elbow x-ray shows no acute abnormality. Patient's troponin elevated. Patient does not need to be placed on heparin because of his eliquis is already on. Patient also has been bradycardic in the emergency department. I spoke with Dr. morataya he agrees to admit the patient admitted the patient wrote admitting orders I consult cardiology. - Lab Data Result diagrams: 09/12/19 14:06 09/12/19 14:06 Lab Results 09/12/19 09/12/19 09/12/19 Range/Units 14:06 14:06 14:06 WBC 6.1 (3.8-10.6) k/uL RBC 4.18 L (4.30-5.90) m/uL Hgb 13.5 (13.0-17.5) gm/dL Hct 40.2 (39.0-53.0) % MCV 96.1 (80.0-100.0) fL MCH 32.3 (25.0-35.0) pg MCHC 33.6 (31.0-37.0) g/dL RDW 13.4 (11.5-15.5) % Plt Count 134 L (150-450) k/uL Neutrophils % 84 % Lymphocytes % 6 % Monocytes % 6 % Eosinophils % 2 % Basophils % 0 % Neutrophils # 5.1 (1.3-7.7) k/uL Lymphocytes # 0.4 L (1.0-4.8) k/uL Monocytes # 0.4 (0-1.0) k/uL Eosinophils # 0.1 (0-0.7) k/uL Basophils # 0.0 (0-0.2) k/uL PT 11.8 (9.0-12.0) sec INR 1.2 H (<1.2) APTT 25.8 (22.0-30.0) sec Sodium 125 L (137-145) mmol/L Potassium 4.8 (3.5-5.1) mmol/L Chloride 93 L (98-107) mmol/L Carbon Dioxide 20 L (22-30) mmol/L Anion Gap 12 mmol/L BUN 99 H (9-20) mg/dL Creatinine 1.12 (0.66-1.25) mg/dL Est GFR (CKD-EPI)AfAm 67 (>60 ml/min/1.73 sqM) Est GFR (CKD-EPI)NonAf 58 (>60 ml/min/1.73 sqM) Glucose 102 H (74-99) mg/dL Calcium 8.6 (8.4-10.2) mg/dL Magnesium 2.5 H (1.6-2.3) mg/dL Total Bilirubin 2.3 H (0.2-1.3) mg/dL AST 73 H (17-59) U/L ALT 47 (4-49) U/L Alkaline Phosphatase 275 H (38-126) U/L Troponin I (0.000-0.034) ng/mL Total Protein 6.8 (6.3-8.2) g/dL Albumin 3.8 (3.5-5.0) g/dL 09/12/19 Range/Units 14:06 WBC (3.8-10.6) k/uL RBC (4.30-5.90) m/uL Hgb (13.0-17.5) gm/dL Hct (39.0-53.0) % MCV (80.0-100.0) fL MCH (25.0-35.0) pg MCHC (31.0-37.0) g/dL RDW (11.5-15.5) % Plt Count (150-450) k/uL Neutrophils % % Lymphocytes % % Monocytes % % Eosinophils % % Basophils % % Neutrophils # (1.3-7.7) k/uL Lymphocytes # (1.0-4.8) k/uL Monocytes # (0-1.0) k/uL Eosinophils # (0-0.7) k/uL Basophils # (0-0.2) k/uL PT (9.0-12.0) sec INR (<1.2) APTT (22.0-30.0) sec Sodium (137-145) mmol/L Potassium (3.5-5.1) mmol/L Chloride (98-107) mmol/L Carbon Dioxide (22-30) mmol/L Anion Gap mmol/L BUN (9-20) mg/dL Creatinine (0.66-1.25) mg/dL Est GFR (CKD-EPI)AfAm (>60 ml/min/1.73 sqM) Est GFR (CKD-EPI)NonAf (>60 ml/min/1.73 sqM) Glucose (74-99) mg/dL Calcium (8.4-10.2) mg/dL Magnesium (1.6-2.3) mg/dL Total Bilirubin (0.2-1.3) mg/dL AST (17-59) U/L ALT (4-49) U/L Alkaline Phosphatase (38-126) U/L Troponin I 0.281 H* (0.000-0.034) ng/mL Total Protein (6.3-8.2) g/dL Albumin (3.5-5.0) g/dL Critical Care Time Critical Care Time: Yes Total Critical Care Time: 35 Disposition Clinical Impression: Hyponatremia, Non-STEMI (non-ST elevated myocardial infarction), Near syncope Disposition: ADMITTED IP TO THIS HOSP Referrals: Angie Palomares MD [Primary Care Provider] - 1-2 days Time of Disposition: 15:47
[2019-09-12 14:24] LABS: Basophils % (A) 0 %; Eosinophils # (A) 0.1 k/uL (0-0.7); Eosinophils % (A) 2 %; HCT 40.2 % (39.0-53.0); HGB 13.5 gm/dL (13.0-17.5); Lymphocytes # (A) 0.4 k/uL (1.0-4.8); Lymphocytes % (A) 6 %; MCH 32.3 pg (25.0-35.0); MCHC 33.6 g/dL (31.0-37.0); MCV 96.1 fL (80.0-100.0); Mean Platelet Volume 7.9; Monocytes # (A) 0.4 k/uL (0-1.0); Monocytes % (A) 6 %; Neutrophils # (A) 5.1 k/uL (1.3-7.7); Neutrophils % (A) 84 %; Platelet Count 134 k/uL (150-450); RBC 4.18 m/uL (4.30-5.90); RDW 13.4 % (11.5-15.5); WBC 6.1 k/uL (3.8-10.6)
[2019-09-12 14:35] LABS: Albumin 3.8 g/dL (3.5-5.0); Calcium 8.6 mg/dL (8.4-10.2); Magnesium 2.5 mg/dL (1.6-2.3); Potassium 4.8 mmol/L (3.5-5.1); Total Bilirubin 2.3 mg/dL (0.2-1.3); Total Protein 6.8 g/dL (6.3-8.2)
--- NOTE | 2019-09-12 14:37 | CT ---
EXAMINATION TYPE: CT brain annamaria brasher con DATE OF EXAM: 09/12/2019 COMPARISON: 01/15/2019 HISTORY: Fall today with injury CT DLP: 1372.[address] of the brain was performed. The ventricles, basal cisterns and sulci overlying the cerebral convexities demonstrate enlargement. There is no evidence for intracranial hemorrhage or sulcal effacement. There is decreased attenuatio n about the periventricular white matter and deep white matter of both cerebral hemispheres, compatib le with chronic small vessel ischemia. No mass effects are seen. If symptoms persist consider MRI. Osseous calvarium is intact. IMPRESSION: 1. Age related atrophic and chronic small vessel ischemic change without acute intracranial process seen at this time. CT Cervical Spine: Unenhanced CT of the cervical spine was performed with bone and soft tissue window settings submitted . Coronal and sagittal reconstruction is obtained. There is normal alignment and prevertebral soft tissues. No evidence for acute cervical fracture . Scattered degenerative disc disease and spondylosis. Biapical scarring. IMPRESSION: 1. No evidence for acute fracture or subluxation of the cervical spine.
[2019-09-12 14:39] LABS: INR 1.2 (<1.2); Partial Thromboplastin Time 25.8 sec (22.0-30.0); Prothrombin Time 11.8 sec (9.0-12.0)
--- NOTE | 2019-09-12 15:05 | XR ---
EXAMINATION TYPE: XR chest 2V DATE OF EXAM: 09/12/2019 COMPARISON: 02/09/2019 HISTORY: Chest pain. Recent fall. TECHNIQUE: Frontal and lateral views of the chest are obtained. FINDINGS: There is no focal air space opacity, pleural effusion, or pneumothorax seen. The cardiac silhouette size is enlarged. The osseous structures are intact. Moderate multilevel degenerative ch juan luis of the spine and diffuse osseous demineralization. Right middle lobe calcified granuloma is rede monstrated as discussed on the CT abdomen pelvis of 08/06/2018 with visualization of the lung bases on that exam. IMPRESSION: Chronic findings with no acute cardiopulmonary process.
--- NOTE | 2019-09-12 15:09 | XR ---
EXAMINATION TYPE: XR elbow complete LT DATE OF EXAM: 09/12/2019 CLINICAL HISTORY: Trauma with left elbow pain. TECHNIQUE: Frontal, lateral and oblique images of the left elbow are obtained. COMPARISON: None FINDINGS: There is no acute fracture/dislocation evident in the left elbow. No abnormal fat pad sig ns are seen. The overlying soft tissue appears unremarkable. IMPRESSION: There is no acute fracture or dislocation in the left elbow.
[2019-09-12] MEDS ORDERED: NITROGLYCERIN SL TABS 0.4 MG TAB SUBLINGUAL PRN (16:07)
[2019-09-12] MEDS ORDERED: ASPIRIN 81 MG PO STA (16:07)
[2019-09-12] MEDS: NITROGLYCERIN OINT 1 INCH/GM PACKET TOPICAL SCH ×2 (20:16→23:05)
[2019-09-12] MEDS: MIDODRINE 5 MG TAB PO SCH (20:23)
[2019-09-12] MEDS: prednisoLONE ACETATE 1% OPHTH DROPS 5 ML BTL RIGHT EYE SCH (20:55)
[2019-09-12] MEDS ORDERED: SODIUM CHLORIDE 0.9% 1,000 ML IV SCH (21:45)
[2019-09-13] MEDS: NITROGLYCERIN OINT 1 INCH/GM PACKET TOPICAL SCH ×4 (05:00→23:18)
[2019-09-13] MEDS: LEVOTHYROXINE 100 MCG TAB PO SCH (05:45)
[2019-09-13] MEDS: LEVOTHYROXINE 75 MCG TAB PO SCH (05:45)
[2019-09-13 06:39] LABS: Calcium 8.6 mg/dL (8.4-10.2); Potassium 4.6 mmol/L (3.5-5.1)
[2019-09-13] MEDS: prednisoLONE ACETATE 1% OPHTH DROPS 5 ML BTL RIGHT EYE SCH ×4 (08:35→20:36)
[2019-09-13] MEDS: MIDODRINE 5 MG TAB PO SCH ×2 (08:36→20:35)
[2019-09-13] MEDS: ATORVASTATIN 40 MG TAB PO SCH (08:36)
[2019-09-13] MEDS: ASPIRIN 325 MG TAB PO SCH (08:36)
[2019-09-13] MEDS ORDERED: FUROSEMIDE 20 MG TAB PO SCH (09:00)
[2019-09-13] MEDS ORDERED: SPIRONOLACTONE 25 MG TAB PO SCH (09:00)
--- NOTE | 2019-09-13 10:44 | P.HPIM ---
History of Present Illness 18-year-old pleasant gentleman came to follow which appears to be mechanical fall he denies any lightheadedness or a syncopal episode. 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 Patient appears to have been excessively diuresed. Patient denied any fever chills there are no fractures. Apparently he did state that he is dizzy episodes in ER but he denied any such episodes to me as per the daughter patient's heart rate was low in the 40s recently and patient is not on any beta marce. Patient has persistent A. fib on Eliquis patient does have very low heart rate because of A. fib I can't really say patient has any heart block with cardiology was consulted patient is minimally elevated troponin doesn't have any chest pain. Review of Systems REVIEW OF SYSTEMS: CONSTITUTIONAL: No fever, no malaise, no fatigue. HEENT: No recent visual problems or hearing problems. Denied any sore throat. CARDIOVASCULAR: No chest pain, orthopnea, PND, no palpitations, no syncope. PULMONARY: No shortness of breath, no cough, no hemoptysis. GASTROINTESTINAL: No diarrhea, no nausea, no vomiting, no abdominal pain. NEUROLOGICAL: No headaches, no weakness, no numbness. HEMATOLOGICAL: Denies any bleeding or petechiae. GENITOURINARY: Denies any burning micturition, frequency, or urgency. MUSCULOSKELETAL/RHEUMATOLOGICAL: Denies any joint pain, swelling, or any muscle pain. ENDOCRINE: Denies any polyuria or polydipsia. The rest of the 14-point review of systems is negative. Past Medical History Past Medical History: Atrial Fibrillation, Chest Pain / Angina, Heart Failure, Eye Disorder, Hearing Disorder / Deafness, Liver Disease, Myocardial Infarction ([place]), Osteoarthritis (OA), Syncope, Thyroid Disorder Additional Past Medical History / Comment(s): Self catheterization , LEAKY HEART VALVES, sinus drainage. Had Rt eye surg 06/01/19, "membrane not sealing completely." Last Myocardial Infarction Date:: 02/2018 History of Any Multi-Drug Resistant Organisms: None Reported Past Surgical History: Heart Catheterization, Hernia Repair, Orthopedic Surgery Additional Past Surgical History / Comment(s): left knee replacement, back surgery, prostate surgery. RT Eye Keratoplasty. 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 Past Anesthesia/Blood Transfusion Reactions: No Reported Reaction Past Psychological History: No Psychological Hx Reported Smoking Status: Never smoker Past Alcohol Use History: None Reported Past Drug Use History: None Reported - Past Family History Father Family Medical History: Cancer Additional Family Medical History / Comment(s): pancreas/liver cancer Daughter(s) Family Medical History: Cancer Additional Family Medical History / Comment(s): perineal CA Brca1 gene Mother Family Medical History: No Reported History Medications and Allergies Home Medications Medication Instructions Recorded Confirmed Type Furosemide [Lasix] 60 mg PO BID@0900,1600 02/07/19 09/12/19 History Atorvastatin [Lipitor] 40 mg PO DAILY 05/30/19 09/12/19 History Midodrine HCl [ProAmantine] 2.5 mg PO BID 05/30/19 09/12/19 History Apixaban [Eliquis] 2.5 mg PO DAILY 06/02/19 09/12/19 History Levothyroxine Sodium [Synthroid] 175 mcg PO DAILY 06/02/19 09/12/19 History Spironolactone [Aldactone] 25 mg PO BID@0900,1600 06/02/19 09/12/19 History Prednisolone Acetate/Pf 1 drop RIGHT EYE QID 09/12/19 09/12/19 History [Prednisolone Acet 1% Eye Drop] Allergies Allergy/AdvReac Type Severity Reaction Status Date / Time No Known Allergies Allergy Verified 09/12/19 16:14 Physical Exam Vitals: Vital Signs Temp Pulse Pulse Resp BP BP Pulse Ox 09/13/19 08:00 59 L 18 88/53 95 09/13/19 03:29 98.2 F 47 L 18 97/58 96 09/12/19 23:53 60 18 09/12/19 23:51 98.5 F 60 18 94/51 97 09/12/19 20:00 97.6 F 73 18 108/73 97 09/12/19 17:09 72 18 99/63 98 09/12/19 13:30 97.2 F L 68 20 101/60 95 Intake and Output 09/12/19 09/13/19 09/13/19 22:59 06:59 14:59 Output Total 550 300 250 Balance -550 -300 -250 Output: Urine 550 300 250 Other: Voiding Method Self-Catheterization Self-Catheterization Self-Catheterization # Voids 1 1 1 # Bowel Movements 1 Weight 71.758 kg 69.1 kg PHYSICAL EXAMINATION: GENERAL: The patient is alert and oriented x3, not in any acute distress. Well developed, well nourished. HEENT: Pupils are round and equally reacting to light. EOMI. No scleral icterus. No conjunctival pallor. Normocephalic, atraumatic. No pharyngeal erythema. No thyromegaly. CARDIOVASCULAR: S1 and S2 present. No murmurs, rubs, or gallops. PULMONARY: Chest is clear to auscultation, no wheezing or crackles. ABDOMEN: His abdomen is distended does have some fluid and ascites no rebound or rigidity no tenderness. MUSCULOSKELETAL: No joint swelling or deformity. EXTREMITIES: No cyanosis, clubbing, or pedal edema. NEUROLOGICAL: Gross neurological examination did not reveal any focal deficits. SKIN: No rashes. Results CBC & Chem 7: 09/12/19 14:06 09/13/19 05:59 Labs: Abnormal Lab Results - Last 24 Hours (Table) 09/12/19 09/12/19 09/12/19 Range/Units 14:06 14:06 14:06 RBC 4.18 L (4.30-5.90) m/uL Plt Count 134 L (150-450) k/uL Lymphocytes # 0.4 L (1.0-4.8) k/uL INR 1.2 H (<1.2) Sodium 125 L (137-145) mmol/L Chloride 93 L (98-107) mmol/L Carbon Dioxide 20 L (22-30) mmol/L BUN 99 H (9-20) mg/dL Glucose 102 H (74-99) mg/dL Magnesium 2.5 H (1.6-2.3) mg/dL Total Bilirubin 2.3 H (0.2-1.3) mg/dL AST 73 H (17-59) U/L Alkaline Phosphatase 275 H (38-126) U/L Troponin I (0.000-0.034) ng/mL HDL Cholesterol (40-60) mg/dL 09/12/19 09/12/19 09/13/19 Range/Units 14:06 19:56 02:06 RBC (4.30-5.90) m/uL Plt Count (150-450) k/uL Lymphocytes # (1.0-4.8) k/uL INR (<1.2) Sodium (137-145) mmol/L Chloride (98-107) mmol/L Carbon Dioxide (22-30) mmol/L BUN (9-20) mg/dL Glucose (74-99) mg/dL Magnesium (1.6-2.3) mg/dL Total Bilirubin (0.2-1.3) mg/dL AST (17-59) U/L Alkaline Phosphatase (38-126) U/L Troponin I 0.281 H* 0.283 H* 0.280 H* (0.000-0.034) ng/mL HDL Cholesterol (40-60) mg/dL 09/13/19 Range/Units 05:59 RBC (4.30-5.90) m/uL Plt Count (150-450) k/uL Lymphocytes # (1.0-4.8) k/uL INR (<1.2) Sodium 124 L (137-145) mmol/L Chloride 94 L (98-107) mmol/L Carbon Dioxide 19 L (22-30) mmol/L BUN 87 H (9-20) mg/dL Glucose (74-99) mg/dL Magnesium (1.6-2.3) mg/dL Total Bilirubin (0.2-1.3) mg/dL AST (17-59) U/L Alkaline Phosphatase (38-126) U/L Troponin I (0.000-0.034) ng/mL HDL Cholesterol 69 H (40-60) mg/dL Thrombosis Risk Factor Assmnt - Choose All That Apply Any of the Below Risk Factors Present?: Yes Each Factor Represents 1 point: Swollen legs (current) Other Risk Factors: Yes Each Risk Factor Represents 3 Points: Age 75 years or older Other congenital or acquired thrombophilia - If yes, enter type in comment: No Thrombosis Risk Factor Assessment Total Risk Factor Score: 4 Thrombosis Risk Factor Assessment Level: Moderate Risk Assessment and Plan Plan: -Severe hyponatremia appears to be hypovolemic hyponatremia from excessive diuretic therapy patient will be started on IV fluids will obtain urine and serum osmolality, urine random sodium urine random creatinine along with TSH. -Bradycardia: Cardiology will evaluate the patient patient does have A. fib patient is in persistent A. fib not on any rate control medications at this time Continue with anticoagulation which will be temporally held for paracentesis -Idiopathic cirrhosis: Patient doesn't have much of fluid but the probably consider cirrhosis is expected to get better with IV fluids probably will need fluid ascitic tap tomorrow. 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 fib patient is presently bradycardic
--- NOTE | 2019-09-13 11:53 | P.CRDCN ---
History of Present Illness Consult date: 09/13/19 Requesting physician: Oleg E Buddy Reason for Consult (text): Bradycardia Chief complaint: Fall History of present illness: This is a pleasant 89-year-old gentleman who follows regularly with Dr. Bucio in the office. He has history of persistent atrial fibrillation, chronic diastolic congestive heart failure, liver disease, hypothyroidism, he is a nonsmoker, history of hyperlipidemia, history of prior paracentesis. Most recent cardiac catheterization was performed in February 2018 which revealed a 40-50% lesion in the proximal LAD, 50-60% distal LAD stenosis, RCA and circumflex were free of any stenosis. The most recent echocardiogram with Doppler study was performed in January 2019 which revealed an ejection fraction of 55-60%, moderate mitral regurgitation. Patient presented to the hospital on this occasion after experiencing a fall at home. The patient states that he was out in his garage, he bent down to pick something up and upon standing up fell completely backwards. He denies any dizziness or lightheadedness, no palpitations. He is unsure why he fell, he is not sure if he was just weak, and he does not think that he passed out. According to the patient he has had multiple falls inside the house, with no evidence of any trauma, this was quite some time ago however. He denies thinking that he ever had an actual syncopal episode but of this he is not sure. Upon taking the history from the patient this morning, he denies having any recent chest discomfort or difficulty in breathing but he states that he's been feeling very tired and weak over the past couple of months or so. He also states that he has noticed blood in his stool this morning. His home medications included Aldactone, eyedrops, midodrine, Synthroid, Lasix, Lipitor, and Eliquis. CAT scan of the head performed on arrival here did not reveal any acute process. CAT scan of the spine did not reveal evidence for acute fracture or cervical spine. Chest x-ray shows chronic findings with no acute cardiopulmonary process. No acute fracture of the left elbow. He does have a laceration noted there. EKG shows atrial fibrillation with slow ventricular response. Blood pressure 88/50 with a heart rate in the 40s. 95% on room air. White blood cell count 6.1, hemoglobin 13.5, platelet count 134. Sodium on admission 125, 124 this morning. Potassium 4.6, BUN 99 on admission with a creatinine of 1.1, 87 and 1.0 this morning. Magnesium 2.5, total bilirubin 2.3, AST 73, ALT 47, alk phos 275, troponins 0.2, 0.2, 0.2. BNP level 7270. TSH 4.1. Past Medical History Past Medical History: Atrial Fibrillation, Chest Pain / Angina, Heart Failure, Eye Disorder, Hearing Disorder / Deafness, Liver Disease, Myocardial Infarction (NM), Osteoarthritis (OA), Syncope, Thyroid Disorder Additional Past Medical History / Comment(s): Self catheterization , LEAKY HEART VALVES, sinus drainage. Had Rt eye surg 06/01/19, "membrane not sealing completely." Last Myocardial Infarction Date:: 02/2018 History of Any Multi-Drug Resistant Organisms: None Reported Past Surgical History: Heart Catheterization, Hernia Repair, Orthopedic Surgery Additional Past Surgical History / Comment(s): left knee replacement, back fregoso rgery, prostate surgery. RT Eye Keratoplasty. 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 Past Anesthesia/Blood Transfusion Reactions: No Reported Reaction Past Psychological History: No Psychological Hx Reported Smoking Status: Never smoker Past Alcohol Use History: None Reported Past Drug Use History: None Reported - Past Family History Father Family Medical History: Cancer Additional Family Medical History / Comment(s): pancreas/liver cancer Daughter(s) Family Medical History: Cancer Additional Family Medical History / Comment(s): perineal CA Brca1 gene Mother Family Medical History: No Reported History Medications and Allergies Home Medications Medication Instructions Recorded Confirmed Type Furosemide [Lasix] 60 mg PO BID@0900,1600 02/07/19 09/12/19 History Atorvastatin [Lipitor] 40 mg PO DAILY 05/30/19 09/12/19 History Midodrine HCl [ProAmantine] 2.5 mg PO BID 05/30/19 09/12/19 History Apixaban [Eliquis] 2.5 mg PO DAILY 06/02/19 09/12/19 History Levothyroxine Sodium [Synthroid] 175 mcg PO DAILY 06/02/19 09/12/19 History Spironolactone [Aldactone] 25 mg PO BID@0900,1600 06/02/19 09/12/19 History Prednisolone Acetate/Pf 1 drop RIGHT EYE QID 09/12/19 09/12/19 History [Prednisolone Acet 1% Eye Drop] Allergies Allergy/AdvReac Type Severity Reaction Status Date / Time No Known Allergies Allergy Verified 09/12/19 16:14 Physical Exam Vitals: Vital Signs Temp Pulse Pulse Resp BP BP Pulse Ox 09/13/19 08:00 59 L 18 88/53 95 09/13/19 03:29 98.2 F 47 L 18 97/58 96 09/12/19 23:53 60 18 09/12/19 23:51 98.5 F 60 18 94/51 97 09/12/19 20:00 97.6 F 73 18 108/73 97 09/12/19 17:09 72 18 99/63 98 09/12/19 13:30 97.2 F L 68 20 101/60 95 Intake and Output 09/12/19 09/13/19 09/13/19 22:59 06:59 14:59 Output Total 550 300 250 Balance -550 -300 -250 Output: Urine 550 300 250 Other: Voiding Method Self-Catheterization Self-Catheterization Self-Catheterization # Voids 1 1 1 # Bowel Movements 1 Weight 71.758 kg 69.1 kg GENERAL: This is a 89-year-old male in no apparent distress at the time of my examination. HEENT: Head is atraumatic, normocephalic. Pupils are equal, round. Sclerae anicteric. Conjunctivae are clear. Mucous membranes of the mouth are moist. Neck is supple. There is mild jugular venous distention. No carotid bruit is heard. LUNGS: Clear to auscultation . No wheezes or rales. No chest wall tenderness is noted on palpation or with deep breathing. HEART: Irregular rate and rhythm with systolic murmur at the left sternal border, no rubs or gallops. S1 and S2 heard. EXTREMITIES: No lower extremity edema, improved from previous exam and no calf tenderness noted. Laceration noted to the left elbow. Results 09/12/19 14:06 09/13/19 05:59 Cardiac Enzymes 09/12/19 09/12/19 09/12/19 Range/Units 14:06 14:06 19:56 AST 73 H (17-59) U/L Troponin I 0.281 H* 0.283 H* (0.000-0.034) ng/mL 09/13/19 Range/Units 02:06 AST (17-59) U/L Troponin I 0.280 H* (0.000-0.034) ng/mL Coagulation 09/12/19 Range/Units 14:06 PT 11.8 (9.0-12.0) sec APTT 25.8 (22.0-30.0) sec Lipids 09/13/19 Range/Units 05:59 Triglycerides 42 (<150) mg/dL Cholesterol 99 (<200) mg/dL HDL Cholesterol 69 H (40-60) mg/dL CBC 09/12/19 Range/Units 14:06 WBC 6.1 (3.8-10.6) k/uL RBC 4.18 L (4.30-5.90) m/uL Hgb 13.5 (13.0-17.5) gm/dL Hct 40.2 (39.0-53.0) % Plt Count 134 L (150-450) k/uL Comprehensive Metabolic Panel 09/12/19 09/13/19 Range/Units 14:06 05:59 Sodium 125 L 124 L (137-145) mmol/L Potassium 4.8 4.6 (3.5-5.1) mmol/L Chloride 93 L 94 L (98-107) mmol/L Carbon Dioxide 20 L 19 L (22-30) mmol/L BUN 99 H 87 H (9-20) mg/dL Creatinine 1.12 1.01 (0.66-1.25) mg/dL Glucose 102 H 99 (74-99) mg/dL Calcium 8.6 8.6 (8.4-10.2) mg/dL AST 73 H (17-59) U/L ALT 47 (4-49) U/L Alkaline Phosphatase 275 H (38-126) U/L Total Protein 6.8 (6.3-8.2) g/dL Albumin 3.8 (3.5-5.0) g/dL Current Medications Generic Name Dose Route Start Last Admin Trade Name Freq PRN Reason Stop Dose Admin Apixaban 2.5 mg 09/13/19 19:14 Eliquis PO DAILY [facility] Aspirin 325 mg 09/13/19 09:00 09/13/19 08:36 Aspirin PO 325 mg DAILY SHAINA Administration Atorvastatin Calcium 40 mg 09/13/19 09:00 09/13/19 08:36 Lipitor PO 40 mg DAILY SHAINA Administration Sodium Chloride 1,000 mls @ 75 mls/hr 09/13/19 10:00 Saline 0.9% IV .[id number] SHAINA Levothyroxine Sodium 100 mcg 09/13/19 06:30 09/13/19 05:45 Synthroid PO 100 mcg DAILY@0630 SHAINA Administration Levothyroxine Sodium 75 mcg 09/13/19 06:30 09/13/19 05:45 Synthroid PO 75 mcg DAILY@0630 SHAINA Administration Midodrine 2.5 mg 09/12/19 21:00 09/13/19 08:36 Proamatine PO 2.5 mg BID SHAINA Administration Nitroglycerin 0.4 mg 09/12/19 16:07 Nitrostat SUBLINGUAL Q5M PRN Chest Pain Nitroglycerin 1 inch 09/12/19 18:00 09/13/19 05:00 Nitro-Bid Oint TOPICAL Not Given Q6HR SHAINA Prednisolone Acetate 1 drops 09/12/19 22:00 09/13/19 08:35 Pred Forte 1% RIGHT EYE 1 drops QID SHAINA Administration Intake and Output 09/12/19 09/13/19 09/13/19 22:59 06:59 14:59 Output Total 550 300 250 Balance -550 -300 -250 Output: Urine 550 300 250 Other: Voiding Method Self-Catheterization Self-Catheterization Self-Catheterization # Voids 1 1 1 # Bowel Movements 1 Weight 71.758 kg 69.1 kg 09/12/19 14:06 09/13/19 05:59 EKG Interpretations (text) EKG shows atrial fibrillation with a slow ventricular response Assessment and Plan Plan: Assessment and plan #1 fall with no clear-cut evidence of syncope. 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 Cath in 2018 revealed a 40-50% proximal LAD lesion and a 50-60 distal LAD #8 hypertension #9 mild abnormality in troponin with no significant rise and fall pattern, not suggestive of acute coronary syndrome #10 hyponatremia Plan We will repeat an echocardiogram with Doppler study. Continue to monitor the patient for any significant pauses. If patient is noted to have significant pauses he may at some point require pacemaker implantation. We will also monitor orthostatic heart rate and blood pressure every shift. DNP note has been reviewed, I agree with a documented findings and plan of care. Patient was seen and examined.
--- NOTE | 2019-09-13 13:09 | US ---
EXAMINATION TYPE: US abdomen limited DATE OF EXAM: 09/13/2019 COMPARISON: NONE CLINICAL HISTORY: assess for fluid pocket please. abd DISTENTION Moderate amount of ascites Limited abdomen ultrasound was performed. IMPRESSION: Moderate ascites.
--- NOTE | 2019-09-13 14:26 | CONS ---
CONSULTATION REASON FOR CONSULTATION: Hyponatremia. HISTORY OF PRESENT ILLNESS: The patient is an 89-year-old male who was admitted to the hospital with a history of fall. He stated that he tried to get up from sitting position and felt dizzy and could not sustain himself and eventually fell. Blood pressure has been on the lower side. The patient is maintained on diuretics at home. I do see midodrine on his med list as well. His sodium was 125 yesterday, today it is at 124. Normal saline has just been started. The patient denies any previous history of hyponatremia. Previous sodium was 135 on 02/04/2019. No history of use of any new medications. No diarrhea, nausea, or vomiting. PAST MEDICAL HISTORY: Atrial fibrillation, CHF, hearing loss, chronic liver disease, [place], osteoarthritis, syncope, hypothyroidism. PAST SURGICAL HISTORY: Cardiac catheterization, hernia repair, left knee arthroplasty, back surgery, prostatic surgery, right eye keratoplasty, corneal transplant. SOCIAL HISTORY: Negative for smoking, drug abuse, or alcohol abuse. MEDICATIONS: Medications at home prior to admission included Lasix, Lipitor, midodrine, Eliquis, Synthroid, Aldactone. ALLERGIES: None. REVIEW OF SYSTEMS: As per HPI. Other systems negative. PHYSICAL EXAMINATION: On examination, the patient is comfortable, awake, not in any acute distress. Blood pressure was 97/58, heart rate 47 per minute, he is afebrile. Examination of the heard, S1 and S2. Examination of the lungs, bilateral breath sounds are heard. Abdomen is soft and nontender. Examination of the lower extremities shows no evidence of edema. 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 LABS: Sodium 124, potassium 4.6, chloride 94, CO2 is 19, BUN 87, creatinine 1.01. ASSESSMENT: 1. Hypovolemic hyponatremia. Agree with normal saline. Repeat sodium at about 2:00 this afternoon. Urine osmolality has already been ordered. I will check a TSH as patient is bradycardic. 2. Chronic kidney disease secondary to nephrosclerosis, NKF stage 3. Previous creatinine has been about 1.0 to 0.9 mg/dL. 3. Atrial fibrillation with controlled ventricular response. 4. Elevated troponins, unlikely to be an acute cardiac event. 5. Disproportionately elevated BUN secondary to volume depletion. PLAN: Continue with normal saline. Repeat sodium this evening. Followup on urine osmolality. Check TSH level. Thank you for this consultation. We will continue to follow the patient with you during his hospitalization. VIKI / AAMIR: [id number] /
[2019-09-13] MEDS: APIXABAN 2.5 MG TABLET PO SCH (14:45)
[2019-09-13] MEDS: SODIUM CHLORIDE 0.9% 1,000 ML IV SCH ×2 (19:55→20:37)
[2019-09-14] MEDS: NITROGLYCERIN OINT 1 INCH/GM PACKET TOPICAL SCH ×4 (05:18→23:45)
[2019-09-14] MEDS: LEVOTHYROXINE 75 MCG TAB PO SCH (06:53)
[2019-09-14] MEDS: LEVOTHYROXINE 100 MCG TAB PO SCH (06:53)
[2019-09-14 06:55] LABS: Calcium 8.3 mg/dL (8.4-10.2); Potassium 4.7 mmol/L (3.5-5.1)
[2019-09-14] MEDS: prednisoLONE ACETATE 1% OPHTH DROPS 5 ML BTL RIGHT EYE SCH ×4 (07:48→22:38)
[2019-09-14] MEDS: MIDODRINE 5 MG TAB PO SCH ×2 (07:49→20:39)
[2019-09-14] MEDS: ATORVASTATIN 40 MG TAB PO SCH (07:49)
[2019-09-14] MEDS: ASPIRIN 325 MG TAB PO SCH (07:57)
--- NOTE | 2019-09-14 10:21 | P.PN ---
Subjective Patient is admitted for hypovolemic hyponatremia and found to have significant sinus pauses cardiology is following the patient patient is supposed been IV fluids it appears like IV fluids were discontinued last night will be started back on IV fluids will instruct the nursing staff not to stop the IV fluids patient BNP is elevated but patient is not in heart failure patient is actually hypovolemic. Patient feels better than yesterday serum sodium went up to 127 Constitutional: Denied any fatigue denied any fever. Cardio vascular: denied any chest pain, palpitations Gastrointestinal denied any nausea vomiting Pulmonary: Denied any shortness of breath cough Neurologic denied any new focal deficits All inpatient medications were reviewed and appropriate changes in these medications as dictated in the interval history and assessment and plan. Objective - Vital Signs Vital signs: Vital Signs Temp 97.9 F 09/14/19 07:57 Pulse 45 L 09/14/19 08:00 Resp 18 09/14/19 07:57 BP 103/51 09/14/19 07:57 Pulse Ox 98 09/14/19 07:57 Intake & Output 09/13/19 09/14/19 09/14/19 18:59 06:59 18:59 Intake Total 720 Output Total 250 500 Balance 470 -500 Weight 75 kg Intake: Oral 720 Output: Urine 250 500 Other: Voiding Method Self-Catheterization Self-Catheterization Self-Catheterization # Voids 1 1 # Bowel Movements 1 1 - Exam PHYSICAL EXAMINATION: GENERAL: The patient is alert and oriented x3, not in any acute distress. Well developed, well nourished. HEENT: Pupils are round and equally reacting to light. EOMI. No scleral icterus. No conjunctival pallor. Normocephalic, atraumatic. No pharyngeal erythema. No thyromegaly. CARDIOVASCULAR: S1 and S2 present. No murmurs, rubs, or gallops. PULMONARY: Chest is clear to auscultation, no wheezing or crackles. ABDOMEN: His abdomen is distended does have some fluid and ascites no rebound or rigidity no tenderness. MUSCULOSKELETAL: No joint swelling or deformity. EXTREMITIES: No cyanosis, clubbing, or pedal edema. NEUROLOGICAL: Gross neurological examination did not reveal any focal deficits. SKIN: No rashes. - Labs CBC & Chem 7: 09/12/19 14:06 09/14/19 06:29 Labs: Abnormal Lab Results - Last 24 Hours (Table) 09/13/19 09/14/19 Range/Units 14:27 06:29 Sodium 126 L 127 L (137-145) mmol/L Carbon Dioxide 17 L (22-30) mmol/L BUN 69 H (9-20) mg/dL Glucose 104 H (74-99) mg/dL Calcium 8.3 L (8.4-10.2) mg/dL Assessment and Plan Plan: -Severe hyponatremia appears to be hypovolemic hyponatremia from excessive diuretic therapy patient will be continued on IV fluids will obtained urine and serum osmolality, urine random sodium urine random creatinine along with TSH. These studies are not revealing for mitral because of her Lasix she was rece iving. -Bradycardia: Cardiology will evaluate the patient patient does have A. fib patient is in persistent A. 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 fib patient is presently bradycardic
--- NOTE | 2019-09-14 11:52 | PN ---
PROGRESS NOTE Patient is seen for followup for hyponatremia which is hypovolemic currently improved with normal saline. The patient states he is feeling better. He is not as dizzy as on admission. Blood pressure slightly improved. It was 103 this morning, however, it was still at 80/49 yesterday. PHYSICAL EXAMINATION: On examination this morning, heart rate 45 per minute, blood pressure 103/51. Patient is afebrile. EXAMINATION OF THE HEART: S1 and S2. EXAMINATION OF THE LUNGS: Bilateral breath sounds are heard. ABDOMEN: Soft, nontender. Examination of lower extremities shows no evidence of edema. 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 LABS: Labs show sodium 127, potassium 4.7, chloride 101, CO2 17, BUN 69, creatinine 0.93. ASSESSMENT: 1. Hypovolemic hyponatremia currently improved with IV saline, which we will continue for now. 2. Mild metabolic acidosis, most likely related to the IV fluids, I will change to Ringer lactate. 3. Borderline elevated troponins, currently asymptomatic. Cardiology is on the case. PLAN: Change IV fluids to Ringer lactate. Repeat labs in a.m. MMODL / IJN: [id number] /
[2019-09-14] MEDS: LACTATED RINGERS 1,000 ML IV SCH (12:23)
--- NOTE | 2019-09-14 16:04 | P.PN ---
Subjective Progress Note Date: 09/14/19 This is a pleasant 89-year-old gentleman who follows regularly with Dr. Bucio in the office. He has history of persistent atrial fibrillation, chronic diastolic congestive heart failure, liver disease, hypothyroidism, he is a nonsmoker, history of hyperlipidemia, history of prior paracentesis. Most recent cardiac catheterization was performed in February 2018 which revealed a 40-50% lesion in the proximal LAD, 50-60% distal LAD stenosis, RCA and circumflex were free of any stenosis. The most recent echocardiogram with Doppler study was performed in January 2019 which revealed an ejection fraction of 55-60%, moderate mitral regurgitation. Patient presented to the hospital on this occasion after experiencing a fall at home. The patient states that he was out in his garage, he bent down to pick something up and upon standing up fell completely backwards. He denies any dizziness or lightheadedness, no palpitations. He is unsure why he fell, he is not sure if he was just weak, and he does not think that he passed out. According to the patient he has had multiple falls inside the house, with no evidence of any trauma, this was quite some time ago however. He denies thinking that he ever had an actual syncopal episode but of this he is not sure. Upon taking the history from the patient this morning, he denies having any recent chest discomfort or difficulty in breathing but he states that he's been feeling very tired and weak over the past couple of months or so. He also states that he has noticed blood in his stool this morning. His home medications included Filomena ctone, eyedrops, midodrine, Synthroid, Lasix, Lipitor, and Eliquis. CAT scan of the head performed on arrival here did not reveal any acute process. CAT scan of the spine did not reveal evidence for acute fracture or cervical spine. Chest x-ray shows chronic findings with no acute cardiopulmonary process. No acute fracture of the left elbow. He does have a laceration noted there. EKG shows atrial fibrillation with slow ventricular response. Blood pressure 88/50 with a heart rate in the 40s. 95% on room air. White blood cell count 6.1, hemoglobin 13.5, platelet count 134. Sodium on admission 125, 124 this morning. Potassium 4.6, BUN 99 on admission with a creatinine of 1.1, 87 and 1.0 this morning. Magnesium 2.5, total bilirubin 2.3, AST 73, ALT 47, alk phos 275, troponins 0.2, 0.2, 0.2. BNP level 7270. TSH 4.1. 09/14/2019 Patient was seen an sodium improving, 127, potassium 4.7, BUN 69, creatinine 0.9. d examined this morning, blood pressure runs around 100 systolic, orthostatics were performed which did not reveal a significant drop on standing. Heart rate is fluctuating anywhere from 45 up to the 60s. He denies any dizziness or lightheadedness. Objective - Vital Signs Vital signs: Vital Signs Temp 98 F 09/14/19 11:37 Pulse 44 L 09/14/19 15:09 Resp 18 09/14/19 15:09 BP 95/58 09/14/19 15:09 Pulse Ox 96 09/14/19 15:09 Intake & Output 09/13/19 09/14/19 09/14/19 18:59 06:59 18:59 Intake Total 720 Output Total 250 500 Balance 470 -500 Weight 75 kg Intake: Oral 720 Output: Urine 250 500 Other: Voiding Method Self-Catheterization Self-Catheterization Self-Catheterization # Voids 1 1 # Bowel Movements 1 1 - Exam GENERAL: This is a 89-year-old male in no apparent distress at the time of my examination. HEENT: Head is atraumatic, normocephalic. Pupils are equal, round. Sclerae anicteric. Conjunctivae are clear. Mucous membranes of the mouth are moist. Neck is supple. There is mild jugular venous distention. No carotid bruit is heard. LUNGS: Clear to auscultation . No wheezes or rales. No chest wall tenderness is noted on palpation or with deep breathing. HEART: Irregular rate and rhythm with systolic murmur at the left sternal border, no rubs or gallops. S1 and S2 heard. EXTREMITIES: No lower extremity edema, improved from previous exam and no calf tenderness noted. Laceration noted to the left elbow. - Labs CBC & Chem 7: 09/12/19 14:06 09/14/19 06:29 Labs: Abnormal Lab Results - Last 24 Hours (Table) 09/14/19 Range/Units 06:29 Sodium 127 L (137-145) mmol/L Carbon Dioxide 17 L (22-30) mmol/L BUN 69 H (9-20) mg/dL Glucose 104 H (74-99) mg/dL Calcium 8.3 L (8.4-10.2) mg/dL Assessment and Plan Plan: Assessment and plan #1 fall with no clear-cut evidence of syncope. 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 Cath in 2018 revealed a 40-50% proximal LAD lesion and a 50-60 distal LAD #8 hypertension #9 mild abnormality in troponin with no significant rise and fall pattern, not suggestive of acute coronary syndrome #10 hyponatremia Plan Repeat echocardiogram with Doppler study remains pending. Heart rate fluctuating anywhere from the 40s to the 60s. Orthostatics did not reveal significant drop although we patient is on midodrine. We will review the echo tomorrow. On discharge we recommend a 30 day event monitor. DNP note has been reviewed, I agree with a documented findings and plan of care. Patient was seen and examined.
[2019-09-14] MEDS: SODIUM BICARBONATE TAB 650 MG TAB PO SCH (20:39)
[2019-09-15] MEDS: LACTATED RINGERS 1,000 ML IV SCH ×2 (00:07→18:00)
[2019-09-15] MEDS: NITROGLYCERIN OINT 1 INCH/GM PACKET TOPICAL SCH ×3 (05:51→22:32)
[2019-09-15] MEDS: LEVOTHYROXINE 100 MCG TAB PO SCH (05:57)
[2019-09-15] MEDS: LEVOTHYROXINE 75 MCG TAB PO SCH (05:57)
[2019-09-15 06:41] LABS: Calcium 8.4 mg/dL (8.4-10.2); Potassium 5.1 mmol/L (3.5-5.1)
--- NOTE | 2019-09-15 08:16 | US ---
EXAMINATION TYPE: US paracentesis abd w/image DATE OF EXAM: 09/14/2019 COMPARISON: NONE HISTORY: Ascites. PROCEDURE: Maximal barrier technique was utilized. The skin overlying a suitable pocket of fluid was localized with ultrasound and the overlying skin was prepped and draped. Ultrasound was utilized with sterile technique. Lidocaine was used for local anesthesia and a skin nathan made with a scalpel. Catheter was advanced under direct ultrasound guidance into a suitable pocket of fluid and approximately 3.3 liter s of serous sanguinous fluid were removed. Catheter was withdrawn and hemostasis achieved. There is no immediate complication; the patient is discharged in stable condition. IMPRESSION: STATUS POST ULTRASOUND GUIDED PARACENTESIS FOR PALLIATION OF ASCITES. THIS PROCEDURE WA S PERFORMED BY THE UNDERSIGNED.
[2019-09-15] MEDS: SODIUM BICARBONATE TAB 650 MG TAB PO SCH ×2 (09:29→20:33)
[2019-09-15] MEDS: ASPIRIN 325 MG TAB PO SCH (09:29)
[2019-09-15] MEDS: MIDODRINE 5 MG TAB PO SCH ×2 (09:29→20:32)
[2019-09-15] MEDS: APIXABAN 2.5 MG TABLET PO SCH (09:29)
[2019-09-15] MEDS: ATORVASTATIN 40 MG TAB PO SCH (09:29)
--- NOTE | 2019-09-15 13:11 | P.PN ---
Subjective Progress Note Date: 09/15/19 Principal diagnosis: Patient is admitted for hypovolemic hyponatremia and found to have significant sinus pauses cardiology is following the patient patient is supposed been IV flu ids it appears like IV fluids were discontinued last night will be started back on IV fluids will instruct the nursing staff not to stop the IV fluids patient BNP is elevated but patient is not in heart failure patient is actually hypovolemic. Patient feels better than yesterday serum sodium went up to 127 Constitutional: Denied any fatigue denied any fever. Cardio vascular: denied any chest pain, palpitations Gastrointestinal denied any nausea vomiting Pulmonary: Denied any shortness of breath cough Neurologic denied any new focal deficits All inpatient medications were reviewed and appropriate changes in these medications as dictated in the interval history and assessment and plan. 09/15/2019 Patient is seen and evaluated in follow-up today currently sitting at the side of the bed in no acute distress. Patient's blood pressure was found to be 80 systolic although asymptomatic. Patient denies any feelings of dizziness, lightheadedness, chest pains, or feelings of passing out. Patient was found to have a stage II to 3 pressure ulcer on the buttocks during a shower today. Salma ent states that he's had this for quite some time and it doesn't bother him or cause any pain or discomfort at all. Patient states it is most likely due to the fact that he sits in the chair or in the bed most of the day and has for quite some time. Nursing staff is aware and will provide some local wound care. Patient had an ultrasound-guided paracentesis done removing approximately 3.3 L today and tolerated well. Patient states his last paracentesis was approximately one month ago. Patient states he feels much better status post paracentesis. No reports of chest pain, shortness of breath, or palpitations. Patient is afebrile. No reports of nausea or vomiting and patient has been to lerating diet. Objective - Vital Signs Vital signs: Vital Signs Temp 97.6 F 09/15/19 08:00 Pulse 44 L 09/15/19 08:00 Resp 18 09/15/19 08:00 BP 86/54 09/15/19 08:00 Pulse Ox 98 09/15/19 08:00 Intake & Output 09/14/19 09/15/19 09/15/19 18:59 06:59 18:59 Intake Total 240 Output Total 425 Balance -425 240 Weight 73.3 kg Intake: Oral 240 Output: Urine 425 Other: Voiding Method Self-Catheterization Self-Catheterization Self-Catheterization # Voids 3 1 # Bowel Movements 1 1 1 - Exam GENERAL: The patient is alert and oriented x3, sitting up at the side of the bed, not in any acute distress. Well developed, well nourished. HEENT: Pupils are round and equally reacting to light. EOMI. No scleral icterus. No conjunctival pallor. Normocephalic, atraumatic. No pharyngeal erythema. No thyromegaly. CARDIOVASCULAR: S1 and S2 present. No murmurs, rubs, or gallops. PULMONARY: Chest is clear to auscultation, no wheezing or crackles. ABDOMEN: His abdomen is soft, nondistended, no tenderness noted on palpation. Paracentesis done today. MUSCULOSKELETAL: No joint swelling or deformity. EXTREMITIES: No cyanosis, clubbing, or pedal edema. NEUROLOGICAL: Gross neurological examination did not reveal any focal deficits. SKIN: No rashes. - Labs CBC & Chem 7: 09/12/19 14:06 09/15/19 05:57 Labs: Abnormal Lab Results - Last 24 Hours (Table) 09/15/19 Range/Units 05:57 Sodium 127 L (137-145) mmol/L Carbon Dioxide 20 L (22-30) mmol/L BUN 56 H (9-20) mg/dL Assessment and Plan Assessment: -Severe hyponatremia appears to be hypovolemic hyponatremia from excessive diuretic therapy. Diuretics have been on hold. Urine osmolality 498, urine random creatinine and sodium within normal limits. Sodium remains 127 will repeat a.m. labs. -Bradycardia: Cardiology will evaluate the patient patient does have A. fib patient is in persistent A. fib not on any rate control medications at this time. Patient remains on Eliquis and aspirin -Idiopathic cirrhosis: Patient underwent ultrasound-guided paracentesis with 3.3 L removed. 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 Encouraging oral intake -Mildly elevated troponins doesn't have any chest pain secondary to acute renal failure -Acute renal failure: Secondary to excessive diuretic therapy as mentioned -elevated liver enzymes mild elevation secondary to cirrhosis idiopathic in nature -Hypotension: Patient is currently on Midodrine and will continue at this time. Nephrology is following. -Persistent A. fib patient is presently bradycardic
--- NOTE | 2019-09-15 14:28 | P.PN ---
Subjective Progress Note Date: 09/15/19 This is a pleasant 89-year-old gentleman who follows regularly with Dr. Bucio in the office. He has history of persistent atrial fibrillation, chronic diastolic congestive heart failure, liver disease, hypothyroidism, he is a nonsmoker, history of hyperlipidemia, history of prior paracentesis. Most recent cardiac catheterization was performed in February 2018 which revealed a 40-50% lesion in the proximal LAD, 50-60% distal LAD stenosis, RCA and circumflex were free of any stenosis. The most recent echocardiogram with Doppler study was performed in January 2019 which revealed an ejection fraction of 55-60%, moderate mitral regurgitation. Patient presented to the hospital on this occasion after experiencing a fall at home. The patient states that he was out in his garage, he bent down to pick something up and upon standing up fell completely backwards. He denies any dizziness or lightheadedness, no palpitations. He is unsure why he fell, he is not sure if he was just weak, and he does not think that he passed out. According to the patient he has had multiple falls inside the house, with no evidence of any trauma, this was quite some time ago however. He denies thinking that he ever had an actual syncopal episode but of this he is not sure. Upon taking the history from the patient this morning, he denies having any recent chest discomfort or difficulty in breathing but he states that he's been feeling very tired and weak over the past couple of months or so. He also states that he has noticed blood in his stool this morning. His home medications included Filomena ctone, eyedrops, midodrine, Synthroid, Lasix, Lipitor, and Eliquis. CAT scan of the head performed on arrival here did not reveal any acute process. CAT scan of the spine did not reveal evidence for acute fracture or cervical spine. Chest x-ray shows chronic findings with no acute cardiopulmonary process. No acute fracture of the left elbow. He does have a laceration noted there. EKG shows atrial fibrillation with slow ventricular response. Blood pressure 88/50 with a heart rate in the 40s. 95% on room air. White blood cell count 6.1, hemoglobin 13.5, platelet count 134. Sodium on admission 125, 124 this morning. Potassium 4.6, BUN 99 on admission with a creatinine of 1.1, 87 and 1.0 this morning. Magnesium 2.5, total bilirubin 2.3, AST 73, ALT 47, alk phos 275, troponins 0.2, 0.2, 0.2. BNP level 7270. TSH 4.1. 09/14/2019 Patient was seen an sodium improving, 127, potassium 4.7, BUN 69, creatinine 0.9. d examined this morning, blood pressure runs around 100 systolic, orthostatics were performed which did not reveal a significant drop on standing. Heart rate is fluctuating anywhere from 45 up to the 60s. He denies any dizziness or lightheadedness. 09/15/2019 Patient was seen and examined today, heart rate maintaining today in the 70s. Status post paracentesis. Sodium 127, potassium 5.1, BUN 56, creatinine 0.9. Blood pressure 96/50, heart rate maintaining in the 70s today. Objective - Vital Signs Vital signs: Vital Signs Temp 97.6 F 09/15/19 08:00 Pulse 44 L 09/15/19 08:00 Resp 18 09/15/19 08:00 BP 86/54 09/15/19 08:00 Pulse Ox 98 09/15/19 08:00 Intake & Output 09/14/19 09/15/19 09/15/19 18:59 06:59 18:59 Intake Total 240 Output Total 425 Balance -425 240 Weight 73.3 kg Intake: Oral 240 Output: Urine 425 Other: Voiding Method Self-Catheterization Self-Catheterization Self-Catheterization # Voids 3 1 # Bowel Movements 1 1 1 - Exam GENERAL: This is a 89-year-old male in no apparent distress at the time of my examination. HEENT: Head is atraumatic, normocephalic. Pupils are equal, round. Sclerae anicteric. Conjunctivae are clear. Mucous membranes of the mouth are moist. Neck is supple. There is mild jugular venous distention. No carotid bruit is heard. LUNGS: Clear to auscultation . No wheezes or rales. No chest wall tenderness is noted on palpation or with deep breathing. HEART: Irregular rate and rhythm with systolic murmur at the left sternal border, no rubs or gallops. S1 and S2 heard. EXTREMITIES: No lower extremity edema, improved from previous exam and no calf tenderness noted. Laceration noted to the left elbow. - Labs CBC & Chem 7: 09/12/19 14:06 09/15/19 05:57 Labs: Abnormal Lab Results - Last 24 Hours (Table) 09/15/19 Range/Units 05:57 Sodium 127 L (137-145) mmol/L Carbon Dioxide 20 L (22-30) mmol/L BUN 56 H (9-20) mg/dL Assessment and Plan Plan: Assessment and plan #1 fall with no clear-cut evidence of syncope. 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 Cath in 2018 revealed a 40-50% proximal LAD lesion and a 50-60 distal LAD #8 hypertension #9 mild abnormality in troponin with no significant rise and fall pattern, not suggestive of acute coronary syndrome #10 hyponatremia Plan From cardiology's perspective, we'll continue this patient on his current medications. We will follow him along with you now on an as-needed basis only, please don't hesitate to call with any questions. Recommend patient have a 30 day event monitor on discharge. DNP note has been reviewed, I agree with a documented findings and plan of care. Patient was seen and examined.
[2019-09-15] MEDS: prednisoLONE ACETATE 1% OPHTH DROPS 5 ML BTL RIGHT EYE SCH ×2 (17:58→20:33)
[2019-09-15] MEDS: SODIUM CHLORIDE TAB 1 GM TAB PO SCH (20:33)
--- NOTE | 2019-09-15 22:47 | PN ---
PROGRESS NOTE Patient is seen for followup for hyponatremia which was hypovolemic. Patient was maintained on normal saline. His sodium came up from 124, but it has been staying at about 127 mEq/L. Patient's blood pressure remains on the lower side. I added sodium chloride tabs today. Serum cortisol was not low. PHYSICAL EXAMINATION: On examination, blood pressure this morning was 93/62, heart rate 50 per minute. Patient is afebrile. EXAMINATION OF THE HEART: S1 and S2. EXAMINATION OF LUNGS: Bilateral breath sounds are heard. ABDOMEN: Soft, non-tender. Examination of lower extremities shows no evidence of edema. PRENATAL GENETIC COUNSELOR exam is grossly intact. LABS: Sodium 127, potassium 5.1, chloride 98. CO2 is 20, BUN 56, serum creatinine 0.92. ASSESSMENT: 1. Hypovolemic hyponatremia, maintained on Ringer lactate. The fluid was changed from normal saline to Ringer lactate because of mild metabolic acidosis. I will add sodium chloride tabs, as patient's blood pressure remains low. 2. Hypotension, mostly hypovolemic. Rule out adrenal insufficiency. I do not see a cortisol level. I will reorder it. 3. Mild metabolic acidosis, maintained on sodium bicarb. PLAN: Continue with midodrine. Continue IV fluids. Add sodium chloride tabs 1 gram b.i.d. Check random cortisol level. Rule out adrenal insufficiency. Repeat labs in a.m. MMODL / IJN: [id number] /
[2019-09-16] MEDS: NITROGLYCERIN OINT 1 INCH/GM PACKET TOPICAL SCH ×4 (06:26→22:57)
[2019-09-16] MEDS: LACTATED RINGERS 1,000 ML IV SCH ×2 (06:29→22:42)
[2019-09-16] MEDS: LEVOTHYROXINE 75 MCG TAB PO SCH (06:29)
[2019-09-16] MEDS: LEVOTHYROXINE 100 MCG TAB PO SCH (06:29)
[2019-09-16 06:49] LABS: Calcium 8.3 mg/dL (8.4-10.2); Potassium 5.4 mmol/L (3.5-5.1)
[2019-09-16] MEDS: APIXABAN 2.5 MG TABLET PO SCH (09:28)
[2019-09-16] MEDS: ASPIRIN 325 MG TAB PO SCH (09:28)
[2019-09-16] MEDS: ATORVASTATIN 40 MG TAB PO SCH (09:29)
[2019-09-16] MEDS: MIDODRINE 5 MG TAB PO SCH ×3 (09:29→16:47)
[2019-09-16] MEDS: prednisoLONE ACETATE 1% OPHTH DROPS 5 ML BTL RIGHT EYE SCH ×2 (09:30→22:48)
[2019-09-16] MEDS: SODIUM BICARBONATE TAB 650 MG TAB PO SCH ×2 (09:30→22:42)
[2019-09-16] MEDS ORDERED: SODIUM CHLORIDE TAB 1 GM TAB PO STA (09:44)
[2019-09-16] MEDS: SODIUM CHLORIDE TAB 1 GM TAB PO SCH ×3 (10:04→22:48)
--- NOTE | 2019-09-16 14:38 | P.PN ---
Subjective Progress Note Date: 09/16/19 Principal diagnosis: Patient is admitted for hypovolemic hyponatremia and found to have significant sinus pauses cardiology is following the patient patient is supposed been IV flu ids it appears like IV fluids were discontinued last night will be started back on IV fluids will instruct the nursing staff not to stop the IV fluids patient BNP is elevated but patient is not in heart failure patient is actually hypovolemic. Patient feels better than yesterday serum sodium went up to 127 Constitutional: Denied any fatigue denied any fever. Cardio vascular: denied any chest pain, palpitations Gastrointestinal denied any nausea vomiting Pulmonary: Denied any shortness of breath cough Neurologic denied any new focal deficits All inpatient medications were reviewed and appropriate changes in these medications as dictated in the interval history and assessment and plan. 09/15/2019 Patient is seen and evaluated in follow-up today currently sitting at the side of the bed in no acute distress. Patient's blood pressure was found to be 80 systolic although asymptomatic. Patient denies any feelings of dizziness, lightheadedness, chest pains, or feelings of passing out. Patient was found to have a stage II to 3 pressure ulcer on the buttocks during a shower today. Salma ent states that he's had this for quite some time and it doesn't bother him or cause any pain or discomfort at all. Patient states it is most likely due to the fact that he sits in the chair or in the bed most of the day and has for quite some time. Nursing staff is aware and will provide some local wound care. Patient had an ultrasound-guided paracentesis done removing approximately 3.3 L today and tolerated well. Patient states his last paracentesis was approximately one month ago. Patient states he feels much better status post paracentesis. No reports of chest pain, shortness of breath, or palpitations. Patient is afebrile. No reports of nausea or vomiting and patient has been to lerating diet. 09/16/2019 Patient is seen and evaluated in follow-up today sitting up in bed in no acute distress. No acute overnight issues. Patient continues to be hypotensive and midodrine will be increased. Patient's sodium remains at 127 and sodium chloride tabs along with bicarb tablets have been added. Patient remains on lactated Ringer's at 75 ML per hour. Patient is asymptomatic of these low blood pressures and states "I always have low blood pressure". Nephrology is following. Will repeat chest x-ray in the morning and labs. Patient states he would really like to go home. Will continue to monitor closely with possibility of discharge tomorrow. Currently no reports of chest pain, shortness of breath, or palpitations. Patient denies any dizziness, lightheadedness, feelings of passing out. Patient afebrile. No reports of nausea or vomiting and patient is tolerating diet. Objective - Vital Signs Vital signs: Vital Signs Temp 97.5 F L 09/16/19 11:31 Pulse 68 09/16/19 11:31 Resp 16 09/16/19 11:31 BP 89/52 09/16/19 11:31 Pulse Ox 100 09/16/19 11:31 Intake & Output 09/15/19 09/16/19 09/16/19 18:59 06:59 18:59 Intake Total 1254 480 Output Total 750 Balance 1254 -750 480 Weight 75.5 kg Intake: Oral 1254 480 Output: Urine 750 Other: Voiding Method Self-Catheterization Self-Catheterization Self-Catheterization # Voids 1 1 # Bowel Movements 1 1 - Exam GENERAL: The patient is alert and oriented x3, sitting up in bed, not in any acute distress. Well developed, well nourished. HEENT: Pupils are round and equally reacting to light. EOMI. No scleral icterus. No conjunctival pallor. Normocephalic, atraumatic. No pharyngeal erythema. No thyromegaly. CARDIOVASCULAR: S1 and S2 present. No murmurs, rubs, or gallops. PULMONARY: Chest is clear to auscultation, no wheezing or crackles. ABDOMEN: His abdomen is soft, nondistended, no tenderness noted on palpation. MUSCULOSKELETAL: No joint swelling or deformity. EXTREMITIES: No cyanosis, clubbing, or pedal edema. NEUROLOGICAL: Gross neurological examination did not reveal any focal deficits. SKIN: No rashes. - Labs CBC & Chem 7: 09/12/19 14:06 09/16/19 06:23 Labs: Abnormal Lab Results - Last 24 Hours (Table) 09/16/19 Range/Units 06:23 Sodium 127 L (137-145) mmol/L Potassium 5.4 H (3.5-5.1) mmol/L Carbon Dioxide 20 L (22-30) mmol/L BUN 50 H (9-20) mg/dL Calcium 8.3 L (8.4-10.2) mg/dL Assessment and Plan Assessment: -Severe hyponatremia appears to be hypovolemic hyponatremia from excessive diuretic therapy. Diuretics have been on hold. Sodium remains 127. Nephrology following. Sodium chloride tabs along with sodium bicarb tabs have been added. Patient to continue on lactated Ringer's at 75 ML per hour. Will repeat labs. -Bradycardia: Cardiology will evaluate the patient patient does have A. fib patient is in persistent A. fib not on any rate control medications at this time. Patient remains on Eliquis and aspirin. Heart rate remains in the 60s and 70s -Idiopathic cirrhosis: Patient underwent ultrasound-guided paracentesis with 3.3 L removed yesterday. 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 Encouraging oral intake -Mildly elevated troponins doesn't have any chest pain secondary to acute renal failure -Acute renal failure: Secondary to excessive diuretic therapy as mentioned. Creatinine currently 0.87 -elevated liver enzymes mild elevation secondary to cirrhosis idiopathic in nature -Hypotension: Patient is currently on Midodrine and will increase at this time. Nephrology is following. -Persistent A. fib patient is maintained on Eliquis
--- NOTE | 2019-09-16 16:36 | PN ---
PROGRESS NOTE Patient is seen for followup for hyponatremia, which is mainly hypovolemic, initially improved with normal saline; however, serum sodium seems to be stuck at 127 mEq/L. Patient's blood pressure remains low. He is maintained on midodrine and he was also started on sodium chloride tabs yesterday. This morning I increased it to 2 grams twice a day. No significant symptoms except for weakness. PHYSICAL EXAMINATION: On examination, blood pressure was 89/52, heart rate 68 per minute. Patient is afebrile. EXAMINATION OF THE HEART: S1 and S2. EXAMINATION OF LUNGS: Bilateral breath sounds are heard. ABDOMEN: Soft, non-tender. Examination of lower extremities shows no evidence of edema. MISSILE AND MISSILE CHECKOUT TECHNICIAN exam is grossly intact. LABS: Labs show sodium 127, potassium 5.4, chloride 101, BUN 50, serum creatinine 0.87. ASSESSMENT: 1. Hyponatremia, mainly hypovolemic, initially improved with normal saline with serum sodium coming up from 124 to 127 mEq/L. Yesterday sodium chloride tabs were added and I increased the dose to 2 grams twice a day today, as blood pressure remains low. Patient is also on midodrine, and this has been increased to 5 mg t.i.d. Serum cortisol level was not low. It was at 19. 2. Mild hyperkalemia. Continue to monitor for now. 3. Metabolic acidosis, maintained on oral sodium bicarb. PLAN: Increase sodium chloride tabs to 2 grams twice a day. Repeat labs in a.m. Increase midodrine to 5 t.i.d. MMODL / DAYANARAN: [id number] /
[2019-09-16] MEDS ORDERED: SODIUM CHLORIDE TAB 1 GM TAB PO SCH (21:00)
[2019-09-17] MEDS: NITROGLYCERIN OINT 1 INCH/GM PACKET TOPICAL SCH ×3 (05:33→17:32)
[2019-09-17] MEDS: MIDODRINE 5 MG TAB PO SCH ×3 (05:36→17:36)
[2019-09-17] MEDS: LEVOTHYROXINE 100 MCG TAB PO SCH (05:36)
[2019-09-17] MEDS: LACTATED RINGERS 1,000 ML IV SCH (05:36)
[2019-09-17] MEDS: LEVOTHYROXINE 75 MCG TAB PO SCH (05:36)
--- NOTE | 2019-09-17 06:57 | XR ---
EXAMINATION TYPE: XR chest 2V DATE OF EXAM: 09/17/2019 HISTORY: shortness of breath. REFERENCE: Previous study dated 09/12/2019. FINDINGS: The heart is enlarged. There is a stable right-sided pulmonary nodule. The lungs are otherw ise clear. There is blunting of the left CP angle. I could not exclude a small left effusion. IMPRESSION: 1. CARDIOMEGALY. 2. I CANNOT EXCLUDE A SMALL LEFT EFFUSION. 3. STABLE, RIGHT-SIDED PULMONARY NODULE.
[2019-09-17 07:04] LABS: African American GFR (CKD) >90 (>60 ml/min/1.73 sqM); Anion Gap 4 mmol/L; Blood Urea Nitrogen 52 mg/dL (9-20); Calcium 8.1 mg/dL (8.4-10.2); Carbon Dioxide 21 mmol/L (22-30); Chloride 100 mmol/L (98-107); Glucose 95 mg/dL (74-99); Non-African American GFR(CKD) 80 (>60 ml/min/1.73 sqM); Potassium 5.6 mmol/L (3.5-5.1); Sodium 125 mmol/L (137-145)
[2019-09-17] MEDS: ATORVASTATIN 40 MG TAB PO SCH (08:36)
[2019-09-17] MEDS: APIXABAN 2.5 MG TABLET PO SCH (08:36)
[2019-09-17] MEDS: SODIUM BICARBONATE TAB 650 MG TAB PO SCH ×2 (08:36→21:17)
[2019-09-17] MEDS: SODIUM CHLORIDE TAB 1 GM TAB PO SCH ×2 (08:36→21:18)
[2019-09-17] MEDS: ASPIRIN 325 MG TAB PO SCH (08:36)
[2019-09-17] MEDS: prednisoLONE ACETATE 1% OPHTH DROPS 5 ML BTL RIGHT EYE SCH ×2 (08:37→21:18)
[2019-09-17] MEDS ORDERED: SODIUM POLYSTYRENE SULFONATE 15 GM/60 ML BOTTLE PO STA (09:09)
[2019-09-17] MEDS ORDERED: SODIUM CHLORIDE 0.9% 1,000 ML IV SCH (12:30)
--- NOTE | 2019-09-17 13:19 | P.PN ---
Subjective Progress Note Date: 09/17/19 Follow-up for hyponatremia. She denies any nausea vomiting diarrhea. No dizziness lightheadedness. Blood pressures running low. Objective - Vital Signs Vital signs: Vital Signs Temp 96.6 F L 09/17/19 12:00 Pulse 79 09/17/19 12:00 Resp 18 09/17/19 12:00 BP 88/59 09/17/19 12:00 Pulse Ox 97 09/17/19 12:00 Intake & Output 09/16/19 09/17/19 09/17/19 18:59 06:59 18:59 Intake Total 720 740 Output Total 23 Balance 720 717 Weight 75.5 kg 79.6 kg Intake: Intake, IV Titration 500 Amount Lactated Ringers 1,000 ml 500 @ 75 mls/hr IV .[id number] SHAINA Rx#:[id number] Oral 720 240 Output: Post Void Residual 23 Other: Voiding Method Self-Catheterization Self-Catheterization Self-Catheterization # Voids 2 1 1 # Bowel Movements 1 - Exam No acute distress S1-S2 heard Lungs clear Abdomen soft No edema - Labs CBC & Chem 7: 09/12/19 14:06 09/17/19 06:25 Labs: Abnormal Lab Results - Last 24 Hours (Table) 09/17/19 Range/Units 06:25 Sodium 125 L (137-145) mmol/L Potassium 5.6 H (3.5-5.1) mmol/L Carbon Dioxide 21 L (22-30) mmol/L BUN 52 H (9-20) mg/dL Calcium 8.1 L (8.4-10.2) mg/dL Assessment and Plan Assessment: #1 hypotonic hyponatremia suspect hypovolemic with urine sodium less than 20. Rule out adrenal insufficiency with hyperkalemia #2 mild hyperkalemia #3 chronic urinary retention requiring straight caths Plan: #1 continue with salt tablets for now, change IV fluids from LR to normal saline. #2 PVR to rule out urinary retention #3 is in the random cortisol is normal check ACTH stimulation test with low blood pressures and hyperkalemia.
--- NOTE | 2019-09-17 13:46 | P.PN ---
Subjective Patient is admitted for hypovolemic hyponatremia and found to have significant sinus pauses cardiology is following the patient patient is supposed been IV fluids it appears like IV fluids were discontinued last night will be started back on IV fluids will instruct the nursing staff not to stop the IV fluids patient BNP is elevated but patient is not in heart failure patient is actually hypovolemic. Patient feels better than yesterday serum sodium went up to 127 09/17/2019 Patient's serum sodium went down patient will be started back on IV fluids lactated Ringer's will be discontinued and patient was started on normal saline and patient has hyperkalemia we'll give him a dose of Oxalate cosyntropin stim ablation test is being ordered discussed with nephrology. Constitutional: Denied any fatigue denied any fever. Cardio vascular: denied any chest pain, palpitations Gastrointestinal denied any nausea vomiting Pulmonary: Denied any shortness of breath cough Neurologic denied any new focal deficits All inpatient medications were reviewed and appropriate changes in these medications as dictated in the interval history and assessment and plan. Objective - Vital Signs Vital signs: Vital Signs Temp 96.6 F L 09/17/19 12:00 Pulse 79 09/17/19 12:00 Resp 18 09/17/19 12:00 BP 88/59 09/17/19 12:00 Pulse Ox 97 09/17/19 12:00 Intake & Output 09/16/19 09/17/19 09/17/19 18:59 06:59 18:59 Intake Total 720 740 Output Total 23 Balance 720 717 Weight 75.5 kg 79.6 kg Intake: Intake, IV Titration 500 Amount Lactated Ringers 1,000 ml 500 @ 75 mls/hr IV .[id number] [facility] Rx#:[id number] Oral 720 240 Output: Post Void Residual 23 Other: Voiding Method Self-Catheterization Self-Catheterization Self-Catheterization # Voids 2 1 1 # Bowel Movements 1 - Exam PHYSICAL EXAMINATION: GENERAL: The patient is alert and oriented x3, not in any acute distress. Well developed, well nourished. HEENT: Pupils are round and equally reacting to light. EOMI. No scleral icterus. No conjunctival pallor. Normocephalic, atraumatic. No pharyngeal erythema. No thyromegaly. CARDIOVASCULAR: S1 and S2 present. No murmurs, rubs, or gallops. PULMONARY: Chest is clear to auscultation, no wheezing or crackles. ABDOMEN: His abdomen is distended does have some fluid and ascites no rebound or rigidity no tenderness. MUSCULOSKELETAL: No joint swelling or deformity. EXTREMITIES: No cyanosis, clubbing, or pedal edema. NEUROLOGICAL: Gross neurological examination did not reveal any focal deficits. SKIN: No rashes. - Labs CBC & Chem 7: 09/12/19 14:06 09/17/19 06:25 Labs: Abnormal Lab Results - Last 24 Hours (Table) 09/17/19 Range/Units 06:25 Sodium 125 L (137-145) mmol/L Potassium 5.6 H (3.5-5.1) mmol/L Carbon Dioxide 21 L (22-30) mmol/L BUN 52 H (9-20) mg/dL Calcium 8.1 L (8.4-10.2) mg/dL Assessment and Plan Plan: -Severe hyponatremia appears to be hypovolemic hyponatremia from excessive diuretic therapy patient looks like hypovolemic hyponatremia did not improve with IV fluids cosyntropin stimulation test is being ordered IV fluids the form of normal saline -Bradycardia: Cardiology will evaluate the patient patient does have A. fib patient is in persistent A. fib not on any rate control medications at this time Continue with anticoagulation which will be temporally held for paracentesis -Idiopathic cirrhosis: patient is status post paracentesis patient will be resumed back on Eliquis -hyperkalemia secondary to lactated Ringer's which is being discontinued -Congestive heart failure chronic diastolic dysfunction secondary to infiltrative cardiomyopathy patient is hypovolemic requiring IV fluids hold off on diuretic therapy -Mildly elevated troponins doesn't have any chest pain secondary to acute renal failure -Acute renal failure: Secondary to excessive diuretic therapy as mentioned -elevated liver enzymes mild elevation secondary to cirrhosis idiopathic in natu re -Persistent A. fib patient is presently bradycardic
[2019-09-17] MEDS ORDERED: FUROSEMIDE 10 MG/ML 4 ML VIAL IV STA (20:39)
--- NOTE | 2019-09-17 21:23 | US ---
EXAMINATION TYPE: US abdomen limited DATE OF EXAM: 09/17/2019 COMPARISON: NONE CLINICAL HISTORY: Ascites . Mild to minimal ascites. IMPRESSION: Minimal ascites
[2019-09-18 06:42] LABS: Calcium 7.9 mg/dL (8.4-10.2)
[2019-09-18] MEDS: LEVOTHYROXINE 75 MCG TAB PO SCH (06:59)
[2019-09-18] MEDS: MIDODRINE 5 MG TAB PO SCH ×3 (06:59→17:13)
[2019-09-18] MEDS: LEVOTHYROXINE 100 MCG TAB PO SCH (06:59)
[2019-09-18] MEDS: prednisoLONE ACETATE 1% OPHTH DROPS 5 ML BTL RIGHT EYE SCH ×2 (08:31→22:14)
[2019-09-18] MEDS: ASPIRIN 325 MG TAB PO SCH (08:31)
[2019-09-18] MEDS: ATORVASTATIN 40 MG TAB PO SCH (08:31)
[2019-09-18] MEDS: APIXABAN 2.5 MG TABLET PO SCH (08:31)
[2019-09-18] MEDS: SODIUM BICARBONATE TAB 650 MG TAB PO SCH ×2 (08:31→22:14)
[2019-09-18] MEDS: SODIUM CHLORIDE TAB 1 GM TAB PO SCH (08:31)
--- NOTE | 2019-09-18 10:55 | XR ---
EXAMINATION TYPE: XR chest 1V DATE OF EXAM: 09/18/2019 HISTORY: chf. REFERENCE: Previous study dated 09/17/2019. FINDINGS: The study is quite lordotic in projection. There is multichamber cardiac enlargement. There is a stable right-sided pulmonary nodule. There is b lunting of the left CP angle and I cannot exclude a small effusion. IMPRESSION: NO SIGNIFICANT INTERVAL CHANGE IN THE APPEARANCE THE CHEST.
[2019-09-18] MEDS ORDERED: COSYNTROPIN 0.25 MG VIAL IVP ONE (11:12)
--- NOTE | 2019-09-18 11:34 | P.PN ---
Subjective Progress Note Date: 09/18/19 Follow-up for hyponatremia. Complaining of abdominal and lower back swelling. Minimal ascites on abdominal ultrasound. No nausea vomiting diarrhea. Objective - Vital Signs Vital signs: Vital Signs Temp 97.7 F 09/18/19 08:20 Pulse 79 09/18/19 08:20 Resp 16 09/18/19 08:20 BP 100/67 09/18/19 08:20 Pulse Ox 92 L 09/18/19 08:20 Intake & Output 09/17/19 09/18/19 09/18/19 18:59 06:59 18:59 Intake Total 1720 425 Output Total 123 1000 425 Balance 1597 -1000 0 Weight 81.6 kg Intake: Intake, IV Titration 1300 5 Amount Lactated Ringers 1,000 ml 1300 @ 75 mls/hr IV .[id number] [facility] Rx#:[id number] Sodium Chloride 0.9% 1, 5 000 ml @ 100 mls/hr IV . Q10H [facility] Rx#:[id number] Oral 420 420 Output: Urine 100 1000 425 Post Void Residual 23 Other: Voiding Method Self-Catheterization Self-Catheterization Self-Catheterization # Voids 1 1 - Exam No acute distress S1-S2 heard Lungs clear Abdomen soft Edema around the abdomen and lower back. - Labs CBC & Chem 7: 09/12/19 14:06 09/18/19 06:09 Labs: Abnormal Lab Results - Last 24 Hours (Table) 09/18/19 Range/Units 06:09 Sodium 128 L (137-145) mmol/L BUN 53 H (9-20) mg/dL Calcium 7.9 L (8.4-10.2) mg/dL Assessment and Plan Assessment: #1 hypotonic hyponatremia suspect hypovolemic even though urine studies consistent with hypovolemia. #2 mild hyperkalemia improved. #3 chronic urinary retention requiring straight caths #4 ascites requiring paracentesis. Plan: #1 Lasix 30 mg IV 3 times a day. Stop salt tablets. #2 repeat urine studies and labs in the morning.
--- NOTE | 2019-09-18 12:18 | P.PN ---
Subjective Patient is admitted for hypovolemic hyponatremia and found to have significant sinus pauses cardiology is following the patient patient is supposed been IV fluids it appears like IV fluids were discontinued last night will be started back on IV fluids will instruct the nursing staff not to stop the IV fluids patient BNP is elevated but patient is not in heart failure patient is actually hypovolemic. Patient feels better than yesterday serum sodium went up to 127 09/17/2019 Patient's serum sodium went down patient will be started back on IV fluids lactated Ringer's will be discontinued and patient was started on normal saline and patient has hyperkalemia we'll give him a dose of Oxalate cosyntropin stim ablation test is being ordered discussed with nephrology. 09/18/2019 Patient is IV fluids were discontinued as patient is gaining weight and third spacing with the edema in the lower abdomen. Patient is receiving Lasix today will see what his serum sodium is cosyntropin stim ablation test is being obtained as well. Had lengthy discussion with the family today and although feels very well.obtaining a chest x-ray to make sure patient doesn't have any pulmonary edema Constitutional: Denied any fatigue denied any fever. Cardio vascular: denied any chest pain, palpitations Gastrointestinal denied any nausea vomiting Pulmonary: Denied any shortness of breath cough Neurologic denied any new focal deficits All inpatient medications were reviewed and appropriate changes in these medications as dictated in the interval history and assessment and plan. Objective - Vital Signs Vital signs: Vital Signs Temp 97.7 F 09/18/19 08:20 Pulse 79 09/18/19 08:20 Resp 16 09/18/19 08:20 BP 100/67 09/18/19 08:20 Pulse Ox 92 L 09/18/19 08:20 Intake & Output 09/17/19 09/18/19 09/18/19 18:59 06:59 18:59 Intake Total 1720 425 Output Total 123 1000 425 Balance 1597 -1000 0 Weight 81.6 kg Intake: Intake, IV Titration 1300 5 Amount Lactated Ringers 1,000 ml 1300 @ 75 mls/hr IV .[id number] [facility] Rx#:[id number] Sodium Chloride 0.9% 1, 5 000 ml @ 100 mls/hr IV . Q10H [facility] Rx#:[id number] Oral 420 420 Output: Urine 100 1000 425 Post Void Residual 23 Other: Voiding Method Self-Catheterization Self-Catheterization Self-Catheterization # Voids 1 1 - Exam PHYSICAL EXAMINATION: GENERAL: The patient is alert and oriented x3, not in any acute distress. Well developed, well nourished. HEENT: Pupils are round and equally reacting to light. EOMI. No scleral icterus. No conjunctival pallor. Normocephalic, atraumatic. No pharyngeal erythema. No thyromegaly. CARDIOVASCULAR: S1 and S2 present. No murmurs, rubs, or gallops. PULMONARY: Chest is clear to auscultation, no wheezing or crackles. ABDOMEN: His abdomen is distended does have some fluid and ascites no rebound or rigidity no tenderness. MUSCULOSKELETAL: No joint swelling or deformity. EXTREMITIES: No cyanosis, clubbing, or pedal edema. NEUROLOGICAL: Gross neurological examination did not reveal any focal deficits. SKIN: No rashes. - Labs CBC & Chem 7: 09/12/19 14:06 09/18/19 06:09 Labs: Abnormal Lab Results - Last 24 Hours (Table) 09/18/19 Range/Units 06:09 Sodium 128 L (137-145) mmol/L BUN 53 H (9-20) mg/dL Calcium 7.9 L (8.4-10.2) mg/dL Assessment and Plan Plan: -Severe hyponatremia unsure that exact etiology patient was believed to have hypervolemic hyponatremia was given IV fluids his sodium is improving marginally with IV fluids but his third spacing because of which IV Lasix is being ordered by nephrology today and will recheck the sodium tomorrow. -Bradycardia:with A. fib. On any rate control medications and patient is on Eliquis -Idiopathic cirrhosis: patient is status post paracentesis patientwase resumed back on Eliquis -hyperkalemiaresolved now -Congestive heart failure chronic diastolic dysfunction secondary to infiltrative cardiomyopathy -Mildly elevated troponins doesn't have any chest pain related to be secondary to acute renal failure on admission which resolved at this time -Acute renal failure: Secondary to excessive diuretic therapy as mentioned renal failure your improved -elevated liver enzymes mild elevation secondary to cirrhosis idiopathic in nature -Persistent A. fib patient is presently bradycardic
[2019-09-18] MEDS: FUROSEMIDE 10 MG/ML 4 ML VIAL IV SCH ×2 (12:49→17:13)
[2019-09-19] MEDS: FUROSEMIDE 10 MG/ML 4 ML VIAL IV SCH ×2 (01:32→09:39)
[2019-09-19 06:01] LABS: Calcium 7.7 mg/dL (8.4-10.2); Potassium 4.1 mmol/L (3.5-5.1)
[2019-09-19] MEDS: LEVOTHYROXINE 100 MCG TAB PO SCH (06:26)
[2019-09-19] MEDS: MIDODRINE 5 MG TAB PO SCH ×3 (06:26→17:32)
[2019-09-19] MEDS: LEVOTHYROXINE 75 MCG TAB PO SCH (06:26)
[2019-09-19 08:56] LABS: Appearance,Urine Clear (Clear); Bilirubin,Urine Negative (Negative); Blood,Urine Negative (Negative); Color,Urine Yellow; Glucose,Urine (UA) Negative (Negative); Hyaline Casts,Urine 3 /lpf (0-2); Ketones,Urine Negative (Negative); Leukocyte Esterase,Urine Moderate (Negative); Mucus,Urine Rare /hpf; Nitrite,Urine Negative (Negative); Protein,Urine 1+ (Negative); RBC,Urine 1 /hpf (0-5); Specific Gravity,Urine 1.011 (1.001-1.035); Squamous Epithelial Cell,Urine <1 /hpf (0-4); Urobilinogen,Urine <2.0 mg/dL (<2.0); WBC,Urine 8 /hpf (0-5)
[2019-09-19] MEDS: APIXABAN 2.5 MG TABLET PO SCH (09:34)
[2019-09-19] MEDS: SODIUM BICARBONATE TAB 650 MG TAB PO SCH ×2 (09:34→21:52)
[2019-09-19] MEDS: ATORVASTATIN 40 MG TAB PO SCH (09:34)
[2019-09-19] MEDS: prednisoLONE ACETATE 1% OPHTH DROPS 5 ML BTL RIGHT EYE SCH ×2 (09:34→21:52)
[2019-09-19] MEDS: ASPIRIN 325 MG TAB PO SCH (09:34)
--- NOTE | 2019-09-19 10:27 | P.PN ---
Subjective Patient is seen in follow-up for hyponatremia. Patient was started on IV Lasix yesterday and sodium level today is down to 125. Patient states he is still 20 pounds above his weight prior to admission. No vomiting or diarrhea. Vital signs are stable. General: The patient appeared well nourished and normally developed. HEENT: Head exam is unremarkable. Neck is without jugular venous distension. LUNGS: Lungs are clear to auscultation and percussion. Breath sounds decreased. HEART: Rate and Rhythm are regular. First and second heart sounds normal. No murmurs, rubs or gallops. ABDOMEN: Abdominal exam reveals normal bowel sounds. Distention noted. EXTREMITITES: 1+ edema. Objective - Vital Signs Vital signs: Vital Signs Temp 97.4 F L 09/19/19 08:00 Pulse 59 L 09/19/19 08:00 Resp 19 09/19/19 08:00 BP 87/56 09/19/19 08:00 Pulse Ox 98 09/19/19 08:00 Intake & Output 09/18/19 09/19/19 09/19/19 18:59 06:59 18:59 Intake Total 1085 240 Output Total 605 100 Balance 480 140 Weight 83.9 kg Intake: Intake, IV Titration 5 Amount Sodium Chloride 0.9% 1, 5 000 ml @ 100 mls/hr IV . Q10H [facility] Rx#:[id number] Oral 1080 240 Output: Urine 605 100 Other: Voiding Method Self-Catheterization Self-Catheterization # Voids 1 # Bowel Movements 1 1 - Labs CBC & Chem 7: 09/12/19 14:06 09/19/19 05:20 Labs: Abnormal Lab Results - Last 24 Hours (Table) 09/19/19 09/19/19 Range/Units 05:20 08:26 Sodium 125 L (137-145) mmol/L Chloride 96 L (98-107) mmol/L BUN 61 H (9-20) mg/dL Glucose 103 H (74-99) mg/dL Calcium 7.7 L (8.4-10.2) mg/dL Urine Protein 1+ H (Negative) Ur Leukocyte Esterase Moderate H (Negative) Urine WBC 8 H (0-5) /hpf Hyaline Casts 3 H (0-2) /lpf Urine Mucus Rare H (None) /hpf Assessment and Plan Plan: Assessment: 1. Hypervolemic hyponatremia. Sodium level 125 today. 2. Idiopathic cirrhosis. 3. Ascites status post paracentesis with 3.3 L drained this admission. 4. Metabolic acidosis maintained on oral sodium bicarbonate. 5. Hypotension due to underlying cirrhosis maintained on midodrine. Plan: 1200 mL fluid restriction. Hold Lasix today. Samsca 15 mg once today. Encourage oral intake, particularly protein. Repeat electrolytes in the morning.
[2019-09-19] MEDS ORDERED: TOLVAPTAN 15 MG 1/2 TABLET PO ONE (11:00)
--- NOTE | 2019-09-19 15:02 | P.PN ---
Subjective Progress Note Date: 09/19/19 Principal diagnosis: Patient is admitted for hypovolemic hyponatremia and found to have significant sinus pauses cardiology is following the patient patient is supposed been IV flu ids it appears like IV fluids were discontinued last night will be started back on IV fluids will instruct the nursing staff not to stop the IV fluids patient BNP is elevated but patient is not in heart failure patient is actually hypovolemic. Patient feels better than yesterday serum sodium went up to 127 Constitutional: Denied any fatigue denied any fever. Cardio vascular: denied any chest pain, palpitations Gastrointestinal denied any nausea vomiting Pulmonary: Denied any shortness of breath cough Neurologic denied any new focal deficits All inpatient medications were reviewed and appropriate changes in these medications as dictated in the interval history and assessment and plan. 09/15/2019 Patient is seen and evaluated in follow-up today currently sitting at the side of the bed in no acute distress. Patient's blood pressure was found to be 80 systolic although asymptomatic. Patient denies any feelings of dizziness, lightheadedness, chest pains, or feelings of passing out. Patient was found to have a stage II to 3 pressure ulcer on the buttocks during a shower today. Salma ent states that he's had this for quite some time and it doesn't bother him or cause any pain or discomfort at all. Patient states it is most likely due to the fact that he sits in the chair or in the bed most of the day and has for quite some time. Nursing staff is aware and will provide some local wound care. Patient had an ultrasound-guided paracentesis done removing approximately 3.3 L today and tolerated well. Patient states his last paracentesis was approximately one month ago. Patient states he feels much better status post paracentesis. No reports of chest pain, shortness of breath, or palpitations. Patient is afebrile. No reports of nausea or vomiting and patient has been to lerating diet. 09/16/2019 Patient is seen and evaluated in follow-up today sitting up in bed in no acute distress. No acute overnight issues. Patient continues to be hypotensive and midodrine will be increased. Patient's sodium remains at 127 and sodium chloride tabs along with bicarb tablets have been added. Patient remains on lactated Ringer's at 75 ML per hour. Patient is asymptomatic of these low blood pressures and states "I always have low blood pressure". Nephrology is following. Will repeat chest x-ray in the morning and labs. Patient states he would really like to go home. Will continue to monitor closely with possibility of discharge tomorrow. Currently no reports of chest pain, shortness of breath, or palpitations. Patient denies any dizziness, lightheadedness, feelings of passing out. Patient afebrile. No reports of nausea or vomiting and patient is tolerating diet. Patient is admitted for hypovolemic hyponatremia and found to have significant sinus pauses cardiology is following the patient patient is supposed been IV fluids it appears like IV fluids were discontinued last night will be started back on IV fluids will instruct the nursing staff not to stop the IV fluids patient BNP is elevated but patient is not in heart failure patient is actually hypovolemic. Patient feels better than yesterday serum sodium went up to 127 09/17/2019 Patient's serum sodium went down patient will be started back on IV fluids lactated Ringer's will be discontinued and patient was started on normal saline and patient has hyperkalemia we'll give him a dose of Oxalate cosyntropin stim ablation test is being ordered discussed with nephrology. 09/18/2019 Patient is IV fluids were discontinued as patient is gaining weight and third spacing with the edema in the lower abdomen. Patient is receiving Lasix today will see what his serum sodium is cosyntropin stim ablation test is being obtained as well. Had lengthy discussion with the family today and although fe els very well.obtaining a chest x-ray to make sure patient doesn't have any pulmonary edema Constitutional: Denied any fatigue denied any fever. Cardio vascular: denied any chest pain, palpitations Gastrointestinal denied any nausea vomiting Pulmonary: Denied any shortness of breath cough Neurologic denied any new focal deficits 09/19/2019 Patient is seen and evaluated in follow-up today and continues to have hyponatremia and sodium today has worsened and is 125. Nephrology is following. Patient underwent chest x-ray yesterday showing no significant interval change within the appearance of the chest. Per patient patient's shortness of breath has improved and was receiving 40 mg IV Lasix every 8 hours. Patient continues to have hypotension and significant abdominal swelling. Patient was given a dose of tolvaptan and will repeat a.m. labs. Patient currently remains on Eliquis and continues to have extensive bruising and bleeding noted under the skin of the abdomen and left lower extremity. Patient does admit to a recent fall approximately one week ago and did undergo paracentesis almost a week ago as well. Currently no reports of chest pain, shortness of breath, or palpitat ions. Patient is afebrile. No reports of nausea or vomiting and patient is tolerating diet. Per nursing staff patient was given a nitro earlier this morning for some intermittent chest pain which per patient has resolved. Objective - Vital Signs Vital signs: Vital Signs Temp 97.4 F L 09/19/19 08:00 Pulse 68 09/19/19 11:57 Resp 18 09/19/19 11:55 BP 79/51 09/19/19 11:55 Pulse Ox 96 09/19/19 11:55 Intake & Output 09/18/19 09/19/19 09/19/19 18:59 06:59 18:59 Intake Total 1085 240 Output Total 605 102 Balance 480 138 Weight 83.9 kg Intake: Intake, IV Titration 5 Amount Sodium Chloride 0.9% 1, 5 000 ml @ 100 mls/hr IV . Q10H [facility] Rx#:[id number] Oral 1080 240 Output: Urine 605 102 Other: Voiding Method Self-Catheterization Self-Catheterization Self-Catheterization # Voids 1 # Bowel Movements 1 0 - Exam GENERAL: The patient is alert and oriented x3, sitting up in bed, not in any acute distress. Well developed, well nourished. HEENT: Pupils are round and equally reacting to light. EOMI. No scleral icterus. No conjunctival pallor. Normocephalic, atraumatic. No pharyngeal erythema. No thyromegaly. CARDIOVASCULAR: S1 and S2 present. No murmurs, rubs, or gallops. PULMONARY: Chest is clear to auscultation, no wheezing or crackles. ABDOMEN: His abdomen is soft, mild to moderate distention noted, no tenderness noted on palpation. MUSCULOSKELETAL: No joint swelling or deformity. EXTREMITIES: No cyanosis, clubbing, or pedal edema. NEUROLOGICAL: Gross neurological examination did not reveal any focal deficits. SKIN: No rashes. Bruising discoloration noted of the abdomen and left lower extremity - Labs CBC & Chem 7: 09/12/19 14:06 09/19/19 05:20 Labs: Abnormal Lab Results - Last 24 Hours (Table) 09/19/19 09/19/19 Range/Units 05:20 08:26 Sodium 125 L (137-145) mmol/L Chloride 96 L (98-107) mmol/L BUN 61 H (9-20) mg/dL Glucose 103 H (74-99) mg/dL Calcium 7.7 L (8.4-10.2) mg/dL Urine Protein 1+ H (Negative) Ur Leukocyte Esterase Moderate H (Negative) Urine WBC 8 H (0-5) /hpf Hyaline Casts 3 H (0-2) /lpf Urine Mucus Rare H (None) /hpf Assessment and Plan Assessment: -Severe hyponatremia appears to be hypovolemic hyponatremia from excessive diuretic therapy. IV Lasix has been discontinued. Unsure of exact etiology. Patient was also briefly maintained on IV fluids which have been discontinued as well as the patient was having some third spacing. Sodium continues to worsen and is currently 125 today. Patient was given a dose of Samsa. Will repeat a.m. labs. Nephrology is following. -Bradycardia: Cardiology has evaluated the patient patient does have A. fib patient is in persistent A. fib not on any rate control medications at this time. Patient remains on Eliquis and aspirin. Heart rate remains in the 60s and 70s -Idiopathic cirrhosis: Status post ultrasound-guided paracentesis with 3.3 L removed last week. -Congestive heart failure chronic diastolic dysfunction secondary to infiltrative cardiomyopathy -Mildly elevated troponins doesn't have any chest pain secondary to acute renal failure, present on admission. Resolved -Acute renal failure: Secondary to excessive diuretic therapy as mentioned. Creatinine currently 0.96 -elevated liver enzymes mild elevation secondary to cirrhosis idiopathic in nature -Hypotension: Patient is currently on Midodrine. Nephrology is following. -Persistent A. fib patient is maintained on Eliquis
--- NOTE | 2019-09-19 21:55 | US ---
EXAMINATION TYPE: US abdomen limited DATE OF EXAM: 09/19/2019 COMPARISON: US CLINICAL HISTORY: increased swelling in abdominal cavity. Increased swelling in abdominal cavity. Scanned all four quadrants of the abdomen. Fluid is seen in all four quadrants. RLQ fluid pocket is a djacent to the bladder. Bowel is seen within left quadrant images. IMPRESSION: Abdominal ascites fluid is demonstrated throughout the abdomen.
[2019-09-20] MEDS: MIDODRINE 5 MG TAB PO SCH ×3 (06:13→16:44)
[2019-09-20] MEDS: LEVOTHYROXINE 100 MCG TAB PO SCH (06:13)
[2019-09-20] MEDS: LEVOTHYROXINE 75 MCG TAB PO SCH (06:14)
[2019-09-20 07:32] LABS: Albumin 2.7 g/dL (3.5-5.0); Potassium 4.3 mmol/L (3.5-5.1); Total Protein 5.2 g/dL (6.3-8.2)
[2019-09-20] MEDS: SODIUM BICARBONATE TAB 650 MG TAB PO SCH ×2 (08:36→21:11)
[2019-09-20] MEDS: ASPIRIN 325 MG TAB PO SCH (08:36)
[2019-09-20] MEDS: ATORVASTATIN 40 MG TAB PO SCH (08:36)
[2019-09-20] MEDS: APIXABAN 2.5 MG TABLET PO SCH (08:36)
[2019-09-20] MEDS: prednisoLONE ACETATE 1% OPHTH DROPS 5 ML BTL RIGHT EYE SCH ×2 (08:37→21:11)
[2019-09-20] MEDS ORDERED: ALBUMIN HUMAN 25% 50 ML in EMPTY BAG 1 BAG IVPB SCH (11:00)
--- NOTE | 2019-09-20 11:41 | P.PN ---
Subjective Patient is seen in follow-up for hyponatremia. Sodium level is little better today. Status post samsca yesterday. Still quite edematous. Vital signs are stable. General: The patient appeared well nourished and normally developed. HEENT: Head exam is unremarkable. Neck is without jugular venous distension. LUNGS: Lungs are clear to auscultation and percussion. Breath sounds decreased. HEART: Rate and Rhythm are regular. First and second heart sounds normal. No murmurs, rubs or gallops. ABDOMEN: Abdominal exam reveals normal bowel sounds. Distention noted. EXTREMITITES: 1+ edema. Objective - Vital Signs Vital signs: Vital Signs Temp 97.7 F 09/20/19 08:00 Pulse 66 09/20/19 08:00 Resp 16 09/20/19 08:00 BP 93/54 09/20/19 08:00 Pulse Ox 96 09/20/19 08:00 Intake & Output 09/19/19 09/20/19 09/20/19 18:59 06:59 18:59 Intake Total 462 0 240 Output Total 102 4 Balance 360 -4 240 Weight 85.2 kg Intake: Oral 462 0 240 Output: Urine 102 4 Other: Voiding Method Self-Catheterization Self-Catheterization Self-Catheterization # Voids 1 # Bowel Movements 0 0 - Labs CBC & Chem 7: 09/12/19 14:06 09/20/19 06:38 Labs: Abnormal Lab Results - Last 24 Hours (Table) 09/20/19 Range/Units 06:38 Sodium 127 L (137-145) mmol/L Chloride 96 L (98-107) mmol/L BUN 65 H (9-20) mg/dL Calcium 8.0 L (8.4-10.2) mg/dL Total Bilirubin 3.0 H (0.2-1.3) mg/dL AST 76 H (17-59) U/L Alkaline Phosphatase 249 H (38-126) U/L Total Protein 5.2 L (6.3-8.2) g/dL Albumin 2.7 L (3.5-5.0) g/dL Assessment and Plan Plan: Assessment: 1. Hypervolemic hyponatremia. Sodium level 127 today. Status post Samsca yesterday. 2. Idiopathic cirrhosis. 3. Ascites status post paracentesis with 3.3 L drained this admission. Repeat ultrasound shows ascites again. 4. Metabolic acidosis maintained on oral sodium bicarbonate. 5. Hypotension due to underlying cirrhosis maintained on midodrine. Plan: 1200 mL fluid restriction. Add Lasix 40 mg orally twice daily. Repeat Samsca 15 mg once today. Encourage oral intake, particularly protein. Repeat electrolytes in the morning. Since patient is on anticoagulation, paracentesis will be done on . He is to receive 25 g of albumin prior to paracentesis and another 25 g after paracentesis.
[2019-09-20] MEDS: FUROSEMIDE 40 MG TAB PO SCH (12:50)
[2019-09-20] MEDS ORDERED: TOLVAPTAN 15 MG 1/2 TABLET PO ONE (13:00)
[2019-09-20 14:13] VITALS: BMI 26.9
--- NOTE | 2019-09-20 15:01 | P.PN ---
Subjective Progress Note Date: 09/20/19 Principal diagnosis: Patient is admitted for hypovolemic hyponatremia and found to have significant sinus pauses cardiology is following the patient patient is supposed been IV flu ids it appears like IV fluids were discontinued last night will be started back on IV fluids will instruct the nursing staff not to stop the IV fluids patient BNP is elevated but patient is not in heart failure patient is actually hypovolemic. Patient feels better than yesterday serum sodium went up to 127 Constitutional: Denied any fatigue denied any fever. Cardio vascular: denied any chest pain, palpitations Gastrointestinal denied any nausea vomiting Pulmonary: Denied any shortness of breath cough Neurologic denied any new focal deficits All inpatient medications were reviewed and appropriate changes in these medications as dictated in the interval history and assessment and plan. 09/15/2019 Patient is seen and evaluated in follow-up today currently sitting at the side of the bed in no acute distress. Patient's blood pressure was found to be 80 systolic although asymptomatic. Patient denies any feelings of dizziness, lightheadedness, chest pains, or feelings of passing out. Patient was found to have a stage II to 3 pressure ulcer on the buttocks during a shower today. Salma ent states that he's had this for quite some time and it doesn't bother him or cause any pain or discomfort at all. Patient states it is most likely due to the fact that he sits in the chair or in the bed most of the day and has for quite some time. Nursing staff is aware and will provide some local wound care. Patient had an ultrasound-guided paracentesis done removing approximately 3.3 L today and tolerated well. Patient states his last paracentesis was approximately one month ago. Patient states he feels much better status post paracentesis. No reports of chest pain, shortness of breath, or palpitations. Patient is afebrile. No reports of nausea or vomiting and patient has been to lerating diet. 09/16/2019 Patient is seen and evaluated in follow-up today sitting up in bed in no acute distress. No acute overnight issues. Patient continues to be hypotensive and midodrine will be increased. Patient's sodium remains at 127 and sodium chloride tabs along with bicarb tablets have been added. Patient remains on lactated Ringer's at 75 ML per hour. Patient is asymptomatic of these low blood pressures and states "I always have low blood pressure". Nephrology is following. Will repeat chest x-ray in the morning and labs. Patient states he would really like to go home. Will continue to monitor closely with possibility of discharge tomorrow. Currently no reports of chest pain, shortness of breath, or palpitations. Patient denies any dizziness, lightheadedness, feelings of passing out. Patient afebrile. No reports of nausea or vomiting and patient is tolerating diet. Patient is admitted for hypovolemic hyponatremia and found to have significant sinus pauses cardiology is following the patient patient is supposed been IV fluids it appears like IV fluids were discontinued last night will be started back on IV fluids will instruct the nursing staff not to stop the IV fluids patient BNP is elevated but patient is not in heart failure patient is actually hypovolemic. Patient feels better than yesterday serum sodium went up to 127 09/17/2019 Patient's serum sodium went down patient will be started back on IV fluids lactated Ringer's will be discontinued and patient was started on normal saline and patient has hyperkalemia we'll give him a dose of Oxalate cosyntropin stim ablation test is being ordered discussed with nephrology. 09/18/2019 Patient is IV fluids were discontinued as patient is gaining weight and third spacing with the edema in the lower abdomen. Patient is receiving Lasix today will see what his serum sodium is cosyntropin stim ablation test is being obtained as well. Had lengthy discussion with the family today and although fe els very well.obtaining a chest x-ray to make sure patient doesn't have any pulmonary edema Constitutional: Denied any fatigue denied any fever. Cardio vascular: denied any chest pain, palpitations Gastrointestinal denied any nausea vomiting Pulmonary: Denied any shortness of breath cough Neurologic denied any new focal deficits 09/19/2019 Patient is seen and evaluated in follow-up today and continues to have hyponatremia and sodium today has worsened and is 125. Nephrology is following. Patient underwent chest x-ray yesterday showing no significant interval change within the appearance of the chest. Per patient patient's shortness of breath has improved and was receiving 40 mg IV Lasix every 8 hours. Patient continues to have hypotension and significant abdominal swelling. Patient was given a dose of tolvaptan and will repeat a.m. labs. Patient currently remains on Eliquis and continues to have extensive bruising and bleeding noted under the skin of the abdomen and left lower extremity. Patient does admit to a recent fall approximately one week ago and did undergo paracentesis almost a week ago as well. Currently no reports of chest pain, shortness of breath, or palpitat ions. Patient is afebrile. No reports of nausea or vomiting and patient is tolerating diet. Per nursing staff patient was given a nitro earlier this morning for some intermittent chest pain which per patient has resolved. 09/20/2019 Patient is seen in follow-up today with slight improvement of the sodium and is 127 today. Oral Lasix will be resumed as patient continues to have extensive edema noted of lower extremities. Underwent ultrasound abdomen yesterday showing ascites fluid reaccumulated and patient will be undergoing a paracentesis on as we need to hold anticoagulation prior to paracentesis. Patient is on Eliquis. Patient remains hypotensive although denies any dizziness, lightheadedness, feelings of passing out. Patient will be given another dose of Samsa. Review of systems: Cardiovascular: No reports of chest pain or palpitations Respiratory: No reports of shortness of breath or cough GI: No reports of nausea, vomiting, or diarrhea : No reports of dysuria or retention Active Medications Atorvastatin Calcium (Lipitor) 40 mg PO DAILY [facility] Last Admin: 09/20/19 08:36 Dose: 40 mg Documented by: Furosemide (Lasix) 40 mg PO BID@0900,1600 [facility] Last Admin: 09/20/19 12:50 Dose: 40 mg Documented by: Albumin Human 50 ml/ IV (Solution) 50 mls @ 50 mls/hr IVPB Q1H [facility] Stop: 09/22/19 08:59 Levothyroxine Sodium (Synthroid) 100 mcg PO DAILY@629 [facility] Last Admin: 09/20/19 06:13 Dose: 100 mcg Documented by: Levothyroxine Sodium (Synthroid) 75 mcg PO DAILY@30 [facility] Last Admin: 09/20/19 06:14 Dose: 75 mcg Documented by: Midodrine (Proamatine) 10 mg PO AC-TID [facility] Last Admin: 09/20/19 12:49 Dose: 10 mg Documented by: Nitroglycerin (Nitrostat) 0.4 mg SUBLINGUAL Q5M PRN PRN Reason: Chest Pain Last Admin: 09/19/19 06:26 Dose: 0.4 mg Documented by: Prednisolone Acetate (Pred Forte 1%) 1 drops RIGHT EYE BID [facility] Last Admin: 09/20/19 08:37 Dose: 1 drops Documented by: Sodium Bicarbonate (Sodium Bicarbonate Tab) 650 mg PO BID [facility] Last Admin: 09/20/19 08:36 Dose: 650 mg Documented by: Objective - Vital Signs Vital signs: Vital Signs Temp 97.6 F 09/20/19 12:00 Pulse 67 09/20/19 12:00 Resp 16 09/20/19 12:00 BP 91/57 09/20/19 12:00 Pulse Ox 97 09/20/19 12:00 Intake & Output 09/19/19 09/20/19 09/20/19 18:59 06:59 18:59 Intake Total 462 0 250 Output Total 102 4 Balance 360 -4 250 Weight 85.2 kg 85.2 kg Intake: IV 10 0.9 10 Oral 462 0 240 Output: Urine 102 4 Other: Voiding Method Self-Catheterization Self-Catheterization Self-Catheterization # Voids 1 # Bowel Movements 0 0 - Exam GENERAL: The patient is alert and oriented x3, sitting up in bed, not in any acute distress. Well developed, well nourished. Temp is 97.7F, pulse is 66, respirations are 16, blood pressure is 93/54, oxygen saturation is 96% on room air. HEENT: Pupils are round and equally reacting to light. EOMI. No scleral icterus. No conjunctival pallor. Normocephalic, atraumatic. No pharyngeal erythema. No thyromegaly. CARDIOVASCULAR: S1 and S2 present. No murmurs, rubs, or gallops. PULMONARY: Chest is clear to auscultation, no wheezing or crackles. ABDOMEN: His abdomen is soft, mild to moderate distention noted, no tenderness noted on palpation. MUSCULOSKELETAL: No joint swelling or deformity. EXTREMITIES: No cyanosis, clubbing, or pedal edema. Mild bilateral lower extremity edema noted NEUROLOGICAL: Gross neurological examination did not reveal any focal deficits. SKIN: No rashes. Bruising discoloration noted of the abdomen and left lower extremity - Labs CBC & Chem 7: 09/12/19 14:06 09/20/19 06:38 Labs: Abnormal Lab Results - Last 24 Hours (Table) 09/20/19 Range/Units 06:38 Sodium 127 L (137-145) mmol/L Chloride 96 L (98-107) mmol/L BUN 65 H (9-20) mg/dL Calcium 8.0 L (8.4-10.2) mg/dL Total Bilirubin 3.0 H (0.2-1.3) mg/dL AST 76 H (17-59) U/L Alkaline Phosphatase 249 H (38-126) U/L Total Protein 5.2 L (6.3-8.2) g/dL Albumin 2.7 L (3.5-5.0) g/dL Assessment and Plan Assessment: -Severe hyponatremia appears to be hypovolemic hyponatremia from excessive diuretic therapy. -Bradycardia: Cardiology has evaluated the patient patient does have A. fib patient is in persistent A. fib not on any rate control medications at this time. 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 Resolved -Acute renal failure: Secondary to excessive diuretic therapy as mentioned -elevated liver enzymes mild elevation secondary to cirrhosis idiopathic in nature -Hypotension: Patient is currently on Midodrine. Nephrology is following. -Persistent A. fib patient is maintained on Eliquis Recommendations and discussion: Recommend to continue current medications, management, and symptomatic treatment. Nephrology is following. Patient will be given another dose of Samsa today. Current sodium is 127. Patient was restarted on oral Lasix and will continue to monitor closely. Patient underwent abdominal ultrasound yesterday showing ascites accumulation and will undergo paracentesis on as he is currently on Eliquis which will need to be held prior to paracentesis. Due to multiple complex medical issues, prognosis is guarded. Further r ecommendations to follow.
[2019-09-21] MEDS: MIDODRINE 5 MG TAB PO SCH ×3 (05:38→16:43)
[2019-09-21] MEDS: LEVOTHYROXINE 100 MCG TAB PO SCH (05:39)
[2019-09-21] MEDS: LEVOTHYROXINE 75 MCG TAB PO SCH (05:39)
[2019-09-21 06:36] LABS: Basophils % (A) 1 %; Eosinophils # (A) 0.2 k/uL (0-0.7); Eosinophils % (A) 3 %; HCT 37.2 % (39.0-53.0); HGB 12.1 gm/dL (13.0-17.5); Lymphocytes # (A) 0.4 k/uL (1.0-4.8); Lymphocytes % (A) 6 %; MCH 31.9 pg (25.0-35.0); MCHC 32.6 g/dL (31.0-37.0); MCV 97.9 fL (80.0-100.0); Mean Platelet Volume 7.3; Monocytes # (A) 0.4 k/uL (0-1.0); Monocytes % (A) 7 %; Neutrophils # (A) 4.5 k/uL (1.3-7.7); Neutrophils % (A) 80 %; Platelet Count 155 k/uL (150-450); RDW 13.6 % (11.5-15.5); WBC 5.6 k/uL (3.8-10.6)
[2019-09-21 07:01] LABS: Calcium 8.2 mg/dL (8.4-10.2); Magnesium 2.2 mg/dL (1.6-2.3); Potassium 4.5 mmol/L (3.5-5.1)
[2019-09-21] MEDS: SODIUM BICARBONATE TAB 650 MG TAB PO SCH ×2 (08:46→20:20)
[2019-09-21] MEDS: ATORVASTATIN 40 MG TAB PO SCH (08:46)
[2019-09-21] MEDS: FUROSEMIDE 40 MG TAB PO SCH ×3 (08:47→16:43)
[2019-09-21] MEDS: prednisoLONE ACETATE 1% OPHTH DROPS 5 ML BTL RIGHT EYE SCH ×2 (08:48→20:20)
--- NOTE | 2019-09-21 10:15 | P.PN ---
Subjective Progress Note Date: 09/21/19 Principal diagnosis: Patient is admitted for hypovolemic hyponatremia and found to have significant sinus pauses cardiology is following the patient patient is supposed been IV flu ids it appears like IV fluids were discontinued last night will be started back on IV fluids will instruct the nursing staff not to stop the IV fluids patient BNP is elevated but patient is not in heart failure patient is actually hypovolemic. Patient feels better than yesterday serum sodium went up to 127 Constitutional: Denied any fatigue denied any fever. Cardio vascular: denied any chest pain, palpitations Gastrointestinal denied any nausea vomiting Pulmonary: Denied any shortness of breath cough Neurologic denied any new focal deficits All inpatient medications were reviewed and appropriate changes in these medications as dictated in the interval history and assessment and plan. 09/15/2019 Patient is seen and evaluated in follow-up today currently sitting at the side of the bed in no acute distress. Patient's blood pressure was found to be 80 systolic although asymptomatic. Patient denies any feelings of dizziness, lightheadedness, chest pains, or feelings of passing out. Patient was found to have a stage II to 3 pressure ulcer on the buttocks during a shower today. Salma ent states that he's had this for quite some time and it doesn't bother him or cause any pain or discomfort at all. Patient states it is most likely due to the fact that he sits in the chair or in the bed most of the day and has for quite some time. Nursing staff is aware and will provide some local wound care. Patient had an ultrasound-guided paracentesis done removing approximately 3.3 L today and tolerated well. Patient states his last paracentesis was approximately one month ago. Patient states he feels much better status post paracentesis. No reports of chest pain, shortness of breath, or palpitations. Patient is afebrile. No reports of nausea or vomiting and patient has been to lerating diet. 09/16/2019 Patient is seen and evaluated in follow-up today sitting up in bed in no acute distress. No acute overnight issues. Patient continues to be hypotensive and midodrine will be increased. Patient's sodium remains at 127 and sodium chloride tabs along with bicarb tablets have been added. Patient remains on lactated Ringer's at 75 ML per hour. Patient is asymptomatic of these low blood pressures and states "I always have low blood pressure". Nephrology is following. Will repeat chest x-ray in the morning and labs. Patient states he would really like to go home. Will continue to monitor closely with possibility of discharge tomorrow. Currently no reports of chest pain, shortness of breath, or palpitations. Patient denies any dizziness, lightheadedness, feelings of passing out. Patient afebrile. No reports of nausea or vomiting and patient is tolerating diet. Patient is admitted for hypovolemic hyponatremia and found to have significant sinus pauses cardiology is following the patient patient is supposed been IV fluids it appears like IV fluids were discontinued last night will be started back on IV fluids will instruct the nursing staff not to stop the IV fluids patient BNP is elevated but patient is not in heart failure patient is actually hypovolemic. Patient feels better than yesterday serum sodium went up to 127 09/17/2019 Patient's serum sodium went down patient will be started back on IV fluids lactated Ringer's will be discontinued and patient was started on normal saline and patient has hyperkalemia we'll give him a dose of Oxalate cosyntropin stim ablation test is being ordered discussed with nephrology. 09/18/2019 Patient is IV fluids were discontinued as patient is gaining weight and third spacing with the edema in the lower abdomen. Patient is receiving Lasix today will see what his serum sodium is cosyntropin stim ablation test is being obtained as well. Had lengthy discussion with the family today and although fe els very well.obtaining a chest x-ray to make sure patient doesn't have any pulmonary edema Constitutional: Denied any fatigue denied any fever. Cardio vascular: denied any chest pain, palpitations Gastrointestinal denied any nausea vomiting Pulmonary: Denied any shortness of breath cough Neurologic denied any new focal deficits 09/19/2019 Patient is seen and evaluated in follow-up today and continues to have hyponatremia and sodium today has worsened and is 125. Nephrology is following. Patient underwent chest x-ray yesterday showing no significant interval change within the appearance of the chest. Per patient patient's shortness of breath has improved and was receiving 40 mg IV Lasix every 8 hours. Patient continues to have hypotension and significant abdominal swelling. Patient was given a dose of tolvaptan and will repeat a.m. labs. Patient currently remains on Eliquis and continues to have extensive bruising and bleeding noted under the skin of the abdomen and left lower extremity. Patient does admit to a recent fall approximately one week ago and did undergo paracentesis almost a week ago as well. Currently no reports of chest pain, shortness of breath, or palpitat ions. Patient is afebrile. No reports of nausea or vomiting and patient is tolerating diet. Per nursing staff patient was given a nitro earlier this morning for some intermittent chest pain which per patient has resolved. 09/20/2019 Patient is seen in follow-up today with slight improvement of the sodium and is 127 today. Oral Lasix will be resumed as patient continues to have extensive edema noted of lower extremities. Underwent ultrasound abdomen yesterday showing ascites fluid reaccumulated and patient will be undergoing a paracentesis on as we need to hold anticoagulation prior to paracentesis. Patient is on Eliquis. Patient remains hypotensive although denies any dizziness, lightheadedness, feelings of passing out. Patient will be given another dose of Samsa. 09/21/2019 Patient is seen and evaluated in follow-up today with sodium of 130 today. Patient remains on oral Lasix twice daily and will continue at this time. Patient continues to be hypotensive although is asymptomatic. Patient was taken off Eliquis as he is to be off 48 hours prior to paracentesis. Patient will be receiving albumin prior to paracentesis on as well as after paracentesis. Nephrology is following. Patient states he was up to the bathroom and took a shower yesterday with the assistance of his family with no issues. Patient denies any feelings of dizziness, lightheadedness, or feelings of passing out. Patient denies any chest pain, palpitations, or shortness of br eath. Patient is afebrile. No reports of nausea or vomiting and patient is tolerating diet. Will continue to monitor closely. Objective - Vital Signs Vital signs: Vital Signs Temp 97.6 F 09/21/19 08:25 Pulse 83 09/21/19 08:25 Resp 16 09/21/19 08:25 BP 92/54 09/21/19 09:14 Pulse Ox 98 09/21/19 08:25 Intake & Output 09/20/19 09/21/19 09/21/19 18:59 06:59 18:59 Intake Total 490 180 240 Balance 490 180 240 Weight 85.2 kg 84.2 kg Intake: IV 10 0.9 10 Oral 480 180 240 Other: Voiding Method Self-Catheterization Self-Catheterization Self-Catheterization # Voids 3 - Exam GENERAL: The patient is alert and oriented x3, sitting up in bed, not in any acute distress. Well developed, well nourished. Temp is 97.6F, pulse is 70, respirations are 16, blood pressure is 92/54, oxygen saturation is 98% on room air. HEENT: Pupils are round and equally reacting to light. EOMI. No scleral icterus. No conjunctival pallor. Normocephalic, atraumatic. No pharyngeal erythema. No thyromegaly. CARDIOVASCULAR: S1 and S2 present. No murmurs, rubs, or gallops. PULMONARY: Chest is clear to auscultation, no wheezing or crackles. ABDOMEN: His abdomen is soft, mild to moderate distention noted, no tenderness noted on palpation. MUSCULOSKELETAL: No joint swelling or deformity. EXTREMITIES: No cyanosis, clubbing, or pedal edema. Mild bilateral lower extremity edema noted NEUROLOGICAL: Gross neurological examination did not reveal any focal deficits. SKIN: No rashes. Bruising discoloration noted of the abdomen and left lower extremity - Labs CBC & Chem 7: 09/21/19 05:55 09/21/19 05:55 Labs: Abnormal Lab Results - Last 24 Hours (Table) 09/21/19 09/21/19 Range/Units 05:55 05:55 RBC 3.80 L (4.30-5.90) m/uL Hgb 12.1 L (13.0-17.5) gm/dL Hct 37.2 L (39.0-53.0) % Lymphocytes # 0.4 L (1.0-4.8) k/uL Sodium 130 L (137-145) mmol/L BUN 66 H (9-20) mg/dL Calcium 8.2 L (8.4-10.2) mg/dL Assessment and Plan Assessment: -Severe hyponatremia appears to be hypovolemic hyponatremia from excessive diuretic therapy. -Bradycardia: Cardiology has evaluated the patient patient does have A. fib patient is in persistent A. fib not on any rate control medications at this time. -Idiopathic cirrhosis -Congestive heart failure chronic diastolic dysfunction secondary to infiltrative cardiomyopathy -Mildly elevated troponins doesn't have any chest pain secondary to acute renal failure, present on admission. Resolved -Acute renal failure: Secondary to excessive diuretic therapy as mentioned -elevated liver enzymes mild elevation secondary to cirrhosis idiopathic in nature -Hypotension: Patient is currently on Midodrine. Nephrology is following. -Persistent A. fib patient is maintained on Eliquis Recommendations and discussion: Recommend to continue current medications, management, and symptomatic treatment. Nephrology is following. Current sodium is 130. Patient was restarted on oral Lasix and will continue to monitor closely. Current creatinine is 0.92. Patient is scheduled to undergo paracentesis tomorrow and has been off Eliquis for the procedure. Due to multiple complex medical issues, prognosis is guarded. Further recommendations to follow. Possible discharge in 24-48 hours.
--- NOTE | 2019-09-21 11:10 | P.PN ---
Subjective Patient is seen in follow-up for hyponatremia. Sodium level is better today. Status post samsca last 2 days. Still quite edematous. Scheduled for paracentesis tomorrow. Vital signs are stable. General: The patient appeared well nourished and normally developed. HEENT: Head exam is unremarkable. Neck is without jugular venous distension. LUNGS: Lungs are clear to auscultation and percussion. Breath sounds decreased. HEART: Rate and Rhythm are regular. First and second heart sounds normal. No murmurs, rubs or gallops. ABDOMEN: Abdominal exam reveals normal bowel sounds. Distention noted. EXTREMITITES: 1+ edema. Objective - Vital Signs Vital signs: Vital Signs Temp 97.6 F 09/21/19 08:25 Pulse 83 09/21/19 08:25 Resp 16 09/21/19 08:25 BP 92/54 09/21/19 09:14 Pulse Ox 98 09/21/19 08:25 Intake & Output 09/20/19 09/21/19 09/21/19 18:59 06:59 18:59 Intake Total 490 180 240 Balance 490 180 240 Weight 85.2 kg 84.2 kg Intake: IV 10 0.9 10 Oral 480 180 240 Other: Voiding Method Self-Catheterization Self-Catheterization Self-Catheterization # Voids 3 - Labs CBC & Chem 7: 09/21/19 05:55 09/21/19 05:55 Labs: Abnormal Lab Results - Last 24 Hours (Table) 09/21/19 09/21/19 Range/Units 05:55 05:55 RBC 3.80 L (4.30-5.90) m/uL Hgb 12.1 L (13.0-17.5) gm/dL Hct 37.2 L (39.0-53.0) % Lymphocytes # 0.4 L (1.0-4.8) k/uL Sodium 130 L (137-145) mmol/L BUN 66 H (9-20) mg/dL Calcium 8.2 L (8.4-10.2) mg/dL Assessment and Plan Plan: Assessment: 1. Hypervolemic hyponatremia. Sodium level 130 today. Status post Samsca last 2 days. 2. Idiopathic cirrhosis. 3. Ascites status post paracentesis with 3.3 L drained this admission. Repeat ultrasound shows ascites again. 4. Metabolic acidosis maintained on oral sodium bicarbonate. 5. Hypotension due to underlying cirrhosis maintained on midodrine. Plan: 1200 mL fluid restriction. Continue Lasix 40 mg orally twice daily. Encourage oral intake, particularly protein. Repeat electrolytes in the morning. Scheduled for paracentesis tomorrow. He is to receive 25 g of albumin prior to paracentesis and another 25 g after paracentesis.
[2019-09-22] MEDS: LEVOTHYROXINE 100 MCG TAB PO SCH (06:28)
[2019-09-22] MEDS: MIDODRINE 5 MG TAB PO SCH ×3 (06:28→15:41)
[2019-09-22] MEDS: LEVOTHYROXINE 75 MCG TAB PO SCH (06:28)
[2019-09-22 06:32] LABS: Potassium 4.4 mmol/L (3.5-5.1)
[2019-09-22 06:33] LABS: INR 1.2 (<1.2); Prothrombin Time 11.7 sec (9.0-12.0)
[2019-09-22] MEDS: ALBUMIN HUMAN 25% 50 ML in EMPTY BAG 1 BAG IVPB SCH ×2 (06:41→08:52)
[2019-09-22] MEDS: ATORVASTATIN 40 MG TAB PO SCH (08:59)
[2019-09-22] MEDS: SODIUM BICARBONATE TAB 650 MG TAB PO SCH (08:59)
[2019-09-22] MEDS: FUROSEMIDE 40 MG TAB PO SCH ×2 (09:00→15:41)
[2019-09-22] MEDS: prednisoLONE ACETATE 1% OPHTH DROPS 5 ML BTL RIGHT EYE SCH (09:01)
[2019-09-22 10:13] VITALS: TEMP 97.8
[2019-09-22 11:54] VITALS: BP 91/58; PULSE 70; RESP 16
--- NOTE | 2019-09-22 12:41 | US ---
Ultrasound-guided paracentesis. DATE OF EXAM: 09/22/2019 CLINICAL HISTORY: Ascites The procedure was discussed with the patient. The risks, complications, benefits, and alternatives we re discussed and any questions were answered. Informed consent was obtained. The patient was placed s upine on the ultrasound table and prepped and draped in the usual sterile fashion. All elements of maximal barrier technique were utilized. Under ultrasound guidance, access into the left lower quadrant was obtained, via the paracentesis catheter system and direct ultrasound guidance . Approximately 3.26 liters of straw-colored fluid was removed. The patient was stable throughout the p rocedure and remained stable upon discharge from Department of Radiology. IMPRESSION: Successful paracentesis under ultrasound guidance.
--- NOTE | 2019-09-22 13:44 | P.DS ---
Providers Date of admission: 09/12/19 16:08 Expected date of discharge: 09/22/19 Attending physician: Oleg Goodwin MD Consults: 09/12/19 16:08 Consult Physician Urgent Consulting Provider: [facility] Consult Reason/Comments: Bradycardia, N STEMI, near syncope Do you want consulting provider notified?: Yes 09/13/19 10:00 Consult Physician Routine Consulting Provider: Mariama Swartz Consult Reason/Comments: hyponatremia Do you want consulting provider notified?: Yes Primary care physician: Angie Palomares Hospital Course: Final diagnosis -Severe hyponatremia appears to be hypovolemic hyponatremia from excessive diuretic therapy. 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 fib patient Discharge disposition Patient is being discharged in a stable condition with guarded prognosis to home and will follow-up with Dr. Palomares in the outpatient setting upon discharge. Patient is agreeable to home care and arrangements have been made with visiting nurses. Patient also instructed to follow-up with cardiology and nephrology in the outpatient setting. Patient will continue on sodium bicarbonate tablets along with Lasix and Aldactone will be resumed. Total time taken is 35 minutes. History of present illness This is an 89-year-old male who was recently admitted for hypovolemic hyponatremia and was found to have significant sinus pauses and was being closely monitored. Patient was seen and evaluated by cardiology and an event monitor was placed and patient will be following up with cardiology in the outpatient setting. Patient also continue to have hypotension and patient will continue on midodrine 10 mg 3 times daily. Patient also has a history of idiopathic cirrhosis and underwent paracentesis initially with 3.3 L removed. Patient continued to have abdominal swelling, distention, and a repeat ultraso und was done showing ascites again and patient underwent paracentesis today with 3.26 L removed. Eliquis was held prior to procedure and patient may resume tomorrow at 2.5 mg daily. Patient received albumin prior to this last paracentesis and also after. Patient will follow-up closely with nephrology in the outpatient setting in 1 week. Patient continues to have hyponatremia and sodium is currently 129 and will be continued on sodium bicarb tablets and his Aldactone will be resumed. It is recommended to have repeat labs in 2-3 days to monitor sodium levels. Discussed with the patient's family at length about close follow-ups with cardiology and nephrology along with Dr. Palomares upon discharge. During hospitalization patient was adamant about going home upon discharge and is now agreeable to have Homecare and visiting nurses have been arranged to meet with the patient at home. Currently no reports of chest pain, shortness of breath, or palpitations. Patient is afebrile. No reports of nausea or vomiting and patient is tolerating diet. Instructed the patient to increase his protein intake. Currently patient's condition is stable and is ready for discharge today. Prognosis. On exam vital signs are stable. Temp is 97.8F, pulse is 70, respirations are 16, blood pressure is 91/58, oxygen saturation is 97% on room air. Cardio S1, S2 are muffled. Respiratory system shows diminished breath sounds at the bases with no wheezing or crackles noted. Abdomen is soft and nontender with some mild distention noted. Nervous system shows no focal deficits. Please refer to medication reconciliation sheet for a list of medications. Patient Condition at Discharge: Fair Plan - Discharge Summary New Discharge Prescriptions: New Furosemide [Lasix] 40 mg PO BID@0900,1600 30 Days #60 tab Midodrine [ProAmatine] 10 mg PO AC-TID 30 Days #180 tab Sodium Bicarbonate Tab 650 mg PO BID 30 Days #60 tab Spironolactone [Aldactone] 25 mg PO BID 30 Days #60 tablet Continue Atorvastatin [Lipitor] 40 mg PO DAILY Levothyroxine Sodium [Synthroid] 175 mcg PO DAILY Prednisolone Acetate/Pf [Prednisolone Acet 1% Eye Drop] 1 drop RIGHT EYE BID Apixaban [Eliquis] 2.5 mg PO DAILY #0 Discontinued Furosemide [Lasix] 60 mg PO BID@0900,1600 Midodrine HCl [ProAmantine] 2.5 mg PO BID Spironolactone [Aldactone] 25 mg PO BID@0900,1600 Discharge Medication List Atorvastatin [Lipitor] 40 mg PO DAILY 05/30/19 [History] Levothyroxine Sodium [Synthroid] 175 mcg PO DAILY 06/02/19 [History] Prednisolone Acetate/Pf [Prednisolone Acet 1% Eye Drop] 1 drop RIGHT EYE BID 09/12/19 [History] Apixaban [Eliquis] 2.5 mg PO DAILY #0 09/22/19 [Rx] Furosemide [Lasix] 40 mg PO BID@0900,1600 30 Days #60 tab 09/22/19 [Rx] Midodrine [ProAmatine] 10 mg PO AC-TID 30 Days #180 tab 09/22/19 [Rx] Sodium Bicarbonate Tab 650 mg PO BID 30 Days #60 tab 09/22/19 [Rx] Spironolactone [Aldactone] 25 mg PO BID 30 Days #60 tablet 09/22/19 [Rx] Follow up Appointment(s)/Referral(s): Mariama Swartz MD [STAFF PHYSICIAN] - 1 Week Angie Palomares MD [Primary Care Provider] - 1-2 days Cole Bucio MD [STAFF PHYSICIAN] - 10/03/19 10:00 am [facility] Visiting Nurse, [NON-STAFF] - Ambulatory/Diagnostic Orders: Comprehensive Metabolic Panel [LAB.AMB] Time Frame: 2 Days, Location: None Selected Patient Instructions/Handouts: Hyponatremia (DC), Syncope (DC), Hypotension (DC), Paracentesis (DC) Activity/Diet/Wound Care/Special Instructions: Activity Limited until follow-up Follow-up with primary care provider upon discharge Continue current low potassium diet Continue with medications as prescribed Hold anticoagulants Eliquis for 09/22/2019 and may resume on 09/23/2019 Repeat labs in 2-3 days Follow-up with cardiology as scheduled Continue with the cardiac event monitor Continue to get up slowly with position changes and weight 1-2 minutes before getting up to a standing position Follow-up with nephrology in one week Wound care of the left buttock ulcer to continue with OptiFoam may change if dressing becomes soiled. Patient instructed to make frequent position changes and keep weight off of the left buttock area. Patient also instructed to increase activity as tolerated and avoid sitting all day. Discharge Disposition: HOME WITH HOME HEALTH SERVICES
--- NOTE | 2019-09-22 18:50 | PN ---
PROGRESS NOTE Patient is seen for followup for hyponatremia. He is status post Samsca for the last 2 days, currently stable for possible discharge today. On examination today, blood pressure remains on the lower side. It was 91/58, heart rate 70 per minute. He is afebrile. EXAMINATION OF THE HEART: S1 and S2. EXAMINATION OF LUNGS: Decreased breath sounds at bases. ABDOMEN: Soft, non-tender. Examination of lower extremities shows no significant edema. 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 ASSESSMENT: 1. Hyponatremia, currently hypervolemic, status post Samsca. Sodium at about 129 to 130 mEq/L. Patient will need close followup as outpatient. He is currently on Lasix, which we can continue. We will likely discontinue the sodium bicarb as outpatient. 2. Ascites, status post paracentesis. 3. Metabolic acidosis, maintained on sodium bicarb. 4. Hypotension, most likely secondary to underlying cirrhosis, maintained on midodrine. PLAN: Continue with Lasix. Okay for discharge. Repeat labs as outpatient in about 2-3 days. Discontinue the sodium bicarb as outpatient. Will see patient back for followup in about one week's time. MMODL / IJN: [id number] /
== END 2019-09-22 15:51 | disposition home health service (06) | DRG 640 ==
LOC: EC 13:24 → 3SCARD 16:08
PROVIDERS: ADMIT Internal Medicine; ATTEND Internal Medicine
PROC: 0W9G3ZZ Drainage of Peritoneal Cavity, Percutaneous Approach (ICD-10-PCS; principal; 2019-09-15)
PROC: 0W9G3ZZ Drainage of Peritoneal Cavity, Percutaneous Approach (ICD-10-PCS; 2019-09-22)
DX: E87.1 Hypo-osmolality and hyponatremia (principal); L89.323 Pressure ulcer of left buttock, stage 3; I42.8 Other cardiomyopathies; I48.19 Other persistent atrial fibrillation; I50.32 Chronic diastolic (congestive) heart failure; N17.9 Acute kidney failure, unspecified; R18.8 Other ascites; E86.1 Hypovolemia; E03.9 Hypothyroidism, unspecified; E78.5 Hyperlipidemia, unspecified; E87.2 Acidosis; E87.5 Hyperkalemia; H91.90 Unspecified hearing loss, unspecified ear; I25.10 Atherosclerotic heart disease of native coronary artery without angina pectoris; I25.2 Old myocardial infarction; I34.0 Nonrheumatic mitral (valve) insufficiency; I49.3 Ventricular premature depolarization; K74.69 Other cirrhosis of liver; N18.3 Chronic kidney disease, stage 3 (moderate); S41.111A Laceration without foreign body of right upper arm, initial encounter; S51.012A Laceration without foreign body of left elbow, initial encounter; W19.XXXA Unspecified fall, initial encounter; X50.1XXA Overexertion from prolonged static or awkward postures, initial encounter; Y92.009 Unspecified place in unspecified non-institutional (private) residence as the place of occurrence of the external cause; Z79.01 Long term (current) use of anticoagulants; Z79.890 Hormone replacement therapy; Z79.899 Other long term (current) drug therapy; Z80.0 Family history of malignant neoplasm of digestive organs; Z96.652 Presence of left artificial knee joint; R29.6 Repeated falls; Z91.81 History of falling; Z94.7 Corneal transplant status; T50.2X1A Poisoning by carbonic-anhydrase inhibitors, benzothiadiazides and other diuretics, accidental (unintentional), initial encounter; R79.89 Other specified abnormal findings of blood chemistry; I95.9 Hypotension, unspecified
CPT/HCPCS: 36415; 49083; 70450; 71045; 71046; 72125; 76705; 80048; 80053; 80061; 81001; 82024; 82533; 82570; 83735; 83880; 83930; 83935; 84133; 84295; 84300; 84443; 84484; 85025; 85610; 85730; 90471; 90715; 93005; 93270; 99291

== ENCOUNTER 2019-09-27 05:15 | Emergency (ER) | payer MEDICARE ==
[2019-09-27 05:24] VITALS: TEMP 97.7
--- NOTE | 2019-09-27 05:31 | ED ---
Abdominal Pain HPI - General Source: patient Mode of arrival: EMS - History of Present Illness Complaint: abdominal pain Onset/Timin -: hour(s) Location: RUQ Radiation: none Migration to: no migration Severity: severe Quality: sharp Consistency: now resolved Improves With: nothing Worsens With: nothing Associated Symptoms: nausea <Estiven Tyler - Last Filed: 09/27/19 07:42> <Jose Colin - Last Filed: 09/27/19 08:05> - General Chief Complaint: Abdominal Pain Stated Complaint: abd pain Time Seen by Provider: 09/27/19 05:20 - History of Present Illness Initial Comments: This patient is an 89-year-old man recently diagnosed with idiopathic cirrhosis, who presents to be evaluated for acute onset of right-sided abdominal pain. Patient states that it woke him from sleep a number of hours ago. He calls it a gallbladder attack and states that he has had this really sleep. He also is having nausea vomiting. The patient states that his symptoms already are much better. At the onset the symptoms were severe, now it is down to mild to moderate. He is declining analgesic or antiemetic at initial history and physical. (Estiven Tyler) - Related Data Home Medications Medication Instructions Recorded Confirmed Atorvastatin [Lipitor] 40 mg PO DAILY 05/30/19 09/12/19 Levothyroxine Sodium [Synthroid] 175 mcg PO DAILY 06/02/19 09/12/19 Prednisolone Acetate/Pf 1 drop RIGHT EYE BID 09/12/19 09/14/19 [Prednisolone Acet 1% Eye Drop] Previous Rx's Medication Instructions Recorded Apixaban [Eliquis] 2.5 mg PO DAILY #0 09/22/19 Furosemide [Lasix] 40 mg PO BID@0900,1600 30 Days #60 09/22/19 tab Midodrine [ProAmatine] 10 mg PO AC-TID 30 Days #180 tab 09/22/19 Sodium Bicarbonate Tab 650 mg PO BID 30 Days #60 tab 09/22/19 Spironolactone [Aldactone] 25 mg PO BID 30 Days #60 tablet 09/22/19 Amoxic-Pot Clav 875-125Mg 1 tab PO BID 10 Days #20 tab 09/27/19 [Augmentin 875-125] Allergies Allergy/AdvReac Type Severity Reaction Status Date / Time No Known Allergies Allergy Verified 09/27/19 05:32 Review of Systems ROS Other: All systems not noted in ROS Statement are negative. Constitutional: Denies: fever, chills Respiratory: Denies: cough, dyspnea Cardiovascular: Denies: chest pain Gastrointestinal: Reports: as per HPI, abdominal pain, nausea. Denies: diarrhea, constipation Genitourinary: Denies: dysuria, hematuria Musculoskeletal: Denies: back pain Skin: Denies: rash Neurological: Denies: headache, weakness <JaysonEstiven - Last Filed: 09/27/19 07:42> ROS Other: All systems not noted in ROS Statement are negative. <Jose Colin - Last Filed: 09/27/19 08:05> ROS Statement: Those systems with pertinent positive or pertinent negative responses have been documented in the HPI. Past Medical History Past Medical History: Atrial Fibrillation, Chest Pain / Angina, Heart Failure, Eye Disorder, Hearing Disorder / Deafness, Liver Disease, Myocardial Infarction ([place]), Osteoarthritis (OA), Syncope, Thyroid Disorder Additional Past Medical History / Comment(s): Self catheterization , LEAKY HEART VALVES, sinus drainage. Had Rt eye surg 06/01/19, "membrane not sealing completely." Last Myocardial Infarction Date:: 02/2018 History of Any Multi-Drug Resistant Organisms: None Reported Past Surgical History: Heart Catheterization, Hernia Repair, Orthopedic Surgery Additional Past Surgical History / Comment(s): left knee replacement, back surgery, prostate surgery. RT Eye Keratoplasty. 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 Past Anesthesia/Blood Transfusion Reactions: No Reported Reaction Past Psychological History: No Psychological Hx Reported Smoking Status: Never smoker Past Alcohol Use History: None Reported Past Drug Use History: None Reported - Past Family History Father Family Medical History: Cancer Additional Family Medical History / Comment(s): pancreas/liver cancer Daughter(s) Family Medical History: Cancer Additional Family Medical History / Comment(s): perineal CA Brca1 gene Mother Family Medical History: No Reported History <JaysonEstiven - Last Filed: 09/27/19 07:42> General Exam General appearance: alert, in no apparent distress Head exam: Present: atraumatic, normocephalic Eye exam: Present: normal appearance. Absent: scleral icterus, conjunctival injection ENT exam: Present: normal oropharynx Respiratory exam: Present: normal lung sounds bilaterally. Absent: respiratory distress, wheezes, rales, rhonchi, stridor Cardiovascular Exam: Present: regular rate, normal rhythm, normal heart sounds. Absent: systolic murmur, diastolic murmur, rubs, gallop GI/Abdominal exam: Present: soft, tenderness (Mild right upper quadrant tenderness). Absent: distended, guarding, rebound, rigid, mass, pulsatile mass Extremities exam: Present: normal inspection, normal capillary refill. Absent: pedal edema, calf tenderness Back exam: Present: normal inspection Skin exam: Present: warm, dry, intact, normal color. Absent: rash <Estiven Tyler - Last Filed: 09/27/19 07:42> Course Vital Signs 09/27/19 09/27/19 05:20 06:00 Temperature 97.7 F Pulse Rate 84 82 Respiratory 18 16 Rate Blood Pressure 93/65 103/66 O2 Sat by Pulse 95 95 Oximetry Medical Decision Making - Lab Data Result diagrams: 09/27/19 05:20 09/27/19 05:20 - EKG Data -: EKG Interpreted by Me EKG shows normal: axis (Normal), intervals (Normal) Interpretation: other (Underlying rhythm appears to be atrial fibrillation with rate proximal 79 bpm) <Estiven Tyler - Last Filed: 09/27/19 07:42> - Lab Data Result diagrams: 09/27/19 05:20 09/27/19 05:20 <Jose Colin - Last Filed: 09/27/19 08:05> - Medical Decision Making Patient is signed out to me by previous shift physician Dr. Hampton. Briefly, patient is a 89-year-old male is in the emergency department today for right upper quadrant abdominal pain. Patient reports that he has this chronically and intermittently. He was told by his primary care physician that the definitive treatment would be cholecystectomy however he was told he is not a candidate for surgery. CBC does not show any leukocytosis. Patient's sodium of 125. BUN 70, creatinine 0.9. AST 75. Alk phos 279. Lipase is 526. Urinalysis shows 40 white blood cells. Plan sign out was to follow up with CT of the abdomen and pelvis and to determine final disposition. CT was obtained showing moderate to large amount of ascitic fluid. There is also a large gallstone with contracted gallbladder with thickening and enhancement could represent acute cholecystitis. These results were discussed with patient. He still days he is hyponatremic and dehydrated he is also told that he has possible acute cholecystitis. He denies any pain complaints at this time. He states he feels at baseline. Recommended to him that he be admitted to the hospital. Patient understands the risks of leaving. He is at her bedside trying to also help convince patient to stay in the hospital however he refused. He understands that there could be potentially a life-threatening infection that could lead to morbidity and mortality. Patient understands and agrees. He is given antibiotics to take. Pending urine cultures. Skin follow up with outpatient general surgery.IMELDA virk cro Risks, Benefits, and Treatment alternatives were discussed in detail with the patient. The patient is alert and oriented X 3 and has the capacity to make an informed decision. The risks of increased morbidity including the possibly of were explained to and understood by the patient who is choosing to leave against medical advice. The patient is encouraged to return any time should they want further treatment and diagnostic investigation. (Jose Colin) - Lab Data Lab Results 09/27/19 09/27/19 09/27/19 Range/Units 05:20 05:20 06:36 WBC 6.3 (3.8-10.6) k/uL RBC 3.84 L (4.30-5.90) m/uL Hgb 12.4 L (13.0-17.5) gm/dL Hct 37.5 L (39.0-53.0) % MCV 97.5 (80.0-100.0) fL MCH 32.2 (25.0-35.0) pg MCHC 33.0 (31.0-37.0) g/dL RDW 14.1 (11.5-15.5) % Plt Count 185 (150-450) k/uL Neutrophils % 81 % Lymphocytes % 6 % Monocytes % 7 % Eosinophils % 2 % Basophils % 1 % Neutrophils # 5.1 (1.3-7.7) k/uL Lymphocytes # 0.4 L (1.0-4.8) k/uL Monocytes # 0.5 (0-1.0) k/uL Eosinophils # 0.1 (0-0.7) k/uL Basophils # 0.0 (0-0.2) k/uL Sodium 125 L (137-145) mmol/L Potassium 4.3 (3.5-5.1) mmol/L Chloride 94 L (98-107) mmol/L Carbon Dioxide 22 (22-30) mmol/L Anion Gap 9 mmol/L BUN 70 H (9-20) mg/dL Creatinine 0.90 (0.66-1.25) mg/dL Est GFR (CKD-EPI)AfAm 87 (>60 ml/min/1.73 sqM) Est GFR (CKD-EPI)NonAf 75 (>60 ml/min/1.73 sqM) Glucose 121 H (74-99) mg/dL Calcium 8.1 L (8.4-10.2) mg/dL Total Bilirubin 2.3 H (0.2-1.3) mg/dL AST 75 H (17-59) U/L ALT 45 (4-49) U/L Alkaline Phosphatase 279 H (38-126) U/L Total Protein 5.6 L (6.3-8.2) g/dL Albumin 3.0 L (3.5-5.0) g/dL Amylase 67 (30-110) U/L Lipase 526 H (23-300) U/L Urine Color Yellow Urine Appearance Clear (Clear) Urine pH 5.0 (5.0-8.0) Ur Specific [place] 1.015 (1.001-1.035) Urine Protein Trace H (Negative) Urine Glucose (UA) Negative (Negative) Urine Ketones Negative (Negative) Urine Blood Trace H (Negative) Urine Nitrite Negative (Negative) Urine Bilirubin Negative (Negative) Urine Urobilinogen <2.0 (<2.0) mg/dL Ur Leukocyte Esterase Large H (Negative) Urine RBC 1 (0-5) /hpf Urine WBC 40 H (0-5) /hpf Ur Squamous Epith Cells <1 (0-4) /hpf Urine Bacteria Moderate H (None) /hpf Urine Mucus Rare H (None) /hpf Disposition <Estiven Tyler - Last Filed: 09/27/19 07:42> Is patient prescribed a controlled substance at d/c from ED?: No Time of Disposition: 08:05 <Jose Colin - Last Filed: 09/27/19 08:05> Clinical Impression: Abdominal pain Disposition: Left Against Medical Advice Condition: Fair Instructions (If sedation given, give patient instructions): Abdominal Pain (ED) Prescriptions: Amoxic-Pot Clav 875-125Mg [Augmentin 875-125] 1 tab PO BID 10 Days #20 tab Referrals: Angie Palomares MD [Primary Care Provider] - 1-2 days Manish Kay MD [STAFF PHYSICIAN] - 1-2 days
[2019-09-27 06:06] LABS: Calcium 8.1 mg/dL (8.4-10.2); Potassium 4.3 mmol/L (3.5-5.1); Total Bilirubin 2.3 mg/dL (0.2-1.3); Total Protein 5.6 g/dL (6.3-8.2)
[2019-09-27 06:42] LABS: Basophils % (A) 1 %; Eosinophils # (A) 0.1 k/uL (0-0.7); Eosinophils % (A) 2 %; HCT 37.5 % (39.0-53.0); HGB 12.4 gm/dL (13.0-17.5); Lymphocytes # (A) 0.4 k/uL (1.0-4.8); Lymphocytes % (A) 6 %; MCH 32.2 pg (25.0-35.0); MCV 97.5 fL (80.0-100.0); Mean Platelet Volume 7.5; Monocytes # (A) 0.5 k/uL (0-1.0); Monocytes % (A) 7 %; Neutrophils # (A) 5.1 k/uL (1.3-7.7); Neutrophils % (A) 81 %; Platelet Count 185 k/uL (150-450); RBC 3.84 m/uL (4.30-5.90); RDW 14.1 % (11.5-15.5); WBC 6.3 k/uL (3.8-10.6)
[2019-09-27 07:17] LABS: Appearance,Urine Clear (Clear); Bacteria,Urine Moderate /hpf; Bilirubin,Urine Negative (Negative); Blood,Urine Trace (Negative); Color,Urine Yellow; Glucose,Urine (UA) Negative (Negative); Ketones,Urine Negative (Negative); Leukocyte Esterase,Urine Large (Negative); Mucus,Urine Rare /hpf; Nitrite,Urine Negative (Negative); Protein,Urine Trace (Negative); RBC,Urine 1 /hpf (0-5); Specific Gravity,Urine 1.015 (1.001-1.035); Squamous Epithelial Cell,Urine <1 /hpf (0-4); Urobilinogen,Urine <2.0 mg/dL (<2.0); WBC,Urine 40 /hpf (0-5)
--- NOTE | 2019-09-27 07:44 | CT ---
EXAMINATION TYPE: CT abdomen pelvis w con DATE OF EXAM: 09/27/2019 COMPARISON: CT abdomen and pelvis August 06, 2018 HISTORY: RUQ pain, history of cirrhosis and recurrent ascites. CT DLP: 1282.9 mGycm, Automated Exposure Control for Dose Reduction was Utilized. CONTRAST: CT scan of the abdomen and pelvis is performed without oral but with IV Contrast, patient injected wi th 100 mL of Isovue 300. FINDINGS: LUNG BASES: Suspect rounded left-sided gynecomastia on axial image 1. Persistent cardiomegaly. Stable small pericardial effusion. Trace bilateral effusions current study improved from prior. Stable 1.2 cm right middle lobe calcified nodule or granuloma. LIVER/GB: Persistent small size heterogeneous liver with lobulated peripheral margin consistent with underlying cirrhosis. Large 2.9 cm calcified gallstone within slightly contracted gallbladder on curr ent study that has mild wall thickening and mural enhancement. PANCREAS: No significant abnormality is seen. SPLEEN: Spleen size remains within normal limits. ADRENALS: Stable slight thickening to left adrenal gland. KIDNEYS: Symmetric cortical medullary uptake and excretion without hydronephrosis seen bilaterally. B ladder not greatly distended coronal image 66 in the anterior lower pelvis. BOWEL: Suboptimal evaluation of bowel without enteric contrast. No suspicious small or large bowel di latation. Stomach poorly distended and thus suboptimally evaluated. Areas of mild wall thickening thr oughout jejunal loops in the left abdomen felt present. PROSTATE/SEMINAL VESICLES: No gross abnormality seen. LYMPH NODES: No greater than 1cm abdominal or pelvic lymph nodes are appreciated. OSSEOUS STRUCTURES: Redemonstration of underlying levoconvex scoliosis centered at L2 level. Reversal of normal lumbar curvature on sagittal images. Multilevel bilateral laminectomy defects and spinous process resection. Demineralization with moderate narrowing of both hip joints. Stable well-defined l ytic lesion left iliac bone with internal septations and thin sclerotic margin of uncertain etiology. OTHER: Recurrent moderate to large amount of abdominal and pelvic ascites increased from prior CT. Mo derate calcified plaque of the aorta extends into branch vessels. New moderate to severe diffuse soft tissue anasarca. Moderate-sized left inguinal hernia containing fluid or ascites. IMPRESSION: Recurrent moderate to large amount of abdominal and pelvic ascites in patient with known cirrhosis and recurrent ascites. Large gallstone and somewhat contracted gallbladder that has mild ga llbladder wall thickening and mural enhancement, findings could be product of underlying liver diseas e but in patient with acute onset right upper quadrant pain acute cholecystitis cannot be excluded an d needs to be considered.
[2019-09-27 09:22] VITALS: BP 99/73; PULSE 65; RESP 18
== END 2019-09-27 08:44 | disposition left against medical advice (07) ==
LOC: EC 05:15
DX: K80.20 Calculus of gallbladder without cholecystitis without obstruction (principal); R18.8 Other ascites; E87.1 Hypo-osmolality and hyponatremia; E86.0 Dehydration; R82.998 Other abnormal findings in urine; K74.60 Unspecified cirrhosis of liver; I48.91 Unspecified atrial fibrillation; I25.2 Old myocardial infarction; I50.9 Heart failure, unspecified; E07.9 Disorder of thyroid, unspecified; Z79.890 Hormone replacement therapy; Z79.01 Long term (current) use of anticoagulants; Z79.899 Other long term (current) drug therapy; Z79.52 Long term (current) use of systemic steroids; Z95.5 Presence of coronary angioplasty implant and graft; Z96.652 Presence of left artificial knee joint; Z53.20 Procedure and treatment not carried out because of patient's decision for unspecified reasons
CPT/HCPCS: 36415; 80053; 82150; 83690; 85025; 81001; 74177; 99284; Q9967

== ENCOUNTER 2019-12-05 08:31 | Observation (INO) | payer MEDICARE ==
--- NOTE | 2019-12-05 09:02 | ED ---
Abdominal Pain HPI - General Chief Complaint: Abdominal Pain Stated Complaint: water retention Time Seen by Provider: 12/05/19 08:40 Source: patient, RN notes reviewed, old records reviewed Mode of arrival: wheelchair Limitations: no limitations - History of Present Illness Initial Comments: Patient is a 89-year-old male who presents today with concern for fluid overload. Patient reports that he has had abdominal distention, and complains of some shortness of breath with the distention. Patient reports that he last had paracentesis a few Weeks ago however he has not been able to have this scheduled out patiently due to COVID 19 crisis. He's had this increased pain and distention and a harder time with breathing due to this overload. Patient reports that he did not eat today and stopped his blood thinner for the past 2 days as he hopes that he can have the procedure and go home today. - Related Data Home Medications Medication Instructions Recorded Confirmed Atorvastatin [Lipitor] 40 mg PO DAILY 05/30/19 09/12/19 Levothyroxine Sodium [Synthroid] 175 mcg PO DAILY 06/02/19 09/12/19 Prednisolone Acetate/Pf 1 drop RIGHT EYE BID 09/12/19 09/14/19 [Prednisolone Acet 1% Eye Drop] Previous Rx's Medication Instructions Recorded Apixaban [Eliquis] 2.5 mg PO DAILY #0 09/22/19 Furosemide [Lasix] 40 mg PO BID@0900,1600 30 Days #60 09/22/19 tab Midodrine [ProAmatine] 10 mg PO AC-TID 30 Days #180 tab 09/22/19 Sodium Bicarbonate Tab 650 mg PO BID 30 Days #60 tab 09/22/19 Spironolactone [Aldactone] 25 mg PO BID 30 Days #60 tablet 09/22/19 Amoxic-Pot Clav 875-125Mg 1 tab PO BID 10 Days #20 tab 09/27/19 [Augmentin 875-125] Allergies Allergy/AdvReac Type Severity Reaction Status Date / Time No Known Allergies Allergy Verified 12/05/19 08:33 Review of Systems ROS Statement: Those systems with pertinent positive or pertinent negative responses have been documented in the HPI. ROS Other: All systems not noted in ROS Statement are negative. Past Medical History Past Medical History: Atrial Fibrillation, Chest Pain / Angina, Heart Failure, Eye Disorder, Hearing Disorder / Deafness, Liver Disease, Myocardial Infarction ([place]), Osteoarthritis (OA), Syncope, Thyroid Disorder Additional Past Medical History / Comment(s): Self catheterization , LEAKY HEART VALVES, sinus drainage. Had Rt eye surg 06/01/19, "membrane not sealing completely." Last Myocardial Infarction Date:: 02/2018 History of Any Multi-Drug Resistant Organisms: None Reported Past Surgical History: Heart Catheterization, Hernia Repair, Orthopedic Surgery Additional Past Surgical History / Comment(s): left knee replacement, back surgery, prostate surgery. RT Eye Keratoplasty. 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 Past Anesthesia/Blood Transfusion Reactions: No Reported Reaction Past Psychological History: No Psychological Hx Reported Smoking Status: Never smoker Past Alcohol Use History: None Reported Past Drug Use History: None Reported - Past Family History Father Family Medical History: Cancer Additional Family Medical History / Comment(s): pancreas/liver cancer Daughter(s) Family Medical History: Cancer Additional Family Medical History / Comment(s): perineal CA Brca1 gene Mother Family Medical History: No Reported History General Exam - General Exam Comments Initial Comments: This is an 89-year-old male. Alert and oriented 3. No distress. Limitations: no limitations General appearance: alert, in no apparent distress Head exam: Present: atraumatic Eye exam: Present: normal appearance, PERRL, EOMI. Absent: scleral icterus, conjunctival injection, periorbital swelling ENT exam: Present: normal exam, mucous membranes moist Neck exam: Present: normal inspection. Absent: tenderness, meningismus, lymphadenopathy Respiratory exam: Present: normal lung sounds bilaterally. Absent: respiratory distress, wheezes, rales, rhonchi, stridor Cardiovascular Exam: Present: regular rate, normal rhythm, normal heart sounds. Absent: systolic murmur, diastolic murmur, rubs, gallop, clicks GI/Abdominal exam: Present: soft, tenderness (distension), normal bowel sounds. Absent: distended, guarding, rebound, rigid Extremities exam: Present: normal inspection, full ROM, normal capillary refill, other (1+ edema bilaterally). Absent: tenderness, pedal edema, joint swelling, calf tenderness Back exam: Present: normal inspection Neurological exam: Present: alert, oriented X3, CN II-XII intact Psychiatric exam: Present: normal affect, normal mood Skin exam: Present: warm, dry, intact, normal color. Absent: rash Course Vital Signs 12/05/19 12/05/19 08:33 09:30 Temperature 98.1 F Pulse Rate 60 75 Respiratory 18 25 H Rate Blood Pressure 120/75 106/79 O2 Sat by Pulse 97 95 Oximetry Medical Decision Making - Medical Decision Making Patient is an 89-year-old male who presents with fluid overload, and abdominal distention. Patient denies any localized abdominal pain this time just complains of discomfort with distention. He also does report that he's had some lower extremity edema. He does have 1+ pitting edema bilaterally. Lungs are clear to auscultation. He does state it is difficult for him to breathe just due to the pressure on his abdomen from ascites and fluid overload. At this time patient's labwork was reviewed. He does have an elevated BUN of 77. This is relatively stable from previous visits and slightly increased. Patient was also found to have elevated troponin of 0.2. However this is also stable with no acute chest pain at this time, and chronic. As Patient has stopped his blood thinner for the past 2 days and preparing for possible paracentesis. I discussed the case with patient's daughters in the room and is agreeable to have the Patient admitted at this time for 24-hour observation, repeat her as well as consult interventional radiology. - Lab Data Result diagrams: 12/05/19 09:00 12/05/19 09:00 Lab Results 12/05/19 12/05/19 12/05/19 Range/Units 09:00 09:00 09:00 WBC 4.9 (3.8-10.6) k/uL RBC 4.26 L (4.30-5.90) m/uL Hgb 13.3 (13.0-17.5) gm/dL Hct 41.6 (39.0-53.0) % MCV 97.6 (80.0-100.0) fL MCH 31.3 (25.0-35.0) pg MCHC 32.0 (31.0-37.0) g/dL RDW 13.2 (11.5-15.5) % Plt Count 170 (150-450) k/uL Neutrophils % 77 % Lymphocytes % 10 % Monocytes % 8 % Eosinophils % 2 % Basophils % 1 % Neutrophils # 3.7 (1.3-7.7) k/uL Lymphocytes # 0.5 L (1.0-4.8) k/uL Monocytes # 0.4 (0-1.0) k/uL Eosinophils # 0.1 (0-0.7) k/uL Basophils # 0.0 (0-0.2) k/uL PT 11.8 (9.0-12.0) sec INR 1.2 H (<1.2) APTT 25.6 (22.0-30.0) sec Sodium 131 L (137-145) mmol/L Potassium 4.9 (3.5-5.1) mmol/L Chloride 96 L (98-107) mmol/L Carbon Dioxide 22 (22-30) mmol/L Anion Gap 13 mmol/L BUN 77 H (9-20) mg/dL Creatinine 0.90 (0.66-1.25) mg/dL Est GFR (CKD-EPI)AfAm 87 (>60 ml/min/1.73 sqM) Est GFR (CKD-EPI)NonAf 75 (>60 ml/min/1.73 sqM) Glucose 98 (74-99) mg/dL Calcium 9.0 (8.4-10.2) mg/dL Magnesium 2.4 H (1.6-2.3) mg/dL Total Bilirubin 2.3 H (0.2-1.3) mg/dL AST 68 H (17-59) U/L ALT 39 (4-49) U/L Alkaline Phosphatase 314 H (38-126) U/L Troponin I (0.000-0.034) ng/mL NT-Pro-B Natriuret Pep pg/mL Total Protein 7.3 (6.3-8.2) g/dL Albumin 3.9 (3.5-5.0) g/dL Lipase (23-300) U/L 12/05/19 12/05/19 12/05/19 Range/Units 09:00 09:00 09:00 WBC (3.8-10.6) k/uL RBC (4.30-5.90) m/uL Hgb (13.0-17.5) gm/dL Hct (39.0-53.0) % MCV (80.0-100.0) fL MCH (25.0-35.0) pg MCHC (31.0-37.0) g/dL RDW (11.5-15.5) % Plt Count (150-450) k/uL Neutrophils % % Lymphocytes % % Monocytes % % Eosinophils % % Basophils % % Neutrophils # (1.3-7.7) k/uL Lymphocytes # (1.0-4.8) k/uL Monocytes # (0-1.0) k/uL Eosinophils # (0-0.7) k/uL Basophils # (0-0.2) k/uL PT (9.0-12.0) sec INR (<1.2) APTT (22.0-30.0) sec Sodium (137-145) mmol/L Potassium (3.5-5.1) mmol/L Chloride (98-107) mmol/L Carbon Dioxide (22-30) mmol/L Anion Gap mmol/L BUN (9-20) mg/dL Creatinine (0.66-1.25) mg/dL Est GFR (CKD-EPI)AfAm (>60 ml/min/1.73 sqM) Est GFR (CKD-EPI)NonAf (>60 ml/min/1.73 sqM) Glucose (74-99) mg/dL Calcium (8.4-10.2) mg/dL Magnesium (1.6-2.3) mg/dL Total Bilirubin (0.2-1.3) mg/dL AST (17-59) U/L ALT (4-49) U/L Alkaline Phosphatase (38-126) U/L Troponin I 0.217 H* (0.000-0.034) ng/mL NT-Pro-B Natriuret Pep 5280 pg/mL Total Protein (6.3-8.2) g/dL Albumin (3.5-5.0) g/dL Lipase 531 H (23-300) U/L 12/05/19 09:22 EKG shows atrial fibrillation, incomplete right bundle branch block. Possible right ventricular hypertrophy. Anterolateral infarct age undetermined. Ventricular rate of 70 beats were minute. Verbal is undetected. She amish is 96 most seconds. QT QTc is 390/453 ms. - Radiology Data Radiology results: report reviewed Chronic changes and cardiomegaly without acute cardiopulmonary process on chest x-ray. Disposition Clinical Impression: Decompensation of cirrhosis of liver, Abdominal distension, Elevated liver enzymes, Elevated troponin Disposition: ADMITTED IP TO THIS HOSP Condition: Stable Is patient prescribed a controlled substance at d/c from ED?: No Referrals: Angie Palomares MD [Primary Care Provider] - 1-2 days Time of Disposition: 10:33
[2019-12-05 09:33] LABS: Basophils % (A) 1 %; Eosinophils # (A) 0.1 k/uL (0-0.7); Eosinophils % (A) 2 %; HCT 41.6 % (39.0-53.0); HGB 13.3 gm/dL (13.0-17.5); Lymphocytes # (A) 0.5 k/uL (1.0-4.8); Lymphocytes % (A) 10 %; MCH 31.3 pg (25.0-35.0); MCV 97.6 fL (80.0-100.0); Mean Platelet Volume 7.5; Monocytes # (A) 0.4 k/uL (0-1.0); Monocytes % (A) 8 %; Neutrophils # (A) 3.7 k/uL (1.3-7.7); Neutrophils % (A) 77 %; Platelet Count 170 k/uL (150-450); RBC 4.26 m/uL (4.30-5.90); RDW 13.2 % (11.5-15.5); WBC 4.9 k/uL (3.8-10.6)
--- NOTE | 2019-12-05 09:36 | XR ---
EXAMINATION TYPE: XR KUB DATE OF EXAM: 12/05/2019 COMPARISON: NONE HISTORY: Pain TECHNIQUE: Single supine KUB image of the abdomen is obtained FINDINGS: Small bowel demonstrates no evidence for dilatation or air fluid levels. Gas and fecal material is seen in non-distended colon. No convincing evidence for pneumoperitoneum. No unusual calcifications. The lung bases are clear. The osseous structures are intact. IMPRESSION: 1. Overall nonobstructive bowel gas pattern.
--- NOTE | 2019-12-05 09:38 | XR ---
EXAMINATION TYPE: XR chest 2V DATE OF EXAM: 12/05/2019 COMPARISON: Chest x-ray September 18, [address] chest March 22, 2018 HISTORY: Chest pain. TECHNIQUE: Frontal and lateral views of the chest are obtained. FINDINGS: There is chronic parenchymal change with stable 1.6 cm right middle lobe calcified nodule o r granuloma. There is no new suspicious focal air space opacity, pleural effusion, or pneumothorax se en. The cardiac silhouette size remains enlarged with ectatic thoracic aorta. The osseous structur es are demineralized. IMPRESSION: Chronic changes and cardiomegaly without acute pulmonary process.
[2019-12-05 09:41] LABS: INR 1.2 (<1.2); Partial Thromboplastin Time 25.6 sec (22.0-30.0); Prothrombin Time 11.8 sec (9.0-12.0)
[2019-12-05 09:45] LABS: Albumin 3.9 g/dL (3.5-5.0); Magnesium 2.4 mg/dL (1.6-2.3); Potassium 4.9 mmol/L (3.5-5.1); Total Bilirubin 2.3 mg/dL (0.2-1.3); Total Protein 7.3 g/dL (6.3-8.2)
[2019-12-05] MEDS ORDERED: ACETAMINOPHEN TAB 325 MG TAB PO PRN (10:33)
[2019-12-05] MEDS ORDERED: HYDROcodone/APAP 5-325MG 1 EACH TAB PO PRN (10:33)
[2019-12-05] MEDS ORDERED: MORPHINE SULFATE 4 MG/ML SYRINGE IV PRN (10:33)
[2019-12-05] MEDS ORDERED: IBUPROFEN 400 MG TAB PO PRN (10:33)
[2019-12-05] MEDS ORDERED: NALOXONE 0.4 MG/ML 1 ML VIAL IV PRN (10:33)
[2019-12-05] MEDS ORDERED: ONDANSETRON 4 MG/2 ML VIAL IVP PRN (10:33)
[2019-12-05] MEDS: SODIUM CHLORIDE 0.9% 1,000 ML IV SCH (17:55)
[2019-12-06] MEDS: ALBUMIN HUMAN 25% 50 ML in EMPTY BAG 1 BAG IVPB SCH ×2 (00:30→02:00)
--- NOTE | 2019-12-06 00:42 | P.HPIM ---
History of Present Illness H&P Date: 12/05/19 Chief Complaint: Abd. distension Patient is a 89-year-old male with a known history of liver cirrhosis, chronic CHF, history of CT, atrial fibrillation on anticoagulation with Eliquis, hypothyroidism, osteoarthritis came. With the complaints of abdominal distentio n and shortness of breath along with distention.Patient reports that he last had paracentesis a few Weeks ago however he has not been able to have this scheduled out patiently due to COVID 19 crisis. He's had this increased pain and distention and a harder time with breathing due to this overload. Patient reports that he did not eat today and stopped his blood thinner for the past 2 days as he hopes that he can have the procedure and go home today. Otherwise denied any complaints of chest pain. No nausea vomiting or abdominal pain or diarrhea. Denied any leg swelling. No palpitations. No complaints of fever or chills. No cough or sputum production. Denies any si ck contacts. KUB x-ray showed overall nonobstructive bowel gas pattern Chest x-ray showed chronic changes and cardiomegaly without acute pulmonary process. Laboratory data showed hemoglobin 13.3, sodium 131, chloride 96, BUN 77 and creatinine 0.9 Magnesium 2.4, total bilirubin 2.3, AST 68 and ALT 39 alk phos 314 Troponin 0 0.217 proBNP 5280 COVID-19 negative Lipase level 531 Past Medical History Past Medical History: Atrial Fibrillation, Chest Pain / Angina, Heart Failure, Eye Disorder, Hearing Disorder / Deafness, Liver Disease, Myocardial Infarction ([place]), Osteoarthritis ([place]), Syncope, Thyroid Disorder Additional Past Medical History / Comment(s): Self catheterization , LEAKY HEART VALVES, sinus drainage. Had Rt eye surg 06/01/19, "membrane not sealing completely." Last Myocardial Infarction Date:: 02/2018 History of Any Multi-Drug Resistant Organisms: None Reported Past Surgical History: Heart Catheterization, Hernia Repair, Orthopedic Surgery Additional Past Surgical History / Comment(s): left knee replacement, back surgery, prostate surgery. RT Eye Keratoplasty. 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 Past Anesthesia/Blood Transfusion Reactions: No Reported Reaction Past Psychological History: No Psychological Hx Reported Smoking Status: Never smoker Past Alcohol Use History: None Reported Past Drug Use History: None Reported - Past Family History Father Family Medical History: Cancer Additional Family Medical History / Comment(s): pancreas/liver cancer Daughter(s) Family Medical History: Cancer Additional Family Medical History / Comment(s): perineal CA Brca1 gene Mother Family Medical History: No Reported History Medications and Allergies Home Medications Medication Instructions Recorded Confirmed Type Atorvastatin [Lipitor] 40 mg PO DAILY@0900 05/30/19 12/05/19 History Levothyroxine Sodium [Synthroid] 175 mcg PO DAILY@0900 06/02/19 12/05/19 History Prednisolone Acetate/Pf 1 drop RIGHT EYE BID@0900,2100 09/12/19 12/05/19 History [Prednisolone Acet 1% Eye Drop] Furosemide [Lasix] 40 mg PO BID@0900,1600 30 Days #60 09/22/19 12/05/19 Rx tab Apixaban [Eliquis] 2.5 mg PO DAILY@0900 12/05/19 12/05/19 History Midodrine [ProAmatine] 10 mg PO TID@0900,1200,1600 12/05/19 12/05/19 History Sodium Bicarbonate Tab 650 mg PO BID@0900,2100 12/05/19 12/05/19 History Spironolactone [Aldactone] 25 mg PO BID@0900,1600 12/05/19 12/05/19 History Allergies Allergy/AdvReac Type Severity Reaction Status Date / Time No Known Allergies Allergy Verified 12/05/19 11:05 Physical Exam Vitals: Vital Signs Temp Pulse Pulse Resp BP BP Pulse Ox 12/05/19 15:35 88 18 99/57 12/05/19 15:13 85 18 103/59 12/05/19 14:53 85 18 109/70 12/05/19 14:37 89 18 104/70 12/05/19 14:16 79 18 109/71 12/05/19 13:00 87 100/71 95 12/05/19 12:30 78 95/65 95 12/05/19 12:00 82 95/70 94 L 12/05/19 11:30 84 18 110/69 92 L 12/05/19 11:00 78 21 105/72 94 L 12/05/19 10:30 75 24 102/72 94 L 12/05/19 10:00 86 21 110/79 93 L 12/05/19 09:30 75 25 H 106/79 95 12/05/19 08:33 98.1 F 60 18 120/75 97 Intake and Output 12/05/19 12/05/19 12/05/19 06:59 14:59 22:59 Other: Weight 79.742 kg Results CBC & Chem 7: 12/05/19 09:00 12/05/19 09:00 Labs: Abnormal Lab Results - Last 24 Hours (Table) 12/05/19 12/05/19 12/05/19 Range/Units 09:00 09:00 09:00 RBC 4.26 L (4.30-5.90) m/uL Lymphocytes # 0.5 L (1.0-4.8) k/uL INR 1.2 H (<1.2) Sodium 131 L (137-145) mmol/L Chloride 96 L (98-107) mmol/L BUN 77 H (9-20) mg/dL Magnesium 2.4 H (1.6-2.3) mg/dL Total Bilirubin 2.3 H (0.2-1.3) mg/dL AST 68 H (17-59) U/L Alkaline Phosphatase 314 H (38-126) U/L Troponin I (0.000-0.034) ng/mL Lipase (23-300) U/L 12/05/19 12/05/19 Range/Units 09:00 09:00 RBC (4.30-5.90) m/uL Lymphocytes # (1.0-4.8) k/uL INR (<1.2) Sodium (137-145) mmol/L Chloride (98-107) mmol/L BUN (9-20) mg/dL Magnesium (1.6-2.3) mg/dL Total Bilirubin (0.2-1.3) mg/dL AST (17-59) U/L Alkaline Phosphatase (38-126) U/L Troponin I 0.217 H* (0.000-0.034) ng/mL Lipase 531 H (23-300) U/L Assessment and Plan Assessment: Decompensation of cirrhosis of liver with Abdominal distension. Status post paracentesis Elevated liver enzymes secondary to above Elevated troponin Likely due to CHF and fluid load Chronic atrial fibrillation. Rate controlled. On anticoagulation with Eliquis. Chronic CHF EF unknown. Likely diastolic History of CT Hypothyroidism Osteoarthritis DVT prophylaxis patient is already on Eliquis Plan: Patient is currently status post paracentesis with 9 L fluid removal. Patient was given albumin and monitor blood pressure closely. Patient will be continued on home medications including Eliquis. Monitor troponin level and liver enzymes. Currently patient issymptomatically improving. Further recommendations based on the clinical course. Time with Patient: Greater than 30
[2019-12-06] MEDS ORDERED: LEVOTHYROXINE 50 MCG TAB PO SCH (06:30)
[2019-12-06 06:57] LABS: Basophils % (A) 1 %; Eosinophils # (A) 0.1 k/uL (0-0.7); Eosinophils % (A) 1 %; HCT 42.2 % (39.0-53.0); HGB 13.4 gm/dL (13.0-17.5); Lymphocytes # (A) 0.4 k/uL (1.0-4.8); Lymphocytes % (A) 8 %; MCH 31.2 pg (25.0-35.0); MCHC 31.7 g/dL (31.0-37.0); MCV 98.2 fL (80.0-100.0); Mean Platelet Volume 7.5; Monocytes # (A) 0.4 k/uL (0-1.0); Monocytes % (A) 9 %; Neutrophils % (A) 80 %; Platelet Count 164 k/uL (150-450); RDW 13.2 % (11.5-15.5)
[2019-12-06 07:11] LABS: Albumin 3.7 g/dL (3.5-5.0); Calcium 8.8 mg/dL (8.4-10.2); Potassium 4.6 mmol/L (3.5-5.1); Total Bilirubin 2.5 mg/dL (0.2-1.3); Total Protein 6.7 g/dL (6.3-8.2)
[2019-12-06] MEDS ORDERED: ATORVASTATIN 40 MG TAB PO SCH (09:00)
[2019-12-06] MEDS ORDERED: PANTOPRAZOLE 40 MG/10 ML VIAL IV SCH (09:00)
[2019-12-06] MEDS ORDERED: SODIUM BICARBONATE TAB 650 MG TAB PO SCH (09:00)
[2019-12-06] MEDS ORDERED: FUROSEMIDE 40 MG TAB PO SCH (09:00)
[2019-12-06] MEDS ORDERED: APIXABAN 2.5 MG TABLET PO SCH (09:00)
[2019-12-06] MEDS ORDERED: SPIRONOLACTONE 25 MG TAB PO SCH (09:00)
[2019-12-06] MEDS ORDERED: prednisoLONE ACETATE 1% OPHTH DROPS 5 ML BTL RIGHT EYE SCH (09:00)
[2019-12-06] MEDS: MIDODRINE 5 MG TAB PO SCH ×2 (09:22→12:18)
--- NOTE | 2019-12-06 09:38 | US ---
EXAMINATION TYPE: US paracentesis abd w/image DATE OF EXAM: 12/05/2019 COMPARISON: NONE HISTORY: Ascites. PROCEDURE: Maximal barrier technique was utilized. The skin overlying a suitable pocket of fluid was localized with ultrasound and the overlying skin was prepped and draped. Ultrasound was utilized with sterile technique. Lidocaine was used for local anesthesia and a skin nathan made with a scalpel. Catheter was advanced under direct ultrasound guidance into a suitable pocket of fluid and approximately 9.5 liter s of serous fluid were removed. Catheter was withdrawn and hemostasis achieved. There is no immedia te complication; the patient is discharged in stable condition. IMPRESSION: STATUS POST ULTRASOUND GUIDED PARACENTESIS FOR PALLIATION OF ASCITES. THIS PROCEDURE WA S PERFORMED BY THE UNDERSIGNED.
[2019-12-06] MEDS: SODIUM CHLORIDE 0.9% 1,000 ML IV SCH (10:03)
[2019-12-06 12:04] VITALS: BP 99/53; PULSE 81; RESP 17; TEMP 97.8
== END 2019-12-06 13:40 | disposition home or self-care (01) ==
LOC: EC 08:31 → 5NMEDONC 11:02
PROVIDERS: ADMIT Hospitalist; ATTEND Hospitalist
DX: K74.69 Other cirrhosis of liver (principal); R18.8 Other ascites; I48.20 Chronic atrial fibrillation, unspecified; I50.9 Heart failure, unspecified; R79.89 Other specified abnormal findings of blood chemistry; M19.90 Unspecified osteoarthritis, unspecified site; H91.90 Unspecified hearing loss, unspecified ear; H57.9 Unspecified disorder of eye and adnexa; E03.9 Hypothyroidism, unspecified; I38 Endocarditis, valve unspecified; Z03.818 Encounter for observation for suspected exposure to other biological agents ruled out; Z79.890 Hormone replacement therapy; Z79.01 Long term (current) use of anticoagulants; Z79.899 Other long term (current) drug therapy; I25.2 Old myocardial infarction; Z96.652 Presence of left artificial knee joint; Z94.7 Corneal transplant status; Z80.9 Family history of malignant neoplasm, unspecified; Z80.0 Family history of malignant neoplasm of digestive organs
CPT/HCPCS: 96374; 99285; 36415; 93005; 83880; 80053 ×2; 83690; 83735; 84484 ×2; 85025 ×2; 85610; 85730; 87635; 71046; 74018; 49083; G0378 ×2; P9047; C9113

== ENCOUNTER 2020-01-31 12:06 | Day surgery (SDC) | payer MEDICARE ==
[2020-01-31 12:38] LABS: Mean Platelet Volume 7.9; Platelet Count 159 k/uL (150-450)
[2020-01-31 12:44] LABS: INR 1.2 (<1.2); Prothrombin Time 12.1 sec (9.0-12.0)
[2020-01-31 12:49] VITALS: TEMP 98.5
[2020-01-31] MEDS: ALBUMIN HUMAN 25% 50 ML in EMPTY BAG 1 BAG IVPB SCH ×3 (14:02→14:21)
[2020-01-31 14:41] VITALS: RESP 16
[2020-01-31 15:16] VITALS: BP 98/66; PULSE 78
--- NOTE | 2020-01-31 15:55 | US ---
EXAMINATION TYPE: US paracentesis abd w/image DATE OF EXAM: 01/31/2020 COMPARISON: NONE HISTORY: Ascites. PROCEDURE: Maximal barrier technique was utilized. The skin overlying a suitable pocket of fluid was localized with ultrasound and the overlying skin was prepped and draped. Ultrasound was utilized with sterile technique. Lidocaine was used for local anesthesia and a skin nathan made with a scalpel. Catheter was advanced under direct ultrasound guidance into a suitable pocket of fluid and approximately 6.6 liter s of serous fluid were removed. Catheter was withdrawn and hemostasis achieved. There is no immedia te complication; the patient is discharged in stable condition. IMPRESSION: STATUS POST ULTRASOUND GUIDED PARACENTESIS FOR PALLIATION OF ASCITES. THIS PROCEDURE WA S PERFORMED BY THE UNDERSIGNED.
== END 2020-01-31 15:10 | disposition home or self-care (01) ==
LOC: RADPROMAIN 12:06
PROVIDERS: ATTEND Internal Medicine
DX: R18.8 Other ascites (principal); K74.69 Other cirrhosis of liver
CPT/HCPCS: 82565; 85049; 85610; 36415; 49083; P9047

== ENCOUNTER 2020-03-14 08:38 | Observation (INO) | payer MEDICARE ==
--- NOTE | 2020-03-14 09:01 | ED ---
Abdominal Pain HPI <Benton Bain - Last Filed: 03/14/20 09:59> - General Source: patient, family, RN notes reviewed, old records reviewed Mode of arrival: ambulatory Limitations: no limitations <Maribel Merritt - Last Filed: 03/14/20 10:28> - General Chief Complaint: Abdominal Pain Stated Complaint: stomach issues Time Seen by Provider: 03/14/20 08:48 - History of Present Illness Initial Comments: This Patient is a 89-year-old male presents emergency room today for evaluation for concern for abdominal distention. Patient has history of cirrhosis requiring paracentesis. His last paracentesis was mid January and had 6 L removed. Patient is on Eliquis and he stopped it in the past day. His daughter is his main caregiver. They report that they called the set up an outpatient paracentesis however this cannot be done until March 23. Patient's been significantly uncomfortable for the past week, stating that he is becoming weak as he is unable to eat or drink much when he has this fullness and distention. (Maribel Merritt) - Related Data Home Medications Medication Instructions Recorded Confirmed Atorvastatin [Lipitor] 40 mg PO DAILY@0900 05/30/19 03/14/20 Levothyroxine Sodium [Synthroid] 175 mcg PO DAILY@0900 06/02/19 03/14/20 Prednisolone Acetate/Pf 1 drop RIGHT EYE BID 09/12/19 03/14/20 [Prednisolone Acet 1% Eye Drop] Apixaban [Eliquis] 2.5 mg PO DAILY@0900 12/05/19 03/14/20 Midodrine [ProAmatine] 10 mg PO TID@0900,1200,1600 12/05/19 03/14/20 Sodium Bicarbonate Tab 650 mg PO BID@0900,2100 12/05/19 03/14/20 Spironolactone [Aldactone] 25 mg PO BID@0900,1600 12/05/19 03/14/20 Previous Rx's Medication Instructions Recorded Furosemide [Lasix] 40 mg PO BID@0900,1600 30 Days #60 09/22/19 tab Allergies Allergy/AdvReac Type Severity Reaction Status Date / Time No Known Allergies Allergy Verified 03/14/20 09:27 Review of Systems ROS Other: All systems not noted in ROS Statement are negative. <Benton Bain - Last Filed: 03/14/20 09:59> ROS Other: All systems not noted in ROS Statement are negative. <ShainaMaribel - Last Filed: 03/14/20 10:28> ROS Statement: Those systems with pertinent positive or pertinent negative responses have been documented in the HPI. Past Medical History Past Medical History: Atrial Fibrillation, Chest Pain / Angina, Heart Failure, Eye Disorder, Hearing Disorder / Deafness, Liver Disease, Myocardial Infarction ([place]), Osteoarthritis (OA), Syncope, Thyroid Disorder Additional Past Medical History / Comment(s): Self catheterization , LEAKY HEART VALVES, sinus drainage. Had Rt eye surg 06/01/19, "membrane not sealing completely." Last Myocardial Infarction Date:: 02/2018 History of Any Multi-Drug Resistant Organisms: None Reported Past Surgical History: Heart Catheterization, Hernia Repair, Orthopedic Surgery Additional Past Surgical History / Comment(s): left knee replacement, back surgery, prostate surgery. RT Eye Keratoplasty. 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, multiple paracentesis Past Anesthesia/Blood Transfusion Reactions: No Reported Reaction Past Psychological History: No Psychological Hx Reported Smoking Status: Never smoker Past Alcohol Use History: None Reported Past Drug Use History: None Reported - Past Family History Father Family Medical History: Cancer Additional Family Medical History / Comment(s): pancreas/liver cancer Daughter(s) Family Medical History: Cancer Additional Family Medical History / Comment(s): perineal CA Brca1 gene Mother Family Medical History: No Reported History <ShainaMaribel - Last Filed: 03/14/20 10:28> General Exam Limitations: no limitations General appearance: alert, in no apparent distress Head exam: Present: atraumatic, normocephalic, normal inspection Eye exam: Present: normal appearance, PERRL, EOMI. Absent: scleral icterus, conjunctival injection, periorbital swelling ENT exam: Present: normal exam, mucous membranes moist Neck exam: Present: normal inspection. Absent: tenderness, meningismus, lymphadenopathy Respiratory exam: Present: normal lung sounds bilaterally. Absent: respiratory distress, wheezes, rales, rhonchi, stridor Cardiovascular Exam: Present: regular rate, normal rhythm, normal heart sounds. Absent: systolic murmur, diastolic murmur, rubs, gallop, clicks GI/Abdominal exam: Present: soft, distended (distended abdomen, no erythema ), tenderness, normal bowel sounds. Absent: guarding, rebound, rigid Extremities exam: Present: normal inspection, full ROM, normal capillary refill. Absent: tenderness, pedal edema, joint swelling, calf tenderness Back exam: Present: normal inspection Neurological exam: Present: alert Psychiatric exam: Present: normal affect, normal mood <SunshineMaribel campos - Last Filed: 03/14/20 10:28> - General Exam Comments Initial Comments: 89 year old male, no distress. (Maribel Merritt) Course Vital Signs 03/14/20 08:39 Temperature 98.1 F Pulse Rate 76 Respiratory 18 Rate Blood Pressure 105/66 O2 Sat by Pulse 98 Oximetry Medical Decision Making - Lab Data Result diagrams: 03/14/20 08:59 03/14/20 08:59 <Benton Bain - Last Filed: 03/14/20 09:59> - Lab Data Result diagrams: 03/14/20 08:59 03/14/20 08:59 <Maribel Merritt - Last Filed: 03/14/20 10:28> - Medical Decision Making Patient reexamined and reevaluated by myself, Dr. Bain. I do agree with PA findings. This includes diagnostic interpretation and treatment plan. Patient does have moderate abdominal distention. Patient complains of fullness and dyspnea associated with this. Case was discussed in detail with Dr. Frankel, who will admit covering for Dr. Palomares. (Benton Bain) 89-year-old male with history of cirrhosis and requiring paracentesis last paracentesis was January 30. He presents today with abdominal distention sitting he is weak and short of breath and unable to eat well with the abdominal distention. This time labs reviewed. No significant change from previous. Patient case was discussed with Dr. Bain. Discussed the case with Dr. Frankel. Patient will be admitted at this time for observation with consult interventional radiology to have paracentesis performed. (Maribel Merritt) - Lab Data Lab Results 03/14/20 03/14/20 03/14/20 Range/Units 08:59 08:59 08:59 WBC 5.8 (3.8-10.6) k/uL RBC 4.19 L (4.30-5.90) m/uL Hgb 13.2 (13.0-17.5) gm/dL Hct 39.8 (39.0-53.0) % MCV 94.8 (80.0-100.0) fL MCH 31.5 (25.0-35.0) pg MCHC 33.2 (31.0-37.0) g/dL RDW 13.7 (11.5-15.5) % Plt Count 190 (150-450) k/uL Neutrophils % 73 % Lymphocytes % 11 % Monocytes % 9 % Eosinophils % 4 % Basophils % 1 % Neutrophils # 4.2 (1.3-7.7) k/uL Lymphocytes # 0.6 L (1.0-4.8) k/uL Monocytes # 0.5 (0-1.0) k/uL Eosinophils # 0.2 (0-0.7) k/uL Basophils # 0.0 (0-0.2) k/uL PT 11.7 (9.0-12.0) sec INR 1.2 H (<1.2) APTT 25.1 (22.0-30.0) sec Sodium 128 L (137-145) mmol/L Potassium 4.9 (3.5-5.1) mmol/L Chloride 95 L (98-107) mmol/L Carbon Dioxide 25 (22-30) mmol/L Anion Gap 8 mmol/L BUN 74 H (9-20) mg/dL Creatinine 0.82 (0.66-1.25) mg/dL Est GFR (CKD-EPI)AfAm >90 (>60 ml/min/1.73 sqM) Est GFR (CKD-EPI)NonAf 78 (>60 ml/min/1.73 sqM) Glucose 100 H (74-99) mg/dL Calcium 9.0 (8.4-10.2) mg/dL Total Bilirubin 2.2 H (0.2-1.3) mg/dL AST 70 H (17-59) U/L ALT 46 (4-49) U/L Alkaline Phosphatase 327 H (38-126) U/L Total Protein 7.1 (6.3-8.2) g/dL Albumin 4.0 (3.5-5.0) g/dL Urine Color Urine Appearance (Clear) Urine pH (5.0-8.0) Ur Specific [place] (1.001-1.035) Urine Protein (Negative) Urine Glucose (UA) (Negative) Urine Ketones (Negative) Urine Blood (Negative) Urine Nitrite (Negative) Urine Bilirubin (Negative) Urine Urobilinogen (<2.0) mg/dL Ur Leukocyte Esterase (Negative) 03/14/20 Range/Units 10:01 WBC (3.8-10.6) k/uL RBC (4.30-5.90) m/uL Hgb (13.0-17.5) gm/dL Hct (39.0-53.0) % MCV (80.0-100.0) fL MCH (25.0-35.0) pg MCHC (31.0-37.0) g/dL RDW (11.5-15.5) % Plt Count (150-450) k/uL Neutrophils % % Lymphocytes % % Monocytes % % Eosinophils % % Basophils % % Neutrophils # (1.3-7.7) k/uL Lymphocytes # (1.0-4.8) k/uL Monocytes # (0-1.0) k/uL Eosinophils # (0-0.7) k/uL Basophils # (0-0.2) k/uL PT (9.0-12.0) sec INR (<1.2) APTT (22.0-30.0) sec Sodium (137-145) mmol/L Potassium (3.5-5.1) mmol/L Chloride (98-107) mmol/L Carbon Dioxide (22-30) mmol/L Anion Gap mmol/L BUN (9-20) mg/dL Creatinine (0.66-1.25) mg/dL Est GFR (CKD-EPI)AfAm (>60 ml/min/1.73 sqM) Est GFR (CKD-EPI)NonAf (>60 ml/min/1.73 sqM) Glucose (74-99) mg/dL Calcium (8.4-10.2) mg/dL Total Bilirubin (0.2-1.3) mg/dL AST (17-59) U/L ALT (4-49) U/L Alkaline Phosphatase (38-126) U/L Total Protein (6.3-8.2) g/dL Albumin (3.5-5.0) g/dL Urine Color Light Yellow Urine Appearance Clear (Clear) Urine pH 5.5 (5.0-8.0) Ur Specific [place] 1.007 (1.001-1.035) Urine Protein Negative (Negative) Urine Glucose (UA) Negative (Negative) Urine Ketones Negative (Negative) Urine Blood Negative (Negative) Urine Nitrite Negative (Negative) Urine Bilirubin Negative (Negative) Urine Urobilinogen <2.0 (<2.0) mg/dL Ur Leukocyte Esterase Negative (Negative) Disposition <Benton Bain - Last Filed: 03/14/20 09:59> Is patient prescribed a controlled substance at d/c from ED?: No Time of Disposition: 10:27 <Maribel Merritt - Last Filed: 03/14/20 10:28> Clinical Impression: Abdominal distension, Decompensation of cirrhosis of liver, Hyponatremia Disposition: ADMITTED IP TO THIS HOSP Condition: Stable Referrals: Angie Palomares MD [Primary Care Provider] - 1-2 days
[2020-03-14 09:09] LABS: Basophils % (A) 1 %; Eosinophils # (A) 0.2 k/uL (0-0.7); Eosinophils % (A) 4 %; HCT 39.8 % (39.0-53.0); HGB 13.2 gm/dL (13.0-17.5); Lymphocytes # (A) 0.6 k/uL (1.0-4.8); Lymphocytes % (A) 11 %; MCH 31.5 pg (25.0-35.0); MCHC 33.2 g/dL (31.0-37.0); MCV 94.8 fL (80.0-100.0); Mean Platelet Volume 7.1; Monocytes # (A) 0.5 k/uL (0-1.0); Monocytes % (A) 9 %; Neutrophils # (A) 4.2 k/uL (1.3-7.7); Neutrophils % (A) 73 %; Platelet Count 190 k/uL (150-450); RBC 4.19 m/uL (4.30-5.90); RDW 13.7 % (11.5-15.5); WBC 5.8 k/uL (3.8-10.6)
[2020-03-14 09:18] LABS: ALT 46 U/L (4-49); AST 70 U/L (17-59); African American GFR (CKD) >90 (>60 ml/min/1.73 sqM); Alkaline Phosphatase 327 U/L (38-126); Anion Gap 8 mmol/L; Blood Urea Nitrogen 74 mg/dL (9-20); Carbon Dioxide 25 mmol/L (22-30); Chloride 95 mmol/L (98-107); Glucose 100 mg/dL (74-99); Non-African American GFR(CKD) 78 (>60 ml/min/1.73 sqM); Potassium 4.9 mmol/L (3.5-5.1); Sodium 128 mmol/L (137-145); Total Bilirubin 2.2 mg/dL (0.2-1.3); Total Protein 7.1 g/dL (6.3-8.2)
[2020-03-14 09:26] LABS: INR 1.2 (<1.2); Partial Thromboplastin Time 25.1 sec (22.0-30.0); Prothrombin Time 11.7 sec (9.0-12.0)
[2020-03-14 10:11] LABS: Appearance,Urine Clear (Clear); Bilirubin,Urine Negative (Negative); Blood,Urine Negative (Negative); Color,Urine Light Yellow; Glucose,Urine (UA) Negative (Negative); Ketones,Urine Negative (Negative); Leukocyte Esterase,Urine Negative (Negative); Nitrite,Urine Negative (Negative); PH, Urine 5.5 (5.0-8.0); Protein,Urine Negative (Negative); Specific Gravity,Urine 1.007 (1.001-1.035); Urobilinogen,Urine <2.0 mg/dL (<2.0)
[2020-03-14] MEDS ORDERED: NALOXONE 0.4 MG/ML 1 ML VIAL IV PRN (10:28)
[2020-03-14] MEDS ORDERED: ONDANSETRON 4 MG/2 ML VIAL IVP PRN (10:28)
[2020-03-14] MEDS ORDERED: SODIUM CHLORIDE 0.9% 1,000 ML IV SCH (10:30)
[2020-03-14 11:06] VITALS: TEMP 97.9
[2020-03-14] MEDS ORDERED: MIDODRINE 5 MG TAB PO SCH (12:00)
--- NOTE | 2020-03-14 12:37 | P.DS ---
Providers Date of admission: 03/14/20 10:00 Attending physician: Vane Frankel Primary care physician: Angie Palomares [place] [facility] Course: As mentioned in HPI Patient Condition at Discharge: Stable Plan - Discharge Summary Discharge Rx Participant: No New Discharge Prescriptions: Continue Atorvastatin [Lipitor] 40 mg PO DAILY@0900 Levothyroxine Sodium [Synthroid] 175 mcg PO DAILY@0900 Prednisolone Acetate/Pf [Prednisolone Acet 1% Eye Drop] 1 drop RIGHT EYE BID Midodrine [ProAmatine] 10 mg PO TID@0900,1200,1600 Sodium Bicarbonate Tab 650 mg PO BID@0900,2100 Apixaban [Eliquis] 2.5 mg PO DAILY@0900 Spironolactone [Aldactone] 25 mg PO BID@0900,1600 #0 Furosemide [Lasix] 40 mg PO BID@0900,1600 30 Days #60 tab Discharge Medication List Atorvastatin [Lipitor] 40 mg PO DAILY@0900 05/30/19 [History] Levothyroxine Sodium [Synthroid] 175 mcg PO DAILY@0900 06/02/19 [History] Prednisolone Acetate/Pf [Prednisolone Acet 1% Eye Drop] 1 drop RIGHT EYE BID 09/12/19 [History] Apixaban [Eliquis] 2.5 mg PO DAILY@0900 12/05/19 [History] Midodrine [ProAmatine] 10 mg PO TID@0900,1200,1600 12/05/19 [History] Sodium Bicarbonate Tab 650 mg PO BID@0900,2100 12/05/19 [History] Furosemide [Lasix] 40 mg PO BID@0900,1600 30 Days #60 tab 03/14/20 [Rx] Spironolactone [Aldactone] 25 mg PO BID@0900,1600 #0 03/14/20 [Rx] Follow up Appointment(s)/Referral(s): Angie Palomares MD [Primary Care Provider] - 3 Days Ambulatory/Diagnostic Orders: Basic Metabolic Panel [LAB.AMB] Location: None Selected Discharge Disposition: HOME SELF-CARE
--- NOTE | 2020-03-14 12:37 | P.HPIM ---
History of Present Illness patient is a pleasant 18-year-old male came in with abdominal distention patient last paracentesis was on January 22 the patient does have history of cirrhosis. Patient denied any significant abdominal pain patient doesn't have any signs or symptoms of spontaneous back to peritonitis. Patient has been uncomfortable because of abdominal distention and coming in here for possible paracentesis. Patient has been holding his Eliquis since Thursday. Patient will undergo paracentesis today therapeutic and after that patient will be discharged patient is mildly hyponatremic probably secondary to diuretics asked him to hold that at its today and tomorrow and will recheck the basic metabolic profile in about couple days and patient can start taking his Lasix from the after tomorrow. He will do the same with Aldactone. Patient wanted to be discharged after paracentesis. Review of Systems REVIEW OF SYSTEMS: CONSTITUTIONAL: No fever, no malaise, no fatigue. HEENT: No recent visual problems or hearing problems. Denied any sore throat. CARDIOVASCULAR: No chest pain, orthopnea, PND, no palpitations, no syncope. PULMONARY: No shortness of breath, no cough, no hemoptysis. GASTROINTESTINAL: No diarrhea, no nausea, no vomiting. NEUROLOGICAL: No headaches, no weakness, no numbness. HEMATOLOGICAL: Denies any bleeding or petechiae. GENITOURINARY: Denies any burning micturition, frequency, or urgency. MUSCULOSKELETAL/RHEUMATOLOGICAL: Denies any joint pain, swelling, or any muscle pain. ENDOCRINE: Denies any polyuria or polydipsia. The rest of the 14-point review of systems is negative. Past Medical History Past Medical History: Atrial Fibrillation, Coronary Artery Disease (CAD), Chest Pain / Angina, Heart Failure, Eye Disorder, Hearing Disorder / Deafness, Liver Disease, Myocardial Infarction ([place]), Osteoarthritis (OA), Syncope, Thyroid Diso rder Additional Past Medical History / Comment(s): Chronic Afib, 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/ascitis with multiple paracentesis, chronic CHF, 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, BPH with surgery, hypothyroid, sinus drainage, [place] bilaterally with hearing aides, arthritis in back and hands, R eye surgery for membrane not "sealing"-vision is good, Last Myocardial Infarction Date:: 02/2018 History of Any Multi-Drug Resistant Organisms: None Reported Past Surgical History: Back Surgery, Heart Catheterization, Hernia Repair, Joint Replacement, Orthopedic Surgery, Prostate Surgery Additional Past Surgical History / Comment(s): Multiple paracentesis, 2018 cardiac cath-treat medically, total L knee arthroplasty, lower back surgery, bilateral carpal tunnel releases, TURP, R inguinal hernia repair, colonoscopies with benign polypectomies, R eye corneal transplant/keratoplasty Past Anesthesia/Blood Transfusion Reactions: No Reported Reaction Smoking Status: Former smoker - Past Family History Father Family Medical History: Cancer Additional Family Medical History / Comment(s): Father from pancreas/liver cancer at the age of 65 yrs. Daughter(s) Family Medical History: Cancer Additional Family Medical History / Comment(s): perineal CA Brca1 gene Mother Family Medical History: No Reported History Additional Family Medical History / Comment(s): Mother lived to be 94 yrs old. Medications and Allergies Home Medications Medication Instructions Recorded Confirmed Type Atorvastatin [Lipitor] 40 mg PO DAILY@0900 05/30/19 03/14/20 History Levothyroxine Sodium [Synthroid] 175 mcg PO DAILY@0900 06/02/19 03/14/20 History Prednisolone Acetate/Pf 1 drop RIGHT EYE BID 09/12/19 03/14/20 History [Prednisolone Acet 1% Eye Drop] Apixaban [Eliquis] 2.5 mg PO DAILY@0900 12/05/19 03/14/20 History Midodrine [ProAmatine] 10 mg PO TID@0900,1200,1600 12/05/19 03/14/20 History Sodium Bicarbonate Tab 650 mg PO BID@0900,2100 12/05/19 03/14/20 History Furosemide [Lasix] 40 mg PO BID@0900,1600 30 Days #60 03/14/20 03/14/20 Rx tab Spironolactone [Aldactone] 25 mg PO BID@0900,1600 #0 03/14/20 03/14/20 Rx Allergies Allergy/AdvReac Type Severity Reaction Status Date / Time No Known Allergies Allergy Verified 03/14/20 09:27 Physical Exam Vitals: Vital Signs Temp Pulse Pulse Resp BP BP Pulse Ox 03/14/20 12:28 77/53 03/14/20 12:10 74 18 97/62 95 03/14/20 11:56 77 16 105/67 97 03/14/20 11:41 97.9 F 75 16 94/67 95 03/14/20 11:05 97.9 F 80 16 105/62 97 03/14/20 10:46 70 16 110/70 98 03/14/20 08:39 98.1 F 76 18 105/66 98 Intake and Output 03/13/20 03/14/20 03/14/20 22:59 06:59 14:59 Other: # Voids 0 Weight 71.668 kg PHYSICAL EXAMINATION: GENERAL: The patient is alert and oriented x3, not in any acute distress. Well developed, well nourished. HEENT: Pupils are round and equally reacting to light. EOMI. No scleral icterus. No conjunctival pallor. Normocephalic, atraumatic. No pharyngeal erythema. No thyromegaly. CARDIOVASCULAR: S1 and S2 present. No murmurs, rubs, or gallops. PULMONARY: Chest is clear to auscultation, no wheezing or crackles. ABDOMEN:distended does have shifting dullness note significant tenderness was appreciated MUSCULOSKELETAL: No joint swelling or deformity. EXTREMITIES: No cyanosis, clubbing, or pedal edema. NEUROLOGICAL: Gross neurological examination did not reveal any focal deficits. SKIN: No rashes. Results CBC & Chem 7: 03/14/20 08:59 03/14/20 08:59 Labs: Abnormal Lab Results - Last 24 Hours (Table) 03/14/20 03/14/20 03/14/20 Range/Units 08:59 08:59 08:59 RBC 4.19 L (4.30-5.90) m/uL Lymphocytes # 0.6 L (1.0-4.8) k/uL INR 1.2 H (<1.2) Sodium 128 L (137-145) mmol/L Chloride 95 L (98-107) mmol/L BUN 74 H (9-20) mg/dL Glucose 100 H (74-99) mg/dL Total Bilirubin 2.2 H (0.2-1.3) mg/dL AST 70 H (17-59) U/L Alkaline Phosphatase 327 H (38-126) U/L Thrombosis Risk Factor Assmnt - Choose All That Apply Any of the Below Risk Factors Present?: Yes Other Risk Factors: Yes Each Risk Factor Represents 3 Points: Age 75 years or older Other congenital or acquired thrombophilia - If yes, enter type in comment: No Thrombosis Risk Factor Assessment Total Risk Factor Score: 3 Thrombosis Risk Factor Assessment Level: Moderate Risk Assessment and Plan Plan: -abdominal distention and abdominal discomfort secondary to gastritis and cirrhosis. Patient will undergo therapeutic paracentesis at which patient will be discharged diabetes mellitus on his back hepatitis -Chronic A. fib patient is presently rate controlled on Eliquis which will be continued -Hypothyroidism -coronary artery disease -Osteoarthritis Patient will be discharged after paracentesis and patient was monitored for couple hours before discharge
[2020-03-14 13:28] VITALS: RESP 14
[2020-03-14] MEDS: ALBUMIN HUMAN 25% 50 ML in EMPTY BAG 1 BAG IVPB SCH ×4 (13:30→14:20)
[2020-03-14 14:46] VITALS: BP 100/58; PULSE 68
[2020-03-14] MEDS ORDERED: FUROSEMIDE 40 MG TAB PO SCH (16:00)
[2020-03-14] MEDS ORDERED: SPIRONOLACTONE 25 MG TAB PO SCH (16:00)
--- NOTE | 2020-03-14 16:31 | US ---
EXAMINATION TYPE: US paracentesis abd w/image DATE OF EXAM: 03/14/2020 CLINICAL HISTORY: Ascites Preprocedure preliminary ultrasound imaging demonstrates moderate volume ascites. The procedure was discussed with the patient. The risks, complications, benefits, and alternatives we re discussed and any questions were answered. Informed consent was obtained. The patient was placed s upine on the ultrasound table and prepped and draped in the usual sterile fashion. All elements of maximal barrier technique were utilized. Under ultrasound guidance, access into the right lower quadrant was obtained with a 5 British one-step centesis catheter. Approximately 3.6 liters of clear serosanguineous fluid was removed. Catheter was removed and sterile bandage was applied. The patient was stable throughout the procedure and remained stable upon discha rge from Department of Radiology. IMPRESSION: Successful ultrasound-guided paracentesis, with removal of 3.6 liters of clear serosanguineous fluid.
[2020-03-14] MEDS ORDERED: prednisoLONE ACETATE 1% OPHTH DROPS 5 ML BTL RIGHT EYE SCH (21:00)
[2020-03-14] MEDS ORDERED: SODIUM BICARBONATE TAB 650 MG TAB PO SCH (21:00)
[2020-03-15] MEDS ORDERED: PANTOPRAZOLE 40 MG/10 ML VIAL IV SCH (09:00)
[2020-03-15] MEDS ORDERED: ATORVASTATIN 40 MG TAB PO SCH (09:00)
[2020-03-15] MEDS ORDERED: APIXABAN 2.5 MG TABLET PO SCH (09:00)
[2020-03-15] MEDS ORDERED: LEVOTHYROXINE 88 MCG TAB PO SCH (09:00)
== END 2020-03-14 15:04 | disposition home or self-care (01) ==
LOC: EC 08:38 → 1SOBS 10:00
PROVIDERS: ADMIT Internal Medicine; ATTEND Internal Medicine
DX: R18.8 Other ascites (principal); K74.60 Unspecified cirrhosis of liver; E87.1 Hypo-osmolality and hyponatremia; K29.70 Gastritis, unspecified, without bleeding; I48.20 Chronic atrial fibrillation, unspecified; E03.9 Hypothyroidism, unspecified; I25.10 Atherosclerotic heart disease of native coronary artery without angina pectoris; M47.899 Other spondylosis, site unspecified; M19.042 Primary osteoarthritis, left hand; M19.041 Primary osteoarthritis, right hand; I50.9 Heart failure, unspecified; I25.2 Old myocardial infarction; I38 Endocarditis, valve unspecified; N40.0 Benign prostatic hyperplasia without lower urinary tract symptoms; H91.93 Unspecified hearing loss, bilateral; Z79.01 Long term (current) use of anticoagulants; Z79.899 Other long term (current) drug therapy; Z79.890 Hormone replacement therapy; Z79.52 Long term (current) use of systemic steroids; Z87.09 Personal history of other diseases of the respiratory system; Z98.890 Other specified postprocedural states; Z87.19 Personal history of other diseases of the digestive system; Z96.652 Presence of left artificial knee joint; Z94.7 Corneal transplant status; Z97.4 Presence of external hearing-aid; Z90.79 Acquired absence of other genital organ(s); Z86.010 Personal history of colon polyps; Z87.891 Personal history of nicotine dependence; Z86.69 Personal history of other diseases of the nervous system and sense organs; Z80.0 Family history of malignant neoplasm of digestive organs; Z80.8 Family history of malignant neoplasm of other organs or systems; Z80.3 Family history of malignant neoplasm of breast
CPT/HCPCS: 99285; 36415; 80053; 85025; 85610; 85730; 81003; 49083; G0378; P9047

== ENCOUNTER 2020-04-12 11:57 | Day surgery (SDC) | payer MEDICARE ==
[2020-04-12 12:47] LABS: Mean Platelet Volume 7.4; Platelet Count 172 k/uL (150-450)
[2020-04-12 12:48] VITALS: RESP 16; TEMP 98
[2020-04-12 13:02] LABS: INR 1.2 (<1.2); Prothrombin Time 11.8 sec (9.0-12.0)
[2020-04-12 15:10] VITALS: BP 113/61; PULSE 77
--- NOTE | 2020-04-12 16:00 | US ---
EXAMINATION TYPE: US paracentesis abd w/image DATE OF EXAM: 04/12/2020 COMPARISON: NONE HISTORY: Ascites. PROCEDURE: Maximal barrier technique was utilized. The skin overlying a suitable pocket of fluid was localized with ultrasound and the overlying skin was prepped and draped. Ultrasound was utilized with sterile technique. Lidocaine was used for local anesthesia and a skin nathan made with a scalpel. Catheter was advanced under direct ultrasound guidance into a suitable pocket of fluid and approximately 3.9 liter s of serous sanguinous fluid were removed. Catheter was withdrawn and hemostasis achieved. There is no immediate complication; the patient is discharged in stable condition. IMPRESSION: STATUS POST ULTRASOUND GUIDED PARACENTESIS FOR PALLIATION OF ASCITES. THIS PROCEDURE WA S PERFORMED BY THE UNDERSIGNED.
== END 2020-04-12 15:07 | disposition home or self-care (01) ==
LOC: RADPROMAIN 11:57
PROVIDERS: ATTEND Internal Medicine Gastroenterology
DX: R18.8 Other ascites (principal)
CPT/HCPCS: 36415; 49083; 82565; 85049; 85610

== ENCOUNTER 2020-05-07 14:13 | Emergency (ER) | payer MEDICARE ==
[2020-05-07 14:33] VITALS: BP 95/52; PULSE 102; RESP 16; TEMP 97.9
[2020-05-07] MEDS ORDERED: FAMOTIDINE 20 MG TAB PO STA (16:02)
[2020-05-07] MEDS ORDERED: CEPHALEXIN 500MG STARTER PACK 4 CAP BTL PO STA (16:02)
[2020-05-07] MEDS ORDERED: predniSONE 50 MG TAB PO STA (16:02)
--- NOTE | 2020-05-07 16:13 | ED ---
General Adult HPI - General Chief complaint: Skin/Abscess/Foreign Body Stated complaint: Skin Issues Time Seen by Provider: 05/07/20 14:59 Source: patient Mode of arrival: wheelchair Limitations: no limitations - History of Present Illness Initial comments: 89-year-old male presents to the emergency department accompanied by his daughter for evaluation of bilateral upper extremity redness, swelling, itching, and scabbing. Also complains of itching on the top of the scalp as well. States symptoms began on Thursday with itching, mild redness, and some scabbing, but states redness and swelling worsened last night and today. Patient's daughter attributes these symptoms to a medication senior marketing coordinator change, however patient insists his symptoms, though mild, preceded the change. Patient's daughter states his Midodrine used to be a small pink pill and is now a larger size white pill. Patient denies any recent fever, chills, cough, shortness of breath, chest pain, abdominal pain, nausea, vomiting, diarrhea, constipation, back pain, numbness, tingling, dizziness, weakness, hematuria, dysuria, urinary urgency, urinary frequency, headache, visual changes, or any other complaints. - Related Data Home Medications Medication Instructions Recorded Confirmed Atorvastatin [Lipitor] 40 mg PO DAILY@0900 05/30/19 03/14/20 Levothyroxine Sodium [Synthroid] 175 mcg PO DAILY@0900 06/02/19 03/14/20 Prednisolone Acetate/Pf 1 drop RIGHT EYE BID 09/12/19 03/14/20 [Prednisolone Acet 1% Eye Drop] Apixaban [Eliquis] 2.5 mg PO DAILY@0900 12/05/19 04/12/20 Midodrine [ProAmatine] 10 mg PO TID@0900,1200,1600 12/05/19 03/14/20 Sodium Bicarbonate Tab 650 mg PO BID@0900,2100 12/05/19 03/14/20 Previous Rx's Medication Instructions Recorded Furosemide [Lasix] 40 mg PO BID@0900,1600 30 Days #60 03/14/20 tab Spironolactone [Aldactone] 25 mg PO BID@0900,1600 #0 03/14/20 Cephalexin [Keflex] 500 mg PO Q6HR #40 cap 05/07/20 Famotidine [Pepcid] 20 mg PO DAILY #5 tablet 05/07/20 Midodrine [ProAmatine] 10 mg PO TID #180 tablet 05/07/20 predniSONE 50 mg PO DAILY #5 tablet 05/07/20 Allergies Allergy/AdvReac Type Severity Reaction Status Date / Time No Known Allergies Allergy Verified 05/07/20 14:37 Review of Systems ROS Statement: Those systems with pertinent positive or pertinent negative responses have been documented in the HPI. ROS Other: All systems not noted in ROS Statement are negative. 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, BPH with surgery, hypot hyroid, sinus drainage, [place] bilaterally with hearing aides, arthritis in back and hands, R eye surgery for membrane not "sealing"-vision is good, Last Myocardial Infarction Date:: 02/2018 History of Any Multi-Drug Resistant Organisms: None Reported Past Surgical History: Back Surgery, Heart Catheterization, Hernia Repair, Joint Replacement, Orthopedic Surgery, Prostate Surgery Additional Past Surgical History / Comment(s): Multiple paracentesis, 2018 cardiac cath-treat medically, total L knee arthroplasty, lower back surgery, bilateral carpal tunnel releases, TURP, R inguinal hernia repair, colonoscopies with benign polypectomies, R eye corneal transplant/keratoplasty Past Anesthesia/Blood Transfusion Reactions: No Reported Reaction Past Psychological History: No Psychological Hx Reported Smoking Status: Former smoker Past Alcohol Use History: None Reported Past Drug Use History: None Reported - Past Family History Father Family Medical History: Cancer Additional Family Medical History / Comment(s): Father from pancreas/liver cancer at the age of 65 yrs. Daughter(s) Family Medical History: Cancer Additional Family Medical History / Comment(s): perineal CA Brca1 gene Mother Family Medical History: No Reported History Additional Family Medical History / Comment(s): Mother lived to be 94 yrs old. General Exam Limitations: no limitations General appearance: alert, in no apparent distress, other (Physical well- developed, well-nourished elderly male patient in no acute distress. Vital signs upon presentation are temperature is 7.9F, pulse 102, respirations 16, blood pressure 95/52. Pulse ox 98% on room air.) Head exam: Present: atraumatic, normocephalic, other (Scabbed lesions noted over the top of the head, no surrounding erythema, no purulent drainage.) Respiratory exam: Present: normal lung sounds bilaterally. Absent: respiratory distress, wheezes, rales, rhonchi, stridor Cardiovascular Exam: Present: regular rate, normal rhythm, normal heart sounds. Absent: systolic murmur, diastolic murmur, rubs, gallop, clicks GI/Abdominal exam: Present: soft, normal bowel sounds. Absent: distended, tenderness, guarding, rebound, rigid Extremities exam: Present: full ROM, normal capillary refill, other (Dorsal aspect of the bilateral forearms is erythematous, swollen, with scabbed lesions scattered. No evidence for purulent drainage. Skin is hot to touch. Cap refills less than 3 seconds. Radial pulses 2+ and equal bilaterally.). Absent: normal inspection, tenderness, pedal edema, joint swelling, calf tenderness Neurological exam: Present: alert, oriented X3, CN II-XII intact Psychiatric exam: Present: normal affect, normal mood Skin exam: Present: warm, dry, intact, normal color, rash (To bilateral arms as documented) Course Vital Signs 05/07/20 14:30 Temperature 97.9 F Pulse Rate 102 H Respiratory 16 Rate Blood Pressure 95/52 O2 Sat by Pulse 98 Oximetry Medical Decision Making - Medical Decision Making 89-year-old male patient percents to the emergency department today for evaluation of rash to the bilateral arms and the top of his head. Physical examination did reveal swelling, erythema, scattered scabbed lesions to the dorsal forearms and up over the elbows and lower upper arms. This is possibly ALLERGIC reaction due to her recent medication switch. There is concern for possible secondary cellulitis due to scratching at the wounds. He is afebrile. Denies dizziness or weakness. Answering all questions appropriately. We will start prednisone, Pepcid, and Keflex. He is instructed follow up with his primary care physician for recheck in 1-2 days. He verbalizes understanding and agrees with this plan. Disposition Clinical Impression: Allergic reaction, Cellulitis Disposition: HOME SELF-CARE Condition: Good Instructions (If sedation given, give patient instructions): Cellulitis (ED), General Allergic Reaction (ED) Additional Instructions: Take medications as directed. Follow-up with your primary care provider in the next 1-2 days for recheck. Return to emergency department if he develop any shortness of breath, tightness in her chest, or difficulty breathing. Prescriptions: Cephalexin [Keflex] 500 mg PO Q6HR #40 cap Famotidine [Pepcid] 20 mg PO DAILY #5 tablet predniSONE 50 mg PO DAILY #5 tablet Midodrine [ProAmatine] 10 mg PO TID #180 tablet Is patient prescribed a controlled substance at d/c from ED?: No Referrals: Angie Palomares MD [Primary Care Provider] - 1-2 days Time of Disposition: 16:13
== END 2020-05-07 16:19 | disposition home or self-care (01) ==
LOC: EC 14:13
DX: L03.90 Cellulitis, unspecified (principal); T78.40XA Allergy, unspecified, initial encounter; E07.9 Disorder of thyroid, unspecified; H91.93 Unspecified hearing loss, bilateral; I25.2 Old myocardial infarction; Z79.01 Long term (current) use of anticoagulants; Z79.899 Other long term (current) drug therapy; Z79.890 Hormone replacement therapy; Z79.51 Long term (current) use of inhaled steroids; Z96.652 Presence of left artificial knee joint; Z87.891 Personal history of nicotine dependence
CPT/HCPCS: 99283; J7512

== ENCOUNTER 2020-05-11 12:18 | Day surgery (SDC) | payer MEDICARE ==
[2020-05-11] MEDS ORDERED: ALBUMIN HUMAN 25% 50 ML in EMPTY BAG 1 BAG IVPB SCH (12:30)
[2020-05-11 12:54] LABS: Mean Platelet Volume 7.7; Platelet Count 179 k/uL (150-450)
[2020-05-11 13:01] LABS: INR 1.2 (<1.2); Prothrombin Time 11.7 sec (9.0-12.0)
[2020-05-11 13:17] VITALS: RESP 16; TEMP 97.8
[2020-05-11 14:02] VITALS: PULSE 65
[2020-05-11 14:18] VITALS: BP 105/65
--- NOTE | 2020-05-11 16:51 | US ---
EXAMINATION TYPE: US paracentesis abd w/image DATE OF EXAM: 05/11/2020 CLINICAL HISTORY: Ascites COMPARISON: Ultrasound paracentesis 04/18 11/06 [employer] DEALER: Dr. Erinn Armstrong PROCEDURE: Preprocedure preliminary ultrasound imaging demonstrates large volume ascites. The procedure was discussed with the patient. The risks, complications, benefits, and alternatives we re discussed and any questions were answered. Informed consent was obtained. The patient was placed s upine on the ultrasound table and prepped and draped in the usual sterile fashion. All elements of maximal barrier technique were utilized. Under ultrasound guidance, access into the left lower quadrant was obtained with a 5 Sami one-step centesis catheter. Approximately 3.6 liters of clear serous fluid was removed. Catheter was removed and sterile bandage was applied. The patient was stable throughout the procedure and remained stable upon discharge from Department of Radiology. IMPRESSION: Successful ultrasound-guided paracentesis, with removal of 3.6 liters of clear serous fluid.
== END 2020-05-11 14:30 | disposition home or self-care (01) ==
LOC: RADPROMAIN 12:18
PROVIDERS: ATTEND Internal Medicine Gastroenterology
DX: R18.8 Other ascites (principal); K74.69 Other cirrhosis of liver
CPT/HCPCS: 49083; 82565; 85049; 85610

== ENCOUNTER 2020-05-15 09:52 | Emergency (ER) | payer MEDICARE ==
[2020-05-15 09:59] VITALS: BP 101/58; PULSE 76; RESP 18; TEMP 97.6
[2020-05-15] MEDS ORDERED: hydrOXYzine HCL 25 MG TAB PO STA (10:27)
[2020-05-15] MEDS ORDERED: predniSONE 50 MG TAB PO STA (10:27)
--- NOTE | 2020-05-15 10:31 | ED ---
Skin/Abscess/FB HPI - General Source: patient, family, RN notes reviewed Mode of arrival: wheelchair Limitations: no limitations <Jaiden Valencia - Last Filed: 05/15/20 10:27> <Tres Strange - Last Filed: 05/15/20 10:38> - General Chief complaint: Skin/Abscess/Foreign Body Stated complaint: Revisit - Rash Time Seen by Provider: 05/15/20 10:04 - History of Present Illness Initial comments: 89-year-old male presents emergency Department chief complaint of itchy rash on his arms. Patient states started approximately 10 days ago. Patient was seen in emergency department and started on steroids and antibiotics and Pepcid. Symptoms improved and placed on steroids symptoms worsen last couple days. Patient reports no fevers or chills denies any medications though he states when started he had a different pain fracturing of his medication. Patient denies fevers or chills no difficulty breathing or swallowing. (Jaiden Valencia) - Related Data Home Medications Medication Instructions Recorded Confirmed Atorvastatin [Lipitor] 40 mg PO DAILY@0900 05/30/19 05/11/20 Levothyroxine Sodium [Synthroid] 175 mcg PO DAILY@0900 06/02/19 05/11/20 Prednisolone Acetate/Pf 1 drop RIGHT EYE BID 09/12/19 05/11/20 [Prednisolone Acet 1% Eye Drop] Apixaban [Eliquis] 2.5 mg PO DAILY@0900 12/05/19 05/11/20 Midodrine [ProAmatine] 10 mg PO TID@0900,1200,1600 12/05/19 05/11/20 Sodium Bicarbonate Tab 650 mg PO BID@0900,2100 12/05/19 05/11/20 Previous Rx's Medication Instructions Recorded Furosemide [Lasix] 40 mg PO BID@0900,1600 30 Days #60 03/14/20 tab Spironolactone [Aldactone] 25 mg PO BID@0900,1600 #0 03/14/20 Cephalexin [Keflex] 500 mg PO Q6HR #40 cap 05/07/20 Famotidine [Pepcid] 20 mg PO DAILY #5 tablet 05/07/20 Midodrine [ProAmatine] 10 mg PO TID #180 tablet 05/07/20 predniSONE 50 mg PO DAILY #5 tablet 05/07/20 hydrOXYzine HCL [Atarax] 25 mg PO TID PRN #15 tab 05/15/20 predniSONE 10 mg PO DIRECTED #20 tab 05/15/20 Allergies Allergy/AdvReac Type Severity Reaction Status Date / Time No Known Allergies Allergy Verified 05/15/20 09:59 Review of Systems ROS Other: All systems not noted in ROS Statement are negative. <Jaiden Valencia - Last Filed: 05/15/20 10:27> ROS Other: All systems not noted in ROS Statement are negative. <Tres Strange - Last Filed: 05/15/20 10:38> ROS Statement: Those systems with pertinent positive or pertinent negative responses have been documented in the HPI. 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, BPH with surgery, hypothyroid, sinus drainage, [place] bilaterally with hearing aides, arthritis in b ack and hands, R eye surgery for membrane not "sealing"-vision is good, Last Myocardial Infarction Date:: 02/2018 History of Any Multi-Drug Resistant Organisms: None Reported Past Surgical History: Back Surgery, Heart Catheterization, Hernia Repair, Joint Replacement, Orthopedic Surgery, Prostate Surgery Additional Past Surgical History / Comment(s): Multiple paracentesis, 2018 cardiac cath-treat medically, total L knee arthroplasty, lower back surgery, bilateral carpal tunnel releases, TURP, R inguinal hernia repair, colonoscopies with benign polypectomies, R eye corneal transplant/keratoplasty Past Anesthesia/Blood Transfusion Reactions: No Reported Reaction Past Psychological History: No Psychological Hx Reported Smoking Status: Former smoker Past Alcohol Use History: None Reported Past Drug Use History: None Reported - Past Family History Father Family Medical History: Cancer Additional Family Medical History / Comment(s): Father from pancreas/liver cancer at the age of 65 yrs. Daughter(s) Family Medical History: Cancer Additional Family Medical History / Comment(s): perineal CA Brca1 gene Mother Family Medical History: No Reported History Additional Family Medical History / Comment(s): Mother lived to be 94 yrs old. <Jaiden Valencia - Last Filed: 05/15/20 10:27> General Exam Limitations: no limitations General appearance: alert, in no apparent distress Head exam: Present: atraumatic, normocephalic, normal inspection Eye exam: Present: normal appearance, PERRL, EOMI. Absent: scleral icterus, conjunctival injection, periorbital swelling Respiratory exam: Present: normal lung sounds bilaterally. Absent: respiratory distress, wheezes, rales, rhonchi, stridor Cardiovascular Exam: Present: regular rate, normal rhythm, normal heart sounds. Absent: systolic murmur, diastolic murmur, rubs, gallop, clicks Neurological exam: Present: alert, oriented X3, CN II-XII intact Skin exam: Present: warm, dry, intact, normal color, rash (Bilateral arms, scalp there is some excoriation scabbing along with swelling noted with a reddish purplish discoloration that is non-blanchable) <Jaiden Valencia - Last Filed: 05/15/20 10:27> Course <Tres Strange - Last Filed: 05/15/20 10:38> Vital Signs 05/15/20 09:56 Temperature 97.6 F Pulse Rate 76 Respiratory 18 Rate Blood Pressure 101/58 O2 Sat by Pulse 98 Oximetry - Reevaluation(s) Reevaluation #1: 05/15/20 10:36 pA supervision: I proceeded [id number] evaluation the patient. He did present with complaints of rash to both forearms and to the top of his head. Per his he seemed to start after taking the different may fractures preparation one of his medications. Is believed that is secondary to the dye in the other pills. He has since gotten his usual prescription. He is currently on antibiotics she did get better after steroids but once steroids were done he did start having increasing rash. He does demonstrate erythema or both forearms and to the top of his head this does appear to be consistent with solar exposure patient will be discharged to continue with his current medications and also started on Atarax for itch as well as a longer tapering dose of steroids. I do agree with the assessment and plan (Tres Strange) Medical Decision Making <Jaiden Valencia - Last Filed: 05/15/20 10:27> - Medical Decision Making 89-year-old male presented for rash. Patient evaluated by me and Dr. Strange this is felt to be related to ALLERGIC reaction patient may have had rebound as symptoms started after stopping steroids. Patient will follow-up PCP and will be provided dermatology. (Jaiden Valencia) Disposition Is patient prescribed a controlled substance at d/c from ED?: No Time of Disposition: 10:30 <Jaiden Valencia - Last Filed: 05/15/20 10:27> <Tres Strange - Last Filed: 05/15/20 10:38> Clinical Impression: Allergic reaction, Rash Disposition: HOME SELF-CARE Condition: Stable Instructions (If sedation given, give patient instructions): Acute Rash (ED) Additional Instructions: Please return to the Emergency Department if symptoms worsen or any other concerns. Prescriptions: hydrOXYzine HCL [Atarax] 25 mg PO TID PRN #15 tab PRN Reason: itching predniSONE 10 mg PO DIRECTED #20 tab Referrals: Angie Palomares MD [Primary Care Provider] - 1-2 days Corinne Villa MD [STAFF PHYSICIAN] - 1-2 days
== END 2020-05-15 10:48 | disposition home or self-care (01) ==
LOC: EC 09:52
DX: T78.40XA Allergy, unspecified, initial encounter (principal); R21 Rash and other nonspecific skin eruption; I25.119 Atherosclerotic heart disease of native coronary artery with unspecified angina pectoris; I48.20 Chronic atrial fibrillation, unspecified; I50.9 Heart failure, unspecified; I25.2 Old myocardial infarction; E07.9 Disorder of thyroid, unspecified; Z79.01 Long term (current) use of anticoagulants; Z79.890 Hormone replacement therapy; Z79.899 Other long term (current) drug therapy; Z87.891 Personal history of nicotine dependence; Z96.652 Presence of left artificial knee joint
CPT/HCPCS: 99282; J7512

== ENCOUNTER 2020-05-25 00:28 | Inpatient (IN) | payer MEDICARE ==
--- NOTE | 2020-05-25 00:49 | ED ---
Chest Pain HPI - General Chief Complaint: Chest Pain Stated Complaint: Chest pain Time Seen by Provider: 05/25/20 00:37 Source: patient, EMS Mode of arrival: EMS Limitations: no limitations - History of Present Illness Initial Comments: 's patient is an 89-year-old man who presents with complaint of left-sided chest pain. He states that it came on around 10:30 while he was trying to go to sleep. He tried taking nitroglycerin at home and after taking a total of 3 without having the pain resolved, his called EMS. The patient states that the pain has subsequently resolved. He feels well now. there were no accompanying symptoms. MD Complaint: chest pain Onset/Timin -: hour(s) Onset: during rest Pain Location: left chest Pain Radiation: none Severity: moderate Quality: heaviness Consistency: now resolved Improves With: nothing Worsens With: nothing Treatments Prior to Arrival: nitroglycerin - Related Data Home Medications Medication Instructions Recorded Confirmed Atorvastatin [Lipitor] 40 mg PO DAILY@0800 05/30/19 05/25/20 Levothyroxine Sodium [Synthroid] 175 mcg PO DAILY@0800 06/02/19 05/25/20 Apixaban [Eliquis] 2.5 mg PO DAILY@0800 12/05/19 05/25/20 Sodium Bicarbonate Tab 650 mg PO BID@0800,2100 12/05/19 05/25/20 Furosemide [Lasix] 40 mg PO DAILY@1600 05/15/20 05/25/20 Midodrine [ProAmatine] 10 mg PO TID@0800,1200,1600 05/15/20 05/25/20 Spironolactone [Aldactone] 25 mg PO BID@0800,2100 05/15/20 05/25/20 hydrOXYzine pamoate [hydrOXYzine 12.5 mg PO HS 05/25/20 05/25/20 PAMOATE] Allergies Allergy/AdvReac Type Severity Reaction Status Date / Time midodrine 10mg tablets AdvReac Arm Uncoded 05/25/20 07:32 Swelling-see comments Review of Systems ROS Statement: Those systems with pertinent positive or pertinent negative responses have been documented in the HPI. ROS Other: All systems not noted in ROS Statement are negative. Constitutional: Denies: fever, chills Respiratory: Denies: cough, dyspnea Cardiovascular: Reports: chest pain. Denies: palpitations, orthopnea, edema, syncope Gastrointestinal: Reports: constipation (chronic). Denies: abdominal pain, nausea, vomiting, diarrhea Genitourinary: Denies: dysuria, hematuria Musculoskeletal: Denies: back pain Skin: Denies: rash Neurological: Denies: headache, weakness, numbness EKG Findings - Dysrhythmias: Supraventricular dysrhythmia: atrial fibrillation (rate approximate 74 bpm) - Blocks, [place], Hypertrophy, ST Abn: AV and intraventricular conduction: right bundle branch block (fixed/intermittent, complete/incomplete) (incomplete) Past Medical History Past Medical History: Atrial Fibrillation, Coronary Artery Disease (CAD), Chest Pain / Angina, Heart Failure, Eye Disorder, Hearing Disorder / Deafness, Liver Disease, Myocardial Infarction ([place]), Osteoarthritis (OA), Syncope, Thyroid Disorder Additional Past Medical History / Comment(s): Chronic Afib, 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/ascitis with multiple paracentesis, chronic CHF, 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, BPH with surgery, hypothyroid, sinus drainage, [place] bilaterally with hearing aides, arthritis in back and hands, R eye surgery for membrane not "sealing"-vision is good, Last Myocardial Infarction Date:: 02/2018 History of Any Multi-Drug Resistant Organisms: None Reported Past Surgical History: Back Surgery, Heart Catheterization, Hernia Repair, Joint Replacement, Orthopedic Surgery, Prostate Surgery Additional Past Surgical History / Comment(s): Multiple paracentesis, 2018 cardiac cath-treat medically, total L knee arthroplasty, lower back surgery, bilateral carpal tunnel releases, TURP, R inguinal hernia repair, colonoscopies with benign polypectomies, R eye corneal transplant/keratoplasty Past Anesthesia/Blood Transfusion Reactions: No Reported Reaction Past Psychological History: No Psychological Hx Reported Smoking Status: Former smoker Past Alcohol Use History: None Reported Past Drug Use History: None Reported - Past Family History Father Family Medical History: Cancer Additional Family Medical History / Comment(s): Father from pancreas/liver cancer at the age of 65 yrs. Daughter(s) Family Medical History: Cancer Additional Family Medical History / Comment(s): perineal CA Brca1 gene Mother Family Medical History: No Reported History Additional Family Medical History / Comment(s): Mother lived to be 94 yrs old. General Exam Limitations: no limitations General appearance: alert, in no apparent distress Head exam: Present: atraumatic, normocephalic Eye exam: Present: normal appearance. Absent: scleral icterus, conjunctival injection Neck exam: Present: normal inspection Respiratory exam: Present: normal lung sounds bilaterally. Absent: respiratory distress, wheezes, rales, rhonchi, stridor Cardiovascular Exam: Present: regular rate, irregular rhythm, systolic murmur. Absent: diastolic murmur, rubs, gallop GI/Abdominal exam: Present: soft. Absent: distended, tenderness, guarding, rebound, rigid, mass Extremities exam: Present: normal inspection, normal capillary refill. Absent: pedal edema, calf tenderness Back exam: Present: normal inspection. Absent: CVA tenderness (R), CVA tenderness (L) Neurological exam: Present: alert Skin exam: Present: warm, dry, intact, normal color. Absent: rash Course Vital Signs 05/25/20 05/25/20 05/25/20 00:29 00:39 01:39 Temperature 98 F Pulse Rate 73 75 Respiratory 18 16 16 Rate Blood Pressure 102/58 93/68 Blood Pressure [Sitting] O2 Sat by Pulse 96 97 Oximetry 05/25/20 05/25/20 05/25/20 04:39 08:00 09:00 Temperature 97.5 F L Pulse Rate 73 78 Respiratory 18 16 16 Rate Blood Pressure 92/53 88/60 Blood Pressure [Sitting] O2 Sat by Pulse 97 96 Oximetry 05/25/20 05/25/20 05/25/20 10:00 11:00 12:00 Temperature 97.3 F L Pulse Rate 72 Respiratory 16 16 16 Rate Blood Pressure 99/66 Blood Pressure 98/62 [Sitting] O2 Sat by Pulse 96 95 Oximetry 05/25/20 12:36 Temperature 97.3 F L Pulse Rate 72 Respiratory 16 Rate Blood Pressure 99/66 Blood Pressure [Sitting] O2 Sat by Pulse 95 Oximetry Disposition Clinical Impression: Chest pain, Non-STEMI (non-ST elevated myocardial infarction), Hyponatremia, Elevated troponin Disposition: ADMITTED IP TO THIS HOSP Condition: Fair
--- NOTE | 2020-05-25 01:11 | XR ---
EXAM: XR Chest, 2 Views CLINICAL HISTORY: ITS.REASON XR Reason: Chest Pain TECHNIQUE: Frontal and lateral views of the chest. COMPARISON: CXR dated 09/18/2019 FINDINGS: Lungs: Question subtle airspace opacities within the central lungs and lower lungs which may represent early pulmonary vascular congestion versus an infectious process. Again seen is a prominent nodule within the right lower lobe measuring up to 15 mm which is roughly unchanged. Pleural space: Unremarkable. Heart: Heart is enlargement Mediastinum: Unremarkable. Bones/joints: Unremarkable. IMPRESSION: 1. Question subtle airspace opacities within the central lungs and lower lungs which may represent early pulmonary vascular congestion versus an infectious process. 2. Again seen is a prominent nodule within the right lower lobe measuring up to 15 mm which is roughly unchanged.
[2020-05-25 01:13] LABS: Basophils # (A) 0.1 k/uL (0-0.2); Basophils % (A) 1 %; Eosinophils # (A) 0.2 k/uL (0-0.7); Eosinophils % (A) 2 %; HGB 14.1 gm/dL (13.0-17.5); Lymphocytes # (A) 0.3 k/uL (1.0-4.8); Lymphocytes % (A) 3 %; MCHC 33.5 g/dL (31.0-37.0); MCV 95.5 fL (80.0-100.0); Mean Platelet Volume 7.3; Monocytes # (A) 0.4 k/uL (0-1.0); Monocytes % (A) 5 %; Neutrophils % (A) 88 %; Platelet Count 142 k/uL (150-450); RDW 12.8 % (11.5-15.5)
[2020-05-25 01:21] LABS: INR 1.1 (<1.2); Partial Thromboplastin Time 23.7 sec (22.0-30.0); Prothrombin Time 11.2 sec (9.0-12.0)
[2020-05-25 01:25] LABS: Albumin 3.5 g/dL (3.5-5.0); Calcium 8.4 mg/dL (8.4-10.2); Magnesium 2.2 mg/dL (1.6-2.3); Potassium 5.2 mmol/L (3.5-5.1); Total Bilirubin 2.1 mg/dL (0.2-1.3); Total Protein 6.4 g/dL (6.3-8.2)
[2020-05-25] MEDS ORDERED: NITROGLYCERIN SL TABS 0.4 MG TAB SUBLINGUAL PRN (01:58)
[2020-05-25 09:38] LABS: Cholesterol 105 mg/dL (<200); HDL Cholesterol 74 mg/dL (40-60); LDL Cholesterol,Calculated 22 mg/dL (0-99); Triglycerides 44 mg/dL (<150)
[2020-05-25 10:08] LABS: Calcium 8.4 mg/dL (8.4-10.2)
--- NOTE | 2020-05-25 10:29 | P.NPCON ---
History of Present Illness - Reason for Consult hyponatremia - History of Present Illness Reason for consultation: Hyponatremia History of present illness: Patient is a 89-year-old male seen in renal consultation for hyponatremia. Sodium level was 120 on admission. Patient has history of nonalcoholic liver cirrhosis. His last paracentesis was May 11 with 3.6 L drained. Patient states he's been taking 25 mg twice daily spironolactone and Lasix 40 mg twice daily as well. He denies any edema. Denies abdominal pain. Good urine output. No hematuria or dysuria. No dizziness or syncopal episodes. Blood pressure is low in the systolic 80s. Daughter is also present at bedside. Patient prese nted to the hospital with chief complaint of chest pain. Patient describes the pain as pressure with radiation to his neck. It is currently resolved. He was also taking steroids recently for an ALLERGIC reaction to a drug and just completed the dose earlier this week. Denies melena or hematochezia. His BUN is elevated at 119. Creatinine is 1.02. Patient also has a history of diastolic CHF with severe tricuspid regurgitation and moderate mitral regurgitation. This was noted in the echocardiogram done January 2019. Denies use of nonsteroidals. Denies family history of renal disease. No history of diabetes. Vital signs are stable. Blood pressure in the lower side. General: The patient appeared well nourished and normally developed. HEENT: Head exam is unremarkable. Neck is without jugular venous distension. LUNGS: Breath sounds decreased. HEART: Rate and Rhythm are regular. ABDOMEN: Soft, nontender. EXTREMITITES: No edema. Past Medical History Past Medical History: Atrial Fibrillation, Coronary Artery Disease (CAD), Chest Pain / Angina, Heart Failure, Eye Disorder, Hearing Disorder / Deafness, Liver Disease, Myocardial Infarction (LA), Osteoarthritis (OA), Syncope, Thyroid Disorder Additional Past Medical History / Comment(s): Chronic Afib, 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/ascitis with multiple paracentesis, chronic CHF, 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, BPH with surgery, hypothyroid, sinus drainage, [place] bilaterally with hearing aides, arthritis in back and hands, R eye surgery for membrane not "sealing"-vision is good, Last Myocardial Infarction Date:: 02/2018 History of Any Multi-Drug Resistant Organisms: None Reported Past Surgical History: Back Surgery, Heart Catheterization, Hernia Repair, Joint Replacement, Orthopedic Surgery, Prostate Surgery Additional Past Surgical History / Comment(s): Multiple paracentesis, 2018 cardiac cath-treat medically, total L knee arthroplasty, lower back surgery, bilateral carpal tunnel releases, TURP, R inguinal hernia repair, colonoscopies with benign polypectomies, R eye corneal transplant/keratoplasty Past Anesthesia/Blood Transfusion Reactions: No Reported Reaction Past Psychological History: No Psychological Hx Reported Smoking Status: Former smoker Past Alcohol Use History: None Reported Past Drug Use History: None Reported - Past Family History Father Family Medical History: Cancer Additional Family Medical History / Comment(s): Father from pancreas/liver cancer at the age of 65 yrs. Daughter(s) Family Medical History: Cancer Additional Family Medical History / Comment(s): perineal CA Brca1 gene Mother Family Medical History: No Reported History Additional Family Medical History / Comment(s): Mother lived to be 94 yrs old. Medications and Allergies Home Medications Medication Instructions Recorded Confirmed Type Atorvastatin [Lipitor] 40 mg PO DAILY@0800 05/30/19 05/25/20 History Levothyroxine Sodium [Synthroid] 175 mcg PO DAILY@0800 06/02/19 05/25/20 History Apixaban [Eliquis] 2.5 mg PO DAILY@0800 12/05/19 05/25/20 History Sodium Bicarbonate Tab 650 mg PO BID@0800,2100 12/05/19 05/25/20 History Furosemide [Lasix] 40 mg PO DAILY@1600 05/15/20 05/25/20 History Midodrine [ProAmatine] 10 mg PO TID@0800,1200,1600 05/15/20 05/25/20 History Spironolactone [Aldactone] 25 mg PO BID@0800,2100 05/15/20 05/25/20 History hydrOXYzine pamoate [hydrOXYzine 12.5 mg PO HS 05/25/20 05/25/20 History PAMOATE] Allergies Allergy/AdvReac Type Severity Reaction Status Date / Time midodrine 10mg tablets AdvReac Arm Uncoded 05/25/20 07:32 Swelling-see comments Physical Exam Vitals: Vital Signs Temp Pulse Resp BP Pulse Ox 05/25/20 08:00 97.5 F L 78 16 88/60 96 05/25/20 04:39 73 18 92/53 97 11/06/20 01:39 75 16 93/68 97 05/25/20 00:39 16 05/25/20 00:29 98 F 73 18 102/58 96 Intake and Output 05/24/20 05/25/20 05/25/20 22:59 06:59 14:59 Other: Weight 68.492 kg Results - Lab Results Most recent lab results Calcium 8.4 mg/dL (8.4-10.2) 05/25/20 01:00 Magnesium 2.2 mg/dL (1.6-2.3) 05/25/20 01:00 05/25/20 01:00 05/25/20 01:00 Assessment and Plan Plan: Assessment: 1. Hyponatremia. Patient appears somewhat hypovolemic which is from spironolactone and Lasix which she was taking outpatient. Sodium level 120 on admission. 2. Nonalcoholic liver cirrhosis. 3. Chest pain. Cardiology following. 4. Hypotension secondary to hypovolemia and underlying liver cirrhosis. Rule out adrenal insufficiency. 5. Chronic diastolic CHF with moderate mitral regurgitation and severe tricuspid regurgitation. 6. History of A. fib. 7. Disproportionally elevated BUN which is due to prerenal state as well as the steroids he just completed. No evidence of GI bleed. Plan: Hold diuretics. Start normal saline at 70 mL an hour. Check bladder scan to rule out urinary retention. Check abdominal ultrasound. Midodrine was also added. Repeat BMP this evening. Check morning cortisol level. Check TSH. Check serum and urine osmolality and urine sodium level. Follow-up echocardiogram. Thank you for the consultation. I will continue to follow the patient with you during his hospital stay.
[2020-05-25] MEDS: SODIUM BICARBONATE TAB 650 MG TAB PO SCH ×2 (10:39→20:03)
[2020-05-25] MEDS: LEVOTHYROXINE 88 MCG TAB PO SCH (10:39)
[2020-05-25] MEDS: MIDODRINE 5 MG TAB PO SCH ×3 (10:40→15:58)
[2020-05-25] MEDS: APIXABAN 2.5 MG TABLET PO SCH (10:40)
[2020-05-25] MEDS: ATORVASTATIN 40 MG TAB PO SCH (10:40)
[2020-05-25] MEDS: ISOSORBIDE MONONITRATE ER 30 MG TAB.ER.24H PO SCH (10:40)
--- NOTE | 2020-05-25 11:32 | P.HPIM ---
History of Present Illness This is a 89 years old male with past medical history of atrial fibrillation on renal dose of Eliquis, coronary artery disease, chronic heart failure, hearing difficulty, osteoarthritis, hyperthyroidism, liver cirrhosis, cysts with ascites and status post multiple paracenteses, neurogenic bladder with back surgery status post self-catheterization, benign prostatic hypertrophy status post surgery, patient presents because of chest pain of 1-2 days ago, started at night, central, nonradiating felt like pressure and felt very bad as per patient description however patient is not in distress currently. He denies dizziness or shortness of breath or cough No headache or numbness however he feels generally weak, no arm or leg weakness. No blurred vision or slurred speech. No seizure-like activity He denies smoking or alcohol. He does self-catheterization at home Vitas looks stable, blood pressure low normal at 92/53. Labs show an unremarkable CBC and INR, sodium is significantly low at 120, potassium 5.2, liver enzymes slightly elevated at AST 128 and ALT 121, bilirubin also slightly elevated at 2.1 Upon and is elevated at 0.9 and 0.9, [place] [id number] EKG showing atrial fibrillation with rate 74 and QTC 461, no significant ST-T changes. Chest x-ray: Possible pulmonary vascular congestion versus an infectious process and right lower lobe lung nodule about 15 mm Echocardiogram at 02/08/2019: Ejection fraction 55-60%, moderate mitral regurgitation, severe tricuspid regurgitation In the emergency room he was given aspirin 325 mg daily and nitroglycerin. Review of Systems CONSTITUTIONAL: No fever, no malaise, no fatigue. HEENT: No recent visual problems or hearing problems. Denied any sore throat. CARDIOVASCULAR: No orthopnea, PND, no palpitations, no syncope. PULMONARY: No shortness of breath, no cough, no hemoptysis. GASTROINTESTINAL: No diarrhea, no nausea, no vomiting, no abdominal pain. Normoactive bowel sounds. NEUROLOGICAL: No headaches, no weakness, no numbness. HEMATOLOGICAL: Denies any bleeding or petechiae. GENITOURINARY: Denies any burning micturition, frequency, or urgency. MUSCULOSKELETAL/RHEUMATOLOGICAL: Denies any joint pain, swelling, or any muscle pain. ENDOCRINE: Denies any polyuria or polydipsia. Past Medical History Past Medical History: Atrial Fibrillation, Coronary Artery Disease (CAD), Chest Pain / Angina, Heart Failure, Eye Disorder, Hearing Disorder / Deafness, Liver Disease, Myocardial Infarction (AL), Osteoarthritis (OA), Syncope, Thyroid Disorder Additional Past Medical History / Comment(s): Chronic Afib, 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/ascitis with multiple paracentesis, chronic CHF, 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, BPH with surgery, hypothyroid, sinus drainage, [place] bilaterally with hearing aides, arthritis in back and hands, R eye surgery for membrane not "sealing"-vision is good, Last Myocardial Infarction Date:: 02/2018 History of Any Multi-Drug Resistant Organisms: None Reported Past Surgical History: Back Surgery, Heart Catheterization, Hernia Repair, Joint Replacement, Orthopedic Surgery, Prostate Surgery Additional Past Surgical History / Comment(s): Multiple paracentesis, 2018 cardiac cath-treat medically, total L knee arthroplasty, lower back surgery, bilateral carpal tunnel releases, TURP, R inguinal hernia repair, colonoscopies with benign polypectomies, R eye corneal transplant/keratoplasty Past Anesthesia/Blood Transfusion Reactions: No Reported Reaction Past Psychological History: No Psychological Hx Reported Smoking Status: Former smoker Past Alcohol Use History: None Reported Past Drug Use History: None Reported - Past Family History Father Family Medical History: Cancer Additional Family Medical History / Comment(s): Father from pancreas/liver cancer at the age of 65 yrs. Daughter(s) Family Medical History: Cancer Additional Family Medical History / Comment(s): perineal CA Brca1 gene Mother Family Medical History: No Reported History Additional Family Medical History / Comment(s): Mother lived to be 94 yrs old. Medications and Allergies Home Medications Medication Instructions Recorded Confirmed Type Atorvastatin [Lipitor] 40 mg PO DAILY@0800 05/30/19 05/25/20 History Levothyroxine Sodium [Synthroid] 175 mcg PO DAILY@0800 06/02/19 05/25/20 History Apixaban [Eliquis] 2.5 mg PO DAILY@0800 12/05/19 05/25/20 History Sodium Bicarbonate Tab 650 mg PO BID@0800,2100 12/05/19 05/25/20 History Furosemide [Lasix] 40 mg PO DAILY@1600 05/15/20 05/25/20 History Midodrine [ProAmatine] 10 mg PO TID@0800,1200,1600 05/15/20 05/25/20 History Spironolactone [Aldactone] 25 mg PO BID@0800,2100 05/15/20 05/25/20 History hydrOXYzine pamoate [hydrOXYzine 12.5 mg PO HS 05/25/20 05/25/20 History PAMOATE] Allergies Allergy/AdvReac Type Severity Reaction Status Date / Time midodrine 10mg tablets AdvReac Arm Uncoded 05/25/20 07:32 Swelling-see comments Physical Exam Vitals: Vital Signs Temp Pulse Resp BP Pulse Ox 05/25/20 04:39 73 18 92/53 97 05/25/20 01:39 75 16 93/68 97 05/25/20 00:39 16 05/25/20 00:29 98 F 73 18 102/58 96 Intake and Output 05/24/20 05/25/20 05/25/20 22:59 06:59 14:59 Other: Weight 68.492 kg GENERAL: The patient is alert and oriented x3, not in any acute distress. Well developed, well nourished. HEENT: Pupils are round and equally reacting to light. EOMI. No scleral icterus. No conjunctival pallor. Normocephalic, atraumatic. No pharyngeal erythema. No thyromegaly. CARDIOVASCULAR: S1 and S2 present. No murmurs, rubs, or gallops. PULMONARY: Chest is clear to auscultation, no wheezing or crackles. ABDOMEN: Soft, nontender, nondistended, normoactive bowel sounds. No palpable organomegaly. MUSCULOSKELETAL: No joint swelling or deformity. EXTREMITIES: No cyanosis, clubbing, or pedal edema. NEUROLOGICAL: Gross neurological examination did not reveal any focal deficits. SKIN: No rashes. No petechiae Results CBC & Chem 7: 05/25/20 01:00 05/25/20 08:45 Labs: Abnormal Lab Results - Last 24 Hours (Table) 05/25/20 05/25/20 05/25/20 Range/Units 01:00 01:00 01:00 Plt Count 142 L (150-450) k/uL Neutrophils # 8.0 H (1.3-7.7) k/uL Lymphocytes # 0.3 L (1.0-4.8) k/uL Sodium 120 L (137-145) mmol/L Potassium 5.2 H (3.5-5.1) mmol/L Chloride 91 L (98-107) mmol/L Carbon Dioxide 21 L (22-30) mmol/L BUN 119 H* (9-20) mg/dL Glucose 107 H (74-99) mg/dL Total Bilirubin 2.1 H (0.2-1.3) mg/dL AST 128 H (17-59) U/L ALT 121 H (4-49) U/L Alkaline Phosphatase 224 H (38-126) U/L Troponin I 0.907 H* (0.000-0.034) ng/mL 05/25/20 Range/Units 03:10 Plt Count (150-450) k/uL Neutrophils # (1.3-7.7) k/uL Lymphocytes # (1.0-4.8) k/uL Sodium (137-145) mmol/L Potassium (3.5-5.1) mmol/L Chloride (98-107) mmol/L Carbon Dioxide (22-30) mmol/L BUN (9-20) mg/dL Glucose (74-99) mg/dL Total Bilirubin (0.2-1.3) mg/dL AST (17-59) U/L ALT (4-49) U/L Alkaline Phosphatase (38-126) U/L Troponin I 0.917 H* (0.000-0.034) ng/mL Assessment and Plan Assessment: Severe hyponatremia Chest pain, rule out cardiac causes Mildly elevated liver enzymes Elevated troponin, Patient has chronically elevated troponin chronic diastolic heart failure A. fib with rate controlled, on Eliquis Valvular heart disease with moderate mitral regurgitation and severe tricuspid regurgitationism Liver cirrhosis with ascites status post previous paracenteses chronic kidney disease, stage II Neurogenic bladder status post back surgery, with self catheterization History of benign prostatic hypertrophy status post surgery Hearing difficulty Osteoarthritis Plan: this is a pleasant 89 years old male who presents with severe hyponatremia, CHF and elevated liver enzymes. Monitor sodium closely, check urine and serum osmolality and urine sodium, check TSH, consult cardiology and nephrology services. Continue with aspirin. Continue with Eliquis monitor heart rate and telemetry Labs and medication were reviewed.. Continue same treatment. Continue with symptomatic treatment. Resume home medication. Monitor lytes and vitals. DVT and GI prophylaxis. Further recommendations depends on the clinical course of the patient DVT prophylaxEliquis GI Prophylaxis: Pepcid PT/OT: Pending Prognosis is guarded
[2020-05-25] MEDS ORDERED: MIDODRINE 5 MG TAB PO SCH (12:00)
--- NOTE | 2020-05-25 12:01 | CONS ---
CONSULTATION CHIEF COMPLAINT: Chest pain. HISTORY OF PRESENT ILLNESS: Shahzad is an 89-year-old gentleman with history of persistent atrial fibrillation, chronic diastolic heart failure, hypothyroidism, who presented to hospital complaining of chest pain. He describes it as precordial chest tightness that came on at rest without definite radiation to neck, arm or back, unrelated to exertion and unassociated with diaphoresis. At the time of my evaluation, he appears comfortable at rest. His chest pain has resolved. The patient had a cardiac catheterization in February of 2018 that revealed a 40 to 50% stenosis in the proximal LAD. Right coronary artery and circumflex coronary artery was free of significant stenosis. Echocardiogram in the past revealed normal LV systolic function with moderate mitral regurgitation. The patient is on Lasix and Aldactone. On his initial presentation, he is profoundly prerenal and is in renal failure. Sodium is low at 120, BUN is 19, creatinine is 1. His troponin is elevated at 0.9, 0.9 and 0.8, probably secondary to renal insufficiency. The ALT are elevated. The BNP is also elevated. Troponin elevation is probably related to the renal insufficiency. He needs to be hydrated given the profound intravascular volume depletion. Nephrology has been consulted and I am going to let them take a lead in addressing both the hyponatremia and the renal insufficiency. From a cardiac standpoint, he can get fed. We are not going to perform any invasive procedures at this time. His EKG shows atrial fibrillation, poor R-wave progression and nonspecific ST-T wave changes. He is on Eliquis which is going to continue. PAST MEDICAL HISTORY: Significant for mild coronary artery disease, hypertension, hypothyroidism, dyslipidemia. MEDICATIONS: Medications at home include Aldactone 25 daily, hydroxyzine, Midodrine, 10 t.i.d., Synthroid, Lasix 40 daily, Lipitor 40 daily and Eliquis. FAMILY HISTORY: Negative for premature coronary artery disease. SOCIAL HISTORY: Negative for current smoking, EtOH abuse, or drug abuse. REVIEW OF SYSTEMS: HEENT is unremarkable. CARDIAC as described above. RESPIRATORY negative. GI negative. GENITOURINARY: Significant for renal failure. PSYCHOSOCIAL negative. ENDOCRINE negative. ALLERGY/IMMUNOLOGY: Negative. DERM negative. CONSTITUTIONAL negative. ONCOLOGICAL negative. TAPPER SHANK negative. Rest of the system review is not relevant. EXAM: Heart rate is 78 beats per minute. Blood pressure is 88/60. Respiratory 16. NECK: There is no jugular venous distention. CHEST exam reveals good air entry bilaterally. HEART exam reveals first and second heart sounds, a grade 3 x 6 systolic murmur at the apex. ABDOMEN: Soft. EXTREMITIES: Did not reveal edema. Peripheral pulses are palpable. EKG shows atrial fibrillation and nonspecific ST-T wave changes. LABS: Show that the sodium is 130, potassium is 5.2, BUN is 19. Troponin is 0.9, 0.9 and 0.8. BNP is elevated at 10,500, but this patient is not in congestive heart failure. ASSESSMENT AND PLAN: 1. Chest pain, atypical, resolved. Does not require further workup at this time. 2. Elevated troponin, probably related to the intravascular volume depletion and renal failure. 3. History of coronary artery disease. 4. Hypotension. PLAN: Patient needs to be volume repleted. I am going to wait for Nephrology to evaluate the patient and address this issue. Continue his Eliquis. Obtain a 2D echo. Once his renal failure issues have been addressed, he needs a stress test to see if he has ischemia in LAD distribution and if he does, I will ask Dr. Bucio to perform another catheterization on him. MMODL / IJN: [id number] /
[2020-05-25 15:18] LABS: Calcium 8.5 mg/dL (8.4-10.2); Potassium 5.1 mmol/L (3.5-5.1)
--- NOTE | 2020-05-25 15:30 | US ---
EXAMINATION TYPE: US abdomen limited DATE OF EXAM: 05/25/2020 COMPARISON: 05/11/2020 CLINICAL HISTORY: Ascitis. Check for ascites. Small amount of fluid visualized in right abdomen. IMPRESSION: 1. Mild right ascites
[2020-05-25] MEDS ORDERED: FUROSEMIDE 40 MG TAB PO SCH (16:00)
--- NOTE | 2020-05-25 18:09 | ECHOF ---
Referral Reason:To find the EF MEASUREMENTS -------- HEIGHT: 177.8 cm WEIGHT: 68.5 kg BP: 88/60 RVIDd: 3.7 cm (< 3.3) IVSd: 2.5 cm (0.6 - 1.1) LVIDd: 3.0 cm (3.9 - 5.3) LVPWd: 2.5 cm (0.6 - 1.1) IVSs: 2.8 cm LVIDs: 1.9 cm LVPWs: 2.7 cm LAESV Index (A-L): 61.82 ml/m Ao Diam: 3.1 cm (2.0 - 3.7) AV Cusp: 2.6 cm (1.5 - 2.6) MV EXCURSION: 21.150 mm (> 18.000) MV EF SLOPE: 135 mm/s (70 - 150) EPSS: 0.4 cm RAP: 20.00 mmHg RVSP: 51.33 mmHg FINDINGS -------- This was a technically adequate study. The left ventricular size is normal. There is severe concentric left ventricular hypertrophy. Ove rall left ventricular systolic function is low-normal with, an EF between 50 - 55 %. Increased LAP Grade 2 Diastolic Dysfunction. The right ventricle is mildly enlarged. LA is severely dilated >40 ml/m2 The right atrium is moderately enlarged. Interatrial and interventricular septum intact. There is mild aortic valve sclerosis. There is no evidence of aortic regurgitation. There is no e vidence of aortic stenosis. Moderate mitral regurgitation is present. Moderate to severe tricuspid regurgitation present. There is moderate pulmonary hypertension. The right ventricular systolic pressure, as measured by Doppler, is 51.33mmHg. There is no pulmonic regurgitation present. The aortic root size is normal. The inferior vena cava is dilated with no significant inspiratory collapse which is consistent estima imelda right atrial pressure of >20 mmHg. There is a trivial pericardial effusion present. CONCLUSIONS -------- 1. The left ventricular size is normal. 2. There is severe concentric left ventricular hypertrophy. 3. Overall left ventricular systolic function is low-normal with, an EF between 50 - 55 %. 4. Increased LAP Grade 2 Diastolic Dysfunction. 5. LA is severely dilated >40 ml/m2 6. The right atrium is moderately enlarged. 7. There is mild aortic valve sclerosis. 8. There is no evidence of aortic regurgitation. 9. There is no evidence of aortic stenosis. 10. Moderate mitral regurgitation is present. 11. Moderate to severe tricuspid regurgitation present. 12. There is moderate to severe pulmonary hypertension. 13. The right ventricular systolic pressure, as measured by Doppler, is 51.33mmHg. 14. The inferior vena cava is dilated with no significant inspiratory collapse which is consistent es timated right atrial pressure of >20 mmHg. 15. There is a trivial pericardial effusion present. SERVER: Janette Baker RDCS
[2020-05-25 18:47] LABS: African American GFR (CKD) >90 (>60 ml/min/1.73 sqM); Anion Gap 5 mmol/L; Blood Urea Nitrogen 88 mg/dL (9-20); Calcium 7.4 mg/dL (8.4-10.2); Carbon Dioxide 21 mmol/L (22-30); Chloride 98 mmol/L (98-107); Glucose 107 mg/dL (74-99); Non-African American GFR(CKD) 82 (>60 ml/min/1.73 sqM); Potassium 4.4 mmol/L (3.5-5.1); Sodium 124 mmol/L (137-145)
[2020-05-25] MEDS: SODIUM CHLORIDE 0.9% 1,000 ML IV SCH (20:04)
[2020-05-25] MEDS ORDERED: SODIUM BICARBONATE TAB 650 MG TAB PO SCH (21:00)
[2020-05-25] MEDS ORDERED: SPIRONOLACTONE 25 MG TAB PO SCH (21:00)
[2020-05-26] MEDS: SODIUM CHLORIDE 0.9% 1,000 ML IV SCH (06:27)
[2020-05-26 07:56] LABS: Basophils % (A) 0 %; Eosinophils # (A) 0.1 k/uL (0-0.7); Eosinophils % (A) 2 %; HCT 40.1 % (39.0-53.0); HGB 13.3 gm/dL (13.0-17.5); Lymphocytes # (A) 0.3 k/uL (1.0-4.8); Lymphocytes % (A) 4 %; MCH 32.1 pg (25.0-35.0); MCHC 33.1 g/dL (31.0-37.0); MCV 96.9 fL (80.0-100.0); Mean Platelet Volume 7.3; Monocytes # (A) 0.4 k/uL (0-1.0); Monocytes % (A) 5 %; Neutrophils # (A) 7.2 k/uL (1.3-7.7); Neutrophils % (A) 88 %; Platelet Count 121 k/uL (150-450); RBC 4.14 m/uL (4.30-5.90); RDW 13.1 % (11.5-15.5); WBC 8.1 k/uL (3.8-10.6)
[2020-05-26] MEDS ORDERED: APIXABAN 2.5 MG TABLET PO SCH (08:00)
[2020-05-26] MEDS ORDERED: ATORVASTATIN 40 MG TAB PO SCH (08:00)
[2020-05-26] MEDS ORDERED: LEVOTHYROXINE 88 MCG TAB PO SCH (08:00)
[2020-05-26 08:30] LABS: ALT 97 U/L (4-49); African American GFR (CKD) >90 (>60 ml/min/1.73 sqM); Anion Gap 6 mmol/L; Blood Urea Nitrogen 80 mg/dL (9-20); Calcium 8.2 mg/dL (8.4-10.2); Carbon Dioxide 19 mmol/L (22-30); Chloride 96 mmol/L (98-107); Glucose 97 mg/dL (74-99); Non-African American GFR(CKD) 81 (>60 ml/min/1.73 sqM); Sodium 121 mmol/L (137-145)
[2020-05-26 08:36] LABS: AST 115 U/L (17-59); Alkaline Phosphatase 179 U/L (38-126); Magnesium 2.3 mg/dL (1.6-2.3); Potassium 5.6 mmol/L (3.5-5.1); Total Protein 5.9 g/dL (6.3-8.2)
[2020-05-26] MEDS: LEVOTHYROXINE 88 MCG TAB PO SCH (09:14)
[2020-05-26] MEDS: ASPIRIN 325 MG TAB PO SCH (09:14)
[2020-05-26] MEDS: APIXABAN 2.5 MG TABLET PO SCH (09:14)
[2020-05-26] MEDS: MIDODRINE 5 MG TAB PO SCH ×3 (09:14→17:22)
[2020-05-26] MEDS: SODIUM BICARBONATE TAB 650 MG TAB PO SCH ×2 (09:14→20:24)
[2020-05-26] MEDS: ATORVASTATIN 40 MG TAB PO SCH (09:14)
[2020-05-26] MEDS: ISOSORBIDE MONONITRATE ER 30 MG TAB.ER.24H PO SCH (09:15)
--- NOTE | 2020-05-26 14:44 | PN ---
PROGRESS NOTE The patient is seen for followup for hyponatremia. His serum sodium has been staying low 120-121. It did go up to 124 yesterday. Patient's blood pressure is staying on the lower side with systolic around 88-90 mmHg. He has been maintained on normal saline at about 50 mL an hour. The patient had been on Lasix which is now discontinued. The patient does have a history of urine retention and self catheterizes at home. Serum cortisol was not low, it was 24. Urine osmolality 276. Random urine sodium is 30. Serum sodium has dropped to 121 from 124 yesterday. PHYSICAL EXAMINATION: On examination today, blood pressure 91/56, heart rate 64 per minute, he is afebrile. Examination of the heart S1, S2. Examination of the lungs, bilateral breath sounds are heard. Abdomen is soft, nontender. Examination of lower extremities shows no significant edema. FINE ARTS CHAIR exam grossly intact. LAB: Show sodium 121, potassium 5.6, chloride 96, CO2 is ( ), serum creatinine 0.75, calcium is 8.2, magnesium 3, urine osmolality 276. Random urine sodium is 30. ASSESSMENT: 1. Hyponatremia associated with low urine osmolality and low blood pressure. Add sodium chloride tablets. Patient is maintained on normal saline, however, his serum sodium has decreased from yesterday. Blood pressure remains low and patient is maintained on midodrine as well. I will recheck a sodium in about 4-6 hours. 2. Metabolic acidosis maintained on oral sodium bicarb. 3. Hyperkalemia with fairly preserved renal function with serum creatinine 0.75, most likely related to urine retention. Plan is add sodium chloride tablets, insert Encinas catheter for now as patient does not have enough home supplies and this will also help prevent any further retention as patient had 1200 mL of urine obtained from a self catheterization earlier today. 4. Urine retention. Ultrasound of the abdomen done yesterday did not comment on the kidneys. The patient had a CAT scan of the abdomen in September of 2019 which did not show any hydronephrosis. MMODL / IJN: [id number] /
--- NOTE | 2020-05-26 18:08 | PN ---
PROGRESS NOTE DATE OF SERVICE: 05/26/2020 CHIEF COMPLAINTS: Chest pain. HISTORY OF PRESENT ILLNESS: This 89-year-old gentleman was admitted with significant chest pain and had elevated troponin indicating possible acute [id number]-elevation myocardial infarction. The patient apparently had chronically elevated troponin which is fluctuating. The patient being closely monitored at this time. The patient also had hyponatremia and hyperkalemia as well. Nephrology has seen the patient. Cardiology consultation underway also. Cardiology as recommended possible stress test once the renal functions are optimized to see any ischemia in the LAD distribution for another cardiac catheterization. The patient being closely monitored. PAST MEDICAL HISTORY: Reviewed. REVIEW OF SYSTEMS: CARDIOVASCULAR: As mentioned earlier. RESPIRATORY: As mentioned earlier. GI: As mentioned earlier. : No dysuria. NERVOUS SYSTEM: No numbness or weakness. CURRENT MEDICATIONS: Reviewed and include: Aspirin, Eliquis, Lipitor, Imdur, ProAmatine, Nitrostat. PHYSICAL EXAM: Patient is alert, oriented x2. Pulse is 64. Blood pressure 91/56, respirations 16, temp is normal. Pulse ox 92% on room air. HEENT: Conjunctivae normal. NECK: No JVD. CARDIOVASCULAR: S1, S2 muffled. RESPIRATORY: Breath sounds diminished in the bases. A few scattered rhonchi and crackles. ABDOMEN: Soft, nontender. LEGS are no edema. No swelling. NERVOUS SYSTEM: No focal deficits. LAB STUDIES: CBC within normal limits. Platelets 121. Sodium 129, potassium 5.6. Total bilirubin is 3 and AST is 115, ALT is 57. Troponin 0.521. ASSESSMENT: 1. Chest pain, possible unstable angina. 2. Elevated troponin, possibly chronically elevated at values at 0.521 per Cardiology. 3. Hyponatremia. 4. Hyperkalemia. 5. Elevated bilirubin and AST/ALT, possibly hepatitis. 6. Hyponatremia. 7. Hyperkalemia. 8. History of atrial fibrillation, chronic. 9. History of coronary artery disease. 10.History of congestive heart failure. 11.History of chronic liver disease. 12.History of myocardial infarction. 13.History of degenerative joint disease. 14.History of hypothyroidism. 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 16.History of ascites with multiple paracentesis. 17.History of degenerative joint disease. 18.History of hard of hearing. 19.History of back surgery. 20.History of prostate surgery. 21.NO CODE, NO CPR, NO VENT. RECOMMENDATIONS AND DISCUSSION: This 89-year-old gentleman who presented with multiple complex medical issues, we will monitor the patient closely, continue the current medications, management and symptomatic treatment. Otherwise, at this time, I recommend continued antiplatelet agents, anticoagulants. Closely follow with Cardiology and nephrology. The patient had idiopathic cirrhosis of the liver. We will repeat labs. Continue to monitor. Further recommendations to follow. Home medication will be reconciled. The patient is started on sodium chloride tablets also. The elevated troponin also will be addressed along with Cardiology. MMODL / IJN: [id number] /
[2020-05-26] MEDS: hydrOXYzine HCL 25 MG TAB PO SCH (20:24)
[2020-05-26] MEDS: SODIUM CHLORIDE TAB 1 GM TAB PO SCH (20:24)
[2020-05-27] MEDS: SODIUM CHLORIDE 0.9% 1,000 ML IV SCH (05:10)
[2020-05-27 07:31] LABS: Basophils % (A) 0 %; Eosinophils # (A) 0.2 k/uL (0-0.7); Eosinophils % (A) 2 %; HCT 40.5 % (39.0-53.0); HGB 13.3 gm/dL (13.0-17.5); Lymphocytes # (A) 0.3 k/uL (1.0-4.8); Lymphocytes % (A) 4 %; MCH 31.9 pg (25.0-35.0); MCHC 32.8 g/dL (31.0-37.0); MCV 97.5 fL (80.0-100.0); Mean Platelet Volume 7.8; Monocytes # (A) 0.4 k/uL (0-1.0); Monocytes % (A) 5 %; Neutrophils # (A) 7.3 k/uL (1.3-7.7); Neutrophils % (A) 88 %; Platelet Count 114 k/uL (150-450); RBC 4.16 m/uL (4.30-5.90); WBC 8.3 k/uL (3.8-10.6)
[2020-05-27 07:44] LABS: ALT 83 U/L (4-49); AST 93 U/L (17-59); African American GFR (CKD) >90 (>60 ml/min/1.73 sqM); Albumin 2.8 g/dL (3.5-5.0); Alkaline Phosphatase 180 U/L (38-126); Anion Gap 3 mmol/L; Blood Urea Nitrogen 59 mg/dL (9-20); Calcium 7.8 mg/dL (8.4-10.2); Carbon Dioxide 20 mmol/L (22-30); Chloride 99 mmol/L (98-107); Glucose 101 mg/dL (74-99); Magnesium 2.1 mg/dL (1.6-2.3); Non-African American GFR(CKD) 80 (>60 ml/min/1.73 sqM); Potassium 5.2 mmol/L (3.5-5.1); Sodium 122 mmol/L (137-145); Total Bilirubin 2.8 mg/dL (0.2-1.3); Total Protein 5.5 g/dL (6.3-8.2)
[2020-05-27] MEDS: SODIUM BICARBONATE TAB 650 MG TAB PO SCH ×2 (08:52→21:21)
[2020-05-27] MEDS: MIDODRINE 5 MG TAB PO SCH ×3 (08:52→15:12)
[2020-05-27] MEDS: APIXABAN 2.5 MG TABLET PO SCH (08:52)
[2020-05-27] MEDS: ATORVASTATIN 40 MG TAB PO SCH (08:52)
[2020-05-27] MEDS: ISOSORBIDE MONONITRATE ER 30 MG TAB.ER.24H PO SCH (08:52)
[2020-05-27] MEDS: ASPIRIN 325 MG TAB PO SCH (08:52)
[2020-05-27] MEDS: LEVOTHYROXINE 88 MCG TAB PO SCH (08:52)
[2020-05-27] MEDS: SODIUM CHLORIDE TAB 1 GM TAB PO SCH ×2 (08:54→21:22)
--- NOTE | 2020-05-27 13:29 | PN ---
PROGRESS NOTE Patient is seen for followup for hyponatremia. Patient's serum sodium is staying at about 121-122. He was started on sodium chloride tablets as blood pressure has been staying low and urine osmolality was on the lower side. The patient also has history of urine retention for which she is maintained on straight catheterizations. No significant complaints this morning. EXAMINATION: Today blood pressure was 92/52, heart rate 67 per minute, he is afebrile. Examination of the heart S1, S2. Examination of the lungs, bilateral breath sounds are heard. Abdomen is soft, nontender. Examination of lower extremities shows no evidence of edema. 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 LABS: Show sodium 122, potassium 5.2, chloride 99, BUN 59, serum creatinine 0.78. ASSESSMENT: 1. Hyponatremia, currently euvolemic with blood pressure on the lower side which is chronic and for which patient is maintained on midodrine. The cortisol level was not low during this admission. TSH was also within range. The patient has been started on sodium chloride tablets. However, serum sodium is only slightly better than yesterday. I will give him a dose of Samsca today and patient is encouraged to maintain adequate protein intake. 2. History of urine retention. Patient self catheterizes for many years now. We will continue with that during his hospitalization. 3. Metabolic acidosis maintained on oral sodium bicarb. 4. Hyperkalemia associated with some degree of urine retention, currently self catheterizing. Continue to monitor for now. PLAN: Continue with sodium chloride tabs. Add a dose of Samsca today and repeat sodium in a.m. MMODL / IJN: [id number] /
[2020-05-27] MEDS ORDERED: TOLVAPTAN 15 MG 1/2 TABLET PO ONE (15:00)
--- NOTE | 2020-05-27 17:28 | PN ---
PROGRESS NOTE DATE OF SERVICE: 05/27/2020 This 89-year-old man who was admitted chest pain had possible unstable angina. The troponins elevated, which is fluctuating also which was rather chronic in nature of undetermined etiology per Cardiology. Cardiology is planning possible stress test to decide any ischemia in the LAD region and the patient has also had a hyponatremia which possibly multifactorial. The patient was given additional salt supplementation, but sodium was still holding around 122, so Dr. Swartz is planning a short course of Samca. Other than that, the patient also had an abdominal ultrasound looking for any paracentesis. The patient had previous history of liver cirrhosis with recurrent ascites and repeat abdominal paracentesis. Currently, there is only a very small amount of fluid was noted. The patient is slightly generally weak at this time. Patient had multiple skin tears on the arms. The patient is followed by Dr. Palomares in the outpatient setting. PAST MEDICAL HISTORY: Reviewed. REVIEW OF SYSTEMS: Cardiovascular system: No angina or palpitations. Respiratory: As mentioned earlier. GI mentioned earlier. : No dysuria. NERVOUS SYSTEM: No numbness or weakness. CURRENT MEDICATION: Eliquis, aspirin, Lipitor, Atarax, Imdur, Synthroid, ProAmatine, Nitrostat, sodium bicarb tablets. PHYSICAL EXAM: Patient is alert, oriented x3. Pulse 81, blood pressure 102/61, respirations 16, temp 98.3, pulse ox 96% on room air. HEENT: Conjunctivae normal. Oral mucosa moist. NECK is no jugular venous distention. No carotid bruit. No lymph node enlargement. CARDIOVASCULAR: S1, S2 muffled. No S3, no S4. RESPIRATORY: Breath sounds diminished in the bases. A few scattered rhonchi. ABDOMEN: Soft. No ascites. LEGS: No edema. No swelling. NERVOUS SYSTEM: No focal deficits. LABS: Hemoglobin 13.2, sodium 122, potassium 5.2, and total bilirubin is 2.8 and AST is 93 and ALT is 83. Troponin is noted. ASSESSMENT: 1. Chest pain, possible unstable angina, present on admission. 2. Elevated troponin, possibly chronically elevated with some fluctuations in values at 0.521 per Cardiology. 3. Hyponatremia, multifactorial. 4. Hyperkalemia. 5. Elevated bilirubin, AST, ALT possibly secondary to chronic liver disease. 6. History of chronic liver disease and cirrhosis of the liver with recurrent ascites and multiple paracentesis. 7. Hyponatremia. 8. Hyperkalemia. 9. History of atrial fibrillation, chronic. 10.History of coronary artery disease. 11.History of congestive heart failure. 12.History of myocardial infarction. 13.History of degenerative joint disease. 14.History of hypothyroidism. 15.History of liver cirrhosis secondary to possible caused by medications. 16.History of ascites, multiple paracentesis. 17.History of degenerative joint disease. 18.Hard of hearing. 19.History of back surgery. 20.History of prostate surgery. 21.NO CODE. NO CPR. NO VENT. RECOMMENDATIONS AND DISCUSSION: In this 89-year-old gentleman who presented with multiple complex medical issues, at this time, I recommend continue the current medication. Continue with medical treatment for coronary disease and closely follow with Cardiology for possible stress test/cardiac catheterization. Otherwise, we will repeat the labs and also follow closely with Nephrology. Dr. Swartz is planning some SAMCA. Otherwise repeat labs will be ordered. Prognosis guarded because of multiple complex medical issues. Further recommendations to follow. MMODL / IJN: [id number] /
[2020-05-27] MEDS: hydrOXYzine HCL 25 MG TAB PO SCH (21:22)
[2020-05-28 09:29] LABS: Basophils % (A) 0 %; Eosinophils # (A) 0.1 k/uL (0-0.7); Eosinophils % (A) 2 %; HCT 40.3 % (39.0-53.0); Lymphocytes # (A) 0.3 k/uL (1.0-4.8); Lymphocytes % (A) 4 %; MCH 31.1 pg (25.0-35.0); MCHC 32.3 g/dL (31.0-37.0); MCV 96.4 fL (80.0-100.0); Mean Platelet Volume 7.4; Monocytes # (A) 0.3 k/uL (0-1.0); Monocytes % (A) 4 %; Neutrophils # (A) 6.4 k/uL (1.3-7.7); Neutrophils % (A) 90 %; Platelet Count 122 k/uL (150-450); RBC 4.18 m/uL (4.30-5.90); RDW 13.5 % (11.5-15.5); WBC 7.1 k/uL (3.8-10.6)
[2020-05-28 09:44] LABS: Albumin 2.9 g/dL (3.5-5.0); Calcium 7.9 mg/dL (8.4-10.2); Potassium 5.3 mmol/L (3.5-5.1); Total Protein 5.6 g/dL (6.3-8.2)
[2020-05-28] MEDS: SODIUM CHLORIDE TAB 1 GM TAB PO SCH ×2 (10:07→21:50)
[2020-05-28] MEDS: LEVOTHYROXINE 88 MCG TAB PO SCH (10:07)
[2020-05-28] MEDS: ASPIRIN 325 MG TAB PO SCH (10:08)
[2020-05-28] MEDS: MIDODRINE 5 MG TAB PO SCH ×3 (10:08→16:57)
[2020-05-28] MEDS: SODIUM BICARBONATE TAB 650 MG TAB PO SCH ×2 (10:08→21:50)
[2020-05-28] MEDS: ATORVASTATIN 40 MG TAB PO SCH (10:08)
[2020-05-28] MEDS: ISOSORBIDE MONONITRATE ER 30 MG TAB.ER.24H PO SCH (10:09)
[2020-05-28] MEDS: APIXABAN 2.5 MG TABLET PO SCH (10:09)
[2020-05-28] MEDS ORDERED: TOLVAPTAN 30 MG TABLET PO ONE (11:23)
--- NOTE | 2020-05-28 14:48 | PN ---
PROGRESS NOTE Patient is seen for followup for hyponatremia. His serum sodium is staying at 121 to 122 and has not been improving. Urine osmolality was on the lower side at 276. Patient did receive a dose of Samsca yesterday and his sodium has not improved. Blood pressure is staying in on the lower side. Patient is also maintained on sodium chloride tablets. PHYSICAL EXAMINATION: Today patient is comfortable. Blood pressure 100/59, heart rate 83 per minute he is afebrile. Examination of the heart S1, S2. Examination of the lungs, bilateral breath sounds are heard. Abdomen is soft, nontender. Examination of the lower extremities shows no evidence of edema. DRUG PURCHASER exam grossly intact. LABS: Show sodium 121 today, potassium 5.3, chloride 96, CO2 is 20, BUN 52, serum creatinine 0.85. ASSESSMENT: 1. Hyponatremia. Patient is currently euvolemic, although blood pressure is on the lower side, but this is chronic. He is maintained on midodrine. Cortisol level was not low. The patient is maintained on sodium chloride tabs, which I will continue. He is not hypervolemic at this time. I will also repeat another dose of Samsca but 30 mg today. 2. Metabolic acidosis maintained on sodium bicarb. 3. Mild hyperkalemia associated with mild acidosis given the hyponatremia and hyperkalemia. Serum and there is high suspicion for adrenal insufficiency along with low blood pressure. However, serum cortisol level has not been low on multiple occasions. The patient might benefit from Florinef. 4. Urine retention with self catheterization for many years now. PLAN: Repeat Samsca today 30 mg. Continue with sodium chloride tabs. Continue with sodium bicarb for metabolic acidosis. Consider Florinef given the mild hyperkalemia, hyponatremia, and hypotension. MMODL / IJN: [id number] /
[2020-05-28] MEDS: hydrOXYzine HCL 25 MG TAB PO SCH (21:50)
--- NOTE | 2020-05-29 05:15 | PN ---
PROGRESS NOTE DATE OF SERVICE: 05/28/2020 This 89-year-old gentleman who was admitted with chest pain also had elevated troponins. The troponins are rather chronically elevated and Cardiology and Nephrology is following the patient closely. No chest pain. No palpitations. No fever. PHYSICAL EXAMINATION: The patient is alert and oriented x3. The pulse is 70, blood pressure 93/57, respiration 18, temperature normal, pulse ox 95% on room air. HEENT: Conjunctivae normal. NECK: No jugular venous distention. CARDIOVASCULAR: S1, S2 muffled. RESPIRATORY: Breath sounds diminished at the bases. No rhonchi, no crackles. ABDOMEN: Soft, nontender. No mass palpable. LEGS: No edema. No swelling. NERVOUS SYSTEM: No focal deficits. LABS: WBC 7.1, hemoglobin 13, sodium 121, potassium 5.3. Troponin is noted. ASSESSMENT: 1. Chest pain possible unstable angina, present on admission. 2. Elevated troponin, possibly chronically elevated with some fluctuation in values currently at 0.521. 3. Hyponatremia, multifactorial. 4. Hyperkalemia. 5. Elevated bilirubin, AST, ALT possibly secondary to chronic liver disease. 6. History of chronic liver disease and cirrhosis of the liver with recurrent ascites with multiple paracentesis, currently no evidence of significant ascites. 7. Hyponatremia. 8. Hyperkalemia. 9. History of atrial fibrillation chronic. 10.History of coronary artery disease. 11.History of congestive heart failure. 12.History of myocardial infarction. 13.History of degenerative joint disease. 14.History of hypothyroidism. 15.History of liver cirrhosis secondary to possibly caused by medications. 16.History of ascites, multiple paracentesis. 17.History of hard of hearing. 18.History of back surgery. 19.History of prostate surgery. 20.NO CODE, NO CPR, NO VENT. RECOMMENDATIONS AND DISCUSSION: I recommend to continue current medications, continue symptomatic treatment. Otherwise at this time closely follow with Cardiology. Please refer to Cardiology notes for further information. Prognosis guarded. Further cardiac workup per Cardiology. Further recommendations to follow. MMODL / IJN: [id number] /
[2020-05-29 07:15] LABS: Calcium 7.7 mg/dL (8.4-10.2); Potassium 4.5 mmol/L (3.5-5.1)
[2020-05-29] MEDS: ATORVASTATIN 40 MG TAB PO SCH (08:56)
[2020-05-29] MEDS: LEVOTHYROXINE 88 MCG TAB PO SCH (08:56)
[2020-05-29] MEDS: SODIUM CHLORIDE TAB 1 GM TAB PO SCH ×3 (08:56→22:25)
[2020-05-29] MEDS: ISOSORBIDE MONONITRATE ER 30 MG TAB.ER.24H PO SCH (08:56)
[2020-05-29] MEDS: ASPIRIN 325 MG TAB PO SCH (08:56)
[2020-05-29] MEDS: SODIUM BICARBONATE TAB 650 MG TAB PO SCH ×2 (08:56→22:22)
[2020-05-29] MEDS: MIDODRINE 5 MG TAB PO SCH ×3 (08:56→17:08)
[2020-05-29] MEDS: APIXABAN 2.5 MG TABLET PO SCH (08:57)
[2020-05-29] MEDS ORDERED: FLUDROCORTISONE 0.1 MG TAB PO STA (09:39)
--- NOTE | 2020-05-29 14:43 | PN ---
PROGRESS NOTE Patient is seen for followup for hyponatremia. His serum sodium has not increased significantly since admission. Patient's blood pressure remains low. He is on midodrine, cortisol level was not low. Potassium has been on the higher side as well. Patient received a dose of Samsca yesterday which has not improved his sodium at all. Given his clinical picture suggestive of some degree of adrenal insufficiency, I will give him a dose of Florinef today. PHYSICAL EXAMINATION: Blood pressure was 99/57, heart rate 78 per minute, he is afebrile. Examination of the heart S1, S2. Examination of the lungs, bilateral breath sounds are heard. Abdomen is soft, nontender. Examination of the lower extremities shows no significant edema. 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 LABS: Show sodium of 121, potassium 4.5, chloride 98, CO2 is 19, BUN 55, serum creatinine 0.95. ASSESSMENT: 1. Hyponatremia with urine osmolality at 276, multifactorial mostly associated with low urinary osmoles. The patient is encouraged to increase his protein intake. He is maintained on sodium chloride tablets. He also received a dose of Samsca yesterday. However, his sodium has not improved much. Given his clinical picture suggestive of adrenal insufficiency with ongoing hypotension, hyponatremia, mild hyperkalemia and acidosis, I will give him a dose of Florinef, although his serum cortisol level was not low. I will repeat a serum sodium this afternoon. 2. Urine retention, currently maintained on self catheterization. 3. Mild hyperkalemia associated with underlying metabolic acidosis, currently improved and maintained on sodium bicarb. PLAN: Increase sodium chloride tabs. Add Florinef, repeat sodium this afternoon. MMODL / IJN: [id number] /
--- NOTE | 2020-05-29 18:40 | PN ---
PROGRESS NOTE DATE OF SERVICE: 05/29/2020 This 89-year-old gentleman who was admitted with chest pain had elevated troponin. Cardiology is following the patient closely. Patient also had complaints of weakness. No chest pain. No palpitations. No fever. PHYSICAL EXAMINATION: Alert and oriented x3. Pulse is 61. Blood pressure 89/56, respiration 18, temperature 98.2, pulse ox 94% on room air. HEENT: Conjunctivae normal. NECK: No jugular venous distention. CARDIOVASCULAR SYSTEM: S1, S2 muffled. RESPIRATORY SYSTEM: Breath sounds diminished at the bases. Bilateral scattered rhonchi and crackles. ABDOMEN: Soft, non-tender. LEGS: No edema. No swelling. NERVOUS SYSTEM: No focal deficit. LABS: Sodium 121. Other labs are noted. BUN is 55. ASSESSMENT: 1. Chest pain; possible unstable angina, present on admission. 2. Elevated troponin, possibly chronically elevated with some fluctuation in the values. Currently it is 0.521. 3. Hyponatremia, multifactorial. 4. Relative hypotension. 5. Hyperkalemia. 6. Elevated bilirubin, AST, ALT, possibly secondary to chronic liver disease. 7. History of chronic liver disease and cirrhosis of the liver with recurrent ascites with multiple paracenteses. Currently no evidence of any significant ascites. 8. Hyponatremia. 9. Hyperkalemia. 10.History of atrial fibrillation, chronic. 11.History of coronary artery disease. 12.History of congestive heart failure. 13.History of myocardial infarction. 14.History of degenerative joint disease. 15.History of hypothyroidism. 16.History of liver cirrhosis secondary to medications. 17.History of ascites with multiple paracenteses. 18.History of hard of hearing. 19.History of back surgery. 20.History of prostate surgery. 21.NO CODE, NO CPR, NO VENT. RECOMMENDATIONS AND DISCUSSION: I recommend to continue current medications, continue with the monitoring, symptomatic treatment. PT/OT evaluation. Possible ECF rehab. Otherwise, prognosis is extremely guarded because of multiple complex medical issues. Further recommendations to follow. MMODL / IJN: [id number] /
[2020-05-29] MEDS: hydrOXYzine HCL 25 MG TAB PO SCH (22:22)
[2020-05-30] MEDS: MIDODRINE 5 MG TAB PO SCH ×3 (09:35→17:36)
[2020-05-30] MEDS: SODIUM BICARBONATE TAB 650 MG TAB PO SCH ×2 (09:35→21:08)
[2020-05-30] MEDS: ISOSORBIDE MONONITRATE ER 30 MG TAB.ER.24H PO SCH (09:35)
[2020-05-30] MEDS: ATORVASTATIN 40 MG TAB PO SCH (09:35)
[2020-05-30] MEDS: LEVOTHYROXINE 88 MCG TAB PO SCH (09:35)
[2020-05-30] MEDS: APIXABAN 2.5 MG TABLET PO SCH (09:35)
[2020-05-30] MEDS: SODIUM CHLORIDE TAB 1 GM TAB PO SCH ×3 (09:36→21:09)
[2020-05-30] MEDS: ASPIRIN 325 MG TAB PO SCH (09:36)
[2020-05-30 10:02] LABS: Potassium 4.2 mmol/L (3.5-5.1)
--- NOTE | 2020-05-30 15:47 | PN ---
PROGRESS NOTE Patient is seen for followup for hyponatremia. Yesterday patient received a dose of Florinef. His serum sodium dropped to 119; however, it is back up to 121 today. Patient is maintained on sodium chloride tabs and he has received a couple of doses of Samsca as well. His serum sodium has not changed significantly. Urine osmolality was initially at 276, and it was reordered this morning. Overall patient feels well. He denies any complaints. PHYSICAL EXAMINATION: Blood pressure 96/51, heart rate 91 per minute. He is afebrile. EXAMINATION OF THE HEART: S1 and S2. EXAMINATION OF LUNGS: Bilateral breath sounds are heard. ABDOMEN: Soft, non-tender. Examination of lower extremities shows no evidence of edema. 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 LABS: Labs show sodium 121, potassium 4.2, chloride 94. CO2 is 20, BUN 53, serum creatinine 0.98, albumin 2.9. ASSESSMENT: 1. Hyponatremia, currently euvolemic. Blood pressure has been running low, for which patient is maintained on midodrine. Urine osmolality was not high on initial admission. The urine osmolality has been reordered today. Patient did not respond much to Samsca. He is currently maintained on sodium chloride tabs as well, and I will start him on 3% saline. 2. Urine retention, maintained on self-catheterization. 3. Mild hyperkalemia associated with underlying metabolic acidosis with clinical suspicion for mineralocorticoid deficiency, status post mineralocorticoid in the form of Florinef. However, serum sodium did not improve. PLAN: Start 3% saline and repeat sodium in 3 to 4 hours. MMODL / IJN: [id number] /
--- NOTE | 2020-05-30 20:29 | PN ---
PROGRESS NOTE DATE OF SERVICE: 05/30/2020 This 89-year-old gentleman with a past medical history of multiple medical problems was admitted with chest pain and possible unstable angina. He also has multiple other medical problems. The patient has continued hypotension as well as hyponatremia. Dr. Swartz is following the patient closely. Sodium is currently at 119 this morning and 121. If the patient's sodium keeps falling, Dr. Swartz is planning 3% saline tomorrow. Past medical history reviewed. REVIEW OF SYSTEMS: CARDIOVASCULAR SYSTEM: No angina, palpitations. RESPIRATORY SYSTEM: As mentioned earlier. GI: As mentioned earlier. : No dysuria or retention. NERVOUS SYSTEM: No numbness, weakness. CURRENT MEDICATIONS: Reviewed. They include Eliquis, aspirin, Lipitor, Atarax, Imdur, Synthroid, ProAmatine, Nitrostat. PHYSICAL EXAMINATION: Patient is alert, oriented x3. Pulse 71, blood pressure 93/52, respirations 16, temperature 97.4, pulse ox 94% on room air. HEENT: Conjunctivae normal. NECK: No jugular venous distention. CARDIOVASCULAR SYSTEM: S1, S2 muffled. RESPIRATORY SYSTEM: Breath sounds diminished at the bases. Scattered rhonchi. ABDOMEN: Soft, non-tender. LEGS: No edema. No swelling. NERVOUS SYSTEM: No focal deficit. LABS: Sodium 121. Otherwise platelets are 122. Other labs are noted. ASSESSMENT: 1. Chest pain, possible unstable angina, present on admission. 2. Elevated troponin, possibly chronically elevated with some fluctuation in the values, currently at 0.521. 3. Hyponatremia, multifactorial. 4. Relative hypotension. 5. Hyperkalemia. 6. Elevated bilirubin, AST, ALT, possibly secondary to chronic liver disease. 7. History of chronic liver disease and cirrhosis of the liver with recurrent ascites and multiple paracenteses. Currently no evidence of any significant ascites. 8. Hyponatremia. 9. Atrial fibrillation, chronic. 10.Coronary artery disease. 11.History of congestive heart failure. 12.History of myocardial infarction. 13.History of degenerative joint disease. 14.History of hypothyroidism. 15.History of liver cirrhosis secondary to medications. 16.History of ascites with multiple paracenteses. 17.Hard of hearing. 18.Back surgery. 19.History of prostate surgery. 20.NO CODE, NO CPR, NO VENT. RECOMMENDATIONS AND DISCUSSION: I recommend to continue current medications, continue with the monitoring, symptomatic treatment. Otherwise at this time I recommend continuing the electrolytes and sodium; 3% saline if the sodium is low. Otherwise, continue the PT/OT evaluation. It seems like the patient has excellent family support. The patient might be able to go home once the above-mentioned multiple medical issues are resolved or improved. Once again, the prognosis is guarded. Further recommendations to follow. MMODL / IJN: [id number] /
[2020-05-30] MEDS: hydrOXYzine HCL 25 MG TAB PO SCH (21:09)
[2020-05-30] MEDS: FLUDROCORTISONE 0.1 MG TAB PO SCH (21:29)
[2020-05-30 23:31] LABS: Glucose,Whole Blood 111 mg/dL (75-99)
[2020-05-31] MEDS ORDERED: SODIUM CHLORIDE 3%(HYPERTONIC) 500 ML IV SCH
[2020-05-31 04:26] LABS: Basophils % (A) 0 %; Eosinophils # (A) 0.1 k/uL (0-0.7); Eosinophils % (A) 2 %; HCT 36.6 % (39.0-53.0); HGB 11.9 gm/dL (13.0-17.5); Lymphocytes # (A) 0.2 k/uL (1.0-4.8); Lymphocytes % (A) 3 %; MCH 31.5 pg (25.0-35.0); MCHC 32.5 g/dL (31.0-37.0); MCV 96.9 fL (80.0-100.0); Mean Platelet Volume 7.5; Monocytes # (A) 0.1 k/uL (0-1.0); Monocytes % (A) 2 %; Neutrophils # (A) 6.8 k/uL (1.3-7.7); Neutrophils % (A) 93 %; Platelet Count 146 k/uL (150-450); RBC 3.78 m/uL (4.30-5.90); RDW 13.5 % (11.5-15.5); WBC 7.3 k/uL (3.8-10.6)
[2020-05-31 04:46] LABS: Calcium 7.8 mg/dL (8.4-10.2); Potassium 4.6 mmol/L (3.5-5.1)
[2020-05-31] MEDS: SODIUM CHLORIDE 3%(HYPERTONIC) 500 ML IV SCH ×2 (05:36→17:13)
--- NOTE | 2020-05-31 07:39 | XR ---
EXAMINATION TYPE: XR chest 1V portable DATE OF EXAM: 05/31/2020 COMPARISON: Prior chest x-ray 05/25/2020 HISTORY: Cough and shortness of breath TECHNIQUE: Single frontal view of the chest is obtained. FINDINGS: Patient is rotated. Left hemidiaphragm is obscured, there is retrocardiac density. Lucency beneath the right hemidiaphragm may be related to bowel but is indeterminate, overlying artifact pre sent at this level. There is no evident pneumothorax. Aorta is dense. Heart is stable. Nodular densit y persists at the right lung base. IMPRESSION: Left lower lobe atelectasis versus pneumonia and possible associated effusion. Indetermi julio lucency beneath the right hemidiaphragm, consider lateral decubitus view to assess for pneumoper itoneum as indicated versus CT. A Red level critical message alert has been initiated for Tres Acosta [id number] via the [employer] Critical Results System on 05/31/2020 7:37 AM. This message alert has been sent to Tres Acosta [id number] via the preferences provided by the clinician for the receipt of Radiology Critical Findings. Message ID [id number].
[2020-05-31] MEDS: ISOSORBIDE MONONITRATE ER 30 MG TAB.ER.24H PO SCH (08:45)
[2020-05-31] MEDS: ISOSORBIDE MONONITRATE ER 15 MG TAB PO SCH (09:22)
[2020-05-31] MEDS: SODIUM CHLORIDE TAB 1 GM TAB PO SCH ×4 (09:32→23:56)
[2020-05-31] MEDS: ATORVASTATIN 40 MG TAB PO SCH (09:32)
[2020-05-31] MEDS: LEVOTHYROXINE 88 MCG TAB PO SCH (09:32)
[2020-05-31] MEDS: APIXABAN 2.5 MG TABLET PO SCH (09:32)
[2020-05-31] MEDS: ASPIRIN 325 MG TAB PO SCH (09:33)
[2020-05-31] MEDS: MIDODRINE 5 MG TAB PO SCH ×3 (09:33→14:59)
[2020-05-31] MEDS: FLUDROCORTISONE 0.1 MG TAB PO SCH (09:33)
[2020-05-31] MEDS: SODIUM BICARBONATE TAB 650 MG TAB PO SCH ×2 (09:33→23:57)
--- NOTE | 2020-05-31 10:00 | P.CNPUL ---
History of Present Illness Consult date: 05/31/20 Requesting physician: Breonna Zapien Reason for consult: dyspnea, hypoxemia, other Chief complaint: Dyspnea, hypoxemia, hyponatremia, fever History of present illness: 89-year-old white male patient of Dr. Angie Palomares, with past medical history of chronic atrial fibrillation on Eliquis, CAD, chronic CHF, previous history of myocardial infarction, hypothyroidism, chronic liver cirrhosis requiring multiple paracentesis, former smoker, BPH, who was admitted to the hospital on 05/27/2020 when he came in for evaluation of chest pain and was diagnosed with non-ST elevated myocardial infarction. His initial troponin was 0.907, the second third and fourth troponins came back as 0.917, 0.820, 0.521. ProBNP on admission was 10,500. Serum sodium on admission was 120, urine osmolality was 276, urine random sodium was 30, cortisol level was 24, TSH was within normal limit at 2.1. Admission chest x-ray showed bilateral airspace opacities within the central lungs and lower lungs with a suggestion of early pulmonary vascular congestion and infectious process could not be entirely excluded. There was a mention of a prominent nodule within the right lower lobe measuring up to 1.5 cm this was compared to his previous chest x-ray dated 09/18/2019, and appeared roughly unchanged. Going back to 03/14/2018 patient had this right lower lobe nodule at the time measuring 1.6 cm, the size is not increase over the course of [address] chest dated 03/22/2018 showed partially calcified 8mm nodule in the anterior right middle lobe, there was thought to be related to old granulomatous disease. More recent CT of the abdomen and pelvis dated 09/27/2019 showed stable 1.2 cm right middle lobe calcified nodule. Patient was admitted, he was being treated for hyponatremia, acute exacerbation of chronic diastolic CHF. Patient also has a valvular heart disease, with a moderately severe mitral re gurgitation, severe tricuspid regurgitation, echocardiogram showed EF between 50-55%, moderately severe pulmonary hypertension with right-sided pressures of 51.3 mmHg. His sodium levels were thought to be related to hypovolemia related to diuretic therapy, and a recent history of paracentesis on May 11 would removal of 3.6 L. Patient is on Lasix and Aldactone twice daily on a regular basis, no lower extremity edema, blood pressures were low throughout his admission, was systolic in the 80s. Patient denies any fever or chills, admission blood work showing a white blood cell count of 9.0, hemoglobin of 14.1, platelet count of 142, sodium 120, potassium is 5.2, chloride is 91, CO2 is 21, BUN of 119, creatinine is 1.02, AST was 128, ALT was 121, alkaline phosphatase was 224. Patient was evaluated by cardiology and recommended medical treatment, with a plan for a stress test and a possibility of a heart catheterization. Yesterday patient's hyponatremia became worse, patient continu ed to be hypotensive, serum sodium was 119, and a nephrology decided to start the patient on 3% saline. At the same time patient became more short of breath, and patient had the fever with a T-max of 99.9F, coronavirus PCR was sent and is pending at this time. She was placed on supplemental oxygen 4 L, is transferred to the intensive care unit, he seen in intensive care unit this morning where he is resting in bed, appears to be in no acute distress, he is satting about 97% on 4 L, his blood pressure still remains low, 74/53 this morning. He is on 3% hypertonic saline at a rate of 30 ML per hour. No other drips. Is awake and alert, he is responding appropriately, his serum sodium level is 121 today. His white blood cell count is 7.3, hemoglobin of 13.3, serum potassium level is 4.6, BUN of 53 and creatinine 0.87. Denies any chest pain, remains in atrial fibrillation with a controlled rate. He is producing urine, in the order of 75-235 ML per hour. His diuretics in the form of Lasix remain on hold, patient has received Tolvaptan per nephrology, and he is on Florinef, and will be started on Midrin. Review of Systems All systems: negative Constitutional: Reports fatigue, Reports weakness, Denies chills, Denies fever Eyes: denies blurred vision, denies pain Ears, nose, mouth and throat: Denies headache, Denies sore throat Cardiovascular: Denies chest pain, Denies shortness of breath Respiratory: Reports dyspnea, Denies cough Gastrointestinal: Denies abdominal pain, Denies diarrhea, Denies nausea, Denies vomiting Musculoskeletal: Denies myalgias Integumentary: Denies pruritus, Denies rash Neurological: Denies numbness, Denies weakness Psychiatric: Denies anxiety, Denies depression Endocrine: Denies fatigue, Denies weight change Past Medical History Past Medical History: Atrial Fibrillation, Coronary Artery Disease (CAD), Chest Pain / Angina, Heart Failure, Eye Disorder, Hearing Disorder / Deafness, Liver Disease, Myocardial Infarction ([place]), Osteoarthritis (OA), Syncope, Thyroid Disorder Additional Past Medical History / Comment(s): Chronic Afib, 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/ascitis with multiple paracentesis, chronic CHF, 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, BPH with surgery, hypothyroid, sinus drainage, [place] bilaterally with hearing aides, arthritis in back and hands, R eye surgery for membrane not "sealing"-vision is good, Last Myocardial Infarction Date:: 02/2018 History of Any Multi-Drug Resistant Organisms: None Reported Past Surgical History: Back Surgery, Heart Catheterization, Hernia Repair, Joint Replacement, Orthopedic Surgery, Prostate Surgery Additional Past Surgical History / Comment(s): Multiple paracentesis, 2018 car diac cath-treat medically, total L knee arthroplasty, lower back surgery, bilateral carpal tunnel releases, TURP, R inguinal hernia repair, colonoscopies with benign polypectomies, R eye corneal transplant/keratoplasty Past Anesthesia/Blood Transfusion Reactions: No Reported Reaction Past Psychological History: No Psychological Hx Reported Smoking Status: Former smoker Past Alcohol Use History: None Reported Past Drug Use History: None Reported - Past Family History Father Family Medical History: Cancer Additional Family Medical History / Comment(s): Father from pancreas/liver cancer at the age of 65 yrs. Daughter(s) Family Medical History: Cancer Additional Family Medical History / Comment(s): perineal CA Brca1 gene Mother Family Medical History: No Reported History Additional Family Medical History / Comment(s): Mother lived to be 94 yrs old. Medications and Allergies Home Medications Medication Instructions Recorded Confirmed Type Atorvastatin [Lipitor] 40 mg PO DAILY@0800 05/30/19 05/25/20 History Levothyroxine Sodium [Synthroid] 175 mcg PO DAILY@0800 06/02/19 05/25/20 History Apixaban [Eliquis] 2.5 mg PO DAILY@0800 12/05/19 05/25/20 History Sodium Bicarbonate Tab 650 mg PO BID@0800,2100 12/05/19 05/25/20 History Furosemide [Lasix] 40 mg PO DAILY@1600 05/15/20 05/25/20 History Midodrine [ProAmatine] 10 mg PO TID@0800,1200,1600 05/15/20 05/25/20 History Spironolactone [Aldactone] 25 mg PO BID@0800,2100 05/15/20 05/25/20 History hydrOXYzine pamoate [hydrOXYzine 12.5 mg PO HS 05/25/20 05/25/20 History PAMOATE] Allergies Allergy/AdvReac Type Severity Reaction Status Date / Time midodrine 10mg tablets AdvReac Arm Uncoded 05/25/20 07:32 Swelling-see comments Physical Exam Vitals: Vital Signs Temp Pulse Pulse Resp BP BP Pulse Ox 05/31/20 09:00 80 19 98/55 97 05/31/20 08:00 98.5 F 82 16 74/53 97 05/31/20 07:00 96 20 81/50 97 05/31/20 06:00 99.6 F 84 19 92/60 95 05/31/20 04:00 99.9 F H 91 20 107/67 93 L 05/31/20 02:00 84 18 88/65 94 L 05/31/20 00:00 98.5 F 75 19 95/61 95 05/30/20 21:27 97.3 F L 68 16 92/51 96 05/30/20 20:00 16 05/30/20 17:21 71 05/30/20 17:19 97.4 F L 71 16 83/52 95 05/30/20 17:14 97.4 F L 71 16 83/52 95 05/30/20 12:00 96.7 F L 91 16 96/51 99 Intake and Output 05/30/20 05/31/20 05/31/20 22:59 06:59 14:59 Intake Total 120 200 Output Total 915 Balance 120 -715 Intake: IV 200 Sodium Chloride 3%( 200 Hypertonic) 500 ml @ 25 mls/hr IV .Q20H [facility] Rx#: [id number] Oral 120 Output: Urine 915 Other: Voiding Method Indwelling Catheter Indwelling Catheter GENERAL EXAM: Alert, 89-year-old frail looking white male, chronically ill- looking, 4 L of oxygen, pulse ox 97%, resting in bed in the droplet isolation in the ICU. comfortable in no apparent distress. HEAD: Normocephalic/atraumatic. EYES: Normal reaction of pupils, equal size. Conjunctiva pink, sclera white. NOSE: Clear with pink turbinates. THROAT: No erythema or exudates. NECK: No masses, no JVD, no thyroid enlargement, no adenopathy. CHEST: No chest wall deformity. Symmetrical expansion. LUNGS: Equal air entry with no crackles, wheeze, rhonchi or dullness. CVS: Irregular rate and rhythm, normal S1 and S2, no gallops, no murmurs, no rubs ABDOMEN: Soft, nontender. No hepatosplenomegaly, normal bowel sounds, no guarding or rigidity. EXTREMITIES: No clubbing, no edema, no cyanosis, 2+ pulses and upper and lower extremities. MUSCULOSKELETAL: Muscle strength and tone normal. SPINE: No scoliosis or deformity SKIN: Multiple areas of ecchymosis involving arms CENTRAL NERVOUS SYSTEM: Alert and oriented -3. No focal deficits, tone is normal in all 4 extremities. PSYCHIATRIC: Alert and oriented -3. Appropriate affect. Intact judgment and insight. Results - Laboratory Findings CBC and BMP: 05/31/20 04:02 05/31/20 04:02 PT/INR, D-dimer PT 11.2 sec (9.0-12.0) 05/25/20 01:00 INR 1.1 (<1.2) 05/25/20 01:00 Abnormal lab findings: Abnormal Labs 05/25/20 05/25/20 05/25/20 01:00 01:00 01:00 RBC Hgb Hct Plt Count 142 L Neutrophils # 8.0 H Lymphocytes # 0.3 L Sodium 120 L Potassium 5.2 H Chloride 91 L Carbon Dioxide 21 L BUN 119 H* Glucose 107 H POC Glucose (mg/dL) Calcium Total Bilirubin 2.1 H AST 128 H ALT 121 H Alkaline Phosphatase 224 H Troponin I 0.907 H* Total Protein Albumin HDL Cholesterol 05/25/20 05/25/20 05/25/20 03:10 08:45 08:45 RBC Hgb Hct Plt Count Neutrophils # Lymphocytes # Sodium Potassium Chloride Carbon Dioxide BUN Glucose POC Glucose (mg/dL) Calcium Total Bilirubin AST ALT Alkaline Phosphatase Troponin I 0.917 H* 0.818 H* Total Protein Albumin HDL Cholesterol 74 H 05/25/20 05/25/20 05/25/20 08:45 14:53 18:05 RBC Hgb Hct Plt Count Neutrophils # Lymphocytes # Sodium 121 L 123 L 124 L Potassium Chloride 94 L 94 L Carbon Dioxide 20 L 21 L BUN 110 H* 100 H 88 H Glucose 102 H 107 H POC Glucose (mg/dL) Calcium 7.4 L Total Bilirubin AST ALT Alkaline Phosphatase Troponin I Total Protein Albumin HDL Cholesterol 05/26/20 05/26/20 05/26/20 06:47 06:47 14:18 RBC 4.14 L Hgb Hct Plt Count 121 L Neutrophils # Lymphocytes # 0.3 L Sodium 121 L Potassium 5.6 H Chloride 96 L Carbon Dioxide 19 L BUN 80 H Glucose POC Glucose (mg/dL) Calcium 8.2 L Total Bilirubin 3.0 H AST 115 H ALT 97 H Alkaline Phosphatase 179 H Troponin I 0.521 H* Total Protein 5.9 L Albumin 3.0 L HDL Cholesterol 05/27/20 05/27/20 05/28/20 07:02 07:02 08:44 RBC 4.16 L 4.18 L Hgb Hct Plt Count 114 L 122 L Neutrophils # Lymphocytes # 0.3 L 0.3 L Sodium 122 L Potassium 5.2 H Chloride Carbon Dioxide 20 L BUN 59 H Glucose 101 H POC Glucose (mg/dL) Calcium 7.8 L Total Bilirubin 2.8 H AST 93 H ALT 83 H Alkaline Phosphatase 180 H Troponin I Total Protein 5.5 L Albumin 2.8 L HDL Cholesterol 05/28/20 05/29/20 05/29/20 08:44 06:37 16:03 RBC Hgb Hct Plt Count Neutrophils # Lymphocytes # Sodium 121 L 121 L 119 L* Potassium 5.3 H Chloride 96 L Carbon Dioxide 20 L 19 L BUN 52 H 55 H Glucose 159 H 110 H POC Glucose (mg/dL) Calcium 7.9 L 7.7 L Total Bilirubin 3.0 H AST 86 H ALT 75 H Alkaline Phosphatase 178 H Troponin I Total Protein 5.6 L Albumin 2.9 L HDL Cholesterol 05/30/20 05/30/20 05/30/20 09:32 19:23 22:23 RBC Hgb Hct Plt Count Neutrophils # Lymphocytes # Sodium 121 L 119 L* 120 L Potassium Chloride 94 L Carbon Dioxide 20 L BUN 53 H Glucose 147 H POC Glucose (mg/dL) Calcium 8.0 L Total Bilirubin AST ALT Alkaline Phosphatase Troponin I Total Protein Albumin HDL Cholesterol 05/30/20 05/31/20 05/31/20 23:30 04:02 04:02 RBC 3.78 L Hgb 11.9 L Hct 36.6 L Plt Count 146 L Neutrophils # Lymphocytes # 0.2 L Sodium 121 L Potassium Chloride Carbon Dioxide 14 L BUN 53 H Glucose 107 H POC Glucose (mg/dL) 111 H Calcium 7.8 L Total Bilirubin AST ALT Alkaline Phosphatase Troponin I Total Protein Albumin HDL Cholesterol - Diagnostic Findings Chest x-ray: report reviewed, image reviewed CT scan - chest: report reviewed, image reviewed Additional studies: EKG reviewed Assessment and Plan Plan: Assessment: #1. Acute hypoxic respiratory failure related to acute exacerbation of diastolic CHF, and possibility of left lower lobe pneumonia with a possible parapneumonic effusion is not completely excluded, consider COVID 19 pneumonia, with 19 PCR is pending at this time #2. Acute non-ST elevated myocardial infarction #3. Chronic diastolic CHF with preserved EF of 50-55 percent #4. Hyponatremia, thought to be hypovolemic, due to recent history of paracentesis, and diuretic therapy for liver cirrhosis, diuretics on hold, patient received Tolvaptan, currently on 3% hypertonic saline #5. Valvular heart disease, with moderately severe mitral regurgitation, severe tricuspid regurgitation, and pulmonary hypertension with right-sided pressures 51 mmHg #6. Right middle lobe benign nodule, present since September 2017, has remained stable, partially calcified, thought to be related to old granulomatous disease #7. Chronic smoker #8. Coronary artery disease #9. Chronic A. fib on Eliquis #10. Nonalcoholic liver cirrhosis, with recurrent ascites, requiring paracentesis #11. Hypotension, likely related to hypovolemia, and sepsis component may be present related to possibility of left lung pneumonia #12. His history of myocardial infarction #13. History of hypothyroidism #14. Chronic back pain with previous surgery #15. History of BPH with prostate surgery Plan: Continue hypertonic saline per nephrology recommendations, we'll send a pro- calcitonin level, coronavirus PCR is pending at this time, patient is afebrile this morning, blood pressures have improved some, his diuretics remain on hold, his had no nausea vomiting or diarrhea, and he is producing large amount of urine. No difficulty breathing, although still requiring supplemental oxygen, A. fib is controlled, continue oral anticoagulation. No complaints of chest pain, edema close hemodynamic monitoring in the intensive care unit, we'll send blood cultures, send a urine culture, sputum culture, STAT pro-calcitonin, empi luis fernando Rocephin, we'll continue to closely monitor in the intensive care unit. CODE status is DO NOT RESUSCITATE. I performed a history & physical examination of the patient and discussed their management with my nurse practitioner, Cait Carlson. I reviewed the nurse practitioner's note and agree with the documented findings and plan of care. Lung sounds are positive for diminished breath sounds. The findings and the impression was discussed with the patient. I attest to the documentation by the nurse practitioner. Time with Patient: Greater than 30
[2020-05-31] MEDS ORDERED: FUROSEMIDE 10 MG/ML 4 ML VIAL IV STA (11:08)
--- NOTE | 2020-05-31 11:32 | PN ---
PROGRESS NOTE Patient is seen for followup for hyponatremia. He is currently maintained on 3% saline. Serum sodium has not improved. Saline was increased to 30 mL an hour. Patient's sodium came back at 120 from 121. He is complaining of mild shortness of breath today. Patient denies any other significant complaints. PHYSICAL EXAMINATION: On examination today, blood pressure was 70/51, heart rate 77 per minute, patient is afebrile. Examination of the heart S1, S2. Examination of the lungs, bilateral breath sounds are heard. Abdomen is soft, nontender. Examination of the lower extremities shows trace edema bilaterally. [place] [employer] exam grossly intact. LABS: Show sodium of 121 early this morning, potassium 4.6, CO2 is 14, BUN 53, serum creatinine 0.87. ASSESSMENT: 1. Hyponatremia, currently patient is hypervolemic. He is maintained on 3% saline. Serum sodium is not increasing. His serum sodium had dropped with the Florinef. Therefore, I will discontinue the Florinef. Continue with the 3% saline and we will diurese him. I will give him Lasix x1 now. 2. Metabolic acidosis associated with sodium chloride load maintained on oral sodium bicarb. I will change the IV fluids to IV bicarb after the 2 o'clock sodium. 3. History of urine retention, currently with an indwelling Encinas catheter, 24 hour urine output of about 1.2 L. PLAN: DC Florinef, continue 3% saline, Lasix x1 now and then repeat in 4 hours. Repeat sodium in about 3-4 hours and add IV bicarb and repeat lytes this evening as well. MMODL / IJN: [id number] /
[2020-05-31] MEDS: NOREPINEPHRINE 4 MG in SODIUM CHLORIDE 0.9% 250 ML IV SCH (11:55)
[2020-05-31 12:17] LABS: Appearance,Urine Turbid (Clear); Bacteria,Urine Many /hpf; Bilirubin,Urine Negative (Negative); Blood,Urine Large (Negative); Color,Urine Dark Brown; Glucose,Urine (UA) Negative (Negative); Hyaline Casts,Urine 46 /lpf (0-2); Ketones,Urine Negative (Negative); Leukocyte Esterase,Urine Large (Negative); Mucus,Urine Few /hpf; Nitrite,Urine Negative (Negative); PH, Urine 5.5 (5.0-8.0); Protein,Urine 2+ (Negative); RBC,Urine >182 /hpf (0-5); Specific Gravity,Urine 1.019 (1.001-1.035); Squamous Epithelial Cell,Urine 3 /hpf (0-4); Urobilinogen,Urine <2.0 mg/dL (<2.0); WBC,Urine >182 /hpf (0-5)
[2020-05-31] MEDS ORDERED: FUROSEMIDE 10 MG/ML 4 ML VIAL IV ONE (15:00)
[2020-05-31 17:10] LABS: HCT 39.6 % (39.0-53.0); HGB 12.8 gm/dL (13.0-17.5); MCH 31.6 pg (25.0-35.0); MCHC 32.2 g/dL (31.0-37.0); MCV 98.1 fL (80.0-100.0); Mean Platelet Volume 7.6; Platelet Count 156 k/uL (150-450); RBC 4.04 m/uL (4.30-5.90); RDW 13.7 % (11.5-15.5); WBC 15.6 k/uL (3.8-10.6)
--- NOTE | 2020-05-31 21:48 | PN ---
PROGRESS NOTE DATE OF SERVICE: 05/31/2020 This 89-year-old gentleman was admitted with chest pain, acute and elevated troponin; also has severe hyponatremia. The patient has also had hypotension. The patient was transferred to ICU, started on Levophed. The patient also on multiple other medications also. Dr. Swartz's saw the patient as well as Dr. Acosta. Covid-19 is being tested. 3% saline is being given. The serum sodium is constantly being monitored. The patient has some mild fever at 99.8 at this time. Past medical history reviewed. REVIEW OF SYSTEMS: Cardiovascular system: S1, S2 muffled. Respiration as mentioned earlier. GI as mentioned earlier. : As mentioned earlier. NERVOUS SYSTEM: No numbness or weakness. CURRENT MEDICATIONS: Reviewed and include: Eliquis, aspirin, Lipitor, Rocephin, Atarax, Imdur, Synthroid, Nitrostat, midodrine. PHYSICAL EXAM: Patient is alert, oriented x3. Pulse 80. Blood pressure 98/52. Respirations 19, temperature 98.4, pulse ox 97% on 4 L. HEENT: Conjunctivae normal. NECK: No JVD. CARDIOVASCULAR: S1, S2 muffled. RESPIRATIONS: Breath sounds diminished in the bases. A few scattered rhonchi. No crackles. ABDOMEN: Soft, nontender. LEGS are no edema. No swelling. NERVOUS SYSTEM: No focal deficits. LABS: WBC 15.7. Hemoglobin 12.8. UA shows significant RBCs. Stool OB is positive. C difficile negative. ASSESSMENT: 1. Chest pain, possible unstable angina, present on admission. 2. Severe hyponatremia, multifactorial with hypotension. 3. Elevated troponin, possibly chronically elevated with some fluctuation in the values currently 0.521. 4. Relative hypotension. 5. Hyperkalemia. 6. Elevated bilirubin, AST/ALT possibly secondary to chronic liver disease. 7. History of chronic liver disease, cirrhosis of the liver and recurrent ascites and multiple paracentesis, currently no evidence of any signs of ascites. 8. Hyponatremia. 9. Atrial fibrillation, chronic. 10.History of coronary artery disease. 11.History of congestive heart failure, ejection fraction unknown. 12.History of myocardial infarction. 13.History of degenerative joint disease. 14.History of hypothyroidism. 15.History of liver cirrhosis secondary to medications. 16.History of ascites with multiple paracentesis. 17.Hard of hearing. 18.Back surgery. 19.History of prostate surgery. 20.NO CODE, NO CPR, NO VENT. RECOMMENDATIONS AND DISCUSSION: Recommend to continue current medications, continue with monitoring, symptomatic treatment. Otherwise, at this time, continue with 3% saline. Continue with ICU management. Continue Levophed. Monitor blood pressure closely. Otherwise, prognosis guarded. Repeat labs. Further recommendations to follow. Discussed with staff. VIKI / AAMIR: [id number] /
[2020-05-31] MEDS: hydrOXYzine HCL 25 MG TAB PO SCH (23:56)
[2020-06-01 04:45] LABS: Basophils % (A) 0 %; Eosinophils # (A) 0.1 k/uL (0-0.7); Eosinophils % (A) 1 %; HCT 34.6 % (39.0-53.0); HGB 11.7 gm/dL (13.0-17.5); Lymphocytes # (A) 0.1 k/uL (1.0-4.8); Lymphocytes % (A) 1 %; MCH 32.2 pg (25.0-35.0); MCHC 33.7 g/dL (31.0-37.0); MCV 95.4 fL (80.0-100.0); Mean Platelet Volume 7.4; Monocytes # (A) 0.4 k/uL (0-1.0); Monocytes % (A) 4 %; Neutrophils # (A) 11.1 k/uL (1.3-7.7); Neutrophils % (A) 93 %; Platelet Count 151 k/uL (150-450); RBC 3.62 m/uL (4.30-5.90); RDW 13.3 % (11.5-15.5); WBC 11.9 k/uL (3.8-10.6)
[2020-06-01 05:02] LABS: Calcium 7.4 mg/dL (8.4-10.2); Potassium 3.7 mmol/L (3.5-5.1)
[2020-06-01] MEDS ORDERED: SODIUM CHLORIDE 3%(HYPERTONIC) 500 ML IV SCH ×2 (05:30)
[2020-06-01] MEDS: NOREPINEPHRINE 4 MG in SODIUM CHLORIDE 0.9% 250 ML IV SCH ×2 (05:52→22:36)
[2020-06-01] MEDS ORDERED: Potassium Replacement Protocol 1 EACH MISC MISCELLANE PRN (06:10)
[2020-06-01] MEDS ORDERED: POTASSIUM BICARBONATE/CIT AC 20 MEQ TABLET.EFF NG-TUBE SCH (07:00)
[2020-06-01] MEDS ORDERED: TOLVAPTAN 15 MG 1/2 TABLET PO ONE (07:56)
--- NOTE | 2020-06-01 08:02 | XR ---
EXAMINATION TYPE: XR chest 1V portable DATE OF EXAM: 06/01/2020 Comparison: 05/31/2020 Clinical History: 89-year-old male followup Findings: Heart mildly enlarged. Focal retrocardiac and left basilar opacity is unchanged. Calcified granuloma at the right base is unchanged. Impression: Continued focal atelectasis or consolidation at the left base. Previously described lucency below the right hemidiaphragm persists but is less apparent. Again, decu bitus view of the abdomen versus CT to assess for free air as clinically indicated.
[2020-06-01] MEDS: ATORVASTATIN 40 MG TAB PO SCH (08:32)
[2020-06-01] MEDS: ASPIRIN 325 MG TAB PO SCH (08:32)
[2020-06-01] MEDS: LEVOTHYROXINE 88 MCG TAB PO SCH (08:33)
[2020-06-01] MEDS: MIDODRINE 5 MG TAB PO SCH ×3 (08:34→15:28)
[2020-06-01] MEDS: ISOSORBIDE MONONITRATE ER 15 MG TAB PO SCH (08:35)
[2020-06-01] MEDS ORDERED: SODIUM BICARBONATE TAB 650 MG TAB PO SCH (09:00)
[2020-06-01] MEDS ORDERED: SODIUM CHLORIDE 0.9% 1,000 ML IV ONE ×2 (09:29→09:30)
[2020-06-01] MEDS ORDERED: VANCOMYCIN IV PER PHARMACY 1 EACH MISC MISCELLANE PRN ×2 (09:29→09:31)
[2020-06-01] MEDS: VANCOMYCIN 1,500 MG in SODIUM CHLORIDE 0.9% 250 ML IVPB SCH (10:36)
--- NOTE | 2020-06-01 10:49 | P.PN ---
Subjective Progress Note Date: 06/01/20 Principal diagnosis: Sepsis, hyponatremia, shortness of breath, fever 89-year-old white male patient of Dr. Angie Palomares, with past medical history of chronic atrial fibrillation on Eliquis, CAD, chronic CHF, previous history of myocardial infarction, hypothyroidism, chronic liver cirrhosis requiring multiple paracentesis, former smoker, BPH, who was admitted to the hospital on 05/27/2020 when he came in for evaluation of chest pain and was diagnosed with non-ST elevated myocardial infarction. His initial troponin was 0.907, the second third and fourth troponins came back as 0.917, 0.820, 0.521. ProBNP on admission was 10,500. Serum sodium on admission was 120, urine osmolality was 276, urine random sodium was 30, cortisol level was 24, TSH was within normal limit at 2.1. Admission chest x-ray showed bilateral airspace opacities within the central lungs and lower lungs with a suggestion of early pulmonary vascular congestion and infectious process could not be entirely excluded. There was a mention of a prominent nodule within the right lower lobe measuring up to 1.5 cm this was compared to his previous chest x-ray dated 09/18/2019, and appeared roughly unchanged. Going back to 03/14/2018 patient had this right lower lobe nodule at the time measuring 1.6 cm, the size is not increase over the course of [address] chest dated 03/22/2018 showed partially calcified 8mm nodule in the anterior right middle lobe, there was thought to be related to old granulomatous disease. More recent CT of the abdomen and pelvis dated 09/27/2019 showed stable 1.2 cm right middle lobe calcified nodule. Patient was admitted, he was being treated for hyponatremia, acute exacerbation of chronic diastolic CHF. Patient also has a valvular heart disease, with a moderately severe mitral regurgitation, severe tricuspid regurgitation, echocardiogram showed EF between 50-55%, moderately severe pulmonary hypertension with right-sided pressures of 51.3 mmHg. His sodium levels were thought to be related to hypovolemia related to diuretic therapy, and a recent history of paracentesis on May 11 would removal of 3.6 L. Patient is on Lasix and Aldactone twice daily on a regular basis, no lower extremity edema, blood pressures were low throughout his admission, was systolic in the 80s. Patient denies any fever or chills, admission blood work showing a white blood cell count of 9.0, hemoglobin of 14.1, platelet count of 142, sodium 120, potassium is 5.2, chloride is 91, CO2 is 21, BUN of 119, creatinine is 1.02, AST was 128, ALT was 121, alkaline phosphatase was 224. Patient was evaluated by cardiology and recommended medical treatment, with a plan for a stress test and a possibility of a heart catheterization. Yesterday patient's hyponatremia became worse, patient continued to be hypotensive, serum sodium was 119, and a nephrology decided to start the patient on 3% saline. At the same time patient became more short of breath, and patient had the fever with a T-max of 99.9F, coronavirus PCR was sent and is pending at this time. She was placed on supplemental oxygen 4 L, is transferred to the intensive care unit, he seen in intensive care unit this morning where he is resting in bed, appears to be in no acute distress, he is satting about 97% on 4 L, his blood pressure still remains low, 74/53 this morning. He is on 3% hypertonic saline at a rate of 30 ML per hour. No other drips. Is awake and alert, he is responding appropriately, his serum sodium level is 121 today. His white blood cell count is 7.3, hemoglobin of 13.3, serum potassium level is 4.6, BUN of 53 and creatinine 0.87. Denies any chest pain, remains in atrial fibrillation with a controlled rate. He is producing urine, in the order of 75-235 ML per hour. His diuretics in the form of Lasix remain on hold, patient has received Tolvaptan per nephrology, and he is on Florinef, and will be started on Midrin. On 06/01/2020 patient seen in follow-up in the intensive care unit, he is resting comfortably in bed, slightly more weak on today's exam that she was ye day. He is to be in no acute distress, he remains on supplemental oxygen, 4 L/m with a pulse ox of 94-96%, did have a fever with a T-max of 100.5F last night. Remains on 3% hypertonic saline at a rate of 35 ML per hour, nephrology is managing, today's sodium is 124, B1 is 54, creatinine 0.95. White count was up to 15.6 on yesterday's evening labs, and down to 11.9, yesterday we added Rocephin empirically with the suspicion of sepsis. Overnight his blood culture was positive for gram-positive cocci, 10 report is pending, urinalysis came back indicating presence of urinary tract infection, urinary culture is pending, pro- calcitonin level elevated at 1.11. This morning's chest x-ray showing continued focal atelectasis at the left base. patient denies any cough or congestion, his COVID 19 PCR is still pending at this time. Overnight patient also required start of vasopressor support, in the form of Levothroid infusing at 3.5 mics per minute, remains on Florinef. No abdominal pain, no vomiting. No chest pain, no hemoptysis. Objective - Vital Signs Vital signs: Vital Signs Temp 98.2 F 06/01/20 08:00 Pulse 79 06/01/20 10:00 Resp 24 06/01/20 10:00 BP 93/55 06/01/20 10:00 Pulse Ox 94 L 06/01/20 10:00 Intake & Output 05/31/20 06/01/20 06/01/20 18:59 06:59 18:59 Intake Total 352.481 706.661 548 Output Total 1073 1040 325 Balance -720.519 -333.339 223 Weight 78.2 kg Intake: IV 90 230 90 .9 110 40 Sodium Chloride 3%( 90 120 Hypertonic) 500 ml @ 25 mls/hr IV .Q20H SHAINA Rx#: [id number] cefTRIAXone 1 gm In 50 Sodium Chloride 0.9% 50 ml @ 100 mls/hr IVPB Q24HR SH[facility]A Rx#:[id number] Intake, IV Titration 262.481 476.661 140 Amount Norepinephrine 4 mg In 22.481 171.661 Sodium Chloride 0.9% 250 ml @ 0.05 MCG/KG/MIN 14. 535 mls/hr IV .[id number] SH[facility]A Rx#:[id number] Sodium Chloride 3%( 240 30 Hypertonic) 500 ml @ 30 mls/hr IV .[id number] [facility]A Rx #:[id number] Sodium Chloride 3%( 275 140 Hypertonic) 500 ml @ 35 mls/hr IV .[id number] [facility]A Rx #:[id number] Oral 318 Output: Urine 1073 1040 325 Other: Voiding Method Indwelling Catheter Indwelling Catheter # Bowel Movements 1 1 - Exam GENERAL EXAM: Alert, 89-year-old frail looking white male, chronically ill- looking, 4 L of oxygen, pulse ox 97%, resting in bed in the droplet isolation in the ICU. comfortable in no apparent distress. HEAD: Normocephalic/atraumatic. EYES: Normal reaction of pupils, equal size. Conjunctiva pink, sclera white. NOSE: Clear with pink turbinates. THROAT: No erythema or exudates. NECK: No masses, no JVD, no thyroid enlargement, no adenopathy. CHEST: No chest wall deformity. Symmetrical expansion. LUNGS: Equal air entry with no crackles, wheeze, rhonchi or dullness. CVS: Irregular rate and rhythm, normal S1 and S2, no gallops, no murmurs, no rubs ABDOMEN: Soft, nontender. No hepatosplenomegaly, normal bowel sounds, no guarding or rigidity. EXTREMITIES: No clubbing, no edema, no cyanosis, 2+ pulses and upper and lower extremities. MUSCULOSKELETAL: Muscle strength and tone normal. SPINE: No scoliosis or deformity SKIN: Multiple areas of ecchymosis involving arms CENTRAL NERVOUS SYSTEM: Alert and oriented -3. No focal deficits, tone is nor mal in all 4 extremities. PSYCHIATRIC: Alert and oriented -3. Appropriate affect. Intact judgment and insight. - Labs CBC & Chem 7: 06/01/20 03:52 06/01/20 03:52 Labs: Abnormal Lab Results - Last 24 Hours (Table) 05/31/20 05/31/20 05/31/20 Range/Units 10:08 10:13 11:30 WBC (3.8-10.6) k/uL RBC (4.30-5.90) m/uL Hgb (13.0-17.5) gm/dL Hct (39.0-53.0) % Neutrophils # (1.3-7.7) k/uL Lymphocytes # (1.0-4.8) k/uL Sodium 120 L (137-145) mmol/L Carbon Dioxide (22-30) mmol/L BUN (9-20) mg/dL Glucose (74-99) mg/dL Calcium (8.4-10.2) mg/dL Procalcitonin 1.11 H (0.02-0.09) ng/mL Urine Protein 2+ H (Negative) Urine Blood Large H (Negative) Ur Leukocyte Esterase Large H (Negative) Urine RBC >182 H (0-5) /hpf Urine WBC >182 H (0-5) /hpf Urine WBC Clumps Many H (None) /hpf Urine Bacteria Many H (None) /hpf Hyaline Casts 46 H (0-2) /lpf Urine Mucus Few H (None) /hpf 05/31/20 05/31/20 05/31/20 Range/Units 14:33 16:39 19:24 WBC 15.6 H (3.8-10.6) k/uL RBC 4.04 L (4.30-5.90) m/uL Hgb 12.8 L (13.0-17.5) gm/dL Hct (39.0-53.0) % Neutrophils # (1.3-7.7) k/uL Lymphocytes # (1.0-4.8) k/uL Sodium 124 L 123 L (137-145) mmol/L Carbon Dioxide (22-30) mmol/L BUN (9-20) mg/dL Glucose (74-99) mg/dL Calcium (8.4-10.2) mg/dL Procalcitonin (0.02-0.09) ng/mL Urine Protein (Negative) Urine Blood (Negative) Ur Leukocyte Esterase (Negative) Urine RBC (0-5) /hpf Urine WBC (0-5) /hpf Urine WBC Clumps (None) /hpf Urine Bacteria (None) /hpf Hyaline Casts (0-2) /lpf Urine Mucus (None) /hpf 05/31/20 06/01/20 06/01/20 Range/Units 22:16 03:52 03:52 WBC 11.9 H (3.8-10.6) k/uL RBC 3.62 L (4.30-5.90) m/uL Hgb 11.7 L (13.0-17.5) gm/dL Hct 34.6 L (39.0-53.0) % Neutrophils # 11.1 H (1.3-7.7) k/uL Lymphocytes # 0.1 L (1.0-4.8) k/uL Sodium 122 L 124 L (137-145) mmol/L Carbon Dioxide 15 L (22-30) mmol/L BUN 54 H (9-20) mg/dL Glucose 144 H (74-99) mg/dL Calcium 7.4 L (8.4-10.2) mg/dL Procalcitonin (0.02-0.09) ng/mL Urine Protein (Negative) Urine Blood (Negative) Ur Leukocyte Esterase (Negative) Urine RBC (0-5) /hpf Urine WBC (0-5) /hpf Urine WBC Clumps (None) /hpf Urine Bacteria (None) /hpf Hyaline Casts (0-2) /lpf Urine Mucus (None) /hpf Microbiology - Last 24 Hours (Table) 05/31/20 10:08 Blood Culture - Final Blood 05/31/20 11:30 Urine Culture - Preliminary Urine,Voided Assessment and Plan Plan: Assessment: #1. Acute hypoxic respiratory failure multifactorial related to sepsis, acute exacerbation of diastolic CHF, and possibility of left lower lobe pneumonia with a possible parapneumonic effusion is not completely excluded, consider COVID 19 pneumonia, with 19 PCR is pending at this time. Today's chest x-ray on 06/01/2020 showing focal atelectasis and consolidation at the left lung base #2. Septic shock, likely related to urinary tract infection, final culture is pending. #3. Gram-positive cocci bacteremia, final culture is pending #4. Acute non-ST elevated myocardial infarction #5. Chronic diastolic CHF with preserved EF of 50-55 percent #6. Hyponatremia, thought to be hypovolemic, due to recent history of paracentesis, and diuretic therapy for liver cirrhosis, diuretics on hold, patient received Tolvaptan, currently on 3% hypertonic saline #7. Valvular heart disease, with moderately severe mitral regurgitation, severe tricuspid regurgitation, and pulmonary hypertension with right-sided pressures 51 mmHg #8. Right middle lobe benign nodule, present since September 2017, has remained stable, partially calcified, thought to be related to old granulomatous disease #9. Chronic smoker #10. Coronary artery disease #11. Chronic A. fib on Eliquis #12. Nonalcoholic liver cirrhosis, with recurrent ascites, requiring paracentesis #13. Hypotension, likely related to hypovolemia, and sepsis component may be present related to possibility of left lung pneumonia #14. His history of myocardial infarction #15. History of hypothyroidism #16. Chronic back pain with previous surgery #17. History of BPH with prostate surgery Plan: We'll give the patient fluid bolus, 1-2 L, wean vasopressor support, patient now has a component of septic shock related to gram-negative sepsis, likely related to urinary source, and gram-positive cocci in blood cultures, follow blood cultures, will await final results of the blood and urine cultures, continue Rocephin, will add vancomycin. Diuretics will remain on hold, continue oral anticoagulation, chest x-ray has been reviewed, left lung atelectasis or consolidation is stable in appearance, not much in the way of pulmonary symptoms, and it is a consideration although less likely, still awaiting results of the COVID 19 PCR. Maintain droplet precautions, we will continue to closely follow the ICU. I performed a history & physical examination of the patient and discussed their management with my nurse practitioner, Cait Carlson. I reviewed the nurse practitioner's note and agree with the documented findings and plan of care. Lung sounds are positive for diminished breath sounds. The findings and the impression was discussed with the patient. I attest to the documentation by the nurse practitioner. Time with Patient: Greater than 30
[2020-06-01 11:33] LABS: Sodium 133 mmol/L (137-145)
[2020-06-01] MEDS ORDERED: DEXTROSE 5% IN WATER 1,000 ML IV SCH (12:00)
--- NOTE | 2020-06-01 12:25 | PN ---
PROGRESS NOTE The patient is seen for followup for hyponatremia. His serum sodium has been very difficult to treat over the past week, mostly staying around 120-122 mEq/L. The patient was started on 3% saline. He developed volume overload and has received Lasix. The 3% saline was increased this morning and serum sodium just came back at 133. Patient also did get a dose of Samsca. He is currently hypervolemic. Patient has a history of chronic hypotension. He has been hyponatremic with mild hyperkalemia since admission. Therefore there was concern for mineralocorticoid deficiency and he did receive a couple of doses of Florinef which actually worsened his serum sodium level. Therefore, this is now discontinued and patient was started on 3% saline. PHYSICAL EXAMINATION: This morning patient is comfortable. He is not in any acute distress. Blood pressure 82/49, heart rate 64 per minute, patient is afebrile. Examination shows trace edema bilateral lower extremities. [employer] exam is grossly intact. Patient moving all 4 extremities. Some edema is noted of his upper extremities as well. LAB: Shows sodium 124, potassium 3.7, chloride 103, CO2 is 15, BUN 54, serum creatinine 0.9. Repeat sodium was up to 133. ASSESSMENT: 1. Hypervolemic hyponatremia. Initially patient was hypovolemic, but did not respond to normal saline. There was concern for possible mineralocorticoid deficiency, but his serum sodium worsened with Florinef and patient was started on 3% saline. He had received a couple of doses of Samsca previously with no response. Even with the 3%, serum sodium stayed at 122-123 and this was increased to 35 cc early this morning and now the sodium has come up to 133. I will switch to D5W and repeat sodium in another 2-3 hours. 2. Chronic hypotension with no evidence of adrenal insufficiency with cortisol levels checked on multiple occasions being in the 20s and 27. Maintained on midodrine. 3. Metabolic acidosis currently maintained on oral sodium bicarb. 4. Possible pneumonia, started on antibiotics. Coronavirus PCR is currently pending. 5. Possible gastrointestinal bleed. Hemoglobin stable. PLAN: Switched to D5W and repeat sodium in about 3 hours. MMODL / IJN: [id number] /
[2020-06-01] MEDS: ACETAMINOPHEN TAB 325 MG TAB PO PRN (16:01)
--- NOTE | 2020-06-01 17:06 | P.PN ---
Subjective Progress Note Date: 06/01/20 06/01/2020 patient seen in follow-up in the intensive care unit, he is resting comfortably in bed. He is to be in no acute distress, he remains on supplemental oxygen, 4 L/m with a pulse ox of 94-96%, did have a fever with a T-max of 100.5F last night. Remains on 3% hypertonic saline at a rate of 35 ML per hour, nephrology is managing, today's sodium is 124, B1 is 54, creatinine 0.95. White count was up to 15.6 on yesterday's evening labs, and down to 11.9, yesterday we added Rocephin empirically with the suspicion of sepsis. Overnight his blood culture was positive for gram-positive cocci, 10 report is pending, urinalysis came back indicating presence of urinary tract infection, urinary culture is pending, pro- calcitonin level elevated at 1.11. This morning's chest x-ray showing continued focal atelectasis at the left base. patient denies any cough or congestion, his COVID 19 PCR is still pending at this time. Overnight patient also required Levothroid; remains on Florinef. Objective - Vital Signs Vital signs: Vital Signs Temp 98.1 F 06/01/20 04:00 Pulse 50 L 06/01/20 07:00 Resp 19 06/01/20 07:00 BP 93/54 06/01/20 07:00 Pulse Ox 97 06/01/20 07:00 Intake & Output 05/31/20 06/01/20 06/01/20 18:59 06:59 18:59 Intake Total 352.481 706.661 453 Output Total 1073 1040 300 Balance -720.519 -333.339 153 Weight 78.2 kg Intake: IV 90 230 30 .9 110 30 Sodium Chloride 3%( 90 120 Hypertonic) 500 ml @ 25 mls/hr IV .Q20H [facility]A Rx#: [id number] Intake, IV Titration 262.481 476.661 105 Amount Norepinephrine 4 mg In 22.481 171.661 Sodium Chloride 0.9% 250 ml @ 0.05 MCG/KG/MIN 14. 535 mls/hr IV .[id number] [facility] Rx#:[id number] Sodium Chloride 3%( 240 30 Hypertonic) 500 ml @ 30 mls/hr IV .[id number] [facility] Rx #:[id number] Sodium Chloride 3%( 275 105 Hypertonic) 500 ml @ 35 mls/hr IV .[id number] [facility]A Rx #:[id number] Oral 318 Output: Urine 1073 1040 300 Other: Voiding Method Indwelling Catheter Indwelling Catheter # Bowel Movements 1 1 - Exam GENERAL EXAM: Alert, 89-year-old frail looking white male, chronically ill- looking, 4 L of oxygen, pulse ox 97%, resting in bed in the droplet isolation in the ICU. comfortable in no apparent distress. HEAD: Normocephalic/atraumatic. EYES: Normal reaction of pupils, equal size. Conjunctiva pink, sclera white. NOSE: Clear with pink turbinates. THROAT: No erythema or exudates. NECK: No masses, no JVD, no thyroid enlargement, no adenopathy. CHEST: No chest wall deformity. Symmetrical expansion. LUNGS: Equal air entry with no crackles, wheeze, rhonchi or dullness. CVS: Irregular rate and rhythm, normal S1 and S2, no gallops, no murmurs, no rubs ABDOMEN: Soft, nontender. No hepatosplenomegaly, normal bowel sounds, no guarding or rigidity. EXTREMITIES: No clubbing, no edema, no cyanosis, 2+ pulses and upper and lower extremities. - Labs CBC & Chem 7: 06/01/20 03:52 06/01/20 10:54 Labs: Abnormal Lab Results - Last 24 Hours (Table) 05/31/20 05/31/20 05/31/20 Range/Units 10:08 10:13 11:30 WBC (3.8-10.6) k/uL RBC (4.30-5.90) m/uL Hgb (13.0-17.5) gm/dL Hct (39.0-53.0) % Neutrophils # (1.3-7.7) k/uL Lymphocytes # (1.0-4.8) k/uL Sodium 120 L (137-145) mmol/L Carbon Dioxide (22-30) mmol/L BUN (9-20) mg/dL Glucose (74-99) mg/dL Calcium (8.4-10.2) mg/dL Procalcitonin 1.11 H (0.02-0.09) ng/mL Urine Protein 2+ H (Negative) Urine Blood Large H (Negative) Ur Leukocyte Esterase Large H (Negative) Urine RBC >182 H (0-5) /hpf Urine WBC >182 H (0-5) /hpf Urine WBC Clumps Many H (None) /hpf Urine Bacteria Many H (None) /hpf Hyaline Casts 46 H (0-2) /lpf Urine Mucus Few H (None) /hpf 05/31/20 05/31/20 05/31/20 Range/Units 14:33 16:39 19:24 WBC 15.6 H (3.8-10.6) k/uL RBC 4.04 L (4.30-5.90) m/uL Hgb 12.8 L (13.0-17.5) gm/dL Hct (39.0-53.0) % Neutrophils # (1.3-7.7) k/uL Lymphocytes # (1.0-4.8) k/uL Sodium 124 L 123 L (137-145) mmol/L Carbon Dioxide (22-30) mmol/L BUN (9-20) mg/dL Glucose (74-99) mg/dL Calcium (8.4-10.2) mg/dL Procalcitonin (0.02-0.09) ng/mL Urine Protein (Negative) Urine Blood (Negative) Ur Leukocyte Esterase (Negative) Urine RBC (0-5) /hpf Urine WBC (0-5) /hpf Urine WBC Clumps (None) /hpf Urine Bacteria (None) /hpf Hyaline Casts (0-2) /lpf Urine Mucus (None) /hpf 05/31/20 06/01/20 06/01/20 Range/Units 22:16 03:52 03:52 WBC 11.9 H (3.8-10.6) k/uL RBC 3.62 L (4.30-5.90) m/uL Hgb 11.7 L (13.0-17.5) gm/dL Hct 34.6 L (39.0-53.0) % Neutrophils # 11.1 H (1.3-7.7) k/uL Lymphocytes # 0.1 L (1.0-4.8) k/uL Sodium 122 L 124 L (137-145) mmol/L Carbon Dioxide 15 L (22-30) mmol/L BUN 54 H (9-20) mg/dL Glucose 144 H (74-99) mg/dL Calcium 7.4 L (8.4-10.2) mg/dL Procalcitonin (0.02-0.09) ng/mL Urine Protein (Negative) Urine Blood (Negative) Ur Leukocyte Esterase (Negative) Urine RBC (0-5) /hpf Urine WBC (0-5) /hpf Urine WBC Clumps (None) /hpf Urine Bacteria (None) /hpf Hyaline Casts (0-2) /lpf Urine Mucus (None) /hpf Microbiology - Last 24 Hours (Table) 05/31/20 10:08 Blood Culture - Final Blood 05/31/20 11:30 Urine Culture - Preliminary Urine,Voided Assessment and Plan Assessment: 1. Acute hypoxic respiratory failure; multifactorial - Acute exacerbation diastolic CHF - Left lower lobe pneumonia/possible parapneumonic effusion/sepsis - Possible covert 19 vital infection Patient's chest x-ray today shows focal atelectasis and consolidation at left lower lung; patient's blood cultures are positive for gram-negative and gram- positive cocci bacteremia with components of septic shock; patient remains on IV Rocephin and vancomycin - Continue with supplemental oxygen as needed with plan to wean as tolerated - Covert ECF is pending 2. Non-ST elevation HI 3. Hypovolemic hyponatremia; possibly due to recent paracentesis and diuretic therapy; diuretics remain on hold; patient currently on 3% hypertonic saline 4. Chronic atrial fibrillation; remains rate controlled; continue with anticoagulation therapy 5. Hypothyroidism; continue with home dose of levothyroxine DVT prophylaxis; SCDs/systemic anticoagulation CODE STATUS; DO NOT RESUSCITATE
[2020-06-01] MEDS: APIXABAN 2.5 MG TABLET PO SCH (17:33)
[2020-06-01] MEDS ORDERED: FUROSEMIDE 10 MG/ML 2 ML VIAL IV ONE (17:36)
[2020-06-01] MEDS: hydrOXYzine HCL 25 MG TAB PO SCH ×2 (20:15→20:46)
[2020-06-01 21:39] LABS: Potassium 3.9 mmol/L (3.5-5.1)
[2020-06-01] MEDS: SODIUM CHLORIDE TAB 1 GM TAB PO SCH (22:35)
[2020-06-01] MEDS: SODIUM BICARBONATE TAB 650 MG TAB PO SCH (22:36)
[2020-06-02] MEDS: ACETAMINOPHEN TAB 325 MG TAB PO PRN ×2 (01:42→06:54)
[2020-06-02] MEDS: VANCOMYCIN 1,500 MG in SODIUM CHLORIDE 0.9% 250 ML IVPB SCH (01:42)
[2020-06-02 04:20] LABS: Basophils % (A) 0 %; Eosinophils # (A) 0.2 k/uL (0-0.7); Eosinophils % (A) 3 %; HCT 35.1 % (39.0-53.0); HGB 11.7 gm/dL (13.0-17.5); Lymphocytes # (A) 0.2 k/uL (1.0-4.8); Lymphocytes % (A) 3 %; MCH 32.1 pg (25.0-35.0); MCHC 33.2 g/dL (31.0-37.0); MCV 96.7 fL (80.0-100.0); Mean Platelet Volume 7.2; Monocytes # (A) 0.4 k/uL (0-1.0); Monocytes % (A) 4 %; Neutrophils # (A) 7.8 k/uL (1.3-7.7); Neutrophils % (A) 88 %; Platelet Count 147 k/uL (150-450); RBC 3.63 m/uL (4.30-5.90); RDW 13.5 % (11.5-15.5); WBC 8.8 k/uL (3.8-10.6)
[2020-06-02 04:30] LABS: Calcium 7.4 mg/dL (8.4-10.2); Potassium 3.5 mmol/L (3.5-5.1)
[2020-06-02] MEDS: POTASSIUM BICARBONATE/CIT AC 20 MEQ TABLET.EFF NG-TUBE SCH ×2 (06:17→08:42)
--- NOTE | 2020-06-02 08:30 | XR ---
EXAMINATION TYPE: XR chest 1V DATE OF EXAM: 06/02/2020 COMPARISON: Prior chest x-ray 06/01/2020 HISTORY: Covid pneumonia TECHNIQUE: Single frontal view of the chest is obtained. FINDINGS: Nodular density at the right lung base persists. There is no evident pneumothorax. Retroca rdiac density is again seen. Heart size may be accentuated by technique is apical lordotic and rotate d. Aorta is dense. IMPRESSION: Findings similar to prior exam, correlate for pneumonia. Stable granuloma.
[2020-06-02] MEDS: SODIUM BICARBONATE TAB 650 MG TAB PO SCH ×3 (08:42→20:47)
[2020-06-02] MEDS: ASPIRIN 325 MG TAB PO SCH (08:42)
[2020-06-02] MEDS: ATORVASTATIN 40 MG TAB PO SCH (08:42)
[2020-06-02] MEDS: APIXABAN 2.5 MG TABLET PO SCH (08:42)
[2020-06-02] MEDS: LEVOTHYROXINE 88 MCG TAB PO SCH (08:42)
[2020-06-02] MEDS: SODIUM CHLORIDE TAB 1 GM TAB PO SCH ×2 (08:43→20:47)
[2020-06-02] MEDS: MIDODRINE 5 MG TAB PO SCH ×3 (08:43→17:13)
[2020-06-02] MEDS: ISOSORBIDE MONONITRATE ER 15 MG TAB PO SCH (08:43)
[2020-06-02] MEDS ORDERED: SODIUM CHLORIDE 0.9% 1,000 ML IV ONE (10:44)
[2020-06-02] MEDS ORDERED: HYDROCORTISONE SUCCINATE 100 MG/2 ML VIAL IV STA (10:44)
[2020-06-02] MEDS: NOREPINEPHRINE 4 MG in SODIUM CHLORIDE 0.9% 250 ML IV SCH (11:22)
--- NOTE | 2020-06-02 11:58 | P.PN ---
Subjective Progress Note Date: 06/02/20 Principal diagnosis: Sepsis, hyponatremia, dyspnea, fever 89-year-old white male patient of Dr. Angie Palomares, with past medical history of chronic atrial fibrillation on Eliquis, CAD, chronic CHF, previous history of myocardial infarction, hypothyroidism, chronic liver cirrhosis requiring multiple paracentesis, former smoker, BPH, who was admitted to the hospital on 05/27/2020 when he came in for evaluation of chest pain and was diagnosed with non-ST elevated myocardial infarction. His initial troponin was 0.907, the second third and fourth troponins came back as 0.917, 0.820, 0.521. ProBNP on admission was 10,500. Serum sodium on admission was 120, urine osmolality was 276, urine random sodium was 30, cortisol level was 24, TSH was within normal limit at 2.1. Admission chest x-ray showed bilateral airspace opacities within the central lungs and lower lungs with a suggestion of early pulmonary vascular congestion and infectious process could not be entirely excluded. There was a mention of a prominent nodule within the right lower lobe measuring up to 1.5 cm this was compared to his previous chest x-ray dated 09/18/2019, and appeared roughly unchanged. Going back to 03/14/2018 patient had this right lower lobe nodule at the time measuring 1.6 cm, the size is not increase over the course of [address] chest dated 03/22/2018 showed partially calcified 8mm nodule in the anterior right middle lobe, there was thought to be related to old granulomatous disease. More recent CT of the abdomen and pelvis dated 09/27/2019 showed stable 1.2 cm right middle lobe calcified nodule. Patient was admitted, he was being treated for hyponatremia, acute exacerbation of chronic diastolic CHF. Patient also has a valvular heart disease, with a moderately severe mitral regurgitation, severe tricuspid regurgitation, echocardiogram showed EF between 50-55%, moderately severe pulmonary hypertension with right-sided pressures of 51.3 mmHg. His sodium levels were thought to be related to hypovolemia related to diuretic therapy, and a recent history of paracentesis on May 11 would removal of 3.6 L. Patient is on Lasix and Aldactone twice daily on a regular basis, no lower extremity edema, blood pressures were low throughout his admission, was systolic in the 80s. Patient denies any fever or chills, admission blood work showing a white blood cell count of 9.0, hemoglobin of 14.1, platelet count of 142, sodium 120, potassium is 5.2, chloride is 91, CO2 is 21, BUN of 119, creatinine is 1.02, AST was 128, ALT was 121, alkaline phosphatase was 224. Patient was evaluated by cardiology and recommended medical treatment, with a plan for a stress test and a possibility of a heart catheterization. Yesterday patient's hyponatremia became worse, patient continued to be hypotensive, serum sodium was 119, and a nephrology decided to start the patient on 3% saline. At the same time patient became more short of breath, and patient had the fever with a T-max of 99.9F, coronavirus PCR was sent and is pending at this time. She was placed on supplemental oxygen 4 L, is transferred to the intensive care unit, he seen in intensive care unit this morn ing where he is resting in bed, appears to be in no acute distress, he is satting about 97% on 4 L, his blood pressure still remains low, 74/53 this morning. He is on 3% hypertonic saline at a rate of 30 ML per hour. No other drips. Is awake and alert, he is responding appropriately, his serum sodium level is 121 today. His white blood cell count is 7.3, hemoglobin of 13.3, serum potassium level is 4.6, BUN of 53 and creatinine 0.87. Denies any chest pain, remains in atrial fibrillation with a controlled rate. He is producing urine, in the order of 75-235 ML per hour. His diuretics in the form of Lasix remain on hold, patient has received Tolvaptan per nephrology, and he is on Florinef, and will be started on Midrin. On 06/01/2020 patient seen in follow-up in the intensive care unit, he is resting comfortably in bed, slightly more weak on today's exam that she was yesterday. He is to be in no acute distress, he remains on supplemental oxygen, 4 L/m with a pulse ox of 94-96%, did have a fever with a T-max of 100.5F last night. Remains on 3% hypertonic saline at a rate of 35 ML per hour, nephrology is managing, today's sodium is 124, B1 is 54, creatinine 0.95. White count was up to 15.6 on yesterday's evening labs, and down to 11.9, yesterday we added Rocephin empirically with the suspicion of sepsis. Overnight his blood culture was positive for gram-positive cocci, 10 report is pending, urinalysis came back indicating presence of urinary tract infection, urinary culture is pending, pro- calcitonin level elevated at 1.11. This morning's chest x-ray showing continued focal atelectasis at the left base. patient denies any cough or congestion, his COVID 19 PCR is still pending at this time. Overnight patient also required start of vasopressor support, in the form of Levothroid infusing at 3.5 mics per minute, remains on Florinef. No abdominal pain, no vomiting. No chest pain, no hemoptysis. The patient is seen today 06/02/2020 in follow-up in the intensive care unit. He is currently resting fairly comfortably in bed. Awake and alert in no acute distress. He is on 4 L/m per nasal cannula to maintain O2 saturation in the 90s. He has a 0.9 normal saline at KVO. His sodium is improved to 125. He is still requiring a small amount of norepinephrine currently at 6.24 mcg/m. Urine is growing gram-negative bacilli. Blood is showing staph aureus. Currently on vancomycin and ceftriaxone. Chest x-ray continues to show a nodular density in the right lung base. Retrocardiac density is seen as well. No significant change. White count 8.8. Hemoglobin 11.7. Platelet count 147. Sodium 125. Potassium 3.5. Bicarb 17. Creatinine 0.95. Cortisol level 21. Objective - Vital Signs Vital signs: Vital Signs Temp 97.5 F L 06/02/20 08:00 Pulse 72 06/02/20 11:00 Resp 16 06/02/20 11:00 BP 85/50 06/02/20 11:00 Pulse Ox 96 06/02/20 11:00 Intake & Output 06/01/20 06/02/20 06/02/20 18:59 06:59 18:59 Intake Total 2763 929.691 225.680 Output Total 645 480 105 Balance 2118 449.691 120.680 Intake: IV 1790 .9 40 Dextrose 5% in Water 1, 450 000 ml @ 75 mls/hr IV . [id number] [facility] Rx#:[id number] Sodium Chloride 0.9% 1, 1000 000 ml @ 999 mls/hr IV . Q1H1M [facility] Rx#:[id number] Vancomycin 1,500 mg In 250 Sodium Chloride 0.9% 250 ml @ 125 mls/hr IVPB Q16H [facility] Rx#:[id number] cefTRIAXone 1 gm In 50 Sodium Chloride 0.9% 50 ml @ 100 mls/hr IVPB Q24HR [facility] Rx#:[id number] Intake, IV Titration 175 279.691 225.680 Amount Dextrose 5% in Water 1, 0 000 ml @ 75 mls/hr IV . [id number] [facility] Rx#:[id number] Norepinephrine 4 mg In 279.691 175.680 Sodium Chloride 0.9% 250 ml @ 0.05 MCG/KG/MIN 14. 535 mls/hr IV .[id number] [facility] Rx#:[id number] Sodium Chloride 3%( 175 Hypertonic) 500 ml @ 35 mls/hr IV .[id number] [facility] Rx #:[id number] cefTRIAXone 1 gm In 50 Sodium Chloride 0.9% 50 ml @ 100 mls/hr IVPB Q24HR [facility] Rx#:[id number] Oral 798 400 Tube Feeding 250 Output: Urine 645 480 105 Other: Voiding Method Indwelling Catheter Indwelling Catheter Indwelling Catheter - Exam GENERAL EXAM: Alert, 89-year-old frail looking male patient, chronically ill-looking, 4 L of oxygen, pulse ox 97%, resting in bed in the droplet isolation in the ICU. HEAD: Normocephalic/atraumatic. EYES: Normal reaction of pupils, equal size. Conjunctiva pink, sclera white. NOSE: Clear with pink turbinates. THROAT: No erythema or exudates. NECK: No masses, no JVD, no thyroid enlargement, no adenopathy. CHEST: No chest wall deformity. Symmetrical expansion. LUNGS: Equal air entry with basilar crackles and scattered rhonchi. CVS: Irregular rate and rhythm, normal S1 and S2, no gallops, no murmurs, no rubs ABDOMEN: Soft, nontender. No hepatosplenomegaly, normal bowel sounds, no guarding or rigidity. EXTREMITIES: No clubbing, no edema, no cyanosis, 2+ pulses and upper and lower extremities. MUSCULOSKELETAL: Muscle strength and tone normal. SPINE: No scoliosis or deformity SKIN: Multiple areas of ecchymosis involving arms CENTRAL NERVOUS SYSTEM: Alert and oriented -3. No focal deficits, tone is normal in all 4 extremities. PSYCHIATRIC: Alert and oriented -3. Appropriate affect. Intact judgment and insight. - Labs CBC & Chem 7: 06/02/20 03:32 06/02/20 03:32 Labs: Abnormal Lab Results - Last 24 Hours (Table) 06/01/20 06/01/20 06/02/20 Range/Units 16:34 21:03 03:32 RBC 3.63 L (4.30-5.90) m/uL Hgb 11.7 L (13.0-17.5) gm/dL Hct 35.1 L (39.0-53.0) % Plt Count 147 L (150-450) k/uL Neutrophils # 7.8 H (1.3-7.7) k/uL Lymphocytes # 0.2 L (1.0-4.8) k/uL Sodium 125 L 124 L (137-145) mmol/L Carbon Dioxide (22-30) mmol/L BUN (9-20) mg/dL Glucose (74-99) mg/dL Calcium (8.4-10.2) mg/dL 06/02/20 Range/Units 03:32 RBC (4.30-5.90) m/uL Hgb (13.0-17.5) gm/dL Hct (39.0-53.0) % Plt Count (150-450) k/uL Neutrophils # (1.3-7.7) k/uL Lymphocytes # (1.0-4.8) k/uL Sodium 125 L (137-145) mmol/L Carbon Dioxide 17 L (22-30) mmol/L BUN 49 H (9-20) mg/dL Glucose 120 H (74-99) mg/dL Calcium 7.4 L (8.4-10.2) mg/dL Microbiology - Last 24 Hours (Table) 06/01/20 12:08 Blood Culture Gram Stain - Preliminary Blood 06/01/20 12:08 Blood Culture - Final Blood 05/31/20 10:08 Blood Culture Gram Stain - Preliminary Blood Blood Culture - Preliminary Staphylococcus aureus 05/31/20 11:30 Urine Culture - Preliminary Urine,Voided Gram Neg Bacilli Assessment and Plan Assessment: 1. Acute hypoxic respiratory failure multifactorial related to sepsis, acute exacerbation of diastolic CHF, and possibility of left lower lobe pneumonia with a possible parapneumonic effusion is not completely excluded, consider COVID 19 pneumonia, with PCR is pending at this time. Today's chest x-ray on 06/02/2020 showing focal atelectasis and consolidation at the left lung base, nodular density in the right base 2. Septic shock, likely related to urinary tract infection, secondary to gram- negative bacilli, final culture is pending. 3. Staphylococcus aureus bacteremia, suspect MSSA 4. Acute non-ST elevated myocardial infarction 5. Chronic diastolic CHF with preserved EF of 50-55 percent 6. Hyponatremia, thought to be hypovolemic, due to recent history of pa racentesis, and diuretic therapy for liver cirrhosis, diuretics on hold, patient received Tolvaptan, currently on 3% hypertonic saline 7. Valvular heart disease, with moderately severe mitral regurgitation, severe tricuspid regurgitation, and pulmonary hypertension with right-sided pressures 51 mmHg 8. Right middle lobe benign nodule, present since September 2017, has remained stable, partially calcified, thought to be related to old granulomatous disease 9. Chronic smoker 10. Coronary artery disease 11. Chronic A. fib on Eliquis 12. Nonalcoholic liver cirrhosis, with recurrent ascites, requiring paracentesis 13. Hypotension, likely related to hypovolemia, and sepsis component may be present related to possibility of left lung pneumonia 14. His history of myocardial infarction 15. History of hypothyroidism 16. Chronic back pain with previous surgery 17. History of BPH with prostate surgery Plan: The patient was seen and evaluated by Dr. Acosta Chest x-ray and labs reviewed Discontinue vancomycin Continue Rocephin 1 L of 0.9 normal saline bolus Give hydrocortisone 100 mg IVP Wean down the norepinephrine as tolerated We will continue to follow and make further recommendations based on his clinical status I, the cosigning physician, performed a history & physical examination of the patient. Lungs sounds with basilar crackles, scattered rhonchi. Maintaining good O2 saturations in the 90s on 4 L/m per nasal cannula. I discussed the assessment and plan of care with my nurse practitioner, Ele Oropeza. I attest to the above note as dictated by her.
--- NOTE | 2020-06-02 12:16 | P.PN ---
Subjective Progress Note Date: 06/02/20 Principal diagnosis: This is a 89-year-old male seen in consultation because of acute kidney injury with significantly high BUN John and creatinine and hyponatremia. He has Gram-positive bacteremia as well as gram-negative UTI infection. Currently is on nasal cannula 4 L. Blood pressure is in the 60s currently he has somewhat fragile upper arm skin no leg edema Patient was not examined as he is suspicious for COVID - 19 and the tests are pending Objective - Vital Signs Vital signs: Vital Signs Temp 97.5 F L 06/02/20 08:00 Pulse 72 06/02/20 11:00 Resp 16 06/02/20 11:00 BP 85/50 06/02/20 11:00 Pulse Ox 96 06/02/20 11:00 Intake & Output 06/01/20 06/02/20 06/02/20 18:59 06:59 18:59 Intake Total 2763 929.691 225.680 Output Total 645 480 105 Balance 2118 449.691 120.680 Intake: IV 1790 .9 40 Dextrose 5% in Water 1, 450 000 ml @ 75 mls/hr IV . [id number] [facility] Rx#:[id number] Sodium Chloride 0.9% 1, 1000 000 ml @ 999 mls/hr IV . Q1H1M [facility] Rx#:[id number] Vancomycin 1,500 mg In 250 Sodium Chloride 0.9% 250 ml @ 125 mls/hr IVPB Q16H [facility] Rx#:[id number] cefTRIAXone 1 gm In 50 Sodium Chloride 0.9% 50 ml @ 100 mls/hr IVPB Q24HR [facility] Rx#:[id number] Intake, IV Titration 175 279.691 225.680 Amount Dextrose 5% in Water 1, 0 000 ml @ 75 mls/hr IV . [id number] [facility] Rx#:[id number] Norepinephrine 4 mg In 279.691 175.680 Sodium Chloride 0.9% 250 ml @ 0.05 MCG/KG/MIN 14. 535 mls/hr IV .[id number] [facility] Rx#:[id number] Sodium Chloride 3%( 175 Hypertonic) 500 ml @ 35 mls/hr IV .[id number] [facility] Rx #:[id number] cefTRIAXone 1 gm In 50 Sodium Chloride 0.9% 50 ml @ 100 mls/hr IVPB Q24HR [facility] Rx#:[id number] Oral 798 400 Tube Feeding 250 Output: Urine 645 480 105 Other: Voiding Method Indwelling Catheter Indwelling Catheter Indwelling Catheter Per nursing staff no leg edema lungs are clear. He is on levo fed. He is awake alert although his blood pressure is in the 60s to 80s - Labs CBC & Chem 7: 06/02/20 03:32 06/02/20 03:32 Labs: Abnormal Lab Results - Last 24 Hours (Table) 06/01/20 06/01/20 06/02/20 Range/Units 16:34 21:03 03:32 RBC 3.63 L (4.30-5.90) m/uL Hgb 11.7 L (13.0-17.5) gm/dL Hct 35.1 L (39.0-53.0) % Plt Count 147 L (150-450) k/uL Neutrophils # 7.8 H (1.3-7.7) k/uL Lymphocytes # 0.2 L (1.0-4.8) k/uL Sodium 125 L 124 L (137-145) mmol/L Carbon Dioxide (22-30) mmol/L BUN (9-20) mg/dL Glucose (74-99) mg/dL Calcium (8.4-10.2) mg/dL 06/02/20 Range/Units 03:32 RBC (4.30-5.90) m/uL Hgb (13.0-17.5) gm/dL Hct (39.0-53.0) % Plt Count (150-450) k/uL Neutrophils # (1.3-7.7) k/uL Lymphocytes # (1.0-4.8) k/uL Sodium 125 L (137-145) mmol/L Carbon Dioxide 17 L (22-30) mmol/L BUN 49 H (9-20) mg/dL Glucose 120 H (74-99) mg/dL Calcium 7.4 L (8.4-10.2) mg/dL Microbiology - Last 24 Hours (Table) 06/01/20 12:08 Blood Culture Gram Stain - Preliminary Blood Blood Culture - Preliminary Staphylococcus aureus 06/01/20 12:08 Blood Culture - Final Blood 05/31/20 10:08 Blood Culture Gram Stain - Preliminary Blood Blood Culture - Preliminary Staphylococcus aureus 05/31/20 11:30 Urine Culture - Preliminary Urine,Voided Gram Neg Bacilli Assessment and Plan Assessment: Impression 1. Hyponatremia secondary to likely from hypotension, and likely volume depletion. 2. Acute kidney injury secondary to prerenal from sepsis, Significantly high BUN, was 119 on admission on 05/25/2020 and down to 49 currently. This is indicated of acute kidney injury. His creatinine though is 1.0 to dated 05/25/2020 and is currently 0.95 3. Staph aureus bacteremia, source unclear 4. Gram-negative urinary tract infection. Recommendation 1. 1 L of normal saline because of low blood pressure. After that maintain blood pressure with Levophed as well as with saline at 100 and hour. 2. Obtain urine sodium and urine osmolality and serum sodium after the bolus 3. We'll repeat labs tomorrow
--- NOTE | 2020-06-02 13:00 | XR ---
EXAMINATION TYPE: XR chest 1V portable DATE OF EXAM: 06/02/2020 COMPARISON: Prior chest x-ray same dated earlier time HISTORY: Status post central venous catheter placement TECHNIQUE: Single frontal view of the chest is obtained. FINDINGS: There is been interval placement of a left jugular central venous catheter, distal tip is overlying the cavoatrial junction level. No evident pneumothorax or significant interval change. IMPRESSION: No evident complication status post central venous catheter placement.
[2020-06-02] MEDS: SODIUM CHLORIDE 0.9% 1,000 ML IV SCH (13:42)
[2020-06-02 15:04] LABS: Potassium 3.8 mmol/L (3.5-5.1)
--- NOTE | 2020-06-02 15:08 | OP ---
OPERATIVE REPORT PROCEDURE: TRIPLE LUMEN CATHETER PLACEMENT. OPERATORS: Dr. Acosta, Dr. Oropeza. Indication: Hemodynamic monitoring/Intravenous access. A time-out was completed verifying correct patient, procedure, site, positioning, and implant(s) or special equipment if applicable. The patient was placed in a dependent position appropriate for triple lumen catheter placement based on the vein to be cannulated. The patient's/left neck was prepped and draped in sterile fashion. 1% Lidocaine was used to anesthetize the surrounding skin area. A triple lumen 9F Cordis catheter was introduced into the left internal jugular or using Seldinger technique. The catheter was threaded smoothly over the guide wire and appropriate blood return was obtained. Each lumen of the catheter was evacuated of air and flushed with sterile saline. The catheter was then sutured in place to the skin and a sterile dressing applied. Perfusion to the extremity distal to the point of catheter insertion was checked and found to be adequate. There was informed consent and universal timeout. The left internal jugular site posterior approach was employed. There was no immediate complication. There was good blood return from all 3 ports. The catheter was sutured in place. The tip of the catheter was seen in the area of the superior vena cava/right atrial junction. Chest x- ray was done. No additional recommendations were made. The patient tolerated the procedure well. The area was dressed. MMODL / IJN: [id number] /
--- NOTE | 2020-06-02 17:05 | P.PN ---
Subjective Progress Note Date: 06/02/20 Principal diagnosis: Fever/dyspnea/sepsis Hyponatremia 06/01/2020 patient seen in follow-up in the intensive care unit, he is resting comfortably in bed. He is to be in no acute distress, he remains on supplemental oxygen, 4 L/m with a pulse ox of 94-96%, did have a fever with a T-max of 100.5F last night. Remains on 3% hypertonic saline at a rate of 35 ML per hour, nephrology is managing, today's sodium is 124, B1 is 54, creatinine 0.95. White count was up to 15.6 on yesterday's evening labs, and down to 11.9, yesterday we added Rocephin empirically with the suspicion of sepsis. Overnight his blood culture was positive for gram-positive cocci, 10 report is pending, urinalysis came back indicating presence of urinary tract infection, urinary culture is pending, pro- calcitonin level elevated at 1.11. This morning's chest x-ray showing continued focal atelectasis at the left base. patient denies any cough or congestion, his COVID 19 PCR is still pending at this time. Overnight patient also required Levothroid; remains on Florinef. 06/02/2020 Patient is seen and evaluated in follow-up in the intensive care unit. He is currently resting fairly comfortably in bed. Awake and alert in no acute distress. He is on 4 L/m per nasal cannula to maintain O2 saturation in the 90s. He has a 0.9 normal saline at KVO. His sodium is improved to 125. He is still requiring a small amount of norepinephrine currently at 6.24 mcg/m. Urine is growing gram-negative bacilli. Blood is showing staph aureus. Currently on vancomycin and ceftriaxone. Chest x-ray continues to show a nodular density in the right lung base. Retrocardiac density is seen as well. No significant change. White count 8.8. Hemoglobin 11.7. Platelet count 147. Sodium 125. Potassium 3.5. Bicarb 17. Creatinine 0.95. Cortisol level 21. Patient is being managed by critical care and vancomycin has been discontinued; patient remains on IV Rocephin; plan is to wean down norepinephrine along with a full dose of 1 L normal saline and hydrocortisone 100 mg IV piggyback Objective - Vital Signs Vital signs: Vital Signs Temp 97.5 F L 06/02/20 08:00 Pulse 73 06/02/20 09:00 Resp 16 06/02/20 09:00 BP 69/50 06/02/20 09:00 Pulse Ox 97 06/02/20 09:00 Intake & Output 06/01/20 06/02/20 06/02/20 18:59 06:59 18:59 Intake Total 2763 929.691 50 Output Total 645 480 105 Balance 2118 449.691 -55 Intake: IV 1790 .9 40 Dextrose 5% in Water 1, 450 000 ml @ 75 mls/hr IV . [id number] [facility] Rx#:[id number] Sodium Chloride 0.9% 1, 1000 000 ml @ 999 mls/hr IV . Q1H1M [facility] Rx#:[id number] Vancomycin 1,500 mg In 250 Sodium Chloride 0.9% 250 ml @ 125 mls/hr IVPB Q16H [facility] Rx#:[id number] cefTRIAXone 1 gm In 50 Sodium Chloride 0.9% 50 ml @ 100 mls/hr IVPB Q24HR [facility] Rx#:[id number] Intake, IV Titration 175 279.691 50 Amount Dextrose 5% in Water 1, 0 000 ml @ 75 mls/hr IV . [id number] [facility] Rx#:[id number] Norepinephrine 4 mg In 279.691 Sodium Chloride 0.9% 250 ml @ 0.05 MCG/KG/MIN 14. 535 mls/hr IV .[id number] [facility] Rx#:[id number] Sodium Chloride 3%( 175 Hypertonic) 500 ml @ 35 mls/hr IV .[id number] [facility] Rx #:[id number] cefTRIAXone 1 gm In 50 Sodium Chloride 0.9% 50 ml @ 100 mls/hr IVPB Q24HR [facility] Rx#:[id number] Oral 798 400 Tube Feeding 250 Output: Urine 645 480 105 Other: Voiding Method Indwelling Catheter Indwelling Catheter - Exam GENERAL EXAM: Alert, 89-year-old frail looking white male, chronically ill- looking, 4 L of oxygen, pulse ox 97%, resting in bed in the droplet isolation in the ICU. comfortable in no apparent distress. HEAD: Normocephalic/atraumatic. EYES: Normal reaction of pupils, equal size. Conjunctiva pink, sclera white. NOSE: Clear with pink turbinates. THROAT: No erythema or exudates. NECK: No masses, no JVD, no thyroid enlargement, no adenopathy. CHEST: No chest wall deformity. Symmetrical expansion. LUNGS: Equal air entry with no crackles, wheeze, rhonchi or dullness. CVS: Irregular rate and rhythm, normal S1 and S2, no gallops, no murmurs, no rubs ABDOMEN: Soft, nontender. No hepatosplenomegaly, normal bowel sounds, no guarding or rigidity. EXTREMITIES: No clubbing, no edema, no cyanosis, 2+ pulses and upper and lower extremities. - Labs CBC & Chem 7: 06/02/20 03:32 06/02/20 14:32 Labs: Abnormal Lab Results - Last 24 Hours (Table) 06/01/20 06/01/20 06/01/20 Range/Units 10:54 16:34 21:03 RBC (4.30-5.90) m/uL Hgb (13.0-17.5) gm/dL Hct (39.0-53.0) % Plt Count (150-450) k/uL Neutrophils # (1.3-7.7) k/uL Lymphocytes # (1.0-4.8) k/uL Sodium 133 L 125 L 124 L (137-145) mmol/L Carbon Dioxide (22-30) mmol/L BUN (9-20) mg/dL Glucose (74-99) mg/dL Calcium (8.4-10.2) mg/dL 06/02/20 06/02/20 Range/Units 03:32 03:32 RBC 3.63 L (4.30-5.90) m/uL Hgb 11.7 L (13.0-17.5) gm/dL Hct 35.1 L (39.0-53.0) % Plt Count 147 L (150-450) k/uL Neutrophils # 7.8 H (1.3-7.7) k/uL Lymphocytes # 0.2 L (1.0-4.8) k/uL Sodium 125 L (137-145) mmol/L Carbon Dioxide 17 L (22-30) mmol/L BUN 49 H (9-20) mg/dL Glucose 120 H (74-99) mg/dL Calcium 7.4 L (8.4-10.2) mg/dL Microbiology - Last 24 Hours (Table) 06/01/20 12:08 Blood Culture Gram Stain - Preliminary Blood 06/01/20 12:08 Blood Culture - Final Blood 05/31/20 10:08 Blood Culture Gram Stain - Preliminary Blood Blood Culture - Preliminary Staphylococcus aureus 05/31/20 11:30 Urine Culture - Preliminary Urine,Voided Gram Neg Bacilli Assessment and Plan Assessment: 1. Acute hypoxic respiratory failure; multifactorial - Acute exacerbation diastolic CHF - Left lower lobe pneumonia/possible parapneumonic effusion/sepsis - Possible covert 19 vital infection Patient's chest x-ray today shows focal atelectasis and consolidation at left lower lung; patient's blood cultures are positive for gram-negative and gram-positive cocci bacteremia with components of septic shock; patient remains on IV Rocephin and vancomycin - Continue with supplemental oxygen as needed with plan to wean as tolerated - Covert ECF is pending 2. Non-ST elevation NM 3. Hypovolemic hyponatremia; possibly due to recent paracentesis and diuretic therapy; diuretics remain on hold; patient currently on 3% hypertonic saline 4. Chronic atrial fibrillation; remains rate controlled; continue with anticoagulation therapy 5. Hypothyroidism; continue with home dose of levothyroxine DVT prophylaxis; SCDs/systemic anticoagulation CODE STATUS; DO NOT RESUSCITATE
[2020-06-02] MEDS: hydrOXYzine HCL 25 MG TAB PO SCH (20:46)
[2020-06-03 04:03] LABS: HCT 32.9 % (39.0-53.0); HGB 10.9 gm/dL (13.0-17.5); MCH 32.3 pg (25.0-35.0); MCHC 33.1 g/dL (31.0-37.0); MCV 97.6 fL (80.0-100.0); Mean Platelet Volume 7.6; Platelet Count 121 k/uL (150-450); RBC 3.37 m/uL (4.30-5.90); RDW 13.7 % (11.5-15.5); WBC 8.7 k/uL (3.8-10.6)
[2020-06-03 04:24] LABS: Albumin 2.3 g/dL (3.5-5.0); Calcium 7.2 mg/dL (8.4-10.2); Potassium 4.1 mmol/L (3.5-5.1); Total Bilirubin 1.7 mg/dL (0.2-1.3); Total Protein 4.8 g/dL (6.3-8.2)
[2020-06-03] MEDS: SODIUM CHLORIDE 0.9% 1,000 ML IV SCH ×3 (06:57→19:39)
--- NOTE | 2020-06-03 07:42 | XR ---
EXAMINATION TYPE: XR chest 1V portable DATE OF EXAM: 06/03/2020 HISTORY: Shortness of breath. COMPARISON: 06/02/2020 TECHNIQUE: Single view of the chest is submitted. FINDINGS: Demonstrated are scattered senescent parenchymal change. Left internal jugular central venous line noted unchanged in position. Nodular density persists at th e right lung base as well as left lower lobe infiltrate and/or atelectasis. The heart is stable. Hilar and mediastinal structures are within normal limits. Degenerative changes are seen of the dorsal spine. IMPRESSION: 1. Stable chest.
[2020-06-03] MEDS: ISOSORBIDE MONONITRATE ER 15 MG TAB PO SCH (08:41)
[2020-06-03] MEDS: MIDODRINE 5 MG TAB PO SCH ×3 (09:20→16:14)
[2020-06-03] MEDS: ASPIRIN 325 MG TAB PO SCH (09:20)
[2020-06-03] MEDS: APIXABAN 2.5 MG TABLET PO SCH (09:21)
[2020-06-03] MEDS: SODIUM CHLORIDE TAB 1 GM TAB PO SCH ×2 (09:21→21:04)
[2020-06-03] MEDS: ATORVASTATIN 40 MG TAB PO SCH (09:21)
[2020-06-03] MEDS: LEVOTHYROXINE 88 MCG TAB PO SCH (09:21)
[2020-06-03] MEDS: SODIUM BICARBONATE TAB 650 MG TAB PO SCH ×3 (09:21→21:04)
--- NOTE | 2020-06-03 10:45 | P.PN ---
Subjective Progress Note Date: 06/03/20 Principal diagnosis: This is a 89-year-old male seen in consultation because of acute kidney injury with significantly high BUN John and creatinine and hyponatremia. He has Gram-positive bacteremia as well as gram-negative UTI infection. Currently is on nasal cannula 4 L. Yesterday's blood pressure went down into the 60s. He was given 1 L of saline and started on normal saline 100 and hour His sodium remains unchanged in spite of the fluids given to him. Urine osmolal ity is 360 as of yesterday urine sodium was not available He remains somewhat obtunded. Blood pressure is in the 80s to 90s. His COVID still pending Objective - Vital Signs Vital signs: Vital Signs Temp 97.2 F L 06/03/20 09:00 Pulse 74 06/03/20 10:00 Resp 17 06/03/20 10:00 BP 101/62 06/03/20 10:00 Pulse Ox 96 06/03/20 10:00 Intake & Output 06/02/20 06/03/20 06/03/20 18:59 06:59 18:59 Intake Total 0427.580 4890.325 Output Total 433 3871 Balance 1440.355 -2564.675 Weight 84.4 kg Intake: Intake, IV Titration 2532.925 8446.325 Amount Norepinephrine 4 mg In 223.355 206.325 Sodium Chloride 0.9% 250 ml @ 0.05 MCG/KG/MIN 14. 535 mls/hr IV .[id number] [facility] Rx#:[id number] Sodium Chloride 0.9% 1, 600 1100 000 ml @ 100 mls/hr IV . Q10H [facility] Rx#:[id number] Sodium Chloride 0.9% 1, 1000 000 ml @ 999 mls/hr IV . Q1H1M [facility] Rx#:[id number] cefTRIAXone 1 gm In 50 Sodium Chloride 0.9% 50 ml @ 100 mls/hr IVPB Q24HR [facility] Rx#:[id number] Output: Urine 433 3871 Other: Voiding Method Indwelling Catheter Indwelling Catheter Indwelling Catheter Patient was examined today His remains obtunded HEENT exam no JVP neck is supple no facial asymmetry Lungs are clear to auscultation fair air entry occasional coarse crackles. Heart sounds are unremarkable for any murmur rub gallop Abdomen soft nontender Extremity exam reveals no edema Warm to touch Neurologically obtunded arousable - Labs CBC & Chem 7: 06/03/20 03:17 06/03/20 03:17 Labs: Abnormal Lab Results - Last 24 Hours (Table) 06/02/20 06/03/20 06/03/20 Range/Units 03:32 03:17 03:17 RBC 3.37 L (4.30-5.90) m/uL Hgb 10.9 L (13.0-17.5) gm/dL Hct 32.9 L (39.0-53.0) % Plt Count 121 L (150-450) k/uL Sodium 125 L (137-145) mmol/L Carbon Dioxide 14 L (22-30) mmol/L BUN 48 H (9-20) mg/dL Glucose 184 H (74-99) mg/dL Osmolality 277 L (280-301) mosm/kg Calcium 7.2 L (8.4-10.2) mg/dL Total Bilirubin 1.7 H (0.2-1.3) mg/dL AST 80 H (17-59) U/L ALT 72 H (4-49) U/L Alkaline Phosphatase 215 H (38-126) U/L Total Protein 4.8 L (6.3-8.2) g/dL Albumin 2.3 L (3.5-5.0) g/dL Microbiology - Last 24 Hours (Table) 05/31/20 10:08 Blood Culture Gram Stain - Final Blood Blood Culture - Final Staphylococcus aureus 05/31/20 11:30 Urine Culture - Final Urine,Voided Citrobacter freundii 06/01/20 12:08 Blood Culture - Preliminary Blood No Growth after 24 hours 06/01/20 12:08 Blood Culture Gram Stain - Preliminary Blood Blood Culture - Preliminary Staphylococcus aureus Assessment and Plan Assessment: Impression 1. Hyponatremia secondary to likely from hypotension, and likely volume depletion. 2. Acute kidney injury secondary to prerenal from sepsis, Significantly high BUN, was 119 on admission on 05/25/2020 and down to 48 currently, creatinine is 0.91. Urine output is 37 64 mL 3. Staph aureus bacteremia, methicillin sensitive, source unclear at methicillin 4. Gram-negative urinary tract infection.. Urine culture grew Citrobacter Freundii. Consider to current antibiotics. 5. High troponin 0.5 on admission on 05/26/2020 Recommendation 1. Continue IV normal 100 and hour 2. Check urine sodium to see if it is volume depletion or SIADH 3. We'll repeat labs tomorrow. 4. Consider repeating blood cultures as well as obtain echocardiogram to rule out endocarditis
[2020-06-03] MEDS ORDERED: SODIUM CHLORIDE 3%(HYPERTONIC) 500 ML IV SCH (11:15)
--- NOTE | 2020-06-03 11:55 | P.PN ---
Subjective Progress Note Date: 06/03/20 Principal diagnosis: Sepsis, hyponatremia, dyspnea, fever 89-year-old white male patient of Dr. Angie Palomares, with past medical history of chronic atrial fibrillation on Eliquis, CAD, chronic CHF, previous history of myocardial infarction, hypothyroidism, chronic liver cirrhosis requiring multiple paracentesis, former smoker, BPH, who was admitted to the hospital on 05/27/2020 when he came in for evaluation of chest pain and was diagnosed with non-ST elevated myocardial infarction. His initial troponin was 0.907, the second third and fourth troponins came back as 0.917, 0.820, 0.521. ProBNP on admission was 10,500. Serum sodium on admission was 120, urine osmolality was 276, urine random sodium was 30, cortisol level was 24, TSH was within normal limit at 2.1. Admission chest x-ray showed bilateral airspace opacities within the central lungs and lower lungs with a suggestion of early pulmonary vascular congestion and infectious process could not be entirely excluded. There was a mention of a prominent nodule within the right lower lobe measuring up to 1.5 cm this was compared to his previous chest x-ray dated 09/18/2019, and appeared roughly unchanged. Going back to 03/14/2018 patient had this right lower lobe nodule at the time measuring 1.6 cm, the size is not increase over the course of [address] chest dated 03/22/2018 showed partially calcified 8mm nodule in the anterior right middle lobe, there was thought to be related to old granulomatous disease. More recent CT of the abdomen and pelvis dated 09/27/2019 showed stable 1.2 cm right middle lobe calcified nodule. Patient was admitted, he was being treated for hyponatremia, acute exacerbation of chronic diastolic CHF. Patient also has a valvular heart disease, with a moderately severe mitral regurgitation, severe tricuspid regurgitation, echocardiogram showed EF between 50-55%, moderately severe pulmonary hypertension with right-sided pressures of 51.3 mmHg. His sodium levels were thought to be related to hypovolemia related to diuretic therapy, and a recent history of paracentesis on May 11 would removal of 3.6 L. Patient is on Lasix and Aldactone twice daily on a regular basis, no lower extremity edema, blood pressures were low throughout his admission, was systolic in the 80s. Patient denies any fever or chills, admission blood work showing a white blood cell count of 9.0, hemoglobin of 14.1, platelet count of 142, sodium 120, potassium is 5.2, chloride is 91, CO2 is 21, BUN of 119, creatinine is 1.02, AST was 128, ALT was 121, alkaline phosphatase was 224. Patient was evaluated by cardiology and recommended medical treatment, with a plan for a stress test and a possibility of a heart catheterization. Yesterday patient's hyponatremia became worse, patient continued to be hypotensive, serum sodium was 119, and a nephrology decided to start the patient on 3% saline. At the same time patient became more short of breath, and patient had the fever with a T-max of 99.9F, coronavirus PCR was sent and is pending at this time. She was placed on supplemental oxygen 4 L, is transferred to the intensive care unit, he seen in intensive care unit this morn ing where he is resting in bed, appears to be in no acute distress, he is satting about 97% on 4 L, his blood pressure still remains low, 74/53 this morning. He is on 3% hypertonic saline at a rate of 30 ML per hour. No other drips. Is awake and alert, he is responding appropriately, his serum sodium level is 121 today. His white blood cell count is 7.3, hemoglobin of 13.3, serum potassium level is 4.6, BUN of 53 and creatinine 0.87. Denies any chest pain, remains in atrial fibrillation with a controlled rate. He is producing urine, in the order of 75-235 ML per hour. His diuretics in the form of Lasix remain on hold, patient has received Tolvaptan per nephrology, and he is on Florinef, and will be started on Midrin. On 06/01/2020 patient seen in follow-up in the intensive care unit, he is resting comfortably in bed, slightly more weak on today's exam that she was yesterday. He is to be in no acute distress, he remains on supplemental oxygen, 4 L/m with a pulse ox of 94-96%, did have a fever with a T-max of 100.5F last night. Remains on 3% hypertonic saline at a rate of 35 ML per hour, nephrology is managing, today's sodium is 124, B1 is 54, creatinine 0.95. White count was up to 15.6 on yesterday's evening labs, and down to 11.9, yesterday we added Rocephin empirically with the suspicion of sepsis. Overnight his blood culture was positive for gram-positive cocci, 10 report is pending, urinalysis came back indicating presence of urinary tract infection, urinary culture is pending, pro- calcitonin level elevated at 1.11. This morning's chest x-ray showing continued focal atelectasis at the left base. patient denies any cough or congestion, his COVID 19 PCR is still pending at this time. Overnight patient also required start of vasopressor support, in the form of Levothroid infusing at 3.5 mics per minute, remains on Florinef. No abdominal pain, no vomiting. No chest pain, no hemoptysis. The patient is seen today 06/02/2020 in follow-up in the intensive care unit. He is currently resting fairly comfortably in bed. Awake and alert in no acute distress. He is on 4 L/m per nasal cannula to maintain O2 saturation in the 90s. He has a 0.9 normal saline at KVO. His sodium is improved to 125. He is still requiring a small amount of norepinephrine currently at 6.24 mcg/m. Urine is growing gram-negative bacilli. Blood is showing staph aureus. Currently on vancomycin and ceftriaxone. Chest x-ray continues to show a nodular density in the right lung base. Retrocardiac density is seen as well. No significant change. White count 8.8. Hemoglobin 11.7. Platelet count 147. Sodium 125. Potassium 3.5. Bicarb 17. Creatinine 0.95. Cortisol level 21. The patient is seen today 06/03/2020 in follow-up in the intensive care unit. He is currently resting comfortably in bed. Awake and alert in no acute distress. He is currently on 3 L/m per nasal cannula. Still requiring norepinephrine at 3.8 mg/m. Triple-lumen catheter placed on 06/02/2020. Cultures were positive for MSSA in the blood. Citrobacter freundii in the urine. He is currently on ceftriaxone. White count 8.7. Hemoglobin 10.9. Platelet count 121,000. Sodium 125. Potassium 4.1. Creatinine 0.91. AST 80. ALT 72. He remains on sodium bicarb tablets. 0.9 normal saline at 100 ML's per hour. Chest x-ray continues to show nodular density in the right lung base as well as left lower lobe infiltrate/atelectasis. Stable compared to previous. Objective - Vital Signs Vital signs: Vital Signs Temp 97.2 F L 06/03/20 09:00 Pulse 89 06/03/20 11:00 Resp 12 06/03/20 11:00 BP 94/66 06/03/20 11:00 Pulse Ox 97 06/03/20 11:00 Intake & Output 06/02/20 06/03/20 06/03/20 18:59 06:59 18:59 Intake Total 2323.997 3064.325 500 Output Total 433 3871 150 Balance 1440.355 -2564.675 350 Weight 84.4 kg Intake: Intake, IV Titration 9149.623 3864.325 500 Amount Norepinephrine 4 mg In 223.355 206.325 Sodium Chloride 0.9% 250 ml @ 0.05 MCG/KG/MIN 14. 535 mls/hr IV .[id number] [facility] Rx#:[id number] Sodium Chloride 0.9% 1, 600 1100 500 000 ml @ 100 mls/hr IV . Q10H [facility] Rx#:[id number] Sodium Chloride 0.9% 1, 1000 000 ml @ 999 mls/hr IV . Q1H1M [facility] Rx#:[id number] cefTRIAXone 1 gm In 50 Sodium Chloride 0.9% 50 ml @ 100 mls/hr IVPB Q24HR [facility] Rx#:[id number] Output: Urine 433 3871 150 Other: Voiding Method Indwelling Catheter Indwelling Catheter Indwelling Catheter - Exam GENERAL EXAM: Alert, 89-year-old frail looking male patient, chronically ill- looking, 3 L of oxygen, pulse ox 98%, resting in bed in the droplet isolation in the ICU. HEAD: Normocephalic/atraumatic. EYES: Normal reaction of pupils, equal size. Conjunctiva pink, sclera white. NOSE: Clear with pink turbinates. THROAT: No erythema or exudates. NECK: No masses, no JVD, no thyroid enlargement, no adenopathy. CHEST: No chest wall deformity. Symmetrical expansion. LUNGS: Equal air entry with basilar crackles and scattered rhonchi. CVS: Irregular rate and rhythm, normal S1 and S2, no gallops, no murmurs, no rubs ABDOMEN: Soft, nontender. No hepatosplenomegaly, normal bowel sounds, no guarding or rigidity. EXTREMITIES: No clubbing, no edema, no cyanosis, 2+ pulses and upper and lower extremities. MUSCULOSKELETAL: Muscle strength and tone normal. SPINE: No scoliosis or deformity SKIN: Multiple areas of ecchymosis involving arms CENTRAL NERVOUS SYSTEM: No focal deficits, tone is normal in all 4 extremities. PSYCHIATRIC: Alert and oriented -3. Appropriate affect. Intact judgment and insight. - Labs CBC & Chem 7: 06/03/20 03:17 06/03/20 03:17 Labs: Abnormal Lab Results - Last 24 Hours (Table) 06/02/20 06/03/20 06/03/20 Range/Units 03:32 03:17 03:17 RBC 3.37 L (4.30-5.90) m/uL Hgb 10.9 L (13.0-17.5) gm/dL Hct 32.9 L (39.0-53.0) % Plt Count 121 L (150-450) k/uL Sodium 125 L (137-145) mmol/L Carbon Dioxide 14 L (22-30) mmol/L BUN 48 H (9-20) mg/dL Glucose 184 H (74-99) mg/dL Osmolality 277 L (280-301) mosm/kg Calcium 7.2 L (8.4-10.2) mg/dL Total Bilirubin 1.7 H (0.2-1.3) mg/dL AST 80 H (17-59) U/L ALT 72 H (4-49) U/L Alkaline Phosphatase 215 H (38-126) U/L Total Protein 4.8 L (6.3-8.2) g/dL Albumin 2.3 L (3.5-5.0) g/dL Microbiology - Last 24 Hours (Table) 05/31/20 10:08 Blood Culture Gram Stain - Final Blood Blood Culture - Final Staphylococcus aureus 05/31/20 11:30 Urine Culture - Final Urine,Voided Citrobacter freundii 06/01/20 12:08 Blood Culture - Preliminary Blood No Growth after 24 hours 06/01/20 12:08 Blood Culture Gram Stain - Preliminary Blood Blood Culture - Preliminary Staphylococcus aureus Assessment and Plan Assessment: 1. Acute hypoxic respiratory failure multifactorial related to sepsis, acute exacerbation of diastolic CHF, and possibility of left lower lobe pneumonia with a possible parapneumonic effusion is not completely excluded, consider COVID 19 pneumonia, with PCR is pending at this time. Today's chest x-ray on 06/03/2020 showing focal atelectasis and consolidation at the left lung base, nodular density in the right base 2. Septic shock, likely related to urinary tract infection, secondary to gram- negative bacilli, final culture is pending. 3. Staphylococcus aureus bacteremia, suspect MSSA 4. Acute non-ST elevated myocardial infarction 5. Chronic diastolic CHF with preserved EF of 50-55 percent 6. Hyponatremia, thought to be hypovolemic, due to recent history of paracentesis, and diuretic therapy for liver cirrhosis, diuretics on hold, p atient received Tolvaptan, currently on 3% hypertonic saline 7. Valvular heart disease, with moderately severe mitral regurgitation, severe tricuspid regurgitation, and pulmonary hypertension with right-sided pressures 51 mmHg 8. Right middle lobe benign nodule, present since September 2017, has remained stable, partially calcified, thought to be related to old granulomatous disease 9. Chronic smoker 10. Coronary artery disease 11. Chronic A. fib on Eliquis 12. Nonalcoholic liver cirrhosis, with recurrent ascites, requiring paracentesis 13. Hypotension, likely related to hypovolemia, and sepsis component may be present related to possibility of left lung pneumonia 14. His history of myocardial infarction 15. History of hypothyroidism 16. Chronic back pain with previous surgery 17. History of BPH with prostate surgery Plan: The patient was seen and evaluated by Dr. Acosta Chest x-ray and labs reviewed Continue Rocephin Wean down the norepinephrine as tolerated We will continue to follow and make further recommendations based on his clinical status I, the cosigning physician, performed a history & physical examination of the patient. Lungs sounds with basilar crackles, scattered rhonchi. Maintaining good O2 saturations in the 90s on 3 L/m per nasal cannula. I discussed the assessment and plan of care with my nurse practitioner, Ele Oropeza. I attest to the above note as dictated by her.
[2020-06-03] MEDS: NOREPINEPHRINE 4 MG in SODIUM CHLORIDE 0.9% 250 ML IV SCH (12:14)
--- NOTE | 2020-06-03 16:29 | P.PN ---
Subjective Progress Note Date: 06/03/20 Principal diagnosis: Fever/dyspnea/sepsis Hyponatremia 06/01/2020 patient seen in follow-up in the intensive care unit, he is resting comfortably in bed. He is to be in no acute distress, he remains on supplemental oxygen, 4 L/m with a pulse ox of 94-96%, did have a fever with a T-max of 100.5F last night. Remains on 3% hypertonic saline at a rate of 35 ML per hour, nephrology is managing, today's sodium is 124, B1 is 54, creatinine 0.95. White count was up to 15.6 on yesterday's evening labs, and down to 11.9, yesterday we added Rocephin empirically with the suspicion of sepsis. Overnight his blood culture was positive for gram-positive cocci, 10 report is pending, urinalysis came back indicating presence of urinary tract infection, urinary culture is pending, pro- calcitonin level elevated at 1.11. This morning's chest x-ray showing continued focal atelectasis at the left base. patient denies any cough or congestion, his COVID 19 PCR is still pending at this time. Overnight patient also required Levothroid; remains on Florinef. 06/02/2020 Patient is seen and evaluated in follow-up in the intensive care unit. He is currently resting fairly comfortably in bed. Awake and alert in no acute distress. He is on 4 L/m per nasal cannula to maintain O2 saturation in the 90s. He has a 0.9 normal saline at KVO. His sodium is improved to 125. He is still requiring a small amount of norepinephrine currently at 6.24 mcg/m. Urine is growing gram-negative bacilli. Blood is showing staph aureus. Currently on vancomycin and ceftriaxone. Chest x-ray continues to show a nodular density in the right lung base. Retrocardiac density is seen as well. No significant change. White count 8.8. Hemoglobin 11.7. Platelet count 147. Sodium 125. Potassium 3.5. Bicarb 17. Creatinine 0.95. Cortisol level 21. Patient is being managed by critical care and vancomycin has been discontinued; patient remains on IV Rocephin; plan is to wean down norepinephrine along with a full dose of 1 L normal saline and hydrocortisone 100 mg IV piggyback 06/03/2020 Patient is seen and evaluated in follow-up in the intensive care unit. He is currently resting comfortably in bed. Awake and alert in no acute distress. He is currently on 3 L/m per nasal cannula. Still requiring norepinephrine at 3.8 mg/m. Cultures were positive for MSSA in the blood. Citrobacter freundii in the urine. He is currently on ceftriaxone. White count 8.7. Hemoglobin 10.9. Platelet count 121,000. Sodium 125. Potassium 4.1. Creatinine 0.91. AST 80. ALT 72. He remains on sodium bicarb tablets. 0.9 normal saline at 100 ML's per hour. Chest x-ray continues to show nodular density in the right lung base as well as left lower lobe infiltrate/atelectasis. Stable compared to previous. Plan is to continue to wean down norepinephrine as tolerated Objective - Vital Signs Vital signs: Vital Signs Temp 97.2 F L 06/03/20 09:00 Pulse 78 06/03/20 09:00 Resp 16 06/03/20 09:00 BP 86/62 06/03/20 09:00 Pulse Ox 98 06/03/20 09:00 Intake & Output 06/02/20 06/03/20 06/03/20 18:59 06:59 18:59 Intake Total 8258.103 1490.325 Output Total 433 3871 Balance 1440.355 -2564.675 Weight 84.4 kg Intake: Intake, IV Titration 8049.644 1845.325 Amount Norepinephrine 4 mg In 223.355 206.325 Sodium Chloride 0.9% 250 ml @ 0.05 MCG/KG/MIN 14. 535 mls/hr IV .[id number] SH[facility]A Rx#:[id number] Sodium Chloride 0.9% 1, 600 1100 000 ml @ 100 mls/hr IV . Q10H SH[facility]A Rx#:[id number] Sodium Chloride 0.9% 1, 1000 000 ml @ 999 mls/hr IV . Q1H1M ONE Rx#:[id number] cefTRIAXone 1 gm In 50 Sodium Chloride 0.9% 50 ml @ 100 mls/hr IVPB Q24HR SHAINA Rx#:[id number] Output: Urine 433 3871 Other: Voiding Method Indwelling Catheter Indwelling Catheter Indwelling Catheter - Exam GENERAL EXAM: Alert, 89-year-old frail looking white male, chronically ill- looking, 4 L of oxygen, pulse ox 97%, resting in bed in the droplet isolation in the ICU. comfortable in no apparent distress. HEAD: Normocephalic/atraumatic. EYES: Normal reaction of pupils, equal size. Conjunctiva pink, sclera white. NOSE: Clear with pink turbinates. THROAT: No erythema or exudates. NECK: No masses, no JVD, no thyroid enlargement, no adenopathy. CHEST: No chest wall deformity. Symmetrical expansion. LUNGS: Equal air entry with no crackles, wheeze, rhonchi or dullness. CVS: Irregular rate and rhythm, normal S1 and S2, no gallops, no murmurs, no rubs ABDOMEN: Soft, nontender. No hepatosplenomegaly, normal bowel sounds, no guarding or rigidity. EXTREMITIES: No clubbing, no edema, no cyanosis, 2+ pulses and upper and lower extremities. - Labs CBC & Chem 7: 06/03/20 03:17 06/03/20 11:16 Labs: Abnormal Lab Results - Last 24 Hours (Table) 06/02/20 06/03/20 06/03/20 Range/Units 03:32 03:17 03:17 RBC 3.37 L (4.30-5.90) m/uL Hgb 10.9 L (13.0-17.5) gm/dL Hct 32.9 L (39.0-53.0) % Plt Count 121 L (150-450) k/uL Sodium 125 L (137-145) mmol/L Carbon Dioxide 14 L (22-30) mmol/L BUN 48 H (9-20) mg/dL Glucose 184 H (74-99) mg/dL Osmolality 277 L (280-301) mosm/kg Calcium 7.2 L (8.4-10.2) mg/dL Total Bilirubin 1.7 H (0.2-1.3) mg/dL AST 80 H (17-59) U/L ALT 72 H (4-49) U/L Alkaline Phosphatase 215 H (38-126) U/L Total Protein 4.8 L (6.3-8.2) g/dL Albumin 2.3 L (3.5-5.0) g/dL Microbiology - Last 24 Hours (Table) 05/31/20 10:08 Blood Culture Gram Stain - Final Blood Blood Culture - Final Staphylococcus aureus 05/31/20 11:30 Urine Culture - Final Urine,Voided Citrobacter freundii 06/01/20 12:08 Blood Culture - Preliminary Blood No Growth after 24 hours 06/01/20 12:08 Blood Culture Gram Stain - Preliminary Blood Blood Culture - Preliminary Staphylococcus aureus 06/01/20 12:08 Blood Culture - Final Blood Assessment and Plan Assessment: 1. Acute hypoxic respiratory failure; multifactorial - Acute exacerbation diastolic CHF - Left lower lobe pneumonia/possible parapneumonic effusion/sepsis - Possible covert 19 vital infection Patient's chest x-ray today shows focal atelectasis and consolidation at left lower lung; patient's blood cultures are positive for gram-negative and gram- positive cocci bacteremia with components of septic shock; patient remains on IV Rocephin and vancomycin - Continue with supplemental oxygen as needed with plan to wean as tolerated - Covert ECF is pending 2. Non-ST elevation NM 3. Hypovolemic hyponatremia; possibly due to recent paracentesis and diuretic therapy; diuretics remain on hold; patient currently on 3% hypertonic saline 4. Chronic atrial fibrillation; remains rate controlled; continue with antic oagulation therapy 5. Hypothyroidism; continue with home dose of levothyroxine DVT prophylaxis; SCDs/systemic anticoagulation CODE STATUS; DO NOT RESUSCITATE
[2020-06-03] MEDS: hydrOXYzine HCL 25 MG TAB PO SCH (21:04)
[2020-06-04] MEDS ORDERED: FUROSEMIDE 10 MG/ML 4 ML VIAL IV STA (02:38)
[2020-06-04] MEDS: SODIUM CHLORIDE 0.9% 1,000 ML IV SCH (03:01)
[2020-06-04] MEDS: ACETAMINOPHEN TAB 325 MG TAB PO PRN ×3 (05:03→20:06)
[2020-06-04] MEDS: NOREPINEPHRINE 4 MG in SODIUM CHLORIDE 0.9% 250 ML IV SCH ×2 (05:04→20:13)
[2020-06-04 05:15] LABS: HCT 33.5 % (39.0-53.0); HGB 10.7 gm/dL (13.0-17.5); MCH 31.1 pg (25.0-35.0); MCHC 31.9 g/dL (31.0-37.0); MCV 97.6 fL (80.0-100.0); Platelet Count 126 k/uL (150-450); RBC 3.43 m/uL (4.30-5.90); WBC 8.5 k/uL (3.8-10.6)
[2020-06-04 05:38] LABS: Calcium 7.4 mg/dL (8.4-10.2); Total Bilirubin 1.5 mg/dL (0.2-1.3)
[2020-06-04 06:16] LABS: Albumin 2.3 g/dL (3.5-5.0); Potassium 3.8 mmol/L (3.5-5.1); Total Protein 4.7 g/dL (6.3-8.2)
[2020-06-04] MEDS ORDERED: POTASSIUM BICARBONATE/CIT AC 20 MEQ TABLET.EFF NG-TUBE SCH (07:00)
--- NOTE | 2020-06-04 07:11 | XR ---
EXAMINATION TYPE: XR chest 1V portable DATE OF EXAM: 06/04/2020 COMPARISON: 06/03/2020 HISTORY: Shortness of breath TECHNIQUE: Single frontal view of the chest is obtained. FINDINGS: The heart is enlarged and there is bilateral consolidation and small effusion. Suspect a t iny left pneumothorax measuring approximately less than 5%. Atherosclerotic change aorta. Right lower lobe pulmonary nodule stable. IMPRESSION: 1. Bilateral infiltrate and pleural effusion stable. There does appear to be a less than 5% left-side d pneumothorax. 2. Stable right lower lobe lung mass.
[2020-06-04] MEDS ORDERED: FUROSEMIDE 40 MG TAB PO SCH (09:00)
[2020-06-04] MEDS: ATORVASTATIN 40 MG TAB PO SCH (09:20)
[2020-06-04] MEDS: LEVOTHYROXINE 88 MCG TAB PO SCH (09:20)
[2020-06-04] MEDS: ASPIRIN 325 MG TAB PO SCH (09:20)
[2020-06-04] MEDS: SODIUM CHLORIDE TAB 1 GM TAB PO SCH ×2 (09:21→20:06)
[2020-06-04] MEDS: SODIUM BICARBONATE TAB 650 MG TAB PO SCH ×3 (09:21→20:06)
[2020-06-04] MEDS: APIXABAN 2.5 MG TABLET PO SCH (09:21)
[2020-06-04] MEDS: SPIRONOLACTONE 25 MG TAB PO SCH ×2 (09:21→20:13)
[2020-06-04] MEDS: MIDODRINE 5 MG TAB PO SCH ×3 (09:22→16:23)
[2020-06-04] MEDS: ISOSORBIDE MONONITRATE ER 15 MG TAB PO SCH (09:25)
--- NOTE | 2020-06-04 14:29 | P.PN ---
Subjective Patient is seen in follow-up for hyponatremia. He did receive 3% saline yesterday. He is also maintained on Lasix and is also on sodium chloride t ablets. Sodium level 130 this morning. He is off all vasopressors. No chest pain or shortness of breath. He is planning on going home on hospice. Vital signs: Blood pressure on the lower side. General: The patient appeared well nourished and normally developed. HEENT: Head exam is unremarkable. Neck is without jugular venous distension. LUNGS: Breath sounds decreased. HEART: Rate and Rhythm are regular. ABDOMEN: Soft, nontender. EXTREMITITES: 2+ edema. Objective - Vital Signs Vital signs: Vital Signs Temp 97.9 F 06/04/20 08:00 Pulse 82 06/04/20 12:00 Resp 22 06/04/20 12:00 BP 87/64 06/04/20 12:00 Pulse Ox 89 L 06/04/20 12:00 Intake & Output 06/03/20 06/04/20 06/04/20 18:59 06:59 18:59 Intake Total 1585 1341.571 370 Output Total 419 857 225 Balance 1166 484.571 145 Weight 86.2 kg Intake: Intake, IV Titration 1360 941.571 170 Amount Norepinephrine 4 mg In 141.571 Sodium Chloride 0.9% 250 ml @ 0.05 MCG/KG/MIN 14. 535 mls/hr IV .[id number] [facility]A Rx#:[id number] Sodium Chloride 0.9% 1, 1200 500 000 ml @ 100 mls/hr IV . Q10H [facility] Rx#:[id number] Sodium Chloride 0.9% 1, 120 120 000 ml @ 20 mls/hr IV . Q24H [facility]A Rx#:[id number] Sodium Chloride 3%( 160 180 Hypertonic) 500 ml @ 30 mls/hr IV .[id number] [facility]A Rx #:[id number] cefTRIAXone 1 gm In 50 Sodium Chloride 0.9% 50 ml @ 100 mls/hr IVPB Q24HR [facility]A Rx#:[id number] Oral 225 400 200 Output: Urine 419 857 225 Other: Voiding Method Indwelling Catheter Indwelling Catheter Indwelling Catheter - Labs CBC & Chem 7: 06/04/20 04:45 06/04/20 04:45 Labs: Abnormal Lab Results - Last 24 Hours (Table) 06/03/20 06/03/20 06/04/20 Range/Units 16:40 20:20 01:15 RBC (4.30-5.90) m/uL Hgb (13.0-17.5) gm/dL Hct (39.0-53.0) % Plt Count (150-450) k/uL Sodium 127 L 128 L 129 L (137-145) mmol/L Chloride (98-107) mmol/L Carbon Dioxide (22-30) mmol/L BUN (9-20) mg/dL Glucose (74-99) mg/dL Calcium (8.4-10.2) mg/dL Total Bilirubin (0.2-1.3) mg/dL AST (17-59) U/L ALT (4-49) U/L Alkaline Phosphatase (38-126) U/L Total Protein (6.3-8.2) g/dL Albumin (3.5-5.0) g/dL 06/04/20 06/04/20 Range/Units 04:45 04:45 RBC 3.43 L (4.30-5.90) m/uL Hgb 10.7 L (13.0-17.5) gm/dL Hct 33.5 L (39.0-53.0) % Plt Count 126 L (150-450) k/uL Sodium 130 L (137-145) mmol/L Chloride 108 H (98-107) mmol/L Carbon Dioxide 16 L (22-30) mmol/L BUN 48 H (9-20) mg/dL Glucose 120 H (74-99) mg/dL Calcium 7.4 L (8.4-10.2) mg/dL Total Bilirubin 1.5 H (0.2-1.3) mg/dL AST 100 H (17-59) U/L ALT 92 H (4-49) U/L Alkaline Phosphatase 217 H (38-126) U/L Total Protein 4.7 L (6.3-8.2) g/dL Albumin 2.3 L (3.5-5.0) g/dL Microbiology - Last 24 Hours (Table) 06/01/20 12:08 Blood Culture Gram Stain - Final Blood Blood Culture - Final Staphylococcus aureus 06/01/20 12:08 Blood Culture - Preliminary Blood No Growth after 48 hours Assessment and Plan Plan: Assessment: 1. Hyponatremia status post 3% saline. Currently hypervolemic. Sodium level 130 this morning. Cortisol level normal. Urine sodium noted to be less than 10 yesterday despite being on sodium chloride tablets. Low urine sodium can also be seen with hepatorenal and cardiorenal syndrome. 2. Staph aureus bacteremia and Citrobacter UTI maintained on antibiotics. 3. Volume overload. Status post IV Lasix this morning. 4. MARK ANTHONY mostly prerenal improved with IV hydration. 5. History of nonalcoholic liver cirrhosis requiring paracentesis. Plan: Maintain midodrine 10 mg 3 times daily. Maintain Aldactone. I will change Lasix to Demadex 20 mg once daily. Decrease sodium chloride tablets to 1 g twice a day due to edema. Patient is considering going home on hospice.
--- NOTE | 2020-06-04 14:37 | CDI ---
Documentation Clarification Form Date: 06/04/2020 02:01:08 PM From: Cassy Perla RN CCDS Admit Date: 05/25/2020 02:05:00 AM Patient Name: Shahzad Sanchez Visit Number: [id number] Discharge Date: ATTENTION: The Clinical Documentation Specialists (CDI) and [facility] Coding Staff appreciate your assistance in clarifying documentation. Please respond to the clarification below the line at the bottom and electronically sign. The CDI & [facility] Coding staff will review the response and follow-up if needed. Please note: Queries are made part of the Legal Health Record. If you have any questions, please contact the author of this message via ITS. Dr. Erica Galicia pressure ulcer is documented in the Nursing Physical Assessment 05/25 through 06/04 History/Risk Factors: 89-year-old male presents to the ED with chest pain for 1- 2 days. Medical History: Atrial Fibrillation; CAD; Heart Failure; NE; Clinical Indicators: Location: Coccyx Wound description: Stage II pressure ulcer; color pink Treatment: Optifoam border 4 x 4; Hydrocolloid Exuderm Satin 4 x 4; Optifoam Gentle Liquitrap Bordered 4 x 4; Elements for accurate and compliant documentation of an ulcer: *The location/laterality of the ulcer *Etiology (decubitus/pressure, diabetic, PVD) *Stage I-IV, Unstageable, Suspected Deep Tissue Injury (To the deepest stage) *If the ulcer was present at admission (POA) or occurred after admission In your professional opinion, can you please clarify the diagnosis, location, laterality and whether present on admission (POA): Stage 1 Pressure/Decubitus Ulcer (intact skin, non-blanching redness of local area) Stage 2 Pressure/Decubitus Ulcer (Partial thickness, loss of dermis, pink wound bed) Other condition, please specify Unable to determine Please indicate etiology of pressure ulcer (if known). (Last Revision: April 2017) Stage 2 Pressure/Decubitus Ulcer MTDD
--- NOTE | 2020-06-04 15:08 | CDI ---
Documentation Clarification Form Date: 06/04/2020 02:38:40 PM From: Cassy Perla RN CCDS Admit Date: 05/25/2020 02:05:00 AM Patient Name: Shahzad Sanchez Visit Number: [id number] Discharge Date: ATTENTION: The Clinical Documentation Specialists (CDI) and [facility] Coding Staff appreciate your assistance in clarifying documentation. Please respond to the clarification below the line at the bottom and electronically sign. The CDI & [facility] Coding staff will review the response and follow-up if needed. Please note: Queries are made part of the Legal Health Record. If you have any questions, please contact the author of this message via ITS. Dr. Maldonado Conflicting documentation has been found in the medical record: Internal Medicine progress note 05/26 through 05/31 Elevated troponin, possibly chronically elevated at values at 0.521 per Cardiology. Pulmonology consult and progress notes 05/31 through 06/03 Acute non-ST elevated myocardial infarction. History/Risk Factors: 89-year-old male presents to the ED with chest pain for 1- 2 days. Medical History: Atrial Fibrillation; CAD; Heart Failure; ME; Clinical Indicators: EKG 05/25: Atrial fibrillation, Incomplete right bundle branch block, Right ventricular hypertrophy, Inferior infarct, age undetermined, Abnormal ECG Troponin Labs: 05/25: 0.907; 0.917; 0.818; 05/26: 0.521 Bun Labs: 05/25: 119; 110; 100; 88; Creatinine Lab 05/25: 1.02; 0.90; 0.89; 0.73; ECHO 05/25: Left ventricular systolic function is low normal with, an EF between 50-55% Increased LAP Grade 2 Diastolic Dysfunction. Cardiology Consult 05/25: Elevated troponin, probably related to the intervascular volume depletion and renal failure Treatment: 05/25 Nitrostat, Midodrine. Imdur, 05/26 Aspirin, 05/21 Lasix iv x2; 05/26Sodium Bicarb, sodium Chloride tabs, In your opinion, what is the most clinically appropriate diagnosis for this patient? Non-ST elevation ME Non-ST elevation ME Ruled Out Other explanation of clinical findings Unable to determine (no explanation for clinical findings) Answered on Progress Note 06/04 Internal Medicine Acute NSTEMI (Last Revision: October 2017) MTDD
[2020-06-04] MEDS: IPRATROPIUM-ALBUTEROL 3 ML NEB INHALATION SCH ×2 (15:11→20:59)
[2020-06-04] MEDS: TORSEMIDE 20 MG TAB PO SCH (15:15)
--- NOTE | 2020-06-04 15:54 | P.PN ---
Subjective Progress Note Date: 06/04/20 This is an 89-year-old male patient with chronic CHF/diastolic dysfunction with secondary pulmonary hypertension, CAD, previous MT, liver cirrhosis, multiple paracentesis for recurrent ascites resuscitation with liver cirrhosis, chronic atrial fibrillation, CAD. The patient is severe concentric LVH, normal ejection fraction, moderate MR, moderate to severe TR and pulmonary artery pressures estimated to be around 50 mmHg. The patient originally came into the hospital because of hyponatremia, dyspnea, fever and abscess. On admission, the patient had bilateral airspace opacities and there was a concern of an underlying left lower lobe pneumonia. His proBNP level was 10,005 100. The serum sodium was 120. Serum osmolality was 276. Urine sodium was at 30, cortisol level was 24, TSH was within normal limits. Subsequent 2 sets of blood cultures came back positive for MSSA, specifically her blood cultures from 05/31/2020 06/01/2020. Another urine culture came back positive for Citrobacter. IV Rocephin. Hyponatremia was treated with hypertonic saline and the patient was given a dose of Talvaptan. The white cell count dropped and the patient's sodium level gra dually improved and currently up to 128. The patient was treated in the intensive care unit. Chest x-ray continued to have some no dermatitis in the right lung base in addition to consolidation/infiltrate of the left lung. Afebrile and currently on only 3 L of oxygen by nasal cannula. Noted the patient's electrolyte imbalance improved. Sodium level is up with his currently up to 130. The patient continues to have a component of non-anion gap metabolic acidosis with a serum bicarb of 16. Potassium level is at 3.8. The patient has been taken off pressors earlier this morning and the patient is currently on midodrine. I'm going to gradually start the patient a combination of Lasix and Aldactone. No fever. No chills. He does have some increased wheezing. The cano virus Covid 19 testing was negative and the patient is currently on 2 L of oxygen by nasal cannula. He remains in atrial fibrillation. Rate is at 96. 3% sodium was off since midnight. The patient has been off pressors since early this morning. IV fluids with normal state rate of 20 mL an hour. Objective - Vital Signs Vital signs: Vital Signs Temp 97.9 F 06/04/20 08:00 Pulse 82 06/04/20 12:00 Resp 22 06/04/20 12:00 BP 87/64 06/04/20 12:00 Pulse Ox 89 L 06/04/20 12:00 Intake & Output 06/03/20 06/04/20 06/04/20 18:59 06:59 18:59 Intake Total 1585 1341.571 370 Output Total 419 857 225 Balance 1166 484.571 145 Weight 86.2 kg Intake: Intake, IV Titration 1360 941.571 170 Amount Norepinephrine 4 mg In 141.571 Sodium Chloride 0.9% 250 ml @ 0.05 MCG/KG/MIN 14. 535 mls/hr IV .[id number] SHAINA Rx#:[id number] Sodium Chloride 0.9% 1, 1200 500 000 ml @ 100 mls/hr IV . Q10H [facility]AINA Rx#:[id number] Sodium Chloride 0.9% 1, 120 120 000 ml @ 20 mls/hr IV . Q24H SHAINA Rx#:[id number] Sodium Chloride 3%( 160 180 Hypertonic) 500 ml @ 30 mls/hr IV .[id number] SHAINA Rx #:[id number] cefTRIAXone 1 gm In 50 Sodium Chloride 0.9% 50 ml @ 100 mls/hr IVPB Q24HR SHAINA Rx#:[id number] Oral 225 400 200 Output: Urine 419 857 225 Other: Voiding Method Indwelling Catheter Indwelling Catheter Indwelling Catheter - Exam GENERAL EXAM: Alert, 89-year-old frail looking male patient, chronically ill-l ooking, 3 L of oxygen, pulse ox 98%, resting in bed in the droplet isolation in the ICU. HEAD: Normocephalic/atraumatic. EYES: Normal reaction of pupils, equal size. Conjunctiva pink, sclera white. NOSE: Clear with pink turbinates. THROAT: No erythema or exudates. NECK: No masses, no JVD, no thyroid enlargement, no adenopathy. CHEST: No chest wall deformity. Symmetrical expansion. LUNGS: Equal air entry with basilar crackles and scattered rhonchi. CVS: Irregular rate and rhythm, normal S1 and S2, no gallops, no murmurs, no rubs ABDOMEN: Soft, nontender. No hepatosplenomegaly, normal bowel sounds, no guarding or rigidity. EXTREMITIES: No clubbing, no edema, no cyanosis, 2+ pulses and upper and lower extremities. MUSCULOSKELETAL: Muscle strength and tone normal. SPINE: No scoliosis or deformity SKIN: Multiple areas of ecchymosis involving arms CENTRAL NERVOUS SYSTEM: No focal deficits, tone is normal in all 4 extremities. PSYCHIATRIC: Alert and oriented -3. Appropriate affect. Intact judgment and insight. - Labs CBC & Chem 7: 06/04/20 04:45 06/04/20 04:45 Labs: Abnormal Lab Results - Last 24 Hours (Table) 06/03/20 06/03/20 06/04/20 Range/Units 16:40 20:20 01:15 RBC (4.30-5.90) m/uL Hgb (13.0-17.5) gm/dL Hct (39.0-53.0) % Plt Count (150-450) k/uL Sodium 127 L 128 L 129 L (137-145) mmol/L Chloride (98-107) mmol/L Carbon Dioxide (22-30) mmol/L BUN (9-20) mg/dL Glucose (74-99) mg/dL Calcium (8.4-10.2) mg/dL Total Bilirubin (0.2-1.3) mg/dL AST (17-59) U/L ALT (4-49) U/L Alkaline Phosphatase (38-126) U/L Total Protein (6.3-8.2) g/dL Albumin (3.5-5.0) g/dL 06/04/20 06/04/20 Range/Units 04:45 04:45 RBC 3.43 L (4.30-5.90) m/uL Hgb 10.7 L (13.0-17.5) gm/dL Hct 33.5 L (39.0-53.0) % Plt Count 126 L (150-450) k/uL Sodium 130 L (137-145) mmol/L Chloride 108 H (98-107) mmol/L Carbon Dioxide 16 L (22-30) mmol/L BUN 48 H (9-20) mg/dL Glucose 120 H (74-99) mg/dL Calcium 7.4 L (8.4-10.2) mg/dL Total Bilirubin 1.5 H (0.2-1.3) mg/dL AST 100 H (17-59) U/L ALT 92 H (4-49) U/L Alkaline Phosphatase 217 H (38-126) U/L Total Protein 4.7 L (6.3-8.2) g/dL Albumin 2.3 L (3.5-5.0) g/dL Microbiology - Last 24 Hours (Table) 06/01/20 12:08 Blood Culture - Preliminary Blood No Growth after 72 hours 06/01/20 12:08 Blood Culture Gram Stain - Final Blood Blood Culture - Final Staphylococcus aureus Assessment and Plan Plan: 1. Acute hypoxic respiratory failure multifactorial related to sepsis, acute exacerbation of diastolic CHF, and possibility of left lower lobe pneumonia with a possible parapneumonic effusion is not completely excluded, and the for now the patient has stable bilateral pulmonary infiltrates/effusion with a questionable left apical pneumothorax which is less than 5% and has a chronic stable noted opacity in the right lower lobe. 2. Septic shock, likely related to urinary tract infection, secondary to Citrobacter in addition to MSSA bacteremia , and the patient is currently on IV Rocephin and the patient is currently off pressors 3. Hypotension secondary to above, currently off pressors since early this morning 4. Acute non-ST elevated myocardial infarction 5. Chronic diastolic CHF with preserved EF of 50-55 percent 6. Hyponatremia, thought to be hypovolemic, due to recent history of paracentesis, and diuretic therapy for liver cirrhosis, diuretics on hold, patient received Tolvaptan, currently on 3% hypertonic saline, and the patient is currently off hypertonic saline and the sodium level is up 130. 7. Valvular heart disease, with moderately severe mitral regurgitation, severe tricuspid regurgitation, and pulmonary hypertension with right-sided pressures 51 mmHg 8. Right middle lobe benign nodule, present since September 2017, has remained stable, partially calcified, thought to be related to old granulomatous disease 9. Chronic smoker 10. Coronary artery disease 11. Chronic A. fib on Eliquis 12. Nonalcoholic liver cirrhosis, with recurrent ascites, requiring paracentesis 13. Chronic back pain with previous surgery 14. History of BPH with prostate surgery Plan The patient is currently off pressors. Start Lasix 40 mg by mouth daily Start the patient on Aldactone mg by mouth twice a day IV fluids to KVO Started patient on DuoNeb nebulized treatments around the clock Transfer this patient to medical surgical floor Consider hospice care
[2020-06-04] MEDS: hydrOXYzine HCL 25 MG TAB PO SCH (20:06)
[2020-06-05] MEDS: SODIUM CHLORIDE 0.9% 1,000 ML IV SCH ×2 (04:32→20:27)
[2020-06-05] MEDS: SODIUM BICARBONATE TAB 650 MG TAB PO SCH ×3 (08:08→20:27)
[2020-06-05] MEDS: APIXABAN 2.5 MG TABLET PO SCH (08:08)
[2020-06-05] MEDS: MIDODRINE 5 MG TAB PO SCH ×3 (08:08→16:15)
[2020-06-05] MEDS: ATORVASTATIN 40 MG TAB PO SCH (08:08)
[2020-06-05] MEDS: TORSEMIDE 20 MG TAB PO SCH ×2 (08:08→20:27)
[2020-06-05] MEDS: LEVOTHYROXINE 88 MCG TAB PO SCH (08:08)
[2020-06-05] MEDS: SPIRONOLACTONE 25 MG TAB PO SCH ×2 (08:08→20:27)
[2020-06-05] MEDS: SODIUM CHLORIDE TAB 1 GM TAB PO SCH (08:08)
[2020-06-05] MEDS: IPRATROPIUM-ALBUTEROL 3 ML NEB INHALATION SCH ×4 (08:14→19:26)
--- NOTE | 2020-06-05 10:41 | XR ---
EXAMINATION TYPE: XR chest 1V portable DATE OF EXAM: 06/05/2020 COMPARISON: 06/04/2020 INDICATION: Short of breath TECHNIQUE: Single frontal view of the chest is obtained. FINDINGS: The heart size is prominent. The pulmonary vasculature is normal. Left pleural effusion is present. There is opacification of the left lower lobe. Nodules at the right lung base. There is a catheter present on the left with the tip in the proximal right atrium. No pneumothorax is evident. IMPRESSION: 1. Left pleural effusion. 2. Left lower lobe infiltrate. 3. Right lung base nodule
[2020-06-05 10:52] LABS: HCT 31.2 % (39.0-53.0); HGB 10.4 gm/dL (13.0-17.5); MCH 32.7 pg (25.0-35.0); MCHC 33.5 g/dL (31.0-37.0); MCV 97.7 fL (80.0-100.0); Platelet Count 127 k/uL (150-450); RBC 3.19 m/uL (4.30-5.90)
--- NOTE | 2020-06-05 13:29 | P.PN ---
Subjective Patient is seen in follow-up for hyponatremia. Status post 3% saline on June 03. He is also maintained on spironolactone, torsemide as well as sodium chloride tablets. Sodium level 130 as of yesterday. He is off all vasopressors. No chest pain or shortness of breath. Oral intake is poor. Quite edematous. Vital signs: Blood pressure on the lower side. General: The patient appeared well nourished and normally developed. HEENT: Head exam is unremarkable. Neck is without jugular venous distension. LUNGS: Breath sounds decreased. HEART: Rate and Rhythm are regular. ABDOMEN: Soft, nontender. EXTREMITITES: 2+ edema. Objective - Vital Signs Vital signs: Vital Signs Temp 97.4 F L 06/05/20 07:00 Pulse 78 06/05/20 07:00 Resp 25 H 06/05/20 07:00 BP 85/53 06/05/20 07:00 Pulse Ox 98 06/05/20 07:00 Intake & Output 06/04/20 06/05/20 06/05/20 18:59 06:59 18:59 Intake Total 370 100 Output Total 224 340 5459 Balance 145 -550 -1150 Intake: Intake, IV Titration 170 Amount Sodium Chloride 0.9% 1, 120 000 ml @ 20 mls/hr IV . Q24H [facility] Rx#:[id number] cefTRIAXone 1 gm In 50 Sodium Chloride 0.9% 50 ml @ 100 mls/hr IVPB Q24HR [facility] Rx#:[id number] Oral 200 100 Output: Urine 581 335 9640 Other: Voiding Method Indwelling Catheter Indwelling Catheter Indwelling Catheter - Labs CBC & Chem 7: 06/05/20 10:15 06/04/20 04:45 Labs: Abnormal Lab Results - Last 24 Hours (Table) 06/05/20 Range/Units 10:15 RBC 3.19 L (4.30-5.90) m/uL Hgb 10.4 L (13.0-17.5) gm/dL Hct 31.2 L (39.0-53.0) % Plt Count 127 L (150-450) k/uL Microbiology - Last 24 Hours (Table) 06/04/20 09:40 Blood Culture - Preliminary Blood No Growth after 24 hours 06/04/20 09:25 Blood Culture - Preliminary Blood No Growth after 24 hours 06/01/20 12:08 Blood Culture - Preliminary Blood No Growth after 72 hours Assessment and Plan Plan: Assessment: 1. Hyponatremia status post 3% saline. Currently hypervolemic. Sodium level 130 as of yesterday. Cortisol level normal. Urine sodium noted to be less than 10 yesterday despite being on sodium chloride tablets. Low urine sodium can also be seen with hepatorenal and cardiorenal syndrome. 2. Staph aureus bacteremia and Citrobacter UTI maintained on antibiotics. 3. Volume overload. 4. MARK ANTHONY mostly prerenal improved with IV hydration. 5. History of nonalcoholic liver cirrhosis requiring paracentesis. 6. Metabolic acidosis, non-gap, due to compensation for underlying respiratory alkalosis. Maintained on oral bicarbonate. Plan: Maintain midodrine 10 mg 3 times daily. Maintain Aldactone. Increase Demadex to 20 mg twice daily. Decrease sodium chloride tablets to 1 g daily due to edema. Patient was considering going home on hospice but this seems to be on hold currently.
[2020-06-05 15:02] VITALS: BMI 27.2
--- NOTE | 2020-06-05 15:10 | P.PN ---
Subjective Progress Note Date: 06/05/20 Principal diagnosis: Sepsis, hyponatremia, shortness of breath, fever 89-year-old white male patient of Dr. Angie Palomares, with past medical history of chronic atrial fibrillation on Eliquis, CAD, chronic CHF, previous history of myocardial infarction, hypothyroidism, chronic liver cirrhosis requiring multiple paracentesis, former smoker, BPH, who was admitted to the hospital on 05/27/2020 when he came in for evaluation of chest pain and was diagnosed with non-ST elevated myocardial infarction. His initial troponin was 0.907, the second third and fourth troponins came back as 0.917, 0.820, 0.521. ProBNP on admission was 10,500. Serum sodium on admission was 120, urine osmolality was 276, urine random sodium was 30, cortisol level was 24, TSH was within normal limit at 2.1. Admission chest x-ray showed bilateral airspace opacities within the central lungs and lower lungs with a suggestion of early pulmonary vascular congestion and infectious process could not be entirely excluded. There was a mention of a prominent nodule within the right lower lobe measuring up to 1.5 cm this was compared to his previous chest x-ray dated 09/18/2019, and appeared roughly unchanged. Going back to 03/14/2018 patient had this right lower lobe nodule at the time measuring 1.6 cm, the size is not increase over the course of [address] chest dated 03/22/2018 showed partially calcified 8mm nodule in the anterior right middle lobe, there was thought to be related to old granulomatous disease. More recent CT of the abdomen and pelvis dated 09/27/2019 showed stable 1.2 cm right middle lobe calcified nodule. Patient was admitted, he was being treated for hyponatremia, acute exacerbation of chronic diastolic CHF. Patient also has a valvular heart disease, with a moderately severe mitral regurgitation, severe tricuspid regurgitation, echocardiogram showed EF between 50-55%, moderately severe pulmonary hypertension with right-sided pressures of 51.3 mmHg. His sodium levels were thought to be related to hypovolemia related to diuretic therapy, and a recent history of paracentesis on May 11 would removal of 3.6 L. Patient is on Lasix and Aldactone twice daily on a regular basis, no lower extremity edema, blood pressures were low throughout his admission, was systolic in the 80s. Patient denies any fever or chills, admission blood work showing a white blood cell count of 9.0, hemoglobin of 14.1, platelet count of 142, sodium 120, potassium is 5.2, chloride is 91, CO2 is 21, BUN of 119, creatinine is 1.02, AST was 128, ALT was 121, alkaline phosphatase was 224. Patient was evaluated by cardiology and recommended medical treatment, with a plan for a stress test and a possibility of a heart catheterization. Yesterday patient's hyponatremia became worse, patient continued to be hypotensive, serum sodium was 119, and a nephrology decided to start the patient on 3% saline. At the same time patient became more short of breath, and patient had the fever with a T-max of 99.9F, coronavirus PCR was sent and is pending at this time. She was placed on supplemental oxygen 4 L, is transferred to the intensive care unit, he seen in intensive care unit this morning where he is resting in bed, appears to be in no acute distress, he is satting about 97% on 4 L, his blood pressure still remains low, 74/53 this morning. He is on 3% hypertonic saline at a rate of 30 ML per hour. No other drips. Is awake and alert, he is responding appropriately, his serum sodium level is 121 today. His white blood cell count is 7.3, hemoglobin of 13.3, serum potassium level is 4.6, BUN of 53 and creatinine 0.87. Denies any chest pain, remains in atrial fibrillation with a controlled rate. He is producing urine, in the order of 75-235 ML per hour. His diuretics in the form of Lasix remain on hold, patient has received Tolvaptan per nephrology, and he is on Florinef, and will be started on Midrin. On 06/01/2020 patient seen in follow-up in the intensive care unit, he is resting comfortably in bed, slightly more weak on today's exam that she was ye day. He is to be in no acute distress, he remains on supplemental oxygen, 4 L/m with a pulse ox of 94-96%, did have a fever with a T-max of 100.5F last night. Remains on 3% hypertonic saline at a rate of 35 ML per hour, nephrology is managing, today's sodium is 124, B1 is 54, creatinine 0.95. White count was up to 15.6 on yesterday's evening labs, and down to 11.9, yesterday we added Rocephin empirically with the suspicion of sepsis. Overnight his blood culture was positive for gram-positive cocci, 10 report is pending, urinalysis came back indicating presence of urinary tract infection, urinary culture is pending, pro- calcitonin level elevated at 1.11. This morning's chest x-ray showing continued focal atelectasis at the left base. patient denies any cough or congestion, his COVID 19 PCR is still pending at this time. Overnight patient also required start of vasopressor support, in the form of Levothroid infusing at 3.5 mics per minute, remains on Florinef. No abdominal pain, no vomiting. No chest pain, no hemoptysis. On 06/05/2020 patient seen in follow-up on medical surgical floor. He is awake and alert, he is eating his lunch, denies any acute distress, he is on 4 L of oxygen with pulse ox of 98%, right pulse ox was 99%, blood pressures 85/53 this morning, he remains on midodrine, clinically he is asymptomatic, no altered mentation, he is responding appropriately, his been afebrile, remains on antibiotics for MSSA bacteremia, and a urinary tract infection related to Citrobacter. Current antibiotic coverage is with IV Rocephin to which both organisms are sensitive to, no compressive chest pain, no palpitations, follow blood cultures have shown no growth at the 24-hour laura. Patient was transferred out of intensive care unit yesterday, there was a discussion about possible hospice, however his family states that she will return home with the visiting nurses, and they would like to continue with supportive treatment, code status is DO NOT RESUSCITATE. No nausea vomiting diarrhea, he is tolerating oral intake. Today's labs have been reviewed, CBC was done, no BMP, white blood cell count is 8.0, hemoglobin is 10.4. We resumed patient's Lasix and Aldactone, is currently on Demadex and Aldactone per nephrology. Objective - Vital Signs Vital signs: Vital Signs Temp 97.4 F L 06/05/20 14:34 Pulse 62 06/05/20 14:34 Resp 22 06/05/20 14:34 BP 82/53 06/05/20 14:34 Pulse Ox 99 06/05/20 14:34 Intake & Output 06/04/20 06/05/20 06/05/20 18:59 06:59 18:59 Intake Total 370 100 Output Total 461 217 9949 Balance 145 -550 -1150 Intake: Intake, IV Titration 170 Amount Sodium Chloride 0.9% 1, 120 000 ml @ 20 mls/hr IV . Q24H [facility] Rx#:[id number] cefTRIAXone 1 gm In 50 Sodium Chloride 0.9% 50 ml @ 100 mls/hr IVPB Q24HR [facility] Rx#:[id number] Oral 200 100 Output: Urine 362 213 4362 Other: Voiding Method Indwelling Catheter Indwelling Catheter Indwelling Catheter - Exam GENERAL EXAM: Alert, 89-year-old frail looking white male, chronically ill- looking, 4 L of oxygen, pulse ox 99%, resting in bed in the droplet isolation in the ICU. comfortable in no apparent distress. HEAD: Normocephalic/atraumatic. EYES: Normal reaction of pupils, equal size. Conjunctiva pink, sclera white. NOSE: Clear with pink turbinates. THROAT: No erythema or exudates. NECK: No masses, no JVD, no thyroid enlargement, no adenopathy. CHEST: No chest wall deformity. Symmetrical expansion. LUNGS: Equal air entry with no crackles, wheeze, rhonchi or dullness. CVS: Irregular rate and rhythm, normal S1 and S2, no gallops, no murmurs, no rubs ABDOMEN: Soft, nontender. No hepatosplenomegaly, normal bowel sounds, no guarding or rigidity. EXTREMITIES: No clubbing, no edema, no cyanosis, 2+ pulses and upper and lower extremities. MUSCULOSKELETAL: Muscle strength and tone normal. SPINE: No scoliosis or deformity SKIN: Multiple areas of ecchymosis involving arms CENTRAL NERVOUS SYSTEM: Alert and oriented -3. No focal deficits, tone is normal in all 4 extremities. PSYCHIATRIC: Alert and oriented -3. Appropriate affect. Intact judgment and insight. - Labs CBC & Chem 7: 06/05/20 10:15 06/04/20 04:45 Labs: Abnormal Lab Results - Last 24 Hours (Table) 06/05/20 Range/Units 10:15 RBC 3.19 L (4.30-5.90) m/uL Hgb 10.4 L (13.0-17.5) gm/dL Hct 31.2 L (39.0-53.0) % Plt Count 127 L (150-450) k/uL Microbiology - Last 24 Hours (Table) 06/01/20 12:08 Blood Culture - Preliminary Blood No Growth after 96 hours 06/04/20 09:40 Blood Culture - Preliminary Blood No Growth after 24 hours 06/04/20 09:25 Blood Culture - Preliminary Blood No Growth after 24 hours Assessment and Plan Plan: Assessment: #1. Acute hypoxic respiratory failure multifactorial related to sepsis, acute exacerbation of diastolic CHF, and possibility of left lower lobe pneumonia with a possible parapneumonic effusion is not completely excluded, consider COVID 19 pneumonia, with 19 PCR is pending at this time. Today's chest x-ray on 06/01/2020 showing focal atelectasis and consolidation at the left lung base #2. Septic shock, likely related to urinary tract infection, final culture is pending. #3. Gram-positive cocci bacteremia, final culture is pending #4. Acute non-ST elevated myocardial infarction #5. Chronic diastolic CHF with preserved EF of 50-55 percent #6. Hyponatremia, thought to be hypovolemic, due to recent history of paracentesis, and diuretic therapy for liver cirrhosis, diuretics on hold, patient received Tolvaptan, currently on 3% hypertonic saline #7. Valvular heart disease, with moderately severe mitral regurgitation, severe tricuspid regurgitation, and pulmonary hypertension with right-sided pressures 51 mmHg #8. Right middle lobe benign nodule, present since September 2017, has remained stable, partially calcified, thought to be related to old granulomatous disease #9. Chronic smoker #10. Coronary artery disease #11. Chronic A. fib on Eliquis #12. Nonalcoholic liver cirrhosis, with recurrent ascites, requiring paracentesis #13. Hypotension, likely related to hypovolemia, and sepsis component may be present related to possibility of left lung pneumonia #14. His history of myocardial infarction #15. History of hypothyroidism #16. Chronic back pain with previous surgery #17. History of BPH with prostate surgery Plan: Patient has remained stable in the last 24 hours, afebrile, repeat blood cultures have been negative, no worsening dyspnea, he is on room air, he is on appropriate antibiotics. Continue supportively treat the patient. Overall he is improving, has remained stable since transfer out of the intensive care unit. Long-term prognosis is guarded. No acute pulmonary/critical care issues at this point, pulmonary service will sign off and follow on as-needed basis. I performed a history & physical examination of the patient and discussed their management with my nurse practitioner, Cait Carlson. I reviewed the nurse practitioner's note and agree with the documented findings and plan of care. Lung sounds are positive for diminished breath sounds. The findings and the impression was discussed with the patient. I attest to the documentation by the nurse practitioner. Time with Patient: Less than 30
[2020-06-05 15:45] LABS: African American GFR (CKD) 56.1 (60.0-200.0); Albumin 2.8 g/dL (3.80-4.90); Albumin/Globulin Ratio 1.65 (1.60-3.17); Anion Gap 10.9 mmol/L (4.00-12.00); BUN/Creat Ratio 47.69 Ratio (12.00-20.00); Calcium 7.9 mg/dL (8.7-10.3); Carbon Dioxide 16.1 mmol/L (21.6-31.8); Globulin 1.7 g/dL (1.6-3.3); Non-African American GFR(CKD) 48.4 (60.0-200.0); Potassium 4.1 mmol/L (3.5-5.5); Total Bilirubin 1.6 mg/dL (0.3-1.2); Total Protein 4.5 g/dL (6.2-8.2)
[2020-06-05] MEDS: hydrOXYzine HCL 25 MG TAB PO SCH (20:27)
--- NOTE | 2020-06-05 23:55 | P.PN ---
Subjective Progress Note Date: 06/04/20 Principal diagnosis: Acute hypoxic respiratory failure; multifactorial 06/01/2020 patient seen in follow-up in the intensive care unit, he is resting comfortably in bed. He is to be in no acute distress, he remains on supplemental oxygen, 4 L/m with a pulse ox of 94-96%, did have a fever with a T-max of 100.5F last night. Remains on 3% hypertonic saline at a rate of 35 ML per hour, nephrology is managing, today's sodium is 124, B1 is 54, creatinine 0.95. White count was up to 15.6 on yesterday's evening labs, and down to 11.9, yesterday we added Rocephin empirically with the suspicion of sepsis. Overnight his blood culture was positive for gram-positive cocci, 10 report is pending, urinalysis came back indicating presence of urinary tract infection, urinary culture is pending, pro- calcitonin level elevated at 1.11. This morning's chest x-ray showing continued focal atelectasis at the left base. patient denies any cough or congestion, his COVID 19 PCR is still pending at this time. Overnight patient also required Levothroid; remains on Florinef. 06/02/2020 Patient is seen and evaluated in follow-up in the intensive care unit. He is currently resting fairly comfortably in bed. Awake and alert in no acute distress. He is on 4 L/m per nasal cannula to maintain O2 saturation in the 90s. He has a 0.9 normal saline at KVO. His sodium is improved to 125. He is still requiring a small amount of norepinephrine currently at 6.24 mcg/m. Urine is growing gram-negative bacilli. Blood is showing staph aureus. Currently on vancomycin and ceftriaxone. Chest x-ray continues to show a nodular density in the right lung base. Retrocardiac density is seen as well. No significant change. White count 8.8. Hemoglobin 11.7. Platelet count 147. Sodium 125. Potassium 3.5. Bicarb 17. Creatinine 0.95. Cortisol level 21. Patient is being managed by critical care and vancomycin has been discontinued; patient remains on IV Rocephin; plan is to wean down norepinephrine along with a full dose of 1 L normal saline and hydrocortisone 100 mg IV piggyback 06/03/2020 Patient is seen and evaluated in follow-up in the intensive care unit. He is currently resting comfortably in bed. Awake and alert in no acute distress. He is currently on 3 L/m per nasal cannula. Still requiring norepinephrine at 3.8 mg/m. Cultures were positive for MSSA in the blood. Citrobacter freundii in the urine. He is currently on ceftriaxone. White count 8.7. Hemoglobin 10.9. Platelet count 121,000. Sodium 125. Potassium 4.1. Creatinine 0.91. AST 80. ALT 72. He remains on sodium bicarb tablets. 0.9 normal saline at 100 ML's per hour. Chest x-ray continues to show nodular density in the right lung base as well as left lower lobe infiltrate/atelectasis. Stable compared to previous. Plan is to continue to wean down norepinephrine as tolerated 1115 2019 Patient is currently in the MICU. Patient was admitted to the hospital with hyponatremia shortness of breath and fever. Patient had MSSA bacteremia and serum sodium level was 120. Patient was given tolvaptan and hypertonic saline with improvement of sodium level. Patient was also hypotensive and was on pressor support. Currently off pressors. Sodium level is 130 today. Bicarb level is 16 and potassium 3.8. Continued on Lasix and Aldactone. Patient has been afebrile. Patient remains in atrial fibrillation. Anticoagulated with Eliquis. Nephrology and pulmonary is on board. Patient is being transferred to medical floor today. Prognosis guarded at this time. Current medications reviewed. Objective - Vital Signs Vital signs: Vital Signs Temp 97.4 F L 06/04/20 16:07 Pulse 88 06/04/20 16:07 Resp 23 06/04/20 16:07 BP 108/66 06/04/20 16:07 Pulse Ox 95 06/04/20 16:07 Intake & Output 06/03/20 06/04/20 06/04/20 18:59 06:59 18:59 Intake Total 1585 1341.571 370 Output Total 419 857 225 Balance 1166 484.571 145 Weight 86.2 kg Intake: Intake, IV Titration 1360 941.571 170 Amount Norepinephrine 4 mg In 141.571 Sodium Chloride 0.9% 250 ml @ 0.05 MCG/KG/MIN 14. 535 mls/hr IV .[id number] [facility] Rx#:[id number] Sodium Chloride 0.9% 1, 1200 500 000 ml @ 100 mls/hr IV . Q10H [facility] Rx#:[id number] Sodium Chloride 0.9% 1, 120 120 000 ml @ 20 mls/hr IV . Q24H [facility] Rx#:[id number] Sodium Chloride 3%( 160 180 Hypertonic) 500 ml @ 30 mls/hr IV .[id number] [facility] Rx #:[id number] cefTRIAXone 1 gm In 50 Sodium Chloride 0.9% 50 ml @ 100 mls/hr IVPB Q24HR [facility] Rx#:[id number] Oral 225 400 200 Output: Urine 419 857 225 Other: Voiding Method Indwelling Catheter Indwelling Catheter Indwelling Catheter - Exam - Exam GENERAL EXAM: Alert, 89-year-old frail looking white male, chronically ill- looking, 4 L of oxygen, pulse ox 97%, resting in bed in the droplet isolation in the ICU. comfortable in no apparent distress. HEAD: Normocephalic/atraumatic. EYES: Normal reaction of pupils, equal size. Conjunctiva pink, sclera white. NOSE: Clear with pink turbinates. THROAT: No erythema or exudates. NECK: No masses, no JVD, no thyroid enlargement, no adenopathy. CHEST: No chest wall deformity. Symmetrical expansion. Bibasilar diminished air entry. LUNGS: Equal air entry with no crackles, wheeze, rhonchi or dullness. CVS: Irregular rate and rhythm, normal S1 and S2, no gallops, no murmurs, no rubs ABDOMEN: Soft, nontender. No hepatosplenomegaly, normal bowel sounds, no guarding or rigidity. EXTREMITIES: No clubbing, no edema, no cyanosis, 2+ pulses and upper and lower extremities. - Labs CBC & Chem 7: 06/05/20 10:15 06/05/20 10:15 Labs: Abnormal Lab Results - Last 24 Hours (Table) 06/03/20 06/03/20 06/04/20 Range/Units 16:40 20:20 01:15 RBC (4.30-5.90) m/uL Hgb (13.0-17.5) gm/dL Hct (39.0-53.0) % Plt Count (150-450) k/uL Sodium 127 L 128 L 129 L (137-145) mmol/L Chloride (98-107) mmol/L Carbon Dioxide (22-30) mmol/L BUN (9-20) mg/dL Glucose (74-99) mg/dL Calcium (8.4-10.2) mg/dL Total Bilirubin (0.2-1.3) mg/dL AST (17-59) U/L ALT (4-49) U/L Alkaline Phosphatase (38-126) U/L Total Protein (6.3-8.2) g/dL Albumin (3.5-5.0) g/dL 06/04/20 06/04/20 Range/Units 04:45 04:45 RBC 3.43 L (4.30-5.90) m/uL Hgb 10.7 L (13.0-17.5) gm/dL Hct 33.5 L (39.0-53.0) % Plt Count 126 L (150-450) k/uL Sodium 130 L (137-145) mmol/L Chloride 108 H (98-107) mmol/L Carbon Dioxide 16 L (22-30) mmol/L BUN 48 H (9-20) mg/dL Glucose 120 H (74-99) mg/dL Calcium 7.4 L (8.4-10.2) mg/dL Total Bilirubin 1.5 H (0.2-1.3) mg/dL AST 100 H (17-59) U/L ALT 92 H (4-49) U/L Alkaline Phosphatase 217 H (38-126) U/L Total Protein 4.7 L (6.3-8.2) g/dL Albumin 2.3 L (3.5-5.0) g/dL Microbiology - Last 24 Hours (Table) 06/01/20 12:08 Blood Culture - Preliminary Blood No Growth after 72 hours 06/01/20 12:08 Blood Culture Gram Stain - Final Blood Blood Culture - Final Staphylococcus aureus Assessment and Plan Assessment: 1. Acute hypoxic respiratory failure; multifactorial - Acute exacerbation diastolic CHF - Left lower lobe pneumonia/possible parapneumonic effusion/sepsis - Possible covert 19 vital infection. PCR negative - MSSA Bacteremia - Septic shock likely due to Citrobacter UTI and MSSA bacteremia. Currently off pressors. 2. Acute Non-ST elevation NM 3. Hypovolemic hyponatremia; possibly due to recent paracentesis and diuretic t herapy; Treated with hypertonic saline and also received tolvaptan. Currently sodium level is improving. 4. Chronic atrial fibrillation; remains rate controlled; continue with anticoagulation therapy with eliquis. 5. Hypothyroidism; continue with home dose of levothyroxine 6. Nonalcoholic liver cirrhosis, with recurrent ascites, requiring paracentesis 7. Valvular heart disease, with moderately severe mitral regurgitation, severe tricuspid regurgitation, and pulmonary hypertension with right-sided pressures 51 mmHg DVT prophylaxis; SCDs/systemic anticoagulation CODE STATUS; DO NOT RESUSCITATE Plan: Patient is off pressor support. Continue with antibiotics in the form of ceftriaxone for MSSA bacteremia and Citrobacter UTI. Patient's patient was started on Lasix and Aldactone. Continue with current medications and follow-up closely. Continue with home medications. Will discuss with the family regarding CODE STATUS and treatment goals including hospice care. Time with Patient: Greater than 30
--- NOTE | 2020-06-05 23:56 | P.PN ---
Subjective Progress Note Date: 06/05/20 Principal diagnosis: Acute hypoxic respiratory failure; multifactorial 06/01/2020 patient seen in follow-up in the intensive care unit, he is resting comfortably in bed. He is to be in no acute distress, he remains on supplemental oxygen, 4 L/m with a pulse ox of 94-96%, did have a fever with a T-max of 100.5F last night. Remains on 3% hypertonic saline at a rate of 35 ML per hour, nephrology is managing, today's sodium is 124, B1 is 54, creatinine 0.95. White count was up to 15.6 on yesterday's evening labs, and down to 11.9, yesterday we added Rocephin empirically with the suspicion of sepsis. Overnight his blood culture was positive for gram-positive cocci, 10 report is pending, urinalysis came back indicating presence of urinary tract infection, urinary culture is pending, pro- calcitonin level elevated at 1.11. This morning's chest x-ray showing continued focal atelectasis at the left base. patient denies any cough or congestion, his COVID 19 PCR is still pending at this time. Overnight patient also required Levothroid; remains on Florinef. 06/02/2020 Patient is seen and evaluated in follow-up in the intensive care unit. He is currently resting fairly comfortably in bed. Awake and alert in no acute distress. He is on 4 L/m per nasal cannula to maintain O2 saturation in the 90s. He has a 0.9 normal saline at KVO. His sodium is improved to 125. He is still requiring a small amount of norepinephrine currently at 6.24 mcg/m. Urine is growing gram-negative bacilli. Blood is showing staph aureus. Currently on vancomycin and ceftriaxone. Chest x-ray continues to show a nodular density in the right lung base. Retrocardiac density is seen as well. No significant change. White count 8.8. Hemoglobin 11.7. Platelet count 147. Sodium 125. Potassium 3.5. Bicarb 17. Creatinine 0.95. Cortisol level 21. Patient is being managed by critical care and vancomycin has been discontinued; patient remains on IV Rocephin; plan is to wean down norepinephrine along with a full dose of 1 L normal saline and hydrocortisone 100 mg IV piggyback 06/03/2020 Patient is seen and evaluated in follow-up in the intensive care unit. He is currently resting comfortably in bed. Awake and alert in no acute distress. He is currently on 3 L/m per nasal cannula. Still requiring norepinephrine at 3.8 mg/m. Cultures were positive for MSSA in the blood. Citrobacter freundii in the urine. He is currently on ceftriaxone. White count 8.7. Hemoglobin 10.9. Platelet count 121,000. Sodium 125. Potassium 4.1. Creatinine 0.91. AST 80. ALT 72. He remains on sodium bicarb tablets. 0.9 normal saline at 100 ML's per hour. Chest x-ray continues to show nodular density in the right lung base as well as left lower lobe infiltrate/atelectasis. Stable compared to previous. Plan is to continue to wean down norepinephrine as tolerated 06 04 2020 Patient is currently in the MICU. Patient was admitted to the hospital with hyponatremia shortness of breath and fever. Patient had MSSA bacteremia and serum sodium level was 120. Patient was given tolvaptan and hypertonic saline with improvement of sodium level. Patient was also hypotensive and was on pressor support. Currently off pressors. Sodium level is 130 today. Bicarb level is 16 and potassium 3.8. Continued on Lasix and Aldactone. Patient has been afebrile. Patient remains in atrial fibrillation. Anticoagulated with Eliquis. Nephrology and pulmonary is on board. Patient is being transferred to medical floor today. Prognosis guarded at this time. 06/05/2020 Patient is more awake and oriented today. No complaints of chest pain or worsening shortness of breath. Still on oxygen at 4 L via nasal cannula. Currently being continued on torsemide and spironolactone. Blood pressure is low with SBP in 90s. Denied any dizziness or lightheadedness. Continued on antibiotics in the form of ceftriaxone for MSSA bacteremia. Repeat blood cultures have been negative so far. No nausea vomiting or diarrhea. Tolerating oral diet. Abdomen is distended again. Ultrasound-guided paracentesis will be ordered and family wants him to return home with home visiting nurse. CODE STATUS is DNR/DNI. Nephrology and pulmonary is on board. Current medications reviewed. Objective - Vital Signs Vital signs: Vital Signs Temp 98.0 F 06/05/20 19:45 Pulse 90 06/05/20 19:45 Resp 18 06/05/20 19:50 BP 97/63 06/05/20 19:45 Pulse Ox 90 L 06/05/20 19:45 Intake & Output 06/05/20 06/05/20 06/06/20 06:59 18:59 06:59 Intake Total 100 450 Output Total 650 1700 Balance -550 -1700 450 Weight 86.2 kg Intake: Oral 100 200 Tube Feeding 250 Output: Urine 650 1700 Other: Voiding Method Indwelling Catheter Indwelling Catheter Indwelling Catheter # Voids 0 - Exam - Exam GENERAL EXAM: Alert, 89-year-old frail looking white male, chronically ill- looking, 4 L of oxygen, pulse ox 97%, resting in bed in the droplet isolation in the ICU. comfortable in no apparent distress. HEAD: Normocephalic/atraumatic. EYES: Normal reaction of pupils, equal size. Conjunctiva pink, sclera white. NOSE: Clear with pink turbinates. THROAT: No erythema or exudates. NECK: No masses, no JVD, no thyroid enlargement, no adenopathy. CHEST: No chest wall deformity. Symmetrical expansion. Bibasilar diminished air entry. LUNGS: Equal air entry with no crackles, wheeze, rhonchi or dullness. CVS: Irregular rate and rhythm, normal S1 and S2, no gallops, no murmurs, no rubs ABDOMEN: Soft, nontender. No hepatosplenomegaly, normal bowel sounds, no guarding or rigidity. EXTREMITIES: No clubbing, no edema, no cyanosis, 2+ pulses and upper and lower extremities. - Labs CBC & Chem 7: 06/05/20 10:15 06/05/20 10:15 Labs: Abnormal Lab Results - Last 24 Hours (Table) 06/05/20 06/05/20 Range/Units 10:15 10:15 RBC 3.19 L (4.30-5.90) m/uL Hgb 10.4 L (13.0-17.5) gm/dL Hct 31.2 L (39.0-53.0) % Plt Count 127 L (150-450) k/uL Sodium 131 L (135-145) mmol/L Carbon Dioxide 16.1 L (21.6-31.8) mmol/L BUN 62.0 H (9.0-27.0) mg/dL Est GFR (CKD-EPI)AfAm 56.1 L (60.0-200.0) Est GFR (CKD-EPI)NonAf 48.4 L (60.0-200.0) BUN/Creatinine Ratio 47.69 H (12.00-20.00) Ratio Glucose 171 H (70-110) mg/dL Calcium 7.9 L (8.7-10.3) mg/dL Total Bilirubin 1.6 H (0.3-1.2) mg/dL AST 89 H (14-35) U/L ALT 98 H (10-49) U/L Alkaline Phosphatase 251 H (41-126) U/L Total Protein 4.5 L (6.2-8.2) g/dL Albumin 2.80 L (3.80-4.90) g/dL Microbiology - Last 24 Hours (Table) 06/01/20 12:08 Blood Culture - Preliminary Blood No Growth after 96 hours 06/04/20 09:40 Blood Culture - Preliminary Blood No Growth after 24 hours 06/04/20 09:25 Blood Culture - Preliminary Blood No Growth after 24 hours Assessment and Plan Assessment: 1. Acute hypoxic respiratory failure; multifactorial - Acute exacerbation diastolic CHF - Left lower lobe pneumonia/possible parapneumonic effusion/sepsis - Possible covert 19 vital infection. PCR negative - MSSA Bacteremia - Septic shock likely due to Citrobacter UTI and MSSA bacteremia. Currently off pressors. 2. Acute Non-ST elevation MS 3. Hypovolemic hyponatremia; possibly due to recent paracentesis and diuretic therapy; Treated with hypertonic saline and also received tolvaptan. Currently sodium level is improving. 4. Chronic atrial fibrillation; remains rate controlled; continue with anticoagulation therapy with eliquis. 5. Hypothyroidism; continue with home dose of levothyroxine 6. Nonalcoholic liver cirrhosis, with recurrent ascites, requiring paracentesis 7. Valvular heart disease, with moderately severe mitral regurgitation, severe tricuspid regurgitation, and pulmonary hypertension with right-sided pressures 51 mmHg DVT prophylaxis; SCDs/systemic anticoagulation CODE STATUS; DO NOT RESUSCITATE Plan: Patient is off pressor support. Continue with antibiotics in the form of ceftriaxone for MSSA bacteremia and Citrobacter UTI. Patient's patient was started on Lasix and Aldactone. Continue with current medications and follow-up closely. Continue with home medications. prognosis is guraded. Time with Patient: Greater than 30
[2020-06-06] MEDS: MIDODRINE 5 MG TAB PO SCH ×3 (07:50→15:45)
[2020-06-06] MEDS: SODIUM BICARBONATE TAB 650 MG TAB PO SCH ×3 (07:51→20:21)
[2020-06-06] MEDS: APIXABAN 2.5 MG TABLET PO SCH (07:51)
[2020-06-06] MEDS: TORSEMIDE 20 MG TAB PO SCH ×2 (07:51→20:21)
[2020-06-06] MEDS: ATORVASTATIN 40 MG TAB PO SCH (07:52)
[2020-06-06] MEDS: SPIRONOLACTONE 25 MG TAB PO SCH ×2 (07:52→20:21)
[2020-06-06] MEDS: LEVOTHYROXINE 88 MCG TAB PO SCH (07:52)
[2020-06-06] MEDS: ASPIRIN 325 MG TAB PO SCH (07:52)
[2020-06-06 07:55] LABS: INR 1.2 (<1.2); Partial Thromboplastin Time 28.3 sec (22.0-30.0); Prothrombin Time 11.9 sec (9.0-12.0)
--- NOTE | 2020-06-06 08:59 | P.PN ---
Subjective Patient is seen in follow-up for hyponatremia. Status post 3% saline on June 03. He is also maintained on spironolactone, torsemide as well as sodium chloride tablets. Sodium level 131 as of yesterday. He is off all vasopressors. No chest pain or shortness of breath. Oral intake is poor. Edema little better. Nonoliguric. Vital signs: Blood pressure on the lower side. General: The patient appeared well nourished and normally developed. HEENT: Head exam is unremarkable. Neck is without jugular venous distension. LUNGS: Breath sounds decreased. HEART: Rate and Rhythm are regular. ABDOMEN: Soft, nontender. EXTREMITITES: 2+ edema. Objective - Vital Signs Vital signs: Vital Signs Temp 97.7 F 06/06/20 07:00 Pulse 96 06/06/20 07:00 Resp 20 06/06/20 07:00 BP 95/59 06/06/20 07:00 Pulse Ox 94 L 06/06/20 07:00 Intake & Output 06/05/20 06/06/20 06/06/20 18:59 06:59 18:59 Intake Total 550 Output Total 1700 Balance -1700 550 Weight 86.2 kg Intake: Intake, IV Titration 100 Amount Sodium Chloride 0.9% 1, 100 000 ml @ 20 mls/hr IV . Q24H [facility] Rx#:[id number] Oral 200 Tube Feeding 250 Output: Urine 1700 Other: Voiding Method Indwelling Catheter Indwelling Catheter # Voids 0 - Labs CBC & Chem 7: 06/05/20 10:15 06/05/20 10:15 Labs: Abnormal Lab Results - Last 24 Hours (Table) 06/05/20 06/05/20 06/06/20 Range/Units 10:15 10:15 06:23 RBC 3.19 L (4.30-5.90) m/uL Hgb 10.4 L (13.0-17.5) gm/dL Hct 31.2 L (39.0-53.0) % Plt Count 127 L (150-450) k/uL INR 1.2 H (<1.2) Sodium 131 L (135-145) mmol/L Carbon Dioxide 16.1 L (21.6-31.8) mmol/L BUN 62.0 H (9.0-27.0) mg/dL Est GFR (CKD-EPI)AfAm 56.1 L (60.0-200.0) Est GFR (CKD-EPI)NonAf 48.4 L (60.0-200.0) BUN/Creatinine Ratio 47.69 H (12.00-20.00) Ratio Glucose 171 H (70-110) mg/dL Calcium 7.9 L (8.7-10.3) mg/dL Total Bilirubin 1.6 H (0.3-1.2) mg/dL AST 89 H (14-35) U/L ALT 98 H (10-49) U/L Alkaline Phosphatase 251 H (41-126) U/L Total Protein 4.5 L (6.2-8.2) g/dL Albumin 2.80 L (3.80-4.90) g/dL Microbiology - Last 24 Hours (Table) 06/01/20 12:08 Blood Culture - Preliminary Blood No Growth after 96 hours 06/04/20 09:40 Blood Culture - Preliminary Blood No Growth after 24 hours 06/04/20 09:25 Blood Culture - Preliminary Blood No Growth after 24 hours Assessment and Plan Plan: Assessment: 1. Hyponatremia status post 3% saline. Currently hypervolemic. Sodium level 131 as of yesterday. Cortisol level normal. Urine sodium noted to be less than 10 yesterday despite being on sodium chloride tablets. Low urine sodium can also be seen with hepatorenal and cardiorenal syndrome. 2. Staph aureus bacteremia and Citrobacter UTI maintained on antibiotics. 3. Volume overload. Improving with diuresis. 4. MARK ANTHONY mostly prerenal improved with IV hydration. Creatinine 1.3 as of yesterday. This is related to diuretics. 5. History of nonalcoholic liver cirrhosis requiring paracentesis. 6. Metabolic acidosis, non-gap, due to compensation for underlying respiratory alkalosis. Maintained on oral bicarbonate. Plan: Maintain midodrine 10 mg 3 times daily. Maintain Aldactone. Maintain Demadex 20 mg twice daily. Discontinue sodium chloride tablets due to edema. Patient was considering going home on hospice but this seems to be on hold currently. May require paracentesis prior to discharge. I will give him 25 g of albumin pre-and post-paracentesis. Morning labs pending.
[2020-06-06] MEDS ORDERED: SODIUM CHLORIDE TAB 1 GM TAB PO SCH (09:00)
[2020-06-06] MEDS: IPRATROPIUM-ALBUTEROL 3 ML NEB INHALATION SCH ×4 (09:20→21:28)
--- NOTE | 2020-06-06 10:24 | US ---
EXAMINATION TYPE: US abdomen limited DATE OF EXAM: 06/06/2020 COMPARISON: US CLINICAL HISTORY: assess for fluid pocket please. Assess for ascites Moderate amount of ascites IMPRESSION: Moderate ascites.
[2020-06-06 10:48] LABS: African American GFR (CKD) 51.3 (60.0-200.0); BUN/Creat Ratio 47.86 Ratio (12.00-20.00); Calcium 8.5 mg/dL (8.7-10.3); Magnesium 1.8 mg/dL (1.5-2.4); Non-African American GFR(CKD) 44.2 (60.0-200.0); Potassium 4.3 mmol/L (3.5-5.5)
[2020-06-06] MEDS: ALBUMIN HUMAN 25% 50 ML in EMPTY BAG 1 BAG IVPB SCH ×2 (13:48→15:44)
[2020-06-06] MEDS: ACETAMINOPHEN TAB 325 MG TAB PO PRN (15:46)
--- NOTE | 2020-06-06 17:53 | US ---
EXAMINATION TYPE: US paracentesis abd w/image DATE OF EXAM: 06/06/2020 COMPARISON: NONE HISTORY: Ascites. PROCEDURE: Maximal barrier technique was utilized. The skin overlying a suitable pocket of fluid was localized with ultrasound and the overlying skin was prepped and draped. Ultrasound was utilized with sterile technique. Lidocaine was used for local anesthesia and a skin nathan made with a scalpel. Catheter was advanced under direct ultrasound guidance into a suitable pocket of fluid and approximately 4 liters of serosanguineous fluid were removed. Catheter was withdrawn and hemostasis achieved. There is no immediate complication; the patient is discharged in stable condition. IMPRESSION: STATUS POST ULTRASOUND GUIDED PARACENTESIS FOR PALLIATION OF ASCITES. THIS PROCEDURE WA S PERFORMED BY THE UNDERSIGNED.
[2020-06-06] MEDS: hydrOXYzine HCL 25 MG TAB PO SCH (20:21)
[2020-06-06] MEDS: SODIUM CHLORIDE 0.9% 1,000 ML IV SCH (20:22)
[2020-06-07 02:22] VITALS: TEMP 97.5
[2020-06-07] MEDS: SPIRONOLACTONE 25 MG TAB PO SCH (07:26)
[2020-06-07] MEDS: SODIUM BICARBONATE TAB 650 MG TAB PO SCH (07:26)
[2020-06-07] MEDS: APIXABAN 2.5 MG TABLET PO SCH (07:26)
[2020-06-07] MEDS: TORSEMIDE 20 MG TAB PO SCH (07:26)
[2020-06-07] MEDS: ATORVASTATIN 40 MG TAB PO SCH (07:26)
[2020-06-07] MEDS: LEVOTHYROXINE 88 MCG TAB PO SCH (07:26)
[2020-06-07] MEDS: ASPIRIN 325 MG TAB PO SCH (07:26)
[2020-06-07] MEDS: MIDODRINE 5 MG TAB PO SCH ×2 (07:27→11:30)
[2020-06-07] MEDS: IPRATROPIUM-ALBUTEROL 3 ML NEB INHALATION SCH ×2 (07:44→11:52)
[2020-06-07 09:18] VITALS: BP 86/48; PULSE 71; RESP 20
--- NOTE | 2020-06-07 11:00 | P.PN ---
Subjective Patient is seen in follow-up for hyponatremia. Status post 3% saline on June 03. He is also maintained on spironolactone, torsemide as well as sodium chloride tablet. Sodium level 132 as of yesterday. He is off all vasopressors. No chest pain or shortness of breath. Oral intake is poor. Edema little better. Nonoliguric. Vital signs: Blood pressure on the lower side. General: The patient appeared well nourished and normally developed. HEENT: Head exam is unremarkable. Neck is without jugular venous distension. LUNGS: Breath sounds decreased. HEART: Rate and Rhythm are regular. ABDOMEN: Soft, nontender. EXTREMITITES: 2+ edema. Objective - Vital Signs Vital signs: Vital Signs Temp 97.5 F L 06/07/20 07:00 Pulse 72 06/07/20 07:53 Resp 20 06/07/20 07:00 BP 86/48 06/07/20 07:00 Pulse Ox 95 06/07/20 07:00 Intake & Output 06/06/20 06/07/20 06/07/20 18:59 06:59 18:59 Intake Total 160 410 160 Output Total 800 350 Balance -640 60 160 Intake: IV 160 60 160 Sodium Chloride 0.9% 1, 160 60 160 000 ml @ 20 mls/hr IV . Q24H [facility] Rx#:[id number] Oral 100 Tube Feeding 250 Output: Urine 800 350 Uretheral (Encinas) 800 Other: Voiding Method Indwelling Catheter Indwelling Catheter Indwelling Catheter - Labs CBC & Chem 7: 06/05/20 10:15 06/06/20 06:23 Labs: Microbiology - Last 24 Hours (Table) 06/01/20 12:08 Blood Culture - Preliminary Blood No Growth after 120 hours 06/04/20 09:40 Blood Culture - Preliminary Blood No Growth after 48 hours 06/04/20 09:25 Blood Culture - Preliminary Blood No Growth after 48 hours Assessment and Plan Plan: Assessment: 1. Hyponatremia status post 3% saline. Currently hypervolemic. Sodium level 132 as of yesterday. Cortisol level normal. Urine sodium noted to be less than 10 yesterday despite being on sodium chloride tablets. Low urine sodium can also be seen with hepatorenal and cardiorenal syndrome. 2. Staph aureus bacteremia and Citrobacter UTI maintained on antibiotics. 3. Volume overload. Improving with diuresis. 4. MARK ANTHONY mostly prerenal improved with IV hydration. Creatinine 1.4 as of yesterday. This is related to diuretics. 5. History of nonalcoholic liver cirrhosis requiring paracentesis. Underwent paracentesis June 06 at 4 L drained. He did receive albumin pre-and post procedure. 6. Metabolic acidosis, non-gap, due to compensation for underlying respiratory alkalosis. Maintained on oral bicarbonate. Plan: Maintain midodrine 10 mg 3 times daily. Maintain Aldactone. Maintain Demadex 20 mg twice daily. Off sodium chloride tablets as of June 06. Patient was considering going home on hospice but this seems to be on hold currently. Increase dose of bicarb. Repeat BMP and magnesium level 2-3 days post discharge. Follow up outpatient in 1 week. Overall prognosis guarded.
[2020-06-07 11:17] LABS: African American GFR (CKD) 47.2 (60.0-200.0); Anion Gap 13.5 mmol/L (4.00-12.00); Calcium 7.9 mg/dL (8.7-10.3); Carbon Dioxide 13.5 mmol/L (21.6-31.8); Magnesium 1.8 mg/dL (1.5-2.4); Non-African American GFR(CKD) 40.7 (60.0-200.0)
--- NOTE | 2020-06-07 12:58 | P.PN ---
Subjective Progress Note Date: 06/06/20 acute hypoxic respiratory failure; multifactorial 06/01/2020 patient seen in follow-up in the intensive care unit, he is resting comfortably in bed. He is to be in no acute distress, he remains on supplemental oxygen, 4 L/m with a pulse ox of 94-96%, did have a fever with a T-max of 100.5F last night. Remains on 3% hypertonic saline at a rate of 35 ML per hour, nephrology is managing, today's sodium is 124, B1 is 54, creatinine 0.95. White count was up to 15.6 on yesterday's evening labs, and down to 11.9, yesterday we added Rocephin empirically with the suspicion of sepsis. Overnight his blood culture was positive for gram-positive cocci, 10 report is pending, urinalysis came back indicating presence of urinary tract infection, urinary culture is pending, pro- calcitonin level elevated at 1.11. This morning's chest x-ray showing continued focal atelectasis at the left base. patient denies any cough or congestion, his COVID 19 PCR is still pending at this time. Overnight patient also required Levothroid; remains on Florinef. 06/02/2020 Patient is seen and evaluated in follow-up in the intensive care unit. He is currently resting fairly comfortably in bed. Awake and alert in no acute distress. He is on 4 L/m per nasal cannula to maintain O2 saturation in the 90s. He has a 0.9 normal saline at KVO. His sodium is improved to 125. He is still requiring a small amount of norepinephrine currently at 6.24 mcg/m. Urine is growing gram-negative bacilli. Blood is showing staph aureus. Currently on vancomycin and ceftriaxone. Chest x-ray continues to show a nodular density in the right lung base. Retrocardiac density is seen as well. No significant change. White count 8.8. Hemoglobin 11.7. Platelet count 147. Sodium 125. Potassium 3.5. Bicarb 17. Creatinine 0.95. Cortisol level 21. Patient is being managed by critical care and vancomycin has been discontinued; patient remains on IV Rocephin; plan is to wean down norepinephrine along with a full dose of 1 L normal saline and hydrocortisone 100 mg IV piggyback 06/03/2020 Patient is seen and evaluated in follow-up in the intensive care unit. He is currently resting comfortably in bed. Awake and alert in no acute distress. He is currently on 3 L/m per nasal cannula. Still requiring norepinephrine at 3.8 mg/m. Cultures were positive for MSSA in the blood. Citrobacter freundii in the urine. He is currently on ceftriaxone. White count 8.7. Hemoglobin 10.9. Platelet count 121,000. Sodium 125. Potassium 4.1. Creatinine 0.91. AST 80. ALT 72. He remains on sodium bicarb tablets. 0.9 normal saline at 100 ML's per hour. Chest x-ray continues to show nodular density in the right lung base as well as left lower lobe infiltrate/atelectasis. Stable compared to previous. Plan is to continue to wean down norepinephrine as tolerated 06 04 2020 Patient is currently in the MICU. Patient was admitted to the hospital with hyponatremia shortness of breath and fever. Patient had MSSA bacteremia and serum sodium level was 120. Patient was given tolvaptan and hypertonic saline with improvement of sodium level. Patient was also hypotensive and was on pressor support. Currently off pressors. Sodium level is 130 today. Bicarb level is 16 and potassium 3.8. Continued on Lasix and Aldactone. Patient has been afebrile. Patient remains in atrial fibrillation. Anticoagulated with Eliquis. Nephrology and pulmonary is on board. Patient is being transferred to medical floor today. Prognosis guarded at this time. 06/05/2020 Patient is more awake and oriented today. No complaints of chest pain or worsening shortness of breath. Still on oxygen at 4 L via nasal cannula. Curr ently being continued on torsemide and spironolactone. Blood pressure is low with SBP in 90s. Denied any dizziness or lightheadedness. Continued on antibiotics in the form of ceftriaxone for MSSA bacteremia. Repeat blood cultures have been negative so far. No nausea vomiting or diarrhea. Tolerating oral diet. Abdomen is distended again. Ultrasound-guided paracentesis will be ordered and family wants him to return home with home visiting nurse. CODE STATUS is DNR/DNI. Nephrology and pulmonary is on board. Current medications reviewed. 06/06/2020 Patient underwent paracentesis with approximately 4 L removed. Patient was set to be discharged although continued to be on 4 L of oxygen and blood pressure was lower than normal. Patient was receiving 2 bags of albumin status post paracentesis. Patient is maintained on antibiotics and will continue at this time. Discussed with the family about treatment plan and the plan is for the family to bring the patient home and remain in no code. Family will discuss further about hospice or comfort care in the future. Patient currently denies any chest pain, worsening shortness of breath, or palpitations. Patient is afebrile. No reports of nausea or vomiting and patient is tolerating diet. Patient states abdominal distention feels much better. Continue to monitor closely. With anticipation of discharge tomorrow. Objective - Vital Signs Vital signs: Vital Signs Temp 97.5 F L 06/07/20 07:00 Pulse 72 06/07/20 07:53 Resp 20 06/07/20 07:00 BP 86/48 06/07/20 07:00 Pulse Ox 95 06/07/20 07:00 Intake & Output 06/06/20 06/07/20 06/07/20 18:59 06:59 18:59 Intake Total 160 410 160 Output Total 800 350 Balance -640 60 160 Intake: IV 160 60 160 Sodium Chloride 0.9% 1, 160 60 160 000 ml @ 20 mls/hr IV . Q24H [facility] Rx#:[id number] Oral 100 Tube Feeding 250 Output: Urine 800 350 Uretheral (Encinas) 800 Other: Voiding Method Indwelling Catheter Indwelling Catheter Indwelling Catheter # Bowel Movements 1 - Exam GENERAL EXAM: Alert, 89-year-old frail looking white male, chronically ill- looking, 4 L of oxygen, pulse ox 92%, resting in bed. comfortable in no apparent distress. Status post paracentesis HEAD: Normocephalic/atraumatic. EYES: Normal reaction of pupils, equal size. Conjunctiva pink, sclera white. NOSE: Clear with pink turbinates. THROAT: No erythema or exudates. NECK: No masses, no JVD, no thyroid enlargement, no adenopathy. CHEST: No chest wall deformity. Symmetrical expansion. Bibasilar diminished air entry. LUNGS: Equal air entry with no crackles, wheeze, rhonchi or dullness. CVS: Irregular rate and rhythm, normal S1 and S2, no gallops, no murmurs, no rubs ABDOMEN: Soft, nontender. No hepatosplenomegaly, normal bowel sounds, no guarding or rigidity. EXTREMITIES: No clubbing, no edema, no cyanosis, 2+ pulses and upper and lower extremities. - Labs CBC & Chem 7: 06/05/20 10:15 06/07/20 06:49 Labs: Abnormal Lab Results - Last 24 Hours (Table) 06/07/20 Range/Units 06:49 Sodium 131 L (135-145) mmol/L Carbon Dioxide 13.5 L (21.6-31.8) mmol/L Anion Gap 13.50 H (4.00-12.00) mmol/L BUN 72.0 H (9.0-27.0) mg/dL Est GFR (CKD-EPI)AfAm 47.2 L (60.0-200.0) Est GFR (CKD-EPI)NonAf 40.7 L (60.0-200.0) BUN/Creatinine Ratio 48.00 H (12.00-20.00) Ratio Glucose 122 H (70-110) mg/dL Calcium 7.9 L (8.7-10.3) mg/dL Microbiology - Last 24 Hours (Table) 06/04/20 09:40 Blood Culture - Preliminary Blood No Growth after 72 hours 06/04/20 09:25 Blood Culture - Preliminary Blood No Growth after 72 hours 06/01/20 12:08 Blood Culture - Preliminary Blood No Growth after 120 hours Assessment and Plan Assessment: - Acute hypoxic respiratory failure; multifactorial - Acute exacerbation diastolic CHF - Left lower lobe pneumonia/possible parapneumonic effusion/sepsis - Possible Covid 19 vital infection. PCR negative - MSSA Bacteremia - Septic shock likely due to Citrobacter UTI and MSSA bacteremia. Currently off pressors. -Acute Non-ST elevation SC -Hypovolemic hyponatremia; improved -Chronic atrial fibrillation; remains rate controlled; continue with anti coagulation therapy with eliquis. -Hypothyroidism; continue with home dose of levothyroxine -Nonalcoholic liver cirrhosis, with recurrent ascites, requiring paracentesis -Valvular heart disease, with moderately severe mitral regurgitation, severe tricuspid regurgitation, and pulmonary hypertension with right-sided pressures 51 mmHg -DVT prophylaxis; SCDs/systemic anticoagulation -CODE STATUS; DO NOT RESUSCITATE Plan: Continue current medications, management, and symptomatic treatment. Patient currently remains on antibiotics which will likely transition to oral antibiotics upon discharge. Patient to continue on Aldactone along with Midodrin and nephrology following. Patient is status post paracentesis with approximately 4 L of removal. Will continue to monitor vital signs and labs cl osely with anticipation of discharge to family and home tomorrow. Further recommendations to follow. Guarded prognosis. Possible discharge in 24 hours.
--- NOTE | 2020-06-07 13:11 | P.DS ---
Providers Date of admission: 05/25/20 02:05 Expected date of discharge: 06/07/20 Attending physician: Breonna Zapien Consults: 05/25/20 01:58 Consult Physician Routine Consulting Provider: Virgil Hanna Consult Reason/Comments: chest pain Do you want consulting provider notified?: Yes 05/25/20 08:10 Consult Physician Urgent Consulting Provider: Jewel Molina Consult Reason/Comments: hyponatremia Do you want consulting provider notified?: Yes 05/31/20 03:47 Consult Physician Routine Consulting Provider: Tres Acsota Consult Reason/Comments: ICU management Do you want consulting provider notified?: Already Contacted Primary care physician: Angie Palomares [facility] Course: Final diagnosis - Acute hypoxic respiratory failure; multifactorial - Acute exacerbation diastolic CHF - Left lower lobe pneumonia/possible parapneumonic effusion/sepsis - Possible Covid 19 vital infection. PCR negative - MSSA Bacteremia - Septic shock likely due to Citrobacter UTI and MSSA bacteremia. Currently off pressors. -Acute Non-ST elevation CT -Hypovolemic hyponatremia; improved -Chronic atrial fibrillation; remains rate controlled; continue with anticoagulation therapy with eliquis. -Hypothyroidism; continue with home dose of levothyroxine -Nonalcoholic liver cirrhosis, with recurrent ascites, requiring paracentesis -Valvular heart disease, with moderately severe mitral regurgitation, severe tricuspid regurgitation, and pulmonary hypertension with right-sided pressures 51 mmHg -DVT prophylaxis; SCDs/systemic anticoagulation -CODE STATUS; DO NOT RESUSCITATE Discharge disposition Patient is being discharged in a stable condition with guarded prognosis to home. Patient will follow-up with Dr. Palomares in the outpatient setting upon discharge. Patient will continue with visiting nurses home care and also instructed to follow-up with nephrology in the outpatient setting in 1-2 weeks. Patient will need repeat labs to monitor electrolytes. Patient will also co ntinue on a short course of oral antibiotics in the form of Cipro 500 mg twice daily for the next one week to complete the course. Total time taken is greater than 35 minutes. History of present illness This is a 89-year-old male who was recently admitted with acute hypoxic respiratory failure multifactorial and was being closely monitored. Patient was also found to be hyponatremic, fever, and increased shortness of breath. Patient was also found to have MSSA bacteremia. Patient was briefly in the MICU for close monitoring. Treatment plan was discussed with family with the possibility of an ECF for rehab or possible comfort care although family is against that at this point and would like the patient to return home upon discharge. Patient underwent paracentesis with approximately 4 L removed yesterday and feeling much better. Patient will be going home today with continued home care in the outpatient setting. Patient's bacteremia has cleared although a urinary tract infection was also present and will continue with oral antibiotics in the form of Cipro 500 mg for the next one week to complete the course. Patient instructed to follow-up with primary care provider along with nephrology in the outpatient setting and have repeat electrolytes and magnesium drawn to monitor closely. Prognosis is poor and guarded. Patient will be discharged home today. Currently no reports of chest pain, shortness of breath, or palpitations. Patient is afebrile. No reports of nausea or vomiting and patient is tolerating diet. On exam vital signs are stable. Temp is 97.5F, pulse is 71, respirations are 20, blood pressure is 86/48, oxygen saturation is 95% on room air. Cardio S1, S2 are muffled. Respiratory system shows diminished breath sounds at the bases with no wheezing or rhonchi noted. Abdomen is soft and nontender. Nervous system shows diffuse weakness. Please refer to medication reconciliation sheet for a list of medications. Patient Condition at Discharge: Fair Plan - Discharge Summary Discharge Rx Participant: No New Discharge Prescriptions: New Aspirin 325 mg PO DAILY 30 Days #30 tab Ciprofloxacin HCl [Cipro] 500 mg PO BID 7 Days #14 tab Torsemide [Demadex] 20 mg PO BID 30 Days #60 tab Nitroglycerin Sl Tabs [Nitrostat] 0.4 mg SUBLINGUAL Q5M PRN #30 tab PRN Reason: Chest Pain Continue Atorvastatin [Lipitor] 40 mg PO DAILY@0800 Levothyroxine Sodium [Synthroid] 175 mcg PO DAILY@0800 Sodium Bicarbonate Tab 650 mg PO BID@0800,2100 Apixaban [Eliquis] 2.5 mg PO DAILY@0800 Midodrine [ProAmatine] 10 mg PO TID@0800,1200,1600 Spironolactone [Aldactone] 25 mg PO BID@0800,2100 hydrOXYzine pamoate [hydrOXYzine PAMOATE] 12.5 mg PO HS Discontinued Furosemide [Lasix] 40 mg PO DAILY@1600 Discharge Medication List Atorvastatin [Lipitor] 40 mg PO DAILY@0800 05/30/19 [History] Levothyroxine Sodium [Synthroid] 175 mcg PO DAILY@0800 06/02/19 [History] Apixaban [Eliquis] 2.5 mg PO DAILY@0800 12/05/19 [History] Sodium Bicarbonate Tab 650 mg PO BID@0800,2100 12/05/19 [History] Midodrine [ProAmatine] 10 mg PO TID@0800,1200,1600 05/15/20 [History] Spironolactone [Aldactone] 25 mg PO BID@0800,2100 05/15/20 [History] hydrOXYzine pamoate [hydrOXYzine PAMOATE] 12.5 mg PO HS 05/25/20 [History] Aspirin 325 mg PO DAILY 30 Days #30 tab 06/06/20 [Rx] Ciprofloxacin HCl [Cipro] 500 mg PO BID 7 Days #14 tab 06/06/20 [Rx] Nitroglycerin Sl Tabs [Nitrostat] 0.4 mg SUBLINGUAL Q5M PRN #30 tab 06/06/20 [Rx] Torsemide [Demadex] 20 mg PO BID 30 Days #60 tab 06/06/20 [Rx] Follow up Appointment(s)/Referral(s): [facility],Equipment [NON-STAFF] - (Please call [facility] if you have questions regarding hospital bed. ) Angie Palomares MD [Primary Care Provider] - 06/08/20 12:20 pm Jewel Molina DO [STAFF PHYSICIAN] - 1 Week [facility] Visiting Nurse, [NON-STAFF] - Ambulatory/Diagnostic Orders: Basic Metabolic Panel [LAB.AMB] Time Frame: 3 Days, Location: None Selected Magnesium [LAB.AMB] Time Frame: 3 Days, Location: None Selected Patient Instructions/Handouts: Encinas Catheter Placement and Care (DC), Paracentesis (DC), Acute Respiratory Failure (GEN) Activity/Diet/Wound Care/Special Instructions: Patient requires a hospital bed to alleviate dyspnea secondary to Congestive Heart Failure and requires the head of the bed to be >30 degrees at all times. Home meds sent back home with patient (midodrine) Activity Limited until follow-up Continue current diet Continue antibiotics until finished follow up with primary care provider upon discharge Discharge Disposition: HOME WITH HOME HEALTH SERVICES
[2020-06-07] MEDS ORDERED: SODIUM BICARB 8.4% 50 ML SYR (1 MEQ/ML) IV STA (13:18)
[2020-06-07 13:39] LABS: ABG Base Excess -12.2 mmol/L; ABG HCO3 14 mmol/L (21-25); ABG PCO2 26 mmHg (35-45); ABG PH 7.34 (7.35-7.45); ABG PO2 83 mmHg (83-108); ABG TCO2 14 mmol/L (19-24); Allen Test Performed? Yes
[2020-06-07] MEDS ORDERED: SODIUM BICARBONATE TAB 650 MG TAB PO SCH (21:00)
--- NOTE | 2020-06-11 12:33 | CDI ---
Documentation Clarification Form Date: 06/11/20 From: Perri Redman Phone: If you have a question about this query, please contact Vernell Rocha, Manager Pricing at [phone] between 8am and 5pm. Admit Date: 05/25/20 Discharge Date: 06/07/20 Patient Name: DESTINEE MATHEWS Visit Number: [id number] ATTENTION: The Clinical Documentation Specialists (CDI) and [facility] Coding Staff appreciate your assistance in clarifying documentation. Please respond to the clarification below the line at the bottom and electronically sign. The CDI & [facility] Coding staff will review the response and follow-up if needed. Please note: Queries are made part of the Legal Health Record. If you have any questions, please contact the author of this message via ITS. Dear Dr. Jen Maldonado, Reminder per the CDC A negative result does not rule out COVID-19 and should not be used as the sole basis for treatment or patient management decisions. The COVID-19 test obtained on 05/31/20 was reported as Negative on chart as of 06/11/20. Per case summary: per DS possible COVID 19 viral infection, PCR negative. Patient history/risk factors: HTN w acute on chronic diastolic CHF and CKD stage II, pneumonia, sepsis & septic shock, secondary pulmonary HTN, neurogenic bladder, hx smoking. Clinical Indicators: Acute hypoxic respiratory failure related to acute exacerbation of diastolic CHF, and possibility of left lower lobe pneumonia with a possible pparapneumonic effusion is not completely excluded, consider COVID 19 pneumonia. Patient reported chest pain and mild SOB on 05/31. CXR: 05/25/20-Question subtle airspace opacities within the central lungs and lower lungs which may represent early pulmonary vascular congestion versus an infectious process. VS in ED Triage: T-98, P-73, R-18, Sat-96% on room air WBC-05/31: 15.6 Treatment: Pulmonary consult states #1.Acute hypoxic respiratory failure related to acute exacerbation of diastolic CHF, and possibility of left lower lobe pneumonia with a possible parapneumonic effusion is not completely excluded, consider COVID 19 pneumonia, with 19 PCR is pending at this time Zithromax, Plaquenil In order to capture the severity of condition, please clarify the COVID-19 status: False negative, treating for COVID-19 infection COVID-19 ruled out Other, please specify False negative, treating for COVID-19 infection MTDD
--- NOTE | 2020-06-12 12:42 | CDI ---
Documentation Clarification Form Date: 06/12/2020 10:32:41 AM From: Cassy Perla RN CCDS Admit Date: 05/25/2020 02:05:00 AM Patient Name: Shahzad Sanchez Visit Number: [id number] Discharge Date: 06/07/2020 02:38:00 PM ATTENTION: The Clinical Documentation Specialists (CDI) and [facility] Coding Staff appreciate your assistance in clarifying documentation. Please respond to the clarification below the line at the bottom and electronically sign. The CDI & [facility] Coding staff will review the response and follow-up if needed. Please note: Queries are made part of the Legal Health Record. If you have any questions, please contact the author of this message via ITS. Dr. Peggy Maldonado Acute Non ST elevation TX is documented in the DCS 06/07 Patient History/Risk Factors: 89-year-old male presents to the ED with chest pain for 1-2 days. Medical History: Atrial Fibrillation; CAD; Heart Failure; TX; Clinical Indicators: 05/25 Troponin: 0.917; 0.818 - 05/26: 0.521 05/25 EKG Results: Atrial fibrillation. Incomplete right bundle branch block. Right ventricular hypertrophy. Inferior infarct, age undetermined. Anterolateral infarct, age undetermined. 05/25 Echo: Severe concentric left ventricular hypertrophy. Overall left ventricular systolic function is low normal with, an EF between 50-55%. Bun Labs: 05/25: 119; 110; 100; 88; Creatinine Lab 05/25: 1.02; 0.90; 0.89; 0.73; ECHO 05/25: Left ventricular systolic function is low normal with, an EF between 50-55% Increased LAP Grade 2 Diastolic Dysfunction. 05/25 Cardiology consult: Elevated troponin, possibly related to the intravascular volume depletion and renal failure. 05/25 Nephrology Consult: Hyponatremia. Patient appears somewhat hypovolemic which is from spironolactone and Lasix which she was taking outpatient. Sodium level 120 on admission. Treatment: 05/25 Nitrostat, Midodrine. Imdur, 05/26 Aspirin, 05/21 Lasix iv x2; 05/26Sodium Bicarb, sodium Chloride tabs, Consult: Cardiology see above For accurate documentation please further clarify the TX: Acute Type 2 TX related to volume depletion and renal failure. Acute Type 2 TX related to (please specify) Acute Type 1 TX Unable to determine Other Condition, please specify (Last Revision: July 2019) Acute Type 2 TX related to volume depletion and renal failure. MTDD
== END 2020-06-07 14:38 | disposition home health service (06) | DRG 640 ==
LOC: EC 00:28 → 3SCARD 02:05 → 2SICU 05-30 23:19 → 4SSUR 06-04 15:53
PROVIDERS: ADMIT Hospitalist; ATTEND Hospitalist
PROC: 3E033XZ Introduction of Vasopressor into Peripheral Vein, Percutaneous Approach (ICD-10-PCS; 2020-05-31)
PROC: 02HV33Z Insertion of Infusion Device into Superior Vena Cava, Percutaneous Approach (ICD-10-PCS; principal; 2020-06-02)
PROC: 0W9G3ZZ Drainage of Peritoneal Cavity, Percutaneous Approach (ICD-10-PCS; 2020-06-06)
DX: E87.1 Hypo-osmolality and hyponatremia (principal); U07.1 COVID-19; J96.01 Acute respiratory failure with hypoxia; A41.01 Sepsis due to Methicillin susceptible Staphylococcus aureus; A41.4 Sepsis due to anaerobes; R65.21 Severe sepsis with septic shock; I50.33 Acute on chronic diastolic (congestive) heart failure; I21.A1 Myocardial infarction type 2; J12.89 Other viral pneumonia; I13.0 Hypertensive heart and chronic kidney disease with heart failure and stage 1 through stage 4 chronic kidney disease, or unspecified chronic kidney disease; N17.9 Acute kidney failure, unspecified; R18.8 Other ascites; I48.19 Other persistent atrial fibrillation; N39.0 Urinary tract infection, site not specified; E87.4 Mixed disorder of acid-base balance; L89.152 Pressure ulcer of sacral region, stage 2; D71 Functional disorders of polymorphonuclear neutrophils; I27.29 Other secondary pulmonary hypertension; K74.60 Unspecified cirrhosis of liver; I95.89 Other hypotension; E86.1 Hypovolemia; Z66 Do not resuscitate; E87.5 Hyperkalemia; N18.2 Chronic kidney disease, stage 2 (mild); I08.1 Rheumatic disorders of both mitral and tricuspid valves; Z94.7 Corneal transplant status; J98.4 Other disorders of lung; G89.29 Other chronic pain; M54.9 Dorsalgia, unspecified; N40.1 Benign prostatic hyperplasia with lower urinary tract symptoms; R33.8 Other retention of urine; N31.9 Neuromuscular dysfunction of bladder, unspecified; E03.9 Hypothyroidism, unspecified; E78.5 Hyperlipidemia, unspecified; I25.10 Atherosclerotic heart disease of native coronary artery without angina pectoris; I25.2 Old myocardial infarction; M19.90 Unspecified osteoarthritis, unspecified site; H91.90 Unspecified hearing loss, unspecified ear; T50.2X5A Adverse effect of carbonic-anhydrase inhibitors, benzothiadiazides and other diuretics, initial encounter; Z79.01 Long term (current) use of anticoagulants; Z79.890 Hormone replacement therapy; Z79.899 Other long term (current) drug therapy; Z87.19 Personal history of other diseases of the digestive system; Z96.652 Presence of left artificial knee joint; Z87.39 Personal history of other diseases of the musculoskeletal system and connective tissue; Z90.79 Acquired absence of other genital organ(s); Z86.69 Personal history of other diseases of the nervous system and sense organs; Z97.4 Presence of external hearing-aid; Z98.890 Other specified postprocedural states; Z86.010 Personal history of colon polyps; Z87.891 Personal history of nicotine dependence; Z88.8 Allergy status to other drugs, medicaments and biological substances; Z80.0 Family history of malignant neoplasm of digestive organs; Z80.8 Family history of malignant neoplasm of other organs or systems
CPT/HCPCS: 36415; 36600; 49083; 71045; 71046; 76705; 80048; 80053; 80061; 81001; 82272; 82533; 82805; 83605; 83735; 83880; 83930; 83935; 84132; 84145; 84295; 84300; 84443; 84484; 85025; 85027; 85610; 85730; 87040; 87077; 87086; 87186; 87324; 93005; 93306; 94640; 99285

== ENCOUNTER 2020-06-08 14:26 | Inpatient (IN) | payer MEDICARE ==
[2020-06-08] MEDS ORDERED: IPRATROPIUM 0.5 MG/2.5 ML NEBU INHALATION STA (14:42)
[2020-06-08] MEDS ORDERED: ALBUTEROL NEBULIZED 2.5 MG/3 ML INHALATION STA (14:42)
--- NOTE | 2020-06-08 15:29 | ED ---
General Adult HPI - General Chief complaint: Shortness of Breath Stated complaint: CASSIA Time Seen by Provider: 06/08/20 14:30 Source: patient, EMS, RN notes reviewed, old records reviewed Mode of arrival: EMS Limitations: no limitations - History of Present Illness Initial comments: This is a 89-year-old male who presents emergency Department with the complaint per EMS of shortness of breath. No family members with the patient patient himself does not know why is here. Patient was just released from the hospital recently for respiratory distress patient has a history of cirrhosis and ascites. Patient also said a history of an ND atrial fibrillation. Patient according to EMS as a DO NOT RESUSCITATE. At this point time I have no further history. - Related Data Home Medications Medication Instructions Recorded Confirmed Atorvastatin [Lipitor] 40 mg PO DAILY@0800 05/30/19 06/08/20 Levothyroxine Sodium [Synthroid] 175 mcg PO DAILY@0800 06/02/19 06/08/20 Apixaban [Eliquis] 2.5 mg PO DAILY@0800 12/05/19 06/08/20 Sodium Bicarbonate Tab 650 mg PO BID@0800,2100 12/05/19 06/08/20 Midodrine [ProAmatine] 10 mg PO TID@0800,1200,1600 05/15/20 06/08/20 Spironolactone [Aldactone] 25 mg PO BID@0800,2100 05/15/20 06/08/20 hydrOXYzine pamoate [hydrOXYzine 12.5 mg PO HS 05/25/20 06/08/20 PAMOATE] Previous Rx's Medication Instructions Recorded Aspirin 325 mg PO DAILY 30 Days #30 tab 06/06/20 Ciprofloxacin HCl [Cipro] 500 mg PO BID 7 Days #14 tab 06/06/20 Nitroglycerin Sl Tabs [Nitrostat] 0.4 mg SUBLINGUAL Q5M PRN #30 tab 06/06/20 Torsemide [Demadex] 20 mg PO BID 30 Days #60 tab 06/06/20 Allergies Allergy/AdvReac Type Severity Reaction Status Date / Time midodrine 10mg tablets AdvReac Arm Uncoded 06/08/20 17:44 Swelling-see comments Review of Systems ROS Statement: Those systems with pertinent positive or pertinent negative responses have been documented in the HPI. ROS Other: All systems not noted in ROS Statement are negative. Past Medical History Past Medical History: Atrial Fibrillation, Coronary Artery Disease (CAD), Chest Pain / Angina, Heart Failure, Eye Disorder, Hearing Disorder / Deafness, Liver Disease, Myocardial Infarction (ND), Osteoarthritis (OA), Syncope, Thyroid Disor aby Additional Past Medical History / Comment(s): Chronic Afib, 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/ascitis with multiple paracentesis, chronic CHF, 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, BPH with surgery, hypothyroid, sinus drainage, LUMBEE bilaterally with hearing aides, arthritis in back and hands, R eye surgery for membrane not "sealing"-vision is good, Last Myocardial Infarction Date:: 02/2018 History of Any Multi-Drug Resistant Organisms: None Reported Past Surgical History: Back Surgery, Heart Catheterization, Hernia Repair, Joint Replacement, Orthopedic Surgery, Prostate Surgery Additional Past Surgical History / Comment(s): Multiple paracentesis, 2018 cardiac cath-treat medically, total L knee arthroplasty, lower back surgery, bilateral carpal tunnel releases, TURP, R inguinal hernia repair, colonoscopies with benign polypectomies, R eye corneal transplant/keratoplasty Past Anesthesia/Blood Transfusion Reactions: No Reported Reaction Past Psychological History: No Psychological Hx Reported Smoking Status: Former smoker Past Alcohol Use History: None Reported Past Drug Use History: None Reported - Past Family History Father Family Medical History: Cancer Additional Family Medical History / Comment(s): Father from pancreas/liver cancer at the age of 65 yrs. Daughter(s) Family Medical History: Cancer Additional Family Medical History / Comment(s): perineal CA Brca1 gene Mother Family Medical History: No Reported History Additional Family Medical History / Comment(s): Mother lived to be 94 yrs old. General Exam - General Exam Comments Initial Comments: GENERAL: Patient is well-developed and well-nourished. Patient is nontoxic and well- hydrated and is in no acute distress. ENT: Neck is soft and supple. No significant lymphadenopathy is noted. Oropharynx is clear. Moist mucous membranes. Neck has full range of motion without eliciting any pain. EYES: The sclera were anicteric and conjunctiva were pink and moist. Extraocular movements were intact and pupils were equal round and reactive to light. Eyelids were unremarkable. PULMONARY: Unlabored respirations. Good breath sounds bilaterally. No audible rales rh onchi or wheezing was noted. CARDIOVASCULAR: There is a regular rate and rhythm without any murmurs gallops or rubs. ABDOMEN: Soft and nontender with normal bowel sounds. SKIN: Skin is clear with no lesions or rashes and otherwise unremarkable. NEUROLOGIC: Patient is alert and oriented 1. Cranial nerves II through XII are grossly intact. Motor and sensory are also intact. Normal speech, volume and content. Symmetrical smile. MUSCULOSKELETAL: Normal extremities with adequate strength and full range of motion. 2+ edema bilaterally LYMPHATICS: No significant lymphadenopathy is noted PSYCHIATRIC: Patient is only oriented times one therefore unable to assess Limitations: no limitations Course Vital Signs 06/08/20 06/08/20 06/08/20 14:29 15:00 15:08 Temperature 98.2 F Pulse Rate 77 70 68 Respiratory 20 20 Rate Blood Pressure 81/52 80/52 O2 Sat by Pulse 88 L 91 L Oximetry 06/08/20 06/08/20 06/08/20 15:27 16:00 17:00 Temperature Pulse Rate 77 77 62 Respiratory 18 18 Rate Blood Pressure 92/50 95/56 O2 Sat by Pulse 93 L 94 L Oximetry 06/08/20 06/08/20 18:00 18:30 Temperature 98.0 F Pulse Rate 58 L 74 Respiratory 18 18 Rate Blood Pressure 94/52 89/52 O2 Sat by Pulse 94 L 95 Oximetry Medical Decision Making - Medical Decision Making EKG shows atrial fibrillation at 81 bpm QRS is 98 QT interval is 416 QTC is 483. Patient's EKG shows no ST segment elevation or depression. Chest x-ray shows no acute abnormality noted. There is point was elevated and patient's sodium was 127 and patient had a significant lesion on the penis which looks like it was secondary to pressure sore. - Lab Data Result diagrams: 06/08/20 15:28 06/08/20 15:28 Lab Results 06/08/20 06/08/20 06/08/20 Range/Units 15:28 15:28 15:28 WBC 10.5 (3.8-10.6) k/uL RBC 3.38 L (4.30-5.90) m/uL Hgb 11.1 L (13.0-17.5) gm/dL Hct 32.8 L (39.0-53.0) % MCV 97.1 (80.0-100.0) fL MCH 32.9 (25.0-35.0) pg MCHC 33.8 (31.0-37.0) g/dL RDW 15.3 (11.5-15.5) % Plt Count 196 D (150-450) k/uL MPV 8.1 Neutrophils % 89 % Lymphocytes % 5 % Monocytes % 3 % Eosinophils % 2 % Basophils % 0 % Neutrophils # 9.4 H (1.3-7.7) k/uL Lymphocytes # 0.5 L (1.0-4.8) k/uL Monocytes # 0.3 (0-1.0) k/uL Eosinophils # 0.2 (0-0.7) k/uL Basophils # 0.0 (0-0.2) k/uL PT 12.0 (9.0-12.0) sec INR 1.2 H (<1.2) APTT 28.6 (22.0-30.0) sec Sodium 127 L (137-145) mmol/L Potassium 4.2 (3.5-5.1) mmol/L Chloride 103 (98-107) mmol/L Carbon Dioxide 15 L (22-30) mmol/L Anion Gap 9 mmol/L BUN 73 H (9-20) mg/dL Creatinine 1.57 H (0.66-1.25) mg/dL Est GFR (CKD-EPI)AfAm 45 (>60 ml/min/1.73 sqM) Est GFR (CKD-EPI)NonAf 39 (>60 ml/min/1.73 sqM) Glucose 131 H (74-99) mg/dL Plasma Lactic Acid Prabhu (0.7-2.0) mmol/L Calcium 7.7 L (8.4-10.2) mg/dL Magnesium 1.9 (1.6-2.3) mg/dL Total Bilirubin 1.6 H (0.2-1.3) mg/dL AST 71 H (17-59) U/L ALT 66 H (4-49) U/L Alkaline Phosphatase 196 H (38-126) U/L Troponin I (0.000-0.034) ng/mL NT-Pro-B Natriuret Pep pg/mL Total Protein 4.9 L (6.3-8.2) g/dL Albumin 2.4 L (3.5-5.0) g/dL Urine Color Urine Appearance (Clear) Urine pH (5.0-8.0) Ur Specific [place] (1.001-1.035) Urine Protein (Negative) Urine Glucose (UA) (Negative) Urine Ketones (Negative) Urine Blood (Negative) Urine Nitrite (Negative) Urine Bilirubin (Negative) Urine Urobilinogen (<2.0) mg/dL Ur Leukocyte Esterase (Negative) Urine RBC (0-5) /hpf Urine WBC (0-5) /hpf Ur Squamous Epith Cells (0-4) /hpf Urine Bacteria (None) /hpf Hyaline Casts (0-2) /lpf Urine Mucus (None) /hpf Urine Yeast (Budding) (None) /hpf 06/08/20 06/08/20 06/08/20 Range/Units 15:28 15:28 15:28 WBC (3.8-10.6) k/uL RBC (4.30-5.90) m/uL Hgb (13.0-17.5) gm/dL Hct (39.0-53.0) % MCV (80.0-100.0) fL MCH (25.0-35.0) pg MCHC (31.0-37.0) g/dL RDW (11.5-15.5) % Plt Count (150-450) k/uL MPV Neutrophils % % Lymphocytes % % Monocytes % % Eosinophils % % Basophils % % Neutrophils # (1.3-7.7) k/uL Lymphocytes # (1.0-4.8) k/uL Monocytes # (0-1.0) k/uL Eosinophils # (0-0.7) k/uL Basophils # (0-0.2) k/uL PT (9.0-12.0) sec INR (<1.2) APTT (22.0-30.0) sec Sodium (137-145) mmol/L Potassium (3.5-5.1) mmol/L Chloride (98-107) mmol/L Carbon Dioxide (22-30) mmol/L Anion Gap mmol/L BUN (9-20) mg/dL Creatinine (0.66-1.25) mg/dL Est GFR (CKD-EPI)AfAm (>60 ml/min/1.73 sqM) Est GFR (CKD-EPI)NonAf (>60 ml/min/1.73 sqM) Glucose (74-99) mg/dL Plasma Lactic Acid Prabhu 2.0 (0.7-2.0) mmol/L Calcium (8.4-10.2) mg/dL Magnesium (1.6-2.3) mg/dL Total Bilirubin (0.2-1.3) mg/dL AST (17-59) U/L ALT (4-49) U/L Alkaline Phosphatase (38-126) U/L Troponin I 1.010 H* (0.000-0.034) ng/mL NT-Pro-B Natriuret Pep 02227 pg/mL Total Protein (6.3-8.2) g/dL Albumin (3.5-5.0) g/dL Urine Color Urine Appearance (Clear) Urine pH (5.0-8.0) Ur Specific [place] (1.001-1.035) Urine Protein (Negative) Urine Glucose (UA) (Negative) Urine Ketones (Negative) Urine Blood (Negative) Urine Nitrite (Negative) Urine Bilirubin (Negative) Urine Urobilinogen (<2.0) mg/dL Ur Leukocyte Esterase (Negative) Urine RBC (0-5) /hpf Urine WBC (0-5) /hpf Ur Squamous Epith Cells (0-4) /hpf Urine Bacteria (None) /hpf Hyaline Casts (0-2) /lpf Urine Mucus (None) /hpf Urine Yeast (Budding) (None) /hpf 06/08/20 Range/Units 16:35 WBC (3.8-10.6) k/uL RBC (4.30-5.90) m/uL Hgb (13.0-17.5) gm/dL Hct (39.0-53.0) % MCV (80.0-100.0) fL MCH (25.0-35.0) pg MCHC (31.0-37.0) g/dL RDW (11.5-15.5) % Plt Count (150-450) k/uL MPV Neutrophils % % Lymphocytes % % Monocytes % % Eosinophils % % Basophils % % Neutrophils # (1.3-7.7) k/uL Lymphocytes # (1.0-4.8) k/uL Monocytes # (0-1.0) k/uL Eosinophils # (0-0.7) k/uL Basophils # (0-0.2) k/uL PT (9.0-12.0) sec INR (<1.2) APTT (22.0-30.0) sec Sodium (137-145) mmol/L Potassium (3.5-5.1) mmol/L Chloride (98-107) mmol/L Carbon Dioxide (22-30) mmol/L Anion Gap mmol/L BUN (9-20) mg/dL Creatinine (0.66-1.25) mg/dL Est GFR (CKD-EPI)AfAm (>60 ml/min/1.73 sqM) Est GFR (CKD-EPI)NonAf (>60 ml/min/1.73 sqM) Glucose (74-99) mg/dL Plasma Lactic Acid Prabhu (0.7-2.0) mmol/L Calcium (8.4-10.2) mg/dL Magnesium (1.6-2.3) mg/dL Total Bilirubin (0.2-1.3) mg/dL AST (17-59) U/L ALT (4-49) U/L Alkaline Phosphatase (38-126) U/L Troponin I (0.000-0.034) ng/mL NT-Pro-B Natriuret Pep pg/mL Total Protein (6.3-8.2) g/dL Albumin (3.5-5.0) g/dL Urine Color Yellow Urine Appearance Cloudy (Clear) Urine pH 5.0 (5.0-8.0) Ur Specific [place] 1.011 (1.001-1.035) Urine Protein Trace H (Negative) Urine Glucose (UA) Negative (Negative) Urine Ketones Negative (Negative) Urine Blood Moderate H (Negative) Urine Nitrite Negative (Negative) Urine Bilirubin Negative (Negative) Urine Urobilinogen <2.0 (<2.0) mg/dL Ur Leukocyte Esterase Large H (Negative) Urine RBC 18 H (0-5) /hpf Urine WBC 58 H (0-5) /hpf Ur Squamous Epith Cells 1 (0-4) /hpf Urine Bacteria Rare H (None) /hpf Hyaline Casts 37 H (0-2) /lpf Urine Mucus Rare H (None) /hpf Urine Yeast (Budding) Many H (None) /hpf Disposition Clinical Impression: Elevated troponin, Hyponatremia, Wound, open, penis Disposition: ADMITTED IP TO THIS HOSP Referrals: Angie Palomares MD [Primary Care Provider] - 1-2 days Time of Disposition: 17:59
[2020-06-08 15:53] LABS: Basophils % (A) 0 %; Eosinophils # (A) 0.2 k/uL (0-0.7); Eosinophils % (A) 2 %; HCT 32.8 % (39.0-53.0); HGB 11.1 gm/dL (13.0-17.5); Lymphocytes # (A) 0.5 k/uL (1.0-4.8); Lymphocytes % (A) 5 %; MCH 32.9 pg (25.0-35.0); MCHC 33.8 g/dL (31.0-37.0); MCV 97.1 fL (80.0-100.0); Mean Platelet Volume 8.1; Monocytes # (A) 0.3 k/uL (0-1.0); Monocytes % (A) 3 %; Neutrophils # (A) 9.4 k/uL (1.3-7.7); Neutrophils % (A) 89 %; RBC 3.38 m/uL (4.30-5.90); RDW 15.3 % (11.5-15.5); WBC 10.5 k/uL (3.8-10.6)
--- NOTE | 2020-06-08 15:59 | XR ---
EXAMINATION TYPE: XR chest 2V DATE OF EXAM: 06/08/2020 COMPARISON: 06/05/2020, 03/14/2018 INDICATION: Difficulty breathing TECHNIQUE: Frontal and lateral views of the chest are obtained. FINDINGS: The heart size is enlarged. The pulmonary vasculature is normal. There is a nodule at the right lung base measuring 1.4 cm.. Left central venous catheter has been removed. No pneumothorax is evident. IMPRESSION: 1. No acute pulmonary process. 2. Right lung nodule, stable from February 2018
[2020-06-08 16:00] LABS: Platelet Count 196 k/uL (150-450)
[2020-06-08 16:09] LABS: Albumin 2.4 g/dL (3.5-5.0); Calcium 7.7 mg/dL (8.4-10.2); Magnesium 1.9 mg/dL (1.6-2.3); Potassium 4.2 mmol/L (3.5-5.1); Total Bilirubin 1.6 mg/dL (0.2-1.3); Total Protein 4.9 g/dL (6.3-8.2)
[2020-06-08 16:10] LABS: INR 1.2 (<1.2); Partial Thromboplastin Time 28.6 sec (22.0-30.0)
[2020-06-08] MEDS ORDERED: ACETAMINOPHEN TAB 500 MG TAB PO STA (16:38)
[2020-06-08 16:55] LABS: Appearance,Urine Cloudy (Clear); Bacteria,Urine Rare /hpf; Bilirubin,Urine Negative (Negative); Blood,Urine Moderate (Negative); Budding Yeast,Urine Many /hpf; Color,Urine Yellow; Glucose,Urine (UA) Negative (Negative); Hyaline Casts,Urine 37 /lpf (0-2); Ketones,Urine Negative (Negative); Leukocyte Esterase,Urine Large (Negative); Mucus,Urine Rare /hpf; Nitrite,Urine Negative (Negative); Protein,Urine Trace (Negative); RBC,Urine 18 /hpf (0-5); Specific Gravity,Urine 1.011 (1.001-1.035); Squamous Epithelial Cell,Urine 1 /hpf (0-4); Urobilinogen,Urine <2.0 mg/dL (<2.0); WBC,Urine 58 /hpf (0-5)
[2020-06-08] MEDS ORDERED: SODIUM CHLORIDE 0.9% 1,000 ML IV ONE (20:33)
[2020-06-08] MEDS ORDERED: hydrOXYzine pamoate 25 MG CAP PO SCH (23:00)
[2020-06-08] MEDS: SPIRONOLACTONE 25 MG TAB PO SCH (23:35)
[2020-06-08] MEDS: TORSEMIDE 20 MG TAB PO SCH (23:36)
[2020-06-08] MEDS: ACETAMINOPHEN TAB 325 MG TAB PO PRN (23:36)
[2020-06-08] MEDS: SODIUM BICARBONATE TAB 650 MG TAB PO SCH (23:36)
[2020-06-09] MEDS ORDERED: LEVOTHYROXINE 50 MCG TAB PO SCH (08:00)
[2020-06-09] MEDS ORDERED: ATORVASTATIN 40 MG TAB PO SCH (08:00)
[2020-06-09] MEDS: MIDODRINE 5 MG TAB PO SCH ×3 (09:22→16:48)
[2020-06-09] MEDS: SODIUM BICARBONATE TAB 650 MG TAB PO SCH (09:23)
[2020-06-09] MEDS: TORSEMIDE 20 MG TAB PO SCH (09:24)
[2020-06-09] MEDS: SPIRONOLACTONE 25 MG TAB PO SCH (09:24)
--- NOTE | 2020-06-09 11:54 | P.CRDCN ---
History of Present Illness Consult date: 06/09/20 Reason for Consult (text): Troponin elevation Chief complaint: Shortness of breath/troponin elevation History of present illness: HISTORY OF PRESENT ILLNESS AND PLAN: This is a 89-year-old elderly male with history of failure to thrive, malnutrition, cirrhosis of the liver, ascites, paracentesis history, BPH, urinary retention, hypothyroid, chronic atrial fibrillation, hyperlipidemia, hypotension, bradycardia/SSS, mild to moderate CAD via cardiac cath 02/2018, chronic combined systolic/diastolic CHF and chronic low sodium. Patient examined this a.m. lying in bed in no acute distress but looks extremely weak. Patient mildly confused and may be a poor historian. Patient has had multiple admissions in the past few months for failure to thrive, malnutrition, urinary retention, hypotension, low sodium and acute on chronic systolic/diastolic CHF. Patient looks to be very fragile and prognosis is guarded. Hospice had been discussed in prior admissions. Patient blood pressure remains low 78/50, afebrile and sats 95% on 3 L nasal cannula. Pt continues controlled chronic atrial fibrillation on tele, HR 70's. Anticoagulated with Eliquis 2.5 mg for renal dosing. Most recent EF 50-55%, severe LVH and mod to severe MR. Patient has no current complaints of chest pain, chest pressure or palpitations. Patient does have complaints of exertional shortness of breath, fatigue and extreme weakness. DX of chest, normal. Troponin elevation at 1.0, 0.96, 0.97 possibly secondary to acute on chronic kidney injury (similar to last admission). Patient looks to be very malnourished, has eaten very little breakfast. Pt has generalized third spacing. Generalized skin tear with bruising. Sodium remains low this admission at 127. Albumin 2.4 and Protein 4.9, both low. BNP 27,000. BUN/CR 73/1.57. Pt has Encinas catheter currently to help with urine retention. Pt has a wound on penis that is infected, swab sent for cultures. Patient follows with Dr. Bucio in office. Never smoker. No ETOH use/history. SIGNIFICANT PAST MEDICAL HISTORY: Failure to thrive, malnutrition, cirrhosis of the liver, ascites, paracentesis history, BPH, urinary retention, hypothyroid, chronic atrial fibrillation, hyperlipidemia, hypotension, bradycardia/SSS, mild to moderate CAD via cardiac cath 02/2018, CHF and chronic low sodium. PAST SURGICAL HISTORY: See list. EKG = Atrial fibrillation, HR 70's. Troponins negative positive x 3, 1.0, 0.96, 0.97 possibly secondary to acute on chronic kidney injury (similar to last admission) SIGNIFICANT LABORATORY VALUES: Sodium 127. Albumin 2.4 and Protein 4.9, both low . BNP 27,000. BUN/CR 73/1.57. Chest x-ray 06/08/20, normal. RIGHT lung nodule unchanged from 2018. Most recent echo 05/25/2020 = EF 50-55%, severe concentric LVH. Grade 2 diastolic dysfunction. RV mildly enlarged. LA severely dilated. RA moderately enlarged. mild aortic valve sclerosis. Moderate MR. Moderate to severe TR. Moderate pulmonary hypertension. 51.33 mmHg. Trivial pericardial effusion. Most recent cardiac cath = February 2018 40-50% LAD stenosis. RCA and circumflex free of stenosis. REVIEW OF SYSTEMS: CONSTITUTIONAL: Denies fever. Denies chills. EYES: Denies blurred vision. Denies blurred vision or vision changes. Denies eye pain. EARS, NOSE, MOUTH & THROAT: Denies headache. Denies sore throat. Denies ear pain Denies hemoptysis. CARDIOVASCULAR: Denies chest pain. Complains of shortness of breath. Denies orthopnea. Denies PND. Denies palpitations. RESPIRATORY: Denies cough. Complains of shortness of breath. GASTROINTESTINAL: Denies abdominal pain or distention. Denies diarrhea. Denies constipation. Denies nausea. Denies vomiting. MUSCULOSKELETAL: Complains of myalgias. Complains of weakness. INTEGUMENTARY: Denies pruitis. Denies rash. ENDOCRINE: Complains of fatigue. Denies weight change. Denies polydipsia. Denies polyurina Denies heat/cold intolerance. GENITOURINARY: Denies burning, hematuria or urgency with micturation. HEMATOLOGIC: Denies history of anemia. Denies bleeding. Complains of bruising. NEUROLOGIC: Denies numbness. Denies tingling. Complains of weakness. PSYCHIATRIC: Denies anxiety. Denies depression. PHYSICAL EXAM: GENERAL: Weak, fatigued. No acute distress. HEENT: Head is atraumatic, normocephalic. Pupils are equal, round. Extra ocular movements intact. Mucous membranes moist. Neck supple. No JVD. No carotid bruit. No thyromegaly. LUNGS: Bilateral wheeze/rhonchi to auscultation. No chest wall tenderness on palpation or with deep breathing. HEART: Irregular rhythm, controlled rate. No rubs or gallops. S1 and S2 heard. III/ holosystolic murmur at the base and he is in the morning. ABDOMEN: Abdominal exam, WNL. Bowel sounds x4 quads. Soft, non-tender, without m asses, organomegaly, or abdominal aorta enlargement. EXTREMITIES/VASCULAR: Extremities have easily palpable radial, femoral, dorsalis pedis and posterior tibial pulses. No cyanosis, calf tenderness. 3+ BLE edema. Generalized edema with severe scrotal edema. NEUROLOGIC: Patient is awake, alert and oriented x1-2. No focal neurologic abnormalities. INTEGUMENT: Generalized edema, scrotal edema, penis wound, generalized skin tears, generalized bruising. FINAL IMPRESSION: 1. Chronic atrial fibrillation, controlled rate 2. CAD, mild to moderate 3. Acute on chronic systolic/diastolic CHF 4. Low protein/low albumin, malnutrition 5. Troponin elevation, no acute cardiology process PLAN: Continue telemetry. Troponin elevation secondary to acute kidney injury. No significant CAD by cardiac cath 2018. No acute myocardial injury. Continue same medical/medication regime. Chronic malnutrition, advised high protein diet. Prognosis guarded. Nurse Practitioner note has been reviewed by the Physician. Signing provider agrees with the documented findings, assessment and plan of care. Past Medical History Past Medical History: Atrial Fibrillation, Coronary Artery Disease (CAD), Chest Pain / Angina, Heart Failure, Eye Disorder, Hearing Disorder / Deafness, Liver Disease, Myocardial Infarction (MS), Osteoarthritis (OA), Syncope, Thyroid Disorder Additional Past Medical History / Comment(s): Chronic Afib, 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/ascitis with multiple paracentesis, chronic CHF, 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, BPH with surgery, hypothyroid, sinus drainage, [place] bilaterally with hearing aides, arthritis in back and hands, R eye surgery for membrane not "sealing"-vision is good, Last Myocardial Infarction Date:: 02/2018 History of Any Multi-Drug Resistant Organisms: None Reported Past Surgical History: Back Surgery, Heart Catheterization, Hernia Repair, Joint Replacement, Orthopedic Surgery, Prostate Surgery Additional Past Surgical History / Comment(s): Multiple paracentesis, 2018 cardiac cath-treat medically, total L knee arthroplasty, lower back surgery, bilateral carpal tunnel releases, TURP, R inguinal hernia repair, colonoscopies with benign polypectomies, R eye corneal transplant/keratoplasty Past Anesthesia/Blood Transfusion Reactions: No Reported Reaction Past Psychological History: No Psychological Hx Reported Additional Psychological History / Comment(s): Pt and his spouse reside with their daughter. Daughter assists pt when needed. Pt uses a walker to ambulate. Pt served in the [employer]. Daughters drive pt to [place]. Smoking Status: Former smoker Past Alcohol Use History: None Reported Additional Past Alcohol Use History / Comment(s): Pt smoked from 1949 until 89 Past Drug Use History: None Reported - Past Family History Father Family Medical History: Cancer Additional Family Medical History / Comment(s): Father from pancreas/liver cancer at the age of 65 yrs. Daughter(s) Family Medical History: Cancer Additional Family Medical History / Comment(s): perineal CA Brca1 gene Mother Family Medical History: No Reported History Additional Family Medical History / Comment(s): Mother lived to be 94 yrs old. Medications and Allergies Home Medications Medication Instructions Recorded Confirmed Type Atorvastatin [Lipitor] 40 mg PO DAILY@0800 05/30/19 06/08/20 History Levothyroxine Sodium [Synthroid] 175 mcg PO DAILY@0800 06/02/19 06/08/20 History Apixaban [Eliquis] 2.5 mg PO DAILY@0800 12/05/19 06/08/20 History Sodium Bicarbonate Tab 650 mg PO BID@0800,2100 12/05/19 06/08/20 History Midodrine [ProAmatine] 10 mg PO TID@0800,1200,1600 05/15/20 06/08/20 History Spironolactone [Aldactone] 25 mg PO BID@0800,2100 05/15/20 06/08/20 History hydrOXYzine pamoate [hydrOXYzine 12.5 mg PO HS 05/25/20 06/08/20 History PAMOATE] Aspirin 325 mg PO DAILY 30 Days #30 tab 06/06/20 06/08/20 Rx Ciprofloxacin HCl [Cipro] 500 mg PO BID 7 Days #14 tab 06/06/20 06/08/20 Rx Nitroglycerin Sl Tabs [Nitrostat] 0.4 mg SUBLINGUAL Q5M PRN #30 tab 06/06/20 06/08/20 Rx Torsemide [Demadex] 20 mg PO BID 30 Days #60 tab 06/06/20 06/08/20 Rx Allergies Allergy/AdvReac Type Severity Reaction Status Date / Time midodrine 10mg tablets AdvReac Arm Uncoded 06/08/20 17:44 Swelling-see comments Physical Exam Vitals: Vital Signs Temp Pulse Pulse Resp BP BP Pulse Ox 06/09/20 03:23 75 19 06/09/20 03:22 97.5 F L 75 19 84/62 95 06/09/20 00:45 82/56 06/08/20 23:54 75 20 06/08/20 23:52 97.6 F 75 20 78/50 96 06/08/20 22:47 97.5 F L 77 19 72/44 95 06/08/20 21:35 90 14 83/54 94 L 06/08/20 18:30 74 18 89/52 95 06/08/20 18:00 98.0 F 58 L 18 94/52 94 L 06/08/20 17:00 62 18 95/56 94 L 06/08/20 16:00 77 18 92/50 93 L 06/08/20 15:27 77 06/08/20 15:08 68 06/08/20 15:00 70 20 80/52 91 L 06/08/20 14:29 98.2 F 77 20 81/52 88 L Intake and Output 06/08/20 06/09/20 06/09/20 22:59 06:59 14:59 Intake Total 50 120 Output Total 45 200 Balance 5 -200 120 Intake: Intake, IV Titration 50 Amount cefTRIAXone 2 gm In 50 Sodium Chloride 0.9% 50 ml @ 100 mls/hr IVPB ONCE STA Rx#:[id number] Oral 120 Output: Urine 45 200 Other: Voiding Method Indwelling Catheter Weight 92 kg 92 kg Results 06/08/20 15:28 06/08/20 15:28 Cardiac Enzymes 06/08/20 06/08/20 06/08/20 Range/Units 15:28 15:28 20:17 AST 71 H (17-59) U/L Troponin I 1.010 H* 0.960 H* (0.000-0.034) ng/mL 06/08/20 Range/Units 23:06 AST (17-59) U/L Troponin I 0.975 H* (0.000-0.034) ng/mL Coagulation 06/08/20 Range/Units 15:28 PT 12.0 (9.0-12.0) sec APTT 28.6 (22.0-30.0) sec CBC 06/08/20 Range/Units 15:28 WBC 10.5 (3.8-10.6) k/uL RBC 3.38 L (4.30-5.90) m/uL Hgb 11.1 L (13.0-17.5) gm/dL Hct 32.8 L (39.0-53.0) % Plt Count 196 D (150-450) k/uL Comprehensive Metabolic Panel 06/08/20 Range/Units 15:28 Sodium 127 L (137-145) mmol/L Potassium 4.2 (3.5-5.1) mmol/L Chloride 103 (98-107) mmol/L Carbon Dioxide 15 L (22-30) mmol/L BUN 73 H (9-20) mg/dL Creatinine 1.57 H (0.66-1.25) mg/dL Glucose 131 H (74-99) mg/dL Calcium 7.7 L (8.4-10.2) mg/dL AST 71 H (17-59) U/L ALT 66 H (4-49) U/L Alkaline Phosphatase 196 H (38-126) U/L Total Protein 4.9 L (6.3-8.2) g/dL Albumin 2.4 L (3.5-5.0) g/dL Current Medications Generic Name Dose Route Start Last Admin Trade Name Freq PRN Reason Stop Dose Admin Acetaminophen 650 mg 06/08/20 22:59 06/08/20 23:36 Acetaminophen Tab 325 Mg Tab PO 650 mg Q6HR PRN Administration Fever and/ or Pain Atorvastatin Calcium 40 mg 06/09/20 08:00 06/09/20 09:24 Atorvastatin 40 Mg Tab PO 40 mg DAILY@0800 SHAINA Administration Hydroxyzine Pamoate 12.5 mg 06/08/20 23:00 06/08/20 23:04 Hydroxyzine Pamoate 25 Mg Cap PO Not Given HS SHAINA Levothyroxine Sodium 175 mcg 06/09/20 08:00 06/09/20 09:23 Levothyroxine 50 Mcg Tab PO 175 mcg DAILY@0800 SHAINA Administration Midodrine 10 mg 06/09/20 08:00 06/09/20 09:22 Midodrine 5 Mg Tab PO 10 mg TID@0800,1200,1600 SHAINA Administration Sodium Bicarbonate 650 mg 06/08/20 23:00 06/09/20 09:23 Sodium Bicarbonate Tab 650 Mg Tab PO 650 mg BID@0800,2100 SHAINA Administration Spironolactone 25 mg 06/08/20 23:00 06/09/20 09:24 Spironolactone 25 Mg Tab PO 25 mg BID@0800,2100 SHAINA Administration Torsemide 20 mg 06/08/20 23:00 06/09/20 09:24 Torsemide 20 Mg Tab PO 20 mg BID SHAINA Administration Intake and Output 06/08/20 06/09/20 06/09/20 22:59 06:59 14:59 Intake Total 50 120 Output Total 45 200 Balance 5 -200 120 Intake: Intake, IV Titration 50 Amount cefTRIAXone 2 gm In 50 Sodium Chloride 0.9% 50 ml @ 100 mls/hr IVPB ONCE STA Rx#:[id number] Oral 120 Output: Urine 45 200 Other: Voiding Method Indwelling Catheter Weight 92 kg 92 kg 06/08/20 15:28 06/08/20 15:28 - EKG Interpretation EKG shows: atrial fibrillation (he is) EKG Interpretations (text) Controlled atrial fibrillation
--- NOTE | 2020-06-09 12:48 | P.HPIM ---
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 Patient was recently admitted to hospital due to acute hypoxic respiratory failure secondary to CHF exacerbation diastolic dysfunction and left lower lobe pneumonia and also amoxicillin bacteremia. Patient was discharged home with home physical therapy as per family request. Family refused to go to rehab at the time. Patient was brought back to the hospital with complaints of shortness of breath and failure to thrive and confusion. On admission patient was hypotensive with blood pressure 72/44, heart rate of 77 and pulse ox percent on 3 L nausea cannula oxygen. Patient has been afebrile. Patient was given IV hydration in the ER. Laboratory data showed WBC 10.1, hemoglobin 11.1 and platelets were 96 INR 1.2, sodium 127, potassium 4.2 and bicarb is 15 and BUN 73 and creatinine 1.57 Lactic acid level was 2.0 extended total bilirubin 1.6AST 71 and ALT of 66 and alk phos 196 Troponin 1.010 and proBNP 27 600 and albumin 2.4 Urinalysis showed cloudy with large leukocyte esterase and 58 WBCs Patient is currently more awake and oriented today but still confused. Does have Encinas catheter due to urinary retention and canal wound. Patient is on antibiotics in the form of ciprofloxacin currently, Which will be continued. Chest x-ray showed no acute pulmonary process. Right lung nodule stable from February. Review of Systems Constitutional: Patient denies any fever or chills . Generalized weakness. Abdomen: Patient denied nausea vomiting and diarrhea and abdominal pain. Cardiovascular: Patient denies any chest pain, no palpitations. Respiratory: patient denied any cough is from production. Does have shortness of breath Neurologic: Patient denied any numbness or tingling headache. Complete review of systems could not be obtained from the patient. Past Medical History Past Medical History: Atrial Fibrillation, Coronary Artery Disease (CAD), Chest Pain / Angina, Heart Failure, Eye Disorder, Hearing Disorder / Deafness, Liver Disease, Myocardial Infarction (CA), Osteoarthritis (OA), Syncope, Thyroid Disorder Additional Past Medical History / Comment(s): Chronic Afib, 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/ascitis with multiple paracentesis, chronic CHF, 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, BPH with surgery, hypothyroid, sinus drainage, [place] bilaterally with hearing aides, arthritis in back and hands, R eye surgery for membrane not "sealing"-vision is good, Last Myocardial Infarction Date:: 02/2018 History of Any Multi-Drug Resistant Organisms: None Reported Past Surgical History: Back Surgery, Heart Catheterization, Hernia Repair, Joint Replacement, Orthopedic Surgery, Prostate Surgery Additional Past Surgical History / Comment(s): Multiple paracentesis, 2018 cardiac cath-treat medically, total L knee arthroplasty, lower back surgery, bilateral carpal tunnel releases, TURP, R inguinal hernia repair, colonoscopies with benign polypectomies, R eye corneal transplant/keratoplasty Past Anesthesia/Blood Transfusion Reactions: No Reported Reaction Past Psychological History: No Psychological Hx Reported Additional Psychological History / Comment(s): Pt and his spouse reside with their daughter. Daughter assists pt when needed. Pt uses a walker to ambulate. Pt served in the [employer]. Daughters drive pt to [employer]. Smoking Status: Former smoker Past Alcohol Use History: None Reported Additional Past Alcohol Use History / Comment(s): Pt smoked from 1949 until 1951 Past Drug Use History: None Reported - Past Family History Father Family Medical History: Cancer Additional Family Medical History / Comment(s): Father from pancreas/liver cancer at the age of 65 yrs. Daughter(s) Family Medical History: Cancer Additional Family Medical History / Comment(s): perineal CA Brca1 gene Mother Family Medical History: No Reported History Additional Family Medical History / Comment(s): Mother lived to be 94 yrs old. Medications and Allergies Home Medications Medication Instructions Recorded Confirmed Type Atorvastatin [Lipitor] 40 mg PO DAILY@0800 05/30/19 06/08/20 History Levothyroxine Sodium [Synthroid] 175 mcg PO DAILY@0800 06/02/19 06/08/20 History Apixaban [Eliquis] 2.5 mg PO DAILY@0800 12/05/19 06/08/20 History Sodium Bicarbonate Tab 650 mg PO BID@0800,2100 12/05/19 06/08/20 History Midodrine [ProAmatine] 10 mg PO TID@0800,1200,1600 05/15/20 06/08/20 History Spironolactone [Aldactone] 25 mg PO BID@0800,2100 05/15/20 06/08/20 History hydrOXYzine pamoate [hydrOXYzine 12.5 mg PO HS 05/25/20 06/08/20 History PAMOATE] Aspirin 325 mg PO DAILY 30 Days #30 tab 06/06/20 06/08/20 Rx Ciprofloxacin HCl [Cipro] 500 mg PO BID 7 Days #14 tab 06/06/20 06/08/20 Rx Nitroglycerin Sl Tabs [Nitrostat] 0.4 mg SUBLINGUAL Q5M PRN #30 tab 06/06/20 06/08/20 Rx Torsemide [Demadex] 20 mg PO BID 30 Days #60 tab 06/06/20 06/08/20 Rx Allergies Allergy/AdvReac Type Severity Reaction Status Date / Time midodrine 10mg tablets AdvReac Arm Uncoded 06/08/20 17:44 Swelling-see comments Physical Exam Vitals: Vital Signs Temp Pulse Pulse Resp BP BP Pulse Ox 06/09/20 03:23 75 19 06/09/20 03:22 97.5 F L 75 19 84/62 95 06/09/20 00:45 82/56 06/08/20 23:54 75 20 06/08/20 23:52 97.6 F 75 20 78/50 96 06/08/20 22:47 97.5 F L 77 19 72/44 95 06/08/20 21:35 90 14 83/54 94 L 06/08/20 18:30 74 18 89/52 95 06/08/20 18:00 98.0 F 58 L 18 94/52 94 L 06/08/20 17:00 62 18 95/56 94 L 06/08/20 16:00 77 18 92/50 93 L 06/08/20 15:27 77 06/08/20 15:08 68 06/08/20 15:00 70 20 80/52 91 L 06/08/20 14:29 98.2 F 77 20 81/52 88 L Intake and Output 06/08/20 06/09/20 06/09/20 22:59 06:59 14:59 Intake Total 50 Output Total 45 200 Balance 5 -200 Intake: Intake, IV Titration 50 Amount cefTRIAXone 2 gm In 50 Sodium Chloride 0.9% 50 ml @ 100 mls/hr IVPB ONCE STA Rx#:[id number] Output: Urine 45 200 Other: Voiding Method Indwelling Catheter Weight 92 kg 92 kg PHYSICAL EXAMINATION: Patient is lying in the bed comfortably, no acute distress, awake alert and oriented 1-2. Confusion... HEENT: Normocephalic. Neck is supple. Pupils reactive. Nostrils clear. Oral cavity is moist. Ears reveal no drainage. Neck reveals no JVD, carotid bruits, or thyromegaly. CHEST EXAMINATION: Trachea is central. Symmetrical expansion. Bibasilar diminished air entry and crackles and no wheezing. Lung guy clear to auscultation and percussion. CARDIAC: Normal S1, S2 with no gallops. Systolic murmur ABDOMEN: Soft. Bowel sounds normal. No organomegaly. No abdominal bruits. Extremities: 2+ edema. No clubbing or cyanosis Neurologically awake, alert, oriented order to with well-coordinated movements. No gross focal deficits noted Skin: No rash or skin lesions. Psychiatric: Coperative. Could not be a completely Musculoskeletal: No joint swelling or deformity. Normal range of motion. Results CBC & Chem 7: 06/08/20 15:28 06/08/20 15:28 Labs: Abnormal Lab Results - Last 24 Hours (Table) 06/08/20 06/08/20 06/08/20 Range/Units 15:28 15:28 15:28 RBC 3.38 L (4.30-5.90) m/uL Hgb 11.1 L (13.0-17.5) gm/dL Hct 32.8 L (39.0-53.0) % Neutrophils # 9.4 H (1.3-7.7) k/uL Lymphocytes # 0.5 L (1.0-4.8) k/uL INR 1.2 H (<1.2) Sodium 127 L (137-145) mmol/L Carbon Dioxide 15 L (22-30) mmol/L BUN 73 H (9-20) mg/dL Creatinine 1.57 H (0.66-1.25) mg/dL Glucose 131 H (74-99) mg/dL Calcium 7.7 L (8.4-10.2) mg/dL Total Bilirubin 1.6 H (0.2-1.3) mg/dL AST 71 H (17-59) U/L ALT 66 H (4-49) U/L Alkaline Phosphatase 196 H (38-126) U/L Troponin I (0.000-0.034) ng/mL Total Protein 4.9 L (6.3-8.2) g/dL Albumin 2.4 L (3.5-5.0) g/dL Urine Protein (Negative) Urine Blood (Negative) Ur Leukocyte Esterase (Negative) Urine RBC (0-5) /hpf Urine WBC (0-5) /hpf Urine Bacteria (None) /hpf Hyaline Casts (0-2) /lpf Urine Mucus (None) /hpf Urine Yeast (Budding) (None) /hpf 06/08/20 06/08/20 06/08/20 Range/Units 15:28 16:35 20:17 RBC (4.30-5.90) m/uL Hgb (13.0-17.5) gm/dL Hct (39.0-53.0) % Neutrophils # (1.3-7.7) k/uL Lymphocytes # (1.0-4.8) k/uL INR (<1.2) Sodium (137-145) mmol/L Carbon Dioxide (22-30) mmol/L BUN (9-20) mg/dL Creatinine (0.66-1.25) mg/dL Glucose (74-99) mg/dL Calcium (8.4-10.2) mg/dL Total Bilirubin (0.2-1.3) mg/dL AST (17-59) U/L ALT (4-49) U/L Alkaline Phosphatase (38-126) U/L Troponin I 1.010 H* 0.960 H* (0.000-0.034) ng/mL Total Protein (6.3-8.2) g/dL Albumin (3.5-5.0) g/dL Urine Protein Trace H (Negative) Urine Blood Moderate H (Negative) Ur Leukocyte Esterase Large H (Negative) Urine RBC 18 H (0-5) /hpf Urine WBC 58 H (0-5) /hpf Urine Bacteria Rare H (None) /hpf Hyaline Casts 37 H (0-2) /lpf Urine Mucus Rare H (None) /hpf Urine Yeast (Budding) Many H (None) /hpf 06/08/20 Range/Units 23:06 RBC (4.30-5.90) m/uL Hgb (13.0-17.5) gm/dL Hct (39.0-53.0) % Neutrophils # (1.3-7.7) k/uL Lymphocytes # (1.0-4.8) k/uL INR (<1.2) Sodium (137-145) mmol/L Carbon Dioxide (22-30) mmol/L BUN (9-20) mg/dL Creatinine (0.66-1.25) mg/dL Glucose (74-99) mg/dL Calcium (8.4-10.2) mg/dL Total Bilirubin (0.2-1.3) mg/dL AST (17-59) U/L ALT (4-49) U/L Alkaline Phosphatase (38-126) U/L Troponin I 0.975 H* (0.000-0.034) ng/mL Total Protein (6.3-8.2) g/dL Albumin (3.5-5.0) g/dL Urine Protein (Negative) Urine Blood (Negative) Ur Leukocyte Esterase (Negative) Urine RBC (0-5) /hpf Urine WBC (0-5) /hpf Urine Bacteria (None) /hpf Hyaline Casts (0-2) /lpf Urine Mucus (None) /hpf Urine Yeast (Budding) (None) /hpf Microbiology - Last 24 Hours (Table) 06/08/20 16:35 Gram Stain - Preliminary Other - Other Wound Culture - Preliminary 06/08/20 16:35 Urine Culture - Preliminary Urine,Voided Thrombosis Risk Factor Assmnt - DVT/VTE Prophylaxis DVT/VTE Prophylaxis: Pharmacologic Prophylaxis ordered - Choose All That Apply Any of the Below Risk Factors Present?: Yes Each Factor Represents 1 point: Medical pt on bed rest Other Risk Factors: Yes Each Risk Factor Represents 2 Points: Patient confined to bed Each Risk Factor Represents 3 Points: Age 75 years or older Other congenital or acquired thrombophilia - If yes, enter type in comment: No Thrombosis Risk Factor Assessment Total Risk Factor Score: 6 Thrombosis Risk Factor Assessment Level: High Risk Assessment and Plan Assessment: Acute on 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 Continue with antibiotic course. Elevated troponin level likely due to demand ischemia. Coronary artery disease with history of cardiac catheterization 2018. Chronic atrial fibrillation on anticoagulation to Eliquis Nonalcoholic liver cirrhosis with with recent ascites and recommended paracentesis every 5 weeks Hypovolemic hypotension. Improved now Valvular heart disease, with moderately severe mitral regurgitation, severe tricuspid regurgitation, and pulmonary hypertension with right-sided pressures 51 mmHg Mild to moderate protein calorie malnutrition Hypothyroidism BPH Urinary retention on indwelling Encinas catheter since last admission. Previous history of smoking DVT prophylaxis patient is already on Eliquis. Plan: Patient will be continued on torsemide and Aldactone. Monitor renal function. Continue with home medications including Midodrin. Blood pressure did improve currently. Patient was seen by cardiology and no further intervention recommended this time. Due to worsening shortness of breath with underlying diastolic and systolic CHF as well as liver cirrhosis with frequent ascites, patient's family would like to consider hospice care at this time. Prognosis poor due to underlying comorbid conditions. We will continue the current management including antibiotics and diuretics. Time with Patient: Greater than 30
[2020-06-09 13:20] VITALS: BMI 29.0
[2020-06-09 15:35] VITALS: RESP 18; TEMP 97.7
[2020-06-09] MEDS: ACETAMINOPHEN TAB 325 MG TAB PO PRN (16:47)
[2020-06-09 17:48] VITALS: BP 80/52; PULSE 78
--- NOTE | 2020-06-11 12:52 | CDI ---
Documentation Clarification Form Date: 06/10/20 From: Lisette Oconnor CCS Phone: If you have a question about this query, please contact Vernell Rocha Furniture Sprayer at [phone] between 8am and 5pm. Admit Date: 06/08/20 Discharge Date:06/09/20 Patient Name: Alaina Sanchez Visit Number: [id number] ATTENTION: The Clinical Documentation Specialists (CDI) and [facility] Coding Staff appreciate your assistance in clarifying documentation. Please respond to the clarification below the line at the bottom and electronically sign. The CDI & [facility] Coding staff will review the response and follow-up if needed. Please note: Queries are made part of the Legal Health Record. If you have any questions, please contact the author of this message via ITS. Dear Dr. Maldonado, A stage III pressure injury on coccyx was documented in the Dietary Consult. 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 Stage 1 Pressure/Decubitus Ulcer (intact skin, non-blanching redness of local area) Stage 2 Pressure/Decubitus Ulcer (Partial thickness, loss of dermis, pink wound bed) Stage 3 Pressure/Decubitus Ulcer (Full thickness tissue loss) Stage 4 Pressure/Decubitus Ulcer (Full thickness tissue loss with exposed bone, tendon, or muscle. May have slough or eschar present) Unstageable Other condition, please specify Unable to determine Stage 2 Pressure/Decubitus Ulcer MTDD
== END 2020-06-09 17:53 | disposition hospice, home (50) | DRG 291 ==
LOC: EC 14:26 → 3SCARD 20:33
PROVIDERS: ADMIT Hospitalist; ATTEND Hospitalist
DX: I13.0 Hypertensive heart and chronic kidney disease with heart failure and stage 1 through stage 4 chronic kidney disease, or unspecified chronic kidney disease (principal); I50.43 Acute on chronic combined systolic (congestive) and diastolic (congestive) heart failure; E87.1 Hypo-osmolality and hyponatremia; R18.8 Other ascites; I48.20 Chronic atrial fibrillation, unspecified; E44.0 Moderate protein-calorie malnutrition; N17.9 Acute kidney failure, unspecified; I27.22 Pulmonary hypertension due to left heart disease; I49.5 Sick sinus syndrome; L89.152 Pressure ulcer of sacral region, stage 2; R62.7 Adult failure to thrive; L89.899 Pressure ulcer of other site, unspecified stage; I95.9 Hypotension, unspecified; E86.1 Hypovolemia; K74.60 Unspecified cirrhosis of liver; Z66 Do not resuscitate; Z51.5 Encounter for palliative care; R77.8 Other specified abnormalities of plasma proteins; H91.90 Unspecified hearing loss, unspecified ear; I25.10 Atherosclerotic heart disease of native coronary artery without angina pectoris; M19.90 Unspecified osteoarthritis, unspecified site; N40.1 Benign prostatic hyperplasia with lower urinary tract symptoms; E03.9 Hypothyroidism, unspecified; R33.8 Other retention of urine; E78.5 Hyperlipidemia, unspecified; I08.3 Combined rheumatic disorders of mitral, aortic and tricuspid valves; R91.1 Solitary pulmonary nodule; N18.2 Chronic kidney disease, stage 2 (mild); I25.2 Old myocardial infarction; Z68.29 Body mass index [BMI] 29.0-29.9, adult; Z71.3 Dietary counseling and surveillance; Z79.899 Other long term (current) drug therapy; Z79.890 Hormone replacement therapy; Z79.01 Long term (current) use of anticoagulants; Z79.82 Long term (current) use of aspirin; Z88.8 Allergy status to other drugs, medicaments and biological substances; Z87.01 Personal history of pneumonia (recurrent); Z98.890 Other specified postprocedural states; Z94.7 Corneal transplant status; Z96.652 Presence of left artificial knee joint; Z87.891 Personal history of nicotine dependence; Z80.0 Family history of malignant neoplasm of digestive organs
CPT/HCPCS: 36415; 71046; 80053; 81001; 83605; 83735; 83880; 84484; 85025; 85610; 85730; 87040; 87070; 87086; 87205; 93005; 94640; 96365; 99285